=== PATIENT | female | born 1955 | race Caucasian/White ===

== ENCOUNTER 2017-10-02 16:30 | Inpatient (IN) ==
[2017-10-02] MEDS ORDERED: methylPREDNISolone 125 MG/2 ML VIAL IVP ONE (16:55)
[2017-10-02] MEDS ORDERED: Ipratropium/Albuterol Neb 3 ML IH ONE (16:55)
[2017-10-02] MEDS ORDERED: 0.9 % Sodium Chloride 1,000 ML IVC ONE (16:56)
[2017-10-02 17:04] LABS: Basophils # 0.1 K/mcL (0.0-0.2); Basophils % 0.7 %; Eosinophils # 0.1 K/mcL (0.0-0.6); Eosinophils % 0.8 %; Hemoglobin 18.9 g/dL (11.5-15.4); Immature Granulocytes % 0.4 % (0-4); Lymphocytes # 2.1 K/mcL (0.6-4.6); Lymphocytes % 15.2 %; Mean Corpuscular HGB Conc 32.8 g/dL (31.6-35.5); Mean Corpuscular Hemoglobin 30.6 pg (28.0-33.3); Mean Corpuscular Volume 93.2 fL (83.0-100.0); Mean Platelet Volume 11.3 fL (9.4-12.4); Neutrophils # 10.3 K/mcL (1.6-8.9); Platelet Count 187 K/mcL (140-400); Red Blood Count 6.18 M/mcL (3.82-4.97); Segmented Neutrophils % 75.9 %
[2017-10-02 17:06] LABS: Hematocrit 57.6 % (35.3-44.9)
[2017-10-02 17:15] LABS: ABG Base Excess 8 mEq/L (-2 to 3); ABG HCO3 36 mEq/L (21-27); ABG Oxygen Saturation 94 % (95-98); ABG PCO2 58 mmHg (35-45); ABG PO2 74 mmHg (85-104); ABG TCO2 37 mEq/L (20-26)
--- NOTE | 2017-10-02 17:18 | Emergency Department Note ---
START Narrative - START START: I examined this patient and my medical decision-making was reviewed with the Resident Physician. I agree with the documented findings, disposition and treatment plan as described except to the extent set forth below. 62 year old female presnt to the ED via EMS for hypoxia to 70% on 4LNC and typically wears 2.5LNC continously and has a history of COPD and is currently tachycardiac and states that she has gabo a productive cugh and has not had the flu shot this year. nida as been placed on bipap and states that she has been getting progressively worse over the past few days. WE will rule out PE, pneumonia, and/or ACOPDE. She will be admitted to medicine today. She is currently 94% on Bipap.
--- NOTE | 2017-10-02 17:20 | Emergency Department Note ---
Disposition Clinical Impression: COPD exacerbation Pneumonia Qualifiers: Pneumonia type: due to unspecified organism Laterality: bilateral Lung location : unspecified part of lung Qualified Code(s): J18.9 - Pneumonia, unspecified organism Disposition: Admitted As Inpatient Condition: Good SOB HPI - General Chief Complaint: ED Shortness of Breath/Dyspnea Stated Complaint: LIZZY Time Seen by Provider: 10/02/17 16:42 Source: patient Limitations: no limitations Nursing Notes Reviewed: Yes Vital Signs Reviewed: Yes - History of Present Illness COPD. On 2.5L of O2 at home. Continuing to use at home medications Increasing use of home oxygen Productive cough and subjective fevers. Patient presents for evaluation of shortness of breath. Patient states she felt something coming on approximately 2 weeks ago. She complains of a heaviness in her chest associated shortness of breath. Patient initially presents hypoxic at 74% on her home oxygen. Patient was laced on BiPAP with improvement of her oxygen saturation to 95%. Her normal oxygen saturation at home is anywhere from 88-91%. Diffuse wheezing bilaterally. - Related Data Home Medications Medication Instructions Recorded Confirmed Albuterol Sulfate [Ventolin Hfa] 2 puff IH Q4H PRN 10/02/17 10/02/17 Aspirin 325 mg PO DAILY 10/02/17 10/02/17 Fluticasone/Salmeterol [Advair 1 each IH BID 10/02/17 10/02/17 250-50 Diskus] Furosemide [Lasix] 20 mg PO TID 10/02/17 10/02/17 Ipratropium/Albuterol Neb [Duoneb] 3 ml IH Q6H PRN 10/02/17 10/02/17 Lisinopril/Hydrochlorothiazide 1 each PO BID 10/02/17 10/02/17 [Zestoretic 20-12.5 mg Tablet] Lovastatin [Lovastatin] 40 mg PO HS 10/02/17 10/02/17 Metoprolol [Lopressor] 100 mg PO BID 10/02/17 10/02/17 Oxygen 2 l NS AD 10/02/17 10/02/17 Potassium Chloride [Klor-Con 10] 5 meq PO DAILY 10/02/17 10/02/17 amLODIPine [Norvasc] 5 mg PO DAILY 10/02/17 10/02/17 Allergies Allergy/AdvReac Type Severity Reaction Status Date / Time Penicillins [PCN] Allergy Mild Rash Verified 01/01/16 21:52 All systems ED: reviewed and negative except as stated. Constitutional: Reports: fever, chills Cardiovascular: Reports: chest pain Respiratory: Reports: cough, dyspnea, wheezes, sputum production Gastrointestinal: Denies: abdominal pain, nausea, vomiting Genitourinary: Denies: urgency, dysuria Musculoskeletal: Denies: back pain Integumentary: Denies: rash, abrasion Endocrine: Reports: fatigue Past Medical History - Past Medical History Medical history: Reports: CHF, COPD, hypertension Psychiatric history: Reports: no psych history - Social History Smoking Status: Former smoker Smokeless Tobacco Status: No Alcohol use: Reports: none Drug use: Reports: none Physical Exam General appearance: Mild tachypnea persisted with breathing Eyes: anicteric sclerae, moist conjunctivae; PERRL HENT: Atraumatic; oropharynx clear with moist mucous membranes and no mucosal ulcerations Neck: Normal inspection; Trachea midline; FROM, supple Lungs: Diffuse wheezing bilaterally CV: Tachycardic, regular rhythm Abdomen: Soft, non-tender; no rebound or gaurding Extremities: No peripheral edema or extremity lymphadenopathy Skin: Normal temperature; no rash, ulcers or lesions Psych: Appropriate mood and affect Neuro: alert and oriented to person, place and time - General Limitations: no limitations General appearance: alert, in no apparent distress Course - Reevaluation(s) Reevaluation #1: Multifocal pneumonia on CTA. Ceftriaxone and azithromycin started. Last hospitalization was 2009. The patient does not want to be admitted to the hospital but understands the high risk of decompensation agrees to stay. The patient does not want intubated if it comes to that point. - Consultations Consultation #1: 7p Dr. Rene discussed with hospitalist. Pt accepted Vital Signs Temperature 98.2 F 10/02/17 16:36 Pulse Rate 112 10/02/17 16:36 Respiratory Rate 24 10/02/17 16:36 Blood Pressure 113/59 10/02/17 16:36 O2 Sat by Pulse Oximetry 64 10/02/17 16:36 Temperature 98.2 F 10/03/17 07:52 Pulse Rate 67 10/03/17 07:52 Respiratory Rate 16 10/03/17 07:52 Blood Pressure 114/63 10/03/17 07:52 O2 Sat by Pulse Oximetry 91 10/03/17 07:52 Oxygen Delivery Oxygen Delivery Bipap Shortness of Breath/Dyspnea - Lab Data Result diagrams: 10/03/17 03:52 10/03/17 03:52 Lab Results 10/02/17 10/02/17 10/02/17 Range/Units 16:55 16:55 16:55 WBC 13.6 H (4.3-11.1) K/mcL RBC 6.18 H (3.82-4.97) M/mcL Hgb 18.9 H (11.5-15.4) g/dL Hct 57.6 H (35.3-44.9) % MCV 93.2 (83.0-100.0) fL MCH 30.6 (28.0-33.3) pg MCHC 32.8 (31.6-35.5) g/dL RDW 15.0 H (11.5-14.5) % Plt Count 187 (140-400) K/mcL MPV 11.3 (9.4-12.4) fL Immature Gran % 0.4 (0-4) % Seg Neutrophils % 75.9 % Lymphocytes % 15.2 % Monocytes % 7.0 % Eosinophils % 0.8 % Basophils % 0.7 % Neutrophils # 10.3 H (1.6-8.9) K/mcL Lymphocytes # 2.1 (0.6-4.6) K/mcL Monocytes # 1.0 (0.0-1.3) K/mcL Eosinophils # 0.1 (0.0-0.6) K/mcL Basophils # 0.1 (0.0-0.2) K/mcL PT (9.4-12.1) Seconds INR APTT (26.0-36.0) Seconds ABG pH (7.32-7.45) pH Units ABG pCO2 (35-45) mmHg ABG pO2 (85-104) mmHg ABG HCO3 (21-27) mEq/L ABG Total CO2 (20-26) mEq/L ABG O2 Saturation (95-98) % ABG Base Excess (-2 to 3) mEq/L O2 Delivery Device Inspired O2 (1-15=lpm wx79-389=%) Sodium 139 (136-145) mEq/L Potassium 3.9 (3.5-5.1) mEq/L Chloride 96 L (98-107) mEq/L Carbon Dioxide 37 H (23-29) mEq/L BUN 26 H (8-23) mg/dL Creatinine 1.08 (0.60-1.20) mg/dL Est GFR ( Amer) > 60 (> 60) Est GFR (Non-Af Amer) 52 L (> 60) BUN/Creatinine Ratio 24 (6-26) Glucose 343 H (70-105) mg/dL Calculated Osmolality 306 H (280-300) Lactic Acid 1.4 (0.5-2.2) mmol/L Calcium 9.0 (8.6-10.3) mg/dL Phosphorus 4.0 (2.7-4.5) mg/dL Magnesium 1.9 (1.6-2.6) mg/dL Total Bilirubin 0.9 (0.3-1.0) mg/dL Direct Bilirubin 0.3 H (0.0-0.2) mg/dL Indirect Bilirubin 0.6 (0.0-1.2) mg/dL AST 19 (13-39) Units/L ALT 19 (7-52) Units/L Alkaline Phosphatase 99 (34-104) Units/L Troponin I (< 0.04) ng/mL Serum Total Protein 6.7 (6.4-8.9) g/dL Albumin 3.5 (3.5-5.7) g/dL Globulin 3.2 (2.4-3.5) g/dL Albumin/Globulin Ratio 1.1 (1.1-2.2) Urine Color (Yellow) Urine Clarity (Clear) Urine pH (5.0-8.0) pH Units Ur Specific [place] (1.010-1.025) Urine Protein (Neg-Trace) mg/dL Urine Glucose (UA) (Normal) mg/dL Urine Ketones (Negative) mg/dL Urine Blood (Negative) Urine Nitrite (Negative) Urine Bilirubin (Negative) Urine Urobilinogen (Normal) mg/dL Ur Leukocyte Esterase (Negative) Ur Culture Indicated? (NO) 10/02/17 10/02/17 10/02/17 Range/Units 16:55 17:12 18:02 WBC (4.3-11.1) K/mcL RBC (3.82-4.97) M/mcL Hgb (11.5-15.4) g/dL Hct (35.3-44.9) % MCV (83.0-100.0) fL MCH (28.0-33.3) pg MCHC (31.6-35.5) g/dL RDW (11.5-14.5) % Plt Count (140-400) K/mcL MPV (9.4-12.4) fL Immature Gran % (0-4) % Seg Neutrophils % % Lymphocytes % % Monocytes % % Eosinophils % % Basophils % % Neutrophils # (1.6-8.9) K/mcL Lymphocytes # (0.6-4.6) K/mcL Monocytes # (0.0-1.3) K/mcL Eosinophils # (0.0-0.6) K/mcL Basophils # (0.0-0.2) K/mcL PT 12.3 H (9.4-12.1) Seconds INR 1.1 APTT 27.6 (26.0-36.0) Seconds ABG pH 7.40 (7.32-7.45) pH Units ABG pCO2 58 H (35-45) mmHg ABG pO2 74 L (85-104) mmHg ABG HCO3 36 H (21-27) mEq/L ABG Total CO2 37 H (20-26) mEq/L ABG O2 Saturation 94 L (95-98) % ABG Base Excess 8 H (-2 to 3) mEq/L O2 Delivery Device BiPAP Inspired O2 60.0 (1-15=lpm qq93-345=%) Sodium (136-145) mEq/L Potassium (3.5-5.1) mEq/L Chloride (98-107) mEq/L Carbon Dioxide (23-29) mEq/L BUN (8-23) mg/dL Creatinine (0.60-1.20) mg/dL Est GFR ( Amer) (> 60) Est GFR (Non-Af Amer) (> 60) BUN/Creatinine Ratio (6-26) Glucose (70-105) mg/dL Calculated Osmolality (280-300) Lactic Acid (0.5-2.2) mmol/L Calcium (8.6-10.3) mg/dL Phosphorus (2.7-4.5) mg/dL Magnesium (1.6-2.6) mg/dL Total Bilirubin (0.3-1.0) mg/dL Direct Bilirubin (0.0-0.2) mg/dL Indirect Bilirubin (0.0-1.2) mg/dL AST (13-39) Units/L ALT (7-52) Units/L Alkaline Phosphatase (34-104) Units/L Troponin I < 0.03 (< 0.04) ng/mL Serum Total Protein (6.4-8.9) g/dL Albumin (3.5-5.7) g/dL Globulin (2.4-3.5) g/dL Albumin/Globulin Ratio (1.1-2.2) Urine Color (Yellow) Urine Clarity (Clear) Urine pH (5.0-8.0) pH Units Ur Specific [place] (1.010-1.025) Urine Protein (Neg-Trace) mg/dL Urine Glucose (UA) (Normal) mg/dL Urine Ketones (Negative) mg/dL Urine Blood (Negative) Urine Nitrite (Negative) Urine Bilirubin (Negative) Urine Urobilinogen (Normal) mg/dL Ur Leukocyte Esterase (Negative) Ur Culture Indicated? (NO) 10/02/17 Range/Units 20:45 WBC (4.3-11.1) K/mcL RBC (3.82-4.97) M/mcL Hgb (11.5-15.4) g/dL Hct (35.3-44.9) % MCV (83.0-100.0) fL MCH (28.0-33.3) pg MCHC (31.6-35.5) g/dL RDW (11.5-14.5) % Plt Count (140-400) K/mcL MPV (9.4-12.4) fL Immature Gran % (0-4) % Seg Neutrophils % % Lymphocytes % % Monocytes % % Eosinophils % % Basophils % % Neutrophils # (1.6-8.9) K/mcL Lymphocytes # (0.6-4.6) K/mcL Monocytes # (0.0-1.3) K/mcL Eosinophils # (0.0-0.6) K/mcL Basophils # (0.0-0.2) K/mcL PT (9.4-12.1) Seconds INR APTT (26.0-36.0) Seconds ABG pH (7.32-7.45) pH Units ABG pCO2 (35-45) mmHg ABG pO2 (85-104) mmHg ABG HCO3 (21-27) mEq/L ABG Total CO2 (20-26) mEq/L ABG O2 Saturation (95-98) % ABG Base Excess (-2 to 3) mEq/L O2 Delivery Device Inspired O2 (1-15=lpm re34-551=%) Sodium (136-145) mEq/L Potassium (3.5-5.1) mEq/L Chloride (98-107) mEq/L Carbon Dioxide (23-29) mEq/L BUN (8-23) mg/dL Creatinine (0.60-1.20) mg/dL Est GFR ( Amer) (> 60) Est GFR (Non-Af Amer) (> 60) BUN/Creatinine Ratio (6-26) Glucose (70-105) mg/dL Calculated Osmolality (280-300) Lactic Acid (0.5-2.2) mmol/L Calcium (8.6-10.3) mg/dL Phosphorus (2.7-4.5) mg/dL Magnesium (1.6-2.6) mg/dL Total Bilirubin (0.3-1.0) mg/dL Direct Bilirubin (0.0-0.2) mg/dL Indirect Bilirubin (0.0-1.2) mg/dL AST (13-39) Units/L ALT (7-52) Units/L Alkaline Phosphatase (34-104) Units/L Troponin I (< 0.04) ng/mL Serum Total Protein (6.4-8.9) g/dL Albumin (3.5-5.7) g/dL Globulin (2.4-3.5) g/dL Albumin/Globulin Ratio (1.1-2.2) Urine Color Yellow (Yellow) Urine Clarity Clear (Clear) Urine pH 5.5 (5.0-8.0) pH Units Ur Specific [place] > 1.030 H (1.010-1.025) Urine Protein Negative (Neg-Trace) mg/dL Urine Glucose (UA) 250 H (Normal) mg/dL Urine Ketones Negative (Negative) mg/dL Urine Blood Negative (Negative) Urine Nitrite Negative (Negative) Urine Bilirubin Negative (Negative) Urine Urobilinogen Normal (Normal) mg/dL Ur Leukocyte Esterase Negative (Negative) Ur Culture Indicated? NO (NO)
[2017-10-02 17:22] LABS: Alanine Aminotransferase 19 Units/L (7-52); Albumin 3.5 g/dL (3.5-5.7); Albumin/Globulin Ratio 1.1 (1.1-2.2); Alkaline Phosphatase 99 Units/L (34-104); Aspartate Amino Transferase 19 Units/L (13-39); BUN/Creatinine Ratio 24 (6-26); Bilirubin,Direct 0.3 mg/dL (0.0-0.2); Bilirubin,Indirect 0.6 mg/dL (0.0-1.2); Bilirubin,Total 0.9 mg/dL (0.3-1.0); Blood Urea Nitrogen 26 mg/dL (8-23); Carbon Dioxide 37 mEq/L (23-29); Chloride 96 mEq/L (98-107); Globulin 3.2 g/dL (2.4-3.5); Glucose 343 mg/dL (70-105); Magnesium 1.9 mg/dL (1.6-2.6); Osmolality,Calculated 306 (280-300); Potassium 3.9 mEq/L (3.5-5.1); Sodium 139 mEq/L (136-145); Total Protein 6.7 g/dL (6.4-8.9); eGFR For African Americans > 60 (> 60); eGFR For Non-African Americans 52 (> 60)
[2017-10-02 18:23] LABS: INR 1.1; Prothrombin Time 12.3 Seconds (9.4-12.1)
[2017-10-02 18:26] LABS: Activated Partial Thrombo Time 27.6 Seconds (26.0-36.0)
[2017-10-02] MEDS ORDERED: Azithromycin 500 MG in D5% in Water 250 ML IVPB ONE (19:12)
[2017-10-02] MEDS ORDERED: cefTRIAXone 1,000 MG in Water for inj. (sterile) 10 ML IVP ONE (19:12)
[2017-10-02 20:54] LABS: Bilirubin,Urine Negative (Negative); Blood,Urine Negative (Negative); Clarity,Urine Clear (Clear); Color,Urine Yellow (Yellow); Glucose,Urine (UA) 250 mg/dL (Normal); Ketones,Urine Negative (Negative); Leukocyte Esterase,Urine Negative (Negative); Nitrite,Urine Negative (Negative); PH,Urine 5.5 pH Units (5.0-8.0); Protein,Urine Negative (Neg-Trace); Specific Gravity,Urine > 1.030 (1.010-1.025); Urobilinogen,Urine Normal (Normal)
--- NOTE | 2017-10-03 01:20 | Internal Med History&Physical ---
Date of Encounter: 10/03/17 Time of Encounter: 01:13 Assessment and Plan (1) Acute respiratory failure with hypoxia Current visit: Yes Status: Acute Duo Nebs scheduled, Prednisone PO 5 day burst, follow-up flu and respiratory studies including sputum cultures and procalcitonin She was scheduled to get Azithromycin and Rocephin in the ED but she did not receive. She has pencillin reaction of hives. Will switch to Levaquin to cover both atypicals and gram positivies. She is slightly fluid overloaded and will get IV Lasix for now and eventually resume her home lasix dose of 20 mg TID PO. Check BNP. Echo from 01/2017 reviewed. (2) Diastolic heart failure Current visit: Yes Status: Acute Qualifiers: Heart failure chronicity: acute on chronic Qualified Code(s): I50.33 - Acute on chronic diastolic (congestive) heart failure (3) Lung nodule seen on imaging study Current visit: Yes Status: Acute Based on CTA read this may be related to multifocal pneumonia but cannot rule out metastasis. Consider further workup when stable, possibly as outpatient. (4) COPD exacerbation Current visit: Yes Status: Acute (5) Pneumonia Current visit: Yes Status: Acute Levaquin. Qualifiers: Pneumonia type: due to unspecified organism Laterality: bilateral Lung location: unspecified part of lung Qualified Code(s): J18.9 - Pneumonia, unspecified organism (6) Essential hypertension Current visit: Yes Status: Acute Continue home medications (7) DVT prophylaxis Current visit: Yes Status: Acute Heparin sq Internal Medicine - H&P: HPI Chief complaint: dyspnea History of present illness: Ms. Kumar is a 62 year old female with history of COPD on 2.5L O2 at home, Diastolic heart failure (EF 55% 01/2017), HTN presented for 2 weeks of dyspnea requiring increased oxygen at home. Gradually started with subjective fevers, orthopnea, productive cough. Admits to mild edema of lower extremities. She denies any wheezing but does have significant dyspnea. She admits to high sodium in her diet recently, usually takes Lasix at home. Patient was hypoxic in ED at 74% SpO2 and placed on BiPAP and improved to 95%. A CTA chest showed multifocal pneumonia, new spiculated lung nodule that is 1.9 cm, and mediastinal lymphadenoapathy that likely benign and reactive. She is now on 3L O2 in no acute distress. Past Med Surg Social Fam HX - Past Medical History Medical history: CHF, COPD, hypertension Psychiatric history: no psych history - Social History Smoking Status: Former smoker Smokeless Tobacco Status: No Alcohol use: none Drug use: none - Family History Mother Hx Family Cancer: Yes Internal Medicine - H&P: Meds Albuterol Sulfate [Ventolin Hfa] 2 puff IH Q4H PRN 10/02/17 [History] Aspirin 325 mg PO DAILY 10/02/17 [History] Fluticasone/Salmeterol [Advair 250-50 Diskus] 1 each IH BID 10/02/17 [History] Furosemide [Lasix] 20 mg PO TID 10/02/17 [History] Ipratropium/Albuterol Neb [Duoneb] 3 ml IH Q6H PRN 10/02/17 [History] Lisinopril/Hydrochlorothiazide [Zestoretic 20-12.5 mg Tablet] 1 each PO BID [History] Lovastatin [Lovastatin] 40 mg PO HS 10/02/17 [History] Metoprolol [Lopressor] 100 mg PO BID 10/02/17 [History] Oxygen 2 l NS AD 10/02/17 [History] Potassium Chloride [Klor-Con 10] 5 meq PO DAILY 10/02/17 [History] amLODIPine [Norvasc] 5 mg PO DAILY 10/02/17 [History] 3 Allergy/AdvReac Type Severity Reaction Status Date / Time Penicillins [PCN] Allergy Mild Rash Verified 01/01/16 21:52 All Systems PM: A 10-system review of systems was performed and is negative for pertinent findings except as documented above in the HPI. - Constitutional Constitutional: chills, fever(s), night sweats, no fatigue, no weight gain - EENT Eyes: no change in vision, no discharge, no pain, no photophobia - Cardiovascular Cardiovascular ROS IM: dyspnea, edema, orthopnea, no chest pain, no palpitations , no paroxysmal nocturnal dyspnea - Respiratory Respiratory: cough, dyspnea, dyspnea on exertion, chest congestion, excessive phlegm production, no hemoptysis, no wheezing - Gastrointestinal Gastrointestinal: no abdominal pain, no diarrhea, no hematemesis, no hematochezia, no melena, no nausea, no vomiting - Musculoskeletal Musculoskeletal ROS IM: no numbness, no tingling - Integumentary Integumentary IM: no rash, no unusual bruising - Neurological Neurological ROS: no confusion, no convulsions, no focal weakness, no numbness, no tingling, no tremor(s) - Constitutional Vitals: Temp Pulse Resp BP Pulse Ox 97.9 F 68 18 110/80 95 10/02/17 23:49 10/02/17 23:49 10/02/17 23:49 10/02/17 23:49 10/02/17 21:05 General appearance: Present: A&O X 3, no acute distress, obese, answers questions appropriately - Respiratory Respiratory exam: Present: decreased breath sounds. Absent: accessory muscle use, chest wall tenderness, CTAB Additional comments: scattered rhoni and course breath sounds, fair air exchange, no wheezing but inspiratory effort is poor. - Cardiovascular Cardiovascular exam: Present: RRR, +S1, +S2. Absent: diastolic murmur, gallop, rubs, systolic murmur - Extremities Exam Additional comments: trace bipedal non pitting edema Internal Med - H&P Results - Labs CBC & Chem 7: 10/02/17 16:55 10/02/17 16:55 Labs: Urine 10/02/17 Range/Units 20:45 Urine Color Yellow (Yellow) Urine Clarity Clear (Clear) Urine pH 5.5 (5.0-8.0) pH Units Ur Specific [place] > 1.030 H (1.010-1.025) Urine Protein Negative (Neg-Trace) mg/dL Urine Glucose (UA) 250 H (Normal) mg/dL
[2017-10-03] MEDS ORDERED: NON-FORMULARY MEDICATION 1 EACH EACH (Oxygen [Oxygen] 2 L) NS SCH (01:30)
[2017-10-03] MEDS ORDERED: Acetaminophen 325 MG TABLET PO PRN (01:37)
[2017-10-03] MEDS ORDERED: Naloxone 0.4 MG/ML INJ IVP PRN (01:37)
[2017-10-03] MEDS: Furosemide 40 MG/4 ML VIAL IVP SCH ×3 (02:29→16:49)
[2017-10-03] MEDS: Azithromycin 500 MG in D5% in Water 250 ML IVPB SCH (02:29)
[2017-10-03] MEDS: Ipratropium/Albuterol Neb 3 ML IH SCH ×6 (03:55→23:42)
[2017-10-03 04:17] LABS: Basophils % 0.4 %; Hemoglobin 18.2 g/dL (11.5-15.4); Immature Granulocytes % 0.5 % (0-4); Lymphocytes # 0.8 K/mcL (0.6-4.6); Lymphocytes % 9.9 %; Mean Corpuscular HGB Conc 32.2 g/dL (31.6-35.5); Mean Corpuscular Hemoglobin 30.2 pg (28.0-33.3); Mean Corpuscular Volume 93.9 fL (83.0-100.0); Mean Platelet Volume 11.7 fL (9.4-12.4); Monocytes # 0.1 K/mcL (0.0-1.3); Neutrophils # 7.2 K/mcL (1.6-8.9); Platelet Count 191 K/mcL (140-400); Red Blood Count 6.02 M/mcL (3.82-4.97); Red Cell Distribution Width 14.2 % (11.5-14.5); Segmented Neutrophils % 88.2 %
[2017-10-03 04:23] LABS: Hematocrit 56.5 % (35.3-44.9)
[2017-10-03 04:47] LABS: BUN/Creatinine Ratio 24 (6-26); Blood Urea Nitrogen 24 mg/dL (8-23); Calcium 8.5 mg/dL (8.6-10.3); Carbon Dioxide 32 mEq/L (23-29); Chloride 99 mEq/L (98-107); Glucose 460 mg/dL (70-105); Osmolality,Calculated 314 (280-300); Potassium 4.7 mEq/L (3.5-5.1); Sodium 140 mEq/L (136-145); eGFR For African Americans > 60 (> 60); eGFR For Non-African Americans 56 (> 60)
[2017-10-03] MEDS ORDERED: *HR* Heparin 5,000 UNIT/ML VIAL SQ SCH (06:00)
[2017-10-03] MEDS: Lisinopril-HCTZ 20-12.5mg TABLET PO SCH ×2 (08:09→20:37)
[2017-10-03] MEDS: Aspirin 325 MG TABLET PO SCH (08:09)
[2017-10-03] MEDS: Metoprolol 100 MG TABLET PO SCH ×2 (08:09→20:37)
[2017-10-03] MEDS: cefTRIAXone 1,000 MG in Water for inj. (sterile) 10 ML IVP SCH (08:10)
[2017-10-03] MEDS ORDERED: amLODIPine 5 MG TABLET PO SCH (09:00)
[2017-10-03] MEDS ORDERED: predniSONE 20 MG TABLET PO SCH (09:00)
[2017-10-03] MEDS ORDERED: D5% in Water 1,000 ML IVC PRN (11:03)
[2017-10-03] MEDS ORDERED: Dextrose Gel 15 GM/37.5 ML TUBE PO PRN ×2 (11:03)
[2017-10-03] MEDS ORDERED: *HR* Dextrose 50 % in Water (Syg) 50 ML SYRINGE IVP PRN (11:03)
[2017-10-03] MEDS: Budesonide/Formoterol 80/4.5 MDI IH SCH ×2 (11:23→20:54)
[2017-10-03 11:54] LABS: Hemoglobin A1C 8.9 %
[2017-10-03] MEDS: Insulin LISPRO 300 UNITS/3 ML VIAL SQ SCH ×3 (12:02→20:42)
--- NOTE | 2017-10-03 15:13 | Internal Med Progress Note ---
Date of Encounter: 10/03/17 Time of Encounter: 11:00 - Assessment and plan (1) Acute respiratory failure with hypoxia Current Visit: Yes Status: Acute Assessment and plan: Acute hypoxic respiratory failure - secondary to acute exacerbation of advanced COPD and multifocal pneumonia Continue DuoNeb breathing treatment, IV Solu-Medrol, Symbicort, IV Rocephin, IV Azithromycin O2 via NC, BiPAP as needed CTA chest - reviewed Chest x-ray - stable cardiomegaly, pulmonary venous hypertension, left lung base scarring Lactic acid - 1.4 WBC - 8.2 Cultures - pending Incentive spirometry, pulse ox, cardiac telemetry, labs in a.m., monitor closely (2) Pneumonia Current Visit: Yes Status: Acute Assessment and plan: Community-acquired pneumonia, present on admission - bilateral multifocal airspace consolidation with new 1.9 cm spiculated nodule with mild mediastinal lymphadenopathy Continue DuoNeb breathing treatment, IV Rocephin, IV Azithromycin, Tylenol PRN, O2 via NC CTA chest - reviewed Cultures -pending Cardiac telemetry, pulse ox, labs in a.m. Qualifiers: Pneumonia type: due to unspecified organism Laterality: bilateral Lung location: unspecified part of lung Qualified Code(s): J18.9 - Pneumonia, unspecified organism (3) Diastolic heart failure Current Visit: Yes Status: Acute Assessment and plan: Acute exacerbation of probable diastolic dysfunction, LVEF 55% Continue IV Lasix, Lopressor, Lisinopril Chest x-ray - stable cardiomegaly, pulmonary venous hypertension, left lung base scarring BNP - 238 Echocardiogram (02/04/2017) - LVEF 55%, indeterminate diastolic function, RV is mildly dilated Cardiac telemetry, Fluid restriction, strict I's and O's, daily weight Qualifiers: Heart failure chronicity: acute on chronic Qualified Code(s): I50.33 - Acute on chronic diastolic (congestive) heart failure (4) Lung nodule seen on imaging study Current Visit: Yes Status: Acute Assessment and plan: New 1.9 cm spiculated nodule within the posterior right lung apex - possibly related to multifocal pneumonia Mild mediastinal lymphadenopathy also present - likely benign and reactive Patient will need pulmonology follow-up and repeat CT - will need workup for possible malignancy (5) Diabetes mellitus Current Visit: Yes Status: Acute Assessment and plan: Newly diagnosed Type 2 Diabetes Mellitus, [id number], hyperglycemia Continue medium dose sliding scale insulin, glucose checks [facility] HbA1c - 8.9 ADA diet, diabetes education Qualifiers: Diabetes mellitus type: type 2 Diabetes mellitus complication status: without complication 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 Patient is awake and alert. In any distress. Denies chest pain. Complains of mild shortness of breath and cough with sputum production. No fever. Hemodynamically stable. Patient is hypoxic. She is on high flow oxygen. No other acute events or complaints. Admitted for acute respiratory failure secondary to COPD exacerbation and multifocal pneumonia. Patient is currently on bronchodilators and IV antibiotics. Continue BiPAP as needed. - Constitutional Vitals: Temp Pulse Resp BP Pulse Ox 98.2 F 67 16 114/63 88 10/03/17 07:52 10/03/17 07:52 10/03/17 11:25 10/03/17 07:52 10/03/17 11:25 General appearance: Present: cooperative, mild distress, A&O X 3, morbidly obese , pleasant, answers questions appropriately - Head Head exam: Present: atraumatic - Eye Eye exam: Present: EOMI - ENT ENT exam: Present: mucous membranes dry - Respiratory Respiratory exam: Present: rales (Mild bilateral), wheezes (Bilateral). Absent : accessory muscle use, chest wall tenderness, respiratory distress, rhonchi, tachypnea - Cardiovascular Cardiovascular exam: Present: RRR, +S1, +S2 - GI/Abdominal GI/Abdominal exam: Present: soft. Absent: distended, firm, guarding, tenderness - Extremities Exam Extremities exam: Present: pedal edema (Mild bilateral), radial pulses palpable and symmetrical. Absent: calf tenderness, cyanotic - Neurological Exam Neurological exam: Present: alert, oriented X3, no focal deficits. Absent: facial droop, speech deficit Internal Medicine: Result - Labs CBC & Chem 7: 10/03/17 03:52 10/03/17 03:52 Labs: Short CBC 10/03/17 Range/Units 03:52 WBC 8.2 (4.3-11.1) K/mcL Hgb 18.2 H (11.5-15.4) g/dL Hct 56.5 H (35.3-44.9) % Plt Count 191 (140-400) K/mcL Neutrophils # 7.2 (1.6-8.9) K/mcL BMP 10/03/17 03:52 Sodium 140 Potassium 4.7 Chloride 99 Carbon Dioxide 32 H BUN 24 H Creatinine 1.01 Glucose 460 H Calcium 8.5 L - ABG Interpretation ABG results: ABG ABG pH 7.40 pH Units (7.32-7.45) 10/02/17 17:12 ABG pCO2 58 mmHg (35-45) H 10/02/17 17:12 ABG pO2 74 mmHg (85-104) L 10/02/17 17:12 ABG O2 Saturation 94 % (95-98) L 10/02/17 17:12 PT/INR, D-dimer PT 12.3 Seconds (9.4-12.1) H 10/02/17 18:02 Consult Discharge Plan - Plan Referrals: Mihcel Grion MD [Primary Care Provider] - (WEB REQUEST SENT ON 10/03/17)
--- NOTE | 2017-10-03 16:38 | Electrocardiograph Report ---
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
[2017-10-03] MEDS: *HR* Heparin 5,000 UNIT/ML VIAL SQ SCH ×2 (16:48→20:37)
[2017-10-03] MEDS: methylPREDNISolone 125 MG/2 ML VIAL IVP SCH (16:49)
[2017-10-03] MEDS ORDERED: Insulin DETEMIR 100 UNIT/ML X5UNITS SQ SCH (21:00)
[2017-10-04] MEDS: methylPREDNISolone 125 MG/2 ML VIAL IVP SCH ×3 (00:14→16:37)
[2017-10-04] MEDS: Azithromycin 500 MG in D5% in Water 250 ML IVPB SCH (00:16)
[2017-10-04] MEDS: Ipratropium/Albuterol Neb 3 ML IH SCH ×6 (04:06→23:38)
[2017-10-04] MEDS: *HR* Heparin 5,000 UNIT/ML VIAL SQ SCH ×3 (05:14→20:54)
[2017-10-04 05:50] LABS: Potassium 4.3 mEq/L (3.5-5.1)
[2017-10-04 06:08] LABS: Basophils % 0.2 %; Hemoglobin 18.2 g/dL (11.5-15.4); Immature Granulocytes % 0.7 % (0-4); Lymphocytes # 0.9 K/mcL (0.6-4.6); Lymphocytes % 6.4 %; Mean Corpuscular HGB Conc 32.3 g/dL (31.6-35.5); Mean Corpuscular Hemoglobin 29.8 pg (28.0-33.3); Mean Corpuscular Volume 92.5 fL (83.0-100.0); Mean Platelet Volume 11.8 fL (9.4-12.4); Monocytes # 0.2 K/mcL (0.0-1.3); Monocytes % 1.6 %; Platelet Count 225 K/mcL (140-400); Red Cell Distribution Width 13.7 % (11.5-14.5); Segmented Neutrophils % 91.1 %
[2017-10-04 06:23] LABS: Hematocrit 56.4 % (35.3-44.9); Neutrophils # 12.9 K/mcL (1.6-8.9)
[2017-10-04] MEDS: Budesonide/Formoterol 80/4.5 MDI IH SCH ×2 (07:33→20:16)
[2017-10-04] MEDS: Furosemide 40 MG/4 ML VIAL IVP SCH (08:12)
[2017-10-04] MEDS: Metoprolol 100 MG TABLET PO SCH ×2 (08:13→20:51)
[2017-10-04] MEDS: Aspirin 325 MG TABLET PO SCH (08:13)
[2017-10-04] MEDS: Lisinopril-HCTZ 20-12.5mg TABLET PO SCH ×2 (08:13→20:51)
[2017-10-04] MEDS: cefTRIAXone 1,000 MG in Water for inj. (sterile) 10 ML IVP SCH (08:13)
[2017-10-04] MEDS: amLODIPine 5 MG TABLET PO SCH (08:14)
[2017-10-04] MEDS: Insulin LISPRO 300 UNITS/3 ML VIAL SQ SCH ×6 (08:17→20:54)
--- NOTE | 2017-10-04 08:51 | Internal Med Progress Note ---
<Damon Wallace - Last Filed: 10/04/17 08:47> Date of Encounter: 10/04/17 Time of Encounter: 08:48 - Assessment and plan (1) Acute respiratory failure with hypoxia Current Visit: Yes Status: Acute Assessment and plan: Acute hypoxic respiratory failure - secondary to acute exacerbation of advanced COPD and multifocal pneumonia patient continues to require high flow NC-10L tolerated BIPAP overnight continues to have productive cough/sob Legionella and streptococcal pneumonia antigen negative. Influenza negative. Initial blood cultures negative. continue solu-medrol, symbicort, ceftriaxone and azithromycin, O2, incentive spirometery (2) Pneumonia Current Visit: Yes Status: Acute Assessment and plan: continues to required high flow nasal cannula blood cultures, urine antigens, influenza screen negative Continue DuoNeb breathing treatment, IV Rocephin, IV Azithromycin, Tylenol PRN, O2 via NC cbc in am. Qualifiers: Pneumonia type: due to unspecified organism Laterality: bilateral Lung location: unspecified part of lung Qualified Code(s): J18.9 - Pneumonia, unspecified organism (3) COPD exacerbation Current Visit: Yes Status: Acute Assessment and plan: Presented with worsening cough, shortness of breath, productive sputum. His requiring increased oxygen supplementation. We will continue antibiotics, DuoNeb, Solu-Medrol as above. (4) Diabetes mellitus Current Visit: Yes Status: Acute Assessment and plan: Newly diagnosed Type 2 Diabetes Mellitus, [id number], hyperglycemia Patient hyperglycemia also exacerbated by steroid use. HbA1c - 8.9 Continue medium dose sliding scale. Increase basal insulin and start preprandial insulin. ADA diet, diabetes education Qualifiers: Diabetes mellitus type: type 2 Diabetes mellitus complication status: without complication Diabetes mellitus mcc insulin use: without intermediate designer use Qualified Code(s): E11.9 - Type 2 diabetes mellitus without complications (5) Diastolic heart failure Current Visit: Yes Status: Acute Assessment and plan: Acute exacerbation of probable diastolic dysfunction, patient does not have respiraotry crackles or pedal edema BP 105/68 this morning will d/c IV lasix and transition to PO. continue lisinopril and lopressor Continue IV Lasix, Lopressor, Lisinopril strick I/Os, daily weight. Qualifiers: Heart failure chronicity: acute on chronic Qualified Code(s): I50.33 - Acute on chronic diastolic (congestive) heart failure (6) DVT prophylaxis Current Visit: Yes Status: Acute Assessment and plan: Heparin subcutaneous (7) Essential hypertension Current Visit: Yes Status: Chronic Assessment and plan: Essential hypertension, controlled Continue home dose of Norvasc, Lisinopril/HCTZ, Lopressor (8) Lung nodule seen on imaging study Current Visit: Yes Status: Acute Assessment and plan: New 1.9 cm spiculated nodule within the posterior right lung apex - possibly related to multifocal pneumonia Mild mediastinal lymphadenopathy Patient will need pulmonology follow-up and repeat CT will setup appointment - Subjective Interval history: Patient reports continued shortness of breath, cough, productive sputum. She denies chest pain, palpitations, abdominal pain, nausea, vomiting, lower extremity pain, lower extremity swelling. At home patient is on 1 L oxygen. Currently she is on 10 L. Patient tolerated BiPAP last night. She is tolerating her diet. And has no other complaints. - Constitutional Vitals: Temp Pulse Resp BP Pulse Ox 97.7 F 59 17 105/68 94 10/04/17 07:59 10/04/17 07:59 10/04/17 07:59 10/04/17 07:59 10/04/17 07:59 General appearance: Present: cooperative, mild distress, A&O X 3, morbidly obese , pleasant, answers questions appropriately - Other Additional findings: General: mild distress Heart: Regular rate and rhythm with no murmur Lungs: diminished. mild wheezing. Abdomen: Soft nontender, nondistended positive bowel sounds Skin: warm and dry Extremities: Absent pedal edema, Neuro: alert oriented x 3 Vascular: Pedal and radial pulses 2 out of 4 Internal Medicine: Result - Labs CBC & Chem 7: 10/04/17 04:52 10/04/17 04:52 Labs: Short CBC 10/04/17 Range/Units 04:52 WBC 14.1 H D (4.3-11.1) K/mcL Hgb 18.2 H (11.5-15.4) g/dL Hct 56.4 H (35.3-44.9) % Plt Count 225 (140-400) K/mcL Neutrophils # 12.9 H (1.6-8.9) K/mcL BMP 10/04/17 04:52 Sodium 137 Potassium 4.3 Chloride 98 Carbon Dioxide 32 H BUN 43 H Creatinine 1.17 Glucose 383 H Calcium 9.0 - ABG Interpretation ABG results: ABG ABG pH 7.40 pH Units (7.32-7.45) 10/02/17 17:12 ABG pCO2 58 mmHg (35-45) H 10/02/17 17:12 ABG pO2 74 mmHg (85-104) L 10/02/17 17:12 ABG O2 Saturation 94 % (95-98) L 10/02/17 17:12 PT/INR, D-dimer PT 12.3 Seconds (9.4-12.1) H 10/02/17 18:02 Consult Discharge Plan - Plan Referrals: Michel Giron MD [Primary Care Provider] - (WEB REQUEST SENT ON 10/03/17) <Dorian Monroe - Last Filed: 10/04/17 11:56> Date of Encounter: 10/04/17 - Assessment and plan (1) Acute respiratory failure with hypoxia Current Visit: Yes Status: Acute (2) Pneumonia Current Visit: Yes Status: Acute Qualifiers: Pneumonia type: due to unspecified organism Laterality: bilateral Lung location: unspecified part of lung Qualified Code(s): J18.9 - Pneumonia, unspecified organism (3) Diastolic heart failure Current Visit: Yes Status: Acute Qualifiers: Heart failure chronicity: acute on chronic Qualified Code(s): I50.33 - Acute on chronic diastolic (congestive) heart failure (4) Lung nodule seen on imaging study Current Visit: Yes Status: Acute (5) Diabetes mellitus Current Visit: Yes Status: Acute Qualifiers: Diabetes mellitus type: type 2 Diabetes mellitus complication status: without complication Diabetes mellitus intermediate designer insulin use: without mcc use Qualified Code(s): E11.9 - Type 2 diabetes mellitus without complications (6) Essential hypertension Current Visit: Yes Status: Chronic (7) DVT prophylaxis Current Visit: Yes Status: Acute - Constitutional Vitals: Temp Pulse Resp BP Pulse Ox 97.7 F 59 16 105/68 90 10/04/17 07:59 10/04/17 07:59 10/04/17 09:04 10/04/17 07:59 10/04/17 09:04 Internal Medicine: Result - Labs CBC & Chem 7: 10/04/17 04:52 10/04/17 04:52 Labs: Short CBC 10/04/17 Range/Units 04:52 WBC 14.1 H D (4.3-11.1) K/mcL Hgb 18.2 H (11.5-15.4) g/dL Hct 56.4 H (35.3-44.9) % Plt Count 225 (140-400) K/mcL Neutrophils # 12.9 H (1.6-8.9) K/mcL BMP 10/04/17 04:52 Sodium 137 Potassium 4.3 Chloride 98 Carbon Dioxide 32 H BUN 43 H Creatinine 1.17 Glucose 383 H Calcium 9.0 - ABG Interpretation ABG results: ABG ABG pH 7.40 pH Units (7.32-7.45) 10/02/17 17:12 ABG pCO2 58 mmHg (35-45) H 10/02/17 17:12 ABG pO2 74 mmHg (85-104) L 10/02/17 17:12 ABG O2 Saturation 94 % (95-98) L 10/02/17 17:12 PT/INR, D-dimer PT 12.3 Seconds (9.4-12.1) H 10/02/17 18:02 - Attending Attestation I examined this patient and my medical decision-making was reviewed with the Resident Physician. I agree with the documented findings, disposition and treatment plan as described except to the extent set forth below. I have seen and examined the patient. She is awake and alert. Not in any distress. States she feels slightly better today. Her O2 sat is 93% on high flow oxygen. She requires BiPAP at night. At this time we will continue bronchodilators, IV steroids and IV antibiotics. Patient does have acute exacerbation of advanced COPD and also has multifocal pneumonia. Cultures are pending. No other acute events or complaints at this time. Lungs bilateral good air entry and bilateral wheezing present. Abdomen soft nontender.
[2017-10-04] MEDS ORDERED: Insulin DETEMIR 100 UNIT/ML X5UNITS SQ SCH ×3 (09:00→21:00)
[2017-10-04] MEDS: Furosemide 20 MG TABLET PO SCH ×3 (09:06→16:38)
[2017-10-04 14:25] LABS: Procalcitonin 0.1 ng/mL (<=0.10)
[2017-10-05] MEDS: Azithromycin 500 MG in D5% in Water 250 ML IVPB SCH (01:21)
[2017-10-05] MEDS: Ipratropium/Albuterol Neb 3 ML IH SCH ×6 (03:45→23:55)
[2017-10-05 04:41] LABS: Basophils % 0.2 %; Hematocrit 54.7 % (35.3-44.9); Immature Granulocytes % 0.7 % (0-4); Lymphocytes # 0.7 K/mcL (0.6-4.6); Lymphocytes % 5.8 %; Mean Corpuscular HGB Conc 32.9 g/dL (31.6-35.5); Mean Corpuscular Hemoglobin 30.6 pg (28.0-33.3); Mean Corpuscular Volume 92.9 fL (83.0-100.0); Mean Platelet Volume 11.4 fL (9.4-12.4); Monocytes # 0.2 K/mcL (0.0-1.3); Monocytes % 1.9 %; Neutrophils # 11.2 K/mcL (1.6-8.9); Platelet Count 202 K/mcL (140-400); Red Blood Count 5.89 M/mcL (3.82-4.97); Red Cell Distribution Width 14.1 % (11.5-14.5); Segmented Neutrophils % 91.4 %
[2017-10-05 04:56] LABS: BUN/Creatinine Ratio 47 (6-26); Blood Urea Nitrogen 50 mg/dL (8-23); Calcium 8.8 mg/dL (8.6-10.3); Carbon Dioxide 33 mEq/L (23-29); Chloride 100 mEq/L (98-107); Glucose 325 mg/dL (70-105); Osmolality,Calculated 312 (280-300); Potassium 4.2 mEq/L (3.5-5.1); Sodium 138 mEq/L (136-145); eGFR For African Americans > 60 (> 60); eGFR For Non-African Americans 52 (> 60)
[2017-10-05] MEDS: *HR* Heparin 5,000 UNIT/ML VIAL SQ SCH ×3 (05:16→22:02)
[2017-10-05] MEDS: Budesonide/Formoterol 80/4.5 MDI IH SCH ×2 (07:44→20:09)
[2017-10-05] MEDS: amLODIPine 5 MG TABLET PO SCH (08:41)
[2017-10-05] MEDS: cefTRIAXone 1,000 MG in Water for inj. (sterile) 10 ML IVP SCH (08:41)
[2017-10-05] MEDS: Aspirin 325 MG TABLET PO SCH (08:41)
[2017-10-05] MEDS: Metoprolol 100 MG TABLET PO SCH ×2 (08:41→22:01)
[2017-10-05] MEDS: Lisinopril-HCTZ 20-12.5mg TABLET PO SCH ×2 (08:41→22:02)
[2017-10-05] MEDS: Furosemide 20 MG TABLET PO SCH ×3 (08:41→16:19)
[2017-10-05] MEDS: methylPREDNISolone 125 MG/2 ML VIAL IVP SCH ×3 (08:42→16:19)
[2017-10-05] MEDS: Insulin LISPRO 300 UNITS/3 ML VIAL SQ SCH ×7 (08:43→22:00)
--- NOTE | 2017-10-05 13:50 | Internal Med Progress Note ---
Date of Encounter: 10/05/17 Time of Encounter: 09:50 - Assessment and plan (1) Acute respiratory failure with hypoxia Current Visit: Yes Status: Acute Assessment and plan: Acute hypoxic respiratory failure - secondary to acute exacerbation of advanced COPD and multifocal pneumonia - continues to have mild shortness of breath and cough Continue DuoNeb breathing treatment, IV Solu-Medrol, IV Rocephin, Symbicort, IV Azithromycin patient continues to require high flow NC-10L, continued BIPAP overnight Legionella and streptococcal pneumonia antigen - negative Influenza - negative Blood cultures - negative WBC - 12.2 Continue incentive spirometry, pulse ox, cardiac telemetry, labs in a.m., monitor closely (2) Pneumonia Current Visit: Yes Status: Acute Assessment and plan: continues to required high flow nasal cannula blood cultures, urine antigens, influenza screen negative Continue DuoNeb breathing treatment, IV Rocephin, IV Azithromycin, Tylenol PRN, O2 via NC Labs in a.m. Qualifiers: Pneumonia type: due to unspecified organism Laterality: bilateral Lung location: unspecified part of lung Qualified Code(s): J18.9 - Pneumonia, unspecified organism (3) Diastolic heart failure Current Visit: Yes Status: Acute Assessment and plan: Acute exacerbation of probable diastolic dysfunction, LVEF 55% patient does not have respiratory crackles or pedal edema Continue Lasix PO, Lisinopril, Lopressor strict I/Os, daily weight, cardiac telemetry Qualifiers: Heart failure chronicity: acute on chronic Qualified Code(s): I50.33 - Acute on chronic diastolic (congestive) heart failure (4) Lung nodule seen on imaging study Current Visit: Yes Status: Acute Assessment and plan: New 1.9 cm spiculated nodule within the posterior right lung apex - possibly related to multifocal pneumonia Mild mediastinal lymphadenopathy Patient will need pulmonology follow-up and repeat CT will setup appointment (5) Diabetes mellitus Current Visit: Yes Status: Acute Assessment and plan: Newly diagnosed Type 2 Diabetes Mellitus, [id number]-fdaiqwitw, hyperglycemia Patient hyperglycemia also exacerbated by steroid use HbA1c - 8.9 Continue medium dose sliding scale. Increase basal insulin and start preprandial insulin ADA diet, diabetes education Qualifiers: Diabetes mellitus type: type 2 Diabetes mellitus complication status: without complication Diabetes mellitus [facility] insulin use: without joint terminal attack controller use Qualified Code(s): E11.9 - Type 2 diabetes mellitus without complications (6) Essential hypertension Current Visit: Yes Status: Chronic Assessment and plan: Essential hypertension, controlled Continue home dose of Norvasc, Lisinopril/HCTZ, Lopressor (7) DVT prophylaxis Current Visit: Yes Status: Acute Assessment and plan: Heparin subcutaneous - Time Spent With Patient 25 - 35 minutes - Subjective Interval history: Examined this morning. Patient is awake and alert. Not in any distress. Denies chest pain. Complains of mild shortness of breath which is worse with exertion. Continues to have mild cough. No fever. Hemodynamically stable. Patient is hypoxic. She is on high flow oxygen at 10 L. Patient still has high oxygen requirement at this time, although she states that she feels better. No other acute events or complaints. Admitted for acute respiratory failure secondary to COPD exacerbation and multifocal pneumonia. Patient is currently on bronchodilators and IV antibiotics. Continue BiPAP at night. Patient and family have been explained about guarded condition. - Constitutional Vitals: Temp Pulse Resp BP Pulse Ox 97.7 F 66 18 102/61 88 10/05/17 11:28 10/05/17 11:28 10/05/17 11:30 10/05/17 11:28 10/05/17 11:30 General appearance: Present: cooperative, A&O X 3, morbidly obese, pleasant, no acute distress, answers questions appropriately - Head Head exam: Present: atraumatic - Eye Eye exam: Present: EOMI - ENT ENT exam: Present: mucous membranes dry - Respiratory Respiratory exam: Present: rhonchi (Mild bilateral), wheezes (Mild bilateral). Absent: accessory muscle use, chest wall tenderness, rales, respiratory distress , tachypnea - Cardiovascular Cardiovascular exam: Present: RRR, +S1, +S2 - GI/Abdominal GI/Abdominal exam: Present: soft. Absent: distended, firm, guarding, tenderness - Extremities Exam Extremities exam: Present: pedal edema (Mild bilateral), radial pulses palpable and symmetrical. Absent: calf tenderness, cyanotic - Neurological Exam Neurological exam: Present: alert, oriented X3, no focal deficits. Absent: facial droop, speech deficit Internal Medicine: Result - Labs CBC & Chem 7: 10/05/17 03:39 10/05/17 03:39 Labs: Short CBC 10/05/17 Range/Units 03:39 WBC 12.2 H (4.3-11.1) K/mcL Hgb 18.0 H (11.5-15.4) g/dL Hct 54.7 H (35.3-44.9) % Plt Count 202 (140-400) K/mcL Neutrophils # 11.2 H (1.6-8.9) K/mcL BMP 10/05/17 03:39 Sodium 138 Potassium 4.2 Chloride 100 Carbon Dioxide 33 H BUN 50 H Creatinine 1.07 Glucose 325 H Calcium 8.8 - ABG Interpretation ABG results: ABG ABG pH 7.40 pH Units (7.32-7.45) 10/02/17 17:12 ABG pCO2 58 mmHg (35-45) H 10/02/17 17:12 ABG pO2 74 mmHg (85-104) L 10/02/17 17:12 ABG O2 Saturation 94 % (95-98) L 10/02/17 17:12 PT/INR, D-dimer PT 12.3 Seconds (9.4-12.1) H 10/02/17 18:02 Consult Discharge Plan - Plan Referrals: Michel Giron MD [Primary Care Provider] - (WEB REQUEST SENT ON 10/03/17)
[2017-10-05] MEDS: Insulin DETEMIR 100 UNIT/ML X5UNITS SQ SCH (22:01)
[2017-10-06] MEDS: methylPREDNISolone 125 MG/2 ML VIAL IVP SCH ×3 (01:13→17:08)
[2017-10-06] MEDS: Azithromycin 500 MG in D5% in Water 250 ML IVPB SCH (01:14)
[2017-10-06] MEDS: Ipratropium/Albuterol Neb 3 ML IH SCH ×6 (04:15→23:26)
[2017-10-06 05:19] LABS: Basophils % 0.3 %; Hemoglobin 18.4 g/dL (11.5-15.4); Immature Granulocytes % 0.8 % (0-4); Lymphocytes # 0.7 K/mcL (0.6-4.6); Lymphocytes % 7.1 %; Mean Corpuscular HGB Conc 32.5 g/dL (31.6-35.5); Mean Corpuscular Hemoglobin 29.8 pg (28.0-33.3); Mean Corpuscular Volume 91.7 fL (83.0-100.0); Mean Platelet Volume 11.1 fL (9.4-12.4); Monocytes # 0.3 K/mcL (0.0-1.3); Monocytes % 2.9 %; Neutrophils # 9.1 K/mcL (1.6-8.9); Platelet Count 184 K/mcL (140-400); Red Blood Count 6.18 M/mcL (3.82-4.97); Red Cell Distribution Width 13.5 % (11.5-14.5); Segmented Neutrophils % 88.9 %
[2017-10-06 05:21] LABS: Hematocrit 56.7 % (35.3-44.9)
[2017-10-06 05:32] LABS: BUN/Creatinine Ratio 42 (6-26); Blood Urea Nitrogen 44 mg/dL (8-23); Calcium 8.8 mg/dL (8.6-10.3); Carbon Dioxide 37 mEq/L (23-29); Chloride 99 mEq/L (98-107); Glucose 301 mg/dL (70-105); Osmolality,Calculated 314 (280-300); Potassium 3.9 mEq/L (3.5-5.1); Sodium 141 mEq/L (136-145); eGFR For African Americans > 60 (> 60); eGFR For Non-African Americans 54 (> 60)
[2017-10-06] MEDS: Budesonide/Formoterol 80/4.5 MDI IH SCH ×2 (07:38→20:03)
[2017-10-06] MEDS: Insulin LISPRO 300 UNITS/3 ML VIAL SQ SCH ×7 (09:15→21:04)
[2017-10-06] MEDS: cefTRIAXone 1,000 MG in Water for inj. (sterile) 10 ML IVP SCH (09:52)
[2017-10-06] MEDS: Insulin DETEMIR 100 UNIT/ML X5UNITS SQ SCH ×2 (09:54→20:59)
[2017-10-06] MEDS: Furosemide 20 MG TABLET PO SCH ×3 (09:54→17:08)
[2017-10-06] MEDS: Aspirin 325 MG TABLET PO SCH (09:54)
[2017-10-06] MEDS: amLODIPine 5 MG TABLET PO SCH (09:55)
[2017-10-06] MEDS: Metoprolol 100 MG TABLET PO SCH ×2 (09:55→20:57)
[2017-10-06] MEDS: Lisinopril-HCTZ 20-12.5mg TABLET PO SCH ×2 (09:55→20:57)
--- NOTE | 2017-10-06 12:12 | Internal Med Progress Note ---
<Damon Wallace - Last Filed: 10/06/17 12:10> Date of Encounter: 10/06/17 Time of Encounter: 12:10 - Assessment and plan (1) Acute respiratory failure with hypoxia Current Visit: Yes Status: Acute Assessment and plan: Acute hypoxic respiratory failure - secondary to acute exacerbation of advanced COPD and multifocal pneumonia sob improved, has nonproductive cough. Continue DuoNeb breathing treatment, IV Solu-Medrol, IV Rocephin, Symbicort, IV Azithromycin O2 weaned to 9L. Legionella and streptococcal pneumonia antigen - negative Influenza - negative Blood cultures - negative WBC - 10. CBC in AM (2) Pneumonia Current Visit: Yes Status: Acute Assessment and plan: requiring 9L O2, an improvement from yesterday blood cultures, urine antigens, influenza screen negative Continue DuoNeb breathing treatment, IV Rocephin, IV Azithromycin, Tylenol PRN, O2 via NC Labs in a.m. continue bipap at night. Qualifiers: Pneumonia type: due to unspecified organism Laterality: bilateral Lung location: unspecified part of lung Qualified Code(s): J18.9 - Pneumonia, unspecified organism (3) COPD exacerbation Current Visit: Yes Status: Acute Assessment and plan: Presented with worsening cough, shortness of breath, productive sputum. His requiring increased oxygen supplementation. We will continue antibiotics, DuoNeb, Solu-Medrol as above. (4) Diabetes mellitus Current Visit: Yes Status: Acute Assessment and plan: Newly diagnosed Type 2 Diabetes Mellitus, [id number]-[id number], hyperglycemia glucose levels in 300s will increase insluin basal and preprandial dose. ADA diet, diabetes education Qualifiers: Diabetes mellitus type: type 2 Diabetes mellitus complication status: without complication Diabetes mellitus intermediate project manager insulin use: without fpc use Qualified Code(s): E11.9 - Type 2 diabetes mellitus without complications (5) Diastolic heart failure Current Visit: Yes Status: Acute Assessment and plan: Acute exacerbation of probable diastolic dysfunction, LVEF 55% patient does not have respiratory crackles or pedal edema Continue Lasix PO, Lisinopril, Lopressor strict I/Os, daily weight, cardiac telemetry Qualifiers: Heart failure chronicity: acute on chronic Qualified Code(s): I50.33 - Acute on chronic diastolic (congestive) heart failure (6) DVT prophylaxis Current Visit: Yes Status: Acute Assessment and plan: Heparin subcutaneous (7) Essential hypertension Current Visit: Yes Status: Chronic Assessment and plan: Essential hypertension, controlled Continue home dose of Norvasc, Lisinopril/HCTZ, Lopressor (8) Lung nodule seen on imaging study Current Visit: Yes Status: Acute Assessment and plan: New 1.9 cm spiculated nodule within the posterior right lung apex - possibly related to multifocal pneumonia Mild mediastinal lymphadenopathy Patient will need pulmonology follow-up and repeat CT will setup appointment - Subjective Interval history: Patient sitting up in chair, reports improved shortness of breath. Oxygen has been titrated down to 9 L. She denies chest pain, palpitations, dizziness, abdominal pain, lower extremity pain. Reports tolerating diet. Denies any difficulty urinating or with bowel movements. - Constitutional Vitals: Temp Pulse Resp BP Pulse Ox 97.9 F 62 20 123/67 91 10/06/17 11:59 10/06/17 11:59 10/06/17 11:59 10/06/17 11:59 10/06/17 11:59 General appearance: Present: cooperative, A&O X 3, morbidly obese, pleasant, no acute distress, answers questions appropriately - Other Additional findings: General: plesant without distress Heart: Regular rate and rhythm with no murmur Lungs: diminished, with wheezing b/l Abdomen: Soft nontender, nondistended positive bowel sounds Skin: warm and dry Extremities: Absent pedal edema, Neuro: alert oriented x3 Vascular: Pedal and radial pulses 2 out of 4 Internal Medicine: Result - Labs CBC & Chem 7: 10/06/17 04:52 10/06/17 04:52 Labs: Short CBC 10/06/17 Range/Units 04:52 WBC 10.2 (4.3-11.1) K/mcL Hgb 18.4 H (11.5-15.4) g/dL Hct 56.7 H (35.3-44.9) % Plt Count 184 (140-400) K/mcL Neutrophils # 9.1 H (1.6-8.9) K/mcL BMP 10/06/17 04:52 Sodium 141 Potassium 3.9 Chloride 99 Carbon Dioxide 37 H BUN 44 H Creatinine 1.04 Glucose 301 H Calcium 8.8 - ABG Interpretation ABG results: ABG ABG pH 7.40 pH Units (7.32-7.45) 10/02/17 17:12 ABG pCO2 58 mmHg (35-45) H 10/02/17 17:12 ABG pO2 74 mmHg (85-104) L 10/02/17 17:12 ABG O2 Saturation 94 % (95-98) L 10/02/17 17:12 PT/INR, D-dimer PT 12.3 Seconds (9.4-12.1) H 10/02/17 18:02 Consult Discharge Plan - Plan Referrals: Michel Giron MD [Primary Care Provider] - (WEB REQUEST SENT ON 10/03/17) <Baker-Dorian Stewart - Last Filed: 10/06/17 14:27> Date of Encounter: 10/06/17 - Assessment and plan (1) Acute respiratory failure with hypoxia Current Visit: Yes Status: Acute (2) Pneumonia Current Visit: Yes Status: Acute Qualifiers: Pneumonia type: due to unspecified organism Laterality: bilateral Lung location: unspecified part of lung Qualified Code(s): J18.9 - Pneumonia, unspecified organism (3) Diastolic heart failure Current Visit: Yes Status: Acute Qualifiers: Heart failure chronicity: acute on chronic Qualified Code(s): I50.33 - Acute on chronic diastolic (congestive) heart failure (4) Lung nodule seen on imaging study Current Visit: Yes Status: Acute (5) Diabetes mellitus Current Visit: Yes Status: Acute Qualifiers: Diabetes mellitus type: type 2 Diabetes mellitus complication status: without complication Diabetes mellitus fpc insulin use: without fpc use Qualified Code(s): E11.9 - Type 2 diabetes mellitus without complications (6) Essential hypertension Current Visit: Yes Status: Chronic (7) DVT prophylaxis Current Visit: Yes Status: Acute - Constitutional Vitals: Temp Pulse Resp BP Pulse Ox 97.9 F 62 20 123/67 91 10/06/17 11:59 10/06/17 11:59 10/06/17 11:59 10/06/17 11:59 10/06/17 11:59 Internal Medicine: Result - Labs CBC & Chem 7: 10/06/17 04:52 10/06/17 04:52 Labs: Short CBC 10/06/17 Range/Units 04:52 WBC 10.2 (4.3-11.1) K/mcL Hgb 18.4 H (11.5-15.4) g/dL Hct 56.7 H (35.3-44.9) % Plt Count 184 (140-400) K/mcL Neutrophils # 9.1 H (1.6-8.9) K/mcL BMP 10/06/17 04:52 Sodium 141 Potassium 3.9 Chloride 99 Carbon Dioxide 37 H BUN 44 H Creatinine 1.04 Glucose 301 H Calcium 8.8 - ABG Interpretation ABG results: ABG ABG pH 7.40 pH Units (7.32-7.45) 10/02/17 17:12 ABG pCO2 58 mmHg (35-45) H 10/02/17 17:12 ABG pO2 74 mmHg (85-104) L 10/02/17 17:12 ABG O2 Saturation 94 % (95-98) L 10/02/17 17:12 PT/INR, D-dimer PT 12.3 Seconds (9.4-12.1) H 10/02/17 18:02 - Attending Attestation I examined this patient and my medical decision-making was reviewed with the Resident Physician. I agree with the documented findings, disposition and treatment plan as described except to the extent set forth below. I have seen and examined the patient. Patient is alert. Denies chest pain. Complains of mild shortness of breath. She sitting up comfortably in chair. Oxygen has been titrated down to 9 L. No other acute events or complaints. Plan is to continue DuoNeb treatment and and buttocks. We will also continue IV Solu-Medrol. Patient will be on BiPAP at night. Heart S1-S2 positive. Lungs - bilateral good air entry with mild wheezing bilaterally. Abdomen - soft nontender nondistended. Extremities all pulses strong and regular, trace bilateral edema.
[2017-10-06] MEDS: Chloraseptic Spray 177 ML BOTTLE MM PRN (15:06)
[2017-10-06] MEDS: *HR* Heparin 5,000 UNIT/ML VIAL SQ SCH ×2 (15:06→21:01)
[2017-10-06 17:48] LABS: Mycoplasma pneumoniae IgG 0.07 U/L (<=0.09)
[2017-10-07] MEDS: methylPREDNISolone 125 MG/2 ML VIAL IVP SCH ×2 (01:17→08:42)
[2017-10-07] MEDS: Azithromycin 500 MG in D5% in Water 250 ML IVPB SCH (01:21)
[2017-10-07] MEDS: Ipratropium/Albuterol Neb 3 ML IH SCH ×6 (03:45→23:12)
[2017-10-07 06:24] LABS: BUN/Creatinine Ratio 41 (6-26); Blood Urea Nitrogen 43 mg/dL (8-23); Calcium 8.8 mg/dL (8.6-10.3); Carbon Dioxide 39 mEq/L (23-29); Chloride 95 mEq/L (98-107); Glucose 289 mg/dL (70-105); Osmolality,Calculated 309 (280-300); Potassium 3.5 mEq/L (3.5-5.1); Sodium 139 mEq/L (136-145); eGFR For African Americans > 60 (> 60); eGFR For Non-African Americans 53 (> 60)
[2017-10-07] MEDS: Chloraseptic Spray 177 ML BOTTLE MM PRN (06:49)
[2017-10-07] MEDS: *HR* Heparin 5,000 UNIT/ML VIAL SQ SCH ×2 (07:23→17:05)
[2017-10-07] MEDS: Budesonide/Formoterol 80/4.5 MDI IH SCH ×2 (07:45→20:13)
[2017-10-07 08:37] LABS: Hemoglobin 19.3 g/dL (11.5-15.4); Immature Platelets 7.4 % (1.1-6.1); Mean Corpuscular HGB Conc 33.1 g/dL (31.6-35.5); Mean Corpuscular Hemoglobin 30.1 pg (28.0-33.3); Mean Corpuscular Volume 90.8 fL (83.0-100.0); Mean Platelet Volume 10.7 fL (9.4-12.4); Red Blood Count 6.42 M/mcL (3.82-4.97); Red Cell Distribution Width 13.3 % (11.5-14.5)
[2017-10-07] MEDS: Insulin LISPRO 300 UNITS/3 ML VIAL SQ SCH ×7 (08:41→21:05)
[2017-10-07] MEDS: Insulin DETEMIR 100 UNIT/ML X5UNITS SQ SCH ×2 (08:42→21:04)
[2017-10-07] MEDS: Aspirin 325 MG TABLET PO SCH (08:42)
[2017-10-07] MEDS: Metoprolol 100 MG TABLET PO SCH ×2 (08:42→21:03)
[2017-10-07] MEDS: amLODIPine 5 MG TABLET PO SCH (08:42)
[2017-10-07] MEDS: cefTRIAXone 1,000 MG in Water for inj. (sterile) 10 ML IVP SCH (08:42)
[2017-10-07] MEDS: Lisinopril-HCTZ 20-12.5mg TABLET PO SCH ×2 (08:43→21:04)
[2017-10-07] MEDS: Furosemide 20 MG TABLET PO SCH ×3 (08:43→17:05)
[2017-10-07 08:49] LABS: Hematocrit 58.3 % (35.3-44.9)
--- NOTE | 2017-10-07 09:15 | Internal Med Progress Note ---
<Braulio Olivier - Last Filed: 10/07/17 09:12> Date of Encounter: 10/07/17 Time of Encounter: 08:05 - Assessment and plan (1) Acute respiratory failure with hypoxia Current Visit: Yes Status: Acute Assessment and plan: Acute hypoxic respiratory failure secondary to acute exacerbation of advanced COPD and multifocal pneumonia SOB continues to improve Continue DuoNebs, Solu-Medrol, Rocephin, Symbicort, Azithromycin O2 remains at 9LPM via NC, will consider going to intermittent BiPAP throughout the day Will check blood gas (2) Pneumonia Current Visit: Yes Status: Acute Assessment and plan: requiring 9L O2, stable from yesterday blood cultures, urine antigens, influenza screen negative Continue DuoNeb breathing treatment, IV Rocephin, IV Azithromycin, Tylenol PRN, O2 via NC WBC 9.9 < 10.2 < 12.2 < 14.1 Qualifiers: Pneumonia type: due to unspecified organism Laterality: bilateral Lung location: unspecified part of lung Qualified Code(s): J18.9 - Pneumonia, unspecified organism (3) COPD exacerbation Current Visit: Yes Status: Acute Assessment and plan: Improved since admission, but has plateaued We will continue antibiotics, DuoNeb, Solu-Medrol as above. (4) Hematochezia Current Visit: Yes Status: Acute Assessment and plan: Hgb increased from 18.4 to 19.3 overnight Will monitor (5) Diabetes mellitus Current Visit: Yes Status: Acute Assessment and plan: Newly diagnosed Type 2 Diabetes Mellitus, [id number], hyperglycemia glucose levels in 300s. Increased levemir to 40 units BID ADA diet, diabetes education Qualifiers: Diabetes mellitus type: type 2 Diabetes mellitus complication status: without complication Diabetes mellitus nursing home insulin use: without nursing home use Qualified Code(s): E11.9 - Type 2 diabetes mellitus without complications (6) Diastolic heart failure Current Visit: Yes Status: Acute Assessment and plan: Acute exacerbation of probable diastolic dysfunction, LVEF 55% patient does not have respiratory crackles or pedal edema Continue Lasix PO, Lisinopril, Lopressor strict I/Os, daily weight, cardiac telemetry Qualifiers: Heart failure chronicity: acute on chronic Qualified Code(s): I50.33 - Acute on chronic diastolic (congestive) heart failure (7) Essential hypertension Current Visit: Yes Status: Chronic Assessment and plan: Essential hypertension, controlled Continue home dose of Norvasc, Lisinopril/HCTZ, Lopressor (8) Lung nodule seen on imaging study Current Visit: Yes Status: Acute Assessment and plan: New 1.9 cm spiculated nodule within the posterior right lung apex - possibly related to multifocal pneumonia Mild mediastinal lymphadenopathy Patient will need pulmonology follow-up and repeat CT will setup appointment (9) DVT prophylaxis Current Visit: Yes Status: Acute Assessment and plan: Subq Heparin - Subjective Interval history: Patient reports hematochezia last night. Otherwise no new symptoms or significant changes. - Constitutional Vitals: Temp Pulse Resp BP Pulse Ox 97.7 F 61 16 128/68 84 10/07/17 06:48 10/07/17 06:48 10/07/17 06:48 10/07/17 06:48 10/07/17 09:03 General appearance: Present: cooperative, A&O X 3, morbidly obese, pleasant, no acute distress, answers questions appropriately - Head Head exam: Present: atraumatic, normal inspection, normocephalic - ENT ENT exam: Present: mucous membranes moist - Neck Neck exam general surgery: Present: trachea midline - Respiratory Respiratory exam: Present: wheezes (occasional). Absent: accessory muscle use, respiratory distress - Cardiovascular Cardiovascular exam: Present: RRR, +S1, +S2 - GI/Abdominal GI/Abdominal exam: Present: normal bowel sounds, soft, no peritoneal signs. Absent: tenderness - Neurological Exam Neurological exam: Present: alert, oriented X3 - Psychiatric Psychiatric exam: Present: normal affect, normal mood - Skin Skin exam: Present: dry, warm Internal Medicine: Result - Labs CBC & Chem 7: 10/07/17 08:28 10/07/17 05:27 Labs: Short CBC 10/07/17 Range/Units 08:28 WBC 9.9 (4.3-11.1) K/mcL Hgb 19.3 H (11.5-15.4) g/dL Hct 58.3 H (35.3-44.9) % Plt Count 192 (140-400) K/mcL BMP 10/07/17 05:27 Sodium 139 Potassium 3.5 Chloride 95 L Carbon Dioxide 39 H BUN 43 H Creatinine 1.05 Glucose 289 H Calcium 8.8 - ABG Interpretation ABG results: ABG ABG pH 7.40 pH Units (7.32-7.45) 10/02/17 17:12 ABG pCO2 58 mmHg (35-45) H 10/02/17 17:12 ABG pO2 74 mmHg (85-104) L 10/02/17 17:12 ABG O2 Saturation 94 % (95-98) L 10/02/17 17:12 PT/INR, D-dimer PT 12.3 Seconds (9.4-12.1) H 10/02/17 18:02 Consult Discharge Plan - Plan Referrals: Michel Giron MD [Primary Care Provider] - (WEB REQUEST SENT ON 10/03/17) <Samuel-Dorian Stewart - Last Filed: 10/07/17 10:33> Date of Encounter: 10/07/17 - Assessment and plan (1) Acute respiratory failure with hypoxia Current Visit: Yes Status: Acute (2) Pneumonia Current Visit: Yes Status: Acute Qualifiers: Pneumonia type: due to unspecified organism Laterality: bilateral Lung location: unspecified part of lung Qualified Code(s): J18.9 - Pneumonia, unspecified organism (3) Diastolic heart failure Current Visit: Yes Status: Acute Qualifiers: Heart failure chronicity: acute on chronic Qualified Code(s): I50.33 - Acute on chronic diastolic (congestive) heart failure (4) Lung nodule seen on imaging study Current Visit: Yes Status: Acute (5) Diabetes mellitus Current Visit: Yes Status: Acute Qualifiers: Diabetes mellitus type: type 2 Diabetes mellitus complication status: without complication Diabetes mellitus nursing home insulin use: without nursing home use Qualified Code(s): E11.9 - Type 2 diabetes mellitus without complications (6) Essential hypertension Current Visit: Yes Status: Chronic (7) DVT prophylaxis Current Visit: Yes Status: Acute - Constitutional Vitals: Temp Pulse Resp BP Pulse Ox 97.7 F 61 16 128/68 84 10/07/17 06:48 10/07/17 06:48 10/07/17 06:48 10/07/17 06:48 10/07/17 09:03 Internal Medicine: Result - Labs CBC & Chem 7: 10/07/17 08:28 10/07/17 05:27 Labs: Short CBC 10/07/17 Range/Units 08:28 WBC 9.9 (4.3-11.1) K/mcL Hgb 19.3 H (11.5-15.4) g/dL Hct 58.3 H (35.3-44.9) % Plt Count 192 (140-400) K/mcL [facility] 10/07/17 05:27 Sodium 139 Potassium 3.5 Chloride 95 L Carbon Dioxide 39 H BUN 43 H Creatinine 1.05 Glucose 289 H Calcium 8.8 - ABG Interpretation ABG results: ABG ABG pH 7.40 pH Units (7.32-7.45) 10/02/17 17:12 ABG pCO2 58 mmHg (35-45) H 10/02/17 17:12 ABG pO2 74 mmHg (85-104) L 10/02/17 17:12 ABG O2 Saturation 94 % (95-98) L 10/02/17 17:12 PT/INR, D-dimer PT 12.3 Seconds (9.4-12.1) H 10/02/17 18:02 - Attending Attestation I examined this patient and my medical decision-making was reviewed with the Resident Physician. I agree with the documented findings, disposition and treatment plan as described except to the extent set forth below. I have seen and examined the patient. Patient is awake and alert. Denies chest pain. Complains of mild shortness of breath, which is worse on exertion. She is currently on 9 L O2 via nasal cannula. We will need to continue BiPAP intermittently during the day and continuously at night. Patient is also on IV Solu-Medrol and DuoNeb breathing treatment. Her O2 sat has been around 88-94%. At this point she still has very high oxygen requirements. We will consult pulmonology for persistent hypoxia. ABG is pending at this time. Patient also had bright red blood per rectum last night and early this morning. H&H is currently stable. No fever. Hemodynamically stable. Patient does not have any other acute complaints and no other acute events. Patient and family have been explained about her condition and plan of care. They understood and agreed. No unanswered questions. Heart - S1 and S2 positive. Lungs bilateral good air entry, mild wheezing bilaterally. Abdomen - soft nontender. Extremities - all pulses strong and regular, no edema. Neuro - awake and alert, no deficits.
--- NOTE | 2017-10-07 11:30 | Pulmonology Consult Note ---
Date of Encounter: 10/07/17 Time of Encounter: 11:00 Assessment and Plan (1) Acute and chronic respiratory failure with hypercapnia Current Visit: Yes Status: Acute Patient with underlying obstructive lung disease and evidence of hypoxia and hypercapnia I believe worsening over dyspnea and hypoxia is multifactorial from COPD exacerbation as well as multifocal pneumonia. Noninvasive ventilation is appropriate treatment as well as treatment of COPD. Patient baseline suspect is worse than she is reporting and she will need outpatient workup when she is discharged. Plan of care discussed with the primary team and thank you for the consultation. (2) COPD exacerbation Current Visit: Yes Status: Acute Patient is on appropriate bronchodilators and if no complications with hyperglycemia, we will recommend to increase systemic steroid. (3) Pneumonia Current Visit: Yes Status: Acute Reviewed CT chest and evidence of multifocal pneumonia and patient is on broad- spectrum antibiotics. She has one area which is most likely in my opinion is related to her pneumonia, however with aggressive actors malignancies cannot be ruled out anterior lymphadenopathy most likely reactive. After she completed a course of antibiotic then she will need follow-up images in 2-3 months to ensure resolution of the pneumonia, otherwise she will need biopsy. This was discussed and explained to the patient and her family at the bedside. Qualifiers: Pneumonia type: due to unspecified organism Laterality: bilateral Lung location: unspecified part of lung Qualified Code(s): J18.9 - Pneumonia, unspecified organism (4) Suspected sleep apnea Current Visit: Yes Status: Suspected I believe patient has underlying sleep disorder breathing with her body habitus and workup as outpatient is recommended. (5) Acute and chronic respiratory failure with hypoxia Current Visit: Yes Status: Acute NIV History of Present Illness Consult date: 10/07/17 Requesting physician: Dorian Monroe Reason for consult: COPD, pneumonia Chief complaint: Dyspnea History of present illness: This is a pleasant 62-year-old female poor historian and she is on BiPAP at this time which makes it difficult to obtain history from patient and family at the bedside giving some of the history. 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 He also uses an inhaler, but she does not know the name. Patient was having worsening of dyspnea with subjective fever and productive cough with wheezing as well as edema of lower extremities and she came to the hospital where she was found to be hypoxic. CT chest was done with evidence of multifocal pneumonia and questionable especially she has area and mediastinal adenopathy. Patient clinically is feeling better. Family history is not significant for any pulmonary diseases. Denies any exposure to people with tuberculosis and no significant occupational risk factors. Patient is a former smoker. Past Med Surg Social Fam HX - Past Medical History Medical history: CHF, COPD, hypertension Psychiatric history: no psych history - Social History Smoking Status: Former smoker Smokeless Tobacco Status: No Alcohol use: none Drug use: none - Family History Mother Hx Family Cancer: Yes Medications and Allergies Albuterol Sulfate [Ventolin Hfa] 2 puff IH Q4H PRN 10/02/17 [History] Aspirin 325 mg PO DAILY 10/02/17 [History] Fluticasone/Salmeterol [Advair 250-50 Diskus] 1 each IH BID 10/02/17 [History] Furosemide [Lasix] 20 mg PO TID 10/02/17 [History] Ipratropium/Albuterol Neb [Duoneb] 3 ml IH Q6H PRN 10/02/17 [History] Lisinopril/Hydrochlorothiazide [Zestoretic 20-12.5 mg Tablet] 1 each PO BID [History] Lovastatin [Lovastatin] 40 mg PO HS 10/02/17 [History] Metoprolol [Lopressor] 100 mg PO BID 10/02/17 [History] Oxygen 2 l NS AD 10/02/17 [History] Potassium Chloride [Klor-Con 10] 5 meq PO DAILY 10/02/17 [History] amLODIPine [Norvasc] 5 mg PO DAILY 10/02/17 [History] 3 Allergy/AdvReac Type Severity Reaction Status Date / Time Penicillins [PCN] Allergy Mild Rash Verified 01/01/16 21:52 All Systems: A 10-system review of systems was performed and is negative for pertinent findings except as documented above in the HPI. Physical Examination Vital Signs: Vital Signs, Last 4 Hours Temp Pulse Resp BP Pulse Ox 10/07/17 10:42 97.6 F 61 18 101/64 98 10/07/17 09:03 84 Patient on BiPAP and FiO2 60% General appearance: no acute distress Eyes: nonicteric ENT: oropharynx dry Mallampati (class): 4 Neck: supple, no lymphadenopathy Effort: mildly labored Inspection: other (Obese) Auscultation: bilateral: diminished breath sounds Percussion: bilateral: not dull Cardiovascular: regular rate and rhythm Gastrointestinal: normoactive bowel sounds, non-distended Extremities: cyanosis, edema normal mental status, non-focal exam mood appropriate Results - Laboratory Findings CBC and BMP: 10/07/17 08:28 10/07/17 05:27 ABG ABG pH 7.40 pH Units (7.32-7.45) 10/02/17 17:12 ABG pCO2 58 mmHg (35-45) H 10/02/17 17:12 ABG pO2 74 mmHg (85-104) L 10/02/17 17:12 ABG O2 Saturation 94 % (95-98) L 10/02/17 17:12 PT/INR, D-dimer PT 12.3 Seconds (9.4-12.1) H 10/02/17 18:02 Abnormal lab findings: Abnormal lab results RBC 6.42 M/mcL (3.82-4.97) H 10/07/17 08:28 Hgb 19.3 g/dL (11.5-15.4) H 10/07/17 08:28 Hct 58.3 % (35.3-44.9) H 10/07/17 08:28 Neutrophils # 9.1 K/mcL (1.6-8.9) H 10/06/17 04:52 Immature Plt Fraction 7.4 % (1.1-6.1) H 10/07/17 08:28 PT 12.3 Seconds (9.4-12.1) H 10/02/17 18:02 ABG pCO2 58 mmHg (35-45) H 10/02/17 17:12 ABG pO2 74 mmHg (85-104) L 10/02/17 17:12 ABG HCO3 36 mEq/L (21-27) H 10/02/17 17:12 ABG Total CO2 37 mEq/L (20-26) H 10/02/17 17:12 ABG O2 Saturation 94 % (95-98) L 10/02/17 17:12 ABG Base Excess 8 mEq/L (-2 to 3) H 10/02/17 17:12 Chloride 95 mEq/L (98-107) L 10/07/17 05:27 Carbon Dioxide 39 mEq/L (23-29) H 10/07/17 05:27 BUN 43 mg/dL (8-23) H 10/07/17 05:27 Est GFR (Non-Af Amer) 53 (> 60) L 10/07/17 05:27 BUN/Creatinine Ratio 41 (6-26) H 10/07/17 05:27 Glucose 289 mg/dL (70-105) H 10/07/17 05:27 POC Glucose 320 (58-89) H 10/06/17 19:36 Hemoglobin A1c 8.9 % (-5.6) H 10/03/17 03:52 Calculated Osmolality 309 (280-300) H 10/07/17 05:27 Direct Bilirubin 0.3 mg/dL (0.0-0.2) H 10/02/17 16:55 B-Natriuretic Peptide 238 pg/mL (Less than 100) H 10/03/17 03:52 Ur Specific [place] > 1.030 (1.010-1.025) H 10/02/17 20:45 Urine Glucose (UA) 250 mg/dL (Normal) H 10/02/17 20:45 - Diagnostic Findings CT scan - chest: report reviewed, image reviewed - Clinical Findings Intake & Output: Intake & Output 10/06/17 10/07/17 10/07/17 23:59 07:59 15:59 Intake Total 250 / 250 Balance 250 / 250 Weight 103.3 kg Consult Discharge Plan - Plan Referrals: Michel Giron MD [Primary Care Provider] - (WEB REQUEST SENT ON 10/03/17)
[2017-10-07] MEDS: MethylPREDNISolone 40 MG/ML VIAL IVP SCH (17:06)
[2017-10-08] MEDS: MethylPREDNISolone 40 MG/ML VIAL IVP SCH ×4 (00:14→23:32)
[2017-10-08] MEDS: Azithromycin 500 MG in D5% in Water 250 ML IVPB SCH (02:16)
[2017-10-08] MEDS: Ipratropium/Albuterol Neb 3 ML IH SCH ×6 (04:21→23:28)
[2017-10-08] MEDS: *HR* Heparin 5,000 UNIT/ML VIAL SQ SCH ×2 (05:05→17:10)
[2017-10-08 05:35] LABS: Basophils # 0.1 K/mcL (0.0-0.2); Basophils % 0.4 %; Hemoglobin 20.1 g/dL (11.5-15.4); Lymphocytes # 0.8 K/mcL (0.6-4.6); Mean Corpuscular HGB Conc 32.2 g/dL (31.6-35.5); Mean Corpuscular Hemoglobin 29.6 pg (28.0-33.3); Mean Platelet Volume 11.3 fL (9.4-12.4); Monocytes # 0.3 K/mcL (0.0-1.3); Monocytes % 2.5 %; Neutrophils # 11.3 K/mcL (1.6-8.9); Platelet Count 207 K/mcL (140-400); Red Blood Count 6.78 M/mcL (3.82-4.97); Red Cell Distribution Width 13.7 % (11.5-14.5); Segmented Neutrophils % 90.1 %
[2017-10-08 05:37] LABS: Hematocrit 62.4 % (35.3-44.9)
[2017-10-08 07:14] LABS: BUN/Creatinine Ratio 46 (6-26); Blood Urea Nitrogen 46 mg/dL (8-23); Calcium 8.5 mg/dL (8.6-10.3); Carbon Dioxide 40 mEq/L (23-29); Chloride 100 mEq/L (98-107); Glucose 166 mg/dL (70-105); Osmolality,Calculated 310 (280-300); Potassium 3.7 mEq/L (3.5-5.1); Sodium 142 mEq/L (136-145); eGFR For African Americans > 60 (> 60); eGFR For Non-African Americans 57 (> 60)
[2017-10-08] MEDS: Budesonide/Formoterol 80/4.5 MDI IH SCH ×2 (07:42→20:25)
--- NOTE | 2017-10-08 08:17 | Pulmonology Progress Note ---
Date of Encounter: 10/08/17 Time of Encounter: 08:15 Assessment and Plan (1) Acute and chronic respiratory failure with hypercapnia Current Visit: Yes Status: Acute This is secondary to pneumonia with COPD exacerbation likely complicated by underlying heart failure with preserved ejection fraction and obesity hypoventilation syndrome/undiagnosed sleep-disordered breathing. Continue to wean FiO2 to keep saturation around 89-92% Out of bed to chair incentive spirometry is also helpful BiPAP as needed for work of breathing or for hypercarbia (2) Pulmonary hypertension Current Visit: Yes Status: Acute This is a combination of WHO to and group 3 diseases (HFpEF and COPD/OSAS). (3) COPD exacerbation Current Visit: Yes Status: Acute Continue steroids and bronchodilators Cont ICS/LABA She remained outpatient pulmonary follow-up for evaluation of her obstructive lung disease (4) Diastolic heart failure Current Visit: Yes Status: Acute Agree with continued diuresis she has worsening metabolic alkalosis which will need aggressive replacement of potassium and magnesium and continues to elevate without rise in creatinine could consider Diamox for 24-48 hours Qualifiers: Heart failure chronicity: acute on chronic Qualified Code(s): I50.33 - Acute on chronic diastolic (congestive) heart failure (5) Pneumonia Current Visit: Yes Status: Acute She is being treated for TB acquired pneumonia can likely de-escalate antimicrobial coverage to respiratory fluoroquinolone or Augmentin to complete 7 day course. She will need to have a repeat CT scan in 4-6 weeks of the time of discharge for follow-up in pulmonary clinic for documentation of resolution of these infiltrates as she is at high risk for lung cancer Qualifiers: Pneumonia type: due to unspecified organism Laterality: bilateral Lung location: unspecified part of lung Qualified Code(s): J18.9 - Pneumonia, unspecified organism (6) Suspected sleep apnea Current Visit: Yes Status: Suspected She will need outpatient polysomnogram She can be qualified for BiPAP at time of discharge Subjective Principal diagnosis: Pneumonia Interval history: No acute events overnight has been wearing BiPAP sporadically at night she has difficulty wearing it as she has to wake up frequently to go to the restroom etc. She says her breathing is little bit better today than it was yesterday Objective PUL Vital signs: Last Vital Signs Temp 97.8 F 10/08/17 06:54 Pulse 54 10/08/17 06:54 Resp 18 10/08/17 07:45 BP 125/49 10/08/17 06:54 Pulse Ox 95 10/08/17 07:45 General appearance: no acute distress Effort: mildly labored Auscultation: bilateral: diminished breath sounds, rales Cardiovascular: regular rate and rhythm Gastrointestinal: normoactive bowel sounds, soft, non-tender Integumentary: normal Extremities: edema normal mental status, non-focal exam mood appropriate Results - Laboratory Findings CBC and BMP: 10/08/17 05:00 10/08/17 06:24 ABG ABG pH 7.40 pH Units (7.32-7.45) 10/02/17 17:12 ABG pCO2 58 mmHg (35-45) H 10/02/17 17:12 ABG pO2 74 mmHg (85-104) L 10/02/17 17:12 ABG O2 Saturation 94 % (95-98) L 10/02/17 17:12 PT/INR, D-dimer PT 12.3 Seconds (9.4-12.1) H 10/02/17 18:02 Abnormal lab findings: Abnormal lab results WBC 12.6 K/mcL (4.3-11.1) H 10/08/17 05:00 RBC 6.78 M/mcL (3.82-4.97) H 10/08/17 05:00 Hgb 20.1 g/dL (11.5-15.4) H 10/08/17 05:00 Hct 62.4 % (35.3-44.9) H 10/08/17 05:00 Neutrophils # 11.3 K/mcL (1.6-8.9) H 10/08/17 05:00 Immature Plt Fraction 7.4 % (1.1-6.1) H 10/07/17 08:28 PT 12.3 Seconds (9.4-12.1) H 10/02/17 18:02 ABG pCO2 58 mmHg (35-45) H 10/02/17 17:12 ABG pO2 74 mmHg (85-104) L 10/02/17 17:12 ABG HCO3 36 mEq/L (21-27) H 10/02/17 17:12 ABG Total CO2 37 mEq/L (20-26) H 10/02/17 17:12 ABG O2 Saturation 94 % (95-98) L 10/02/17 17:12 ABG Base Excess 8 mEq/L (-2 to 3) H 10/02/17 17:12 Carbon Dioxide 40 mEq/L (23-29) H* 10/08/17 06:24 BUN 46 mg/dL (8-23) H 10/08/17 06:24 Est GFR (Non-Af Amer) 57 (> 60) L 10/08/17 06:24 BUN/Creatinine Ratio 46 (6-26) H 10/08/17 06:24 Glucose 166 mg/dL (70-105) H 10/08/17 06:24 POC Glucose 283 (58-89) H 10/07/17 16:08 Hemoglobin A1c 8.9 % (-5.6) H 10/03/17 03:52 Calculated Osmolality 310 (280-300) H 10/08/17 06:24 Calcium 8.5 mg/dL (8.6-10.3) L 10/08/17 06:24 Direct Bilirubin 0.3 mg/dL (0.0-0.2) H 10/02/17 16:55 B-Natriuretic Peptide 238 pg/mL (Less than 100) H 10/03/17 03:52 Ur Specific [place] > 1.030 (1.010-1.025) H 10/02/17 20:45 Urine Glucose (UA) 250 mg/dL (Normal) H 10/02/17 20:45 - Clinical Findings Intake & Output: Intake & Output 10/07/17 10/08/17 10/08/17 23:59 07:59 15:59 Intake Total 360 / 360 Output Total 200 / 200 Balance 360 / 360 -200 / -200 Weight 104.5 kg Consult Discharge Plan - Plan Referrals: Michel Giron MD [Primary Care Provider] - (WEB REQUEST SENT ON 10/03/17)
[2017-10-08] MEDS: Insulin LISPRO 300 UNITS/3 ML VIAL SQ SCH ×7 (09:19→22:12)
[2017-10-08] MEDS: Metoprolol 100 MG TABLET PO SCH ×2 (09:31→20:29)
[2017-10-08] MEDS: amLODIPine 5 MG TABLET PO SCH (09:31)
[2017-10-08] MEDS: Furosemide 20 MG TABLET PO SCH ×3 (09:31→17:12)
[2017-10-08] MEDS: cefTRIAXone 1,000 MG in Water for inj. (sterile) 10 ML IVP SCH (09:31)
[2017-10-08] MEDS: Lisinopril-HCTZ 20-12.5mg TABLET PO SCH ×2 (09:31→20:29)
[2017-10-08] MEDS: Aspirin 325 MG TABLET PO SCH (09:31)
[2017-10-08] MEDS: Insulin DETEMIR 100 UNIT/ML X5UNITS SQ SCH ×2 (09:31→22:31)
--- NOTE | 2017-10-08 14:59 | Electrocardiograph Report ---
[address] [address] Test Date: 2017-10-04 Pat Name: Michelle Kumar Department: 112 Room: 2A42 Gender: F [employer]: : 1955 Requested By: Dorian Monroe Order Number: [id number] Reading MD: Td Everett MD Measurements Intervals [place] Rate: 75 P: 47 MA: 158 QRS: 244 QRSD: 186 T: 114 QT: 421 QTc: 449 Interpretive Statements SINUS RHYTHM WITH FREQUENT VENTRICULAR PREMATURE COMPLEXES IN TRIGEMINAL PATTERN MARKED RIGHT AXIS DEVIATION INTRAVENTRICULAR CONDUCTION DELAY, ATYPICAL LBBB LEFT ATRIAL ABNORMALITY Electronically Signed On 10-08-2017 14:57:28 EST by Td Everett MD
--- NOTE | 2017-10-08 16:49 | Internal Med Progress Note ---
Date of Encounter: 10/08/17 Time of Encounter: 10:40 - Assessment and plan (1) Acute and chronic respiratory failure with hypoxia Current Visit: Yes Status: Acute Assessment and plan: Multifactorial. Continue treating underlying conditions. Continue BiPAP use. Wean FiO2 as tolerated. (2) Acute and chronic respiratory failure with hypercapnia Current Visit: Yes Status: Acute Assessment and plan: Continue BiPAP use. Will evaluate for home BiPAP with oxygen saturation qualification overnight. decontamination worker notified. (3) COPD exacerbation Current Visit: Yes Status: Acute Assessment and plan: Continue current management with steroids and bronchodilators. Continue Symbicort. Continues to have high O2 supplementation requirements. Pulmonology following. Expect slow and delayed progress. (4) Diabetes mellitus Current Visit: Yes Status: Chronic Assessment and plan: Blood sugars are much improved today. Continue current sliding scale. 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 Pedal edema has improved. We will prescribe Diamox and assess response. Qualifiers: Heart failure chronicity: acute on chronic Qualified Code(s): I50.33 - Acute on chronic diastolic (congestive) heart failure (6) DVT prophylaxis Current Visit: Yes Status: Acute Assessment and plan: On subcutaneous heparin (7) Essential hypertension Current Visit: Yes Status: Chronic Assessment and plan: Well-controlled. (8) Lung nodule seen on imaging study Current Visit: Yes Status: Acute Assessment and plan: Evaluated by pulmonology. Recommend treating underlying pneumonia and repeating CT of the chest in 2-3 months. (9) Pneumonia Current Visit: Yes Status: Acute Assessment and plan: Being treated with ceftriaxone and azithromycin. Will complete 7 day antibiotic course. Qualifiers: Pneumonia type: due to unspecified organism Laterality: bilateral Lung location: unspecified part of lung Qualified Code(s): J18.9 - Pneumonia, unspecified organism - Subjective Interval history: Patient remains dyspneic. Does have cough. No chest pain. No fever or chills overnight. Has been using BiPAP off and on throughout the day and night yesterday. No further episodes of hematochezia. - Constitutional Vitals: Temp Pulse Resp BP Pulse Ox 97.5 F L 62 20 92/54 94 10/08/17 15:22 10/08/17 15:22 10/08/17 15:22 10/08/17 15:22 10/08/17 15:22 General appearance: Present: cooperative, mild distress, A&O X 3, morbidly obese , pleasant, answers questions appropriately - Respiratory Respiratory exam: Present: accessory muscle use, decreased breath sounds, prolonged expiratory phase, respiratory distress, wheezes. Absent: rales, rhonchi - Cardiovascular Cardiovascular exam: Present: RRR, +S1, +S2. Absent: diastolic murmur, gallop, rubs, systolic murmur - GI/Abdominal GI/Abdominal exam: Present: normal bowel sounds, soft, no peritoneal signs. Absent: distended, tenderness - Extremities Exam Extremities exam: Present: warm, radial pulses palpable and symmetrical. Absent : calf tenderness, cyanotic - Neurological Exam Neurological exam: Present: alert, CN II-XII intact, oriented X3, no focal deficits. Absent: facial droop, speech deficit Internal Medicine: Result - Labs CBC & Chem 7: 10/08/17 05:00 10/08/17 06:24 Labs: Short CBC 10/08/17 Range/Units 05:00 WBC 12.6 H (4.3-11.1) K/mcL Hgb 20.1 H (11.5-15.4) g/dL Hct 62.4 H (35.3-44.9) % Plt Count 207 (140-400) K/mcL Neutrophils # 11.3 H (1.6-8.9) K/mcL BMP 10/08/17 06:24 Sodium 142 Potassium 3.7 Chloride 100 Carbon Dioxide 40 H* BUN 46 H Creatinine 1.00 Glucose 166 H Calcium 8.5 L - ABG Interpretation ABG results: ABG ABG pH 7.40 pH Units (7.32-7.45) 10/02/17 17:12 ABG pCO2 58 mmHg (35-45) H 10/02/17 17:12 ABG pO2 74 mmHg (85-104) L 10/02/17 17:12 ABG O2 Saturation 94 % (95-98) L 10/02/17 17:12 PT/INR, D-dimer PT 12.3 Seconds (9.4-12.1) H 10/02/17 18:02 Consult Discharge Plan - Plan Referrals: Michel Giron MD [Primary Care Provider] - (WEB REQUEST SENT ON 10/03/17)
[2017-10-08] MEDS ORDERED: acetaZOLAMIDE 250 MG TABLET PO ONE (17:55)
[2017-10-09] MEDS: Azithromycin 500 MG in D5% in Water 250 ML IVPB SCH (02:46)
[2017-10-09] MEDS: Ipratropium/Albuterol Neb 3 ML IH SCH ×6 (04:57→22:56)
[2017-10-09 05:06] LABS: ABG Base Excess 9 mEq/L (-2 to 3); ABG HCO3 39 mEq/L (21-27); ABG Oxygen Saturation 72 % (95-98); ABG PCO2 65 mmHg (35-45); ABG PH 7.38 pH Units (7.32-7.45); ABG PO2 40 mmHg (85-104); ABG TCO2 41 mEq/L (20-26); Blood Gas Modality NCPAP
[2017-10-09] MEDS: *HR* Heparin 5,000 UNIT/ML VIAL SQ SCH ×2 (06:00→17:12)
[2017-10-09 07:30] LABS: BUN/Creatinine Ratio 53 (6-26); Blood Urea Nitrogen 49 mg/dL (8-23); Calcium 8.7 mg/dL (8.6-10.3); Carbon Dioxide 36 mEq/L (23-29); Chloride 101 mEq/L (98-107); Glucose 122 mg/dL (70-105); Magnesium 2.5 mg/dL (1.6-2.6); Osmolality,Calculated 304 (280-300); Phosphorous 4.4 mg/dL (2.7-4.5); Potassium 4.7 mEq/L (3.5-5.1); Sodium 140 mEq/L (136-145); eGFR For African Americans > 60 (> 60); eGFR For Non-African Americans > 60 (> 60)
[2017-10-09] MEDS: Budesonide/Formoterol 80/4.5 MDI IH SCH ×2 (07:48→19:55)
[2017-10-09] MEDS: Insulin LISPRO 300 UNITS/3 ML VIAL SQ SCH ×7 (08:15→22:56)
[2017-10-09] MEDS: MethylPREDNISolone 40 MG/ML VIAL IVP SCH ×2 (08:16→19:38)
[2017-10-09] MEDS: cefTRIAXone 1,000 MG in Water for inj. (sterile) 10 ML IVP SCH (08:16)
[2017-10-09] MEDS: Furosemide 20 MG TABLET PO SCH ×3 (08:17→17:12)
[2017-10-09] MEDS: Metoprolol 100 MG TABLET PO SCH ×2 (08:17→20:00)
[2017-10-09] MEDS: Aspirin 325 MG TABLET PO SCH (08:17)
[2017-10-09] MEDS: amLODIPine 5 MG TABLET PO SCH (08:17)
[2017-10-09] MEDS: Lisinopril-HCTZ 20-12.5mg TABLET PO SCH ×2 (08:17→20:00)
[2017-10-09] MEDS: Insulin DETEMIR 100 UNIT/ML X5UNITS SQ SCH ×2 (10:13→20:01)
--- NOTE | 2017-10-09 16:59 | Internal Med Progress Note ---
Date of Encounter: 10/09/17 Time of Encounter: 09:50 - Assessment and plan (1) Acute and chronic respiratory failure with hypoxia Current Visit: Yes Status: Acute Assessment and plan: Remains hypoxic and requiring high flow nasal cannula. We will continue to wean FiO2 as tolerated. Keep sats greater than 88%. Monitor vital signs closely. ABG shows hypoxia with compensated respiratory acidosis. Continue to treat underlying causes. High risk for complications. (2) Acute and chronic respiratory failure with hypercapnia Current Visit: Yes Status: Acute Assessment and plan: We will reevaluate for home BiPAP been able to wean down FiO2 to at least 5 L nasal cannula. (3) COPD exacerbation Current Visit: Yes Status: Acute Assessment and plan: Continue current management with systemic steroids and bronchodilators. Will change intravenous steroids to oral. (4) Diabetes mellitus Current Visit: Yes Status: Chronic Assessment and plan: Fairly controlled. Continue current insulin regimen. Diabetic diet. Monitor blood sugars. Qualifiers: Diabetes mellitus type: type 2 Diabetes mellitus complication status: without complication Diabetes mellitus manager long term care insulin use: without retirement use Qualified Code(s): E11.9 - Type 2 diabetes mellitus without complications (5) Diastolic heart failure Current Visit: Yes Status: Acute Assessment and plan: On oral Lasix. Renal function remains stable. Patient does have metabolic alkalosis. Responded well to Diamox. Qualifiers: Heart failure chronicity: acute on chronic Qualified Code(s): I50.33 - Acute on chronic diastolic (congestive) heart failure (6) DVT prophylaxis Current Visit: Yes Status: Acute Assessment and plan: On subcutaneous heparin (7) Essential hypertension Current Visit: Yes Status: Chronic Assessment and plan: Blood pressure is well controlled at this time. (8) Lung nodule seen on imaging study Current Visit: Yes Status: Acute Assessment and plan: Follow-up outpatient with repeat CT scan in 3 months (9) Pneumonia Current Visit: Yes Status: Acute Assessment and plan: Patient has completed treatment for this with antibiotics. Clinically doing better overall. Qualifiers: Pneumonia type: due to unspecified organism Laterality: bilateral Lung location: unspecified part of lung Qualified Code(s): J18.9 - Pneumonia, unspecified organism - Subjective Interval history: Patient continues to be dyspneic but able to perform her activities of daily living. Currently on 9 L O2 supplementation. Saturating between 88 and 95%. Denies any chest pain or palpitations. Does have cough. Able to speak in complete sentences. - Constitutional Vitals: Temp Pulse Resp BP Pulse Ox 97.8 F 62 16 117/71 88 10/09/17 15:36 10/09/17 15:36 10/09/17 16:02 10/09/17 15:36 10/09/17 16:02 General appearance: Present: cooperative, mild distress, A&O X 3, morbidly obese , pleasant, answers questions appropriately - Neck Neck exam general surgery: Present: supple, trachea midline. Absent: lymphadenopathy - Respiratory Respiratory exam: Present: prolonged expiratory phase, respiratory distress, rhonchi, wheezes. Absent: accessory muscle use, rales - Cardiovascular Cardiovascular exam: Present: RRR, +S1, +S2. Absent: diastolic murmur, gallop, rubs, systolic murmur - Extremities Exam Extremities exam: Present: warm, radial pulses palpable and symmetrical. Absent : calf tenderness, cyanotic, pedal edema - Neurological Exam Neurological exam: Present: alert, oriented X3, no focal deficits. Absent: facial droop, speech deficit - Skin Skin exam: Present: dry, intact Internal Medicine: Result - Labs CBC & Chem 7: 10/08/17 05:00 10/09/17 06:35 Labs: BMP 10/09/17 06:35 Sodium 140 Potassium 4.7 Chloride 101 Carbon Dioxide 36 H BUN 49 H Creatinine 0.93 Glucose 122 H Calcium 8.7 - ABG Interpretation ABG results: ABG ABG pH 7.38 pH Units (7.32-7.45) 10/09/17 05:01 ABG pCO2 65 mmHg (35-45) H 10/09/17 05:01 ABG pO2 40 mmHg (85-104) L* 10/09/17 05:01 ABG O2 Saturation 72 % (95-98) L 10/09/17 05:01 PT/INR, D-dimer PT 12.3 Seconds (9.4-12.1) H 10/02/17 18:02 Consult Discharge Plan - Plan Referrals: Michel Giron MD [Primary Care Provider] - (WEB REQUEST SENT ON 10/03/17)
[2017-10-10] MEDS: Ipratropium/Albuterol Neb 3 ML IH SCH ×6 (04:10→23:28)
[2017-10-10] MEDS: *HR* Heparin 5,000 UNIT/ML VIAL SQ SCH ×2 (06:04→17:40)
[2017-10-10] MEDS: Budesonide/Formoterol 80/4.5 MDI IH SCH ×2 (07:44→19:47)
[2017-10-10] MEDS: Insulin LISPRO 300 UNITS/3 ML VIAL SQ SCH ×5 (08:46→20:47)
[2017-10-10] MEDS: Aspirin 325 MG TABLET PO SCH (08:51)
[2017-10-10] MEDS: Lisinopril-HCTZ 20-12.5mg TABLET PO SCH ×2 (08:51→20:46)
[2017-10-10] MEDS: Metoprolol 100 MG TABLET PO SCH ×2 (08:51→20:46)
[2017-10-10] MEDS: predniSONE 20 MG TABLET PO SCH (08:51)
[2017-10-10] MEDS: Furosemide 20 MG TABLET PO SCH ×3 (08:52→17:37)
[2017-10-10] MEDS: amLODIPine 5 MG TABLET PO SCH (08:52)
[2017-10-10] MEDS: Insulin DETEMIR 100 UNIT/ML X5UNITS SQ SCH (08:52)
--- NOTE | 2017-10-10 13:33 | Discharge Summary ---
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 mellitus terminal carman insulin use: without residential use Qualified Code(s): E11.9 - Type 2 diabetes mellitus without complications (5) Diastolic heart failure Priority: Secondary Status: Acute Qualifiers: Heart failure chronicity: acute on chronic Qualified Code(s): I50.33 - Acute on chronic diastolic (congestive) heart failure (6) DVT prophylaxis Priority: Secondary Status: Acute (7) Essential hypertension Priority: Secondary Status: Chronic (8) Lung nodule seen on imaging study Priority: Secondary Status: Acute (9) Pneumonia Priority: Secondary Status: Acute Qualifiers: Pneumonia type: due to unspecified organism Laterality: bilateral Lung location: unspecified part of lung Qualified Code(s): J18.9 - Pneumonia, unspecified organism - Discharge Medications Prescriptions: metFORMIN [Glucophage] 500 mg PO BIDWM #60 tablet predniSONE [PredniSONE] 10 mg PO DAILY 12 Days tablet Home Medications: Albuterol Sulfate [Ventolin Hfa] 2 puff IH Q4H PRN 10/02/17 [History] Aspirin 325 mg PO DAILY 10/02/17 [History] Fluticasone/Salmeterol [Advair 250-50 Diskus] 1 each IH BID 10/02/17 [History] Furosemide [Lasix] 20 mg PO TID 10/02/17 [History] Ipratropium/Albuterol Neb [Duoneb] 3 ml IH Q6H PRN 10/02/17 [History] Lisinopril/Hydrochlorothiazide [Zestoretic 20-12.5 mg Tablet] 1 each PO BID [History] Lovastatin 40 mg PO HS 10/02/17 [History] Metoprolol [Lopressor] 100 mg PO BID 10/02/17 [History] Oxygen 2 l NS AD 10/02/17 [History] Potassium Chloride [Klor-Con 10] 5 meq PO DAILY 10/02/17 [History] amLODIPine [Norvasc] 5 mg PO DAILY 10/02/17 [History] metFORMIN [Glucophage] 500 mg PO BIDWM #60 tablet 10/10/17 [Rx] predniSONE [PredniSONE] 10 mg PO DAILY 12 Days tablet 10/10/17 [Rx] Allergies/Adverse Reactions: 3 Allergy/AdvReac Type Severity Reaction Status Date / Time Penicillins [PCN] Allergy Mild Rash Verified 01/01/16 21:52 Date of admission: 10/03/17 01:37 Primary care physician: Michel Giron MD Consults: 10/03/17 15:54 Consult to Lanolin Plant Operator [CONS] Routine Comment: Reason for Consult: Newly diagnosed diabetes 10/07/17 09:34 Consult to Latent Fingerprint Examiner [CONS] Routine Reason for SW Consult: Medical POA paperwork 10/07/17 10:28 Consult to Pulmonology [CONS] Routine Consulting Provider: [facility] Mary Kate Reason for Consult: acute respriatory failure 2nd to PNA, in setting of COPD , patient is on 10L O2 and respriatory status not improving. Call Completed: Yes 10/08/17 07:53 Consult to Occupational Therapy [CONS] Routine Comment: Evaluate, develop and implement POC Reason for Consult: Gen weakness Consult to Physical Therapy [CONS] Routine Comment: Evaluate, develop and implement POC Reason for Consult: Gen weakness Discharging clinician: Shante Mckeon Anticipated date of discharge: 10/10/17 - Patient Status Disposition: Home, Self-Care Condition: Good Functional capacity at discharge: uses cane/walker Overall status at discharge: patient is progressing back to baseline - Ambulatory Orders Ambulatory Orders: CT chest wo con [CT] Time Frame: 2 Months, Facility: [facility], Location: Radiology Sleep Study Time Frame: 1 Month, Facility: [facility], Location: [facility] - Discharge Instructions Instructions: Prednisone (By mouth), Metformin (By mouth), Acute Respiratory Distress Syndrome (DC), Diabetes Mellitus Type 2 in Adults (DC), Pneumonia (DC) Follow Up With: Michel Giron MD [Primary Care Provider] - 10/16/17 9:45 am () Ok Morales MD [Partnered Physician] - (Office will call you with an appointment date and time) - Diet and Activity Activity: increase activity as tolerated, wear oxygen at all times Diet: diabetic diet, low fat, low cholesterol, low salt diet Hospital course: Ms. Kumar is a 62 year old female patient with history of COPD on 2.5 L O2 supplementation at home, diastolic congestive heart failure, hypertension who was hospitalized here with acute on chronic respiratory failure with hypoxia and diastolic heart failure along with COPD exacerbation and pneumonia. She was treated for these conditions with intravenous Lasix, intravenous steroids and antibiotics. Patient's recovery has been slow given her severe underlying COPD. Pulmonology has been concentrated in her care especially as the initial CT scan also showed some solitary lung nodule that was 1.9 cm in the posterior right lung apex. Pulmonology recommended that patient undergo repeat CT scan in 2-3 months once her acute condition has been treated. Patient has continued to require high amounts of O2 supplementation and intermittent BiPAP use. She has now been weaned down to 5 L O2 supplementation and is maintaining saturation between 88% to 90%. She also qualified for home BiPAP use after an overnight study. She does have hypercapnia and hypoxia and would benefit from home BiPAP use. She may very well have underlying sleep apnea and would need sleep study as outpatient. Patient wishes to go home today and clinically she is stable for discharge although she does continue to require high FiO2 supplementation at 5 L/m. She will complete steroid taper and will follow up with pulmonology as outpatient. She has completed antibiotic therapy for her pneumonia. She will be discharged once home oxygen and BiPAP have been set up for her. Patient has also been diagnosed with diabetes mellitus. Her A1c was 8.9%. She did have high blood sugars here initially and had been placed on long-acting insulin and sliding scale insulin therapy. This is likely due to steroid use. Her blood sugars have since improved and she is had hypoglycemic episodes earlier today likely due to decreasing her dose of steroids. At this time I plan to discharge patient on metformin alone as she has not been on any medications as outpatient and is wary of using insulin at this time. She can follow-up with her primary care provider for further management. She has been provided with scripts for glucometer and insulin test strips and is advised to check her blood sugars before meals and at bedtime. She needs to notify her primary care provider if her blood sugars are greater than 200 or less than 90. - Time Spent with Patient Total time spent providing and/or coordinating discharge services: Greater than 30 minutes (45 min) - Constitutional Vitals: Temp Pulse Resp BP Pulse Ox 97.6 F 75 22 101/65 89 10/10/17 11:22 10/10/17 11:22 10/10/17 11:22 10/10/17 11:22 10/10/17 11:22 General appearance: Present: cooperative, mild distress, A&O X 3, morbidly obese , pleasant, answers questions appropriately - Respiratory Respiratory exam: Present: decreased breath sounds (bilaterally diminished breath sounds), prolonged expiratory phase, wheezes. Absent: accessory muscle use, rales, rhonchi - Cardiovascular Cardiovascular exam: Present: RRR, +S1, +S2. Absent: diastolic murmur, gallop, rubs, systolic murmur - GI/Abdominal GI/Abdominal exam: Present: normal bowel sounds, soft, no peritoneal signs. Absent: distended, tenderness - Extremities Exam Extremities exam: Present: warm, radial pulses palpable and symmetrical. Absent : calf tenderness, cyanotic, pedal edema - Neurological Exam Neurological exam: Present: CN II-XII intact, oriented X3, no focal deficits. Absent: facial droop, speech deficit
[2017-10-10] MEDS ORDERED: FLUARIX QUAD 2017-18 36MOS UP/PF 0.5 ML SYRINGE IM ONE (15:21)
[2017-10-11] MEDS: Ipratropium/Albuterol Neb 3 ML IH SCH ×4 (03:43→15:14)
[2017-10-11] MEDS: *HR* Heparin 5,000 UNIT/ML VIAL SQ SCH (05:03)
[2017-10-11] MEDS: Budesonide/Formoterol 80/4.5 MDI IH SCH (08:06)
[2017-10-11] MEDS: Insulin LISPRO 300 UNITS/3 ML VIAL SQ SCH ×2 (09:10→12:13)
[2017-10-11] MEDS: predniSONE 20 MG TABLET PO SCH (09:15)
[2017-10-11] MEDS: amLODIPine 5 MG TABLET PO SCH (09:15)
[2017-10-11] MEDS: Lisinopril-HCTZ 20-12.5mg TABLET PO SCH (09:15)
[2017-10-11] MEDS: Furosemide 20 MG TABLET PO SCH ×2 (09:15→12:14)
[2017-10-11] MEDS: Aspirin 325 MG TABLET PO SCH (09:15)
[2017-10-11] MEDS: Metoprolol 100 MG TABLET PO SCH (09:15)
[2017-10-11] MEDS: Nitroglycerin 0.4 MG TAB.SUBL SL PRN ×3 (10:37→10:48)
[2017-10-11 10:40] VITALS: BP 104/65
--- NOTE | 2017-10-11 14:55 | Internal Med Progress Note ---
Date of Encounter: 10/11/17 Time of Encounter: 14:57 - Assessment and plan (1) Chest pain Current Visit: Yes Status: Acute Assessment and plan: Patient complaining of some chest pain. Most likely anxiety related. Troponins are negative. EKG does not show any acute abnormalities. Pain is now much improved. No further workup needed at this time. Consider stress test if pain returns at later date. Qualifiers: Chest pain type: precordial pain Qualified Code(s): R07.2 - Precordial pain (2) Acute and chronic respiratory failure with hypoxia Current Visit: Yes Status: Acute Assessment and plan: Continue home oxygen. Patient will be discharged today once her BiPAP and home oxygen or set up. (3) Acute and chronic respiratory failure with hypercapnia Current Visit: Yes Status: Acute (4) COPD exacerbation Current Visit: Yes Status: Acute Assessment and plan: Patient will complete steroid taper. Follow up outpatient with pulmonology (5) Diabetes mellitus Current Visit: Yes Status: Chronic Assessment and plan: Continue metformin at home. 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 terminal plant operator insulin use: without fdc use Qualified Code(s): E11.9 - Type 2 diabetes mellitus without complications (6) Diastolic heart failure Current Visit: Yes Status: Acute Assessment and plan: Continue Lasix Qualifiers: Heart failure chronicity: acute on chronic Qualified Code(s): I50.33 - Acute on chronic diastolic (congestive) heart failure (7) DVT prophylaxis Current Visit: Yes Status: Acute (8) Essential hypertension Current Visit: Yes Status: Chronic Assessment and plan: Well-controlled (9) Lung nodule seen on imaging study Current Visit: Yes Status: Acute (10) Pneumonia Current Visit: Yes Status: Acute Qualifiers: Pneumonia type: due to unspecified organism Laterality: bilateral Lung location: unspecified part of lung Qualified Code(s): J18.9 - Pneumonia, unspecified organism - Subjective Interval history: Patient was more anxious earlier today and complaining of chest pain. She received nitroglycerin with improvement in her pain. She was discharged yesterday but was unable to go home as home oxygen and BiPAP arrangements were notable to be made appropriately. She denies any palpitations. No nausea or vomiting. She just wishes to go home at this time. - Constitutional Vitals: Temp Pulse Resp BP Pulse Ox 98.2 F 65 18 104/65 94 10/11/17 10:32 10/11/17 10:32 10/11/17 11:37 10/11/17 10:32 10/11/17 11:37 General appearance: Present: cooperative, mild distress, A&O X 3, morbidly obese , pleasant, answers questions appropriately - Neck Neck exam general surgery: Present: supple, trachea midline. Absent: lymphadenopathy - Respiratory Respiratory exam: Present: decreased breath sounds (Diminished breath sounds bilaterally), prolonged expiratory phase, wheezes. Absent: accessory muscle use , rales, rhonchi - Cardiovascular Cardiovascular exam: Present: RRR, +S1, +S2. Absent: diastolic murmur, gallop, rubs, systolic murmur - Extremities Exam Extremities exam: Present: warm, radial pulses palpable and symmetrical. Absent : calf tenderness, cyanotic, pedal edema Internal Medicine: Result - Labs CBC & Chem 7: 10/08/17 05:00 10/09/17 06:35 Labs: Cardiac Enzymes 10/11/17 10/11/17 Range/Units 08:32 13:44 Troponin I 0.03 0.03 (< 0.04) ng/mL - ABG Interpretation ABG results: ABG ABG pH 7.38 pH Units (7.32-7.45) 10/09/17 05:01 ABG pCO2 65 mmHg (35-45) H 10/09/17 05:01 ABG pO2 40 mmHg (85-104) L* 10/09/17 05:01 ABG O2 Saturation 72 % (95-98) L 10/09/17 05:01 PT/INR, D-dimer PT 12.3 Seconds (9.4-12.1) H 10/02/17 18:02 - EKG Interpretation EKG shows normal: sinus rhythm (With intraventricular conduction delay) - Prior EKG Data Prior EKG available for review: yes When compared to previous EKG: there is no significant change Consult Discharge Plan - Plan Instructions: Prednisone (By mouth), Metformin (By mouth), Acute Respiratory Distress Syndrome (DC), Diabetes Mellitus Type 2 in Adults (DC), Pneumonia (DC) Referrals: Michel Giron MD [Primary Care Provider] - 10/16/17 9:45 am () Ok Morales MD [Partnered Physician] - (Office will call you with an appointment date and time) Prescriptions: GlipiZIDE [Glipizide Xl] 5 mg PO DAILY #30 tab.er.24 metFORMIN [Glucophage] 500 mg PO BIDWM #60 tablet predniSONE [PredniSONE] 10 mg PO DAILY 12 Days tablet
--- NOTE | 2017-10-11 19:27 | Electrocardiograph Report ---
[address] [place] [address] Test Date: 2017-10-11 Pat Name: Michelle Kumar Department: 112 Room: 2A42 Gender: F Assistant Grocery: : 1955 Requested By: Shante Mckeon Order Number: [id number] Reading MD: Td Everett MD Measurements Intervals [place] Rate: 59 P: 33 SC: 169 QRS: -24 QRSD: 200 T: 20 QT: 485 QTc: 485 Interpretive Statements SINUS BRADYCARDIA BORDERLINE LEFT AXIS DEVIATION INTRAVENTRICULAR CONDUCTION DELAY, ATYPICAL LBBB Poor R wave progression Electronically Signed On 10-11-2017 19:25:34 EST by Td Everett MD
== END 2017-10-11 15:40 | disposition home or self-care (01) | DRG 194 ==
LOC: 2ANU 16:30 → EMEROO 16:30 → 2ANU 21:07 → SUATTDRO 10-03 01:37
PROVIDERS: ADMIT Student in an Organized Health Care Education/Training Program; ATTEND Internal Medicine

== ENCOUNTER 2018-08-08 12:43 | Inpatient (IN) ==
[2018-08-08] MEDS ORDERED: Ipratropium/Albuterol Neb 3 ML IH ONE (13:00)
[2018-08-08] MEDS ORDERED: 0.9 % Sodium Chloride 500 ML IVC ONE (13:00)
[2018-08-08] MEDS ORDERED: 0.9 % Sodium Chloride 1,000 ML IVC ONE (13:05)
[2018-08-08 13:51] LABS: Basophils % 0.4 %; Eosinophils # 0.1 K/mcL (0.0-0.6); Eosinophils % 1.3 %; Hematocrit 37.7 % (35.3-44.9); Hemoglobin 12.4 g/dL (11.5-15.4); Immature Granulocytes % 0.4 % (0-4); Lymphocytes # 0.3 K/mcL (0.6-4.6); Lymphocytes % 6.3 %; Mean Corpuscular HGB Conc 32.9 g/dL (31.6-35.5); Mean Corpuscular Hemoglobin 30.2 pg (28.0-33.3); Monocytes # 0.3 K/mcL (0.0-1.3); Monocytes % 5.8 %; Neutrophils # 4.6 K/mcL (1.6-8.9); Nucleated Red Blood Cells 0.9 /100 WBC (0); Red Cell Distribution Width 18.3 % (11.5-14.5); Segmented Neutrophils % 85.8 %
[2018-08-08 13:54] LABS: Platelet Count 98 K/mcL (140-400)
[2018-08-08 14:05] LABS: BUN/Creatinine Ratio 34 (6-26); Blood Urea Nitrogen 51 mg/dL (8-23); Calcium 8.7 mg/dL (8.6-10.3); Carbon Dioxide 29 mEq/L (23-29); Chloride 104 mEq/L (98-107); Glucose 117 mg/dL (70-105); Osmolality,Calculated 311 (280-300); Potassium 3.9 mEq/L (3.5-5.1); Sodium 143 mEq/L (136-145); eGFR For Non-African Americans 36 (> 60)
[2018-08-08 14:07] LABS: Troponin I < 0.03 ng/mL (< 0.04)
[2018-08-08 14:09] LABS: Anisocytosis 1+ (Not Present); Platelet Estimate Decreased (Normal)
[2018-08-08] MEDS ORDERED: *HR* Heparin 5,000 UNIT/ML VIAL IVP ONE (14:33)
[2018-08-08] MEDS ORDERED: *HR* Heparin 5,000 UNIT/ML VIAL IVP PRN (14:33)
[2018-08-08 15:11] LABS: Heparin anti-factor XA UFH 0.04 IU/mL (0.30-0.70); Prothrombin Time 10.8 Seconds (9.4-12.1)
[2018-08-08] MEDS ORDERED: Isovue-370 500 ML INFUS..BTL IV ONE (15:49)
[2018-08-08] MEDS ORDERED: Naloxone 0.4 MG/ML INJ IVP PRN (15:52)
--- NOTE | 2018-08-08 16:16 | Electrocardiograph Report ---
[place] [facility] Test Date: 2018-08-08 Pat Name: Michelle Kumar Department: [id number] Room: 2A39 Gender: F Agent Producer: : 1955 Requested By: Maksim Guadalupe Order Number: [id number] Reading MD: Damian Castañeda Measurements Intervals [place] Rate: 106 P: -11 [place]: 134 QRS: -47 QRSD: 166 T: 109 QT: 400 QTc: 532 Interpretive Statements Sinus tachycardia Left bundle branch block Electronically Signed On 08-08-2018 16:14:31 EDT by Damian Castañeda
[2018-08-08] MEDS: 0.9 % Sodium Chloride 1,000 ML IVC SCH (17:04)
[2018-08-08] MEDS: Heparin 25,000 UNIT/500 ML D5W 25,000 UNIT/500 ML BAG IVC SCH (17:05)
[2018-08-08] MEDS: predniSONE 10 MG TABLET PO SCH (18:49)
--- NOTE | 2018-08-08 19:19 | Emergency Department Note ---
Disposition Clinical Impression: MARIE (acute kidney injury), Elevated brain natriuretic peptide (BNP) level, Hypoxia Disposition: Admitted As Inpatient Condition: Fair Time of Disposition: 14:28 General Adult HPI - General Chief complaint: ED Weakness Stated complaint: low blood pressure Time Seen by Provider: 08/08/18 12:47 Source: patient, EMS Mode of arrival: EMS Limitations: no limitations Nursing Notes Reviewed: Yes Vital Signs Reviewed: Yes - History of Present Illness HPI Narrative: Patient is a 63-year-old female that presents to the emergency department for hypotension and hypoxia. Patient states that she has a history of lung cancer and has been feeling more short of breath over the past couple of days and has had a productive cough. Patient states she has been coughing up a greenish yellow sputum. Patient states that she was over at the cancer center today being treated with radiation therapy for her lung cancer when she became more short of breath and her blood pressure dropped. EMS reports that her blood pressure was in the 80s and her oxygen saturation was also in the 80s. Patient denies any chest pain. States that she does have worsening of her shortness of breath when she lays flat. Pain Scale: 0 - Related Data Home Medications Medication Instructions Recorded Confirmed Albuterol Sulfate [Ventolin Hfa] 2 puff IH Q4H PRN 10/02/17 08/08/18 Aspirin 325 mg PO DAILY 10/02/17 08/08/18 Furosemide [Lasix] 20 mg PO TID 10/02/17 08/08/18 Ipratropium/Albuterol Neb [Duoneb] 3 ml IH Q6H PRN 10/02/17 08/08/18 Lisinopril/Hydrochlorothiazide 1 each PO BID 10/02/17 08/08/18 [Zestoretic 20-12.5 mg Tablet] Lovastatin 40 mg PO HS 10/02/17 08/08/18 Metoprolol [Lopressor] 100 mg PO BID 10/02/17 08/08/18 Oxygen 2 l NS AD 10/02/17 08/08/18 Potassium Chloride [Klor-Con 10] 5 meq PO DAILY 10/02/17 08/08/18 amLODIPine [Norvasc] 10 mg PO DAILY 10/02/17 08/08/18 GlipiZIDE [Glipizide Xl] 10 mg PO DAILY 08/05/18 08/08/18 Fluticasone/Salmeterol [Advair 1 puff IH BID 08/08/18 08/08/18 250-50 Diskus] Previous Rx's Medication Instructions Recorded Promethazine [Phenergan] 25 mg PO Q6HR PRN #30 tablet 06/26/18 Sennosides [Senokot] 8.6 mg PO BID #60 tablet 06/26/18 Loperamide [Imodium] 2 mg PO Q4H #30 capsule 07/03/18 Hydrocortisone 1% CREAM [Cortaid] 1 appl TP BID #1 bottle 08/07/18 Levofloxacin [Levaquin] 500 mg PO DAILY #7 tablet 08/07/18 predniSONE [PredniSONE] 10 mg PO AD #21 tablet 08/07/18 Allergies Allergy/AdvReac Type Severity Reaction Status Date / Time Penicillins [PCN] Allergy Mild Hives Verified 06/13/18 10:46 All systems ED: reviewed and negative except as stated. Constitutional: Denies: fever Cardiovascular: Denies: chest pain Respiratory: Reports: cough, dyspnea, sputum production Past Medical History - Past Medical History Medical history: Reports: cancer, diabetes, hypertension, other Surgical history: Reports: appendectomy, cataract Psychiatric history: Reports: no psych history - Social History Smoking Status: 2nd Hand Smoke Exposure Smokeless Tobacco Status: No Alcohol use: Reports: none Drug use: Reports: none Physical Exam - General Limitations: no limitations General appearance: alert, in no apparent distress - Head Head exam: atraumatic, normocephalic - Eye Eye exam: Present: normal appearance, EOMI - Neck Neck exam: Present: normal inspection, full ROM, trachea midline - Respiratory Respiratory exam: Present: normal lung sounds bilaterally. Absent: respiratory distress, wheezes - Cardiovascular Cardiovascular exam: Present: normal rhythm, tachycardia, normal heart sounds, +S1, +S2 - Abdominal Exam Abdominal exam: Present: soft, Non-Tender, normal bowel sounds - Neurological Exam Neurological exam: Present: alert, oriented X3 - Psychiatric Psychiatric exam: Present: normal affect, normal mood - Skin Skin exam: Present: warm, dry, intact Course Vital Signs Temperature 98.5 F 08/08/18 12:51 Pulse Rate 100 08/08/18 12:51 Respiratory Rate 22 08/08/18 12:51 Blood Pressure 85/56 08/08/18 12:51 O2 Sat by Pulse Oximetry 85 08/08/18 12:51 Temperature 98.5 F 08/08/18 12:51 Pulse Rate 100 08/08/18 12:51 Respiratory Rate 22 08/08/18 12:51 Blood Pressure 85/56 08/08/18 12:51 O2 Sat by Pulse Oximetry 98 08/08/18 13:03 Oxygen Delivery Oxygen Delivery Nasal Cannula Medical Decision Making - MDM Narrative Medical decision making narrative: The patient is not emergency Department hypotensive and epoxy the patient was given supplemental oxygen, breathing treatment and IV fluids. Patient's initial EKG did not show any acute ischemic changes but did show old left bundle-branch block. Patient's chest x-ray was normal per radiology read. Patient's troponin is negative. Patient does have what appears to be in a cast. She has elevated creatinine relative to her baseline. Patient does have a mildly elevated BNP but this does appear to be chronic for her. The patient has poor kidney function and is unable to have a CTA of the chest to rule out possible pulmonary embolus. Patient be started on anticoagulation and will be admitted to the hospital for further evaluation and management and CTA of the chest. Patient's blood pressure did improve with IV fluids. Patient states that she is feeling better after receiving a breathing treatment. However the patient does have an acute kidney injury and has been hypoxic and hypotensive upon arrival. I feel that it is important the patient be admitted to the hospital. I spoke with the admitting hospitalist Dr. Wilson and she is in agreement with the patient being admitted to the hospitalist service and being anticoagulated and hydrated in anticipation for a CTA well an inpatient. - Medical Records Medical records reviewed: Yes I reviewed the patient's medical records. - Lab Data Lab results reviewed: Yes I reviewed the patient's lab results. Result diagrams: 08/12/18 07:04 08/12/18 07:04 Lab Results 08/08/18 08/08/18 08/08/18 Range/Units 13:23 13:23 13:23 WBC 5.4 (4.3-11.1) K/mcL RBC 4.10 (3.82-4.97) M/mcL Hgb 12.4 (11.5-15.4) g/dL Hct 37.7 (35.3-44.9) % MCV 92.0 (83.0-100.0) fL MCH 30.2 (28.0-33.3) pg MCHC 32.9 (31.6-35.5) g/dL RDW 18.3 H (11.5-14.5) % Plt Count 98 L (140-400) K/mcL MPV 11.0 (9.4-12.4) fL Immature Gran % 0.4 (0-4) % Seg Neutrophils % 85.8 % Lymphocytes % 6.3 % Monocytes % 5.8 % Eosinophils % 1.3 % Basophils % 0.4 % Neutrophils # 4.6 (1.6-8.9) K/mcL Lymphocytes # 0.3 L (0.6-4.6) K/mcL Monocytes # 0.3 (0.0-1.3) K/mcL Eosinophils # 0.1 (0.0-0.6) K/mcL Basophils # 0.0 (0.0-0.2) K/mcL Nucleated RBCs/100 WBC 0.9 H (0) /100 WBC Platelet Estimate Decreased L (Normal) Anisocytosis 1+ A (Not Present) Sodium 143 (136-145) mEq/L Potassium 3.9 (3.5-5.1) mEq/L Chloride 104 (98-107) mEq/L Carbon Dioxide 29 (23-29) mEq/L BUN 51 H (8-23) mg/dL Creatinine 1.49 H (0.60-1.20) mg/dL Est GFR ( Amer) 43 L (> 60) Est GFR (Non-Af Amer) 36 L (> 60) BUN/Creatinine Ratio 34 H (6-26) Glucose 117 H (70-105) mg/dL Calculated Osmolality 311 H (280-300) Lactic Acid 1.4 (0.5-2.2) mmol/L Calcium 8.7 (8.6-10.3) mg/dL Troponin I < 0.03 (< 0.04) ng/mL B-Natriuretic Peptide (Less than 100) pg/mL 08/08/18 Range/Units 13:23 WBC (4.3-11.1) K/mcL RBC (3.82-4.97) M/mcL Hgb (11.5-15.4) g/dL Hct (35.3-44.9) % MCV (83.0-100.0) fL MCH (28.0-33.3) pg MCHC (31.6-35.5) g/dL RDW (11.5-14.5) % Plt Count (140-400) K/mcL MPV (9.4-12.4) fL Immature Gran % (0-4) % Seg Neutrophils % % Lymphocytes % % Monocytes % % Eosinophils % % Basophils % % Neutrophils # (1.6-8.9) K/mcL Lymphocytes # (0.6-4.6) K/mcL Monocytes # (0.0-1.3) K/mcL Eosinophils # (0.0-0.6) K/mcL Basophils # (0.0-0.2) K/mcL Nucleated RBCs/100 WBC (0) /100 WBC Platelet Estimate (Normal) Anisocytosis (Not Present) Sodium (136-145) mEq/L Potassium (3.5-5.1) mEq/L Chloride (98-107) mEq/L Carbon Dioxide (23-29) mEq/L BUN (8-23) mg/dL Creatinine (0.60-1.20) mg/dL Est GFR ( Amer) (> 60) Est GFR (Non-Af Amer) (> 60) BUN/Creatinine Ratio (6-26) Glucose (70-105) mg/dL Calculated Osmolality (280-300) Lactic Acid (0.5-2.2) mmol/L Calcium (8.6-10.3) mg/dL Troponin I (< 0.04) ng/mL B-Natriuretic Peptide 131 H (Less than 100) pg/mL - Radiology Data Radiology results reviewed: Yes I reviewed the patient's radiology results. Chest X-Ray 08/08/18 13:00 IMPRESSION: Normal chest x-ray D/ / Nik Hinkle MD / Nik Hinkle MD Interpreting Provider: Nik Hinkle MD - EKG Data EKG #1 EKG attestation: Yes I reviewed and interpreted this EKG. EKG results narrative: EKG shows sinus tachycardia at rate of 106. There is evidence of a left bundle branch block was present on previous EKG. FL interval is 134, curious surgeon of 166, QTc of 532. No evidence of STEMI on EKG. Attestation Statement - Attestation Attestation: I examined this patient and my medical decision-making was reviewed with the Resident Physician, Dr. Guadalupe. I agree with the documented findings, disposition and treatment plan as described except to the extent set forth below. Patient is a 63-year-old white female with a history of lung CA resents to the emergency department sent from the oncologist's office where she had just completed radiation therapy appointment this morning. Patient is brought to us for low blood pressure, hypoxia and with the patient describes his gradually worsening shortness of breath over the past few days. Patient denies any fevers or chills, no productive cough or any cough or hemoptysis. Patient denies any chest pain pressure or heaviness, no abdominal pain nausea vomiting back pain or urinary symptoms. Patient did arrive hypotensive and hypoxic was placed on supple oxygen by nasal cannula which did improve her oxygen saturation. Patient has had reported decreased by mouth intake and just generally not feeling well over the past few days according to family at bedside. I agree with patient's physical exam findings as documented. Patient hypotensive on arrival, patient met SIRS criteria by initial vital signs and sepsis protocol was initiated, 2 large-bore IVs were established patient was started on fluid boluses for her blood pressure, labs were drawn and sent him closely and culture and chest x-ray and EKG. EKG shows an old left bundle branch block no acute ischemia today. Patient's blood pressure was responsive to IV fluids, lactate is within normal limits. Patient's troponin was within normal limits. No acute consolidation on chest x-ray. Considering patient's lung cancer history we were concerned about the possibility of PE although she is not been tachycardic throughout her ED course. Due to worsening renal insufficiency likely prerenal due to decreased intake and dehydration patient cannot have contrast at this time. Patient is receiving IV fluids at this time. We spoke with the hospitalist who agreed with empiric treatment with heparin protocol and hydration and they will obtain CT of the chest upon and provement of her kidney function. Patient is hemodynamically improved at this time we will also cover with empiric antibiotics. Patient will be admitted for further evaluation and management by the hospitalist service.
--- NOTE | 2018-08-08 19:43 | Internal Med History&Physical ---
Date of Encounter: 08/08/18 Time of Encounter: 17:30 Internal Medicine - H&P: HPI Chief complaint: Difficulty breathing Admitted From: Home Plans for Post Hospital Care: Home History of present illness: The patient is a 63-year-old female. She was diagnosed with lung cancer sometime in June of this year. She is undergoing chemo and radiation therapy. Her last chemotherapy was 4 days ago. It was today after getting radiation therapy, when she was found to be hypotensive and hypoxic. Her blood pressure when checked at 12:51 PM was 82/56. After giving her IV fluids it increased to 92/56 (80 2:54 PM). The patient is on 5 L/min nasal cannula oxygen; her baseline is at 3 L/min. The patient has had underlying COPD. She has had increased dyspnea, coughing and wheezing for the last 2 or 3 days. HC associated with expectoration of increased amounts of yellowish/greenish sputum. The patient denies fever and chills. She denies chest pain. She denies abdominal pain, nausea and vomiting. She has good amounts of urine. She tells me that she drinks fair amounts of fluids. PAST MEDICAL HX: The patient is treatment for lung cancer. She has underlying COPD; oxygen dependent. She is treated for CHF; her last echocardiogram from January 2017 showed ejection fraction of 55% (indeterminate diastolic function). She is also treated for type 2 diabetes mellitus, hypertension and hyperlipidemia. REVIEW OF SYSTEMS: All 14 organ systems were reviewed by me with the patient. Positive and pertinent negative findings are listed above. The rest of organ systems is negative. PHYSICAL EXAM: Skin: Free of rash and discoloration. Eyes: Sclera is white. There is no discharge from eyes. ENMT: Oral/pharyngeal mucosa is normal in appearance. There is no discharge from nose or ears. Respiratory: Normal breath sounds with no crackles and wheezes bilaterally. CV: Heart is regular with no gallop or murmur. GI: Abdomen is flat and soft with no palpable mass or visceromegaly. : There is no tenderness in patient's flanks bilaterally. Neuro exam: He has good strength in upper and lower extremities. He has normal eye movements. Psychiatric: He has normal affect. His thought process is appropriate to the situation. ADDITIONAL DATA: Hemoglobin is 12.4; with WBC of 5.4 thousand and platelet count of 98,000 (230,000 he was on 07/17/18). Her sodium, potassium and bicarb are normal. Her creatinine is 1.49; 1.04 on 07/17/18. Chest x-ray shows normal findings. A/P: Hypotension/hypoxia. I am ordering CT angiogram of chest. The patient has been already started on IV heparin drip. She may have pulmonary embolism. We will continue supplemental oxygen. COPD exacerbation. We will continue started yesterday Levaquin. She will be taking nebulizer treatments with DuoNeb every 4 hours. We will substitute her Advair with Symbicort. We will continue supplemental oxygen. She may have mild acute kidney injury. Patient might have improved with IV fluids she received discharge. We will check her BMP tomorrow morning. Thrombocytopenia. Likely secondary to chemotherapy/radiation therapy she received recently. Type 2 diabetes mellitus, [id number]. We will keep her on diabetic diet. She will continue her glipizide XL. Possible chronic diastolic heart failure. We will keep her Lasix on hold, as she is hypotensive. It came to my attention that this patient is taking a lot of medications for lowering her blood pressurewe will keep them on hold at this time. Past Med Surg Social Fam HX - Past Medical History Medical history: cancer, diabetes, hypertension, other Additional medical history: Lung/Throat CA Psychiatric history: no psych history - Past Surgical History Surgical History: appendectomy, cataract Additional surgical history: cardiac cath, tubal ligation - Social History Smoking Status: 2nd Hand Smoke Exposure Smokeless Tobacco Status: No Alcohol use: none Drug use: none - Family History Mother Hx Family Cancer: Yes Internal Medicine - H&P: Meds Albuterol Sulfate [Ventolin Hfa] 2 puff IH Q4H PRN 10/02/17 [History] Aspirin 325 mg PO DAILY 10/02/17 [History] Furosemide [Lasix] 20 mg PO TID 10/02/17 [History] Ipratropium/Albuterol Neb [Duoneb] 3 ml IH Q6H PRN 10/02/17 [History] Lisinopril/Hydrochlorothiazide [Zestoretic 20-12.5 mg Tablet] 1 each PO BID 1 12/03/16 [History] Lovastatin 40 mg PO HS 10/02/17 [History] Metoprolol [Lopressor] 100 mg PO BID 10/02/17 [History] Oxygen 2 l NS AD 10/02/17 [History] Potassium Chloride [Klor-Con 10] 5 meq PO DAILY 10/02/17 [History] amLODIPine [Norvasc] 10 mg PO DAILY 10/02/17 [History] Promethazine [Phenergan] 25 mg PO Q6HR PRN #30 tablet 06/26/18 [Rx] Sennosides [Senokot] 8.6 mg PO BID #60 tablet 06/26/18 [Rx] Loperamide [Imodium] 2 mg PO Q4H #30 capsule 07/03/18 [Rx] GlipiZIDE [Glipizide Xl] 10 mg PO DAILY 08/05/18 [History] Hydrocortisone 1% CREAM [Cortaid] 1 appl TP BID #1 bottle 08/07/18 [Rx] Levofloxacin [Levaquin] 500 mg PO DAILY #7 tablet 08/07/18 [Rx] predniSONE [PredniSONE] 10 mg PO AD #21 tablet 08/07/18 [Rx] Fluticasone/Salmeterol [Advair 250-50 Diskus] 1 puff IH BID 08/08/18 [History] Allergy/AdvReac Type Severity Reaction Status Date / Time Penicillins [PCN] Allergy Mild Hives Verified 06/13/18 10:46 All Systems PM: xx - Constitutional Vitals: Temp Pulse Resp BP Pulse Ox 98.8 F 91 19 98/60 90 08/08/18 15:55 08/08/18 15:55 08/08/18 15:55 08/08/18 15:55 08/08/18 15:55 General appearance: Present: A&O X 3, answers questions appropriately Exam: xx Internal Med - H&P Results - Labs CBC & Chem 7: 08/08/18 13:23 08/08/18 13:23 Labs: Short CBC 08/08/18 Range/Units 13:23 WBC 5.4 (4.3-11.1) K/mcL Hgb 12.4 (11.5-15.4) g/dL Hct 37.7 (35.3-44.9) % Plt Count 98 L (140-400) K/mcL Neutrophils # 4.6 (1.6-8.9) K/mcL BMP 08/08/18 13:23 Sodium 143 Potassium 3.9 Chloride 104 Carbon Dioxide 29 BUN 51 H Creatinine 1.49 H Glucose 117 H Calcium 8.7 Cardiac Enzymes 08/08/18 Range/Units 13:23 Troponin I < 0.03 (< 0.04) ng/mL - Impressions ITS Impressions Chest X-Ray 08/08/18 13:00 IMPRESSION: Normal chest x-ray D/ / Nik Hinkle MD / Nik Hinkle MD Interpreting Provider: Nik Hinkle MD - Time Spent With Patient Total time spent is greater than 50% in coordination of care (as documented) at patient's floor/unit and/or counseling patient:
[2018-08-08] MEDS: Ipratropium/Albuterol Neb 3 ML IH SCH ×2 (20:12→23:55)
[2018-08-08] MEDS ORDERED: Budesonide/Formoterol 80/4.5 MDI IH SCH (22:00)
[2018-08-09] MEDS: Ipratropium/Albuterol Neb 3 ML IH SCH ×4 (02:54→15:58)
[2018-08-09] MEDS: Budesonide/Formoterol 80/4.5 MDI IH SCH ×3 (02:55→22:16)
[2018-08-09 05:20] LABS: Basophils % 0.2 %
[2018-08-09 05:22] LABS: Eosinophils % 0.6 %; Hematocrit 34.1 % (35.3-44.9); Hemoglobin 11.2 g/dL (11.5-15.4); Immature Granulocytes % 0.8 % (0-4); Immature Platelets 5.8 % (1.1-6.1); Lymphocytes # 0.2 K/mcL (0.6-4.6); Lymphocytes % 4.8 %; Mean Corpuscular HGB Conc 32.8 g/dL (31.6-35.5); Mean Corpuscular Hemoglobin 29.9 pg (28.0-33.3); Mean Corpuscular Volume 91.2 fL (83.0-100.0); Mean Platelet Volume 10.9 fL (9.4-12.4); Monocytes # 0.2 K/mcL (0.0-1.3); Monocytes % 4.4 %; Neutrophils # 4.3 K/mcL (1.6-8.9); Red Blood Count 3.74 M/mcL (3.82-4.97); Red Cell Distribution Width 18.2 % (11.5-14.5); Segmented Neutrophils % 89.2 %
[2018-08-09 05:27] LABS: Platelet Count 83 K/mcL (140-400)
[2018-08-09 05:38] LABS: BUN/Creatinine Ratio 32 (6-26); Blood Urea Nitrogen 36 mg/dL (8-23); Calcium 8.1 mg/dL (8.6-10.3); Carbon Dioxide 27 mEq/L (23-29); Chloride 107 mEq/L (98-107); Glucose 107 mg/dL (70-105); Osmolality,Calculated 301 (280-300); Potassium 4.3 mEq/L (3.5-5.1); Sodium 141 mEq/L (136-145); eGFR For Non-African Americans 50 (> 60)
[2018-08-09] MEDS ORDERED: Dextrose Gel 15 GM/37.5 ML TUBE PO PRN ×2 (06:41)
[2018-08-09] MEDS ORDERED: *HR* Dextrose 50 % in Water (Syg) 50 ML SYRINGE IVP PRN (06:41)
[2018-08-09] MEDS ORDERED: D5% in Water 1,000 ML IVC PRN (06:41)
[2018-08-09] MEDS: Insulin LISPRO 300 UNITS/3 ML VIAL SQ SCH ×4 (08:25→20:35)
[2018-08-09] MEDS: levoFLOXacin 500 MG TABLET PO SCH (08:25)
[2018-08-09] MEDS: 0.9 % Sodium Chloride 1,000 ML IVC SCH (08:52)
[2018-08-09] MEDS ORDERED: *HR* GlipiZIDE XL (24 HR) 10 MG TABLET PO SCH (09:00)
[2018-08-09 09:45] LABS: ABG Base Excess 3 mEq/L (-2 to 3); ABG HCO3 28 mEq/L (21-27); ABG Oxygen Saturation 94 % (95-98); ABG PCO2 44 mmHg (35-45); ABG PH 7.42 pH Units (7.32-7.45); ABG PO2 70 mmHg (85-104); ABG TCO2 30 mEq/L (20-26)
--- NOTE | 2018-08-09 15:08 | Pulmonology Consult Note ---
Date of Encounter: 08/09/18 Time of Encounter: 11:00 Assessment and Plan (1) Acute and chronic respiratory failure with hypoxia Current Visit: Yes Status: Acute Patient with acute on chronic hypoxic respiratory failure most likely secondary to bilateral acute pulmonary embolism. Patient already has oxygen dependent COPD with pulmonary hypertension with some diastolic dysfunction complicating the picture. To decrease the FiO2 to keep saturation around 90-92%. I explained to the nurse to bring down the FiO2. (2) Pulmonary embolism Current Visit: Yes Status: Acute Patient has bilateral acute pulmonary embolism not involving the main pulmonary trunk mostly in the lobar branches causing this worsening V/Q mismatch from the baseline also causing this increased shortness of breath patient symptomatically lot better after starting on anticoagulation patient had borderline blood pressure with some acute kidney injury with no evidence of lactate acidosis .Some right ventricular strain according to CAT scan will get an echocardiogram to see the right ventricle function as patient already has some Class and Class III pulmonary hypertension with cor pulmonale. Since there is no lactate and her kidneys function is normalized and the with adequate urine output looks like patient has adequate tissue perfusion so patient will NOT need tPA at this point if she gets hemodynamically unstable with poor urine output patient should be transferred to the ICU for further management and possible vasopressor support at that point she might need a tPA. Qualifiers: Pulmonary embolism type: other Chronicity: acute Qualified Code(s): I26.09 - Other pulmonary embolism with acute cor pulmonale (3) Pulmonary hypertension Current Visit: No Status: Acute (4) COPD (chronic obstructive pulmonary disease) Current Visit: Yes Status: Acute To continue with bronchodilators and antibiotics will hold off steroids at this point if she becomes more consistent with wheezing we can start steroids if needed but I will hold off steroids at this point. 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 Denies any chest tightness or denied any chest pain. More of a or shortness of breath presentation. Denies any syncope denies any palpitation denied any other constitutional symptoms. Patient presented to the ER with hypotension found to have pulmonary embolism consulted for her to strain she did not get an ECHO in the ER shows borderline hypotensive with increased creatinine patient responded to fluids lactate was normal but troponin leg but high BNP patient was admitted to the hospitalist service in the floor patient felt better after starting anticoagulation or shortness of breath lot better her blood pressure still borderline but good perfusion of the kidneys with good urine output pulmonary was consult that for evaluation of this acute pulmonary embolism and for further management. Past Med Surg Social Fam HX - Past Medical History Medical history: cancer, diabetes, hypertension, other Additional medical history: Lung/Throat CA Psychiatric history: no psych history - Past Surgical History Surgical History: appendectomy, cataract Additional surgical history: cardiac cath, tubal ligation - Social History Smoking Status: 2nd Hand Smoke Exposure Smokeless Tobacco Status: No Alcohol use: none Drug use: none - Family History Mother Hx Family Cancer: Yes Medications and Allergies Albuterol Sulfate [Ventolin Hfa] 2 puff IH Q4H PRN 10/02/17 [History] Aspirin 325 mg PO DAILY 10/02/17 [History] Furosemide [Lasix] 20 mg PO TID 10/02/17 [History] Ipratropium/Albuterol Neb [Duoneb] 3 ml IH Q6H PRN 10/02/17 [History] Lisinopril/Hydrochlorothiazide [Zestoretic 20-12.5 mg Tablet] 1 each PO BID 10/02/17 [History] Lovastatin 40 mg PO HS 10/02/17 [History] Metoprolol [Lopressor] 100 mg PO BID 10/02/17 [History] Oxygen 2 l NS AD 10/02/17 [History] Potassium Chloride [Klor-Con 10] 5 meq PO DAILY 10/02/17 [History] amLODIPine [Norvasc] 10 mg PO DAILY 10/02/17 [History] Promethazine [Phenergan] 25 mg PO Q6HR PRN #30 tablet 06/26/18 [Rx] Sennosides [Senokot] 8.6 mg PO BID #60 tablet 06/26/18 [Rx] Loperamide [Imodium] 2 mg PO Q4H #30 capsule 07/03/18 [Rx] GlipiZIDE [Glipizide Xl] 10 mg PO DAILY 08/05/18 [History] Hydrocortisone 1% CREAM [Cortaid] 1 appl TP BID #1 bottle 08/07/18 [Rx] Levofloxacin [Levaquin] 500 mg PO DAILY #7 tablet 08/07/18 [Rx] predniSONE [PredniSONE] 10 mg PO AD #21 tablet 08/07/18 [Rx] Fluticasone/Salmeterol [Advair 250-50 Diskus] 1 puff IH BID 08/08/18 [History] Allergy/AdvReac Type Severity Reaction Status Date / Time Penicillins [PCN] Allergy Mild Hives Verified 06/13/18 10:46 All Systems: The remainder of the systems were reviewed and are negative Physical Examination Vital Signs: Vital Signs, Last 4 Hours Temp Pulse Resp BP Pulse Ox 08/09/18 12:45 97.6 F 113 17 82/53 91 08/09/18 11:55 24 91 Neck: no lymphadenopathy Effort: mildly labored Auscultation: bilateral: diminished breath sounds, wheezes (scattered wheezes ) Cardiovascular: other (sinus tachycardia ) Extremities: edema Results - Laboratory Findings CBC and BMP: 08/09/18 04:55 08/09/18 04:55 ABG ABG pH 7.42 pH Units (7.32-7.45) 08/09/18 09:41 ABG pCO2 44 mmHg (35-45) 08/09/18 09:41 ABG pO2 70 mmHg (85-104) L 08/09/18 09:41 ABG O2 Saturation 94 % (95-98) L 08/09/18 09:41 PT/INR, D-dimer PT 10.8 Seconds (9.4-12.1) 08/08/18 14:47 Abnormal lab findings: Abnormal lab results RBC 3.74 M/mcL (3.82-4.97) L 08/09/18 04:55 Hgb 11.2 g/dL (11.5-15.4) L 08/09/18 04:55 Hct 34.1 % (35.3-44.9) L 08/09/18 04:55 RDW 18.2 % (11.5-14.5) H 08/09/18 04:55 Plt Count 83 K/mcL (140-400) L 08/09/18 04:55 Lymphocytes # 0.2 K/mcL (0.6-4.6) L 08/09/18 04:55 Nucleated RBCs/100 WBC 0.9 /100 WBC (0) H 08/08/18 13:23 Platelet Estimate Decreased (Normal) L 08/08/18 13:23 Anisocytosis 1+ (Not Present) A 08/08/18 13:23 ABG pO2 70 mmHg (85-104) L 08/09/18 09:41 ABG HCO3 28 mEq/L (21-27) H 08/09/18 09:41 ABG Total CO2 30 mEq/L (20-26) H 08/09/18 09:41 ABG O2 Saturation 94 % (95-98) L 08/09/18 09:41 BUN 36 mg/dL (8-23) H 08/09/18 04:55 Est GFR (Non-Af Amer) 50 (> 60) L 08/09/18 04:55 BUN/Creatinine Ratio 32 (6-26) H 08/09/18 04:55 Glucose 107 mg/dL (70-105) H 08/09/18 04:55 POC Glucose 111 mg/dL (70-99) H 08/08/18 20:14 Calculated Osmolality 301 (280-300) H 08/09/18 04:55 Calcium 8.1 mg/dL (8.6-10.3) L 08/09/18 04:55 B-Natriuretic Peptide 350 pg/mL (Less than 100) H 08/09/18 11:25 - Clinical Findings Intake & Output: Intake & Output 08/08/18 08/09/18 08/09/18 23:59 07:59 15:59 Intake Total 932 / 932 Output Total 150 / 150 700 / 700 Balance -150 / -150 -700 / -700 932 / 932 Weight 83.009 kg Consult Discharge Plan - Plan Referrals: Michel Giron MD [Primary Care Provider] -
[2018-08-09] MEDS: Heparin 25,000 UNIT/500 ML D5W 25,000 UNIT/500 ML BAG IVC SCH (15:36)
[2018-08-09] MEDS: predniSONE 10 MG TABLET PO SCH (17:34)
--- NOTE | 2018-08-09 19:48 | Internal Med Progress Note ---
Hospitalist Progress Note - Encounter Date of Encounter: 08/09/18 Time of Encounter: 19:00 - Subjective Interval History: SUBJECTIVE: The patient feels better. Her breathing is less labored. She does have mild cough with some wheezing. Denies chest pain. Denies abdominal pain, nausea and vomiting. She makes good amounts of urine. OBJECTIVE: Skin: Free of rash and discoloration. ENMT: Oral/pharyngeal mucosa is normal in appearance. Eyes: Sclera is white. There is no discharge from eyes. Respiratory: Normal breath sounds; no crackles or wheezes. CV: Heart is regular; no gallop or murmur. GI: Abdomen is soft and not tender. There is no palpable mass or visceromegaly. Neuro: There is no focal deficits. ADDITIONAL DATA: Chest x-ray from today shows increasing small left pleural effusion with bibasilar atelectasis. There is persistent 3.1 cm masslike opacity in the right apex. Hemoglobin is 11.2 with WBC of 4.8 thousand. Platelet count is 83,000; 98,000 yesterday. Electrolytes are normal. Creatinine is 1.11; 1.49 yesterday. Fast ing glucose is 107. We did ABG on high flow nasal cannula (10.0 L/min). PH was 7.42 with PCO2 of 44 and PO2 of 70. ASSESSMENT AND PLAN: Bilateral pulmonary embolism/COPD exacerbation/acute on chronic respiratory failure with hypoxia. She is on high flow nasal cannula oxygen. We will continue IV heparin drip. The patient is on IV Levaquin and nebulizer treatments with Symbicort/DuoNeb. She gets prednisone at 10 mg by mouth daily. Consultation was obtained from pulmonary diseases. Acute kidney injury. Resolved. We will stop her IV fluids. Type 2 diabetes mellitus. Seems to be under control. We will continue diabetic diet with glipizide XL. Additionally, when necessary insulin Humalog. Thrombocytopenia. Chronic. We will be watching her platelet count closely, as she is on IV heparin. Possible chronic diastolic heart failure. See results of her today's chest x- ray. We will stop her IV fluids. Squamous cell lung carcinoma. For outpatient treatments. - Exam Vitals: Temp Pulse Resp BP Pulse Ox 98.4 F 128 17 104/66 92 08/09/18 19:21 08/09/18 19:21 08/09/18 19:21 08/09/18 19:21 08/09/18 19:21 Exam: XX - Assessment and Plan (1) Pulmonary embolism Current Visit: Yes Status: Acute (2) COPD exacerbation Current Visit: No Status: Acute (3) Acute and chronic respiratory failure with hypoxia Current Visit: No Status: Acute (4) MARIE (acute kidney injury) Current Visit: Yes Status: Acute (5) T2DM (type 2 diabetes mellitus) Current Visit: Yes Status: Acute (6) Thrombocytopenia Current Visit: Yes Status: Chronic (7) Squamous cell carcinoma of lung Current Visit: Yes Status: Chronic - Time Spent with Patient Total time spent is greater than 50% in coordination of care (as documented) at patient's floor/unit and/or counseling patient: 25 - 35 minutes Plan of Care Discussed with: patient (and family..) Internal Medicine: Result - Labs CBC & Chem 7: 08/09/18 04:55 08/09/18 04:55 Labs: Short CBC 08/09/18 Range/Units 04:55 WBC 4.8 (4.3-11.1) K/mcL Hgb 11.2 L (11.5-15.4) g/dL Hct 34.1 L (35.3-44.9) % Plt Count 83 L (140-400) K/mcL Neutrophils # 4.3 (1.6-8.9) K/mcL BMP 08/09/18 04:55 Sodium 141 Potassium 4.3 Chloride 107 Carbon Dioxide 27 BUN 36 H Creatinine 1.11 Glucose 107 H Calcium 8.1 L Cardiac Enzymes 08/09/18 Range/Units 11:25 Troponin I < 0.03 (< 0.04) ng/mL - ABG Interpretation ABG results: ABG ABG pH 7.42 pH Units (7.32-7.45) 08/09/18 09:41 ABG pCO2 44 mmHg (35-45) 08/09/18 09:41 ABG pO2 70 mmHg (85-104) L 08/09/18 09:41 ABG O2 Saturation 94 % (95-98) L 08/09/18 09:41 PT/INR, D-dimer PT 10.8 Seconds (9.4-12.1) 08/08/18 14:47 - Impressions Impressions Chest CTA 08/08/18 15:49 IMPRESSION: Bilateral acute pulmonary emboli involving the left upper lobe and bilateral lower lobes, as above. Interventricular septum seems slightly flattened on this nongated exam, suggesting right heart strain. Areas of mildly hypoenhancing atelectasis in the lower lungs, amidst distribution of pulmonary emboli, are suspicious for developing infarcts. No substantial change in right apical lung mass. Mildly enlarged right hilar lymph node may correlate with previously seen FDG avid right hilar focus on comparison exam. Critical results were called by Dr. Vaughn Ho to Kedar Chacon on 08/08/2018 at 6:31 p.m.. D/ / 08/08/2018 18:15:27 Vaughn Ho / nichole hernandes Interpreting Provider: Vaughn Ho Chest X-Ray 08/09/18 09:03 IMPRESSION: Increasing small left pleural effusion with bibasilar atelectasis. Persistent 3.1 cm masslike opacity in the right apex. 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
[2018-08-09] MEDS ORDERED: Levalbuterol 1 PUFF INHALER IH SCH (20:00)
[2018-08-09] MEDS: Levalbuterol Neb 1.25 MG/3 ML IH SCH (22:16)
[2018-08-10] MEDS ORDERED: Albuterol Neb 1.25 MG/3 ML VIAL IH SCH
[2018-08-10] MEDS ORDERED: 0.9 % Sodium Chloride 1,000 ML IVC SCH (01:15)
[2018-08-10] MEDS: Levalbuterol Neb 1.25 MG/3 ML IH SCH ×4 (03:42→22:13)
[2018-08-10 05:45] LABS: Basophils % 0.3 %; Eosinophils % 0.3 %
[2018-08-10 05:47] LABS: Hematocrit 31.8 % (35.3-44.9); Hemoglobin 10.7 g/dL (11.5-15.4); Immature Granulocytes % 1.5 % (0-4); Immature Platelets 6.2 % (1.1-6.1); Lymphocytes # 0.3 K/mcL (0.6-4.6); Lymphocytes % 5.6 %; Mean Corpuscular HGB Conc 33.6 g/dL (31.6-35.5); Mean Corpuscular Hemoglobin 30.6 pg (28.0-33.3); Mean Corpuscular Volume 90.9 fL (83.0-100.0); Mean Platelet Volume 10.9 fL (9.4-12.4); Monocytes # 0.2 K/mcL (0.0-1.3); Monocytes % 3.9 %; Neutrophils # 5.2 K/mcL (1.6-8.9); Red Cell Distribution Width 18.1 % (11.5-14.5); Segmented Neutrophils % 88.4 %
[2018-08-10 05:49] LABS: Platelet Count 86 K/mcL (140-400)
[2018-08-10 06:09] LABS: BUN/Creatinine Ratio 27 (6-26); Blood Urea Nitrogen 20 mg/dL (8-23); Calcium 8.6 mg/dL (8.6-10.3); Carbon Dioxide 24 mEq/L (23-29); Chloride 106 mEq/L (98-107); Glucose 47 mg/dL (70-105); Osmolality,Calculated 290 (280-300); Potassium 3.8 mEq/L (3.5-5.1); Sodium 140 mEq/L (136-145); eGFR For Non-African Americans > 60 (> 60)
[2018-08-10] MEDS: *HR* Heparin 5,000 UNIT/ML VIAL IVP PRN ×2 (06:25→19:31)
[2018-08-10] MEDS: Insulin LISPRO 300 UNITS/3 ML VIAL SQ SCH ×4 (09:34→21:48)
[2018-08-10] MEDS: levoFLOXacin 500 MG TABLET PO SCH (09:34)
--- NOTE | 2018-08-10 10:33 | Pulmonology Progress Note ---
Date of Encounter: 08/10/18 Time of Encounter: 10:20 Assessment and Plan (1) Acute and chronic respiratory failure with hypoxia Current Visit: Yes Status: Acute Mostly secondary to acute bilateral pulmonary embolism with a background of chronic pulmonary hypertension and COPD patient oxygenation still the same but the symptoms are a lot better after IV anticoagulation if she is hemodynamically stable over 24 hrs she will need some diuresis as patient looks fluid overloaded now. To stop IV fluids as patient is eating and drinking. She will need incentive spirometry to help with bilateral basilar atelectasis. Will sign off please call with questions if patient situation condition worsens . (2) Pulmonary embolism Current Visit: Yes Status: Acute Patient getting better with IV anticoagulation echo did not show any acute right ventricular pressure overload. She can be transitioned to Lovenox as that will be the best choice for this patient as she has underlying malignancy. Qualifiers: Pulmonary embolism type: other Chronicity: acute Acute cor pulmonale presence: without acute cor pulmonale Qualified Code(s): I26.99 - Other pulmonary embolism without acute cor pulmonale (3) Pulmonary hypertension Current Visit: No Status: Acute Group II and III pulmonary hypertension that is complicating the picture once patient is hemodynamically will need gentle diuresis as tolerated. (4) COPD (chronic obstructive pulmonary disease) Current Visit: Yes Status: Acute Patient needs to be sent home on short acting bronchodilators nebulizer and [facility] will see her in [place] pul[facility]ology in 8 weeks Qualifiers: COPD type: chronic bronchitis Qualified Code(s): J41.1 - Mucopurulent chronic bronchitis Subjective Principal diagnosis: Acute pulmonary embolism Interval history: 63-year-old female with right upper lobe squamous cell carcinoma presenting with shortness of breath found to have bilateral acute pulmonary embolism on anticoagulation patient is doing well the shortness of breath is lot better denies any chest pain or chest tightness denies any fever or chills not much cough or sputum production. Objective PUL Vital signs: Last Vital Signs Temp 98.5 F 08/10/18 06:58 Pulse 106 08/10/18 06:58 Resp 18 08/10/18 06:58 BP 106/64 08/10/18 06:58 Pulse Ox 93 08/10/18 09:42 Auscultation: bilateral: diminished breath sounds (bilateral bibasilar ), rales (bilateral scattered rales ) Cardiovascular: regular rate and rhythm Extremities: edema Results - Laboratory Findings CBC and BMP: 08/10/18 04:58 08/10/18 04:58 ABG ABG pH 7.42 pH Units (7.32-7.45) 08/09/18 09:41 ABG pCO2 44 mmHg (35-45) 08/09/18 09:41 ABG pO2 70 mmHg (85-104) L 08/09/18 09:41 ABG O2 Saturation 94 % (95-98) L 08/09/18 09:41 PT/INR, D-dimer PT 10.8 Seconds (9.4-12.1) 08/08/18 14:47 Abnormal lab findings: Abnormal lab results RBC 3.50 M/mcL (3.82-4.97) L 08/10/18 04:58 Hgb 10.7 g/dL (11.5-15.4) L 08/10/18 04:58 Hct 31.8 % (35.3-44.9) L 08/10/18 04:58 RDW 18.1 % (11.5-14.5) H 08/10/18 04:58 Plt Count 86 K/mcL (140-400) L 08/10/18 04:58 Lymphocytes # 0.3 K/mcL (0.6-4.6) L 08/10/18 04:58 Nucleated RBCs/100 WBC 0.9 /100 WBC (0) H 08/08/18 13:23 Platelet Estimate Decreased (Normal) L 08/08/18 13:23 Immature Plt Fraction 6.2 % (1.1-6.1) H 08/10/18 04:58 Anisocytosis 1+ (Not Present) A 08/08/18 13:23 Heparin Anti-Xa, Unfract 0.25 IU/mL (0.30-0.70) L 08/10/18 04:58 ABG pO2 70 mmHg (85-104) L 08/09/18 09:41 ABG HCO3 28 mEq/L (21-27) H 08/09/18 09:41 ABG Total CO2 30 mEq/L (20-26) H 08/09/18 09:41 ABG O2 Saturation 94 % (95-98) L 08/09/18 09:41 BUN/Creatinine Ratio 27 (6-26) H 08/10/18 04:58 Glucose 47 mg/dL (70-105) L 08/10/18 04:58 B-Natriuretic Peptide 350 pg/mL (Less than 100) H 08/09/18 11:25 - Clinical Findings Intake & Output: Intake & Output 08/09/18 08/10/18 08/10/18 23:59 07:59 15:59 Intake Total 1306 / 1306 Output Total 500 / 500 Balance 806 / 806 Consult Discharge Plan - Plan Referrals: Michel Giron MD [Primary Care Provider] -
[2018-08-10] MEDS: Budesonide/Formoterol 80/4.5 MDI IH SCH ×2 (10:56→22:13)
--- NOTE | 2018-08-10 12:25 | Internal Med Progress Note ---
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 It resolved with emergency treatment for hypoglycemia. I met her a couple hours later. She feels good. Denies resting dyspnea. She does have cough; occasionally with wheezing. She is using high flow nasal cannula oxygen at 8 L/min. Denies chest pain. Denies abdominal pain, nausea and vomiting. She makes good amounts of urine. OBJECTIVE: Skin: Free of rash and discoloration. ENMT: Oral/pharyngeal mucosa is normal in appearance. Eyes: Sclera is white. There is no discharge from eyes. Respiratory: Normal breath sounds. I can hear a few bilateral rhonchi and wheezes. CV: Heart is regular; no gallop or murmur. GI: Abdomen is soft and not tender. There is no palpable mass or visceromegaly. Neuro: There is no focal deficits. ADDITIONAL DATA: Echocardiogram was done today morning. It showed moderate pulmonary hypertension. Hemoglobin is 10.7; with WBC of 5.9 thousand. Platelet count is 86,000; 83,000 yesterday. BMP is normal except of low glucose (47). ASSESSMENT AND PLAN: Bilateral pulmonary embolism/COPD exacerbation/acute on chronic respiratory failure with hypoxia. She is on high flow nasal cannula oxygen. We will continue IV heparin drip. The patient is on IV Levaquin and nebulizer treatments with Symbicort/Xopenex. She gets prednisone at 10 mg by mouth daily. Consultation was obtained from pulmonary diseases. Hypoglycemia in the patient with type 2 diabetes mellitus. We will stop her glipizide. We will continue when necessary Humalog. She is on diabetic diet. Thrombocytopenia. Chronic. We will be watching her platelet count closely, as she is on IV heparin. Possible chronic diastolic heart failure. Stable. Will stop her IV fluids. Squamous cell lung carcinoma. For outpatient treatments. - Exam Vitals: Temp Pulse Resp BP Pulse Ox 97.9 F 110 16 108/68 94 08/10/18 11:18 08/10/18 11:18 08/10/18 11:18 08/10/18 11:18 08/10/18 11:18 Exam: xx - Assessment and Plan (1) Pulmonary embolism Current Visit: Yes Status: Acute (2) COPD exacerbation Current Visit: No Status: Acute (3) Acute and chronic respiratory failure with hypoxia Current Visit: No Status: Acute (4) Hypoglycemia due to type 2 diabetes mellitus Current Visit: Yes Status: Acute (5) T2DM (type 2 diabetes mellitus) Current Visit: Yes Status: Acute (6) Thrombocytopenia Current Visit: Yes Status: Chronic (7) Squamous cell carcinoma of lung Current Visit: Yes Status: Chronic (8) MARIE (acute kidney injury) Current Visit: Yes Status: Resolved - Time Spent with Patient Total time spent is greater than 50% in coordination of care (as documented) at patient's floor/unit and/or counseling patient: 25 - 35 minutes Plan of Care Discussed with: patient Internal Medicine: Result - Labs CBC & Chem 7: 08/10/18 04:58 08/10/18 04:58 Labs: Short CBC 08/10/18 Range/Units 04:58 WBC 5.9 (4.3-11.1) K/mcL Hgb 10.7 L (11.5-15.4) g/dL Hct 31.8 L (35.3-44.9) % Plt Count 86 L (140-400) K/mcL Neutrophils # 5.2 (1.6-8.9) K/mcL BMP 08/10/18 04:58 Sodium 140 Potassium 3.8 Chloride 106 Carbon Dioxide 24 BUN 20 Creatinine 0.73 Glucose 47 L Calcium 8.6 - ABG Interpretation ABG results: ABG ABG pH 7.42 pH Units (7.32-7.45) 08/09/18 09:41 ABG pCO2 44 mmHg (35-45) 08/09/18 09:41 ABG pO2 70 mmHg (85-104) L 08/09/18 09:41 ABG O2 Saturation 94 % (95-98) L 08/09/18 09:41 PT/INR, D-dimer PT 10.8 Seconds (9.4-12.1) 08/08/18 14:47 - Impressions Impressions Chest X-Ray 08/09/18 09:03 IMPRESSION: Increasing small left pleural effusion with bibasilar atelectasis. Persistent 3.1 cm masslike opacity in the right apex. D/ / 08/09/2018 13:09:07 Carlotta Vora MD / cm Interpreting Provider: Carlotta Vora MD Chest X-Ray 08/10/18 08:34 IMPRESSION: Stable chest demonstrating left basilar atelectasis and a persistent mass density in the right apex. D/ / 08/10/2018 09:34:09 Johnny Staton MD / Toyin Wesley Interpreting Provider: Johnny Staton MD Echocardiogram Limited Views 08/10/18 23:56 Impressions: LVEF 50-55%. Mild concentric left ventricular hypertrophy. Normal right ventricular structure. There is no pericardial effusion present. Moderate pulmonary hypertension as evidenced by D shaped left ventricle in short axis. Consult Discharge Plan - Plan Referrals: Michel Giron MD [Primary Care Provider] - (1) Pulmonary embolism Qualifiers: Pulmonary embolism type: other Chronicity: acute Acute cor pulmonale presence: without acute cor pulmonale Qualified Code(s): I26.99 - Other pulmonary embolism without acute cor pulmonale (5) T2DM (type 2 diabetes mellitus) Qualifiers: Diabetes mellitus snf insulin use: without terminal superintendent use Diabetes mellitus complication status: without complication Qualified Code(s): E11.9 - Type 2 diabetes mellitus without complications
[2018-08-10] MEDS: Heparin 25,000 UNIT/500 ML D5W 25,000 UNIT/500 ML BAG IVC SCH (14:19)
[2018-08-10] MEDS: predniSONE 10 MG TABLET PO SCH (18:34)
[2018-08-11 01:30] LABS: Basophils % 0.4 %
[2018-08-11 01:32] LABS: Eosinophils # 0.1 K/mcL (0.0-0.6); Eosinophils % 1.1 %; Hematocrit 31.7 % (35.3-44.9); Hemoglobin 10.7 g/dL (11.5-15.4); Immature Granulocytes % 1.1 % (0-4); Immature Platelets 7.2 % (1.1-6.1); Lymphocytes # 0.2 K/mcL (0.6-4.6); Lymphocytes % 3.5 %; Mean Corpuscular HGB Conc 33.8 g/dL (31.6-35.5); Mean Corpuscular Hemoglobin 30.7 pg (28.0-33.3); Mean Corpuscular Volume 90.8 fL (83.0-100.0); Mean Platelet Volume 10.4 fL (9.4-12.4); Monocytes # 0.3 K/mcL (0.0-1.3); Monocytes % 4.6 %; Neutrophils # 4.8 K/mcL (1.6-8.9); Red Blood Count 3.49 M/mcL (3.82-4.97); Segmented Neutrophils % 89.3 %
[2018-08-11 01:35] LABS: Platelet Count 93 K/mcL (140-400)
[2018-08-11 01:49] LABS: BUN/Creatinine Ratio 20 (6-26); Blood Urea Nitrogen 14 mg/dL (8-23); Calcium 8.1 mg/dL (8.6-10.3); Carbon Dioxide 25 mEq/L (23-29); Chloride 105 mEq/L (98-107); Glucose 143 mg/dL (70-105); Osmolality,Calculated 287 (280-300); Potassium 4.4 mEq/L (3.5-5.1); Sodium 137 mEq/L (136-145); eGFR For Non-African Americans > 60 (> 60)
[2018-08-11 01:54] LABS: Platelet Estimate Slight Decrease (Normal)
[2018-08-11] MEDS: Levalbuterol Neb 1.25 MG/3 ML IH SCH ×4 (03:53→22:24)
[2018-08-11] MEDS: Insulin LISPRO 300 UNITS/3 ML VIAL SQ SCH ×4 (08:12→20:52)
[2018-08-11] MEDS: levoFLOXacin 500 MG TABLET PO SCH (08:14)
[2018-08-11] MEDS ORDERED: predniSONE 20 MG TABLET PO SCH (09:00)
[2018-08-11] MEDS: predniSONE 20 MG TABLET PO SCH (10:02)
[2018-08-11] MEDS: Heparin 25,000 UNIT/500 ML D5W 25,000 UNIT/500 ML BAG IVC SCH (10:03)
[2018-08-11] MEDS: Budesonide/Formoterol 80/4.5 MDI IH SCH ×2 (11:09→22:24)
[2018-08-11] MEDS: Doxycycline 100 MG CAPSULE PO SCH (20:52)
--- NOTE | 2018-08-11 23:00 | Internal Med Progress Note ---
Hospitalist Progress Note - Encounter Date of Encounter: 08/11/18 Time of Encounter: 11:00 - Subjective Interval History: SUBJECTIVE: The patient had hypoglycemia yesterday morning. It has not happen today. She feels weak. She uses supplemental oxygen at 8 L/min nasal cannula oxygen. She does have mild cough. Her wheezing subsided. Denies chest pain. Denies abdominal pain, nausea and vomiting. He makes good amounts of urine. OBJECTIVE: Skin: Free of rash and discoloration. ENMT: Oral/pharyngeal mucosa is normal in appearance. Eyes: Sclera is white. There is no discharge from eyes. Respiratory: Normal breath sounds. I can hear a few bilateral rhonchi and wheezes. CV: Heart is regular; no gallop or murmur. GI: Abdomen is soft and not tender. There is no palpable mass or visceromegaly. Neuro: There is no focal deficits. ADDITIONAL DATA: Echocardiogram was done yesterday. It showed moderate pulmonary hypertension. Her chest x-ray from yesterday showed left basilar atelectasis and a persistent mass density in the right apex. Hemoglobin is 10.7; the same yesterday. WBC is 5.4 thousand. Platelet count is 93,000; 86,000 yesterday. She has normal BMP. ASSESSMENT AND PLAN: Bilateral pulmonary embolism/COPD exacerbation/acute on chronic respiratory failure with hypoxia. She is on high flow nasal cannula oxygen. We will cont inue IV heparin drip. We will substitute Levaquin with doxycycline. To continue nebulizer treatments with Symbicort/Xopenex. She gets prednisone at 10 mg by mouth daily. We appreciate help from pulmonary diseases. Hypoglycemia in the patient with type 2 diabetes mellitus. We stopped her glipizide. We will continue when necessary Humalog. She is on diabetic diet. Thrombocytopenia. Chronic. We will be watching her platelet count closely, as she is on IV heparin. Possible chronic diastolic heart failure. Stable. We will stop her IV fluids. Squamous cell lung carcinoma. For outpatient treatments. - Exam Vitals: Temp Pulse Resp BP Pulse Ox 98.1 F 114 18 97/58 97 08/11/18 19:48 08/11/18 19:48 08/11/18 22:24 08/11/18 19:48 08/11/18 22:24 Exam: xx - Assessment and Plan (1) Pulmonary embolism Current Visit: Yes Status: Acute (2) COPD exacerbation Current Visit: No Status: Acute (3) Acute and chronic respiratory failure with hypoxia Current Visit: No Status: Acute (4) Hypoglycemia due to type 2 diabetes mellitus Current Visit: Yes Status: Acute (5) T2DM (type 2 diabetes mellitus) Current Visit: Yes Status: Acute (6) Thrombocytopenia Current Visit: Yes Status: Chronic (7) Squamous cell carcinoma of lung Current Visit: Yes Status: Chronic - Time Spent with Patient Total time spent is greater than 50% in coordination of care (as documented) at patient's floor/unit and/or counseling patient: 25 - 35 minutes Plan of Care Discussed with: patient Internal Medicine: Result - Labs CBC & Chem 7: 08/11/18 01:12 08/11/18 01:12 Labs: Short CBC 08/11/18 Range/Units 01:12 WBC 5.4 (4.3-11.1) K/mcL Hgb 10.7 L (11.5-15.4) g/dL Hct 31.7 L (35.3-44.9) % Plt Count 93 L (140-400) K/mcL Neutrophils # 4.8 (1.6-8.9) K/mcL BMP 08/11/18 01:12 Sodium 137 Potassium 4.4 Chloride 105 Carbon Dioxide 25 BUN 14 Creatinine 0.70 Glucose 143 H Calcium 8.1 L - ABG Interpretation ABG results: ABG ABG pH 7.42 pH Units (7.32-7.45) 08/09/18 09:41 ABG pCO2 44 mmHg (35-45) 08/09/18 09:41 ABG pO2 70 mmHg (85-104) L 08/09/18 09:41 ABG O2 Saturation 94 % (95-98) L 08/09/18 09:41 PT/INR, D-dimer PT 10.8 Seconds (9.4-12.1) 08/08/18 14:47 - Impressions Impressions Chest X-Ray 08/09/18 09:03 IMPRESSION: Increasing small left pleural effusion with bibasilar atelectasis. Persistent 3.1 cm masslike opacity in the right apex. 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
[2018-08-12] MEDS: Levalbuterol Neb 1.25 MG/3 ML IH SCH ×4 (04:43→22:03)
[2018-08-12] MEDS: Heparin 25,000 UNIT/500 ML D5W 25,000 UNIT/500 ML BAG IVC SCH (05:33)
[2018-08-12 07:30] LABS: Basophils % 0.5 %; Hemoglobin 10.3 g/dL (11.5-15.4); Immature Granulocytes % 0.8 % (0-4); Lymphocytes # 0.3 K/mcL (0.6-4.6); Lymphocytes % 6.8 %; Mean Corpuscular HGB Conc 34.3 g/dL (31.6-35.5); Mean Corpuscular Hemoglobin 30.7 pg (28.0-33.3); Mean Corpuscular Volume 89.6 fL (83.0-100.0); Monocytes # 0.3 K/mcL (0.0-1.3); Monocytes % 7.5 %; Neutrophils # 3.3 K/mcL (1.6-8.9); Platelet Count 124 K/mcL (140-400); Red Blood Count 3.35 M/mcL (3.82-4.97); Red Cell Distribution Width 17.6 % (11.5-14.5); Segmented Neutrophils % 83.4 %
[2018-08-12 07:48] LABS: BUN/Creatinine Ratio 21 (6-26); Blood Urea Nitrogen 13 mg/dL (8-23); Carbon Dioxide 27 mEq/L (23-29); Chloride 106 mEq/L (98-107); Glucose 131 mg/dL (70-105); Osmolality,Calculated 290 (280-300); Potassium 4.2 mEq/L (3.5-5.1); Sodium 139 mEq/L (136-145); eGFR For Non-African Americans > 60 (> 60)
[2018-08-12] MEDS: Insulin LISPRO 300 UNITS/3 ML VIAL SQ SCH ×4 (08:11→20:24)
[2018-08-12] MEDS: predniSONE 20 MG TABLET PO SCH (08:12)
[2018-08-12] MEDS: Doxycycline 100 MG CAPSULE PO SCH ×2 (08:12→20:23)
[2018-08-12] MEDS: Budesonide/Formoterol 80/4.5 MDI IH SCH ×2 (10:32→22:02)
--- NOTE | 2018-08-12 13:42 | Internal Med Progress Note ---
Hospitalist Progress Note - Encounter Date of Encounter: 08/12/18 Time of Encounter: 13:38 - Subjective Interval History: The patient is a 63-year-old female. She was diagnosed with lung cancer sometime in June of this year. She is undergoing chemo and radiation therapy. Her last chemotherapy was 4 days ago. It was today after getting radiation therapy, when she was found to be hypotensive and hypoxic. Her blood pressure when checked at 12:51 PM was 82/56. After giving her IV fluids it increased to 92/56 (80 2:54 PM). The patient is on 5 L/min nasal cannula oxygen; her baseline is at 3 L/min. CTA showed b/l PE, patient was admitted for heparin drip. Patient is doing better, O2 improved from a liters down to 5 L nasal cannula. She was on 3 L for COPD at home. She does have basilar crackles bilateral. We will give IV Lasix 20 mg twice a day. Pulmonary consult appreciated, patient is going to follow-up was pulmonary in 80 weeks for COPD and the lung cancer. If able to wean oxygen down to her baseline 3 L she may be discharged on oral xarelto or Eliquis. - Exam Vitals: Temp Pulse Resp BP Pulse Ox 97.6 F 97 18 97/62 96 08/12/18 10:47 08/12/18 10:47 08/12/18 10:47 08/12/18 10:47 08/12/18 10:47 Exam: CONSTITUTIONAL: patient appears as an age appropriate female in no acute distress. EYES Clear sclerae, bilateral pupils are equal, reactive to light. EMOI. RESPIRATORY: No accessory muscle use, bilateral crackles to auscultation, no wheezing. CARDIOVASCULAR: Regular heart rate, normal S1 and S2, no murmurs GASTROINTESTINAL: bowel sounds present, soft, no tenderness. MUSCULOSKELETAL: Joints in normal range of motion, no clubbing, no edema, no cyanosis. Bilateral peripheral pulses 2+. NEUROLOGIC: CN II to XII are grossly intact, no focal neurological deficit. - Assessment and Plan (1) Pulmonary embolism Current Visit: Yes Status: Acute Assessment and Plan: Bilateral pulmonary PE, in setting of active lung cancer. We will continue heparin drip, can discharge on oral anticoagulation was Xarelto, or ELiquis when able to wean O2 down to 3 L NC xarelto scripts is in the chart (2) MARIE (acute kidney injury) Current Visit: Yes Status: Acute Assessment and Plan: Resolved and was IV fluids (3) Acute and chronic respiratory failure with hypoxia Current Visit: Yes Status: Acute Assessment and Plan: Due to acute pulmonary emboli, was on 8 L nasal cannula able to wean down to 5 L nasal cannula today. No sign for COPD exacerbation we will give IV Lasix 20 mg twice a day (4) COPD (chronic obstructive pulmonary disease) Current Visit: Yes Status: Acute Assessment and Plan: Continue home medication, appreciate pulmonary consult Patient was on 3 L nasal cannula at home. (5) T2DM (type 2 diabetes mellitus) Current Visit: Yes Status: Chronic Assessment and Plan: Continue home medication (6) Thrombocytopenia Current Visit: Yes Status: Chronic (7) Squamous cell carcinoma of lung Current Visit: Yes Status: Chronic Assessment and Plan: Follow-up was oncologist, ongoing chemotherapy and radiation (8) Diastolic heart failure Current Visit: Yes Status: Acute Assessment and Plan: IV fluids was d/odell, was started IV Lasix twice a day (9) Essential hypertension Current Visit: No Status: Chronic (10) Pulmonary hypertension Current Visit: No Status: Acute - Time Spent with Patient Total time spent is greater than 50% in coordination of care (as documented) at patient's floor/unit and/or counseling patient: 25 - 35 minutes Plan of Care Discussed with: patient Internal Medicine: Result - Labs CBC & Chem 7: 08/12/18 07:04 08/12/18 07:04 Labs: Short CBC 08/12/18 Range/Units 07:04 WBC 4.0 L (4.3-11.1) K/mcL Hgb 10.3 L (11.5-15.4) g/dL Hct 30.0 L (35.3-44.9) % Plt Count 124 L (140-400) K/mcL Neutrophils # 3.3 (1.6-8.9) K/mcL BMP 08/12/18 07:04 Sodium 139 Potassium 4.2 Chloride 106 Carbon Dioxide 27 BUN 13 Creatinine 0.63 Glucose 131 H Calcium 9.0 - ABG Interpretation ABG results: ABG ABG pH 7.42 pH Units (7.32-7.45) 08/09/18 09:41 ABG pCO2 44 mmHg (35-45) 08/09/18 09:41 ABG pO2 70 mmHg (85-104) L 08/09/18 09:41 ABG O2 Saturation 94 % (95-98) L 08/09/18 09:41 PT/INR, D-dimer PT 10.8 Seconds (9.4-12.1) 08/08/18 14:47 - Impressions Impressions Chest X-Ray 08/09/18 09:03 IMPRESSION: Increasing small left pleural effusion with bibasilar atelectasis. Persistent 3.1 cm masslike opacity in the right apex. D/ / 08/09/2018 13:09:07 Carlotta Vora MD / tkyer Interpreting Provider: Carlotta Vora MD Videofluoroscopic Swallow 08/12/18 17:01 IMPRESSION: Penetration with all tested consistencies. No aspiration. Please see separate speech pathology report for full discussion of findings and recommendations. 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
[2018-08-12] MEDS: Furosemide 20 MG/2 ML VIAL IVP SCH ×2 (14:53→16:59)
[2018-08-13] MEDS: Heparin 25,000 UNIT/500 ML D5W 25,000 UNIT/500 ML BAG IVC SCH ×2 (01:05→20:11)
[2018-08-13] MEDS: Levalbuterol Neb 1.25 MG/3 ML IH SCH ×4 (03:43→22:41)
[2018-08-13 07:12] LABS: Basophils % 0.6 %; Eosinophils % 1.2 %; Hematocrit 31.1 % (35.3-44.9); Hemoglobin 10.4 g/dL (11.5-15.4); Immature Granulocytes % 1.8 % (0-4); Lymphocytes # 0.3 K/mcL (0.6-4.6); Lymphocytes % 10.1 %; Mean Corpuscular HGB Conc 33.4 g/dL (31.6-35.5); Mean Corpuscular Hemoglobin 30.5 pg (28.0-33.3); Mean Corpuscular Volume 91.2 fL (83.0-100.0); Mean Platelet Volume 10.5 fL (9.4-12.4); Monocytes # 0.3 K/mcL (0.0-1.3); Monocytes % 10.1 %; Neutrophils # 2.6 K/mcL (1.6-8.9); Platelet Count 143 K/mcL (140-400); Red Blood Count 3.41 M/mcL (3.82-4.97); Red Cell Distribution Width 17.7 % (11.5-14.5); Segmented Neutrophils % 76.2 %
[2018-08-13 07:21] LABS: BUN/Creatinine Ratio 27 (6-26); Blood Urea Nitrogen 17 mg/dL (8-23); Calcium 8.8 mg/dL (8.6-10.3); Carbon Dioxide 31 mEq/L (23-29); Chloride 107 mEq/L (98-107); Glucose 109 mg/dL (70-105); Magnesium 1.6 mg/dL (1.6-2.6); Osmolality,Calculated 296 (280-300); Potassium 3.5 mEq/L (3.5-5.1); Sodium 142 mEq/L (136-145); eGFR For Non-African Americans > 60 (> 60)
[2018-08-13] MEDS: predniSONE 20 MG TABLET PO SCH (08:48)
[2018-08-13] MEDS: Doxycycline 100 MG CAPSULE PO SCH ×2 (08:48→20:10)
[2018-08-13] MEDS: Insulin LISPRO 300 UNITS/3 ML VIAL SQ SCH ×4 (08:49→20:11)
[2018-08-13] MEDS: Furosemide 20 MG/2 ML VIAL IVP SCH ×2 (08:49→16:22)
[2018-08-13] MEDS: Budesonide/Formoterol 80/4.5 MDI IH SCH ×2 (10:11→22:41)
--- NOTE | 2018-08-13 13:26 | Internal Med Progress Note ---
Date of Encounter: 08/13/18 Time of Encounter: 13:25 - Time Spent With Patient (1) Pulmonary embolism Current Visit: Yes Status: Acute Assessment and Plan: Bilateral pulmonary PE, in setting of active lung cancer. We will continue heparin drip, can discharge on oral anticoagulation was Xarelto, or ELiquis when able to wean O2 down to 3 L NC xarelto scripts is in the chart (2) MARIE (acute kidney injury) Current Visit: Yes Status: Acute Assessment and Plan: Resolved and was IV fluids (3) Acute and chronic respiratory failure with hypoxia Current Visit: Yes Status: Acute Assessment and Plan: Due to acute pulmonary emboli, Sats are fluctuating and need to be stablised. Pt stable otherwise. (4) COPD (chronic obstructive pulmonary disease) Current Visit: Yes Status: Acute Assessment and Plan: Continue home medication, appreciate pulmonary consult Patient was on 3 L nasal cannula at home. (5) T2DM (type 2 diabetes mellitus) Current Visit: Yes Status: Chronic Assessment and Plan: Continue home medication (6) Thrombocytopenia Improved to normal today. Current Visit: Yes Status: Chronic (7) Squamous cell carcinoma of lung Current Visit: Yes Status: Chronic Assessment and Plan: Follow-up was oncologist, ongoing chemotherapy and radiation (8) Diastolic heart failure Current Visit: Yes Status: Acute Assessment and Plan: IV fluids was d/odell, was started IV Lasix twice a day (9) Essential hypertension Current Visit: No Status: Chronic (10) Pulmonary hypertension Current Visit: No Status: Acute - Time Spent with Patient Total time spent is greater than 50% in coordination of care (as documented) at patient's floor/unit and/or counseling patient: 25 - 35 minutes Plan of Care Discussed with: patient 25 - 35 minutes - Subjective Interval history: Patient seen and examined today. She reports her breathing is better. She was on 3L O2 87-88%. Her O2 had to be bumped up to 5 L. She denies any chest pain. From Chart: The patient is a 63-year-old female. She was diagnosed with lung cancer sometime in June of this year. She is undergoing chemo and radiation therapy. Her last chemotherapy was 4 days ago. It was today after getting radiation therapy, when she was found to be hypotensive and hypoxic. Her blood pressure when checked at 12:51 PM was 82/56. After giving her IV fluids it increased to 92/56 (80 2:54 PM). The patient is on 5 L/min nasal cannula oxygen; her baseline is at 3 L/min. CTA showed b/l PE, patient was admitted for heparin drip. - Constitutional Vitals: Temp Pulse Resp BP Pulse Ox 98.8 F 108 18 110/70 90 08/13/18 13:18 08/13/18 13:18 08/13/18 13:18 08/13/18 13:18 08/13/18 13:18 General appearance: Present: A&O X 3, answers questions appropriately Exam: CONSTITUTIONAL: patient appears as an age appropriate female in no acute distress. EYES Clear sclerae, bilateral pupils are equal, reactive to light. EMOI. RESPIRATORY: No accessory muscle use, bilateral crackles to auscultation, no wheezing. CARDIOVASCULAR: Regular heart rate, normal S1 and S2, no murmurs GASTROINTESTINAL: bowel sounds present, soft, no tenderness. MUSCULOSKELETAL: Joints in normal range of motion, no clubbing, no edema, no cyanosis. Bilateral peripheral pulses 2+. NEUROLOGIC: CN II to XII are grossly intact, no focal neurological deficit. Internal Medicine: Result - Labs CBC & Chem 7: 08/13/18 06:42 08/13/18 06:42 Labs: Short CBC 08/13/18 Range/Units 06:42 WBC 3.4 L (4.3-11.1) K/mcL Hgb 10.4 L (11.5-15.4) g/dL Hct 31.1 L (35.3-44.9) % Plt Count 143 (140-400) K/mcL Neutrophils # 2.6 (1.6-8.9) K/mcL BMP 08/13/18 06:42 Sodium 142 Potassium 3.5 Chloride 107 Carbon Dioxide 31 H BUN 17 Creatinine 0.64 Glucose 109 H Calcium 8.8 - ABG Interpretation ABG results: ABG ABG pH 7.42 pH Units (7.32-7.45) 08/09/18 09:41 ABG pCO2 44 mmHg (35-45) 08/09/18 09:41 ABG pO2 70 mmHg (85-104) L 08/09/18 09:41 ABG O2 Saturation 94 % (95-98) L 08/09/18 09:41 PT/INR, D-dimer PT 10.8 Seconds (9.4-12.1) 08/08/18 14:47 Consult Discharge Plan - Plan Referrals: Michel Giron MD [Primary Care Provider] - Prescriptions: Rivaroxaban [Xarelto] 15 mg PO BID #42 tablet Rivaroxaban [Xarelto] 20 mg PO DAILY #60 tablet
[2018-08-14] MEDS: Levalbuterol Neb 1.25 MG/3 ML IH SCH ×3 (03:34→16:01)
[2018-08-14 07:18] LABS: Basophils % 0.6 %; Eosinophils % 1.3 %; Hematocrit 31.8 % (35.3-44.9); Hemoglobin 10.7 g/dL (11.5-15.4); Immature Granulocytes % 1.6 % (0-4); Lymphocytes # 0.3 K/mcL (0.6-4.6); Lymphocytes % 10.7 %; Mean Corpuscular HGB Conc 33.6 g/dL (31.6-35.5); Mean Corpuscular Hemoglobin 30.8 pg (28.0-33.3); Mean Corpuscular Volume 91.6 fL (83.0-100.0); Mean Platelet Volume 10.2 fL (9.4-12.4); Monocytes # 0.3 K/mcL (0.0-1.3); Monocytes % 10.7 %; Neutrophils # 2.3 K/mcL (1.6-8.9); Nucleated Red Blood Cells 0.6 /100 WBC (0); Platelet Count 162 K/mcL (140-400); Red Blood Count 3.47 M/mcL (3.82-4.97); Red Cell Distribution Width 18.4 % (11.5-14.5); Segmented Neutrophils % 75.1 %
[2018-08-14 07:30] LABS: BUN/Creatinine Ratio 25 (6-26); Blood Urea Nitrogen 17 mg/dL (8-23); Calcium 8.7 mg/dL (8.6-10.3); Carbon Dioxide 29 mEq/L (23-29); Chloride 106 mEq/L (98-107); Glucose 106 mg/dL (70-105); Osmolality,Calculated 298 (280-300); Potassium 3.7 mEq/L (3.5-5.1); Sodium 143 mEq/L (136-145); eGFR For Non-African Americans > 60 (> 60)
[2018-08-14] MEDS: predniSONE 20 MG TABLET PO SCH (09:08)
[2018-08-14] MEDS: Doxycycline 100 MG CAPSULE PO SCH (09:08)
[2018-08-14] MEDS: Insulin LISPRO 300 UNITS/3 ML VIAL SQ SCH ×2 (09:09→12:13)
[2018-08-14] MEDS: Furosemide 20 MG/2 ML VIAL IVP SCH (09:09)
[2018-08-14] MEDS ORDERED: *HR* Rivaroxaban 15 MG TABLET PO SCH (10:00)
--- NOTE | 2018-08-14 10:24 | Internal Med Progress Note ---
Hospitalist Progress Note - Encounter Date of Encounter: 08/14/18 Time of Encounter: 10:20 - Subjective Interval History: MS. Kumar is a 63 yowf was seen at bedside today. She states her shortness of breath is much better from when she was admitted. She still has a cough that is productive of light greenish/yellow sputum. She states she has no pain. Shew as on 5L of O2 when examined but she said that had just been increased after she had went to the restroom, but that she had been doing better on a slightly lower amount. - Exam Vitals: Temp Pulse Resp BP Pulse Ox 98 F 109 20 113/71 97 08/14/18 06:51 08/14/18 06:51 08/14/18 06:51 08/14/18 06:51 08/14/18 09:01 Exam: General: AAOx3, answers questions appropriately, no acute distress Cardiac: RRR, no murmurs rubs or gallops Pulmonary: CTAB, no wheezes or rales Extremities: pulses equal all 4 extremities, no pedal edema Skin: warm, dry, intact, no rashes - Assessment and Plan (1) Pulmonary embolism Current Visit: Yes Status: Acute Assessment and Plan: Bilateral pulmonary PE, in setting of active lung cancer. We will switch heparin to Xerelto when able to wean O2 down to 3 L NC (2) MARIE (acute kidney injury) Current Visit: Yes Status: Resolved Assessment and Plan: resolved with IV fluids (3) Acute and chronic respiratory failure with hypoxia Current Visit: No Status: Acute Assessment and Plan: Due to bilateral PE, stats stable on 5L, will continue to try to ween down to home O2 of 3L (4) COPD (chronic obstructive pulmonary disease) Current Visit: Yes Status: Chronic Assessment and Plan: continue home medications (5) T2DM (type 2 diabetes mellitus) Current Visit: Yes Status: Chronic Assessment and Plan: continue home medications (6) Thrombocytopenia Current Visit: Yes Status: Chronic Assessment and Plan: resolved (7) Squamous cell carcinoma of lung Current Visit: Yes Status: Chronic Assessment and Plan: outpatient follow up with oncology, is currently only receiving radiation (8) Diastolic heart failure Current Visit: Yes Status: Acute Assessment and Plan: 20 IV lasix daily, not currently on IV fluids (9) Essential hypertension Current Visit: No Status: Chronic Assessment and Plan: currently controlled, restart home medications if needed - Time Spent with Patient Total time spent is greater than 50% in coordination of care (as documented) at patient's floor/unit and/or counseling patient: Internal Medicine: Result - Labs CBC & Chem 7: 08/14/18 06:56 08/14/18 06:56 Labs: Short CBC 08/14/18 Range/Units 06:56 WBC 3.1 L (4.3-11.1) K/mcL Hgb 10.7 L (11.5-15.4) g/dL Hct 31.8 L (35.3-44.9) % Plt Count 162 (140-400) K/mcL Neutrophils # 2.3 (1.6-8.9) K/mcL BMP 08/14/18 06:56 Sodium 143 Potassium 3.7 Chloride 106 Carbon Dioxide 29 BUN 17 Creatinine 0.68 Glucose 106 H Calcium 8.7 - ABG Interpretation ABG results: ABG ABG pH 7.42 pH Units (7.32-7.45) 08/09/18 09:41 ABG pCO2 44 mmHg (35-45) 08/09/18 09:41 ABG pO2 70 mmHg (85-104) L 08/09/18 09:41 ABG O2 Saturation 94 % (95-98) L 08/09/18 09:41 PT/INR, D-dimer PT 10.8 Seconds (9.4-12.1) 08/08/18 14:47 Consult Discharge Plan - Plan Referrals: Michel Giron MD [Primary Care Provider] - Prescriptions: Rivaroxaban [Xarelto] 15 mg PO BID #42 tablet Rivaroxaban [Xarelto] 20 mg PO DAILY #60 tablet ___ (1) Pulmonary embolism Qualifiers: Pulmonary embolism type: other Chronicity: acute Acute cor pulmonale presence: without acute cor pulmonale Qualified Code(s): I26.99 - Other pulmonary embolism without acute cor pulmonale (4) COPD (chronic obstructive pulmonary disease) Qualifiers: COPD type: emphysema Qualified Code(s): J43.2 - Centrilobular emphysema (5) T2DM (type 2 diabetes mellitus) Qualifiers: Diabetes mellitus senior living insulin use: without senior living use Diabetes mellitus complication status: without complication Qualified Code(s): E11.9 - Type 2 diabetes mellitus without complications (8) Diastolic heart failure Qualifiers: Heart failure chronicity: acute on chronic Qualified Code(s): I50.33 - Acute on chronic diastolic (congestive) heart failure
[2018-08-14] MEDS: Budesonide/Formoterol 80/4.5 MDI IH SCH (11:03)
--- NOTE | 2018-08-14 14:11 | Discharge Summary ---
<Alexandra Arora E - Last Filed: 08/14/18 14:46> Date of Encounter: 08/14/18 Time of Encounter: 09:00 - Discharge Diagnosis (1) Pulmonary embolism Priority: Primary Status: Acute Assessment and Plan: Bilateral pulmonary PE, in setting of active lung cancer. We will continue heparin drip, can discharge on oral anticoagulation was Xarelto 02 qualification shows 5L and her current home dose is ordered for 5L, no new prescription needed Qualifiers: Pulmonary embolism type: other Chronicity: acute Acute cor pulmonale presence: without acute cor pulmonale Qualified Code(s): I26.99 - Other pulmonary embolism without acute cor pulmonale (2) MARIE (acute kidney injury) Priority: Primary Status: Resolved Assessment and Plan: Resolved and was IV fluids (3) Acute and chronic respiratory failure with hypoxia Priority: Primary Status: Acute Assessment and Plan: Due to acute pulmonary emboli, stats stable at 5L, 02 qualification shows 5L and her current home dose is ordered for 5L, no new prescription needed (4) COPD (chronic obstructive pulmonary disease) Priority: Secondary Status: Chronic Assessment and Plan: Continue home medication Patient was on 3 L nasal cannula at home. 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 insulin use: without watermelon inspector use Diabetes mellitus complication status: without complication Qualified Code(s): E11.9 - Type 2 diabetes mellitus without complications (6) Thrombocytopenia Priority: Secondary Status: Chronic Assessment and Plan: resolved (7) Squamous cell carcinoma of lung Priority: Primary Status: Chronic Assessment and Plan: follows outpatient with oncology, currently having radiation only Qualifiers: Qualified Code(s): C34.90 - Malignant neoplasm of unspecified part of unspecified bronchus or lung (8) Diastolic heart failure Priority: Primary Status: Acute Assessment and Plan: currently on lasix, IV fluids held Qualifiers: Heart failure chronicity: acute on chronic Qualified Code(s): I50.33 - Acute on chronic diastolic (congestive) heart failure (9) Essential hypertension Priority: Secondary Status: Chronic Assessment and Plan: currently controlled Hospital course: Ms. Kumar is a 63 year old female who presented to [facility] ED on 08/08 with shortness fo breath increased after er radiation treatment for her lung cancer. She was foudn to have bilateral PE's, MARIE, and was hypoxic. She was started on a heparin drip for her pumonary emboli. her oxygen requirements have decreased to 5L by nasal cannula, her typical home O2 is 3L by nasal cannula. We will restart Xerelto for her PE's when she is discharged. MARIE resolved with fluids. PAtients pain has decreased and her shortness of breath s now back to her baseline. Patient is stable to discharge, plan for today after qualifying for hoe O2 to see if she qualifies for more home oxygen. Discharge discussed with: patient - Time Spent with Patient Total time spent providing and/or coordinating discharge services: - Discharge Medications Prescriptions: Rivaroxaban [Xarelto] 15 mg PO BID #42 tablet Rivaroxaban [Xarelto] 20 mg PO DAILY #60 tablet Home Medications: RX: Albuterol Sulfate [Ventolin Hfa] 2 puff IH Q4H PRN 10/02/17 [History] RX: Aspirin 325 mg PO DAILY 10/02/17 [History] RX: Furosemide [Lasix] 20 mg PO TID 10/02/17 [History] RX: Ipratropium/Albuterol Neb [Duoneb] 3 ml IH Q6H PRN 10/02/17 [History] RX: Lisinopril/Hydrochlorothiazide [Zestoretic 20-12.5 mg Tablet] 1 each PO BID 10/02/17 [History] RX: Lovastatin 40 mg PO HS 10/02/17 [History] RX: Metoprolol [Lopressor] 100 mg PO BID 10/02/17 [History] RX: Oxygen 2 l NS AD 10/02/17 [History] RX: Potassium Chloride [Klor-Con 10] 5 meq PO DAILY 10/02/17 [History] RX: amLODIPine [Norvasc] 10 mg PO DAILY 10/02/17 [History] Promethazine [Phenergan] 25 mg PO Q6HR PRN #30 tablet 06/26/18 [Rx] Sennosides [Senokot] 8.6 mg PO BID #60 tablet 06/26/18 [Rx] Loperamide [Imodium] 2 mg PO Q4H #30 capsule 07/03/18 [Rx] RX: GlipiZIDE [Glipizide Xl] 10 mg PO DAILY 08/05/18 [History] Levofloxacin [Levaquin] 500 mg PO DAILY #7 tablet 08/07/18 [Rx] RX: Hydrocortisone 1% CREAM [Cortaid] 1 appl TP BID #1 bottle 08/07/18 [Rx] predniSONE [PredniSONE] 10 mg PO AD #21 tablet 08/07/18 [Rx] RX: Fluticasone/Salmeterol [Advair 250-50 Diskus] 1 puff IH BID 08/08/18 [History] Rivaroxaban [Xarelto] 15 mg PO BID #42 tablet 08/12/18 [Rx] Rivaroxaban [Xarelto] 20 mg PO DAILY #60 tablet 08/12/18 [Rx] Allergies/Adverse Reactions: Allergy/AdvReac Type Severity Reaction Status Date / Time Penicillins [PCN] Allergy Mild Hives Verified 06/13/18 10:46 Date of admission: 08/08/18 17:46 Primary care physician: Michel Giron MD Consults: 08/09/18 11:09 Consult to Pulmonology [CONS] Routine Consulting Provider: [facility] Sleep Mary Kate Reason for Consult: PE Time Notified: 11:05 Call Completed: Yes 08/11/18 14:01 Consult to Speech Therapy [CONS] Routine Comment: Evaluate, develop and implement POC Reason for Consult: difficulty swallowing Time Notified: 14:01 Call Completed: Yes Discharging clinician: Shante Mckeon Anticipated date of discharge: 08/14/18 - Constitutional Vitals: Temp Pulse Resp BP Pulse Ox 98 F 109 20 113/71 93 08/14/18 06:51 08/14/18 06:51 08/14/18 06:51 08/14/18 06:51 08/14/18 12:57 General appearance: Present: A&O X 3, answers questions appropriately Exam: General: AAOx3, no acute distress, answers qeustions appropriately Cardio: RRR, no murmurs, rubs, or gallops Pulmonary: CTAB,no wehees, rhonchi Extremities: no pedal edema, pulses equal in all 4 extremities Skin: warm, dry, intact - Patient Status Disposition: Home, Self-Care Condition: Good Functional capacity at discharge: independent ambulation Overall status at discharge: patient is progressing back to baseline - Discharge Instructions Instructions: Pulmonary Embolism (GEN) Follow Up With: Michel Giron MD [Primary Care Provider] - (web request sent on 08/14/18. Office will call you with an appointment date and time) Additional Instructions: 5L O2 by Nasal cannula - Diet and Activity Activity: increase activity as tolerated Diet: advance to your usual diet <Shante Mckeon - Last Filed: 08/14/18 17:42> - NOTES TO OUTPATIENT PROVIDER Notes to Outpatient Provider: Patient with history of lung cancer receiving radiation treatment was hospitalized here with acute shortness of breath. She was diagnosed with acute bilateral pulmonary embolism involving left upper lobe and bilateral lower lobes. She was started on IV heparin and has now been transitioned to his Xarelto. She is back on her baseline home oxygen level of 5 L/m. She will be discharged today and will continue Xarelto Date of Encounter: 08/14/18 Time of Encounter: 17:18 - Discharge Diagnosis (1) Acute and chronic respiratory failure with hypoxia Priority: Primary Status: Acute (2) COPD exacerbation Priority: Secondary Status: Acute (3) Squamous cell carcinoma of lung Status: Chronic Qualifiers: Qualified Code(s): C34.90 - Malignant neoplasm of unspecified part of unspecified bronchus or lung (4) Pulmonary embolism Status: Acute Qualifiers: Pulmonary embolism type: other Chronicity: acute Acute cor pulmonale presence: without acute cor pulmonale Qualified Code(s): I26.99 - Other pulmonary embolism without acute cor pulmonale (5) T2DM (type 2 diabetes mellitus) Status: Chronic Qualifiers: Diabetes mellitus mcc insulin use: without mcc use Diabetes mellitus complication status: without complication Qualified Code(s): E11.9 - Type 2 diabetes mellitus without complications (6) Thrombocytopenia Status: Chronic (7) Hypoglycemia due to type 2 diabetes mellitus Status: Acute Hospital course: Ms. Kumar is a 63 year old female - Time Spent with Patient Total time spent providing and/or coordinating discharge services: Date of admission: 08/08/18 17:46 Primary care physician: Michel Giron MD Consults: 08/09/18 11:09 Consult to Pulmonology [CONS] Routine Consulting Provider: Pulm [facility] Sleep Mary Kate Reason for Consult: PE Time Notified: 11:05 Call Completed: Yes 08/11/18 14:01 Consult to Speech Therapy [CONS] Routine Comment: Evaluate, develop and implement POC Reason for Consult: difficulty swallowing Time Notified: 14:01 Call Completed: Yes - Constitutional Vitals: Temp Pulse Resp BP Pulse Ox 98.1 F 118 20 108/68 91 08/14/18 14:58 08/14/18 14:58 08/14/18 16:04 08/14/18 14:58 08/14/18 16:04 General appearance: Present: cooperative, A&O X 3, answers questions appropriately - Respiratory Respiratory exam: Present: prolonged expiratory phase, rhonchi, wheezes. Absent: accessory muscle use, rales - Cardiovascular Cardiovascular exam: Present: RRR, +S1, +S2. Absent: diastolic murmur, gallop, rubs, systolic murmur - Attending Attestation I saw evaluated and examined this patient and my medical decision-making was reviewed with the Resident Physician, Alexandra Arora. I agree with the documented findings, disposition and treatment plan as described except to any changes set forth below. We independently had [id number] contact with the patient.
[2018-08-14 14:59] VITALS: BP 108/68
--- NOTE | 2018-08-15 18:33 | Electrocardiograph Report ---
[address] [address] Test Date: 2018-08-09 Pat Name: Michelle Kumar Department: 109 Room: 2A Gender: F [place] Guide: : 1955 Requested By: [id number] Order Number: [id number] Reading MD: Ramone Lizarraga Measurements Intervals [place] Rate: 124 P: -30 ME: 229 QRS: -57 QRSD: 152 T: 107 QT: 354 QTc: 427 Interpretive Statements SINUS TACHYCARDIA WITH FIRST DEGREE AV BLOCK MARKED LEFT AXIS DEVIATION INTRAVENTRICULAR CONDUCTION DELAY Electronically Signed On 08-15-2018 18:31:24 EDT by Ramone Lizarraga
== END 2018-08-14 17:32 | disposition home or self-care (01) | DRG 134 ==
LOC: EMEROOARM 12:43 → 2ANU 12:43 → SUATTDRO 14:38 → 2ANU 15:39 → SUATTDRO 17:46
PROVIDERS: ADMIT Internal Medicine Nephrology; ATTEND Internal Medicine

== ENCOUNTER 2018-09-25 18:18 | Inpatient (IN) ==
[2018-09-25] MEDS ORDERED: *HR* Dextrose 50 % in Water (Syg) 50 ML SYRINGE ONE (18:20)
[2018-09-25] MEDS ORDERED: 0.9 % Sodium Chloride 500 ML IVC ONE (18:24)
[2018-09-25] MEDS ORDERED: *HR* Dextrose 50 % in Water (Syg) 50 ML SYRINGE IVP ONE ×2 (18:24→22:21)
[2018-09-25 19:02] LABS: Hemoglobin 11.2 g/dL (11.5-15.4); Mean Corpuscular HGB Conc 32.9 g/dL (31.6-35.5); Mean Corpuscular Hemoglobin 33.2 pg (28.0-33.3); Mean Corpuscular Volume 100.9 fL (83.0-100.0); Mean Platelet Volume 10.2 fL (9.4-12.4); Platelet Count 171 K/mcL (140-400); Red Blood Count 3.37 M/mcL (3.82-4.97); Red Cell Distribution Width 15.3 % (11.5-14.5)
--- NOTE | 2018-09-25 19:06 | Emergency Department Note ---
Disposition Clinical Impression: Hypoglycemia associated with diabetes Hypotension Qualifiers: Hypotension type: unspecified hypotension type Qualified Code(s): I95.9 - Hypotension, unspecified Disposition: Admitted As Inpatient Condition: Fair General Adult HPI - General Chief complaint: ED Altered Mental Status Stated complaint: Low Sugar Time Seen by Provider: 09/25/18 18:49 Source: patient, family, EMS Limitations: no limitations Nursing Notes Reviewed: Yes Vital Signs Reviewed: Yes - History of Present Illness HPI Narrative: Patient presents per EMS and I did see the patient immediately upon arrival and the story is that she was last seen normal at 2:00 this afternoon and the daughter found her around 6:00 unresponsive so called the paramedics and when they arrived the patient had a blood sugar of 12 and a oxygen saturation of 83% slough placed her on a nonrebreather mask and were unable to place an IV so gave her glucagon and a recheck of the blood sugar was 61 and her mental status was significantly increased. The patient states that she does not have any pain in the head, neck, chest, abdomen or back. No numbness or weakness of the extremities does not feel confused at this time. States only uses insulin as needed. She did have a smaller amount of food today than usual. Social history: No smoking. She is here with her daughter Pain Scale: 0 - Related Data Home Medications Medication Instructions Recorded Confirmed RX: Albuterol Sulfate [Ventolin 2 puff IH Q4H PRN 10/02/17 09/25/18 Hfa] RX: Aspirin 325 mg PO DAILY 10/02/17 09/25/18 RX: Furosemide [Lasix] 20 mg PO TID 10/02/17 09/25/18 RX: Ipratropium/Albuterol Neb 3 ml IH Q6H PRN 10/02/17 09/25/18 [Duoneb] RX: Lovastatin 40 mg PO HS 10/02/17 09/25/18 RX: Oxygen 2 l NS AD 10/02/17 09/25/18 RX: Potassium Chloride [Klor-Con 5 meq PO DAILY 10/02/17 09/25/18 10] RX: Fluticasone/Salmeterol [Advair 1 puff IH BID 08/08/18 09/25/18 250-50 Diskus] RX: Levalbuterol HCl [Xopenex] 1.25 mg IH Q6H 09/25/18 09/25/18 RX: Lisinopril-HCTZ 20-12.5 1 tab PO DAILY 09/25/18 09/25/18 [Prinzide 20-12.5] RX: Metoprolol Succinate [Toprol 25 mg PO DAILY 09/25/18 09/25/18 Xl] RX: Tramadol HCl [Ultram] 50 mg PO QID PRN 09/25/18 09/25/18 Previous Rx's Medication Instructions Recorded RX: Rivaroxaban [Xarelto] 20 mg PO DAILY #60 tablet 08/12/18 Amoxicillin/Clavulanate [Augmentin] 875 mg PO BIDWM 2 Days #4 tablet 09/30/18 RX: Cyanocobalamin (B-12) [Vitamin 1,000 mcg PO DAILY 14 Days #14 09/30/18 B12] tablet Allergies Allergy/AdvReac Type Severity Reaction Status Date / Time Penicillins [PCN] Allergy Mild Hives Verified 09/21/18 10:34 All systems ED: reviewed and negative except as stated. Past Medical History - Past Medical History Medical history: Reports: cancer, diabetes, hypertension, other Surgical history: Reports: appendectomy, cataract Psychiatric history: Reports: no psych history - Social History Smoking Status: 2nd Hand Smoke Exposure Smokeless Tobacco Status: No Alcohol use: Reports: none Drug use: Reports: none Physical Exam CONSTITUTIONAL: Alert and oriented X3, well-nourished, well appearing, in no apparent distress, hair is moist from likely sweating earlier but the patient is not currently diaphoretic HEAD: Normocephalic; atraumatic. EYES: PERRL, no scleral icterus. NOSE: The nose is normal in appearance without rhinorrhea RESP: Normal chest excursion with respiration; breath sounds clear and equal bilaterally; no wheezes, rhonchi, or rales CARD: Regular rhythm, without murmurs, rub or gallop ABD: Non-distended; non-tender, soft,without rigidity, rebound or guarding SKIN: Normal for age and race; warm and dry; no apparent lesions - General Limitations: no limitations General appearance: alert Course Vital Signs Temperature 97.7 F 09/25/18 18:26 Pulse Rate 108 09/25/18 18:26 Respiratory Rate 18 09/25/18 18:26 Blood Pressure 105/66 09/25/18 18:26 O2 Sat by Pulse Oximetry 92 09/25/18 18:26 Temperature 97.9 F 10/01/18 10:51 Pulse Rate 110 10/01/18 10:51 Respiratory Rate 16 10/01/18 10:51 Blood Pressure 122/75 10/01/18 10:51 O2 Sat by Pulse Oximetry 91 10/01/18 10:51 Oxygen Delivery Oxygen Delivery Nasal Cannula Medical Decision Making - MDM Narrative Medical decision making narrative: IV was started easily and the patient received D50 1 amp, labs are pending, IV fluids, the patient will be reassessed 1906 - Lab Data Result diagrams: 10/01/18 03:25 10/01/18 03:25 Lab Results 09/25/18 09/25/18 09/25/18 Range/Units 18:26 18:38 18:38 WBC 9.4 (4.3-11.1) K/mcL RBC 3.37 L (3.82-4.97) M/mcL Hgb 11.2 L (11.5-15.4) g/dL Hct 34.0 L (35.3-44.9) % MCV 100.9 H (83.0-100.0) fL MCH 33.2 (28.0-33.3) pg MCHC 32.9 (31.6-35.5) g/dL RDW 15.3 H (11.5-14.5) % Plt Count 171 (140-400) K/mcL MPV 10.2 (9.4-12.4) fL Immature Gran % (0-4) % Seg Neutrophils % % Lymphocytes % % Monocytes % % Eosinophils % % Basophils % % Neutrophils # (1.6-8.9) K/mcL Lymphocytes # (0.6-4.6) K/mcL Monocytes # (0.0-1.3) K/mcL Eosinophils # (0.0-0.6) K/mcL Basophils # (0.0-0.2) K/mcL PT (9.4-12.1) Seconds INR Sodium 141 (136-145) mEq/L Potassium 3.3 L (3.5-5.1) mEq/L Chloride 101 (98-107) mEq/L Carbon Dioxide 36 H (23-29) mEq/L BUN 19 (8-23) mg/dL Creatinine 1.10 (0.60-1.20) mg/dL Est GFR ( Amer) > 60 (> 60) Est GFR (Non-Af Amer) 50 L (> 60) BUN/Creatinine Ratio 17 (6-26) Glucose 216 H (70-105) mg/dL POC Glucose 262 H (70-99) mg/dL Calculated Osmolality 301 H (280-300) Lactic Acid (0.5-2.2) mmol/L Calcium 9.2 (8.6-10.3) mg/dL Total Bilirubin 0.4 (0.3-1.0) mg/dL Direct Bilirubin 0.1 (0.0-0.2) mg/dL Indirect Bilirubin 0.3 (0.0-1.2) mg/dL AST 10 L (13-39) Units/L ALT 5 L (7-52) Units/L Alkaline Phosphatase 49 (34-104) Units/L Troponin I 0.03 (< 0.04) ng/mL Serum Total Protein 5.2 L (6.4-8.9) g/dL Albumin 3.0 L (3.5-5.7) g/dL Globulin 2.2 L (2.4-3.5) g/dL Albumin/Globulin Ratio 1.4 (1.1-2.2) Urine Color (Yellow) Urine Clarity (Clear) Urine pH (5.0-8.0) pH Units Ur Specific [place] (1.010-1.025) Urine Protein (Neg-Trace) mg/dL Urine Glucose (UA) (Normal) mg/dL Urine Ketones (Negative) mg/dL Urine Blood (Negative) Urine Nitrite (Negative) Urine Bilirubin (Negative) Urine Urobilinogen (Normal) mg/dL Ur Leukocyte Esterase (Negative) Urine Microscopic RBC (0-3) per hpf Urine Microscopic WBC (0-3) per hpf Ur Squamous Epith Cells (None-Few) per lpf Urine Bacteria (None-Few) per hpf Hyaline Casts (None-Few) per lpf 09/25/18 09/25/18 09/25/18 Range/Units 19:29 20:19 20:38 WBC (4.3-11.1) K/mcL RBC (3.82-4.97) M/mcL Hgb (11.5-15.4) g/dL Hct (35.3-44.9) % MCV (83.0-100.0) fL MCH (28.0-33.3) pg MCHC (31.6-35.5) g/dL RDW (11.5-14.5) % Plt Count (140-400) K/mcL MPV (9.4-12.4) fL Immature Gran % (0-4) % Seg Neutrophils % % Lymphocytes % % Monocytes % % Eosinophils % % Basophils % % Neutrophils # (1.6-8.9) K/mcL Lymphocytes # (0.6-4.6) K/mcL Monocytes # (0.0-1.3) K/mcL Eosinophils # (0.0-0.6) K/mcL Basophils # (0.0-0.2) K/mcL PT (9.4-12.1) Seconds INR Sodium (136-145) mEq/L Potassium (3.5-5.1) mEq/L Chloride (98-107) mEq/L Carbon Dioxide (23-29) mEq/L BUN (8-23) mg/dL Creatinine (0.60-1.20) mg/dL Est GFR ( Amer) (> 60) Est GFR (Non-Af Amer) (> 60) BUN/Creatinine Ratio (6-26) Glucose (70-105) mg/dL POC Glucose 127 H (70-99) mg/dL Calculated Osmolality (280-300) Lactic Acid 1.1 (0.5-2.2) mmol/L Calcium (8.6-10.3) mg/dL Total Bilirubin (0.3-1.0) mg/dL Direct Bilirubin (0.0-0.2) mg/dL Indirect Bilirubin (0.0-1.2) mg/dL AST (13-39) Units/L ALT (7-52) Units/L Alkaline Phosphatase (34-104) Units/L Troponin I (< 0.04) ng/mL Serum Total Protein (6.4-8.9) g/dL Albumin (3.5-5.7) g/dL Globulin (2.4-3.5) g/dL Albumin/Globulin Ratio (1.1-2.2) Urine Color Yellow (Yellow) Urine Clarity Clear (Clear) Urine pH 6.5 (5.0-8.0) pH Units Ur Specific [place] 1.016 (1.010-1.025) Urine Protein Trace (Neg-Trace) mg/dL Urine Glucose (UA) Normal (Normal) mg/dL Urine Ketones Trace H (Negative) mg/dL Urine Blood Negative (Negative) Urine Nitrite Negative (Negative) Urine Bilirubin Small H (Negative) Urine Urobilinogen Normal (Normal) mg/dL Ur Leukocyte Esterase Small H (Negative) Urine Microscopic RBC 0-3 (0-3) per hpf Urine Microscopic WBC 3-5 H (0-3) per hpf Ur Squamous Epith Cells Many H (None-Few) per lpf Urine Bacteria Few (None-Few) per hpf Hyaline Casts None Seen (None-Few) per lpf 09/25/18 09/25/18 09/25/18 Range/Units 22:18 22:22 22:50 WBC (4.3-11.1) K/mcL RBC (3.82-4.97) M/mcL Hgb (11.5-15.4) g/dL Hct (35.3-44.9) % MCV (83.0-100.0) fL MCH (28.0-33.3) pg MCHC (31.6-35.5) g/dL RDW (11.5-14.5) % Plt Count (140-400) K/mcL MPV (9.4-12.4) fL Immature Gran % (0-4) % Seg Neutrophils % % Lymphocytes % % Monocytes % % Eosinophils % % Basophils % % Neutrophils # (1.6-8.9) K/mcL Lymphocytes # (0.6-4.6) K/mcL Monocytes # (0.0-1.3) K/mcL Eosinophils # (0.0-0.6) K/mcL Basophils # (0.0-0.2) K/mcL PT (9.4-12.1) Seconds INR Sodium (136-145) mEq/L Potassium (3.5-5.1) mEq/L Chloride (98-107) mEq/L Carbon Dioxide (23-29) mEq/L BUN (8-23) mg/dL Creatinine (0.60-1.20) mg/dL Est GFR ( Amer) (> 60) Est GFR (Non-Af Amer) (> 60) BUN/Creatinine Ratio (6-26) Glucose (70-105) mg/dL POC Glucose 27 L* 23 L* 135 H (70-99) mg/dL Calculated Osmolality (280-300) Lactic Acid (0.5-2.2) mmol/L Calcium (8.6-10.3) mg/dL Total Bilirubin (0.3-1.0) mg/dL Direct Bilirubin (0.0-0.2) mg/dL Indirect Bilirubin (0.0-1.2) mg/dL AST (13-39) Units/L ALT (7-52) Units/L Alkaline Phosphatase (34-104) Units/L Troponin I (< 0.04) ng/mL Serum Total Protein (6.4-8.9) g/dL Albumin (3.5-5.7) g/dL Globulin (2.4-3.5) g/dL Albumin/Globulin Ratio (1.1-2.2) Urine Color (Yellow) Urine Clarity (Clear) Urine pH (5.0-8.0) pH Units Ur Specific [place] (1.010-1.025) Urine Protein (Neg-Trace) mg/dL Urine Glucose (UA) (Normal) mg/dL Urine Ketones (Negative) mg/dL Urine Blood (Negative) Urine Nitrite (Negative) Urine Bilirubin (Negative) Urine Urobilinogen (Normal) mg/dL Ur Leukocyte Esterase (Negative) Urine Microscopic RBC (0-3) per hpf Urine Microscopic WBC (0-3) per hpf Ur Squamous Epith Cells (None-Few) per lpf Urine Bacteria (None-Few) per hpf Hyaline Casts (None-Few) per lpf 09/25/18 09/26/18 09/26/18 Range/Units 23:35 00:27 01:15 WBC (4.3-11.1) K/mcL RBC (3.82-4.97) M/mcL Hgb (11.5-15.4) g/dL Hct (35.3-44.9) % MCV (83.0-100.0) fL MCH (28.0-33.3) pg MCHC (31.6-35.5) g/dL RDW (11.5-14.5) % Plt Count (140-400) K/mcL MPV (9.4-12.4) fL Immature Gran % (0-4) % Seg Neutrophils % % Lymphocytes % % Monocytes % % Eosinophils % % Basophils % % Neutrophils # (1.6-8.9) K/mcL Lymphocytes # (0.6-4.6) K/mcL Monocytes # (0.0-1.3) K/mcL Eosinophils # (0.0-0.6) K/mcL Basophils # (0.0-0.2) K/mcL PT (9.4-12.1) Seconds INR Sodium (136-145) mEq/L Potassium (3.5-5.1) mEq/L Chloride (98-107) mEq/L Carbon Dioxide (23-29) mEq/L BUN (8-23) mg/dL Creatinine (0.60-1.20) mg/dL Est GFR ( Amer) (> 60) Est GFR (Non-Af Amer) (> 60) BUN/Creatinine Ratio (6-26) Glucose (70-105) mg/dL POC Glucose 93 82 72 (70-99) mg/dL Calculated Osmolality (280-300) Lactic Acid (0.5-2.2) mmol/L Calcium (8.6-10.3) mg/dL Total Bilirubin (0.3-1.0) mg/dL Direct Bilirubin (0.0-0.2) mg/dL Indirect Bilirubin (0.0-1.2) mg/dL AST (13-39) Units/L ALT (7-52) Units/L Alkaline Phosphatase (34-104) Units/L Troponin I (< 0.04) ng/mL Serum Total Protein (6.4-8.9) g/dL Albumin (3.5-5.7) g/dL Globulin (2.4-3.5) g/dL Albumin/Globulin Ratio (1.1-2.2) Urine Color (Yellow) Urine Clarity (Clear) Urine pH (5.0-8.0) pH Units Ur Specific [place] (1.010-1.025) Urine Protein (Neg-Trace) mg/dL Urine Glucose (UA) (Normal) mg/dL Urine Ketones (Negative) mg/dL Urine Blood (Negative) Urine Nitrite (Negative) Urine Bilirubin (Negative) Urine Urobilinogen (Normal) mg/dL Ur Leukocyte Esterase (Negative) Urine Microscopic RBC (0-3) per hpf Urine Microscopic WBC (0-3) per hpf Ur Squamous Epith Cells (None-Few) per lpf Urine Bacteria (None-Few) per hpf Hyaline Casts (None-Few) per lpf 09/26/18 09/26/18 09/26/18 Range/Units 02:08 03:04 04:02 WBC (4.3-11.1) K/mcL RBC (3.82-4.97) M/mcL Hgb (11.5-15.4) g/dL Hct (35.3-44.9) % MCV (83.0-100.0) fL MCH (28.0-33.3) pg MCHC (31.6-35.5) g/dL RDW (11.5-14.5) % Plt Count (140-400) K/mcL MPV (9.4-12.4) fL Immature Gran % (0-4) % Seg Neutrophils % % Lymphocytes % % Monocytes % % Eosinophils % % Basophils % % Neutrophils # (1.6-8.9) K/mcL Lymphocytes # (0.6-4.6) K/mcL Monocytes # (0.0-1.3) K/mcL Eosinophils # (0.0-0.6) K/mcL Basophils # (0.0-0.2) K/mcL PT (9.4-12.1) Seconds INR Sodium (136-145) mEq/L Potassium (3.5-5.1) mEq/L Chloride (98-107) mEq/L Carbon Dioxide (23-29) mEq/L BUN (8-23) mg/dL Creatinine (0.60-1.20) mg/dL Est GFR ( Amer) (> 60) Est GFR (Non-Af Amer) (> 60) BUN/Creatinine Ratio (6-26) Glucose (70-105) mg/dL POC Glucose 100 H 81 43 L* (70-99) mg/dL Calculated Osmolality (280-300) Lactic Acid (0.5-2.2) mmol/L Calcium (8.6-10.3) mg/dL Total Bilirubin (0.3-1.0) mg/dL Direct Bilirubin (0.0-0.2) mg/dL Indirect Bilirubin (0.0-1.2) mg/dL AST (13-39) Units/L ALT (7-52) Units/L Alkaline Phosphatase (34-104) Units/L Troponin I (< 0.04) ng/mL Serum Total Protein (6.4-8.9) g/dL Albumin (3.5-5.7) g/dL Globulin (2.4-3.5) g/dL Albumin/Globulin Ratio (1.1-2.2) Urine Color (Yellow) Urine Clarity (Clear) Urine pH (5.0-8.0) pH Units Ur Specific [place] (1.010-1.025) Urine Protein (Neg-Trace) mg/dL Urine Glucose (UA) (Normal) mg/dL Urine Ketones (Negative) mg/dL Urine Blood (Negative) Urine Nitrite (Negative) Urine Bilirubin (Negative) Urine Urobilinogen (Normal) mg/dL Ur Leukocyte Esterase (Negative) Urine Microscopic RBC (0-3) per hpf Urine Microscopic WBC (0-3) per hpf Ur Squamous Epith Cells (None-Few) per lpf Urine Bacteria (None-Few) per hpf Hyaline Casts (None-Few) per lpf 09/26/18 09/26/18 09/26/18 Range/Units 04:30 05:07 05:57 WBC (4.3-11.1) K/mcL RBC (3.82-4.97) M/mcL Hgb (11.5-15.4) g/dL Hct (35.3-44.9) % MCV (83.0-100.0) fL MCH (28.0-33.3) pg MCHC (31.6-35.5) g/dL RDW (11.5-14.5) % Plt Count (140-400) K/mcL MPV (9.4-12.4) fL Immature Gran % (0-4) % Seg Neutrophils % % Lymphocytes % % Monocytes % % Eosinophils % % Basophils % % Neutrophils # (1.6-8.9) K/mcL Lymphocytes # (0.6-4.6) K/mcL Monocytes # (0.0-1.3) K/mcL Eosinophils # (0.0-0.6) K/mcL Basophils # (0.0-0.2) K/mcL PT (9.4-12.1) Seconds INR Sodium (136-145) mEq/L Potassium (3.5-5.1) mEq/L Chloride (98-107) mEq/L Carbon Dioxide (23-29) mEq/L BUN (8-23) mg/dL Creatinine (0.60-1.20) mg/dL Est GFR ( Amer) (> 60) Est GFR (Non-Af Amer) (> 60) BUN/Creatinine Ratio (6-26) Glucose (70-105) mg/dL POC Glucose 74 59 L 68 L (70-99) mg/dL Calculated Osmolality (280-300) Lactic Acid (0.5-2.2) mmol/L Calcium (8.6-10.3) mg/dL Total Bilirubin (0.3-1.0) mg/dL Direct Bilirubin (0.0-0.2) mg/dL Indirect Bilirubin (0.0-1.2) mg/dL AST (13-39) Units/L ALT (7-52) Units/L Alkaline Phosphatase (34-104) Units/L Troponin I (< 0.04) ng/mL Serum Total Protein (6.4-8.9) g/dL Albumin (3.5-5.7) g/dL Globulin (2.4-3.5) g/dL Albumin/Globulin Ratio (1.1-2.2) Urine Color (Yellow) Urine Clarity (Clear) Urine pH (5.0-8.0) pH Units Ur Specific [place] (1.010-1.025) Urine Protein (Neg-Trace) mg/dL Urine Glucose (UA) (Normal) mg/dL Urine Ketones (Negative) mg/dL Urine Blood (Negative) Urine Nitrite (Negative) Urine Bilirubin (Negative) Urine Urobilinogen (Normal) mg/dL Ur Leukocyte Esterase (Negative) Urine Microscopic RBC (0-3) per hpf Urine Microscopic WBC (0-3) per hpf Ur Squamous Epith Cells (None-Few) per lpf Urine Bacteria (None-Few) per hpf Hyaline Casts (None-Few) per lpf 09/26/18 09/26/18 09/26/18 Range/Units 06:29 07:18 08:09 WBC 6.4 (4.3-11.1) K/mcL RBC 3.38 L (3.82-4.97) M/mcL Hgb 11.2 L (11.5-15.4) g/dL Hct 35.6 (35.3-44.9) % MCV 105.3 H (83.0-100.0) fL MCH 33.1 (28.0-33.3) pg MCHC 31.5 L (31.6-35.5) g/dL RDW 15.4 H (11.5-14.5) % Plt Count 135 L (140-400) K/mcL MPV 10.6 (9.4-12.4) fL Immature Gran % 0.3 (0-4) % Seg Neutrophils % 83.0 % Lymphocytes % 9.6 % Monocytes % 5.8 % Eosinophils % 0.8 % Basophils % 0.5 % Neutrophils # 5.3 (1.6-8.9) K/mcL Lymphocytes # 0.6 (0.6-4.6) K/mcL Monocytes # 0.4 (0.0-1.3) K/mcL Eosinophils # 0.1 (0.0-0.6) K/mcL Basophils # 0.0 (0.0-0.2) K/mcL PT (9.4-12.1) Seconds INR Sodium (136-145) mEq/L Potassium (3.5-5.1) mEq/L Chloride (98-107) mEq/L Carbon Dioxide (23-29) mEq/L BUN (8-23) mg/dL Creatinine (0.60-1.20) mg/dL Est GFR ( Amer) (> 60) Est GFR (Non-Af Amer) (> 60) BUN/Creatinine Ratio (6-26) Glucose (70-105) mg/dL POC Glucose 104 H 98 (70-99) mg/dL Calculated Osmolality (280-300) Lactic Acid (0.5-2.2) mmol/L Calcium (8.6-10.3) mg/dL Total Bilirubin (0.3-1.0) mg/dL Direct Bilirubin (0.0-0.2) mg/dL Indirect Bilirubin (0.0-1.2) mg/dL AST (13-39) Units/L ALT (7-52) Units/L Alkaline Phosphatase (34-104) Units/L Troponin I (< 0.04) ng/mL Serum Total Protein (6.4-8.9) g/dL Albumin (3.5-5.7) g/dL Globulin (2.4-3.5) g/dL Albumin/Globulin Ratio (1.1-2.2) Urine Color (Yellow) Urine Clarity (Clear) Urine pH (5.0-8.0) pH Units Ur Specific [place] (1.010-1.025) Urine Protein (Neg-Trace) mg/dL Urine Glucose (UA) (Normal) mg/dL Urine Ketones (Negative) mg/dL Urine Blood (Negative) Urine Nitrite (Negative) Urine Bilirubin (Negative) Urine Urobilinogen (Normal) mg/dL Ur Leukocyte Esterase (Negative) Urine Microscopic RBC (0-3) per hpf Urine Microscopic WBC (0-3) per hpf Ur Squamous Epith Cells (None-Few) per lpf Urine Bacteria (None-Few) per hpf Hyaline Casts (None-Few) per lpf 09/26/18 09/26/18 09/26/18 Range/Units 08:09 08:09 09:16 WBC (4.3-11.1) K/mcL RBC (3.82-4.97) M/mcL Hgb (11.5-15.4) g/dL Hct (35.3-44.9) % MCV (83.0-100.0) fL MCH (28.0-33.3) pg MCHC (31.6-35.5) g/dL RDW (11.5-14.5) % Plt Count (140-400) K/mcL MPV (9.4-12.4) fL Immature Gran % (0-4) % Seg Neutrophils % % Lymphocytes % % Monocytes % % Eosinophils % % Basophils % % Neutrophils # (1.6-8.9) K/mcL Lymphocytes # (0.6-4.6) K/mcL Monocytes # (0.0-1.3) K/mcL Eosinophils # (0.0-0.6) K/mcL Basophils # (0.0-0.2) K/mcL PT 13.9 H (9.4-12.1) Seconds INR 1.2 Sodium 139 (136-145) mEq/L Potassium 3.1 L (3.5-5.1) mEq/L Chloride 102 (98-107) mEq/L Carbon Dioxide 31 H (23-29) mEq/L BUN 16 (8-23) mg/dL Creatinine 0.86 (0.60-1.20) mg/dL Est GFR ( Amer) > 60 (> 60) Est GFR (Non-Af Amer) > 60 (> 60) BUN/Creatinine Ratio 19 (6-26) Glucose 54 L (70-105) mg/dL POC Glucose 57 L (70-99) mg/dL Calculated Osmolality 287 (280-300) Lactic Acid (0.5-2.2) mmol/L Calcium 8.4 L (8.6-10.3) mg/dL Total Bilirubin (0.3-1.0) mg/dL Direct Bilirubin (0.0-0.2) mg/dL Indirect Bilirubin (0.0-1.2) mg/dL AST (13-39) Units/L ALT (7-52) Units/L Alkaline Phosphatase (34-104) Units/L Troponin I 0.04 H* (< 0.04) ng/mL Serum Total Protein (6.4-8.9) g/dL Albumin (3.5-5.7) g/dL Globulin (2.4-3.5) g/dL Albumin/Globulin Ratio (1.1-2.2) Urine Color (Yellow) Urine Clarity (Clear) Urine pH (5.0-8.0) pH Units Ur Specific [place] (1.010-1.025) Urine Protein (Neg-Trace) mg/dL Urine Glucose (UA) (Normal) mg/dL Urine Ketones (Negative) mg/dL Urine Blood (Negative) Urine Nitrite (Negative) Urine Bilirubin (Negative) Urine Urobilinogen (Normal) mg/dL Ur Leukocyte Esterase (Negative) Urine Microscopic RBC (0-3) per hpf Urine Microscopic WBC (0-3) per hpf Ur Squamous Epith Cells (None-Few) per lpf Urine Bacteria (None-Few) per hpf Hyaline Casts (None-Few) per lpf 09/26/18 09/26/18 09/26/18 Range/Units 09:35 10:00 10:30 WBC (4.3-11.1) K/mcL RBC (3.82-4.97) M/mcL Hgb (11.5-15.4) g/dL Hct (35.3-44.9) % MCV (83.0-100.0) fL MCH (28.0-33.3) pg MCHC (31.6-35.5) g/dL RDW (11.5-14.5) % Plt Count (140-400) K/mcL MPV (9.4-12.4) fL Immature Gran % (0-4) % Seg Neutrophils % % Lymphocytes % % Monocytes % % Eosinophils % % Basophils % % Neutrophils # (1.6-8.9) K/mcL Lymphocytes # (0.6-4.6) K/mcL Monocytes # (0.0-1.3) K/mcL Eosinophils # (0.0-0.6) K/mcL Basophils # (0.0-0.2) K/mcL PT (9.4-12.1) Seconds INR Sodium (136-145) mEq/L Potassium (3.5-5.1) mEq/L Chloride (98-107) mEq/L Carbon Dioxide (23-29) mEq/L BUN (8-23) mg/dL Creatinine (0.60-1.20) mg/dL Est GFR ( Amer) (> 60) Est GFR (Non-Af Amer) (> 60) BUN/Creatinine Ratio (6-26) Glucose (70-105) mg/dL POC Glucose 193 H 203 H 223 H (70-99) mg/dL Calculated Osmolality (280-300) Lactic Acid (0.5-2.2) mmol/L Calcium (8.6-10.3) mg/dL Total Bilirubin (0.3-1.0) mg/dL Direct Bilirubin (0.0-0.2) mg/dL Indirect Bilirubin (0.0-1.2) mg/dL AST (13-39) Units/L ALT (7-52) Units/L Alkaline Phosphatase (34-104) Units/L Troponin I (< 0.04) ng/mL Serum Total Protein (6.4-8.9) g/dL Albumin (3.5-5.7) g/dL Globulin (2.4-3.5) g/dL Albumin/Globulin Ratio (1.1-2.2) Urine Color (Yellow) Urine Clarity (Clear) Urine pH (5.0-8.0) pH Units Ur Specific [place] (1.010-1.025) Urine Protein (Neg-Trace) mg/dL Urine Glucose (UA) (Normal) mg/dL Urine Ketones (Negative) mg/dL Urine Blood (Negative) Urine Nitrite (Negative) Urine Bilirubin (Negative) Urine Urobilinogen (Normal) mg/dL Ur Leukocyte Esterase (Negative) Urine Microscopic RBC (0-3) per hpf Urine Microscopic WBC (0-3) per hpf Ur Squamous Epith Cells (None-Few) per lpf Urine Bacteria (None-Few) per hpf Hyaline Casts (None-Few) per lpf 09/26/18 09/26/18 09/26/18 Range/Units 11:10 11:32 12:14 WBC (4.3-11.1) K/mcL RBC (3.82-4.97) M/mcL Hgb (11.5-15.4) g/dL Hct (35.3-44.9) % MCV (83.0-100.0) fL MCH (28.0-33.3) pg MCHC (31.6-35.5) g/dL RDW (11.5-14.5) % Plt Count (140-400) K/mcL MPV (9.4-12.4) fL Immature Gran % (0-4) % Seg Neutrophils % % Lymphocytes % % Monocytes % % Eosinophils % % Basophils % % Neutrophils # (1.6-8.9) K/mcL Lymphocytes # (0.6-4.6) K/mcL Monocytes # (0.0-1.3) K/mcL Eosinophils # (0.0-0.6) K/mcL Basophils # (0.0-0.2) K/mcL PT (9.4-12.1) Seconds INR Sodium (136-145) mEq/L Potassium (3.5-5.1) mEq/L Chloride (98-107) mEq/L Carbon Dioxide (23-29) mEq/L BUN (8-23) mg/dL Creatinine (0.60-1.20) mg/dL Est GFR ( Amer) (> 60) Est GFR (Non-Af Amer) (> 60) BUN/Creatinine Ratio (6-26) Glucose (70-105) mg/dL POC Glucose 314 H 322 H 380 H (70-99) mg/dL Calculated Osmolality (280-300) Lactic Acid (0.5-2.2) mmol/L Calcium (8.6-10.3) mg/dL Total Bilirubin (0.3-1.0) mg/dL Direct Bilirubin (0.0-0.2) mg/dL Indirect Bilirubin (0.0-1.2) mg/dL AST (13-39) Units/L ALT (7-52) Units/L Alkaline Phosphatase (34-104) Units/L Troponin I (< 0.04) ng/mL Serum Total Protein (6.4-8.9) g/dL Albumin (3.5-5.7) g/dL Globulin (2.4-3.5) g/dL Albumin/Globulin Ratio (1.1-2.2) Urine Color (Yellow) Urine Clarity (Clear) Urine pH (5.0-8.0) pH Units Ur Specific [place] (1.010-1.025) Urine Protein (Neg-Trace) mg/dL Urine Glucose (UA) (Normal) mg/dL Urine Ketones (Negative) mg/dL Urine Blood (Negative) Urine Nitrite (Negative) Urine Bilirubin (Negative) Urine Urobilinogen (Normal) mg/dL Ur Leukocyte Esterase (Negative) Urine Microscopic RBC (0-3) per hpf Urine Microscopic WBC (0-3) per hpf Ur Squamous Epith Cells (None-Few) per lpf Urine Bacteria (None-Few) per hpf Hyaline Casts (None-Few) per lpf 09/26/18 09/26/18 09/26/18 Range/Units 14:30 14:30 14:31 WBC (4.3-11.1) K/mcL RBC (3.82-4.97) M/mcL Hgb (11.5-15.4) g/dL Hct (35.3-44.9) % MCV (83.0-100.0) fL MCH (28.0-33.3) pg MCHC (31.6-35.5) g/dL RDW (11.5-14.5) % Plt Count (140-400) K/mcL MPV (9.4-12.4) fL Immature Gran % (0-4) % Seg Neutrophils % % Lymphocytes % % Monocytes % % Eosinophils % % Basophils % % Neutrophils # (1.6-8.9) K/mcL Lymphocytes # (0.6-4.6) K/mcL Monocytes # (0.0-1.3) K/mcL Eosinophils # (0.0-0.6) K/mcL Basophils # (0.0-0.2) K/mcL PT (9.4-12.1) Seconds INR Sodium (136-145) mEq/L Potassium (3.5-5.1) mEq/L Chloride (98-107) mEq/L Carbon Dioxide (23-29) mEq/L BUN (8-23) mg/dL Creatinine (0.60-1.20) mg/dL Est GFR ( Amer) (> 60) Est GFR (Non-Af Amer) (> 60) BUN/Creatinine Ratio (6-26) Glucose (70-105) mg/dL POC Glucose 505 H* 500 H* (70-99) mg/dL Calculated Osmolality (280-300) Lactic Acid (0.5-2.2) mmol/L Calcium (8.6-10.3) mg/dL Total Bilirubin (0.3-1.0) mg/dL Direct Bilirubin (0.0-0.2) mg/dL Indirect Bilirubin (0.0-1.2) mg/dL AST (13-39) Units/L ALT (7-52) Units/L Alkaline Phosphatase (34-104) Units/L Troponin I 0.03 (< 0.04) ng/mL Serum Total Protein (6.4-8.9) g/dL Albumin (3.5-5.7) g/dL Globulin (2.4-3.5) g/dL Albumin/Globulin Ratio (1.1-2.2) Urine Color (Yellow) Urine Clarity (Clear) Urine pH (5.0-8.0) pH Units Ur Specific [place] (1.010-1.025) Urine Protein (Neg-Trace) mg/dL Urine Glucose (UA) (Normal) mg/dL Urine Ketones (Negative) mg/dL Urine Blood (Negative) Urine Nitrite (Negative) Urine Bilirubin (Negative) Urine Urobilinogen (Normal) mg/dL Ur Leukocyte Esterase (Negative) Urine Microscopic RBC (0-3) per hpf Urine Microscopic WBC (0-3) per hpf Ur Squamous Epith Cells (None-Few) per lpf Urine Bacteria (None-Few) per hpf Hyaline Casts (None-Few) per lpf 09/26/18 09/26/18 09/26/18 Range/Units 18:04 18:05 19:14 WBC (4.3-11.1) K/mcL RBC (3.82-4.97) M/mcL Hgb (11.5-15.4) g/dL Hct (35.3-44.9) % MCV (83.0-100.0) fL MCH (28.0-33.3) pg MCHC (31.6-35.5) g/dL RDW (11.5-14.5) % Plt Count (140-400) K/mcL MPV (9.4-12.4) fL Immature Gran % (0-4) % Seg Neutrophils % % Lymphocytes % % Monocytes % % Eosinophils % % Basophils % % Neutrophils # (1.6-8.9) K/mcL Lymphocytes # (0.6-4.6) K/mcL Monocytes # (0.0-1.3) K/mcL Eosinophils # (0.0-0.6) K/mcL Basophils # (0.0-0.2) K/mcL PT (9.4-12.1) Seconds INR Sodium (136-145) mEq/L Potassium (3.5-5.1) mEq/L Chloride (98-107) mEq/L Carbon Dioxide (23-29) mEq/L BUN (8-23) mg/dL Creatinine (0.60-1.20) mg/dL Est GFR ( Amer) (> 60) Est GFR (Non-Af Amer) (> 60) BUN/Creatinine Ratio (6-26) Glucose (70-105) mg/dL POC Glucose 413 H* 429 H* 408 H* (70-99) mg/dL Calculated Osmolality (280-300) Lactic Acid (0.5-2.2) mmol/L Calcium (8.6-10.3) mg/dL Total Bilirubin (0.3-1.0) mg/dL Direct Bilirubin (0.0-0.2) mg/dL Indirect Bilirubin (0.0-1.2) mg/dL AST (13-39) Units/L ALT (7-52) Units/L Alkaline Phosphatase (34-104) Units/L Troponin I (< 0.04) ng/mL Serum Total Protein (6.4-8.9) g/dL Albumin (3.5-5.7) g/dL Globulin (2.4-3.5) g/dL Albumin/Globulin Ratio (1.1-2.2) Urine Color (Yellow) Urine Clarity (Clear) Urine pH (5.0-8.0) pH Units Ur Specific [place] (1.010-1.025) Urine Protein (Neg-Trace) mg/dL Urine Glucose (UA) (Normal) mg/dL Urine Ketones (Negative) mg/dL Urine Blood (Negative) Urine Nitrite (Negative) Urine Bilirubin (Negative) Urine Urobilinogen (Normal) mg/dL Ur Leukocyte Esterase (Negative) Urine Microscopic RBC (0-3) per hpf Urine Microscopic WBC (0-3) per hpf Ur Squamous Epith Cells (None-Few) per lpf Urine Bacteria (None-Few) per hpf Hyaline Casts (None-Few) per lpf 09/26/18 09/26/18 09/27/18 Range/Units 19:15 20:33 07:08 WBC (4.3-11.1) K/mcL RBC (3.82-4.97) M/mcL Hgb (11.5-15.4) g/dL Hct (35.3-44.9) % MCV (83.0-100.0) fL MCH (28.0-33.3) pg MCHC (31.6-35.5) g/dL RDW (11.5-14.5) % Plt Count (140-400) K/mcL MPV (9.4-12.4) fL Immature Gran % (0-4) % Seg Neutrophils % % Lymphocytes % % Monocytes % % Eosinophils % % Basophils % % Neutrophils # (1.6-8.9) K/mcL Lymphocytes # (0.6-4.6) K/mcL Monocytes # (0.0-1.3) K/mcL Eosinophils # (0.0-0.6) K/mcL Basophils # (0.0-0.2) K/mcL PT (9.4-12.1) Seconds INR Sodium (136-145) mEq/L Potassium (3.5-5.1) mEq/L Chloride (98-107) mEq/L Carbon Dioxide (23-29) mEq/L BUN (8-23) mg/dL Creatinine (0.60-1.20) mg/dL Est GFR ( Amer) (> 60) Est GFR (Non-Af Amer) (> 60) BUN/Creatinine Ratio (6-26) Glucose (70-105) mg/dL POC Glucose 396 H 106 H (70-99) mg/dL Calculated Osmolality (280-300) Lactic Acid (0.5-2.2) mmol/L Calcium (8.6-10.3) mg/dL Total Bilirubin (0.3-1.0) mg/dL Direct Bilirubin (0.0-0.2) mg/dL Indirect Bilirubin (0.0-1.2) mg/dL AST (13-39) Units/L ALT (7-52) Units/L Alkaline Phosphatase (34-104) Units/L Troponin I 0.03 (< 0.04) ng/mL Serum Total Protein (6.4-8.9) g/dL Albumin (3.5-5.7) g/dL Globulin (2.4-3.5) g/dL Albumin/Globulin Ratio (1.1-2.2) Urine Color (Yellow) Urine Clarity (Clear) Urine pH (5.0-8.0) pH Units Ur Specific [place] (1.010-1.025) Urine Protein (Neg-Trace) mg/dL Urine Glucose (UA) (Normal) mg/dL Urine Ketones (Negative) mg/dL Urine Blood (Negative) Urine Nitrite (Negative) Urine Bilirubin (Negative) Urine Urobilinogen (Normal) mg/dL Ur Leukocyte Esterase (Negative) Urine Microscopic RBC (0-3) per hpf Urine Microscopic WBC (0-3) per hpf Ur Squamous Epith Cells (None-Few) per lpf Urine Bacteria (None-Few) per hpf Hyaline Casts (None-Few) per lpf 09/27/18 09/27/18 Range/Units 11:20 11:36 WBC (4.3-11.1) K/mcL RBC (3.82-4.97) M/mcL Hgb (11.5-15.4) g/dL Hct (35.3-44.9) % MCV (83.0-100.0) fL MCH (28.0-33.3) pg MCHC (31.6-35.5) g/dL RDW (11.5-14.5) % Plt Count (140-400) K/mcL MPV (9.4-12.4) fL Immature Gran % (0-4) % Seg Neutrophils % % Lymphocytes % % Monocytes % % Eosinophils % % Basophils % % Neutrophils # (1.6-8.9) K/mcL Lymphocytes # (0.6-4.6) K/mcL Monocytes # (0.0-1.3) K/mcL Eosinophils # (0.0-0.6) K/mcL Basophils # (0.0-0.2) K/mcL PT (9.4-12.1) Seconds INR Sodium (136-145) mEq/L Potassium (3.5-5.1) mEq/L Chloride (98-107) mEq/L Carbon Dioxide (23-29) mEq/L BUN (8-23) mg/dL Creatinine (0.60-1.20) mg/dL Est GFR ( Amer) (> 60) Est GFR (Non-Af Amer) (> 60) BUN/Creatinine Ratio (6-26) Glucose (70-105) mg/dL POC Glucose 159 H 127 H (70-99) mg/dL Calculated Osmolality (280-300) Lactic Acid (0.5-2.2) mmol/L Calcium (8.6-10.3) mg/dL Total Bilirubin (0.3-1.0) mg/dL Direct Bilirubin (0.0-0.2) mg/dL Indirect Bilirubin (0.0-1.2) mg/dL AST (13-39) Units/L ALT (7-52) Units/L Alkaline Phosphatase (34-104) Units/L Troponin I (< 0.04) ng/mL Serum Total Protein (6.4-8.9) g/dL Albumin (3.5-5.7) g/dL Globulin (2.4-3.5) g/dL Albumin/Globulin Ratio (1.1-2.2) Urine Color (Yellow) Urine Clarity (Clear) Urine pH (5.0-8.0) pH Units Ur Specific [place] (1.010-1.025) Urine Protein (Neg-Trace) mg/dL Urine Glucose (UA) (Normal) mg/dL Urine Ketones (Negative) mg/dL Urine Blood (Negative) Urine Nitrite (Negative) Urine Bilirubin (Negative) Urine Urobilinogen (Normal) mg/dL Ur Leukocyte Esterase (Negative) Urine Microscopic RBC (0-3) per hpf Urine Microscopic WBC (0-3) per hpf Ur Squamous Epith Cells (None-Few) per lpf Urine Bacteria (None-Few) per hpf Hyaline Casts (None-Few) per lpf
[2018-09-25 19:24] LABS: Alanine Aminotransferase 5 Units/L (7-52); Albumin/Globulin Ratio 1.4 (1.1-2.2); Alkaline Phosphatase 49 Units/L (34-104); Aspartate Amino Transferase 10 Units/L (13-39); BUN/Creatinine Ratio 17 (6-26); Bilirubin,Direct 0.1 mg/dL (0.0-0.2); Bilirubin,Indirect 0.3 mg/dL (0.0-1.2); Bilirubin,Total 0.4 mg/dL (0.3-1.0); Blood Urea Nitrogen 19 mg/dL (8-23); Calcium 9.2 mg/dL (8.6-10.3); Carbon Dioxide 36 mEq/L (23-29); Chloride 101 mEq/L (98-107); Globulin 2.2 g/dL (2.4-3.5); Glucose 216 mg/dL (70-105); Osmolality,Calculated 301 (280-300); Potassium 3.3 mEq/L (3.5-5.1); Sodium 141 mEq/L (136-145); Total Protein 5.2 g/dL (6.4-8.9); eGFR For Non-African Americans 50 (> 60)
[2018-09-25 20:36] LABS: Bilirubin,Urine Small (Negative); Blood,Urine Negative (Negative); Clarity,Urine Clear (Clear); Color,Urine Yellow (Yellow); Glucose,Urine (UA) Normal (Normal); Ketones,Urine Trace mg/dL (Negative); Leukocyte Esterase,Urine Small (Negative); Nitrite,Urine Negative (Negative); PH,Urine 6.5 pH Units (5.0-8.0); Protein,Urine Trace mg/dL (Neg-Trace); Specific Gravity,Urine 1.016 (1.010-1.025); Urobilinogen,Urine Normal (Normal)
[2018-09-25 20:38] LABS: Bacteria,Urine Few per hpf (None-Few); Hyaline Casts,Urine None Seen per lpf (None-Few); RBC,Urine 0-3 per hpf (0-3); Squamous Epithelial Cell,Urine Many per lpf (None-Few)
[2018-09-25 20:39] LABS: Troponin I 0.03 ng/mL (< 0.04)
[2018-09-25] MEDS ORDERED: Cefepime HCl 2,000 MG in Water for inj. (sterile) 20 ML 20 ML IVPB STA (21:11)
[2018-09-25] MEDS ORDERED: 0.9 % Sodium Chloride 1,000 ML IVC ONE (21:13)
--- NOTE | 2018-09-25 21:27 | Emergency Department Note ---
Disposition Clinical Impression: Hypoglycemia associated with diabetes Hypotension Qualifiers: Hypotension type: idiopathic hypotension Qualified Code(s): I95.0 - Idiopathic hypotension Disposition: Admitted As Inpatient Condition: Fair Referrals: Michel Giron MD [Primary Care Provider] - Forms: ED Satisfaction Letter Time of Disposition: 22:12 General Adult HPI - General Chief complaint: ED Altered Mental Status Stated complaint: Low Sugar Time Seen by Provider: 09/25/18 18:49 Source: patient, family, EMS Limitations: no limitations Nursing Notes Reviewed: Yes Vital Signs Reviewed: Yes - History of Present Illness Pain Scale: 0 - Related Data Home Medications Medication Instructions Recorded Confirmed Albuterol Sulfate [Ventolin Hfa] 2 puff IH Q4H PRN 10/02/17 09/25/18 Aspirin 325 mg PO DAILY 10/02/17 09/25/18 Furosemide [Lasix] 20 mg PO TID 10/02/17 09/25/18 Ipratropium/Albuterol Neb [Duoneb] 3 ml IH Q6H PRN 10/02/17 09/25/18 Lovastatin 40 mg PO HS 10/02/17 09/25/18 Oxygen 2 l NS AD 10/02/17 09/25/18 Potassium Chloride [Klor-Con 10] 5 meq PO DAILY 10/02/17 09/25/18 Fluticasone/Salmeterol [Advair 1 puff IH BID 08/08/18 09/25/18 250-50 Diskus] GlipiZIDE XL (24 HR) [Glucotrol XL] 10 mg PO DAILY 09/25/18 09/25/18 Insulin ASPART [NovoLOG] 5 unit SQ TID 09/25/18 09/25/18 Insulin Glargine,Hum.rec.anlog 5 unit SQ HS 09/25/18 09/25/18 [Basaglar Kwikpen U-100] Levalbuterol HCl [Xopenex] 1.25 mg IH Q6H 09/25/18 09/25/18 Levofloxacin [Levaquin] 750 mg PO DAILY 09/25/18 09/25/18 Lisinopril-HCTZ 20-12.5 [Prinzide 1 tab PO DAILY 09/25/18 09/25/18 20-12.5] Metoprolol Succinate [Toprol Xl] 25 mg PO DAILY 09/25/18 09/25/18 Tramadol HCl [Ultram] 50 mg PO QID PRN 09/25/18 09/25/18 Previous Rx's Medication Instructions Recorded Rivaroxaban [Xarelto] 20 mg PO DAILY #60 tablet 08/12/18 Allergies Allergy/AdvReac Type Severity Reaction Status Date / Time Penicillins [PCN] Allergy Mild Hives Verified 09/21/18 10:34 Past Medical History - Past Medical History Medical history: Reports: cancer, diabetes, hypertension, other Surgical history: Reports: appendectomy, cataract Psychiatric history: Reports: no psych history - Social History Smoking Status: 2nd Hand Smoke Exposure Smokeless Tobacco Status: No Alcohol use: Reports: none Drug use: Reports: none Physical Exam - General Limitations: no limitations General appearance: alert Course - Reevaluation(s) Reevaluation #1: Patient received in signout by the departing ED attending Dr. Johnny Loomis. Please see copy of his nose. He details of the H&P evaluation and management. Patient signed out to me at 2115. Patient who is on oral hypoglycemics and takes insulin came in with extremely low blood sugar about 12 responded well to rule out glucagon and glucose. Patient blood pressure did become hypotensive briefly at 86 responding well to fluid bolus. Patient is awake and alert patient has not been elevated white count patient never became tachycardic she never became pale or diaphoretic. Patient's lactic acid level is normal troponin negative patient is to be admitted awaiting hospitalist call back patient so informed and is resting comfortably. Time: 21:26 Reevaluation #2: Discussed case with the hospitalist on-call, Dr. BUSTOS, patient accepted for admission in stable condition Time: 22:11 Vital Signs Temperature 97.7 F 09/25/18 18:26 Pulse Rate 108 09/25/18 18:26 Respiratory Rate 18 09/25/18 18:26 Blood Pressure 105/66 09/25/18 18:26 O2 Sat by Pulse Oximetry 92 09/25/18 18:26 Temperature 97.7 F 09/25/18 18:26 Pulse Rate 87 09/25/18 21:45 Respiratory Rate 18 09/25/18 21:45 Blood Pressure 84/66 09/25/18 21:45 O2 Sat by Pulse Oximetry 99 09/25/18 21:45 Oxygen Delivery Oxygen Delivery Nasal Cannula Medical Decision Making - Lab Data Result diagrams: 09/25/18 18:38 09/25/18 18:38 Lab Results 09/25/18 09/25/18 09/25/18 Range/Units 18:38 18:38 20:19 WBC 9.4 (4.3-11.1) K/mcL RBC 3.37 L (3.82-4.97) M/mcL Hgb 11.2 L (11.5-15.4) g/dL Hct 34.0 L (35.3-44.9) % MCV 100.9 H (83.0-100.0) fL MCH 33.2 (28.0-33.3) pg MCHC 32.9 (31.6-35.5) g/dL RDW 15.3 H (11.5-14.5) % Plt Count 171 (140-400) K/mcL MPV 10.2 (9.4-12.4) fL Sodium 141 (136-145) mEq/L Potassium 3.3 L (3.5-5.1) mEq/L Chloride 101 (98-107) mEq/L Carbon Dioxide 36 H (23-29) mEq/L BUN 19 (8-23) mg/dL Creatinine 1.10 (0.60-1.20) mg/dL Est GFR ( Amer) > 60 (> 60) Est GFR (Non-Af Amer) 50 L (> 60) BUN/Creatinine Ratio 17 (6-26) Glucose 216 H (70-105) mg/dL Calculated Osmolality 301 H (280-300) Lactic Acid (0.5-2.2) mmol/L Calcium 9.2 (8.6-10.3) mg/dL Total Bilirubin 0.4 (0.3-1.0) mg/dL Direct Bilirubin 0.1 (0.0-0.2) mg/dL Indirect Bilirubin 0.3 (0.0-1.2) mg/dL AST 10 L (13-39) Units/L ALT 5 L (7-52) Units/L Alkaline Phosphatase 49 (34-104) Units/L Troponin I 0.03 (< 0.04) ng/mL Serum Total Protein 5.2 L (6.4-8.9) g/dL Albumin 3.0 L (3.5-5.7) g/dL Globulin 2.2 L (2.4-3.5) g/dL Albumin/Globulin Ratio 1.4 (1.1-2.2) Urine Color Yellow (Yellow) Urine Clarity Clear (Clear) Urine pH 6.5 (5.0-8.0) pH Units Ur Specific [place] 1.016 (1.010-1.025) Urine Protein Trace (Neg-Trace) mg/dL Urine Glucose (UA) Normal (Normal) mg/dL Urine Ketones Trace H (Negative) mg/dL Urine Blood Negative (Negative) Urine Nitrite Negative (Negative) Urine Bilirubin Small H (Negative) Urine Urobilinogen Normal (Normal) mg/dL Ur Leukocyte Esterase Small H (Negative) Urine Microscopic RBC 0-3 (0-3) per hpf Urine Microscopic WBC 3-5 H (0-3) per hpf Ur Squamous Epith Cells Many H (None-Few) per lpf Urine Bacteria Few (None-Few) per hpf Hyaline Casts None Seen (None-Few) per lpf 09/25/18 Range/Units 20:38 WBC (4.3-11.1) K/mcL RBC (3.82-4.97) M/mcL Hgb (11.5-15.4) g/dL Hct (35.3-44.9) % MCV (83.0-100.0) fL MCH (28.0-33.3) pg MCHC (31.6-35.5) g/dL RDW (11.5-14.5) % Plt Count (140-400) K/mcL MPV (9.4-12.4) fL Sodium (136-145) mEq/L Potassium (3.5-5.1) mEq/L Chloride (98-107) mEq/L Carbon Dioxide (23-29) mEq/L BUN (8-23) mg/dL Creatinine (0.60-1.20) mg/dL Est GFR ( Amer) (> 60) Est GFR (Non-Af Amer) (> 60) BUN/Creatinine Ratio (6-26) Glucose (70-105) mg/dL Calculated Osmolality (280-300) Lactic Acid 1.1 (0.5-2.2) mmol/L Calcium (8.6-10.3) mg/dL Total Bilirubin (0.3-1.0) mg/dL Direct Bilirubin (0.0-0.2) mg/dL Indirect Bilirubin (0.0-1.2) mg/dL AST (13-39) Units/L ALT (7-52) Units/L Alkaline Phosphatase (34-104) Units/L Troponin I (< 0.04) ng/mL Serum Total Protein (6.4-8.9) g/dL Albumin (3.5-5.7) g/dL Globulin (2.4-3.5) g/dL Albumin/Globulin Ratio (1.1-2.2) Urine Color (Yellow) Urine Clarity (Clear) Urine pH (5.0-8.0) pH Units Ur Specific [place] (1.010-1.025) Urine Protein (Neg-Trace) mg/dL Urine Glucose (UA) (Normal) mg/dL Urine Ketones (Negative) mg/dL Urine Blood (Negative) Urine Nitrite (Negative) Urine Bilirubin (Negative) Urine Urobilinogen (Normal) mg/dL Ur Leukocyte Esterase (Negative) Urine Microscopic RBC (0-3) per hpf Urine Microscopic WBC (0-3) per hpf Ur Squamous Epith Cells (None-Few) per lpf Urine Bacteria (None-Few) per hpf Hyaline Casts (None-Few) per lpf
[2018-09-25] MEDS ORDERED: D10% in Water 500 ML IV SOLUTION IVC STA (22:22)
--- NOTE | 2018-09-25 23:35 | Internal Med History&Physical ---
<Kentrell Negron Philip - Last Filed: 09/26/18 02:18> Date of Encounter: 09/26/18 Time of Encounter: 23:35 Internal Medicine - H&P: HPI Chief complaint: Hypoglycemia Admitted From: Home Plans for Post Hospital Care: Home History of present illness: Ms. Kumar is a 63 year old female with past medical history of DM2, HTN, and COPD on home O2. She was found unresponsive at home around 6pm this evening by her daughter. EMS checked her blood glucose level which was found to be 12. Since they were unable to obtain IV access, she was administered glucagon. Her blood glucose improved to 61 and her mental status began to improve. While in the ED the pt required 2mps of D50, and was placed on a D10% drip. She also received 1 dose of both Cefepime and Vancomycin empirically. During the encounter with this provider the pt was mentating normally. She states that for the past 3-4 days she has felt unwell with episodes of nausea and green-brown emesis each morning. Denies any fever, chills, or chest pain. States she is short of breath but at her normal baseline. She admits the same for a chronic cough. No change in sputum production or character. States her last bowel movement was approximately 5-6 days ago. Denies chronic constipation. No hematemesis, hematochezia, or melena. She states she has not grossly changed her insulin regimen and is compliant with her medications. Does admit to poor oral intake with the nausea and emesis. Denies any recent illnesses, abdominal pain, headache, numbness, or tingling. Past Med Surg Social Fam HX - Past Medical History Source: patient, old records reviewed Medical history: cancer, cardiomyopathy, CHF, COPD, diabetes, hyperlipidemia, hypertension, other Additional medical history: Lung/Throat CA Psychiatric history: no psych history - Past Surgical History Surgical History: appendectomy, cataract Additional surgical history: cardiac cath, tubal ligation - Social History Smoking Status: 2nd Hand Smoke Exposure Smokeless Tobacco Status: No Alcohol use: none Drug use: none - Family History Mother Hx Family Cancer: Yes Internal Medicine - H&P: Meds Albuterol Sulfate [Ventolin Hfa] 2 puff IH Q4H PRN 10/02/17 [History] Aspirin 325 mg PO DAILY 10/02/17 [History] Furosemide [Lasix] 20 mg PO TID 10/02/17 [History] Ipratropium/Albuterol Neb [Duoneb] 3 ml IH Q6H PRN 10/02/17 [History] Lovastatin 40 mg PO HS 10/02/17 [History] Oxygen 2 l NS AD 10/02/17 [History] Potassium Chloride [Klor-Con 10] 5 meq PO DAILY 10/02/17 [History] Fluticasone/Salmeterol [Advair 250-50 Diskus] 1 puff IH BID 08/08/18 [History] Rivaroxaban [Xarelto] 20 mg PO DAILY #60 tablet 08/12/18 [Rx] GlipiZIDE XL (24 HR) [Glucotrol XL] 10 mg PO DAILY 09/25/18 [History] Insulin ASPART [NovoLOG] 5 unit SQ TID 09/25/18 [History] Insulin Glargine,Hum.rec.anlog [Basaglar Kwikpen U-100] 5 unit SQ HS 09/25/18 [History] Levalbuterol HCl [Xopenex] 1.25 mg IH Q6H 09/25/18 [History] Levofloxacin [Levaquin] 750 mg PO DAILY 09/25/18 [History] Lisinopril-HCTZ 20-12.5 [Prinzide 20-12.5] 1 tab PO DAILY 09/25/18 [History] Metoprolol Succinate [Toprol Xl] 25 mg PO DAILY 09/25/18 [History] Tramadol HCl [Ultram] 50 mg PO QID PRN 09/25/18 [History] Allergy/AdvReac Type Severity Reaction Status Date / Time Penicillins [PCN] Allergy Mild Hives Verified 09/21/18 10:34 All Systems PM: A 10-system review of systems was performed and is negative for pertinent findings except as documented above in the HPI. - Constitutional Constitutional: anorexia, no chills, no fatigue, no fever(s), no night sweats, no weakness - EENT Eyes: no blurry vision, no change in vision, no loss of vision, no photophobia Ears: no decreased hearing, no tinnitus Nose, mouth and throat: no nasal congestion, no nasal discharge, no sinus pain, no sinus pressure - Cardiovascular Cardiovascular ROS IM: no chest pain, no diaphoresis, no dyspnea, no dyspnea on exertion, no lightheadedness, no palpitations - Respiratory Respiratory: no cough, no dyspnea, no dyspnea on exertion, no wheezing, no chest congestion, no excessive phlegm production, no change in phlegm color - Gastrointestinal Gastrointestinal: bloating, change in bowel habits, constipation, nausea, vomiting, no abdominal pain, no diarrhea, no hematemesis, no hematochezia, no loose stools, no melena - Genitourinary Genitourinary: dysuria, urinary frequency, urinary hesitancy, no flank pain, no hematuria - Musculoskeletal Musculoskeletal ROS IM: no arthralgias, no myalgias, no numbness, no tingling - Integumentary Integumentary IM: no new lesions, no unusual bruising, no jaundice - Neurological Neurological ROS: no confusion, no dizziness, no headache(s), no numbness, no tingling, no weakness - Hematologic/Lymphatic Hematologic/Lymphatic: no easy bleeding, no easy bruising - Constitutional Vitals: Temp Pulse Resp BP Pulse Ox 97.7 F 79 18 93/59 100 09/25/18 18:26 09/25/18 23:22 09/25/18 23:22 09/25/18 23:22 09/25/18 23:22 General appearance: Present: cooperative, mild distress, A&O X 3, pleasant, answers questions appropriately Exam: General: well developed obese female in mild distress Head: normocephalic and atraumatic Eyes: PERRL, EOMI, sclera anicteric, conjunctiva pink Neck: supple, trachea midline Lungs: Diffuse wheezes, mildly labored breathing on 4 lpm O2. no rales or rhonchi Heart: RRR +s1 +S2 no murmurs, clicks, or rubs GI: abdomen soft, slightly distended, non-tender. hypoactive bowel sounds Extremities: warm, radial pulses palpable and symmetrical. Right LE in brace Neuro: A&Ox3. no focal deficits. no speech difficulty or abnormality Skin: pale, dry, intact Internal Med - H&P Results - Labs CBC & Chem 7: 09/25/18 18:38 09/25/18 18:38 Labs: Short CBC 09/25/18 Range/Units 18:38 WBC 9.4 (4.3-11.1) K/mcL Hgb 11.2 L (11.5-15.4) g/dL Hct 34.0 L (35.3-44.9) % Plt Count 171 (140-400) K/mcL BMP 09/25/18 18:38 Sodium 141 Potassium 3.3 L Chloride 101 Carbon Dioxide 36 H BUN 19 Creatinine 1.10 Glucose 216 H Calcium 9.2 Cardiac Enzymes 09/25/18 Range/Units 18:38 Troponin I 0.03 (< 0.04) ng/mL Liver Function 09/25/18 Range/Units 18:38 Total Bilirubin 0.4 (0.3-1.0) mg/dL Direct Bilirubin 0.1 (0.0-0.2) mg/dL AST 10 L (13-39) Units/L ALT 5 L (7-52) Units/L Alkaline Phosphatase 49 (34-104) Units/L Albumin 3.0 L (3.5-5.7) g/dL Urine 09/25/18 Range/Units 20:19 Urine Color Yellow (Yellow) Urine Clarity Clear (Clear) Urine pH 6.5 (5.0-8.0) pH Units Ur Specific [place] 1.016 (1.010-1.025) Urine Protein Trace (Neg-Trace) mg/dL Urine Glucose (UA) Normal (Normal) mg/dL - Impressions ITS Impressions Chest X-Ray 09/25/18 19:39 IMPRESSION: 1. No acute cardiopulmonary disease. D/ / Danish Garcia MD / Danish Garcia MD Interpreting Provider: Danish Garcia MD - Assessment and plan (1) Hypoglycemia associated with diabetes Current Visit: Yes Status: Acute Assessment and plan: Initial blood glucose of 12 via EMS, pt unresponsive at that time Mentation improved and blood glucose improved to 61 after glucagon Has received 2amps of D50 and D10% drip in ED Likely related to glipizide and decreased kidney function possibly from UTI q30 min accuchecks Titrate D10% as needed, can escalate to D20% if needed prn D50 Hold home insulins and glipizide (2) MARIE (acute kidney injury) Current Visit: Yes Status: Acute Assessment and plan: Cr on admission elevated from baseline of 0.60 to 1.10 eGFR decreased to 50 Likely related to Glipizide use and UTI Receiving IV fluids Renally dose medications Hold home glipizide as above (3) COPD (chronic obstructive pulmonary disease) Current Visit: Yes Status: Chronic Assessment and plan: Not in acute exacerbation Continue home inhalers Continue home nebs prn Continue supplemental O2 to maintain SpO2 >88% Qualifiers: COPD type: emphysema Emphysema type: centrilobular Qualified Code(s): J43.2 - Centrilobular emphysema (4) Fracture of distal fibula Current Visit: Yes Status: Acute Assessment and plan: Pt had mechanical fall and was seen in ED on 09/21/18 Continue splint pain management as needed Qualifiers: Encounter type: subsequent encounter Fracture type: closed Fracture morphology: unspecified fracture morphology Laterality: right Fracture healing: with routine healing Qualified Code(s): S82.831D - Other fracture of upper and lower end of right fibula, subsequent encounter for closed fracture with routine healing (5) DVT prophylaxis Current Visit: Yes Status: Acute Assessment and plan: On Xarelto (6) UTI (urinary tract infection) Current Visit: Yes Status: Acute Assessment and plan: c/o urinary hesitancy, frequency, and dysuria for the past 4-5 days UA with small leukocyte esterase, few bacteria, and some WBC Denies suprapubic, abdominal, or flank pain Since pt is symptomatic, will treat with 1g Rocephin daily Qualifiers: Urinary tract infection type: site unspecified Hematuria presence: without hematuria Qualified Code(s): N39.0 - Urinary tract infection, site not spe cified - Time Spent With Patient Total time spent is greater than 50% in coordination of care (as documented) at patient's floor/unit and/or counseling patient: <Bernardo Rodriguez - Last Filed: 09/26/18 03:44> Date of Encounter: 09/26/18 Time of Encounter: 02:00 All Systems PM: A 10-system review of systems was performed and is negative for pertinent findings except as documented above in the HPI. - Constitutional Constitutional: anorexia, no chills, no fever(s), no night sweats - EENT Eyes: no blurry vision Nose, mouth and throat: no nasal congestion, no sore throat - Cardiovascular Cardiovascular ROS IM: no chest pain, no dyspnea - Respiratory Respiratory: no cough, no chest congestion, no excessive phlegm production - Gastrointestinal Gastrointestinal: nausea, vomiting - Genitourinary Genitourinary: dysuria, urinary frequency, urinary urgency, no hematuria - Musculoskeletal Musculoskeletal ROS IM: no muscle weakness, no myalgias - Neurological Neurological ROS: no convulsions, no dizziness, no headache(s) - Psychiatric Psychiatric: no anxiety, no depression - Allergic/Immunologic Allergic/Immunologic: no wheezing - Constitutional Vitals: Temp Pulse Resp BP Pulse Ox 97.7 F 99 19 106/72 94 09/26/18 00:02 09/26/18 00:02 09/26/18 03:33 09/26/18 00:02 09/26/18 03:33 General appearance: Present: cooperative, A&O X 3, pleasant - Head Head exam: Present: normal inspection - Eye Eye exam: Present: PERRL. Absent: scleral icterus - ENT ENT exam: Present: mucous membranes dry, normal exam, normal oropharynx - Neck Neck exam general surgery: Present: full ROM, supple. Absent: tenderness, nuchal rigidity, thyromegaly - Respiratory Respiratory exam: Present: CTAB. Absent: chest wall tenderness, rales, rhonchi, wheezes - Cardiovascular Cardiovascular exam: Present: distant heart sounds, RRR, +S1, +S2. Absent: diastolic murmur, systolic murmur - GI/Abdominal GI/Abdominal exam: Present: normal bowel sounds, soft. Absent: hepatomegaly, splenomegaly, tenderness - Extremities Exam Extremities exam: Present: warm, radial pulses palpable and symmetrical. Absent: calf tenderness, pedal edema, tenderness - Back Exam Back exam: Absent: CVA tenderness (L), CVA tenderness (R) - Neurological Exam Neurological exam: Present: alert, CN II-XII intact, oriented X3, no focal deficits Additional comments: sleepy but easily arousable and appropriate - Psychiatric Psychiatric exam: Present: normal affect, normal mood - Skin Skin exam: Present: dry, intact, warm Internal Med - H&P Results - Labs CBC & Chem 7: 09/25/18 18:38 09/25/18 18:38 Labs: Short CBC 09/25/18 Range/Units 18:38 WBC 9.4 (4.3-11.1) K/mcL Hgb 11.2 L (11.5-15.4) g/dL Hct 34.0 L (35.3-44.9) % Plt Count 171 (140-400) K/mcL BMP 09/25/18 18:38 Sodium 141 Potassium 3.3 L Chloride 101 Carbon Dioxide 36 H BUN 19 Creatinine 1.10 Glucose 216 H Calcium 9.2 Cardiac Enzymes 09/25/18 Range/Units 18:38 Troponin I 0.03 (< 0.04) ng/mL Liver Function 09/25/18 Range/Units 18:38 Total Bilirubin 0.4 (0.3-1.0) mg/dL Direct Bilirubin 0.1 (0.0-0.2) mg/dL AST 10 L (13-39) Units/L ALT 5 L (7-52) Units/L Alkaline Phosphatase 49 (34-104) Units/L Albumin 3.0 L (3.5-5.7) g/dL Urine 09/25/18 Range/Units 20:19 Urine Color Yellow (Yellow) Urine Clarity Clear (Clear) Urine pH 6.5 (5.0-8.0) pH Units Ur Specific [place] 1.016 (1.010-1.025) Urine Protein Trace (Neg-Trace) mg/dL Urine Glucose (UA) Normal (Normal) mg/dL - Impressions ITS Impressions Chest X-Ray 09/25/18 19:39 IMPRESSION: 1. No acute cardiopulmonary disease. D/ / Danish Garcia MD / Danish Garcia MD Interpreting Provider: Danish Garcia MD - Assessment and plan (1) DVT prophylaxis Current Visit: Yes Status: Acute (2) MARIE (acute kidney injury) Current Visit: Yes Status: Acute (3) COPD (chronic obstructive pulmonary disease) Current Visit: Yes Status: Chronic Qualifiers: COPD type: emphysema Emphysema type: centrilobular Qualified Code(s): J43.2 - Centrilobular emphysema (4) Fracture of distal fibula Current Visit: Yes Status: Acute Qualifiers: Encounter type: subsequent encounter Fracture type: closed Fracture morphology: unspecified fracture morphology Laterality: right Fracture healing: with routine healing Qualified Code(s): S82.831D - Other fracture of upper and lower end of right fibula, subsequent encounter for closed fracture with routine healing (5) Hypoglycemia associated with diabetes Current Visit: Yes Status: Acute (6) UTI (urinary tract infection) Current Visit: Yes Status: Acute Qualifiers: Urinary tract infection type: site unspecified Hematuria presence: without hematuria Qualified Code(s): N39.0 - Urinary tract infection, site not specif ied - Time Spent With Patient Total time spent is greater than 50% in coordination of care (as documented) at patient's floor/unit and/or counseling patient: - Attending Attestation I discussed the patient [place], past medical history, review of systems, lab data, and exam findings with Dr. Negron. I then saw and examined patient independently. I reviewed her medication list and her labs. She was sleepy but easily arousable and appropriate when I saw her. When I initially talked with the ER to begin with, her glucose was 127, but I asked him to recheck it and start dextrose drip if her glucose bottomed out. It did drop to 27 after my d iscussion with the ER. They therefore started dextrose drip per my recommendation. Since then, her glucose has been stabilizing around the 70s and 90s. I spoke with Dr. Negron and her nurse, requesting that we do hourly Accu- Cheks, and if necessary, every half hour until she has sustained euglycemia. We are going to withhold her insulin and her oral diabetic agents. We will keep her on antibiotics for possible UTI, but I am not convinced she has a true infection. We will closely monitor her and adjust her medications as necessary once her glucose stabilizes and improves. Other than my comments above and noted exam findings, I agree with Dr. Negron's assessment and plan.
[2018-09-26] MEDS ORDERED: Ondansetron 4 MG/2 ML VIAL IVP PRN ×2 (00:21→09:14)
[2018-09-26] MEDS ORDERED: Naloxone 0.4 MG/ML INJ IVP PRN (00:21)
[2018-09-26] MEDS ORDERED: traMADol 50 MG TABLET PO PRN (00:29)
[2018-09-26] MEDS ORDERED: Ipratropium/Albuterol Neb 3 ML IH PRN (00:29)
[2018-09-26] MEDS ORDERED: *HR* Dextrose 50 % in Water (Syg) 50 ML SYRINGE IVP ONE ×2 (01:18→04:05)
[2018-09-26] MEDS: *HR* Dextrose 50 % in Water (Syg) 50 ML SYRINGE IVP ONE ×2 (01:23→01:25)
[2018-09-26] MEDS: Levalbuterol Neb 1.25 MG/3 ML IH SCH ×4 (03:33→22:38)
[2018-09-26] MEDS ORDERED: D10% in Water 500 ML IV SOLUTION IVC SCH (04:15)
[2018-09-26] MEDS: D10% in Water 500 ML IVC SCH ×4 (04:19→18:06)
[2018-09-26] MEDS: Aspirin 325 MG TABLET PO SCH (07:53)
[2018-09-26] MEDS ORDERED: Octreotide 50 MCG/ML SYRINGE IVP ONE ×2 (07:54→09:39)
[2018-09-26] MEDS ORDERED: Furosemide 20 MG TABLET PO SCH (08:00)
[2018-09-26] MEDS ORDERED: 0.9 % Sodium Chloride 1,000 ML IVC SCH (08:00)
[2018-09-26] MEDS: Piperacillin/Tazobactam 3.375 GM in 0.9 % Sodium Chloride Mini Bag 100 ML IVPB SCH ×3 (08:20→23:29)
[2018-09-26] MEDS ORDERED: 0.9 % Sodium Chloride 250 ML IVC ONE (08:21)
--- NOTE | 2018-09-26 08:25 | Internal Med Progress Note ---
Hospitalist Progress Note - Encounter Date of Encounter: 09/26/18 Time of Encounter: 08:37 - Subjective Interval History: I have seen and evaluated the patient at bedside. patient found to be hypotensive, BP ranging in the low 90s-80s SBP. Patient complaining of chest pain 6/10. denies shortness of breath or lightheadedness. also denied abdominal pain, nausea or vomiting. - Exam Vitals: Temp Pulse Resp BP Pulse Ox 98.5 F 107 17 73/46 95 09/26/18 07:19 09/26/18 07:19 09/26/18 07:19 09/26/18 07:19 09/26/18 07:19 Exam: Vitals: reviewed. General: Alert and oriented x4. In mild distress due to chest pain. Skin: Dry oral mucosa. Normal color, no rash, no lesions. HEENT: EOM, pupils equal, round and reactive. Cardiovascular: RRR, Normal S1 & S2, no rubs, murmurs or gallops. Lungs: CTA b/l, no wheezes or crackles. Abdomen: Obese, Soft, non-tender, no rigidity. NABS in all 4 quadrants. Extremities: No deformity, no edema or tenderness, no joint swelling or clubbing. Neurological: Normal cognition and motor skills. Rest of the physical exam is non contributory - Assessment and Plan (1) Hypotension Current Visit: Yes Status: Acute Assessment and Plan: unclear etiology sepsis cannot be excluded. r/O PE, Pulm HNT Plan dc antihypertensive medications 250mls of NS bolus started on NS@75mls/hr d/c ceftriaxone will broaden antibiotics coverage started on piperacillin/tazobactam 3.375mg/IV Q8HRs stat labs, cbc, bmp, mag, phosp blood culture sent. (2) Hypoglycemia associated with diabetes Current Visit: Yes Status: Resolved Assessment and Plan: possible due to sulfunilurea. in the setting of low PO intake over the past 2 days. an infectious source cannot be excluded yet Decrease D10W to 50mls/hr give Octreotide 50mcg SuBQ x1 as patient is on glipiziede continue accu-checks Q1HR encourage PO intake (3) COPD (chronic obstructive pulmonary disease) Current Visit: Yes Status: Chronic Assessment and Plan: not on acute exacerbation. chest is clear to aoscultation b/l. continue bronchodilators PRN on symbicort (4) Fracture of distal fibula Current Visit: Yes Status: Chronic Assessment and Plan: tramadol 50mg/PO Q6HR PRN for pain control. (5) UTI (urinary tract infection) Current Visit: Yes Status: Suspected Assessment and Plan: patient on IV antibiotics. (6) Chest pain Current Visit: Yes Status: Acute Assessment and Plan: patient complaining of retro-sternal chest pain. aspirin 325mg/PO x1 given serial trops 12 lead EKG ordered telemetry monitoring Patient in on an oral anticoagulant will continue Cardiology has been consulted. nitro 0.4mg SubL Q5min x3 for chest pain (7) Non-small cell lung cancer Current Visit: Yes Status: Chronic Assessment and Plan: per hem&Onc note She completed radiotherapy 09/03/18. outpatient follow up. 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 (9) Pulmonary embolism Current Visit: No Status: Chronic Assessment and Plan: continue ribaroxaban 15mg/PO daily. (10) MARIE (acute kidney injury) Current Visit: Yes Status: Resolved (11) Left bundle branch block (LBBB) Current Visit: Yes Status: Chronic (12) Chronic hypoxemic respiratory failure Current Visit: Yes Status: Chronic Assessment and Plan: Patient is on 4 L of oxygen by nasal cannula at home. Continue oxygen supplementation, titrate for O2 sat duration more than 92%. DVT Prophylaxis: patient on an oral anticoagulant due to hx of PE. - Summary of Assessment and Plan Summary of Assessment and Plan: Patient to remain in the hospital due to hypotension. Hypoglycemia. - Time Spent with Patient Total time spent is greater than 50% in coordination of care (as documented) at patient's floor/unit and/or counseling patient: Greater than 35 minutes (50) Plan of Care Discussed with: patient (and the nurse.) Internal Medicine: Result - Labs CBC & Chem 7: 09/26/18 08:09 09/26/18 08:09 Labs: Short CBC 09/25/18 Range/Units 18:38 WBC 9.4 (4.3-11.1) K/mcL Hgb 11.2 L (11.5-15.4) g/dL Hct 34.0 L (35.3-44.9) % Plt Count 171 (140-400) K/mcL BMP 09/25/18 18:38 Sodium 141 Potassium 3.3 L Chloride 101 Carbon Dioxide 36 H BUN 19 Creatinine 1.10 Glucose 216 H Calcium 9.2 Cardiac Enzymes 09/25/18 Range/Units 18:38 Troponin I 0.03 (< 0.04) ng/mL Liver Function 09/25/18 Range/Units 18:38 Total Bilirubin 0.4 (0.3-1.0) mg/dL Direct Bilirubin 0.1 (0.0-0.2) mg/dL AST 10 L (13-39) Units/L ALT 5 L (7-52) Units/L Alkaline Phosphatase 49 (34-104) Units/L Albumin 3.0 L (3.5-5.7) g/dL Urine 09/25/18 Range/Units 20:19 Urine Color Yellow (Yellow) Urine Clarity Clear (Clear) Urine pH 6.5 (5.0-8.0) pH Units Ur Specific [place] 1.016 (1.010-1.025) Urine Protein Trace (Neg-Trace) mg/dL Urine Glucose (UA) Normal (Normal) mg/dL - Impressions Impressions Chest X-Ray 09/25/18 19:39 IMPRESSION: 1. No acute cardiopulmonary disease. D/ / Danish Garcia MD / Danish Garcia MD Interpreting Provider: Danish Garcia MD Consult Discharge Plan - Plan Referrals: Michel Giron MD [Primary Care Provider] - 10/02/18 1:15 pm (Please follow up as schedule....) (1) Hypotension Qualifiers: Hypotension type: idiopathic hypotension Qualified Code(s): I95.0 - Idiopathic hypotension (3) COPD (chronic obstructive pulmonary disease) Qualifiers: COPD type: emphysema Emphysema type: centrilobular Qualified Code(s): J43.2 - Centrilobular emphysema (4) Fracture of distal fibula Qualifiers: Encounter type: subsequent encounter Fracture type: closed Fracture morphology: unspecified fracture morphology Laterality: right Fracture healing: with routine healing Qualified Code(s): S82.831D - Other fracture of upper and lower end of right fibula, subsequent encounter for closed fracture with routine healing (5) UTI (urinary tract infection) Qualifiers: Urinary tract infection type: site unspecified Hematuria presence: without hematuria Qualified Code(s): N39.0 - Urinary tract infection, site not specified (6) Chest pain Qualifiers: Chest pain type: unspecified Qualified Code(s): R07.9 - Chest pain, un specified (7) Non-small cell lung cancer Qualifiers: Laterality: unspecified laterality Qualified Code(s): C34.90 - Malignant neoplasm of unspecified part of unspecified bronchus or lung (9) Pulmonary embolism Qualifiers: Pulmonary embolism type: unspecified Chronicity: chronic Acute cor pulmonale presence: without acute cor pulmonale Qualified Code(s): I27.82 - Chronic pulmonary embolism
[2018-09-26] MEDS ORDERED: Nitroglycerin 0.4 MG TAB.SUBL SL PRN (08:34)
[2018-09-26 08:52] LABS: INR 1.2; Prothrombin Time 13.9 Seconds (9.4-12.1)
[2018-09-26] MEDS ORDERED: Lisinopril-HCTZ 20-12.5mg TABLET PO SCH (09:00)
[2018-09-26] MEDS ORDERED: Metoprolol XL (24 HR) Succ 25 MG TAB.ER.24H PO SCH (09:00)
[2018-09-26] MEDS ORDERED: cefTRIAXone 1,000 MG in Water for inj. (sterile) 20 ML 10 ML IVP SCH (09:00)
[2018-09-26] MEDS ORDERED: *HR* Rivaroxaban 10 MG TABLET PO SCH (09:00)
[2018-09-26 09:04] LABS: Basophils % 0.5 %; Eosinophils # 0.1 K/mcL (0.0-0.6); Eosinophils % 0.8 %; Hematocrit 35.6 % (35.3-44.9); Hemoglobin 11.2 g/dL (11.5-15.4); Immature Granulocytes % 0.3 % (0-4); Lymphocytes # 0.6 K/mcL (0.6-4.6); Lymphocytes % 9.6 %; Mean Corpuscular HGB Conc 31.5 g/dL (31.6-35.5); Mean Corpuscular Hemoglobin 33.1 pg (28.0-33.3); Mean Corpuscular Volume 105.3 fL (83.0-100.0); Mean Platelet Volume 10.6 fL (9.4-12.4); Monocytes # 0.4 K/mcL (0.0-1.3); Monocytes % 5.8 %; Neutrophils # 5.3 K/mcL (1.6-8.9); Platelet Count 135 K/mcL (140-400); Red Blood Count 3.38 M/mcL (3.82-4.97); Red Cell Distribution Width 15.4 % (11.5-14.5)
[2018-09-26] MEDS ORDERED: *HR* Dextrose 50 % in Water (Syg) 50 ML SYRINGE ONE (09:19)
[2018-09-26 09:21] LABS: BUN/Creatinine Ratio 19 (6-26); Blood Urea Nitrogen 16 mg/dL (8-23); Calcium 8.4 mg/dL (8.6-10.3); Carbon Dioxide 31 mEq/L (23-29); Chloride 102 mEq/L (98-107); Glucose 54 mg/dL (70-105); Osmolality,Calculated 287 (280-300); Potassium 3.1 mEq/L (3.5-5.1); Sodium 139 mEq/L (136-145); eGFR For Non-African Americans > 60 (> 60)
[2018-09-26 09:35] LABS: Troponin I 0.04 ng/mL (< 0.04)
[2018-09-26] MEDS ORDERED: Budesonide/Formoterol 80/4.5 MDI IH SCH (10:00)
[2018-09-26] MEDS: Budesonide/Formoterol 80/4.5 MDI IH SCH ×2 (10:39→22:41)
[2018-09-26] MEDS ORDERED: Isovue-370 500 ML INFUS..BTL IV ONE (12:30)
--- NOTE | 2018-09-26 13:59 | Cardiology Consult Note ---
Addendum entered and electronically signed by Dudley Valentino MD 09/26/18 15:48: I have personally performed a face to face evaluation on this patient. I have reviewed and agree with the care plan. History and Exam by me shows: Multiple medical problems. Chest pain is very atypical, likely chest wall pain. No further cardiac workup needed Original Note: Date of Encounter: 09/26/18 Time of Encounter: 14:29 Assessment and Plan (1) Chest pain Current Visit: No Status: Acute Pt with intermittent chest pressure ongoing for 2 days. Pain is reproducible. Possible muscle skeletal pain after fall. Pt also fell a few weeks ago fracturing her ribs. Troponin 0.03, 0.04. Non-diagnostic in setting of severe hypoglycemia and hypotension. EKG with LBBB, SR. Not new. TTE 07/2018- LVEF 50-55%. Mild concentric left ventricular hypertrophy. Normal right ventricular structure. There is no pericardial effusion present. Moderate pulmonary hypertension as evidenced by D shaped left ventricle in short axis. TTE this admission shows EF 55%. No LV WMA. Mild LVH, mild diastolic dysf, mild RV dilation and hypokenesis, Severe pulmonary hypertension. Do not suspect ACS. Treat muscle skeletal pain. Continue asa and statin. Restart bb once b/p improves. Please call with changes or questions. Qualifiers: Chest pain type: precordial pain Qualified Code(s): R07.2 - Precordial pain (2) Pulmonary hypertension Current Visit: No Status: Acute Severe pulmonary HTN. Previously known PAH. C/o COPD, recent PE, and lung ca. Pulmonology consulted. (3) CAD (coronary artery disease) Current Visit: Yes Status: Chronic H/o mild CAD on [facility] in 2009. Continue asa and statin. Restart bb when able. Qualifiers: Coronary Disease-Associated Artery/Lesion type: [place] artery [place] vs. transplanted heart: [place] heart Associated angina: angina presence unspecified Qualified Code(s): I25.10 - Atherosclerotic heart disease of [place] coronary artery without angina pectoris Discussion w patient/family: The assessment and plan as outlined above was discussed with the patient and/or family members who expressed understanding and agreement. All questions were answered. Thank you for involving us in the care of your patient. Please call with any questions. History of Present Illness Consult date: 09/26/18 Requesting physician: Yo Fajardo Consult reason: chest pain Chief complaint: Loss of conciousness, chest pain. History of present illness: Ms. 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 She presents from home after being found with loss of consciousness. She was found to be severely hypoglycemic with blood sugar of 12. Cardiology consulted for chest pain. Pt was hospitalized a few weeks ago after mechanical fall at home and developing right foot fracture and rib fractures. She was also diagnosed with PE and placed on xarelto. She c/o chest pain starting two days prior to this hospitalization. The pain occurs at rest and feels like a midsternal pressure. The pain increases with movement or cough. The pain is reproducible on my exam. AFter my exam she was transferred to ICU for on-going hypotension. Repeat CTA was negative for PE. There was findings suggestive of atelectasis/ PNA. Prior cardiac testing: ECG 09/2017: Sinus bradycrdia, HR 59. Leftward axis. LBBB. TTE 02/04/2017: LVEF 55%. Normal LV size and function. RV mildly dilated with normal function. Mild TR. severe pHTN. [facility] 2009: Nonobstructive CAD. TTE 01/2014, EF 55%. Mild concentric LVH. No valvular dysfunction. Pharmacological nuclear stress test 02/2014: Negative for ischemia or prior infarct. Past Med Surg Social Fam HX - Past Medical History Medical history: cancer, cardiomyopathy, CHF, COPD, diabetes, hyperlipidemia, hypertension, other Additional medical history: Lung/Throat CA Psychiatric history: no psych history - Past Surgical History Surgical History: appendectomy, cataract Additional surgical history: cardiac cath, tubal ligation - Social History Smoking Status: 2nd Hand Smoke Exposure Smokeless Tobacco Status: No Alcohol use: none Drug use: none - Family History Mother Hx Family Cancer: Yes Medications and Allergies Albuterol Sulfate [Ventolin Hfa] 2 puff IH Q4H PRN 10/02/17 [History] Aspirin 325 mg PO DAILY 10/02/17 [History] Furosemide [Lasix] 20 mg PO TID 10/02/17 [History] Ipratropium/Albuterol Neb [Duoneb] 3 ml IH Q6H PRN 10/02/17 [History] Lovastatin 40 mg PO HS 10/02/17 [History] Oxygen 2 l NS AD 10/02/17 [History] Potassium Chloride [Klor-Con 10] 5 meq PO DAILY 10/02/17 [History] Fluticasone/Salmeterol [Advair 250-50 Diskus] 1 puff IH BID 08/08/18 [History] Rivaroxaban [Xarelto] 20 mg PO DAILY #60 tablet 08/12/18 [Rx] GlipiZIDE XL (24 HR) [Glucotrol XL] 10 mg PO DAILY 09/25/18 [History] Insulin ASPART [NovoLOG] 5 unit SQ TID 09/25/18 [History] Insulin Glargine,Hum.rec.anlog [Basaglar Kwikpen U-100] 5 unit SQ HS 09/25/18 [History] Levalbuterol HCl [Xopenex] 1.25 mg IH Q6H 09/25/18 [History] Levofloxacin [Levaquin] 750 mg PO DAILY 09/25/18 [History] Lisinopril-HCTZ 20-12.5 [Prinzide 20-12.5] 1 tab PO DAILY 09/25/18 [History] Metoprolol Succinate [Toprol Xl] 25 mg PO DAILY 09/25/18 [History] Tramadol HCl [Ultram] 50 mg PO QID PRN 09/25/18 [History] Allergy/AdvReac Type Severity Reaction Status Date / Time Penicillins [PCN] Allergy Mild Hives Verified 09/21/18 10:34 All Systems Review: The remainder of the systems were reviewed and are negative Physical Examination Vital Signs, Last 4 Hours Temp Pulse Resp BP Pulse Ox 09/26/18 12:16 75/45 09/26/18 11:18 20 93 09/26/18 11:13 98.0 F 112 22 80/40 91 09/26/18 10:40 20 93 09/26/18 10:28 98.0 F 104 22 75/50 93 09/26/18 10:15 98.5 F 99 22 87/55 97 09/26/18 10:03 98.5 F 100 18 92/56 95 General: Conversant, No Apparent Distress HEENT: Atraumatic, Normocephaly, Mucus Membranes Moist Neck: No JVD, Normal carotid pulses Cardiac: Reg Rate and Rhythm, Normal S1 and S2, No Murmur Lungs: Other (WHeezes and rhonci scattered throughout. ) Neuro: Alert and responsive, No focal deficits noted Abdomen: Soft, Non-Tender Skin: No rashes noted on visualized skin Musculoskeletal: Other (Chest wall and abdomen with reproducible chest pain. ) Extremities: No Clubbing, No Cyanosis, No Edema, Normal Pulses Results 09/26/18 08:09 09/26/18 08:09 Lab Results 09/25/18 09/25/18 09/26/18 18:38 18:38 08:09 WBC 9.4 6.4 Hgb 11.2 L 11.2 L Hct 34.0 L 35.6 Plt Count 171 135 L INR Sodium 141 Potassium 3.3 L Chloride 101 Carbon Dioxide 36 H BUN 19 Creatinine 1.10 Glucose 216 H Calcium 9.2 Total Bilirubin 0.4 AST 10 L ALT 5 L Alkaline Phosphatase 49 Troponin I 0.03 09/26/18 09/26/18 08:09 08:09 WBC Hgb Hct Plt Count INR 1.2 Sodium 139 Potassium 3.1 L Chloride 102 Carbon Dioxide 31 H BUN 16 Creatinine 0.86 Glucose 54 L Calcium 8.4 L Total Bilirubin AST ALT Alkaline Phosphatase Troponin I 0.04 H* - Imaging and Cardiology Echo: report reviewed - EKG Interpretation EKG results cardiology: personally reviewed Consult Discharge Plan - Plan Referrals: Michel Giron MD [Primary Care Provider] - 10/02/18 1:15 pm (Please follow up as schedule....)
--- NOTE | 2018-09-26 14:09 | Pulmonology Consult Note ---
<Jerald Guzman S - Last Filed: 09/26/18 15:49> Date of Encounter: 09/26/18 Time of Encounter: 14:09 Assessment and Plan (1) Hypotension Current Visit: Yes Likely related to infxn vs poor PO intake (hypovolemic) vs cardiogenic - moved to ICU this afternoon for closer monitoring - unclear what the exact etiology is at this time SBP's in high 80's, MAP of 64 ECHO showed LVEF 50-55%, severe pHTN, mild diastolic dysfxn CT negative for acute PE Troponin (-) at 0.03 Plan: - pt was given a 250cc bolus of NS - increased IVF to 0.9% NS 125cc/hr gentle hydration bc pt has severe pHTN - pt recieving 2 bags albumin - continue abx on vancomycin and zosyn day 1 - blood cx, urine cx, sputum cx pending - legionella and strep pneumo antigens pending - d/c antiHTN rx at this time - continue to monitor BP in ICU in case of need for vasopressors Qualifiers: Hypotension type: unspecified hypotension type Qualified Code(s): I95.9 - Hypotension, unspecified (2) Pneumonia Current Visit: No Status: Acute Likely bacterial, possibly related to aspiration CT of chest done today (09/26) showed - no evidence for acute PE - worsening patchy bibasilar consolidation with trace pleural effusion atelectasis vs pneumonia Pt currently does not meet sepsis criteria Plan: - continue broad spectrum abx, on vanc and zosyn day 1 - legionella/strep pneumo antigens pending - sputum cx pending - blood cx pending - pt being seen by speech therapy, they recommend pureed diet/honey thickened liquid pt adament about having a regular diet - continue symbicort - continue bronchodilators Qualifiers: Pneumonia type: due to unspecified organism Laterality: bilateral Lung location: unspecified part of lung Qualified Code(s): J18.9 - Pneumonia, unspecified organism (3) Hypoglycemia associated with diabetes Current Visit: Yes Status: Resolved Resolved. - likely secondary to sulfonurea use and decrease PO intake (4) COPD (chronic obstructive pulmonary disease) Current Visit: Yes Status: Chronic See plan as above. Not in acute exacerbation. Qualifiers: COPD type: emphysema Emphysema type: centrilobular Qualified Code(s): J43.2 - Centrilobular emphysema (5) Chronic hypoxemic respiratory failure Current Visit: Yes Status: Chronic On 4L home oxygen - currently requiring 7L oxygen to remain at 94% o2 (6) Diastolic heart failure Current Visit: No Status: Acute Pt c/o retrosternal chest pain - nonradiating, crushing pain - denies previous DC , had LHC in 2009 As evidenced on ECHO, LVEF 50-55% with mild diastolic dysfxn Troponin 0.03 --> 0.04 --> 0.03 Plan: - continue ASA/statin - currently beta amelie held secondary to hypotension, plan to restart when BP stable - cardiology consulted - strict I&O - daily weights - catheter inserted by ICU nursing staff Qualifiers: Heart failure chronicity: acute on chronic Qualified Code(s): I50.33 - Acute on chronic diastolic (congestive) heart failure (7) Pulmonary hypertension, moderate to severe Current Visit: Yes Status: Acute As seen on ECHO on 09/26 - plan for outpatient follow up if pt wishes to persue aggressive management History of Present Illness Consult date: 09/26/18 Requesting physician: Yo Fajardo Reason for consult: other (hypotension) Chief complaint: low blood sugar History of present illness: Ms. Kumar is a 63yo female with PMH of lung cancer, CHF, COPD on 4L, T2DM, SOL, and HLD. She was admitted on 09/25 after being found unresponsive at home. She states that her BG was found to be 12 and that she had been "acting funny" for a few days. She didn't feel well and had decreased her appetite. She has also had some chest pain, retrosternal in location x 3 days. She denies ever having a heart attack or previous cardiac problems. She was a fci smoker 2ppd, quit in 2016. Denies pets at home. Denies wo rkplace exposure and is currently on disability. She is consulted to critical care for hypotension. Pt was moved to ICU for further evaluation and monitoring of low blood pressure. Past Med Surg Social Fam HX - Past Medical History Medical history: cancer, cardiomyopathy, CHF, COPD, diabetes, hyperlipidemia, hypertension, other Additional medical history: Lung/Throat CA Psychiatric history: no psych history - Past Surgical History Surgical History: appendectomy, cataract Additional surgical history: cardiac cath, tubal ligation - Social History Smoking Status: 2nd Hand Smoke Exposure Smokeless Tobacco Status: No Alcohol use: none Drug use: none - Family History Mother Hx Family Cancer: Yes Medications and Allergies RX: Albuterol Sulfate [Ventolin Hfa] 2 puff IH Q4H PRN 10/02/17 [History] RX: Aspirin 325 mg PO DAILY 10/02/17 [History] RX: Furosemide [Lasix] 20 mg PO TID 10/02/17 [History] RX: Ipratropium/Albuterol Neb [Duoneb] 3 ml IH Q6H PRN 10/02/17 [History] RX: Lovastatin 40 mg PO HS 10/02/17 [History] RX: Oxygen 2 l NS AD 10/02/17 [History] RX: Potassium Chloride [Klor-Con 10] 5 meq PO DAILY 10/02/17 [History] RX: Fluticasone/Salmeterol [Advair 250-50 Diskus] 1 puff IH BID 08/08/18 [ History] Rivaroxaban [Xarelto] 20 mg PO DAILY #60 tablet 08/12/18 [Rx] GlipiZIDE XL (24 HR) [Glucotrol XL] 10 mg PO DAILY 09/25/18 [History] Insulin ASPART [NovoLOG] 5 unit SQ TID 09/25/18 [History] Insulin Glargine,Hum.rec.anlog [Basaglar Kwikpen U-100] 5 unit SQ HS 09/25/18 [History] Levalbuterol HCl [Xopenex] 1.25 mg IH Q6H 09/25/18 [History] Levofloxacin [Levaquin] 750 mg PO DAILY 09/25/18 [History] Metoprolol Succinate [Toprol Xl] 25 mg PO DAILY 09/25/18 [History] RX: Lisinopril-HCTZ 20-12.5 [Prinzide 20-12.5] 1 tab PO DAILY 09/25/18 [History] Tramadol HCl [Ultram] 50 mg PO QID PRN 09/25/18 [History] Allergy/AdvReac Type Severity Reaction Status Date / Time Penicillins [PCN] Allergy Mild Hives Verified 09/21/18 10:34 All Systems: The remainder of the systems were reviewed and are negative - Constitutional Constitutional: no chills, no fatigue, no fever(s) - Cardiovascular Cardiovascular: chest pain, chest pain at rest, chest pain with activity, dyspnea, dyspnea on exertion, no diaphoresis - Respiratory Respiratory: cough, dyspnea, dyspnea on exertion, excessive phlegm production - Gastrointestinal Gastrointestinal: no abdominal pain, no diarrhea, no hematemesis, no nausea, no vomiting - Musculoskeletal Musculoskeletal: arthralgias, no numbness, no tingling - Neurological Neurological: no headache(s), no numbness, no tingling - Hematologic/Lymphatic Hematologic/Lymphatic: no easy bleeding, no easy bruising Physical Examination Vital Signs: Vital Signs, Last 4 Hours Temp Pulse Resp BP Pulse Ox 09/26/18 12:16 75/45 09/26/18 11:18 20 93 09/26/18 11:13 98.0 F 112 22 80/40 91 09/26/18 10:40 20 93 09/26/18 10:28 98.0 F 104 22 75/50 93 09/26/18 10:15 98.5 F 99 22 87/55 97 General appearance: no acute distress, alert Eyes: nonicteric ENT: oropharynx moist Effort: mildly labored Inspection: normal Auscultation: bilateral: diminished breath sounds, wheezes Cardiovascular: other (tacycardic) Gastrointestinal: soft, non-tender, non-distended Integumentary: normal Extremities: edema normal mental status, non-focal exam mood appropriate, affect normal Results - Laboratory Findings CBC and BMP: 09/26/18 08:09 09/26/18 08:09 PT/INR, D-dimer PT 13.9 Seconds (9.4-12.1) H 09/26/18 08:09 Abnormal lab findings: Abnormal lab results RBC 3.38 M/mcL (3.82-4.97) L 09/26/18 08:09 Hgb 11.2 g/dL (11.5-15.4) L 09/26/18 08:09 MCV 105.3 fL (83.0-100.0) H 09/26/18 08:09 MCHC 31.5 g/dL (31.6-35.5) L 09/26/18 08:09 RDW 15.4 % (11.5-14.5) H 09/26/18 08:09 Plt Count 135 K/mcL (140-400) L 09/26/18 08:09 PT 13.9 Seconds (9.4-12.1) H 09/26/18 08:09 Potassium 3.1 mEq/L (3.5-5.1) L 09/26/18 08:09 Carbon Dioxide 31 mEq/L (23-29) H 09/26/18 08:09 Glucose 54 mg/dL (70-105) L 09/26/18 08:09 POC Glucose 380 mg/dL (70-99) H 09/26/18 12:14 Calcium 8.4 mg/dL (8.6-10.3) L 09/26/18 08:09 AST 10 Units/L (13-39) L 09/25/18 18:38 ALT 5 Units/L (7-52) L 09/25/18 18:38 Troponin I 0.04 ng/mL (< 0.04) H* 09/26/18 08:09 Serum Total Protein 5.2 g/dL (6.4-8.9) L 09/25/18 18:38 Albumin 3.0 g/dL (3.5-5.7) L 09/25/18 18:38 Globulin 2.2 g/dL (2.4-3.5) L 09/25/18 18:38 Urine Ketones Trace mg/dL (Negative) H 09/25/18 20:19 Urine Bilirubin Small (Negative) H 09/25/18 20:19 Ur Leukocyte Esterase Small (Negative) H 09/25/18 20:19 Urine Microscopic WBC 3-5 per hpf (0-3) H 09/25/18 20:19 Ur Squamous Epith Cells Many per lpf (None-Few) H 09/25/18 20:19 - Microbiology Findings Microbiology Findings: Microbiology, Last 48 Hours 09/25/18 20:38 Blood Culture - Preliminary Peripheral Venipuncture Culture is incubating and being continuously monitored for growth. Final report to follow. 09/25/18 20:38 Blood Culture - Preliminary Peripheral Venipuncture Culture is incubating and being continuously monitored for growth. Final report to follow. - Clinical Findings Intake & Output: Intake & Output 09/25/18 09/26/18 09/26/18 23:59 07:59 15:59 Intake Total 2019 750 / 750 893 / 893 Balance 2019 750 / 750 893 / 893 Weight 78.018 kg 83.3 kg Consult Discharge Plan - Plan Referrals: Michel Giron MD [Primary Care Provider] - 10/02/18 1:15 pm (Please follow up as schedule....) <Ok Morales - Last Filed: 09/27/18 08:27> Date of Encounter: 09/27/18 All Systems: The remainder of the systems were reviewed and are negative Physical Examination Vital Signs: Vital Signs, Last 4 Hours Temp Pulse Resp BP Pulse Ox 09/26/18 12:16 75/45 09/26/18 11:18 20 93 09/26/18 11:13 98.0 F 112 22 80/40 91 Results - Laboratory Findings CBC and BMP: 09/26/18 08:09 09/26/18 08:09 PT/INR, D-dimer PT 13.9 Seconds (9.4-12.1) H 09/26/18 08:09 Abnormal lab findings: Abnormal lab results RBC 3.38 M/mcL (3.82-4.97) L 09/26/18 08:09 Hgb 11.2 g/dL (11.5-15.4) L 09/26/18 08:09 MCV 105.3 fL (83.0-100.0) H 09/26/18 08:09 MCHC 31.5 g/dL (31.6-35.5) L 09/26/18 08:09 RDW 15.4 % (11.5-14.5) H 09/26/18 08:09 Plt Count 135 K/mcL (140-400) L 09/26/18 08:09 PT 13.9 Seconds (9.4-12.1) H 09/26/18 08:09 Potassium 3.1 mEq/L (3.5-5.1) L 09/26/18 08:09 Carbon Dioxide 31 mEq/L (23-29) H 09/26/18 08:09 Glucose 54 mg/dL (70-105) L 09/26/18 08:09 POC Glucose 380 mg/dL (70-99) H 09/26/18 12:14 Calcium 8.4 mg/dL (8.6-10.3) L 12/14/18 08:09 AST 10 Units/L (13-39) L 09/25/18 18:38 ALT 5 Units/L (7-52) L 09/25/18 18:38 Troponin I 0.04 ng/mL (< 0.04) H* 09/26/18 08:09 Serum Total Protein 5.2 g/dL (6.4-8.9) L 09/25/18 18:38 Albumin 3.0 g/dL (3.5-5.7) L 09/25/18 18:38 Globulin 2.2 g/dL (2.4-3.5) L 09/25/18 18:38 Urine Ketones Trace mg/dL (Negative) H 09/25/18 20:19 Urine Bilirubin Small (Negative) H 09/25/18 20:19 Ur Leukocyte Esterase Small (Negative) H 09/25/18 20:19 Urine Microscopic WBC 3-5 per hpf (0-3) H 09/25/18 20:19 Ur Squamous Epith Cells Many per lpf (None-Few) H 09/25/18 20:19 - Microbiology Findings Microbiology Findings: Microbiology, Last 48 Hours 09/25/18 20:38 Blood Culture - Preliminary Peripheral Venipuncture Culture is incubating and being continuously monitored for growth. Final report to follow. 09/25/18 20:38 Blood Culture - Preliminary Peripheral Venipuncture Culture is incubating and being continuously monitored for growth. Final report to follow. - Clinical Findings Intake & Output: Intake & Output 09/25/18 09/26/18 09/26/18 23:59 07:59 15:59 Intake Total 2019 750 / 750 893 / 893 Balance 2019 750 / 750 893 / 893 Weight 78.018 kg 83.3 kg - Attending Attestation I examined this patient and my medical decision-making was reviewed with the Resident Physician. I agree with the documented findings, disposition and treatment plan as described except to the extent set forth below. Patient seen and examined. Labs, radiology, chart personally reviewed. I was called by primary care hospitalist to evaluate this patient for ICU transfer due to persistent hypertension. 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 Cardiovascular: It is not clear if her hypotension is hypovolemia versus sepsis versus cardiogenic. Patient is going to have echocardiogram. Since patient remained hypotensive patient will be transferred to ICU in case she needs vasopressors GI: Nutrition per dietary and GI prophylaxis per routine Heme: DVT prophylaxis per routine ID: Continue antibiotics and plan to de-escalation. Sepsis is less likely since blood cell count is normal and lactic acid is not elevated, however sepsis remained in the differential diagnosis and workup was initiated. Due to the echo finding abnormalities mainly pulmonary pressure is elevated fluid resuscitation as to be gentle. Renal; urine out put and renal funtion reviewed. They suspect with more aggressive volume resuscitation blood pressure will improve. Endorcine: blood glucose is monitored Lines: all lines checked and no evidence of infections Skin: skin care to prevent pressure ulcers per nursing routine care Past with the family at the bedside. Discussed with the primary team and thank you for consultation and patient will be monitored in ICU carefully if no change in clinical status then she can be transferred back to .
--- NOTE | 2018-09-26 15:41 | Electrocardiograph Report ---
[address] [place], [place] [address] Test Date: 2018-09-26 Pat Name: Michelle Kumar Department: 109 Room: [facility] Gender: F Extension Supervisor: : 1955 Requested By: Yo Fajardo Order Number: [id number] Reading MD: Andre Schultz Measurements Intervals [place] Rate: 104 P: 39 FL: 159 QRS: 106 QRSD: 169 T: -50 QT: 411 QTc: 471 Interpretive Statements SINUS TACHYCARDIA MARKED RIGHT AXIS DEVIATION INTRAVENTRICULAR CONDUCTION DELAY Electronically Signed On 09-26-2018 15:39:59 EST by Andre Schultz
[2018-09-26] MEDS ORDERED: Dextrose Gel 15 GM/37.5 ML TUBE PO PRN ×2 (16:30)
[2018-09-26] MEDS ORDERED: *HR* Dextrose 50 % in Water (Syg) 50 ML SYRINGE IVP PRN (16:30)
[2018-09-26] MEDS ORDERED: D5% in Water 1,000 ML IVC PRN (16:30)
[2018-09-26] MEDS: *HR* Rivaroxaban 15 MG TABLET PO SCH (19:35)
[2018-09-26] MEDS: Insulin LISPRO 300 UNITS/3 ML VIAL SQ SCH ×2 (19:35→19:44)
[2018-09-26] MEDS: Ringers Solution, Lactated 1,000 ML IVC SCH (19:36)
[2018-09-27] MEDS: D10% in Water 500 ML IVC SCH ×2 (03:04→14:24)
[2018-09-27] MEDS: Ringers Solution, Lactated 1,000 ML IVC SCH (03:04)
[2018-09-27] MEDS: Levalbuterol Neb 1.25 MG/3 ML IH SCH ×4 (04:45→22:36)
[2018-09-27] MEDS: Insulin LISPRO 300 UNITS/3 ML VIAL SQ SCH ×4 (07:19→20:49)
[2018-09-27] MEDS: Piperacillin/Tazobactam 3.375 GM in 0.9 % Sodium Chloride Mini Bag 100 ML IVPB SCH ×2 (07:23→16:19)
[2018-09-27] MEDS: Aspirin 325 MG TABLET PO SCH (07:24)
--- NOTE | 2018-09-27 07:32 | Pulmonology Progress Note ---
<CarmenOk M - Last Filed: 09/27/18 08:56> Date of Encounter: 09/27/18 Objective PUL Vital signs: Last Vital Signs Temp 99.0 F 09/27/18 08:33 Pulse 111 09/27/18 08:19 Resp 18 09/27/18 08:19 BP 118/68 09/27/18 08:19 Pulse Ox 94 09/27/18 08:19 Results - Laboratory Findings CBC and BMP: 09/26/18 08:09 09/26/18 08:09 PT/INR, D-dimer PT 13.9 Seconds (9.4-12.1) H 09/26/18 08:09 Abnormal lab findings: Abnormal lab results RBC 3.38 M/mcL (3.82-4.97) L 09/26/18 08:09 Hgb 11.2 g/dL (11.5-15.4) L 09/26/18 08:09 MCV 105.3 fL (83.0-100.0) H 09/26/18 08:09 MCHC 31.5 g/dL (31.6-35.5) L 09/26/18 08:09 RDW 15.4 % (11.5-14.5) H 09/26/18 08:09 Plt Count 135 K/mcL (140-400) L 09/26/18 08:09 PT 13.9 Seconds (9.4-12.1) H 09/26/18 08:09 Potassium 3.1 mEq/L (3.5-5.1) L 09/26/18 08:09 Carbon Dioxide 31 mEq/L (23-29) H 09/26/18 08:09 Glucose 54 mg/dL (70-105) L 09/26/18 08:09 POC Glucose 396 mg/dL (70-99) H 09/26/18 19:15 Calcium 8.4 mg/dL (8.6-10.3) L 09/26/18 08:09 AST 10 Units/L (13-39) L 09/25/18 18:38 ALT 5 Units/L (7-52) L 09/25/18 18:38 Serum Total Protein 5.2 g/dL (6.4-8.9) L 09/25/18 18:38 Albumin 3.0 g/dL (3.5-5.7) L 09/25/18 18:38 Globulin 2.2 g/dL (2.4-3.5) L 09/25/18 18:38 Urine Ketones Trace mg/dL (Negative) H 09/25/18 20:19 Urine Bilirubin Small (Negative) H 09/25/18 20:19 Ur Leukocyte Esterase Small (Negative) H 09/25/18 20:19 Urine Microscopic WBC 3-5 per hpf (0-3) H 09/25/18 20:19 Ur Squamous Epith Cells Many per lpf (None-Few) H 09/25/18 20:19 - Microbiology Findings Microbiology Findings: Microbiology, Last 48 Hours 09/26/18 19:45 Legionella Antigen - Final Urine,Catheterized Streptococcus pneumoniae Antigen (M - Final 09/25/18 20:38 Blood Culture - Preliminary Peripheral Venipuncture Culture is incubating and being continuously monit ored for growth. Final report to follow. 09/25/18 20:38 Blood Culture - Preliminary Peripheral Venipuncture Culture is incubating and being continuously monitored for growth. Final report to follow. - Clinical Findings Intake & Output: Intake & Output 09/26/18 09/27/18 09/27/18 23:59 07:59 15:59 Intake Total 350 / 350 1100 / 1100 240 / 240 Output Total 650 / 650 475 / 475 200 / 200 Balance -300 / -300 625 / 625 40 / 40 Weight 84 kg Consult Discharge Plan - Plan Referrals: Michel Giron MD [Primary Care Provider] - 10/02/18 1:15 pm (Please follow up as schedule....) - Attending Attestation I examined this patient and my medical decision-making was reviewed with the Resident Physician. I agree with the documented findings, disposition and treatment plan as described except to the extent set forth below. Patient seen and examined. Labs, radiology, chart personally reviewed. Agree with resident's history and physical, assessment, plan with following comments: PATIENT OBSERVATION ASSISTANT: Patient follows commands, Pulmonary: Acceptable oxygenation and ventilation. Patient will need a follow- up for her underlying pulmonary disease. Bronchodilators as needed. CT chest showed possibly pneumonia. Cardiovascular: Blood pressure has been stable after resuscitation in ICU. GI: Nutrition per dietary and GI prophylaxis per routine Heme: DVT prophylaxis per routine ID: Continue antibiotics and plan to de-escalation. Continue empiric antibiotics and de-escalate based on the cultures. Renal; urine out put and renal funtion reviewed Endorcine: blood glucose is monitored Lines: all lines checked and no evidence of infections Skin: skin care to prevent pressure ulcers per nursing routine care Thank you for consultation please call for any questions. <Joycelyn Anguiano - Last Filed: 09/27/18 10:19> Date of Encounter: 09/27/18 Time of Encounter: 07:50 Assessment and Plan (1) Hypotension Current Visit: Yes Status: Resolved Likely related to infxn vs poor PO intake (hypovolemic) vs cardiogenic - moved to ICU yesterday for closer monitoring - unclear what the exact etiology is at this time SBP's in high 80's, MAP of 64 ECHO showed LVEF 50-55%, severe pHTN, mild diastolic dysfxn CT negative for acute PE Troponin (-) at 0.03 - pt was given a 250cc bolus of NS - increased IVF to 0.9% NS 125cc/hr gentle hydration bc pt has severe pHTN - pt was given 2 bags albumin Blood pressure stable at 100s-110s/60s-70s. - continue abx on vancomycin and zosyn day 2 - blood cx, urine cx, sputum cx pending - continue to hold antiHTN rx at this time - stable after ICU care. Transfer back to . Qualifiers: Hypotension type: idiopathic hypotension Qualified Code(s): I95.0 - Idiopathic hypotension (2) Pneumonia Current Visit: No Status: Acute Likely bacterial, possibly related to aspiration CT of chest 09/26 showed - no evidence for acute PE - worsening patchy bibasilar consolidation with trace pleural effusion atelectasis vs pneumonia Pt currently does not meet sepsis criteria Legionella and Strep pneumo antigens are negative. Plan: - continue broad spectrum abx, on vanc and zosyn day 2 - sputum cx pending - blood cx pending - pt seen by speech therapy, they recommend pureed diet/honey thickened liquid pt refuses recommended diet, adamant about having a regular diet - continue symbicort - continue bronchodilators Qualifiers: Pneumonia type: due to unspecified organism Laterality: bilateral Lung location: unspecified part of lung Qualified Code(s): J18.9 - Pneumonia, unspecified organism (3) Hypoglycemia associated with diabetes Current Visit: Yes Status: Resolved Resolved. - likely secondary to sulfonurea use and decrease PO intake (4) COPD (chronic obstructive pulmonary disease) Current Visit: Yes Status: Chronic See plan as above. Not in acute exacerbation. Qualifiers: COPD type: emphysema Emphysema type: centrilobular Qualified Code(s): J43.2 - Centrilobular emphysema (5) Chronic hypoxemic respiratory failure Current Visit: Yes Status: Chronic On 4L home oxygen - was requiring 7L oxygen to remain at 94% o2 Now back to baseline 4L. (6) Diastolic heart failure Current Visit: No Status: Acute Pt c/o retrosternal chest pain - nonradiating, crushing pain - denies previous LA, had LHC in 2009 As evidenced on ECHO, LVEF 50-55% with mild diastolic dysfxn Troponin 0.03 --> 0.04 --> 0.03 Plan: - continue ASA/statin - currently beta amelie held secondary to hypotension, plan to restart when BP stable - strict I&O - daily weights - catheter inserted by ICU nursing staff. Remove ramirez prior to transfer. Qualifiers: Heart failure chronicity: acute on chronic Qualified Code(s): I50.33 - Acute on chronic diastolic (congestive) heart failure (7) Pulmonary hypertension Current Visit: No Status: Acute As seen on ECHO on 09/26 - plan for outpatient follow up if pt wishes to pursue aggressive management Subjective Interval history: Patient seen and examined. No acute events overnight. Patient is resting comfortably in bed watching TV. Denies any complaints. States shes a little hungry. Blood pressure is stable and patient is clinically improved. Will transfer out of ICU to back into the care of Dr. Del Valle. Dr. Del Valle was made aware of transfer. Objective PUL Vital signs: Last Vital Signs Temp 99.0 F 09/27/18 07:00 Pulse 106 09/27/18 07:00 Resp 18 09/27/18 07:00 BP 122/78 09/27/18 07:00 Pulse Ox 95 09/27/18 07:00 Gen: Vitals noted. Patient appears in no acute distress. Eyes: anicteric sclerae, moist conjunctivae; no lid-lag; Pupils equal and reactive to light HENT: Atraumatic; oropharynx clear with moist mucous membranes and no mucosal ulcerations; normal hard and soft palate Neck: Trachea midline; supple Cardiac: RRR, no murmur, +S1/S2 Pulmonary: clear to auscultation. Normal effort, no respiratory distress. Abdomen: soft, nontender, no guarding. No masses or hepatosplenomegaly MSK: ROM intact, no joint swelling noted Extremities: No edema, nontender calf, no cyanosis or clubbing Skin: Normal temperature, turgor and texture; no rash, ulcers or subcutaneous nodules. Neuro: moves all extremities, no focal deficits. Results - Laboratory Findings CBC and BMP: 09/26/18 08:09 09/26/18 08:09 PT/INR, D-dimer PT 13.9 Seconds (9.4-12.1) H 09/26/18 08:09 Abnormal lab findings: Abnormal lab results RBC 3.38 M/mcL (3.82-4.97) L 09/26/18 08:09 Hgb 11.2 g/dL (11.5-15.4) L 09/26/18 08:09 MCV 105.3 fL (83.0-100.0) H 09/26/18 08:09 MCHC 31.5 g/dL (31.6-35.5) L 09/26/18 08:09 RDW 15.4 % (11.5-14.5) H 09/26/18 08:09 Plt Count 135 K/mcL (140-400) L 09/26/18 08:09 PT 13.9 Seconds (9.4-12.1) H 09/26/18 08:09 Potassium 3.1 mEq/L (3.5-5.1) L 09/26/18 08:09 Carbon Dioxide 31 mEq/L (23-29) H 09/26/18 08:09 Glucose 54 mg/dL (70-105) L 09/26/18 08:09 POC Glucose 396 mg/dL (70-99) H 09/26/18 19:15 Calcium 8.4 mg/dL (8.6-10.3) L 09/26/18 08:09 AST 10 Units/L (13-39) L 09/25/18 18:38 ALT 5 Units/L (7-52) L 09/25/18 18:38 Serum Total Protein 5.2 g/dL (6.4-8.9) L 09/25/18 18:38 Albumin 3.0 g/dL (3.5-5.7) L 09/25/18 18:38 Globulin 2.2 g/dL (2.4-3.5) L 09/25/18 18:38 Urine Ketones Trace mg/dL (Negative) H 09/25/18 20:19 Urine Bilirubin Small (Negative) H 09/25/18 20:19 Ur Leukocyte Esterase Small (Negative) H 09/25/18 20:19 Urine Microscopic WBC 3-5 per hpf (0-3) H 09/25/18 20:19 Ur Squamous Epith Cells Many per lpf (None-Few) H 09/25/18 20:19 - Microbiology Findings Microbiology Findings: Microbiology, Last 48 Hours 09/26/18 19:45 Legionella Antigen - Final Urine,Catheterized Streptococcus pneumoniae Antigen (M - Final 09/25/18 20:38 Blood Culture - Preliminary Peripheral Venipuncture Culture is incubating and being continuously monitored for growth. Final report to follow. 09/25/18 20:38 Blood Culture - Preliminary Peripheral Venipuncture Culture is incubating and being continuously monitor ed for growth. Final report to follow. - Clinical Findings Intake & Output: Intake & Output 09/26/18 09/26/18 09/27/18 15:59 23:59 07:59 Intake Total 1143 / 1143 350 / 350 1100 / 1100 Output Total 400 / 400 650 / 650 475 / 475 Balance 743 / 743 -300 / -300 625 / 625 Weight 84 kg
[2018-09-27] MEDS: Budesonide/Formoterol 80/4.5 MDI IH SCH ×2 (09:32→22:37)
[2018-09-27] MEDS: *HR* Rivaroxaban 15 MG TABLET PO SCH (16:20)
[2018-09-28] MEDS: D10% in Water 500 ML IVC SCH ×2 (00:30→11:24)
[2018-09-28] MEDS: Piperacillin/Tazobactam 3.375 GM in 0.9 % Sodium Chloride Mini Bag 100 ML IVPB SCH ×3 (00:35→16:20)
[2018-09-28] MEDS: Levalbuterol Neb 1.25 MG/3 ML IH SCH ×4 (04:54→21:48)
--- NOTE | 2018-09-28 08:31 | Internal Med Progress Note ---
<Phil Mason - Last Filed: 09/28/18 12:53> Hospitalist Progress Note - Encounter Date of Encounter: 09/28/18 Time of Encounter: 08:31 - Subjective Interval History: Patient admitted for hypotension, differential including poor intake, infection, cardiac etiology. She was managed in the ICU with assertive fluids and has im proved. She will be transferred to floor when bed is available. She is also being treated for pneumonia. She has no complaints this AM and nursing reported no events overnight. - Exam Vitals: Temp Pulse Resp BP Pulse Ox 98.2 F 110 22 123/84 98 09/28/18 07:47 09/28/18 06:00 09/28/18 06:00 09/28/18 06:00 09/28/18 06:00 Exam: Gen: Vitals noted. Patient appears in no acute distress. Eyes: anicteric sclerae, moist conjunctivae; no lid-lag; Pupils equal and reactive to light HENT: Atraumatic; oropharynx clear with moist mucous membranes and no mucosal ulcerations; normal hard and soft palate Neck: Trachea midline; supple Cardiac: RRR, no murmur, +S1/S2 Pulmonary: end expiratory wheeze. Normal effort, no respiratory distress. Abdomen: soft, nontender, no guarding. No masses or hepatosplenomegaly MSK: ROM intact, no joint swelling noted Extremities: No edema, nontender calf, no cyanosis or clubbing Skin: Normal temperature, turgor and texture; no rash, ulcers or subcutaneous n odules. Neuro: moves all extremities, no focal deficits. - Assessment and Plan (1) Hypotension Current Visit: Yes Status: Resolved Assessment and Plan: Differential includes infection vs poor PO intake (hypovolemic) vs cardiogenic ECHO showed LVEF 50-55%, severe pHTN, mild diastolic dysfxn, CT negative for acute PE, Troponin (-) at 0.03 Moved to ICU Saturday for closer monitoring, increased IVF to 0.9% NS 125cc/hr, pt was given 2 bags albumin BP now stable 123/84, continue to hold antiHTN rx at this time stable after ICU care. Transfer back to . Continue fluids and monitoring BP (2) Pneumonia Current Visit: No Status: Acute Assessment and Plan: Likely bacterial, possibly related to aspiration, atelectasis vs pneumonia CT of chest 09/26 showed no evidence for acute PE, worsening patchy bibasilar consolidation with trace pleural effusion Pt currently does not meet sepsis criteria, Legionella and Strep pneumo antigens are negative. Plan: - continue broad spectrum abx, on vanc and zosyn day 3 - sputum cx pending, blood cx pending - pt seen by speech therapy, they recommend pureed diet/honey thickened liquid, pt refuses recommended diet, adamant about having a regular diet - continue symbicort - continue bronchodilators (3) COPD (chronic obstructive pulmonary disease) Current Visit: Yes Status: Chronic Assessment and Plan: not on acute exacerbation. continue bronchodilators Xopenex due to tachycardia (4) Pulmonary embolism Current Visit: No Status: Chronic Assessment and Plan: continue ribaroxaban 15mg/PO daily. (5) Fracture of distal fibula Current Visit: Yes Status: Chronic Assessment and Plan: tramadol 50mg/PO Q6HR PRN for pain control. (6) Hypoglycemia associated with diabetes Current Visit: Yes Status: Resolved Assessment and Plan: possible due to sulfonurea use in the setting of low PO intake over the past 2 days. resolved Patient currently on SQ humalog TIDAC and HS glucose stable (7) Non-small cell lung cancer Current Visit: Yes Status: Chronic Assessment and Plan: per hem&Onc note She completed radiotherapy 09/03/18. outpatient follow up. 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 (9) Chronic hypoxemic respiratory failure Current Visit: Yes Status: Chronic Assessment and Plan: Patient is on 4 L of oxygen by nasal cannula at home. Continue oxygen supple mentation, titrate for O2 sat duration more than 92%. (10) Pulmonary hypertension, moderate to severe Current Visit: Yes Status: Acute Assessment and Plan: As seen on ECHO on 09/26 - plan for outpatient follow up if pt wishes to pursue aggressive management (11) Diastolic heart failure Current Visit: No Status: Chronic Assessment and Plan: Pt c/o retrosternal chest pain on admission, resolved History of HF, LVEF 50-55% with mild diastolic dysfxn Troponin 0.03 --> 0.04 --> 0.03 this admission Plan: - continue ASA/statin - currently beta amelie held secondary to hypotension, plan to restart when BP stable - strict I&O - daily weights DVT Prophylaxis: Xarelto - Time Spent with Patient Total time spent is greater than 50% in coordination of care (as documented) at patient's floor/unit and/or counseling patient: Internal Medicine: Result - Labs CBC & Chem 7: 09/28/18 09:32 09/28/18 09:32 - ABG Interpretation ABG results: PT/INR, D-dimer PT 13.9 Seconds (9.4-12.1) H 09/26/18 08:09 Consult Discharge Plan - Plan Referrals: Michel Giron MD [Primary Care Provider] - 10/02/18 1:15 pm (Please follow up as schedule....) <Hortencia Orourke - Last Filed: 09/28/18 13:27> Hospitalist Progress Note - Encounter Date of Encounter: 09/28/18 - Exam Vitals: Temp Pulse Resp BP Pulse Ox 97.9 F 113 20 122/89 97 09/28/18 11:00 09/28/18 12:00 09/28/18 12:00 09/28/18 12:00 09/28/18 12:00 - Assessment and Plan (1) MARIE (acute kidney injury) Current Visit: Yes Status: Resolved (2) COPD (chronic obstructive pulmonary disease) Current Visit: Yes Status: Chronic (3) Pulmonary embolism Current Visit: No Status: Chronic (4) Fracture of distal fibula Current Visit: Yes Status: Chronic (5) Hypoglycemia associated with diabetes Current Visit: Yes Status: Resolved (6) Hypotension Current Visit: Yes Status: Resolved (7) UTI (urinary tract infection) Current Visit: Yes Status: Suspected (8) Chest pain Current Visit: Yes Status: Acute (9) Non-small cell lung cancer Current Visit: Yes Status: Chronic (10) 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 (11) Left bundle branch block (LBBB) Current Visit: Yes Status: Chronic (12) Chronic hypoxemic respiratory failure Current Visit: Yes Status: Chronic - Time Spent with Patient Total time spent is greater than 50% in coordination of care (as documented) at patient's floor/unit and/or counseling patient: Internal Medicine: Result - Labs CBC & Chem 7: 09/28/18 09:32 09/28/18 09:32 Labs: Short CBC 09/28/18 Range/Units 09:32 WBC 5.2 (4.3-11.1) K/mcL Hgb 11.4 L (11.5-15.4) g/dL Hct 35.3 (35.3-44.9) % Plt Count 156 (140-400) K/mcL Neutrophils # 4.1 (1.6-8.9) K/mcL BMP 09/28/18 09:32 Sodium 144 Potassium 4.1 Chloride 109 H Carbon Dioxide 32 H BUN 9 Creatinine 0.86 Glucose 161 H Calcium 8.4 L - ABG Interpretation ABG results: PT/INR, D-dimer PT 13.9 Seconds (9.4-12.1) H 09/26/18 08:09 - Attending Attestation I examined this patient and my medical decision-making was reviewed with the Resident Physician Dr Mason. I agree with the documented findings, disposi tion and treatment plan as described except to the extent set forth below. Ms Kumar was admitted with pna and hypotension which has improved with more aggressive than previous fluids Now transferring out of ICU to floor. awake, in bed, no sob on o2 nc, + cough, green sputum, + wheezing, no fevers, cholls, n/v. no chest pain gen- alert, awake,appears stated age eyes- pupils equal round cv- reg rate and rhythm, normal s1,s2, no murmurs appreciated, no le edema lungs- ctabl, diffuse exp wheezing,no rhonchi or crackles, normal resp effort on o2 nc abd- soft, non tender, non distended, + bs neuro- AAOx3 Hypotension- resolved, off ivfs and cont bp monitoring Pna organism ulnown- cont vanc + zosyn, she refuses comber tender rec diet and is demanding regular diet despite knowing asp risk PE on AC Non small cell lung cancer/squam cell carcinoma of glottis- fu with outp onc Hx Fibula fracture - prn pain control further diagnoses and treatment as noted by resident <Phil Mason - Last Filed: 09/28/18 12:53> (1) Hypotension Qualifiers: Hypotension type: idiopathic hypotension Qualified Code(s): I95.0 - Idiopathic hypotension (2) Pneumonia Qualifiers: Pneumonia type: due to unspecified organism Laterality: bilateral Lung location: unspecified part of lung Qualified Code(s): J18.9 - Pneumonia, unspecified organism (3) COPD (chronic obstructive pulmonary disease) Qualifiers: COPD type: emphysema Emphysema type: centrilobular Qualified Code(s): J43.2 - Centrilobular emphysema (4) Pulmonary embolism Qualifiers: Pulmonary embolism type: unspecified Chronicity: chronic Acute cor pulmonale presence: without acute cor pulmonale Qualified Code(s): I27.82 - Chronic pulmonary embolism (5) Fracture of distal fibula Qualifiers: Encounter type: subsequent encounter Fracture type: closed Fracture morphology: unspecified fracture morphology Laterality: right Fracture healing: with routine healing Qualified Code(s): S82.831D - Other fracture of upper and lower end of right fibula, subsequent encounter for closed fracture with routine healing (7) Non-small cell lung cancer Qualifiers: Laterality: unspecified laterality Qualified Code(s): C34.90 - Malignant neoplasm of unspecified part of unspecified bronchus or lung (11) Diastolic heart failure Qualifiers: Heart failure chronicity: acute on chronic Qualified Code(s): I50.33 - Acute on chronic diastolic (congestive) heart failure <Hortencia Orourke - Last Filed: 09/28/18 13:27> (2) COPD (chronic obstructive pulmonary disease) Qualifiers: COPD type: emphysema Emphysema type: centrilobular Qualified Code(s): J43.2 - Centrilobular emphysema (3) Pulmonary embolism Qualifiers: Pulmonary embolism type: unspecified Chronicity: chronic Acute cor pulmonale presence: without acute cor pulmonale Qualified Code(s): I27.82 - Chronic pulmonary embolism (4) Fracture of distal fibula Qualifiers: Encounter type: subsequent encounter Fracture type: closed Fracture morphology: unspecified fracture morphology Laterality: right Fracture healing: with routine healing Qualified Code(s): S82.831D - Other fracture of upper and lower end of right fibula, subsequent encounter for closed fracture with routine healing (6) Hypotension Qualifiers: Hypotension type: idiopathic hypotension Qualified Code(s): I95.0 - Idiopathic hypotension (7) UTI (urinary tract infection) Qualifiers: Urinary tract infection type: site unspecified Hematuria presence: without hematuria Qualified Code(s): N39.0 - Urinary tract infection, site not specified (8) Chest pain Qualifiers: Chest pain type: unspecified Qualified Code(s): R07.9 - Chest pain, unspecified (9) Non-small cell lung cancer Qualifiers: Laterality: unspecified laterality Qualified Code(s): C34.90 - Malignant neoplasm of unspecified part of unspecified bronchus or lung
[2018-09-28] MEDS: Budesonide/Formoterol 80/4.5 MDI IH SCH ×2 (09:21→21:48)
[2018-09-28] MEDS: Insulin LISPRO 300 UNITS/3 ML VIAL SQ SCH ×4 (09:22→20:25)
[2018-09-28] MEDS: Aspirin 325 MG TABLET PO SCH (09:24)
[2018-09-28 09:41] LABS: Basophils % 0.6 %; Eosinophils # 0.1 K/mcL (0.0-0.6); Eosinophils % 1.7 %; Hematocrit 35.3 % (35.3-44.9); Hemoglobin 11.4 g/dL (11.5-15.4); Immature Granulocytes % 0.4 % (0-4); Lymphocytes # 0.7 K/mcL (0.6-4.6); Lymphocytes % 12.9 %; Mean Corpuscular HGB Conc 32.3 g/dL (31.6-35.5); Mean Corpuscular Hemoglobin 33.7 pg (28.0-33.3); Mean Corpuscular Volume 104.4 fL (83.0-100.0); Mean Platelet Volume 9.5 fL (9.4-12.4); Monocytes # 0.3 K/mcL (0.0-1.3); Monocytes % 6.4 %; Neutrophils # 4.1 K/mcL (1.6-8.9); Platelet Count 156 K/mcL (140-400); Red Blood Count 3.38 M/mcL (3.82-4.97); Red Cell Distribution Width 15.2 % (11.5-14.5)
[2018-09-28 10:00] LABS: BUN/Creatinine Ratio 10 (6-26); Blood Urea Nitrogen 9 mg/dL (8-23); Calcium 8.4 mg/dL (8.6-10.3); Carbon Dioxide 32 mEq/L (23-29); Chloride 109 mEq/L (98-107); Glucose 161 mg/dL (70-105); Osmolality,Calculated 300 (280-300); Potassium 4.1 mEq/L (3.5-5.1); Sodium 144 mEq/L (136-145); eGFR For Non-African Americans > 60 (> 60)
[2018-09-28] MEDS ORDERED: Calcium Gluconate 2,000 MG in 0.9 % Sodium Chloride 100 ML IVPB ONE (10:27)
[2018-09-28] MEDS ORDERED: D5% in Water 1,000 ML IVC PRN (13:46)
[2018-09-28] MEDS ORDERED: traMADol 50 MG TABLET PO PRN (13:46)
[2018-09-28] MEDS ORDERED: Dextrose Gel 15 GM/37.5 ML TUBE PO PRN ×2 (13:46)
[2018-09-28] MEDS ORDERED: *HR* Dextrose 50 % in Water (Syg) 50 ML SYRINGE IVP PRN (13:46)
[2018-09-28] MEDS ORDERED: Naloxone 0.4 MG/ML INJ IVP PRN (13:46)
[2018-09-28] MEDS ORDERED: Ondansetron 4 MG/2 ML VIAL IVP PRN (13:46)
[2018-09-28] MEDS ORDERED: Nitroglycerin 0.4 MG TAB.SUBL SL PRN (13:46)
[2018-09-28] MEDS ORDERED: Ipratropium/Albuterol Neb 3 ML IH PRN (13:46)
[2018-09-28] MEDS ORDERED: D10% in Water 500 ML IVC SCH (13:46)
[2018-09-28] MEDS ORDERED: *HR* Rivaroxaban 15 MG TABLET PO SCH (17:00)
[2018-09-29] MEDS: Piperacillin/Tazobactam 3.375 GM in 0.9 % Sodium Chloride Mini Bag 100 ML IVPB SCH ×3 (00:54→16:17)
[2018-09-29] MEDS: Levalbuterol Neb 1.25 MG/3 ML IH SCH ×4 (03:05→21:34)
[2018-09-29] MEDS ORDERED: Calcium Gluconate 2,000 MG in 0.9 % Sodium Chloride 100 ML IVPB ONE (07:43)
[2018-09-29] MEDS ORDERED: Aminoglycoside Consult 1 EACH MC ONE (08:31)
[2018-09-29] MEDS: Aspirin 325 MG TABLET PO SCH (08:39)
[2018-09-29] MEDS: Insulin LISPRO 300 UNITS/3 ML VIAL SQ SCH ×4 (08:40→20:31)
--- NOTE | 2018-09-29 09:58 | Internal Med Progress Note ---
<Wendy Brown R - Last Filed: 09/29/18 12:54> Hospitalist Progress Note - Encounter Date of Encounter: 09/29/18 Time of Encounter: 08:45 - Subjective Interval History: Pt seen and examined at bedside. Reports is feeling much better. Denies CP, dyspnea. Reports occasional dizzyness and occasional productive cough Nurse reports no overnight events. - Exam Vitals: Temp Pulse Resp BP Pulse Ox 98.0 F 106 18 119/78 96 09/29/18 06:49 09/29/18 06:49 09/29/18 06:49 09/29/18 06:49 09/29/18 06:49 Exam: Gen: Vitals noted. Patient appears in no acute distress. Eyes: no lid-lag; EOMI HENT: Atraumatic; normocephalic Neck: Trachea midline; supple Cardiac: RRR, no murmurs appreciated, +S1/S2 Pulmonary: Normal effort, no respiratory distress.No wheezing Abdomen: soft, nontender, no guarding. Skin: Normal temperature, turgor and texture; no rash, ulcers or subcutaneous nodules Neuro: moves all extremities, no focal deficits. - Assessment and Plan (1) Hypotension Current Visit: Yes Status: Acute Assessment and Plan: Differential includes infection vs poor PO intake (hypovolemic) vs cardiogenic ECHO showed LVEF 50-55%, severe pHTN, mild diastolic dysfxn, CT negative for acute PE, Troponin (-) at 0.03 Moved to ICU Saturday for closer monitoring, increased IVF to 0.9% NS 125cc/hr, pt was given 2 bags albumin BP now stable 123/84, continue to hold antiHTN rx at this time stable after ICU care. Transfer back to . Fluids stopped Continue monitoring BP (2) Pneumonia Current Visit: No Status: Acute Assessment and Plan: Likely bacterial, possibly related to aspiration, atelectasis vs pneumonia CT of chest 09/26 showed no evidence for acute PE, worsening patchy bibasilar consolidation with trace pleural effusion Pt currently does not meet sepsis criteria, Legionella and Strep pneumo antigens are negative. Plan: - continue broad spectrum abx, zosyn day 4, vanc day 1; DC vanc if MRSA surveillance neg - repeat sputum cx , blood cx pending - pt seen by speech therapy, they recommend pureed diet/honey thickened liquid, pt refuses recommended diet, adamant about having a regular diet - continue symbicort - continue bronchodilators (3) COPD exacerbation Current Visit: No Status: Acute Assessment and Plan: not on acute exacerbation. continue bronchodilators Xopenex due to tachycardia (4) Pulmonary embolism Current Visit: No Status: Chronic Assessment and Plan: continue ribaroxaban 15mg/PO daily. (5) Fracture of distal fibula Current Visit: Yes Status: Acute Assessment and Plan: tramadol 50mg/PO Q6HR PRN for pain control. (6) Hypoglycemia associated with diabetes Current Visit: Yes Status: Resolved Assessment and Plan: possible due to sulfonurea use in the setting of low PO intake over the past 2 days. resolved Patient currently on SQ humalog TIDAC and HS glucose stable checking A1C, consider stopping sulfonurea cont atorvastatin 10 mg PO q HS (7) Non-small cell lung cancer Current Visit: Yes Status: Chronic Assessment and Plan: per hem&Onc note She completed radiotherapy 09/03/18. outpatient follow up. 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 Continue oxygen supplementation, titrate for O2 sat duration more than 92%. (10) Pulmonary hypertension Current Visit: No Status: Acute Assessment and Plan: As seen on ECHO on 09/26 - plan for outpatient follow up if pt wishes to pursue aggressive management (11) Diastolic heart failure Current Visit: No Status: Chronic Assessment and Plan: Pt c/o retrosternal chest pain on admission, resolved History of HF, LVEF 50-55% with mild diastolic dysfxn Troponin 0.03 --> 0.04 --> 0.03 this admission Plan: - continue ASA/statin - beta amelie held secondary to hypotension, start metroprolol 12.5 PO q 12 h, recheck blood pressure before evening dose - strict I&O - daily weights (12) Macrocytic anemia Current Visit: Yes Status: Chronic Assessment and Plan: Macrocytic anemia, Hgb 11.4, MCV 104 - Check folate and B12 levels - Time Spent with Patient Total time spent is greater than 50% in coordination of care (as documented) at patient's floor/unit and/or counseling patient: Internal Medicine: Result - Labs CBC & Chem 7: 09/28/18 09:32 09/28/18 09:32 Labs: BMP 09/28/18 09:32 Sodium 144 Potassium 4.1 Chloride 109 H Carbon Dioxide 32 H BUN 9 Creatinine 0.86 Glucose 161 H Calcium 8.4 L - ABG Interpretation ABG results: PT/INR, D-dimer PT 13.9 Seconds (9.4-12.1) H 09/26/18 08:09 Consult Discharge Plan - Plan Referrals: Michel Giron MD [Primary Care Provider] - 10/02/18 1:15 pm (Please follow up as schedule....) <Hortencia Orourke - Last Filed: 09/29/18 13:34> Hospitalist Progress Note - Encounter Date of Encounter: 09/29/18 - Exam Vitals: Temp Pulse Resp BP Pulse Ox 97.6 F 122 18 120/75 94 09/29/18 11:32 09/29/18 11:32 09/29/18 11:32 09/29/18 11:32 09/29/18 11:32 - Assessment and Plan (1) MARIE (acute kidney injury) Current Visit: Yes Status: Resolved (2) COPD (chronic obstructive pulmonary disease) Current Visit: Yes Status: Chronic (3) Pulmonary embolism Current Visit: No Status: Chronic (4) Hypoglycemia associated with diabetes Current Visit: Yes Status: Resolved (5) Hypotension Current Visit: Yes Status: Resolved (6) UTI (urinary tract infection) Current Visit: Yes Status: Suspected (7) Chest pain Current Visit: Yes Status: Acute (8) Non-small cell lung cancer Current Visit: Yes Status: Chronic (9) 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 (10) Left bundle branch block (LBBB) Current Visit: Yes Status: Chronic (11) Chronic hypoxemic respiratory failure Current Visit: Yes Status: Acute - Time Spent with Patient Total time spent is greater than 50% in coordination of care (as documented) at patient's floor/unit and/or counseling patient: Internal Medicine: Result - Labs CBC & Chem 7: 09/28/18 09:32 09/28/18 09:32 - ABG Interpretation ABG results: PT/INR, D-dimer PT 13.9 Seconds (9.4-12.1) H 09/26/18 08:09 - Attending Attestation The history, physical exam, and medical decision making was performed by medical student Kevin either while I was physically present and actively involved or I personally re-performed the exam and medical decision making. I have verified the accuracy of the medical student's documentation with regards to the history, physical exam findings, and medical decision making. Ms Kumar was admitted with pna and hypotension which has improved with more aggressive than previous fluids Now transferring out of ICU to floor. awake, in bed, + cough, + sputum, denies wheezing. no sob at rest with o2 nc. 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- cont vanc + zosyn, if mrsa swab neg may dc vanc, repeat sputum cx due to oral ernestine, she refuses accounts payable accountant rec diet and is demanding regular diet despite knowing asp risk, cont bronchodilators cont to monitor Hypoglycemia- wasnot eating at home and taking oral agent, check a1c, cont SSI, may have to adjust home regimen PE hx- cont home AC Hx fracture distal fibula- prn panin control fu outpt provider NSCL cancer and squam cell carcinoma glottis- fu with established outpt onc COPD and Pulm HTN mod to severe with chronic hypoxic resp failure- home 4l nc, fu outpt with pulm Chronic diastolic chf- asa, statin, re introduce low dose lopressor and monitor BP closely further diagnoses and treatment as noted above pt/ot evals complete disp will be to home <Wendy Brown - Last Filed: 09/29/18 12:54> (1) Hypotension Qualifiers: Hypotension type: unspecified hypotension type Qualified Code(s): I95.9 - Hypotension, unspecified (2) Pneumonia Qualifiers: Pneumonia type: due to unspecified organism Laterality: bilateral Lung location: unspecified part of lung Qualified Code(s): J18.9 - Pneumonia, unspecified organism (4) Pulmonary embolism Qualifiers: Pulmonary embolism type: unspecified Chronicity: chronic Acute cor pulmonale presence: without acute cor pulmonale Qualified Code(s): I27.82 - Chronic pulmonary embolism (7) Non-small cell lung cancer Qualifiers: Laterality: unspecified laterality Qualified Code(s): C34.90 - Malignant neoplasm of unspecified part of unspecified bronchus or lung (11) Diastolic heart failure Qualifiers: Heart failure chronicity: acute on chronic Qualified Code(s): I50.33 - Acute on chronic diastolic (congestive) heart failure <Hortencia Orourke M - Last Filed: 09/29/18 13:34> (2) COPD (chronic obstructive pulmonary disease) Qualifiers: COPD type: emphysema Emphysema type: centrilobular Qualified Code(s): J43.2 - Centrilobular emphysema (3) Pulmonary embolism Qualifiers: Pulmonary embolism type: unspecified Chronicity: chronic Acute cor pulmonale presence: without acute cor pulmonale Qualified Code(s): I27.82 - Chronic pulmonary embolism (5) Hypotension Qualifiers: Hypotension type: idiopathic hypotension Qualified Code(s): I95.0 - Idiopathic hypotension (6) UTI (urinary tract infection) Qualifiers: Urinary tract infection type: site unspecified Hematuria presence: without hematuria Qualified Code(s): N39.0 - Urinary tract infection, site not specified (7) Chest pain Qualifiers: Chest pain type: unspecified Qualified Code(s): R07.9 - Chest pain, unspecified (8) Non-small cell lung cancer Qualifiers: Laterality: unspecified laterality Qualified Code(s): C34.90 - Malignant neoplasm of unspecified part of unspecified bronchus or lung
[2018-09-29] MEDS: Budesonide/Formoterol 80/4.5 MDI IH SCH ×2 (10:15→21:34)
[2018-09-29 11:57] LABS: Folate 9.7 ng/mL (3.0-16.0)
[2018-09-29 12:56] LABS: Estimated Average Glucose 71 mg/dl; Hemoglobin A1C 4.1 %
[2018-09-29] MEDS: *HR* Rivaroxaban 10 MG TABLET PO SCH (16:17)
[2018-09-29] MEDS: Cyanocobalamin (B-12) 1,000 MCG TABLET PO SCH (17:37)
[2018-09-30] MEDS: Piperacillin/Tazobactam 3.375 GM in 0.9 % Sodium Chloride Mini Bag 100 ML IVPB SCH ×2 (00:23→09:07)
[2018-09-30] MEDS: Levalbuterol Neb 1.25 MG/3 ML IH SCH ×4 (03:41→21:57)
[2018-09-30 05:45] LABS: Basophils % 0.7 %; Eosinophils # 0.1 K/mcL (0.0-0.6); Hematocrit 33.2 % (35.3-44.9); Hemoglobin 10.9 g/dL (11.5-15.4); Immature Granulocytes % 0.5 % (0-4); Lymphocytes # 0.8 K/mcL (0.6-4.6); Lymphocytes % 13.8 %; Mean Corpuscular HGB Conc 32.8 g/dL (31.6-35.5); Mean Corpuscular Hemoglobin 33.5 pg (28.0-33.3); Mean Corpuscular Volume 102.2 fL (83.0-100.0); Mean Platelet Volume 9.6 fL (9.4-12.4); Monocytes # 0.5 K/mcL (0.0-1.3); Monocytes % 9.3 %; Platelet Count 145 K/mcL (140-400); Red Blood Count 3.25 M/mcL (3.82-4.97); Red Cell Distribution Width 14.8 % (11.5-14.5); Segmented Neutrophils % 73.7 %
[2018-09-30 06:05] LABS: BUN/Creatinine Ratio 13 (6-26); Blood Urea Nitrogen 10 mg/dL (8-23); Calcium 8.6 mg/dL (8.6-10.3); Carbon Dioxide 24 mEq/L (23-29); Chloride 111 mEq/L (98-107); Glucose 160 mg/dL (70-105); Osmolality,Calculated 300 (280-300); Potassium 3.7 mEq/L (3.5-5.1); Sodium 144 mEq/L (136-145); eGFR For Non-African Americans > 60 (> 60)
--- NOTE | 2018-09-30 08:43 | Discharge Summary ---
<Phil Mason - Last Filed: 10/01/18 08:55> - NOTES TO OUTPATIENT PROVIDER Notes to Outpatient Provider: Patient was admited for Hypoglycemia and MARIE. During treatment she became hypotensive, also found to have suspected pneuumonia. She recieved aggressive fluid resuscitation and empiric abx in ICU. She quickly improved and was transferred to floor. After two days on the floor BP, Glucose, creatinine, respiratory status all improved. She was considered stable for discharge with PCP follow up and several days outpatient abx. We will hold insulin and Glipizide at discharge to prevent further hypoglycemia, to be reassessed by PCP. Orders not resulted at time of discharge: Pending orders 09/25/18 20:38 Culture,Blood [BC] Stat 09/26/18 15:13 Sputum Culture [Culture,Sputum with Gram Stain] [RM] Routine 09/29/18 Culture,Sputum with Gram Stain [RM] Routine 09/29/18 06:00 EKG [ECG 12 lead ECG] [ECG] AM 0600 Date of Encounter: 10/01/18 Time of Encounter: 08:39 - Discharge Diagnosis (1) Hypoglycemia associated with diabetes Priority: Primary Status: Resolved Assessment and Plan: Likely due to sulfonylurea use in the setting of low PO intake. resolved Patient currently on SQ humalog TIDAC and HS glucose stable A1c 4.1, medications will need to be reassessed outpatient Will hold Glipizide and Insulin at discharge (2) MARIE (acute kidney injury) Priority: Secondary Status: Resolved Assessment and Plan: Cr on admission elevated from baseline of 0.60 to 1.10 eGFR decreased to 50 Likely related to Glipizide use and UTI Resolved with IV fluids and nephrotoxin avoidance (3) COPD (chronic obstructive pulmonary disease) Priority: Secondary Status: Chronic Assessment and Plan: not in acute exacerbation. Xopenex due to tachycardia Discharge on home medications Qualifiers: COPD type: emphysema Emphysema type: centrilobular Qualified Code(s): J43.2 - Centrilobular emphysema (4) Pulmonary embolism Priority: Secondary Status: Chronic Assessment and Plan: continue home ribaroxaban 15mg/PO daily. Qualifiers: Pulmonary embolism type: unspecified Chronicity: chronic Acute cor pulmonale presence: without acute cor pulmonale Qualified Code(s): I27.82 - Chronic pulmonary embolism (5) Hypotension Priority: Secondary Status: Resolved Assessment and Plan: Differential includes infection vs poor PO intake (hypovolemic) vs cardiogenic ECHO showed LVEF 50-55%, severe pHTN, mild diastolic dysfxn, CT negative for acute PE, Troponin (-) at 0.03 Moved to ICU Saturday for closer monitoring, increased IVF to 0.9% NS 125cc/hr, pt was given 2 bags albumin BP stable after ICU care. Transferred back to . Fluids stopped, home Toprol restarted for tachycardia Ensured stable HR and BP before discharge Qualifiers: Hypotension type: idiopathic hypotension Qualified Code(s): I95.0 - Idiopathic hypotension (6) UTI (urinary tract infection) Priority: Secondary Status: Suspected Assessment and Plan: Patient given empiric antibiotics for UTI and Pneumonia UTI resolved Qualifiers: Urinary tract infection type: site unspecified Hematuria presence: without hematuria Qualified Code(s): N39.0 - Urinary tract infection, site not specified (7) Chest pain Priority: Secondary Status: Resolved Assessment and Plan: patient complained of retro-sternal chest pain. aspirin 325mg/PO x1 given, serial trops trended 12 lead EKG and telemetry monitoring ordered Xarelto continued and Cardiology consulted Troponins negative and EKG non-contributory ACS ruled out, chest pain resolved Qualifiers: Chest pain type: unspecified Qualified Code(s): R07.9 - Chest pain, unspecified (8) Non-small cell lung cancer Priority: Secondary Status: Chronic Assessment and Plan: per hem&Onc note She completed radiotherapy 09/03/18. outpatient follow up. 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 (10) Left bundle branch block (LBBB) Priority: Secondary Status: Chronic (11) Diastolic heart failure Priority: Secondary Status: Chronic Assessment and Plan: Pt c/o retrosternal chest pain on admission, resolved History of HF, LVEF 50-55% with mild diastolic dysfxn Troponin 0.03 --> 0.04 --> 0.03 this admission Continue home meds Qualifiers: Heart failure chronicity: acute on chronic Qualified Code(s): I50.33 - Acute on chronic diastolic (congestive) heart failure (12) Chronic hypoxemic respiratory failure Priority: Secondary Status: Chronic Assessment and Plan: Patient is on 4 L of oxygen by nasal cannula at home, continued during hospital course Hospital course: Ms Kumar is a 63 year old female with past medical history of diabetes, hypertension, COPD on home oxygen, pulmonary embolus on Xarelto, cardiomyopathy, CHF, hyperlipidemia, non-small cell lung cancer and squamous cell carcinoma of glottis. She presented to [facility] ED on 09/25/18 after being found unresponsive with a glucose of 12 at home. EMS treated her with glucagon, and her blood sugar improved to 61 with corresponding mental status improvement. She presented to ED after 3-4 days of not feeling well and poor oral intake. While in ED, she was treated with 2 mps D50, D10% IV, and empiric Cefepime and vancomycin x 1 dose each. Upon admission, patient was additionally found to have urinary tract infection, elevated creatinine, and right foot wound secondary to boot worn for fracture of distal fibula. Hypoglycemia was treated by holding Insulin and glipizide. Dextrose was administered as needed. A1C is 4.1% this admission. Urinary tract infection was treated with IV fluids and Zosyn. Her acute kidney injury was presumed secondary to urinary tract infection and poor oral intake. It responded well to fluid rehydration. CTA this admission was negative for acute pulmonary embolism. Acute emboli on the prior study have resolved with minimal residual eccentric filling defect in a left lower lobe. There was additional concern for pneumonia due to worsening patchy bibasilar consolidation with trace pleural effusion. Sputum culture, urine culture and blood cultures x 2 were all negative. PT evaluation recommended honey pureed food due to concern for aspiration pneumonia, of which the patient refused. Zosyn IV was started. Additionally, patient was treated for chest pain and hypotension during this hospital course. Her hypotension responded to IV fluids and holding Toprol XL. Cardiology was consulted for elevated troponin of 0.04. They regarded this undiagnostic in setting of hypoglycemia and hypotension. EKG demonstrated LBBB unchanged from baseline. TTE performed inpatient demonstrated EF 55%, mild LVH, mild diastolic dysfunction, and severe pulmonary hypertension. Cardiology recommended continuing aspirin, lovastatin and to resume Toprol XL once blood pressure stabilized. Patient was treat for musculoskeletal chest pain secondary to previous fall and rib fractures. Pulmonology was consulted for pulmonary hypertension that had progressed relative to TTE on 07/31 and recommended to follow outpatient. Lastly patient was treated for macrocytic anemia secondary to low vitamin B 12. B12 1000mcg PO once daily was started in patient. Upon discharge home patient denies chest pain, dyspnea, or difficulty a mbulating. Zosyn was converted to Augmentin to finish as outpatient for total of 7 days of treatment. Additionally, she is to discontinue insulin and glipizide due to concern of further hypoglycemic episodes. Follow up with primary care provider for further management. May resume all other medications including Toprol XL 25 mg PO daily and Vitamin B 12 started this hospital course. A four wheeled walker has been sent to pharmacy. No further PT needs at this time. Patient may benefit from additional physical therapy after fibular fracture is healed. Discharge discussed with: patient, nurse, case management - Time Spent with Patient Total time spent providing and/or coordinating discharge services: - Discharge Medications Prescriptions: Amoxicillin/Clavulanate [Augmentin] 875 mg PO BIDWM 2 Days #4 tablet Cyanocobalamin (B-12) [Vitamin B12] 1,000 mcg PO DAILY 14 Days #14 tablet Home Medications: Albuterol Sulfate [Ventolin Hfa] 2 puff IH Q4H PRN 10/02/17 [History] Aspirin 325 mg PO DAILY 10/02/17 [History] Furosemide [Lasix] 20 mg PO TID 10/02/17 [History] Ipratropium/Albuterol Neb [Duoneb] 3 ml IH Q6H PRN 10/02/17 [History] Lovastatin 40 mg PO HS 10/02/17 [History] Oxygen 2 l NS AD 10/02/17 [History] Potassium Chloride [Klor-Con 10] 5 meq PO DAILY 10/02/17 [History] Fluticasone/Salmeterol [Advair 250-50 Diskus] 1 puff IH BID 08/08/18 [History] Rivaroxaban [Xarelto] 20 mg PO DAILY #60 tablet 08/12/18 [Rx] Levalbuterol HCl [Xopenex] 1.25 mg IH Q6H 09/25/18 [History] Lisinopril-HCTZ 20-12.5 [Prinzide 20-12.5] 1 tab PO DAILY 09/25/18 [History] Metoprolol Succinate [Toprol Xl] 25 mg PO DAILY 09/25/18 [History] Tramadol HCl [Ultram] 50 mg PO QID PRN 09/25/18 [History] Amoxicillin/Clavulanate [Augmentin] 875 mg PO BIDWM 2 Days #4 tablet 09/30/18 [Rx] Cyanocobalamin (B-12) [Vitamin B12] 1,000 mcg PO DAILY 14 Days #14 tablet 09/30/18 [Rx] Allergies/Adverse Reactions: Allergy/AdvReac Type Severity Reaction Status Date / Time Penicillins [PCN] Allergy Mild Hives Verified 09/21/18 10:34 Date of admission: 09/27/18 16:21 Primary care physician: Michel Giron MD Consults: 09/26/18 08:24 Consult to Cardiology [CONS] Routine Comment: Consulting Provider: Cardiology [facility] Reason for Consult: chest pain. Call Completed: No 09/26/18 11:51 Consult to Wound Care [CONS] Routine Reason for Consult: Pressure injury to right heel Call Completed: Yes 09/26/18 12:29 Consult to Critical Care [CONS] Routine Consulting Provider: [facility] Reason for Consult: hypotension Call Completed: Yes 09/27/18 07:38 Consult to Physical Therapy [CONS] Routine Comment: Evaluate, develop and implement POC Reason for Consult: has no help at home and has had a fall and a broken right foot Does patient have active BEDREST order?: No Is patient medically & hemodynamically stable?: Yes Patient assessed for mobility or mobilized this visit?: No Discharging clinician: Phil Mason Anticipated date of discharge: 10/01/18 - Constitutional Vitals: Temp Pulse Resp BP Pulse Ox 97.9 F 118 15 117/79 92 09/30/18 07:34 09/30/18 07:34 09/30/18 07:34 09/30/18 07:34 09/30/18 07:34 General appearance: Present: cooperative, A&O X 3, pleasant Exam: Gen: Vitals noted. Patient appears in no acute distress. Eyes: no lid-lag; EOMI HENT: Atraumatic; normocephalic Neck: Trachea midline; supple Cardiac: tachycardic, regular rhythm, no murmurs appreciated, +S1/S2 Pulmonary: Normal effort, no respiratory distress.Scattered exhalational wheeze/rhonchi. Abdomen: soft, nontender, no guarding. Skin: Normal temperature, turgor and texture; no rash, ulcers or subcutaneous no dules. There is an intact blister on the heel of the right foot. Neuro: moves all extremities, no focal deficits. - Patient Status Disposition: Home Health Service Condition: Fair Functional capacity at discharge: uses cane/walker Overall status at discharge: patient is back to baseline - Discharge Instructions Instructions: Amoxicillin/Clavulanate Potassium (By mouth), Folic Acid/Cyanocobalamin (Vitamin B12)/Pyridoxine (Vitamin B6) (By mouth) Follow Up With: Michel Giron MD [Primary Care Provider] - 10/02/18 1:15 pm (Please follow up as schedule....) - Diet and Activity Activity: as per physical therapy Diet: diabetic diet, low salt diet <Leonardo Hunter - Last Filed: 10/01/18 13:55> Orders not resulted at time of discharge: Pending orders 09/29/18 Culture,Sputum with Gram Stain [RM] Routine Date of Encounter: 10/01/18 - Discharge Diagnosis (1) Diastolic heart failure Status: Chronic Qualifiers: Heart failure chronicity: acute on chronic Qualified Code(s): I50.33 - Acute on chronic diastolic (congestive) heart failure (2) MARIE (acute kidney injury) Status: Resolved (3) COPD (chronic obstructive pulmonary disease) Status: Chronic Qualifiers: COPD type: emphysema Emphysema type: centrilobular Qualified Code(s): J43.2 - Centrilobular emphysema (4) Pulmonary embolism Status: Chronic Qualifiers: Pulmonary embolism type: unspecified Chronicity: chronic Acute cor pulmonale presence: without acute cor pulmonale Qualified Code(s): I27.82 - Chronic pulmonary embolism (5) Hypoglycemia associated with diabetes Status: Resolved (6) Hypotension Status: Resolved Qualifiers: Hypotension type: idiopathic hypotension Qualified Code(s): I95.0 - Idiopathic hypotension (7) UTI (urinary tract infection) Status: Suspected Qualifiers: Urinary tract infection type: site unspecified Hematuria presence: without hematuria Qualified Code(s): N39.0 - Urinary tract infection, site not specified (8) Chest pain Status: Resolved Qualifiers: Chest pain type: unspecified Qualified Code(s): R07.9 - Chest pain, unspecified (9) Non-small cell lung cancer Status: Chronic Qualifiers: Laterality: unspecified laterality Qualified Code(s): C34.90 - Malignant neoplasm of unspecified part of unspecified bronchus or lung (10) Squamous cell carcinoma of glottis Status: Chronic (11) Left bundle branch block (LBBB) Status: Chronic (12) Chronic hypoxemic respiratory failure Status: Chronic Hospital course: Ms. Kumar is a 63 year old female - Time Spent with Patient Total time spent providing and/or coordinating discharge services: 38min Date of admission: 09/27/18 16:21 Primary care physician: Michel Giron MD Consults: 09/26/18 08:24 Consult to Cardiology [CONS] Routine Comment: Consulting Provider: Cardiology [facility] Reason for Consult: chest pain. Call Completed: No 09/26/18 11:51 Consult to Wound Care [CONS] Routine Reason for Consult: Pressure injury to right heel Call Completed: Yes 09/26/18 12:29 Consult to Critical Care [CONS] Routine Consulting Provider: [facility] Reason for Consult: hypotension Call Completed: Yes 09/27/18 07:38 Consult to Physical Therapy [CONS] Routine Comment: Evaluate, develop and implement POC Reason for Consult: has no help at home and has had a fall and a broken right foot Does patient have active BEDREST order?: No Is patient medically & hemodynamically stable?: Yes Patient assessed for mobility or mobilized this visit?: No - Constitutional Vitals: Temp Pulse Resp BP Pulse Ox 97.9 F 110 16 122/75 91 10/01/18 10:51 10/01/18 10:51 10/01/18 10:51 10/01/18 10:51 10/01/18 10:51 - Attending Attestation I examined this patient and my medical decision-making was reviewed with the Resident Physician on 10/01/18. I agree with the documented findings, disposition and treatment plan as described except to the extent set forth below. Ms Kumar has been admitted for hypoglycemia and CHF exacerbation. She had mone betic medications stopped due to low sugars (A1C 4.9%). She was treated for heart failure as well. Today she is improved in her breathing and is afebrile. She is ready for discharge home. Exam alert Comfortable Mucus membranes dry Heart not tachy Lungs clear now Plan D/C home today HHC for wound on foot.
[2018-09-30] MEDS: Cyanocobalamin (B-12) 1,000 MCG TABLET PO SCH (09:07)
[2018-09-30] MEDS: Insulin LISPRO 300 UNITS/3 ML VIAL SQ SCH ×4 (09:08→20:17)
[2018-09-30] MEDS: Aspirin 325 MG TABLET PO SCH (09:08)
[2018-09-30] MEDS: Metoprolol XL (24 HR) Succ 25 MG TAB.ER.24H PO SCH (09:08)
[2018-09-30] MEDS: Budesonide/Formoterol 80/4.5 MDI IH SCH ×2 (10:21→21:57)
[2018-09-30] MEDS ORDERED: Furosemide 40 MG/4 ML VIAL IVP ONE (10:35)
--- NOTE | 2018-09-30 12:09 | Internal Med Progress Note ---
<Wendy Brown R - Last Filed: 09/30/18 13:33> Hospitalist Progress Note - Encounter Date of Encounter: 09/30/18 Time of Encounter: 08:15 - Subjective Interval History: Pt seen and examined at bedside. Reports is feeling much better. Denies CP, dyspnea. Reports occasional dizzyness and occasional productive cough - no different from baseline. thought her right foot blister had burst overnight. - Exam Vitals: Temp Pulse Resp BP Pulse Ox 97.8 F 117 16 102/64 91 09/30/18 10:45 09/30/18 10:45 09/30/18 10:45 09/30/18 10:45 09/30/18 10:45 Exam: Gen: Vitals noted. Eyes: no lid-lag; EOMI HENT: Atraumatic; normocephalic Neck: Trachea midline, Neck good ROM Cardiac: RRR, no murmurs appreciated, +S1/S2 Pulmonary: Tachypneic on exam, mild respiratory distress. minimal wheezing LLL, no rhonchi or rales bilat Abd: +bs, soft, non tender Skin: Normal temperature. blister on the heel of the right foot appears intact, though there is some scant, light serosang fluid seeped onto pillow beneath foot. Neuro: moves all extremities, no focal deficits. - Assessment and Plan (1) Diastolic heart failure Current Visit: No Status: Chronic Assessment and Plan: Pt c/o retrosternal chest pain on admission, resolved History of HF, LVEF 50-55% with mild diastolic dysfxn Troponin 0.03 --> 0.04 --> 0.03 this admission tachypneic and +6L net fluid retention Plan: - continue ASA/statin - resumed Toprol XL 25 mg PO Q 24h - strict I&O, added lasix 40mg IVP x 1 dose - daily weights (2) Pneumonia Current Visit: No Status: Acute Assessment and Plan: Likely bacterial, possibly related to aspiration, atelectasis vs pneumonia CT of chest 09/26 showed no evidence for acute PE, worsening patchy bibasilar consolidation with trace pleural effusion Does not meet sepsis criteria, Legionella and Strep pneumo antigens are negat kristie. Sputum culture prelim pos for few gram pos cocci and yeast Plan: - zosyn day 5, convert to augmentin PO in preparation for DC - MRSA surveillance neg, vanc DC - blood cultures pending - pt seen by speech therapy, they recommend pureed diet/honey thickened liquid, pt refuses recommended diet, adamant about having a regular diet - continue symbicort - continue bronchodilators (3) Hypotension Current Visit: Yes Status: Acute Assessment and Plan: BP stable, resolved Differential includes infection vs poor PO intake (hypovolemic) vs cardiogenic ECHO on 09/26/18 showed LVEF 50-55%, severe pHTN, mild diastolic dysfxn, CT negative for acute PE, Troponin (-) at 0.03 Moved to ICU 09/26/18 for closer monitoring, increased IVF to 0.9% NS 125cc/hr, pt was given 2 bags albumin BP stabilized, antiHTN rx held at that time stable after ICU care. Transfered back to . Fluids stopped. BP stable Plan: Continue monitoring BP. (4) COPD exacerbation Current Visit: No Status: Acute Assessment and Plan: not on acute exacerbation. continue bronchodilators Xopenex due to tachycardia (5) Pulmonary embolism Current Visit: No Status: Chronic Assessment and Plan: hx PE CTA 09/26/18 - Acute emboli on the prior study have resolved with minimal residual eccentric filling defect in a left lower lobe subsegmental branch. Plan: continue ribaroxaban 15mg/PO daily. (6) Fracture of distal fibula Current Visit: Yes Status: Acute Assessment and Plan: frx after tripping and falling about 1 mo prior Plan: - tramadol 50mg/PO Q6HR PRN for pain control. - Four wheel walker waiting at pharmacy upon DC (7) Hypoglycemia associated with diabetes Current Visit: Yes Status: Resolved Assessment and Plan: possible due to sulfonurea use in the setting of low PO intake over the past 2 days. resolved Patient currently on SQ humalog TIDAC and HS glucose stable A1C 4.1% Plan: DC insulin and sulfonurea cont atorvastatin 10 mg PO q HS (8) Non-small cell lung cancer Current Visit: Yes Status: Chronic Assessment and Plan: per hem&Onc note She completed radiotherapy 09/03/18. outpatient follow up. 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 Continue oxygen supplementation, titrate for O2 sat duration more than 92%. (11) Pulmonary hypertension Current Visit: No Status: Acute Assessment and Plan: As seen on ECHO on 09/26 - plan for outpatient follow up if pt wishes to pursue aggressive management (12) Macrocytic anemia Current Visit: Yes Status: Chronic Assessment and Plan: Macrocytic anemia, Hgb 11.4, MCV 104 B12 level low normal and < 500 Hgb dropped to 10.9. This is likely hemodilutional due to net 6L fluid retent - given B12 1000 skilled nursing PO q 24H (13) Wound of right foot Current Visit: Yes Status: Acute Assessment and Plan: Intact blister on right heel, developed since wearing boot Plan: - wrap foot - consider home health consult for wound care at [place] DVT Prophylaxis: on xarelto for PE - Time Spent with Patient Total time spent is greater than 50% in coordination of care (as documented) at patient's floor/unit and/or counseling patient: Internal Medicine: Result - Labs CBC & Chem 7: 09/30/18 04:00 09/30/18 04:00 Labs: Short CBC 09/30/18 Range/Units 04:00 WBC 5.5 (4.3-11.1) K/mcL Hgb 10.9 L (11.5-15.4) g/dL Hct 33.2 L (35.3-44.9) % Plt Count 145 (140-400) K/mcL Neutrophils # 4.0 (1.6-8.9) K/mcL BMP 09/30/18 04:00 Sodium 144 Potassium 3.7 Chloride 111 H Carbon Dioxide 24 BUN 10 Creatinine 0.78 Glucose 160 H Calcium 8.6 - ABG Interpretation ABG results: PT/INR, D-dimer PT 13.9 Seconds (9.4-12.1) H 09/26/18 08:09 Consult Discharge Plan - Plan Referrals: Michel Giron MD [Primary Care Provider] - 10/02/18 1:15 pm (Please follow up as schedule....) Prescriptions: Amoxicillin/Clavulanate [Augmentin] 875 mg PO BIDWM 2 Days #4 tablet Cyanocobalamin (B-12) [Vitamin B12] 1,000 mcg PO DAILY 14 Days #14 tablet <Leonardo Hunter - Last Filed: 09/30/18 17:42> Hospitalist Progress Note - Encounter Date of Encounter: 09/30/18 - Exam Vitals: Temp Pulse Resp BP Pulse Ox 97.6 F 107 16 124/83 95 09/30/18 16:07 09/30/18 16:07 09/30/18 16:07 09/30/18 16:07 09/30/18 16:07 - Assessment and Plan (1) Diastolic heart failure Current Visit: No Status: Chronic (2) MARIE (acute kidney injury) Current Visit: Yes Status: Resolved (3) COPD (chronic obstructive pulmonary disease) Current Visit: Yes Status: Chronic (4) Pulmonary embolism Current Visit: No Status: Chronic (5) Hypoglycemia associated with diabetes Current Visit: Yes Status: Resolved (6) Hypotension Current Visit: Yes Status: Resolved (7) UTI (urinary tract infection) Current Visit: Yes Status: Suspected (8) Chest pain Current Visit: Yes Status: Resolved (9) Non-small cell lung cancer Current Visit: Yes Status: Chronic (10) 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 (11) Left bundle branch block (LBBB) Current Visit: Yes Status: Chronic (12) Chronic hypoxemic respiratory failure Current Visit: Yes Status: Chronic - Time Spent with Patient Total time spent is greater than 50% in coordination of care (as documented) at patient's floor/unit and/or counseling patient: Internal Medicine: Result - Labs CBC & Chem 7: 09/30/18 04:00 09/30/18 04:00 Labs: Short CBC 09/30/18 Range/Units 04:00 WBC 5.5 (4.3-11.1) K/mcL Hgb 10.9 L (11.5-15.4) g/dL Hct 33.2 L (35.3-44.9) % Plt Count 145 (140-400) K/mcL Neutrophils # 4.0 (1.6-8.9) K/mcL BMP 09/30/18 04:00 Sodium 144 Potassium 3.7 Chloride 111 H Carbon Dioxide 24 BUN 10 Creatinine 0.78 Glucose 160 H Calcium 8.6 - ABG Interpretation ABG results: PT/INR, D-dimer PT 13.9 Seconds (9.4-12.1) H 09/26/18 08:09 - Attending Attestation The history, physical exam, and medical decision making was performed by the medical student either while I was physically present and actively involved or I personally re-performed the exam and medical decision making. I have verified the accuracy of the medical student's documentation with regards to the history, physical exam findings, and medical decision making on 09/30/18. Ms Kumar is currently admitted for hypoglycemia and CHF exacerbation. She remains moderate to high risk due to potential for worsening clinical status. Ms Kumar is sitting at bedside. Blood sugar has been stable. No fever or chills. Significantly fluid positive. On baseline oxygen. Exam alert Mod dyspnea at rest Mucus membranes dry Heart distant. Not tachycardic Diminished breath sounds. Abd soft and nontender Moves all extremities No rash. No significant edema noted I/P 1. Resp failure - on home oxygen levels. 2. Fluid overload - appears more dyspneic today. Diurese today. 3. DM - HgbA1C low. Meds stopped for now. 4. Chronic hypoxic resp failure Further diagnoses and plan as above. If stable overnight anticipate d/c in AM. <Wendy Brown - Last Filed: 09/30/18 13:33> (1) Diastolic heart failure Qualifiers: Heart failure chronicity: acute on chronic Qualified Code(s): I50.33 - Acute on chronic diastolic (congestive) heart failure (2) Pneumonia Qualifiers: Pneumonia type: due to unspecified organism Laterality: bilateral Lung location: unspecified part of lung Qualified Code(s): J18.9 - Pneumonia, unspecified organism (3) Hypotension Qualifiers: Hypotension type: unspecified hypotension type Qualified Code(s): I95.9 - Hypotension, unspecified (5) Pulmonary embolism Qualifiers: Pulmonary embolism type: unspecified Chronicity: chronic Acute cor pulmonale presence: without acute cor pulmonale Qualified Code(s): I27.82 - Chronic pulmonary embolism (8) Non-small cell lung cancer Qualifiers: Laterality: unspecified laterality Qualified Code(s): C34.90 - Malignant neoplasm of unspecified part of unspecified bronchus or lung <Leonardo Hunter - Last Filed: 09/30/18 17:42> (1) Diastolic heart failure Qualifiers: Heart failure chronicity: acute on chronic Qualified Code(s): I50.33 - Acute on chronic diastolic (congestive) heart failure (3) COPD (chronic obstructive pulmonary disease) Qualifiers: COPD type: emphysema Emphysema type: centrilobular Qualified Code(s): J43.2 - Centrilobular emphysema (4) Pulmonary embolism Qualifiers: Pulmonary embolism type: unspecified Chronicity: chronic Acute cor pulmonale presence: without acute cor pulmonale Qualified Code(s): I27.82 - Chronic pulmonary embolism (6) Hypotension Qualifiers: Hypotension type: idiopathic hypotension Qualified Code(s): I95.0 - Idiopathic hypotension (7) UTI (urinary tract infection) Qualifiers: Urinary tract infection type: site unspecified Hematuria presence: without hematuria Qualified Code(s): N39.0 - Urinary tract infection, site not specified (8) Chest pain Qualifiers: Chest pain type: unspecified Qualified Code(s): R07.9 - Chest pain, unspecified (9) Non-small cell lung cancer Qualifiers: Laterality: unspecified laterality Qualified Code(s): C34.90 - Malignant neoplasm of unspecified part of unspecified bronchus or lung
[2018-09-30] MEDS: *HR* Rivaroxaban 10 MG TABLET PO SCH (17:04)
[2018-09-30] MEDS ORDERED: Furosemide 20 MG/2 ML VIAL IVP ONE (17:30)
[2018-10-01] MEDS: Levalbuterol Neb 1.25 MG/3 ML IH SCH ×2 (03:45→10:21)
[2018-10-01 03:57] LABS: Basophils % 0.7 %; Eosinophils # 0.1 K/mcL (0.0-0.6); Eosinophils % 1.9 %; Hemoglobin 10.7 g/dL (11.5-15.4); Immature Granulocytes % 0.5 % (0-4); Lymphocytes # 0.7 K/mcL (0.6-4.6); Lymphocytes % 12.3 %; Mean Corpuscular HGB Conc 33.4 g/dL (31.6-35.5); Mean Corpuscular Hemoglobin 33.4 pg (28.0-33.3); Mean Platelet Volume 9.9 fL (9.4-12.4); Monocytes # 0.5 K/mcL (0.0-1.3); Monocytes % 9.2 %; Neutrophils # 4.4 K/mcL (1.6-8.9); Platelet Count 156 K/mcL (140-400); Red Cell Distribution Width 14.7 % (11.5-14.5); Segmented Neutrophils % 75.4 %
[2018-10-01 04:15] LABS: BUN/Creatinine Ratio 13 (6-26); Blood Urea Nitrogen 10 mg/dL (8-23); Calcium 8.6 mg/dL (8.6-10.3); Carbon Dioxide 28 mEq/L (23-29); Chloride 110 mEq/L (98-107); Glucose 142 mg/dL (70-105); Osmolality,Calculated 299 (280-300); Potassium 3.4 mEq/L (3.5-5.1); Sodium 144 mEq/L (136-145); eGFR For Non-African Americans > 60 (> 60)
[2018-10-01] MEDS: Insulin LISPRO 300 UNITS/3 ML VIAL SQ SCH ×2 (07:42→11:59)
[2018-10-01] MEDS: Aspirin 325 MG TABLET PO SCH (07:49)
[2018-10-01] MEDS: Metoprolol XL (24 HR) Succ 25 MG TAB.ER.24H PO SCH (07:49)
[2018-10-01] MEDS: Cyanocobalamin (B-12) 1,000 MCG TABLET PO SCH (07:49)
[2018-10-01] MEDS ORDERED: Potassium Chloride 20 MEQ, Lidocaine 1% 2 ML in D5% in Water 250 ML IVPB ONE (08:25)
--- NOTE | 2018-10-01 09:07 | Physician Discharge Referral ---
Home Health/Hosp Referral Info Transfer to: Home Health Attending Provider: Dale Provider in Charge Post Discharge: PCP - Diagnosis (1) Hypoglycemia associated with diabetes Priority: Primary Status: Resolved (2) MARIE (acute kidney injury) Priority: Secondary Status: Resolved (3) COPD (chronic obstructive pulmonary disease) Priority: Secondary Status: Chronic (4) Pulmonary embolism Priority: Secondary Status: Chronic (5) Hypotension Priority: Secondary Status: Resolved (6) UTI (urinary tract infection) Priority: Secondary Status: Suspected (7) Chest pain Priority: Secondary Status: Resolved (8) Non-small cell lung cancer Priority: Secondary Status: Chronic (9) Squamous cell carcinoma of glottis Priority: Secondary Status: Chronic (10) Left bundle branch block (LBBB) Priority: Secondary Status: Chronic (11) Chronic hypoxemic respiratory failure Priority: Secondary Status: Chronic (12) Diastolic heart failure Priority: Secondary Status: Chronic - Respiratory Orders Oxygen / L per min (4L) Smoking Cessation: Smoking cessation has been advised. For more information, call the [employer] Quit Line at 3-655-[facility]-NOW. - Dressing/Wound Care Site: Right heel blister, secondary to boot for fibula fracture Type of Dressing/Treatments w/Frequency: Daily dressing change - Diet/Nutrition Diet/Nutrition Orders: Cardiac, No Concentrated Sweets - Activity Activity Orders: Walker - Services Needed Following services are medically necessary services: Home Health Aide - Transfer Medications Prescriptions: Amoxicillin/Clavulanate [Augmentin] 875 mg PO BIDWM 2 Days #4 tablet Cyanocobalamin (B-12) [Vitamin B12] 1,000 mcg PO DAILY 14 Days #14 tablet Home Medications: Albuterol Sulfate [Ventolin Hfa] 2 puff IH Q4H PRN 10/02/17 [History] Aspirin 325 mg PO DAILY 10/02/17 [History] Furosemide [Lasix] 20 mg PO TID 10/02/17 [History] Ipratropium/Albuterol Neb [Duoneb] 3 ml IH Q6H PRN 10/02/17 [History] Lovastatin 40 mg PO HS 10/02/17 [History] Oxygen 2 l NS AD 10/02/17 [History] Potassium Chloride [Klor-Con 10] 5 meq PO DAILY 10/02/17 [History] Fluticasone/Salmeterol [Advair 250-50 Diskus] 1 puff IH BID 10/26/18 [History] Rivaroxaban [Xarelto] 20 mg PO DAILY #60 tablet 08/12/18 [Rx] Levalbuterol HCl [Xopenex] 1.25 mg IH Q6H 09/25/18 [History] Lisinopril-HCTZ 20-12.5 [Prinzide 20-12.5] 1 tab PO DAILY 09/25/18 [History] Metoprolol Succinate [Toprol Xl] 25 mg PO DAILY 09/25/18 [History] Tramadol HCl [Ultram] 50 mg PO QID PRN 09/25/18 [History] Amoxicillin/Clavulanate [Augmentin] 875 mg PO BIDWM 2 Days #4 tablet 09/30/18 [R x] Cyanocobalamin (B-12) [Vitamin B12] 1,000 mcg PO DAILY 14 Days #14 tablet 09/30/18 [Rx] Allergies/Adverse Reactions: Allergy/AdvReac Type Severity Reaction Status Date / Time Penicillins [PCN] Allergy Mild Hives Verified 09/21/18 10:34 Certification: Further, I certify that my clinical findings support that this patient is homebound (i.e. absences from home require considerable and taxing effort and are for medical reasons or worship services or infrequently or short duration when for other reasons) because: Patient has sever baseline respiratory compromise requiring 24hr supplemental O2 as well as new fibula fracture reducing mobility Homebound Reason: Patient requires assistance of a person or device to safely leave home, Severity of cardiac or pulmonary status limits activity tolerance Attestation: My signature below is to certify that this patient is under my care and that I, or nurse practitioner, or a physician's produce assistant working with me, has a [id number] encounter with this patient.
[2018-10-01] MEDS: Budesonide/Formoterol 80/4.5 MDI IH SCH (10:21)
[2018-10-01 10:51] VITALS: BP 122/75
== END 2018-10-01 14:09 | disposition home health service (06) | DRG 420 ==
LOC: EMEROOARM 18:18 → 2ANU 18:18 → SUATTDRO 22:39 → 2ANU 23:39 → ICNU 09-26 14:15 → SUATTDRO 09-27 16:21 → 2ANU 09-28 15:40
PROVIDERS: ADMIT Pediatrics; ATTEND Internal Medicine

== ENCOUNTER 2018-12-23 14:57 | Inpatient (IN) ==
[2018-12-23] MEDS ORDERED: Isovue-370 500 ML BOTTLE IVP ONE (15:03)
--- NOTE | 2018-12-23 15:12 | Emergency Department Note ---
Disposition Clinical Impression: Sepsis, Pneumonia, COPD exacerbation, Hypoxia, Lung cancer, NSTEMI (non-ST elevated myocardial infarction) Disposition: Admitted As Inpatient Condition: Serious Referrals: Michel Giron MD [Primary Care Provider] - Forms: ED Satisfaction Letter General Adult HPI - General Chief complaint: ED Shortness of Breath/Dyspnea Stated complaint: LIZZY Time Seen by Provider: 12/23/18 15:02 Nursing Notes Reviewed: Yes Vital Signs Reviewed: Yes - Related Data Home Medications Medication Instructions Recorded Confirmed Albuterol Sulfate [Ventolin Hfa] 2 puff IH Q4H PRN 10/02/17 12/23/18 Aspirin 325 mg PO DAILY 10/02/17 12/23/18 Furosemide [Lasix] 20 mg PO TID 10/02/17 12/23/18 Ipratropium/Albuterol Neb [Duoneb] 3 ml IH Q6H PRN 10/02/17 12/23/18 Lovastatin 40 mg PO HS 10/02/17 12/23/18 Oxygen 4 l NS AD 10/02/17 12/23/18 Potassium Chloride [Klor-Con 10] 5 meq PO DAILY 10/02/17 12/23/18 Fluticasone/Salmeterol [Advair 1 puff IH BID 08/08/18 12/23/18 250-50 Diskus] Levalbuterol HCl [Xopenex] 1.25 mg IH Q6H 09/25/18 12/23/18 Metoprolol Succinate [Toprol Xl] 25 mg PO DAILY 09/25/18 12/23/18 Insulin Glargine,Hum.rec.anlog 5 unit SQ HS 11/11/18 12/23/18 [Basaglar Kwikpen U-100] Previous Rx's Medication Instructions Recorded Rivaroxaban [Xarelto] 20 mg PO DAILY #60 tablet 08/12/18 Promethazine [Phenergan] 25 mg PO Q6HR PRN #30 tablet 12/23/18 Allergies Allergy/AdvReac Type Severity Reaction Status Date / Time Penicillins [PCN] Allergy Mild Hives Verified 12/04/18 13:41 Past Medical History - Past Medical History Medical history: Reports: cancer, diabetes, hypertension, other Surgical history: Reports: appendectomy, cataract Psychiatric history: Reports: no psych history - Social History Smoking Status: 2nd Hand Smoke Exposure Smokeless Tobacco Status: No Alcohol use: Reports: none Drug use: Reports: none Course Vital Signs Temperature 94.9 F L 12/23/18 15:48 Pulse Rate 89 12/23/18 15:48 Respiratory Rate 21 12/23/18 15:48 Blood Pressure 105/80 12/23/18 15:48 O2 Sat by Pulse Oximetry 83 12/23/18 15:48 Temperature 98.7 F 12/23/18 18:12 Pulse Rate 84 12/23/18 17:54 Respiratory Rate 29 12/23/18 18:05 Blood Pressure 107/73 12/23/18 17:54 O2 Sat by Pulse Oximetry 94 12/23/18 18:05 Oxygen Delivery Oxygen Delivery CPAP Mask O2 Medical Decision Making - MDM Narrative Medical decision making narrative: Chest CTA 12/23/18 15:02 IMPRESSION: No evidence of large or central pulmonary embolism. Exam is slightly limited by early contrast phase. Interval increase in size of the right apical mass compared to 09/26/2018. There is also septal thickening in the right lung which could represent lymphangitic metastasis or a component of asymmetric pulmonary edema. New right-sided pleural effusion which could be due to infection or could be malignant. Scattered bilateral airspace disease likely represents superimposed pneumonia. D/ / Dale Cisneros MD / Dale Cisneros MD Interpreting Provider: Dale Cisneros MD Chest X-Ray 12/23/18 15:02 IMPRESSION: Findings suggest congestive heart failure D/ / Johnny Satton MD / Johnny Staton MD Interpreting Provider: Johnny Staton MD 1918 hrs.:We will go ahead and treat her for the pneumonia and go ahead and bring her into the hospital. - Lab Data Result diagrams: 12/23/18 15:36 12/23/18 15:36 Lab Results 12/23/18 12/23/18 12/23/18 Range/Units 15:36 15:36 15:36 WBC 10.1 (4.3-11.1) K/mcL RBC 5.34 H (3.82-4.97) M/mcL Hgb 15.8 H (11.5-15.4) g/dL Hct 51.2 H (35.3-44.9) % MCV 95.9 (83.0-100.0) fL MCH 29.6 (28.0-33.3) pg MCHC 30.9 L (31.6-35.5) g/dL RDW 14.5 (11.5-14.5) % Plt Count 137 L (140-400) K/mcL MPV 11.5 (9.4-12.4) fL Immature Gran % 1.9 (0-4) % Seg Neutrophils % 80.9 % Lymphocytes % 12.3 % Monocytes % 3.8 % Eosinophils % 0.2 % Basophils % 0.9 % Neutrophils # 8.2 (1.6-8.9) K/mcL Lymphocytes # 1.2 (0.6-4.6) K/mcL Monocytes # 0.4 (0.0-1.3) K/mcL Eosinophils # 0.0 (0.0-0.6) K/mcL Basophils # 0.1 (0.0-0.2) K/mcL Nucleated RBCs/100 WBC 0.3 H (0) /100 WBC APTT 38.6 H (26.0-36.0) Seconds Sodium 143 (136-145) mEq/L Potassium 4.2 (3.5-5.1) mEq/L Chloride 105 (98-107) mEq/L Carbon Dioxide 18 L (23-29) mEq/L BUN 20 (8-23) mg/dL Creatinine 1.31 H (0.60-1.20) mg/dL Est GFR ( Amer) 50 L (> 60) Est GFR (Non-Af Amer) 41 L (> 60) BUN/Creatinine Ratio 15 (6-26) Glucose 172 H (70-105) mg/dL Calculated Osmolality 303 H (280-300) Calcium 9.2 (8.6-10.3) mg/dL Total Bilirubin 1.7 H (0.3-1.0) mg/dL AST 56 H (13-39) Units/L ALT 19 (7-52) Units/L Alkaline Phosphatase 112 H (34-104) Units/L Troponin I 0.13 H* (< 0.04) ng/mL B-Natriuretic Peptide (Less than 100) pg/mL Serum Total Protein 5.9 L (6.4-8.9) g/dL Albumin 3.6 (3.5-5.7) g/dL Globulin 2.3 L (2.4-3.5) g/dL Albumin/Globulin Ratio 1.6 (1.1-2.2) 12/23/18 Range/Units 15:36 WBC (4.3-11.1) K/mcL RBC (3.82-4.97) M/mcL Hgb (11.5-15.4) g/dL Hct (35.3-44.9) % MCV (83.0-100.0) fL MCH (28.0-33.3) pg MCHC (31.6-35.5) g/dL RDW (11.5-14.5) % Plt Count (140-400) K/mcL MPV (9.4-12.4) fL Immature Gran % (0-4) % Seg Neutrophils % % Lymphocytes % % Monocytes % % Eosinophils % % Basophils % % Neutrophils # (1.6-8.9) K/mcL Lymphocytes # (0.6-4.6) K/mcL Monocytes # (0.0-1.3) K/mcL Eosinophils # (0.0-0.6) K/mcL Basophils # (0.0-0.2) K/mcL Nucleated RBCs/100 WBC (0) /100 WBC APTT (26.0-36.0) Seconds Sodium (136-145) mEq/L Potassium (3.5-5.1) mEq/L Chloride (98-107) mEq/L Carbon Dioxide (23-29) mEq/L BUN (8-23) mg/dL Creatinine (0.60-1.20) mg/dL Est GFR ( Amer) (> 60) Est GFR (Non-Af Amer) (> 60) BUN/Creatinine Ratio (6-26) Glucose (70-105) mg/dL Calculated Osmolality (280-300) Calcium (8.6-10.3) mg/dL Total Bilirubin (0.3-1.0) mg/dL AST (13-39) Units/L ALT (7-52) Units/L Alkaline Phosphatase (34-104) Units/L Troponin I (< 0.04) ng/mL B-Natriuretic Peptide 1332 H (Less than 100) pg/mL Serum Total Protein (6.4-8.9) g/dL Albumin (3.5-5.7) g/dL Globulin (2.4-3.5) g/dL Albumin/Globulin Ratio (1.1-2.2) Attestation Statement - Attestation Attestation: This documentation is done with the assistance of Dragon dictation. Despite efforts made to ensure accuracy, there may be inaccuracies in rock crushing machine operator or spelling and typographical errors. I examined this patient and my medical decision-making was reviewed with the Resident Physician. I agree with the documented findings, disposition and treatment plan as described except to the extent set forth below. Patient seen and evaluated today by Dr. Moore and myself I agree with his evaluation and management plan, supervise care the patient's stay. Patient was at the cancer center today she has got laryngeal carcinoma which is doing better. She also has lung cancer surgery treatment today her blood pressure dropped down low she is also dyspneic using her sats in the mid 80s and she dropped on the eighth 80%. Sats are still low she says she is a little short of breath but her blood pressure was better once the medics arrived there. She has been off her Xarelto for over a month. So were worried that she could have a PE we will scan her ch est check labs reassess most likely she will need admission.
--- NOTE | 2018-12-23 15:14 | Emergency Department Note ---
Disposition Clinical Impression: COPD exacerbation, Hypoxia, NSTEMI (non-ST elevated myocardial infarction) Sepsis Qualifiers: Sepsis type: sepsis due to unspecified organism Qualified Code(s): A41.9 - Sepsis, unspecified organism Pneumonia Qualifiers: Pneumonia type: due to unspecified organism Laterality: right Lung location: lower lobe of lung Qualified Code(s): J18.1 - Lobar pneumonia, unspecified organism Lung cancer Qualifiers: Laterality: right Lung location: lower lobe of lung Qualified Code(s): C34.31 - Malignant neoplasm of lower lobe, right bronchus or lung Disposition: Admitted As Inpatient Condition: Serious Referrals: Michel Giron MD [Primary Care Provider] - Forms: ED Satisfaction Letter Time of Disposition: 19:24 SOB HPI - General Chief Complaint: ED Shortness of Breath/Dyspnea Stated Complaint: LIZZY Time Seen by Provider: 12/23/18 15:02 Source: patient, EMS Mode of arrival: EMS Limitations: no limitations Nursing Notes Reviewed: Yes Vital Signs Reviewed: Yes - History of Present Illness 63-year-old female with history of COPD, PE, lung cancer, laryngeal cancer currently undergoing chemotherapy at [facility] arrives to the emergency department after receiving a new medication and was noted to be more hypoxic than her baseline 85% on 4 L nasal cannula as well as hypotensive. Her systolic pressures in the 60s. This was a transient episode. EMS arrived to bring the patient to the emergency department and hypertension hypoxia has subsequently resolved. The patient arrives to the emergency department in no acute distress. Patient has her baseline 85% on 4 L nasal c annula and is not complaining of any other complaints. The patient states that she was previously on Xarelto for anticoagulation but she states she ran out has not had it for roughly 1 month. The patient is complaining of bilateral lower extremity swelling and difficulty breathing. The patient denies any other complaints at this time. She is resting comfortably in the room. She is in no respiratory distress despite her 85% on 4 L nasal cannula which apparently is baseline for her according to the patient and EMS. No other acute complaints noted at this time. - Related Data Home Medications Medication Instructions Recorded Confirmed Albuterol Sulfate [Ventolin Hfa] 2 puff IH Q4H PRN 10/02/17 12/23/18 Aspirin 325 mg PO DAILY 10/02/17 12/23/18 Furosemide [Lasix] 20 mg PO TID 10/02/17 12/23/18 Ipratropium/Albuterol Neb [Duoneb] 3 ml IH Q6H PRN 10/02/17 12/23/18 Lovastatin 40 mg PO HS 10/02/17 12/23/18 Oxygen 4 l NS AD 10/02/17 12/23/18 Potassium Chloride [Klor-Con 10] 5 meq PO DAILY 10/02/17 12/23/18 Fluticasone/Salmeterol [Advair 1 puff IH BID 08/08/18 12/23/18 250-50 Diskus] Levalbuterol HCl [Xopenex] 1.25 mg IH Q6H 09/25/18 12/23/18 Metoprolol Succinate [Toprol Xl] 25 mg PO DAILY 09/25/18 12/23/18 Insulin Glargine,Hum.rec.anlog 5 unit SQ HS 11/11/18 12/23/18 [Basaglar Kwikpen U-100] Previous Rx's Medication Instructions Recorded Rivaroxaban [Xarelto] 20 mg PO DAILY #60 tablet 08/12/18 Promethazine [Phenergan] 25 mg PO Q6HR PRN #30 tablet 12/23/18 Allergies Allergy/AdvReac Type Severity Reaction Status Date / Time Penicillins [PCN] Allergy Mild Hives Verified 12/04/18 13:41 All systems ED: reviewed and negative except as stated. Constitutional: Reports: weakness. Denies: fever, chills ENT ED: Denies: dysphagia Cardiovascular: Reports: dyspnea on exertion. Denies: chest pain, palpitations Respiratory: Reports: cough, dyspnea. Denies: wheezes Gastrointestinal: Denies: abdominal pain, nausea, vomiting Genitourinary: Denies: urgency, dysuria Musculoskeletal: Denies: back pain, neck pain Integumentary: Denies: rash Neurological: Reports: weakness. Denies: headache, confusion Past Medical History - Past Medical History Attestation: Yes The following information was validated with the patient. Source: patient, old records reviewed Medical history: Reports: cancer, diabetes, hypertension, other Surgical history: Reports: appendectomy, cataract Psychiatric history: Reports: no psych history - Social History Smoking Status: 2nd Hand Smoke Exposure Smokeless Tobacco Status: No Alcohol use: Reports: none Drug use: Reports: none Physical Exam - General Limitations: no limitations General appearance: alert, in no apparent distress - Head Head exam: atraumatic, normocephalic, normal inspection - Eye Eye exam: Present: normal appearance, PERRL, EOMI - ENT ENT exam: normal exam, normal oropharynx, mucous membranes moist - Neck Neck exam: Present: normal inspection, full ROM, trachea midline - Chest Chest inspection: Present: normal inspection, symmetric chest wall rise - Respiratory Respiratory exam: Present: normal lung sounds bilaterally. Absent: respiratory distress, wheezes, accessory muscle use - Cardiovascular Cardiovascular exam: Present: regular rate, normal rhythm, normal heart sounds - Abdominal Exam Abdominal exam: Present: soft, Non-Tender. Absent: tenderness, distention, guarding, rebound, rigidity - Extremities Exam Extremities exam: Present: full ROM, normal capillary refill, pedal edema (1+ nonpitting). Absent: tenderness - Neurological Exam Neurological exam: Present: alert, oriented X3 - Skin Skin exam: Present: warm, dry, intact, normal color Course Vital Signs Temperature 94.9 F L 12/23/18 15:48 Pulse Rate 89 12/23/18 15:48 Respiratory Rate 21 12/23/18 15:48 Blood Pressure 105/80 12/23/18 15:48 O2 Sat by Pulse Oximetry 83 12/23/18 15:48 Temperature 98.7 F 12/23/18 18:12 Pulse Rate 84 12/23/18 17:54 Respiratory Rate 29 12/23/18 18:05 Blood Pressure 107/73 12/23/18 17:54 O2 Sat by Pulse Oximetry 94 12/23/18 18:05 Oxygen Delivery Oxygen Delivery CPAP Mask O2 Shortness of Breath/Dyspnea - [facility] Narrative Medical decision making narrative: Patient's workup in the emergency department demonstrates an increase in interval size of the mass in the right long as well as what appears to be a right pulmonary effusion versus pneumonia. Given the patient's mild hypotension is been transient combined with the difficulty breathing combined with the patient's elevated troponin and mild an elevation of the bilirubin I am concerned about sepsis. Blood cultures were obtained., The patient was started on cefepime, vancomycin. The patient did not receive 30 mL/kg secondary to elevated BNP and concern for heart failure as well as R Baker concerning findings for pulmonary edema. The patient was started on IV fluids. The patient's blood pressure has improved on its own and systolic blood pressure is 107 at this time. The patient has not been tachycardic during this entire ED visit. The patient will be admitted to the hospital. The patient was placed on BiPAP secondary to the pulmonary edema that was noted on chest x-ray. The patient will be admitted to the hospitalist at this time. Accepted by Dr. Guardado. - Lab Data Lab results reviewed: Yes I reviewed the patient's lab results. Result diagrams: 12/23/18 15:36 12/23/18 15:36 Lab Results 12/23/18 12/23/18 12/23/18 Range/Units 15:36 15:36 15:36 WBC 10.1 (4.3-11.1) K/mcL RBC 5.34 H (3.82-4.97) M/mcL Hgb 15.8 H (11.5-15.4) g/dL Hct 51.2 H (35.3-44.9) % MCV 95.9 (83.0-100.0) fL MCH 29.6 (28.0-33.3) pg MCHC 30.9 L (31.6-35.5) g/dL RDW 14.5 (11.5-14.5) % Plt Count 137 L (140-400) K/mcL MPV 11.5 (9.4-12.4) fL Immature Gran % 1.9 (0-4) % Seg Neutrophils % 80.9 % Lymphocytes % 12.3 % Monocytes % 3.8 % Eosinophils % 0.2 % Basophils % 0.9 % Neutrophils # 8.2 (1.6-8.9) K/mcL Lymphocytes # 1.2 (0.6-4.6) K/mcL Monocytes # 0.4 (0.0-1.3) K/mcL Eosinophils # 0.0 (0.0-0.6) K/mcL Basophils # 0.1 (0.0-0.2) K/mcL Nucleated RBCs/100 WBC 0.3 H (0) /100 WBC APTT 38.6 H (26.0-36.0) Seconds Sodium 143 (136-145) mEq/L Potassium 4.2 (3.5-5.1) mEq/L Chloride 105 (98-107) mEq/L Carbon Dioxide 18 L (23-29) mEq/L BUN 20 (8-23) mg/dL Creatinine 1.31 H (0.60-1.20) mg/dL Est GFR ( Amer) 50 L (> 60) Est GFR (Non-Af Amer) 41 L (> 60) BUN/Creatinine Ratio 15 (6-26) Glucose 172 H (70-105) mg/dL Calculated Osmolality 303 H (280-300) Calcium 9.2 (8.6-10.3) mg/dL Total Bilirubin 1.7 H (0.3-1.0) mg/dL AST 56 H (13-39) Units/L ALT 19 (7-52) Units/L Alkaline Phosphatase 112 H (34-104) Units/L Troponin I 0.13 H* (< 0.04) ng/mL B-Natriuretic Peptide (Less than 100) pg/mL Serum Total Protein 5.9 L (6.4-8.9) g/dL Albumin 3.6 (3.5-5.7) g/dL Globulin 2.3 L (2.4-3.5) g/dL Albumin/Globulin Ratio 1.6 (1.1-2.2) 12/23/18 Range/Units 15:36 WBC (4.3-11.1) K/mcL RBC (3.82-4.97) M/mcL Hgb (11.5-15.4) g/dL Hct (35.3-44.9) % MCV (83.0-100.0) fL MCH (28.0-33.3) pg MCHC (31.6-35.5) g/dL RDW (11.5-14.5) % Plt Count (140-400) K/mcL MPV (9.4-12.4) fL Immature Gran % (0-4) % Seg Neutrophils % % Lymphocytes % % Monocytes % % Eosinophils % % Basophils % % Neutrophils # (1.6-8.9) K/mcL Lymphocytes # (0.6-4.6) K/mcL Monocytes # (0.0-1.3) K/mcL Eosinophils # (0.0-0.6) K/mcL Basophils # (0.0-0.2) K/mcL Nucleated RBCs/100 WBC (0) /100 WBC APTT (26.0-36.0) Seconds Sodium (136-145) mEq/L Potassium (3.5-5.1) mEq/L Chloride (98-107) mEq/L Carbon Dioxide (23-29) mEq/L BUN (8-23) mg/dL Creatinine (0.60-1.20) mg/dL Est GFR ( Amer) (> 60) Est GFR (Non-Af Amer) (> 60) BUN/Creatinine Ratio (6-26) Glucose (70-105) mg/dL Calculated Osmolality (280-300) Calcium (8.6-10.3) mg/dL Total Bilirubin (0.3-1.0) mg/dL AST (13-39) Units/L ALT (7-52) Units/L Alkaline Phosphatase (34-104) Units/L Troponin I (< 0.04) ng/mL B-Natriuretic Peptide 1332 H (Less than 100) pg/mL Serum Total Protein (6.4-8.9) g/dL Albumin (3.5-5.7) g/dL Globulin (2.4-3.5) g/dL Albumin/Globulin Ratio (1.1-2.2) - Radiology Data Radiology results reviewed: Yes I reviewed the patient's radiology results. Chest CTA 12/23/18 15:02 IMPRESSION: No evidence of large or central pulmonary embolism. Exam is slightly limited by early contrast phase. Interval increase in size of the right apical mass compared to 09/26/2018. There is also septal thickening in the right lung which could represent lymphangitic metastasis or a component of asymmetric pulmonary edema. New right-sided pleural effusion which could be due to infection or could be malignant. Scattered bilateral airspace disease likely represents superimposed pneumonia. D/ / Dale Cisneros MD / Dale Cisneros MD Interpreting Provider: Dale Cisneros MD Chest X-Ray 12/23/18 15:02 IMPRESSION: Findings suggest congestive heart failure D/ / Johnny Staton MD / Johnny Staton MD Interpreting Provider: Johnny Staton MD - EKG Data EKG attestation: Yes I reviewed and interpreted this EKG. EKG results narrative: Heart rate 91 beats for minute. Normal sinus rhythm. Mild ST depression noted in leads 1, 2. Mild ST elevation noted in V1. Significant EKG change from 09/26/2018. EKG #2: Heart rate 84 beats for minute. Normal sinus rhythm. Not atrial fibrillation despite the EKG read. Right bundle branch block noted. No ST elevation or ST depression noted.
[2018-12-23 16:14] LABS: Basophils # 0.1 K/mcL (0.0-0.2); Basophils % 0.9 %; Eosinophils % 0.2 %; Hematocrit 51.2 % (35.3-44.9); Hemoglobin 15.8 g/dL (11.5-15.4); Immature Granulocytes % 1.9 % (0-4); Lymphocytes # 1.2 K/mcL (0.6-4.6); Lymphocytes % 12.3 %; Mean Corpuscular HGB Conc 30.9 g/dL (31.6-35.5); Mean Corpuscular Hemoglobin 29.6 pg (28.0-33.3); Mean Corpuscular Volume 95.9 fL (83.0-100.0); Mean Platelet Volume 11.5 fL (9.4-12.4); Monocytes # 0.4 K/mcL (0.0-1.3); Monocytes % 3.8 %; Neutrophils # 8.2 K/mcL (1.6-8.9); Nucleated Red Blood Cells 0.3 /100 WBC (0); Platelet Count 137 K/mcL (140-400); Red Blood Count 5.34 M/mcL (3.82-4.97); Red Cell Distribution Width 14.5 % (11.5-14.5); Segmented Neutrophils % 80.9 %
[2018-12-23 16:45] LABS: Albumin 3.6 g/dL (3.5-5.7); Albumin/Globulin Ratio 1.6 (1.1-2.2); Bilirubin,Total 1.7 mg/dL (0.3-1.0); Calcium 9.2 mg/dL (8.6-10.3); Globulin 2.3 g/dL (2.4-3.5); Potassium 4.2 mEq/L (3.5-5.1); Total Protein 5.9 g/dL (6.4-8.9)
[2018-12-23] MEDS ORDERED: Lidocaine -MPF 1% 5 ML AMPUL INFILT ONE (16:56)
[2018-12-23 17:39] LABS: Troponin I 0.13 ng/mL (< 0.04)
[2018-12-23] MEDS ORDERED: Aspirin 325 MG TABLET PO ONE (17:41)
[2018-12-23] MEDS ORDERED: *HR* Enoxaparin 100 MG/ML SYRINGE SQ STA (17:43)
[2018-12-23] MEDS ORDERED: Cefepime HCl 1,000 MG in 0.9 % Sodium Chloride Mini Bag 100 ML IVPB STA (19:06)
[2018-12-23] MEDS ORDERED: Azithromycin 500 MG in D5% in Water 250 ML IVPB ONE (19:06)
[2018-12-23] MEDS ORDERED: 0.9 % Sodium Chloride 500 ML IVC ONE (20:09)
[2018-12-23] MEDS ORDERED: NON-FORMULARY MEDICATION 1 EACH EACH (Oxygen [Oxygen] 4 L) NS SCH (20:15)
--- NOTE | 2018-12-23 21:00 | Internal Med History&Physical ---
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 She was started on a new therapy today in clinic. She was brought in to the ER afterward being more hypoxic than her baseline, found to be 85% on 4L and also hypotensive. It was seemingly transient and improved with fluids. She was also placed on Bipap support. As per her son who is at bedside, she frequently gets more short of breath and hypoxic with physical exertion which is what he witnessed happen today. Her lab work was remarkable for a troponin elevation at 0.13, increase in her serum creatinine to 1.31 from her baseline of 0.7-.09. CTA was done and ruled out PE but on my interpretation showed an increase in size in the right sided pleural effusion as well as enlargement in her right apical lesion. She was given broad spectrum empiric abx in case she had a pneumonia since there was associated consolidation in the setting of hypotension. She was also given a dose of enoxaparin for the elevated troponin. She is now admitted for further care. On my assessment, she reported feeling fatigued, occasionally having chills but no fever and states that her cough is chronic productive of whitish sputum. Past Med Surg Social Fam HX - Past Medical History Medical history: cancer, diabetes, hypertension, other Additional medical history: Lung/Throat CA Psychiatric history: no psych history - Past Surgical History Surgical History: appendectomy, cataract Additional surgical history: cardiac cath, tubal ligation - Social History Smoking Status: 2nd Hand Smoke Exposure Smokeless Tobacco Status: No Alcohol use: none Drug use: none - Family History Mother Hx Family Cancer: Yes Internal Medicine - H&P: Meds Albuterol Sulfate [Ventolin Hfa] 2 puff IH Q4H PRN 10/02/17 [History] Aspirin 325 mg PO DAILY 10/02/17 [History] Furosemide [Lasix] 20 mg PO TID 10/02/17 [History] Ipratropium/Albuterol Neb [Duoneb] 3 ml IH Q6H PRN 10/02/17 [History] Lovastatin 40 mg PO HS 10/02/17 [History] Oxygen 4 l NS AD 10/02/17 [History] Potassium Chloride [Klor-Con 10] 5 meq PO DAILY 10/02/17 [History] Fluticasone/Salmeterol [Advair 250-50 Diskus] 1 puff IH BID 08/08/18 [History] Rivaroxaban [Xarelto] 20 mg PO DAILY #60 tablet 08/12/18 [Rx] Levalbuterol HCl [Xopenex] 1.25 mg IH Q6H 09/25/18 [History] Metoprolol Succinate [Toprol Xl] 25 mg PO DAILY 09/25/18 [History] Insulin Glargine,Hum.rec.anlog [Basaglar Kwikpen U-100] 5 unit SQ HS 11/11/18 [History] Promethazine [Phenergan] 25 mg PO Q6HR PRN #30 tablet 12/23/18 [Rx] Allergy/AdvReac Type Severity Reaction Status Date / Time Penicillins [PCN] Allergy Mild Hives Verified 12/04/18 13:41 All Systems PM: A 10-system review of systems was performed and is negative for pertinent findings except as documented above in the HPI. - Constitutional Vitals: Temp Pulse Resp BP Pulse Ox 98.7 F 84 29 107/73 94 12/23/18 18:12 12/23/18 17:54 12/23/18 18:05 12/23/18 17:54 12/23/18 18:05 Exam: Vitals: Reviewed General: Obese female lying in bed in no acute distress. Skin: Ashen, dry. HEENT: Dry mucous membranes. No conjunctivae pallor. Neck: No JVD. No carotid bruits. No palpable thyroid. Chest: Diminished thoracic expansion. Reduced breath sounds in the right lung field. Heart: Normal S1 & S2; rhythmic. No rubs or murmurs. Abdomen: Non-distended, soft and non-tender to palpation. No peritoneal reaction. Extremities: No calf tenderness. Normal distal pulses. Neurological: Awake, alert and oriented to person, place and time. No focal deficits. Psych: Affect appropriate. Internal Med - H&P Results - Labs CBC & Chem 7: 12/23/18 15:36 12/23/18 15:36 Labs: Short CBC 12/23/18 Range/Units 15:36 WBC 10.1 (4.3-11.1) K/mcL Hgb 15.8 H (11.5-15.4) g/dL Hct 51.2 H (35.3-44.9) % Plt Count 137 L (140-400) K/mcL Neutrophils # 8.2 (1.6-8.9) K/mcL BMP 12/23/18 15:36 Sodium 143 Potassium 4.2 Chloride 105 Carbon Dioxide 18 L BUN 20 Creatinine 1.31 H Glucose 172 H Calcium 9.2 Cardiac Enzymes 12/23/18 Range/Units 15:36 Troponin I 0.13 H* (< 0.04) ng/mL Liver Function 12/23/18 Range/Units 15:36 Total Bilirubin 1.7 H (0.3-1.0) mg/dL AST 56 H (13-39) Units/L ALT 19 (7-52) Units/L Alkaline Phosphatase 112 H (34-104) Units/L Albumin 3.6 (3.5-5.7) g/dL - Impressions ITS Impressions Chest CTA 12/23/18 15:02 IMPRESSION: No evidence of large or central pulmonary embolism. Exam is slightly limited by early contrast phase. Interval increase in size of the right apical mass compared to 09/26/2018. There is also septal thickening in the right lung which could represent lymphangitic metastasis or a component of asymmetric pulmonary edema. New right-sided pleural effusion which could be due to infection or could be malignant. Scattered bilateral airspace disease likely represents superimposed pneumonia. D/ / Dale Cisneros MD / Dale Cisneros MD Interpreting Provider: Dale Cisneros MD Chest X-Ray 12/23/18 15:02 IMPRESSION: Findings suggest congestive heart failure D/ / Johnny Staton MD / Johnny Staton MD Interpreting Provider: Johnny Staton MD - Assessment and Plan (1) Acute and chronic respiratory failure with hypoxia Current Visit: Yes Status: Acute Assessment and plan: The patient has acute on chronic hypoxic respiratory failure. Pulmonary embolism was not detected on CTA which was of high consideration given the acuity. The associated hypotension brings concern for an infectious state especially noting her immunocompromised state hence the empiric antimicrobials. Will send urine antigens, sputum culture and mrsa screen. Will also check a respiratory virus panel. She does not have pleuritic chest pain, fever, leukocytosis or cough productive of discolored sputum which would be more typical however she may manifest differently hence we will keep her on empiric coverage in the interim pending further results. Her worsening hypoxia may also be due to her progressive malignancy and effusion and therefore may benefit from a therapeutic thoracentesis. (2) Elevated troponin Current Visit: Yes Status: Acute Assessment and plan: Although it is seen on old records that she has had fleeting elevation in the past in the presence of acute illness, she has a more significant elevation this time around. Unclear if this may be secondary to her hypotensive state on presentation. She has no clinical signs of ACS and her EKG shows RBBB which is unchanged from her baseline. Will monitor her on telemetry and continue to trend these enzymes as we observe her clinical status. She has received empiric anticoagulant/antiplatelet therapy in the interim. (3) MARIE (acute kidney injury) Current Visit: Yes Status: Resolved Assessment and plan: The patient clinically appears dehydrated and coupled with her hypotension seems to be the cause of her MARIE. Will provide fluid resuscitation and recheck her BMP in the morning. (4) Squamous cell carcinoma of lung Current Visit: Yes Status: Chronic Assessment and plan: Seemingly progressive as noted by increasing size and worsening effusion which I presume to be malignant in etiology. Care as per oncology. Prognosis guarded. Patient wishes to be full code. Qualifiers: Laterality: right Qualified Code(s): C34.91 - Malignant neoplasm of unspecified part of right bronchus or lung (5) Diabetes mellitus Current Visit: Yes Status: Chronic Assessment and plan: We will place on insulin sliding scale in the interim. 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 Qualifiers: COPD type: emphysema Emphysema type: centrilobular Qualified Code(s): J43.2 - Centrilobular emphysema - Time Spent With Patient Total time spent is greater than 50% in coordination of care (as documented) at patient's floor/unit and/or counseling patient: Greater than 35 minutes
[2018-12-23] MEDS ORDERED: Dextrose Gel 15 GM/37.5 ML TUBE PO PRN ×2 (22:00)
[2018-12-23] MEDS: Budesonide/Formoterol 80/4.5 MDI IH SCH (22:50)
[2018-12-23] MEDS: 0.9 % Sodium Chloride 1,000 ML IVC SCH (23:18)
[2018-12-23] MEDS: Insulin DETEMIR 100 UNIT/ML X5UNITS SQ SCH (23:57)
[2018-12-23] MEDS: Piperacillin/Tazobactam 3.375 GM in 0.9 % Sodium Chloride Mini Bag 100 ML IVPB SCH (23:58)
[2018-12-24] MEDS: 0.9 % Sodium Chloride 1,000 ML IVC SCH ×4 (00:11→16:36)
[2018-12-24] MEDS: Insulin LISPRO 300 UNITS/3 ML VIAL SQ SCH ×3 (00:12→12:29)
--- NOTE | 2018-12-24 00:45 | Event Note ---
Addendum entered and electronically signed by Arsen Rodriguez CNP 12/24/18 07:11: Alerted of critical troponin of 3.81. Discussed pt. w/ Elabor with recommendation to begin low dose heparin gtt now w/o initial bolus. Pt. had weight-based dose of Lovenox at 17:43. Will continue to monitor. Original Note: Date of Encounter: 12/24/18 Time of Encounter: 00:43 Notable increase in the patient's troponin is noted. She remains clinically stable although her hemodynamics continue to show borderline hypotension. Will hold any BP lowering medications, repeat an EKG for evaluation and check another troponin. Given the elevation would prefer to have her on heparin drip pending cardiology consultation however she already received a dose of enoxaparin at ~2000hrs and therefore should not be started on anything else for another 12 hours at least.
[2018-12-24 06:52] LABS: Calcium 8.9 mg/dL (8.6-10.3); Potassium 4.3 mEq/L (3.5-5.1)
[2018-12-24] MEDS ORDERED: *HR* Heparin 5,000 UNIT/ML VIAL IVP PRN ×2 (07:08)
[2018-12-24] MEDS: Budesonide/Formoterol 80/4.5 MDI IH SCH ×2 (07:54→20:24)
[2018-12-24] MEDS: Aspirin 325 MG TABLET PO SCH (08:21)
[2018-12-24] MEDS: Piperacillin/Tazobactam 3.375 GM in 0.9 % Sodium Chloride Mini Bag 100 ML IVPB SCH ×2 (08:41→16:40)
[2018-12-24] MEDS: Potassium Chloride Elixir 20 MEQ/15 ML UDC PO SCH (08:42)
--- NOTE | 2018-12-24 10:04 | Cardiology Consult Note ---
Date of Encounter: 12/24/18 Time of Encounter: 09:56 Assessment and Plan (1) NSTEMI (non-ST elevated myocardial infarction) Current Visit: Yes Status: Acute 63-year-old diabetic female presents with elevated troponin levels 0.13 --> 1.28--> 3.81 in the setting of acute kidney injury. EKG revealed sinus rhythm with intraventricular conduction delay. She was started on a heparin drip. Continue medical management. Will continue to follow. (2) (HFpEF) heart failure with preserved ejection fraction Current Visit: Yes Status: Acute Patient with dyspnea on exertion and BNP level was elevated at 1332. Echo 09/26/18 revealed LVEF 50-55%, normal LV chamber size and systolic function, mild concentric left ventricular hypertrophy, mild left ventricular diastolic dysfunction, mildly dilated right ventricle with mild hypokinesis, mildly dilated right atrium, mild mitral regurgitation, moderate tricuspid regurgitation, and severe pulmonary hypertension. CXR and CT chest revealed right-sided pleural effusion. She was started on BiPAP therapy. Unable to diurese secondary to acute kidney injury. Qualifiers: Heart failure chronicity: acute on chronic Qualified Code(s): I50.33 - Acute on chronic diastolic (congestive) heart failure (3) MARIE (acute kidney injury) Current Visit: Yes Status: Acute Management per primary team. (4) Acute and chronic respiratory failure with hypoxia Current Visit: Yes Status: Acute Management per primary team (5) Essential hypertension Current Visit: Yes Status: Chronic Patient is hypotensive. Hold home antihypertensive therapy at this time. (6) Squamous cell carcinoma of lung Current Visit: Yes Status: Chronic Management per primary team. Qualifiers: Laterality: right Qualified Code(s): C34.91 - Malignant neoplasm of unspecified part of right bronchus or lung (7) T2DM (type 2 diabetes mellitus) Current Visit: Yes Status: Chronic Management per primary team. 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 All questions were answered. Thank you for involving us in the care of your patient. Please call with any questions. History of Present Illness Consult date: 12/23/18 Requesting physician: Arsen Moore Consult reason: NSTEMI Chief complaint: Hypoxia History of present illness: Ms. Kumar is a 63 year old female with a past medical history of stage III squamous cell lung cancer, diastolic CHF, pulmonary hypertension, chronic hypoxic respiratory failure with 4 L home oxygen dependence, and DM type 2 who was sent to the ED by her oncologist secondary to hypoxia with SPO2 85% on 4 L oxygen. Patient's last dose of chemoradiotherapy was 09/03/18 due to noncompliance. Upon arrival to the ED, patient reported being more short of breath than baseline, dyspneic on exertion, and labs revealed troponin elevation with an increase in her serum creatinine to 1.75 from her baseline of 0.7-.09. Imaging revealed right-sided pleural effusion and BNP level was elevated at 1332. She was started on a heparin drip and BiPAP therapy. Cardiology was consulted for further evaluation. Past Med Surg Social Fam HX - Past Medical History Medical history: cancer, diabetes, hypertension, other Additional medical history: Lung/Throat CA Psychiatric history: no psych history - Past Surgical History Surgical History: appendectomy, cataract Additional surgical history: cardiac cath, tubal ligation - Social History Smoking Status: 2nd Hand Smoke Exposure Smokeless Tobacco Status: No Alcohol use: none Drug use: none - Family History Mother Adopted: [place]: Adriana Living Status: Age at : 57 Hx Family Cardiac Disorders: Yes Hx Family Respiratory Disorders: No Hx Family Cancer: Yes Hx Family GI Disorders: No Hx Family Genitourinary Disorders: No Hx Family Endocrine Disorder: Yes Hx Family Musculoskeletal Disorders: No Hx Family Neuromuscular Disorders: No Hx Family Neurologic Disorders: No Hx Family Autoimmune Disorders: No Medications and Allergies Albuterol Sulfate [Ventolin Hfa] 2 puff IH Q4H PRN 10/02/17 [History] Aspirin 325 mg PO DAILY 10/02/17 [History] Furosemide [Lasix] 20 mg PO TID 10/02/17 [History] Ipratropium/Albuterol Neb [Duoneb] 3 ml IH Q6H PRN 10/02/17 [History] Lovastatin 40 mg PO HS 10/02/17 [History] Oxygen 4 l NS AD 10/02/17 [History] Potassium Chloride [Klor-Con 10] 5 meq PO DAILY 10/02/17 [History] Fluticasone/Salmeterol [Advair 250-50 Diskus] 1 puff IH BID 08/08/18 [History] Rivaroxaban [Xarelto] 20 mg PO DAILY #60 tablet 08/12/18 [Rx] Levalbuterol HCl [Xopenex] 1.25 mg IH Q6H 09/25/18 [History] Metoprolol Succinate [Toprol Xl] 25 mg PO DAILY 09/25/18 [History] Insulin Glargine,Hum.rec.anlog [Basaglar Kwikpen U-100] 5 unit SQ HS 11/11/18 [History] Promethazine [Phenergan] 25 mg PO Q6HR PRN #30 tablet 12/23/18 [Rx] Allergy/AdvReac Type Severity Reaction Status Date / Time Penicillins [PCN] Allergy Mild Hives Verified 12/04/18 13:41 All Systems Review: The remainder of the systems were reviewed and are negative - Constitutional Constitutional: fatigue, weakness, no chills - EENT Nose, mouth and throat: no dysphagia, no sore throat - Cardiovascular Cardiovascular: dyspnea at rest, dyspnea on exertion, no chest pain at rest - Gastrointestinal Gastrointestinal: no constipation, no diarrhea, no nausea - Genitourinary Genitourinary: no dysuria, no hematuria - Musculoskeletal Musculoskeletal: no back pain, no myalgias - Integumentary Integumentary: no erythema, no rash - Neurological Neurological: no numbness, no tingling - Psychiatric Psychiatric: no anxiety, no depression Physical Examination Vital Signs, Last 4 Hours Temp Pulse Resp BP Pulse Ox 12/24/18 07:55 25 89 12/24/18 07:12 97.3 F L 77 25 108/72 86 General: Conversant (mild distress wearing BiPap) HEENT: Atraumatic, Normocephaly, Other (mucous membranes dry) Neck: Normal carotid pulses, Other (supple) Cardiac: Reg Rate and Rhythm Lungs: Other (coarse breath sounds) Neuro: Alert and responsive, No focal deficits noted Abdomen: Soft, Non-Tender Skin: No rashes noted on visualized skin Musculoskeletal: No Chest Wall Tenderness Extremities: No Clubbing, No Cyanosis, Normal Pulses, Other (1+ pedal edema) Results 12/24/18 11:20 12/24/18 05:23 Lab Results 12/23/18 12/23/18 12/23/18 15:36 15:36 15:36 WBC 10.1 Hgb 15.8 H Hct 51.2 H Plt Count 137 L APTT 38.6 H Sodium 143 Potassium 4.2 Chloride 105 Carbon Dioxide 18 L BUN 20 Creatinine 1.31 H Glucose 172 H Calcium 9.2 Total Bilirubin 1.7 H AST 56 H ALT 19 Alkaline Phosphatase 112 H Troponin I 0.13 H* B-Natriuretic Peptide 12/23/18 12/23/18 12/24/18 15:36 22:38 05:23 WBC Hgb Hct Plt Count APTT Sodium Potassium Chloride Carbon Dioxide BUN Creatinine Glucose Calcium Total Bilirubin AST ALT Alkaline Phosphatase Troponin I 1.28 H* 3.81 H* B-Natriuretic Peptide 1332 H 12/24/18 05:23 WBC Hgb Hct Plt Count APTT Sodium 141 Potassium 4.3 Chloride 106 Carbon Dioxide 23 BUN 29 H Creatinine 1.75 H Glucose 168 H Calcium 8.9 Total Bilirubin AST ALT Alkaline Phosphatase Troponin I B-Natriuretic Peptide - Imaging and Cardiology Chest Xray: report reviewed Echo: report reviewed - EKG Interpretation EKG results cardiology: personally reviewed, sinus rhythm (sinus rhythm with intraventricular conduction delay) Consult Discharge Plan - Plan Referrals: Michel Giron MD [Primary Care Provider] -
[2018-12-24 10:20] LABS: Adenovirus Not Detected (Not Detect); Bordetella Pertussis Not Detected (Not Detect); Chlamydophila pneumoniae Not Detected (Not Detect); Coronavirus 229E Not Detected (Not Detect); Coronavirus HKU1 Not Detected (Not Detect); Coronavirus NL63 Not Detected (Not Detect); Coronavirus OC43 Not Detected (Not Detect); Human Metapneumovirus Not Detected (Not Detect); Human Rhinovirus/Enterovirus Not Detected (Not Detect); Influenza A Subtype 2009 H1 Not Detected (Not Detect); Influenza A Untypeable Not Detected (Not Detect); Influenza B Not Detected (Not Detect); Mycoplasma pneumoniae Not Detected (Not Detect); Parainfluenza Virus 1 Not Detected (Not Detect); Parainfluenza Virus 2 Not Detected (Not Detect); Parainfluenza Virus 3 Not Detected (Not Detect); Parainfluenza Virus 4 Not Detected (Not Detect); Respiratory Syncytial Virus Not Detected (Not Detect)
[2018-12-24 11:38] LABS: Hematocrit 46.6 % (35.3-44.9); Hemoglobin 14.3 g/dL (11.5-15.4); Mean Corpuscular HGB Conc 30.7 g/dL (31.6-35.5); Mean Corpuscular Hemoglobin 29.3 pg (28.0-33.3); Mean Corpuscular Volume 95.5 fL (83.0-100.0); Mean Platelet Volume 11.4 fL (9.4-12.4); Platelet Count 101 K/mcL (140-400); Red Blood Count 4.88 M/mcL (3.82-4.97); Red Cell Distribution Width 14.6 % (11.5-14.5)
[2018-12-24 11:54] LABS: Heparin anti-factor XA UFH 0.23 IU/mL (0.30-0.70); INR 1.7; Prothrombin Time 18.8 Seconds (9.4-12.1)
[2018-12-24] MEDS: Heparin 25,000 UNIT/250 ML D5W 25,000 UNIT/250 ML IV.SOLN IVC SCH (12:09)
--- NOTE | 2018-12-24 15:34 | Oncology Inp Consult Note ---
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 Status post concurrent chemoradiotherapy to the lung/glottic larynx with weekly cisplatin/paclitaxel x6 doses completed 09/03/2018. Chemotherapy course was abbreviated secondary to patient noncompliance. She was noted to have persistent disease involving the primary as well as mediastinal lymph nodes by PET/CT 11/26/2018 and recommended to start palliative intent dose attenuated carboplatin, abraxane and pembrolizumab initiated 12/23/2018. Recommended to present to ER following treatment for hypoxia and hypotension. CTA which noted interval increase in size of the right apical mass compared to 09/26/2018, septal thickening in the right lung which could represent lymphangitic metastasis or a component of asymmetric pulmonary edema, New right- sided pleural effusion, scattered bilateral airspace disease likely represents superimposed pneumonia, negative for PE. Plan: Currently on bipap, she is hypoxic on 15L, discussed potential consideration of therapeutic thoracentesis-appears small and may not be amendable to drainage- patients daughter at bedside declining thoracentesis Hypoxia secondary to malignancy vs. infection/PNA vs. pleural effusion Pneumonia workup and treatment per hospitalist-currently on zosyn We will continue to monitor her course of recovery, per prior conversations with patient/provider team she has asked to remain full code (2) Squamous cell carcinoma of lung Status: Chronic Assessment and plan: See plan above (3) Acute and chronic respiratory failure with hypoxia Status: Acute (4) Elevated troponin Status: Acute Assessment and plan: Cardiology consulted for concern for NSTEMI Currently denies chest pain Recommend echo and medical management, currently on heparin gtt BNP level elevated at 1332. Echo 09/26/18 revealed LVEF 50-55%, CT chest revealed right-sided pleural effusion--- 2/2 fluid overload vs. infection vs. malignancy Unable to diurese secondary to acute kidney injury. - Data of Consult Patient: known to practice within the last 3 years Consult date: 12/24/18 Requesting Physician: José Luis Guardado MD Primary Care Provider: Michel Giron MD - Consult Narrative Reason for consult: Squamous cell carcinoma lung and glottic larynx History of present illness: Ms. 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 Status post concurrent chemoradiotherapy to the lung/glottic larynx with weekly cisplatin/paclitaxel x6 doses completed 09/03/2018. Chemotherapy course was abbreviated secondary to patient noncompliance. She was noted to have persistent disease involving the primary as well as mediastinal lymph nodes by PET/CT 11/26/2018 and recommended to start palliative intent dose attenuated carboplatin, abraxane and pembrolizumab initiated 12/23/2018. Following treatment, she was noted to have hypotension and hypoxia while on 4L O2 per NC, she was asked to present to the ER for further evaluation. She had a CTA which noted interval increase in size of the right apical mass compared to 09/26/2018, septal thickening in the right lung which could represent lymphangitic metastasis or a component of asymmetric pulmonary edema, New right- sided pleural effusion, scattered bilateral airspace disease likely represents superimposed pneumonia, negative for PE. She was noted to have an elevated direct bilirubin and elevated troponin. Suspect underlying sepsis. Cardiology has been consulted for concern for NSTEMI. Past Med Surg Social Fam HX - Past Medical History Medical history: cancer, diabetes, hypertension, other Additional medical history: Lung/Throat CA Psychiatric history: no psych history - Past Surgical History Surgical History: appendectomy, cataract Additional surgical history: cardiac cath, tubal ligation - Social History Smoking Status: 2nd Hand Smoke Exposure Smokeless Tobacco Status: No Alcohol use: none Drug use: none - Family History Mother Adopted: [place]: Adriana Living Status: Age at : 57 Hx Family Cardiac Disorders: Yes Hx Family Respiratory Disorders: No Hx Family Cancer: Yes Hx Family GI Disorders: No Hx Family Genitourinary Disorders: No Hx Family Endocrine Disorder: Yes Hx Family Musculoskeletal Disorders: No Hx Family Neuromuscular Disorders: No Hx Family Neurologic Disorders: No Hx Family Autoimmune Disorders: No Medications and Allergies RX: Albuterol Sulfate [Ventolin Hfa] 2 puff IH Q4H PRN 10/02/17 [History] RX: Aspirin 325 mg PO DAILY 10/02/17 [History] RX: Furosemide [Lasix] 20 mg PO TID 10/02/17 [History] RX: Ipratropium/Albuterol Neb [Duoneb] 3 ml IH Q6H PRN 10/02/17 [History] RX: Lovastatin 40 mg PO HS 10/02/17 [History] RX: Oxygen 4 l NS AD 10/02/17 [History] RX: Potassium Chloride [Klor-Con 10] 5 meq PO DAILY 10/02/17 [History] RX: Fluticasone/Salmeterol [Advair 250-50 Diskus] 1 puff IH BID 08/08/18 [History] RX: Rivaroxaban [Xarelto] 20 mg PO DAILY #60 tablet 08/12/18 [Rx] RX: Levalbuterol HCl [Xopenex] 1.25 mg IH Q6H 09/25/18 [History] RX: Metoprolol Succinate [Toprol Xl] 25 mg PO DAILY 09/25/18 [History] Insulin Glargine,Hum.rec.anlog [Basaglar Kwikpen U-100] 5 unit SQ HS 11/11/18 [History] Promethazine [Phenergan] 25 mg PO Q6HR PRN #30 tablet 12/23/18 [Rx] Allergy/AdvReac Type Severity Reaction Status Date / Time Penicillins [PCN] Allergy Mild Hives Verified 12/04/18 13:41 ROS unobtainable: other (due to Bipap) Oncology - Exam - Constitutional General appearance: cooperative, no acute distress, no febrile - Head Head exam: Present: atraumatic - ENT ENT exam: Present: mucous membranes moist, normal oropharynx - Respiratory Respiratory exam: Present: wheezes. Absent: respiratory distress - GI/Abdominal GI/Abdominal exam: Present: normal bowel sounds, soft. Absent: tenderness - Extremities Exam Extremities exam: Present: normal inspection. Absent: calf tenderness - Neurological Exam Neurological exam: Present: alert, no focal deficits Additional comments: on bipap, unable to assess orientation currently, patient follows commands and nods head yes/no to questions - Psychiatric Psychiatric exam: Present: normal affect - Skin Skin exam: Present: dry, intact, normal color, warm Consult Discharge Plan - Plan Referrals: Michel Giron MD [Primary Care Provider] - Inpatient Charges Provider: Dr. Nicole Duncan <Gilberto Duncan - Last Filed: 12/24/18 17:31> Date of Encounter: 12/24/18 - Data of Consult Requesting Physician: José Luis Guardado MD Primary Care Provider: Michel Giron MD - Attending Attestation Patient was hospitalized after low blood pressure in the infusion clinic yesterday. She had complaints of nausea and had questionable reaction to keytr uda. She has acute kidney injury, elevated troponin, reimaging studies note showed no pulmonary embolus some but left-sided effusion congestion. She has improved clinically today still needing high flow oxygen, Lasix being administered for diuresis. Blood pressure is improving. She is on heparin, will hold off on thoracentesis per family's request. We will continue to monitor patient clinically. I examined this patient and my medical decision-making was reviewed with the Advanced Practice Nurse, Linda Blunt. I agree with the documented findings, disposition and treatment plan as described except to the extent set forth below. Inpatient Charges Provider: Dr. Nicole Duncan Consult - Inpatient: [id number]
--- NOTE | 2018-12-24 15:51 | Electrocardiograph Report ---
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
--- NOTE | 2018-12-24 16:38 | Internal Med Progress Note ---
Hospitalist Progress Note - Encounter Date of Encounter: 12/24/18 Time of Encounter: 16:36 - Subjective Interval History: Pt on BiPAP. Daughter and sister at bedside. Family states she does not report chest pain. Pt afebrile, no N/V or diarrhea. - Exam Vitals: Temp Pulse Resp BP Pulse Ox 97.7 F 81 21 106/76 89 12/24/18 16:06 12/24/18 16:06 12/24/18 16:06 12/24/18 16:06 12/24/18 16:06 Exam: Vitals: Reviewed General: Obese female lying in bed in no acute distress. Skin: Ashen, dry. HEENT: Dry mucous membranes. No conjunctivae pallor. Neck: No JVD. No carotid bruits. No palpable thyroid. Chest: Diminished thoracic expansion. Reduced breath sounds in the right lung field. Heart: Normal S1 & S2; rhythmic. No rubs or murmurs. Abdomen: Non-distended, soft and non-tender to palpation. No peritoneal reaction. Extremities: No calf tenderness. Normal distal pulses. Neurological: Awake, alert and oriented to person, place and time. No focal de ficits. Psych: Affect appropriate. - Assessment and Plan (1) Acute and chronic respiratory failure with hypoxia Current Visit: Yes Status: Acute Assessment and Plan: Pt currently on BiPAP. Respiratory panel negative. Blood cultures incubating. Sputum culture ordered. Legionella and strep ordered and results pending. Pt wishes to remain full code. (2) (HFpEF) heart failure with preserved ejection fraction Current Visit: Yes Status: Acute Assessment and Plan: Will start on Lasix 40 mg IV BID. Will monitor renal function. Fluid and Na restriction. Daily weights. Strict I and O's. Chest x ray 12/23/18 XR/XR chest 1V portable IMPRESSION: Findings suggest congestive heart failure (3) NSTEMI (non-ST elevated myocardial infarction) Current Visit: Yes Status: Acute Assessment and Plan: Troponin 3.81. On Heparin gtt. Cardiology saw pt in consult and recommending medical management for now. (4) Squamous cell carcinoma of lung Current Visit: Yes Status: Chronic Assessment and Plan: Seemingly progressive as noted by increasing size and worsening effusion which I presume to be malignant in etiology. Care as per oncology. Prognosis guarded. Patient wishes to be full code. Daughter states pt is s/p chemo and radiation. (5) Essential hypertension Current Visit: Yes Status: Chronic Assessment and Plan: Lopressor 12.5 mg BID (6) MARIE (acute kidney injury) Current Visit: Yes Status: Acute Assessment and Plan: Accoriding to admitting physician, patient clinically appeared dehydrated and coupled with her hypotension seemed to be the cause of her MARIE. Fluid resuscitation ordered but Cr up from 1.31to 1.75. Will hold fluids and recheck her BMP in the morning. (7) T2DM (type 2 diabetes mellitus) Current Visit: Yes Status: Chronic Assessment and Plan: Levemir 5 units QHS and SSI DVT Prophylaxis: Heparin - Summary of Assessment and Plan Summary of Assessment and Plan: History of present illness: Dr. Debby Martinez Jacquelin Kumar is a 63 year old diabetic woman with diastolic heart failure, COPD with pHTN and chronic hypoxic respiratory failure on 4L home oxygen who is currently being managed for stage III squamous cell carcinoma of the right upper lobe of the lung status post concurrent chemoradiotherapy completed 09/03/2018 which was abbreviated secondary to patient noncompliance but has persistent disease. She was started on a new therapy today in clinic. She was brought in to the ER afterward being more hypoxic than her baseline, found to be 85% on 4L and also hypotensive. It was seemingly transient and improved with fluids. She was also placed on Bipap support. As per her son who is at bedside, she frequently gets more short of breath and hypoxic with physical exertion which is what he witnessed happen today. Her lab work was remarkable for a troponin elevation at 0.13, increase in her serum creatinine to 1.31 from her baseline of 0.7-.09. CTA was done and ruled out PE but on my interpretation showed an increase in size in the right sided pleural effusion as well as enlargement in her right apical lesion. She was given broad spectrum empiric abx in case she had a pneumonia since there was associated consolidation in the setting of hypotension. She was also given a dose of enoxaparin for the elevated troponin. She is now admitted for further care. On my assessment, she reported feeling fatigued, occasionally having chills but no fever and states that her cough is chronic productive of whitish sputum. - Time Spent with Patient Total time spent is greater than 50% in coordination of care (as documented) at patient's floor/unit and/or counseling patient: less than 15 minutes Plan of Care Discussed with: patient Internal Medicine: Result - Labs CBC & Chem 7: 12/24/18 11:20 12/24/18 05:23 Labs: Short CBC 12/24/18 Range/Units 11:20 WBC 7.6 (4.3-11.1) K/mcL Hgb 14.3 D (11.5-15.4) g/dL Hct 46.6 H (35.3-44.9) % Plt Count 101 L (140-400) K/mcL BMP 12/23/18 12/24/18 15:36 05:23 Sodium 143 141 Potassium 4.2 4.3 Chloride 105 106 Carbon Dioxide 18 L 23 BUN 20 29 H Creatinine 1.31 H 1.75 H Glucose 172 H 168 H Calcium 9.2 8.9 Cardiac Enzymes 12/23/18 12/23/18 12/24/18 Range/Units 15:36 22:38 05:23 Troponin I 0.13 H* 1.28 H* 3.81 H* (< 0.04) ng/mL Liver Function 12/23/18 Range/Units 15:36 Total Bilirubin 1.7 H (0.3-1.0) mg/dL AST 56 H (13-39) Units/L ALT 19 (7-52) Units/L Alkaline Phosphatase 112 H (34-104) Units/L Albumin 3.6 (3.5-5.7) g/dL - ABG Interpretation ABG results: PT/INR, D-dimer PT 18.8 Seconds (9.4-12.1) H 12/24/18 11:20 - Impressions Impressions Chest CTA 12/23/18 15:02 IMPRESSION: No evidence of large or central pulmonary embolism. Exam is slightly limited by early contrast phase. Interval increase in size of the right apical mass compared to 09/26/2018. There is also septal thickening in the right lung which could represent lymphangitic metastasis or a component of asymmetric pulmonary edema. New right-sided pleural effusion which could be due to infection or could be malignant. Scattered bilateral airspace disease likely represents superimposed pneumonia. 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
--- NOTE | 2018-12-24 16:46 | Electrocardiograph Report ---
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
--- NOTE | 2018-12-24 16:56 | Electrocardiograph Report ---
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
[2018-12-24] MEDS ORDERED: *HR* Rivaroxaban 10 MG TABLET PO SCH (17:00)
[2018-12-24] MEDS ORDERED: Furosemide 40 MG/4 ML VIAL IVP SCH (17:00)
[2018-12-24] MEDS ORDERED: Perflutren Lipid Microsphere 1.3 ML in 0.9 % Sodium Chloride 8.7 ML IVP ONE (20:41)
[2018-12-24] MEDS ORDERED: Insulin LISPRO 300 UNITS/3 ML VIAL SQ SCH (21:45)
[2018-12-24] MEDS: Insulin DETEMIR 100 UNIT/ML X5UNITS SQ SCH (22:18)
[2018-12-24 22:33] LABS: ABG Base Excess -9 mEq/L (-2 to 3); ABG HCO3 19 mEq/L (21-27); ABG Oxygen Saturation 88 % (95-98); ABG PCO2 45 mmHg (35-45); ABG PH 7.23 pH Units (7.32-7.45); ABG PO2 65 mmHg (85-104); ABG TCO2 20 mEq/L (20-26); Blood Gas PEEP 8 cm H2O
[2018-12-25] MEDS: Piperacillin/Tazobactam 3.375 GM in 0.9 % Sodium Chloride Mini Bag 100 ML IVPB SCH ×3 (00:17→21:33)
--- NOTE | 2018-12-25 01:52 | Event Note ---
Date of Encounter: 12/24/18 Time of Encounter: 22:11 Alerted by patient's nurse ASIF Bay and charge nurse ASIF Major that patient had suffered a syncopal episode. Went to see patient immediately. Patient's nurse stated that the patient had become syncopal following using the restroom. Patient did not fall to the floor but was assisted by patient's nurse. Patient was placed back on BiPAP. Patient responsive to questions. Denied any pain or injury. Stat ABG ordered which showed CO2 of 45. Pt. to remain on BiPAP d/t SOB/dyspnea. Nurse instructed to get stat EKG and continue monitoring patient closely and notify me immediately of any adverse changes.
[2018-12-25 02:55] LABS: Basophils % 0.2 %; Hematocrit 45.6 % (35.3-44.9); Hemoglobin 14.1 g/dL (11.5-15.4); Immature Granulocytes % 1.4 % (0-4); Lymphocytes # 0.5 K/mcL (0.6-4.6); Lymphocytes % 3.7 %; Mean Corpuscular HGB Conc 30.9 g/dL (31.6-35.5); Mean Corpuscular Hemoglobin 29.4 pg (28.0-33.3); Mean Corpuscular Volume 95.2 fL (83.0-100.0); Mean Platelet Volume 11.9 fL (9.4-12.4); Monocytes # 1.1 K/mcL (0.0-1.3); Monocytes % 8.3 %; Neutrophils # 11.5 K/mcL (1.6-8.9); Nucleated Red Blood Cells 1.7 /100 WBC (0); Platelet Count 130 K/mcL (140-400); Red Blood Count 4.79 M/mcL (3.82-4.97); Red Cell Distribution Width 14.5 % (11.5-14.5); Segmented Neutrophils % 86.4 %
[2018-12-25 03:15] LABS: Albumin 3.1 g/dL (3.5-5.7); Albumin/Globulin Ratio 1.6 (1.1-2.2); Bilirubin,Total 0.6 mg/dL (0.3-1.0); Calcium 8.2 mg/dL (8.6-10.3); Potassium 4.7 mEq/L (3.5-5.1); Total Protein 5.1 g/dL (6.4-8.9)
[2018-12-25] MEDS: Budesonide/Formoterol 80/4.5 MDI IH SCH ×2 (08:07→22:31)
--- NOTE | 2018-12-25 09:10 | Cardiology Progress Note ---
<Elias Gaona - Last Filed: 12/25/18 13:01> Date of Encounter: 12/25/18 Time of Encounter: 09:10 Assessment and Plan (1) NSTEMI (non-ST elevated myocardial infarction) Current Visit: Yes Status: Acute 63-year-old diabetic female presents with elevated troponin levels 0.13 --> 1.28--> 3.81 in the setting of acute kidney injury. EKG revealed sinus rhythm with intraventricular conduction delay. She remains on a heparin drip. Continue medical management. Awaiting repeat echo results, may require LHC when patient is better able to lay flat. (2) (HFpEF) heart failure with preserved ejection fraction Current Visit: Yes Status: Acute Patient with dyspnea on exertion and BNP level was elevated at 1332. Echo 09/26/18 revealed LVEF 50-55%, normal LV chamber size and systolic function, mild concentric left ventricular hypertrophy, mild left ventricular diastolic dysfunction, mildly dilated right ventricle with mild hypokinesis, mildly dilated right atrium, mild mitral regurgitation, moderate tricuspid regurgitation, and severe pulmonary hypertension. CXR and CT chest revealed right-sided pleural effusion. May require thoracentesis. She is on BiPAP therapy. Unable to diurese secondary to acute kidney injury. Qualifiers: Heart failure chronicity: acute on chronic Qualified Code(s): I50.33 - Acute on chronic diastolic (congestive) heart failure (3) MARIE (acute kidney injury) Current Visit: Yes Status: Acute Management per primary team. (4) Acute and chronic respiratory failure with hypoxia Current Visit: Yes Status: Acute Management per primary team (5) Essential hypertension Current Visit: Yes Status: Chronic BP controlled. Resume low dose beta amelie therapy at this time. (6) Squamous cell carcinoma of lung Current Visit: Yes Status: Chronic Management per primary team. Qualifiers: Laterality: right Qualified Code(s): C34.91 - Malignant neoplasm of unspeci fied part of right bronchus or lung (7) T2DM (type 2 diabetes mellitus) Current Visit: Yes Status: Chronic Management per primary team. Qualifiers: Diabetes mellitus systems test analyst insulin use: without systems test analyst use Diabetes mellitus complication status: without complication Qualified Code(s): E11.9 - Type 2 diabetes mellitus without complications Discussion w patient/family: The assessment and plan as outlined above was discussed with the patient and/or family members who expressed understanding and agreement. All questions were answered. Thank you for involving us in the care of your patient. Please call with any questions. Subjective Principal diagnosis: SOB Interval history: Patient seen and examined resting comfortably in bed on 15L supplemental O2. She has difficulty laying flat. Patient remains on Heparin drip and may require a thoracentesis. Objective Vital Signs, Last 4 Hours Temp Pulse Resp BP Pulse Ox 12/25/18 08:09 27 93 12/25/18 06:39 98.0 F 79 24 122/87 93 General: Conversant, No Apparent Distress HEENT: Atraumatic, Normocephaly Neck: No JVD Cardiac: Reg Rate and Rhythm, Normal S1 and S2 Lungs: Other (mild respiatory distress, wheezing, crackels) Neuro: Alert and responsive, No focal deficits noted Abdomen: Soft, Non-Tender Skin: No rashes noted on visualized skin Musculoskeletal: No Chest Wall Tenderness Extremities: No Clubbing, No Cyanosis, No Edema, Normal Pulses Results 12/25/18 02:35 12/25/18 02:35 Lab Results 12/24/18 12/24/18 12/25/18 11:20 11:20 02:35 WBC 7.6 13.3 H D Hgb 14.3 D 14.1 Hct 46.6 H 45.6 H Plt Count 101 L 130 L INR 1.7 Sodium Potassium Chloride Carbon Dioxide BUN Creatinine Glucose Calcium Total Bilirubin AST ALT Alkaline Phosphatase 12/25/18 02:35 WBC Hgb Hct Plt Count INR Sodium 140 Potassium 4.7 Chloride 105 Carbon Dioxide 23 BUN 45 H Creatinine 2.37 H Glucose 232 H Calcium 8.2 L Total Bilirubin 0.6 AST 333 H ALT 368 H Alkaline Phosphatase 86 - Imaging and Cardiology Echo: report reviewed Consult Discharge Plan - Plan Referrals: Michel Giron MD [Primary Care Provider] - <Cony Rascon - Last Filed: 12/25/18 16:55> Date of Encounter: 12/25/18 Assessment and Plan Discussion w patient/family: I examined this patient and my medical decision-making was reviewed with the Resident Physician. I agree with the documented findings, disposition and treatment plan. Reviewed Cardiology Consultation note. 63F with multiple medical comorbidities. Findings of elevated troponin concerning for NSTEMI. Initial recommendations considered diagnostic LHC. This was discussed with patient/family. However, patient unable to lay flat and now has worsening renal function and concern for renal infarction on CT scan. At this time, recommend conservative medical therapy. Will review Echo images when available. Objective Vital Signs, Last 4 Hours Temp Pulse Resp BP Pulse Ox 12/25/18 16:13 95 12/25/18 15:32 98.0 F 87 26 94/67 95 12/25/18 15:23 27 92 12/25/18 14:00 29 108/70 95 Results 12/25/18 14:15 12/25/18 14:15 Lab Results 12/25/18 12/25/18 12/25/18 02:35 02:35 14:15 WBC 13.3 H D 14.4 H Hgb 14.1 13.9 Hct 45.6 H 44.4 Plt Count 130 L 146 Sodium 140 Potassium 4.7 Chloride 105 Carbon Dioxide 23 BUN 45 H Creatinine 2.37 H Glucose 232 H Calcium 8.2 L Total Bilirubin 0.6 AST 333 H ALT 368 H Alkaline Phosphatase 86 Troponin I 12/25/18 12/25/18 14:15 14:15 WBC Hgb Hct Plt Count Sodium 140 Potassium 4.7 Chloride 105 Carbon Dioxide 24 BUN 49 H Creatinine 2.66 H Glucose 242 H Calcium 8.3 L Total Bilirubin AST ALT Alkaline Phosphatase Troponin I 2.85 H*
--- NOTE | 2018-12-25 10:14 | Electrocardiograph Report ---
[place] [id number] Test Date: 2018-12-24 Pat Name: Michelle Kumar Department: 111 Room: 2NE26 Gender: F Booking Clerk: : 1955 Requested By: Arsen Rodriguez Order Number: [id number] Reading MD: Andre Schultz Measurements Intervals [place] Rate: 92 P: 53 CT: 154 QRS: 126 QRSD: 94 T: -25 QT: 414 QTc: 464 Interpretive Statements SINUS RHYTHM WITH FREQUENT VENTRICULAR PREMATURE COMPLEXES ANTEROSEPTAL MYOCARDIAL INFARCTION, PROBABLY OLD Electronically Signed On 12-25-2018 10:13:02 EDT by Andre Schultz
--- NOTE | 2018-12-25 11:14 | Internal Med Progress Note ---
Hospitalist Progress Note - Encounter Date of Encounter: 12/25/18 Time of Encounter: 11:09 - Subjective Interval History: I have seen and evaluated the patient at bedside. Patient remains hypoxemic on 5 L of oxygen, transition to BiPAP. She denies chest pain. Reports shortness of breath, denies lightheadedness. - Exam Vitals: Temp Pulse Resp BP Pulse Ox 98.0 F 79 27 122/87 93 12/25/18 06:39 12/25/18 06:39 12/25/18 08:09 12/25/18 06:39 12/25/18 08:09 Exam: Vitals: Reviewed General: Obese, Alert and oriented x3. In mild distress due to respiratory distress Skin: Normal color, no rash, no lesions. HEENT: EOM, pupils equal, round and reactive. Cardiovascular: RRR, normal S1 & S2, no rubs, murmurs or gallops. Lungs: scattered b/l wheezes, rales on the left lower lobe, crackles. Abdomen: Obes, soft, non-tender, no rigidity. Extremities: No deformity, no edema or tenderness, no joint swelling or clubbing. Neurological: Normal cognition and motor skills. Rest of the physical exam is non contributory - Assessment and Plan (1) Acute and chronic respiratory failure with hypoxia Current Visit: Yes Status: Acute Assessment and Plan: patient remains to be hypoxic. On Bipap clear liquid diet pulmonology has been consulted started on methyl-prednisolone 40mg/IV BID on symbicort On bronchodilators scheduled urine for atypical ordered will repeat chest x-ray abg continue empiric antibiotics with piperacillin/tazobactam 3.375mg/IV Q8HRs (2) Essential hypertension Current Visit: Yes Status: Chronic Assessment and Plan: BP controlled. Furosemide and lisinopril have been discontinue due to worsening kidney function. continue metoprolol 12.5mg/PO daily. will monitor BP and adjust medications accordingly. (3) Squamous cell carcinoma of lung Current Visit: Yes Status: Chronic Assessment and Plan: plan of care as per Hem&Onc team. recommendations appreciated (4) MARIE (acute kidney injury) Current Visit: Yes Status: Acute Assessment and Plan: worsening kidney function. possible due to IV diuretics. Nephrology has been consulted, recommendations appreciated U/A and urine lytes ordered CPK and uric acid (5) T2DM (type 2 diabetes mellitus) Current Visit: Yes Status: Chronic Assessment and Plan: Blood sugars optimally controlled increase Levemir to 10 units twice a day. Will add lispro 3 units ac, continue lispro low dose sliding scale (6) NSTEMI (non-ST elevated myocardial infarction) Current Visit: Yes Status: Acute Assessment and Plan: patient denies chest pain. on a heparin drip. on a bb lisinopril discontinued due to worsening kidney function. cardiology recommendations appreciated continue aspirin and statin (7) (HFpEF) heart failure with preserved ejection fraction Current Visit: Yes Status: Acute Assessment and Plan: signs of volume overload on chest x-ray. continue fluid restrictive strategies to 1.5 litters a day, plus daily weight. strict intake and output. furosemide discontinued due to worsening kidney function nephrology consulted for assistance in diuresis. recommendations appreciated DVT Prophylaxis: patient on a heparin drip. - Summary of Assessment and Plan Summary of Assessment and Plan: patient to remain in the hospital due to NSTEMI, acute hypoxemic respiratory failure and worsening kidney function. - Time Spent with Patient Total time spent is greater than 50% in coordination of care (as documented) at patient's floor/unit and/or counseling patient: Greater than 35 minutes (45) Plan of Care Discussed with: patient (her family at bedside and the nurse) Internal Medicine: Result - Labs CBC & Chem 7: 12/25/18 14:15 12/25/18 14:15 Labs: Short CBC 12/24/18 12/25/18 Range/Units 11:20 02:35 WBC 7.6 13.3 H D (4.3-11.1) K/mcL Hgb 14.3 D 14.1 (11.5-15.4) g/dL Hct 46.6 H 45.6 H (35.3-44.9) % Plt Count 101 L 130 L (140-400) K/mcL Neutrophils # 11.5 H (1.6-8.9) K/mcL BMP 12/25/18 02:35 Sodium 140 Potassium 4.7 Chloride 105 Carbon Dioxide 23 BUN 45 H Creatinine 2.37 H Glucose 232 H Calcium 8.2 L Liver Function 12/25/18 Range/Units 02:35 Total Bilirubin 0.6 (0.3-1.0) mg/dL AST 333 H (13-39) Units/L ALT 368 H (7-52) Units/L Alkaline Phosphatase 86 (34-104) Units/L Albumin 3.1 L (3.5-5.7) g/dL - ABG Interpretation ABG results: ABG ABG pH 7.23 pH Units (7.32-7.45) L 12/24/18 22:29 ABG pCO2 45 mmHg (35-45) 12/24/18 22:29 ABG pO2 65 mmHg (85-104) L 12/24/18 22:29 ABG O2 Saturation 88 % (95-98) L 12/24/18 22:29 PT/INR, D-dimer PT 18.8 Seconds (9.4-12.1) H 12/24/18 11:20 Consult Discharge Plan - Plan Referrals: Michel Giron MD [Primary Care Provider] - (3) Squamous cell carcinoma of lung Qualifiers: Laterality: right Qualified Code(s): C34.91 - Malignant neoplasm of unspecified part of right bronchus or lung (5) T2DM (type 2 diabetes mellitus) Qualifiers: Diabetes mellitus termite exterminator helper insulin use: without fdc use Diabetes mellitus complication status: without complication Qualified Code(s): E11.9 - Type 2 diabetes mellitus without complications (7) (HFpEF) heart failure with preserved ejection fraction Qualifiers: Heart failure chronicity: acute on chronic Qualified Code(s): I50.33 - Acute on chronic diastolic (congestive) heart failure
[2018-12-25] MEDS: Insulin LISPRO 300 UNITS/3 ML VIAL SQ SCH ×5 (12:23→18:50)
[2018-12-25] MEDS: Potassium Chloride Elixir 20 MEQ/15 ML UDC PO SCH (12:48)
[2018-12-25] MEDS: Aspirin 325 MG TABLET PO SCH (12:48)
--- NOTE | 2018-12-25 13:01 | Pulmonology Consult Note ---
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 We will attempt right-sided thoracentesis when we can hold heparin that is tomorrow. (2) (HFpEF) heart failure with preserved ejection fraction Current Visit: Yes Status: Acute Patient presented with acute on chronic diastolic heart failure responded well to diuresis now with acute kidney injury Qualifiers: Heart failure chronicity: acute on chronic Qualified Code(s): I50.33 - Acu te on chronic diastolic (congestive) heart failure (3) Pleural effusion Current Visit: Yes Status: Acute Patient is bilateral pleural effusion secondary to cirrhosis and congestive heart failure still malignancy is a possibility we will plan for thoracentesis tomorrow. (4) Squamous cell carcinoma of lung Current Visit: Yes Status: Chronic Patient is getting her chemoradiation. Qualifiers: Laterality: right Qualified Code(s): C34.91 - Malignant neoplasm of unspecified part of right bronchus or lung (5) Pneumonia Current Visit: Yes Status: Acute Patient has this mucus plugging of the right lower lobe to continue broad-spectr um antibiotics de-escalate antibiotics according to the response. Pulmonary will continue to follow for possible thoracentesis tomorrow. Qualifiers: Pneumonia type: due to unspecified organism Laterality: right Lung location: lower lobe of lung Qualified Code(s): J18.1 - Lobar pneumonia, unspecified organism History of Present Illness Consult date: 12/25/18 Requesting physician: Yo Fajardo Reason for consult: pleural effusion, lung mass (acute on chronic respiratory failure ) Chief complaint: Not feeling well History of present illness: 63-year-old female with stage III squamous cell carcinoma with stage III glottic laryngeal cancer getting a chemoradiation after the treatment patient was found to be hypoxic hypotensive initial workup in the ER with CTA shows enlarging right apical lung mass with lymphangitic spread pulmonary was consult and for this worsening hypoxic respiratory failure patient is complaining of ch est discomfort on the left side patient denies any central chest pain like angina denies any chest pressure denies any palpitation or syncope not much cough or sputum production no fever or chills . Pulmonary was consulted for evaluation of this hypoxic respiratory failure Past Med Surg Social Fam HX - Past Medical History Medical history: cancer, diabetes, hypertension, other Additional medical history: Lung/Throat CA Psychiatric history: no psych history - Past Surgical History Surgical History: appendectomy, cataract Additional surgical history: cardiac cath, tubal ligation - Social History Smoking Status: 2nd Hand Smoke Exposure Smokeless Tobacco Status: No Alcohol use: none Drug use: none - Family History Mother Adopted: [place]: Adriana Living Status: Age at : 57 Hx Family Cardiac Disorders: Yes Hx Family Respiratory Disorders: No Hx Family Cancer: Yes Hx Family GI Disorders: No Hx Family Genitourinary Disorders: No Hx Family Endocrine Disorder: Yes Hx Family Musculoskeletal Disorders: No Hx Family Neuromuscular Disorders: No Hx Family Neurologic Disorders: No Hx Family Autoimmune Disorders: No Medications and Allergies Albuterol Sulfate [Ventolin Hfa] 2 puff IH Q4H PRN 10/02/17 [History] Aspirin 325 mg PO DAILY 10/02/17 [History] Furosemide [Lasix] 20 mg PO TID 10/02/17 [History] Ipratropium/Albuterol Neb [Duoneb] 3 ml IH Q6H PRN 10/02/17 [History] Oxygen 3 l NS AD 10/02/17 [History] Potassium Chloride [Klor-Con 10] 5 meq PO DAILY 10/02/17 [History] Fluticasone/Salmeterol [Advair 250-50 Diskus] 1 puff IH BID 08/08/18 [History] Rivaroxaban [Xarelto] 20 mg PO DAILY #60 tablet 08/12/18 [Rx] Levalbuterol HCl [Xopenex] 1.25 mg IH Q6H 09/25/18 [History] Metoprolol Succinate [Toprol Xl] 25 mg PO DAILY 09/25/18 [History] Insulin Glargine,Hum.rec.anlog [Basaglar Kwikpen U-100] 5 unit SQ HS 11/11/18 [History] Promethazine [Phenergan] 25 mg PO Q6HR PRN #30 tablet 12/23/18 [Rx] Atorvastatin [Lipitor] 40 mg PO HS 12/25/18 [History] glipiZIDE [Glipizide ER] 10 mg PO DAILY 12/25/18 [History] Allergy/AdvReac Type Severity Reaction Status Date / Time Penicillins [PCN] Allergy Mild Hives Verified 12/04/18 13:41 All Systems: The remainder of the systems were reviewed and are negative Physical Examination Vital Signs: Vital Signs, Last 4 Hours Temp Pulse Resp BP Pulse Ox 12/25/18 12:00 98.0 F 87 18 108/70 97 General appearance: lethargic Inspection: other (swelling in the left chest ) Auscultation: bilateral: diminished breath sounds (Basilar diminished breath sounds), rales (Minimal scattered) Cardiovascular: regular rate and rhythm Results - Laboratory Findings CBC and BMP: 12/25/18 14:15 12/25/18 14:15 ABG ABG pH 7.23 pH Units (7.32-7.45) L 12/24/18 22:29 ABG pCO2 45 mmHg (35-45) 12/24/18 22:29 ABG pO2 65 mmHg (85-104) L 12/24/18 22:29 ABG O2 Saturation 88 % (95-98) L 12/24/18 22:29 PT/INR, D-dimer PT 18.8 Seconds (9.4-12.1) H 12/24/18 11:20 Abnormal lab findings: Abnormal lab results WBC 13.3 K/mcL (4.3-11.1) H D 12/25/18 02:35 Hct 45.6 % (35.3-44.9) H 12/25/18 02:35 MCHC 30.9 g/dL (31.6-35.5) L 12/25/18 02:35 Plt Count 130 K/mcL (140-400) L 12/25/18 02:35 Neutrophils # 11.5 K/mcL (1.6-8.9) H 12/25/18 02:35 Lymphocytes # 0.5 K/mcL (0.6-4.6) L 12/25/18 02:35 Nucleated RBCs/100 WBC 1.7 /100 WBC (0) H 12/25/18 02:35 PT 18.8 Seconds (9.4-12.1) H 12/24/18 11:20 APTT 38.6 Seconds (26.0-36.0) H 12/23/18 15:36 ABG pH 7.23 pH Units (7.32-7.45) L 12/24/18 22:29 ABG pO2 65 mmHg (85-104) L 12/24/18 22:29 ABG HCO3 19 mEq/L (21-27) L 12/24/18 22:29 ABG O2 Saturation 88 % (95-98) L 12/24/18 22:29 ABG Base Excess -9 mEq/L (-2 to 3) L 12/24/18 22:29 BUN 45 mg/dL (8-23) H 12/25/18 02:35 Creatinine 2.37 mg/dL (0.60-1.20) H 12/25/18 02:35 Est GFR ( Amer) 25 (> 60) L 12/25/18 02:35 Est GFR (Non-Af Amer) 21 (> 60) L 12/25/18 02:35 Glucose 232 mg/dL (70-105) H 12/25/18 02:35 POC Glucose 252 mg/dL (70-99) H 12/24/18 20:16 Calculated Osmolality 309 (280-300) H 12/25/18 02:35 Calcium 8.2 mg/dL (8.6-10.3) L 12/25/18 02:35 AST 333 Units/L (13-39) H 12/25/18 02:35 ALT 368 Units/L (7-52) H 12/25/18 02:35 Troponin I 3.81 ng/mL (< 0.04) H* 12/24/18 05:23 B-Natriuretic Peptide 1332 pg/mL (Less than 100) H 12/23/18 15:36 Serum Total Protein 5.1 g/dL (6.4-8.9) L 12/25/18 02:35 Albumin 3.1 g/dL (3.5-5.7) L 12/25/18 02:35 Globulin 2.0 g/dL (2.4-3.5) L 12/25/18 02:35 - Microbiology Findings Microbiology Findings: Microbiology, Last 48 Hours 12/24/18 17:50 Sputum Culture - Final Sputum 12/23/18 19:16 Blood Culture - Preliminary Peripheral Venipuncture Culture is incubating and being continuously monitored for growth. Final report to follow. 12/23/18 19:16 Blood Culture - Preliminary Peripheral Venipuncture Culture is incubating and being continuously monitored for growth. Final report to follow. - Clinical Findings Intake & Output: Intake & Output 12/24/18 12/25/18 12/25/18 23:59 07:59 15:59 Intake Total 1822 / 182 858 / 858 0 / 0 Output Total 0 / 0 0 / 0 200 / 200 Balance 182 / 1822 858 / 858 -200 / -200 Weight 88.5 kg Consult Discharge Plan - Plan Referrals: Michel Giron MD [Primary Care Provider] -
[2018-12-25] MEDS ORDERED: Isovue-370 500 ML BOTTLE IVP ONE (13:24)
[2018-12-25 14:46] LABS: Basophils % 0.1 %; Hematocrit 44.4 % (35.3-44.9); Hemoglobin 13.9 g/dL (11.5-15.4); Immature Granulocytes % 0.9 % (0-4); Lymphocytes # 0.8 K/mcL (0.6-4.6); Lymphocytes % 5.8 %; Mean Corpuscular HGB Conc 31.3 g/dL (31.6-35.5); Mean Corpuscular Hemoglobin 29.9 pg (28.0-33.3); Mean Corpuscular Volume 95.5 fL (83.0-100.0); Mean Platelet Volume 12.3 fL (9.4-12.4); Monocytes # 0.8 K/mcL (0.0-1.3); Monocytes % 5.5 %; Neutrophils # 12.6 K/mcL (1.6-8.9); Nucleated Red Blood Cells 2.4 /100 WBC (0); Platelet Count 146 K/mcL (140-400); Red Blood Count 4.65 M/mcL (3.82-4.97); Red Cell Distribution Width 14.6 % (11.5-14.5); Segmented Neutrophils % 87.7 %
[2018-12-25 14:57] LABS: Calcium 8.3 mg/dL (8.6-10.3); Potassium 4.7 mEq/L (3.5-5.1)
[2018-12-25 15:11] LABS: ABG Base Excess -4 mEq/L (-2 to 3); ABG HCO3 23 mEq/L (21-27); ABG Oxygen Saturation 95 % (95-98); ABG PCO2 45 mmHg (35-45); ABG PH 7.31 pH Units (7.32-7.45); ABG PO2 82 mmHg (85-104); ABG TCO2 24 mEq/L (20-26); Blood Gas PEEP 8 cm H2O
--- NOTE | 2018-12-25 15:49 | Event Note ---
Date of Encounter: 12/25/18 Time of Encounter: 15:48 - Nephrology Event Note Nephrology Chart Update I found this 63 y/o patient on my list this afternoon. She was not in the room, though I met her sister and granddaughter. I reviewed her chart and will place orders to start the MARIE on CKD work up. Full consult to follow. Thank you.
--- NOTE | 2018-12-25 16:03 | Oncology Inp Progress Note ---
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 Status post concurrent chemoradiotherapy to the lung/glottic larynx with weekly cisplatin/paclitaxel x6 doses completed 09/03/2018. Chemotherapy course was abbreviated secondary to patient noncompliance. She was noted to have persistent disease involving the primary as well as mediastinal lymph nodes by PET/CT 11/26/2018 and recommended to start palliative intent dose attenuated carboplatin, abraxane and pembrolizumab initiated 12/12. Recommended to present to ER following treatment for hypoxia and hypotension. CTA which noted interval increase in size of the right apical mass compared to 09/26/2018, septal thickening in the right lung which could represent lymphangitic metastasis or a component of asymmetric pulmonary edema, New right- sided pleural effusion, scattered bilateral airspace disease likely represents superimposed pneumonia, negative for PE. Plan: Currently on bipap, she is hypoxic on 15L, discussed potential consideration of therapeutic thoracentesis-appears small and may not be amendable to drainage- patients daughter at bedside declining thoracentesis Hypoxia secondary to malignancy vs. infection/PNA vs. pleural effusion Pneumonia workup and treatment per hospitalist-currently on zosyn We will continue to monitor her course of recovery, per prior conversations with patient/provider team she has asked to remain full code (2) Squamous cell carcinoma of lung Current Visit: Yes Status: Chronic Assessment and plan: See plan above Qualifiers: Laterality: right Qualified Code(s): C34.91 - Malignant neoplasm of unspecified part of right bronchus or lung (3) Acute and chronic respiratory failure with hypoxia Current Visit: Yes Status: Acute (4) Elevated troponin Current Visit: Yes Status: Acute Assessment and plan: Cardiology consulted for concern for NSTEMI Currently denies chest pain Recommend echo and medical management, currently on heparin gtt BNP level elevated at 1332. Echo 09/26/18 revealed LVEF 50-55%, CT chest revealed right-sided pleural effusion--- 2/2 fluid overload vs. infection vs. malignancy Unable to diurese secondary to acute kidney injury. Oncology: Obj Data - Labs CBC & Chem 7: 12/25/18 14:15 12/25/18 14:15 Consult Discharge Plan - Plan Referrals: Michel Giron MD [Primary Care Provider] -
[2018-12-25 16:45] LABS: Complement C3 57 mg/dL (87-200)
[2018-12-25 17:04] LABS: Hepatitis B Surface Antibody < 3.10 mIU/mL
[2018-12-25 17:15] LABS: Hepatitis B Surface Antigen Nonreactive (Nonreactive)
[2018-12-25] MEDS ORDERED: Albumin 25% 25gram/100mL 25 GM/100 ML IV.SOLN IVPB ONE (17:41)
[2018-12-25] MEDS: MethylPREDNISolone 40 MG/ML VIAL IVP SCH (18:51)
[2018-12-25] MEDS: Insulin DETEMIR 100 UNIT/ML X5UNITS SQ SCH (21:24)
[2018-12-26] MEDS: Heparin 25,000 UNIT/250 ML D5W 25,000 UNIT/250 ML IV.SOLN IVC SCH ×3 (01:18→20:09)
[2018-12-26 03:30] LABS: Albumin 3.6 g/dL (3.5-5.7); Calcium 8.5 mg/dL (8.6-10.3); Magnesium 2.2 mg/dL (1.6-2.6); Phosphorous 6.5 mg/dL (2.7-4.5); Potassium 4.8 mEq/L (3.5-5.1)
[2018-12-26 03:32] LABS: Uric Acid 12.3 mg/dL (2.3-7.6)
[2018-12-26] MEDS: Piperacillin/Tazobactam 3.375 GM in 0.9 % Sodium Chloride Mini Bag 100 ML IVPB SCH ×2 (04:38→12:27)
[2018-12-26] MEDS: MethylPREDNISolone 40 MG/ML VIAL IVP SCH ×2 (05:58→17:48)
--- NOTE | 2018-12-26 06:56 | Pulmonology Progress Note ---
Date of Encounter: 12/26/18 Time of Encounter: 06:56 Assessment and Plan (1) Acute and chronic respiratory failure with hypoxia Current Visit: Yes Status: Acute This is a 63-year-old woman who presented with acute on chronic hypoxic respiratory failure secondary acute on chronic HFpEF, AECOPD PNA complicated by lung cancer. Unfortunately has acute kidney injury as well complicating her ability to perform diuresis. Has bilateral pleural effusions but not large enough to aspirate. -Continue BiPAP at this time will BiPAP dependent would keep nothing by mouth weaned to keep FiO2 >89% -Agree with continued antibiotics -Continue IV steroids -Diuresis as tolerated -Appreciate cardiology and nephrology's recommendations -Agree with palliative care consult as prognosis at this point is guarded and I suspect that with worsening kidney function she may require dialysis Do not hesitate to call me with any questions or concerns Donato Allyson [phone] (2) MARIE (acute kidney injury) Current Visit: Yes Status: Acute (3) Non-small cell lung cancer Current Visit: No Status: Chronic Qualifiers: Laterality: unspecified laterality Qualified Code(s): C34.90 - Malignant neoplasm of unspecified part of unspecified bronchus or lung (4) (HFpEF) heart failure with preserved ejection fraction Current Visit: Yes Status: Acute Qualifiers: Heart failure chronicity: acute on chronic Qualified Code(s): I50.33 - Acute on chronic diastolic (congestive) heart failure (5) Pneumonia Current Visit: Yes Status: Acute Qualifiers: Pneumonia type: due to unspecified organism Laterality: right Lung location: lower lobe of lung Qualified Code(s): J18.1 - Lobar pneumonia, unspecified organism (6) COPD exacerbation Current Visit: Yes Status: Acute Subjective Principal diagnosis: SOB Interval history: Went for thoracentesis today benign a pocket of fluid to drain. She remains on BiPAP and has a fairly quick desaturation when this is removed she is on 70% FiO2 currently but is comfortable when on BiPAP Objective PUL Vital signs: Last Vital Signs Temp 97.6 F 12/26/18 04:37 Pulse 74 12/26/18 04:37 Resp 26 12/26/18 04:47 BP 92/76 12/26/18 04:37 Pulse Ox 93 12/26/18 04:47 General appearance: no acute distress Neck: supple, JVD Effort: mildly labored Auscultation: bilateral: wheezes Cardiovascular: regular rate and rhythm Gastrointestinal: normoactive bowel sounds, soft, non-tender Integumentary: normal Extremities: edema Musculoskeletal: no deformities normal mental status, non-focal exam mood appropriate Results - Laboratory Findings CBC and BMP: 12/25/18 14:15 12/26/18 01:30 ABG ABG pH 7.31 pH Units (7.32-7.45) L 12/25/18 15:03 ABG pCO2 45 mmHg (35-45) 12/25/18 15:03 ABG pO2 82 mmHg (85-104) L 12/25/18 15:03 ABG O2 Saturation 95 % (95-98) 12/25/18 15:03 PT/INR, D-dimer PT 18.8 Seconds (9.4-12.1) H 12/24/18 11:20 Abnormal lab findings: Abnormal lab results WBC 14.4 K/mcL (4.3-11.1) H 12/25/18 14:15 MCHC 31.3 g/dL (31.6-35.5) L 12/25/18 14:15 RDW 14.6 % (11.5-14.5) H 12/25/18 14:15 Neutrophils # 12.6 K/mcL (1.6-8.9) H 12/25/18 14:15 Nucleated RBCs/100 WBC 2.4 /100 WBC (0) H 12/25/18 14:15 PT 18.8 Seconds (9.4-12.1) H 12/24/18 11:20 APTT 38.6 Seconds (26.0-36.0) H 12/23/18 15:36 ABG pH 7.31 pH Units (7.32-7.45) L 12/25/18 15:03 ABG pO2 82 mmHg (85-104) L 12/25/18 15:03 ABG Base Excess -4 mEq/L (-2 to 3) L 12/25/18 15:03 Carbon Dioxide 22 mEq/L (23-29) L 12/26/18 01:30 BUN 52 mg/dL (8-23) H 12/26/18 01:30 Creatinine 2.78 mg/dL (0.60-1.20) H 12/26/18 01:30 Est GFR ( Amer) 21 (> 60) L 12/26/18 01:30 Est GFR (Non-Af Amer) 17 (> 60) L 12/26/18 01:30 Glucose 202 mg/dL (70-105) H 12/26/18 01:30 POC Glucose 229 mg/dL (70-99) H 12/25/18 21:20 Calculated Osmolality 308 (280-300) H 12/26/18 01:30 Uric Acid 12.3 mg/dL (2.3-7.6) H 12/26/18 01:30 Calcium 8.5 mg/dL (8.6-10.3) L 12/26/18 01:30 Phosphorus 6.5 mg/dL (2.7-4.5) H 12/26/18 01:30 AST 333 Units/L (13-39) H 12/25/18 02:35 ALT 368 Units/L (7-52) H 12/25/18 02:35 Troponin I 2.85 ng/mL (< 0.04) H* 12/25/18 14:15 B-Natriuretic Peptide 1332 pg/mL (Less than 100) H 12/23/18 15:36 Serum Total Protein 5.1 g/dL (6.4-8.9) L 12/25/18 02:35 Globulin 2.0 g/dL (2.4-3.5) L 12/25/18 02:35 25-OH Vitamin D Total 13 ng/mL (30-80) L 12/25/18 15:54 PTH Intact 285.6 pg/ml (10.0-65.0) H 12/25/18 15:54 Complement C3 57 mg/dL (87-200) L 12/25/18 15:54 Complement C4 15 mg/dL (19-52) L 12/25/18 15:54 Hep Bs Antibody < 3.10 mIU/mL (10.00-) L 12/25/18 16:09 - Microbiology Findings Microbiology Findings: Microbiology, Last 48 Hours 12/24/18 17:50 Sputum Culture - Final Sputum - Diagnostic Findings Chest x-ray: report reviewed, image reviewed - Clinical Findings Intake & Output: Intake & Output 12/25/18 12/25/18 12/26/18 15:59 23:59 07:59 Intake Total 100 / 100 Output Total 200 / 200 0 / 0 0 / 0 Balance -100 / -100 Consult Discharge Plan - Plan Referrals: Michel Giron MD [Primary Care Provider] -
[2018-12-26] MEDS: Budesonide/Formoterol 80/4.5 MDI IH SCH ×2 (07:27→19:48)
[2018-12-26 07:45] LABS: Globulin 1.8 g/dL (2.4-3.5); Total Protein 5.4 g/dL (6.4-8.9)
[2018-12-26] MEDS: Potassium Chloride Elixir 20 MEQ/15 ML UDC PO SCH (08:20)
[2018-12-26] MEDS: Aspirin 81 MG TAB.CHEW PO SCH (08:21)
[2018-12-26] MEDS: Insulin DETEMIR 100 UNIT/ML X5UNITS SQ SCH ×2 (08:21→23:00)
[2018-12-26] MEDS: Insulin LISPRO 300 UNITS/3 ML VIAL SQ SCH ×5 (08:22→17:48)
--- NOTE | 2018-12-26 10:00 | Cardiology Progress Note ---
<Elias Gaona - Last Filed: 12/26/18 13:28> Date of Encounter: 12/26/18 Time of Encounter: 09:58 Assessment and Plan (1) NSTEMI (non-ST elevated myocardial infarction) Current Visit: Yes Status: Acute 63-year-old diabetic female with elevated troponin levels 0.13 --> 1.28--> 3.81 in the setting of acute kidney injury and acute respiratory failure. EKG revealed sinus rhythm with intraventricular conduction delay. Continue medical management. Do not recommend C at this time due to worsening renal function and inability to lay flat. (2) (HFpEF) heart failure with preserved ejection fraction Current Visit: Yes Status: Acute Patient with dyspnea on exertion and BNP level was elevated at 1332. Echo revealed estimated LVEF 40-45% difficult to assess secondary to concentric ventricular hypertrophy, moderately dilated right ventricle with diffuse septal hypokinesis, and severe pulmonary hypertension. Findings are likely related to volume overload. CXR and CT chest revealed right-sided pleural effusion. May require thoracentesis. She is on BiPAP therapy. Unable to diurese secondary to acute kidney injury. Qualifiers: Heart failure chronicity: acute on chronic Qualified Code(s): I50.33 - Acute on chronic diastolic (congestive) heart failure (3) MARIE (acute kidney injury) Current Visit: Yes Status: Acute Management per primary team. (4) Acute and chronic respiratory failure with hypoxia Current Visit: Yes Status: Acute Management per primary team (5) Essential hypertension Current Visit: Yes Status: Chronic BP controlled. Continue low dose beta amelie therapy. (6) Squamous cell carcinoma of lung Current Visit: Yes Status: Chronic Management per primary team. Qualifiers: Laterality: right Qualified Code(s): C34.91 - Malignant neoplasm of unspecified part of right bronchus or lung (7) T2DM (type 2 diabetes mellitus) Current Visit: Yes Status: Chronic Management per primary team. Qualifiers: Diabetes mellitus compact assembler insulin use: without senior living use Diabetes mellitus complication status: without complication Qualified Code(s): E11.9 - Type 2 diabetes mellitus without complications Discussion w patient/family: The assessment and plan as outlined above was discussed with the patient and/or family members who expressed understanding and agreement. All questions were answered. Thank you for involving us in the care of your patient. Please call with any questions. Subjective Principal diagnosis: SOB Interval history: Patient seen and examined resting comfortably in bed wearing BiPAP. She con tinues to have difficulty laying flat. Patient's MARIE continues to worsen and she may require a thoracentesis. Objective Vital Signs, Last 4 Hours Temp Pulse Resp BP Pulse Ox 12/26/18 08:13 97.6 F 73 20 118/76 93 12/26/18 07:27 18 93 General: Conversant (Mild distress wearing BiPAP) HEENT: Atraumatic, Normocephaly, Other (Mucous membranes dry) Cardiac: Reg Rate and Rhythm, Normal S1 and S2 Lungs: Other (Mild respiratory distress, diffuse wheezes, crackles) Neuro: Alert and responsive, No focal deficits noted Abdomen: Soft, Non-Tender Skin: No rashes noted on visualized skin Musculoskeletal: No Chest Wall Tenderness Extremities: No Clubbing, No Cyanosis, Other (+1 pedal edema) Results 12/25/18 14:15 12/26/18 01:30 Lab Results 12/25/18 12/25/18 12/25/18 14:15 14:15 14:15 WBC 14.4 H Hgb 13.9 Hct 44.4 Plt Count 146 Sodium 140 Potassium 4.7 Chloride 105 Carbon Dioxide 24 BUN 49 H Creatinine 2.66 H Glucose 242 H Calcium 8.3 L Magnesium Troponin I 2.85 H* 12/26/18 01:30 WBC Hgb Hct Plt Count Sodium 139 Potassium 4.8 Chloride 105 Carbon Dioxide 22 L BUN 52 H Creatinine 2.78 H Glucose 202 H Calcium 8.5 L Magnesium 2.2 Troponin I - Imaging and Cardiology Echo: report reviewed, image reviewed Consult Discharge Plan - Plan Referrals: Michel Giron MD [Primary Care Provider] - <Cony Rascon - Last Filed: 12/26/18 14:00> Date of Encounter: 12/26/18 Assessment and Plan Discussion w patient/family: I examined this patient and my medical decision-making was reviewed with the Resident Physician. I agree with the documented findings, disposition and treatment plan as described. Ms. Kumar's overall clinical picture is worsening with multiple medical comorbidities. From a cardiac standpoint, we recommend against LHC at this time since she is not stable from a pulmonary standpoint and is unable to lay flat - may consider thoracentesis. She is being treated for PNA. Additionally, renal function is worsening and there is concern on CT that she's had a renal infarction - recommend Nephrology consultation. Of note, I personally reviewed Echo images - LV systolic function not optimally visualized but grossly appears mildly reduced, RV is moderate to severely dilated with moderate reduction in function and septal flattening suggesting RV volume/pressure overload. When compared to Echo done in September 2018, RV size was enlarged and septal flattening also noted. CTA done this admission ruled out large PE. Consider V/Q scan if appropriate given her history of PE in July 2018. Currently on aspirin therapy for CAD (heparin was stopped yesterday by Pulmonary). If xarelto is not being restarted, can consider addition of plavix for NSTEMI. If clinical status improves, can consider LHC. For now, we will sign off. Continue asa, statin. On low dose BB. Objective Vital Signs, Last 4 Hours Temp Pulse Resp BP Pulse Ox 12/26/18 11:26 97.5 F L 69 20 117/69 92 Results 12/25/18 14:15 12/26/18 01:30 Lab Results 12/25/18 12/25/18 12/25/18 14:15 14:15 14:15 WBC 14.4 H Hgb 13.9 Hct 44.4 Plt Count 146 Sodium 140 Potassium 4.7 Chloride 105 Carbon Dioxide 24 BUN 49 H Creatinine 2.66 H Glucose 242 H Calcium 8.3 L Magnesium Troponin I 2.85 H* 12/26/18 01:30 WBC Hgb Hct Plt Count Sodium 139 Potassium 4.8 Chloride 105 Carbon Dioxide 22 L BUN 52 H Creatinine 2.78 H Glucose 202 H Calcium 8.5 L Magnesium 2.2 Troponin I
--- NOTE | 2018-12-26 16:10 | Event Note ---
Date of Encounter: 12/26/18 Time of Encounter: 16:07 Palliative care consult received. Went to see the patient, she is being transported to [facility]. Family present: daughters Morena, Sharla, son-in-law Erik and grand-daughter Brea and grand-son Ravinder. Son Ramesh was absent, pt designated him as the POA. Family would like to have conversation once Ramesh is present. Family meeting scheduled for tomorrow 12/27 at 10am. Full note to follow.
--- NOTE | 2018-12-26 16:48 | Internal Med Progress Note ---
Hospitalist Progress Note - Encounter Date of Encounter: 12/26/18 Time of Encounter: 08:00 - Subjective Interval History: patient was seen and examined at bedside. Currently on BiPAP. Follows all commands. Denies chest pain or palpitations. Has no complaints or questions. Continues to have difficulty laying flat. - Exam Vitals: Temp Pulse Resp BP Pulse Ox 97.5 F L 69 20 117/69 92 12/26/18 11:26 12/26/18 11:26 12/26/18 11:26 12/26/18 11:12/26/18 11:26 Exam: Vitals: Reviewed General: Obese, Alert and oriented x3. In mild distress due to respiratory di stress on BiPAP Skin: Normal color, no rash, no lesions. HEENT: EOM, pupils equal, round and reactive. Cardiovascular: RRR, normal S1 & S2, no rubs, murmurs or gallops. Lungs: scattered b/l wheezes, rales on the left lower lobe, crackles. Abdomen: Obes, soft, non-tender, no rigidity. Extremities: No deformity, no edema or tenderness, no joint swelling or clubbing. Neurological: No focal deficit - Assessment and Plan (1) Acute renal failure Current Visit: Yes Status: Acute Assessment and Plan: CT abdomen and pelvis: Heterogeneous enhancement of the kidneys, especially on t he right, concerning for renal infarction. 2. Delayed excretion of contrast from the kidneys, compatible with renal failure. nephrology was consulted discussed case with Dr. Tillman- will follow recommendations vascular surgery consulted for recommendations continue with heparin drip for now hematlogy oncology on board ( has renal infarct) UA STAT urine lytes pending (2) Acute and chronic respiratory failure with hypoxia Current Visit: Yes Status: Acute Assessment and Plan: Has bilateral pleural effusions but not large enough to aspirate- cannot diures as she has ARF. patient remains to be hypoxic. 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 Status post concurrent chemoradiotherapy to the lung/glottic larynx with weekly cisplatin/paclitaxel x6 doses completed 09/03/2018. Chemotherapy course was abbreviated secondary to patient noncompliance. palliative intent dose attenuated carboplatin, abraxane and pembrolizumab initiated 12/23/2018. oncology is on board will follow recommendations. (4) NSTEMI (non-ST elevated myocardial infarction) Current Visit: Yes Status: Acute Assessment and Plan: patient denies chest pain. elevated troponin levels 0.13 --> 1.28--> 3.81 in the setting of acute kidney injury and acute respiratory failure. EKG revealed sinus rhythm with intraventricular conduction delay. continue with BB ( holding ACEI secondary to MARIE), ASA and lipitor cardiology consulted and heparin drip was discontinued and recommended medical management as per cardiology " Do not recommend LHC at this time due to worsening renal function and inability to lay flat." (5) Elevated blood uric acid level Current Visit: Yes Status: Acute Assessment and Plan: ? secondary to ARF vs tumor lysis (discussed with hematology/oncology who feels as though this is less likely) Uric acid is 12.3 Phosphorus 6.5 Magnesium is 2.2 LDH 380 PTH 285.6 nephrology ( discussed with nephrology) and hematology on board will follow recommendations. i discussed with both hematology and nephrology about need to start uric lowering medications- will follow recommendation. (6) Essential hypertension Current Visit: Yes Status: Chronic Assessment and Plan: BP controlled. Furosemide and lisinopril have been discontinue due to worsening kidney function. continue metoprolol 12.5mg BID will monitor BP and adjust medications accordingly. (7) T2DM (type 2 diabetes mellitus) Current Visit: Yes Status: Chronic Assessment and Plan: increased levemir 15 mg BID continue with sliding scale insulin and adjust as per finger sticks (8) (HFpEF) heart failure with preserved ejection fraction Current Visit: Yes Status: Acute Assessment and Plan: signs of volume overload on chest x-ray. continue fluid restrictive strategies to 1.5 litters a day, plus daily weight. strict intake and output. furosemide discontinued due to worsening kidney function nephrology consulted for assistance in diuresis. cardiology on board (9) Goals of care, counseling/discussion Current Visit: Yes Status: Acute Assessment and Plan: palliative consulted as prognosis is poor (10) DVT prophylaxis Current Visit: Yes Status: Acute Assessment and Plan: on heparin drip - Time Spent with Patient Total time spent is greater than 50% in coordination of care (as documented) at patient's floor/unit and/or counseling patient: Internal Medicine: Result - Labs CBC & Chem 7: 12/25/18 14:15 12/26/18 01:30 Labs: BMP 12/26/18 01:30 Sodium 139 Potassium 4.8 Chloride 105 Carbon Dioxide 22 L BUN 52 H Creatinine 2.78 H Glucose 202 H Calcium 8.5 L Liver Function 12/26/18 Range/Units 01:30 Albumin 3.6 (3.5-5.7) g/dL - ABG Interpretation ABG results: ABG ABG pH 7.31 pH Units (7.32-7.45) L 12/25/18 15:03 ABG pCO2 45 mmHg (35-45) 12/25/18 15:03 ABG pO2 82 mmHg (85-104) L 12/25/18 15:03 ABG O2 Saturation 95 % (95-98) 12/25/18 15:03 PT/INR, D-dimer PT 18.8 Seconds (9.4-12.1) H 12/24/18 11:20 - Impressions Impressions Chest X-Ray 12/25/18 11:21 IMPRESSION: 1. Stable cardiomegaly with suspected small bilateral pleural effusions and associated bibasilar atelectasis. D/ / 12/25/2018 15:50:37 Kevin Ventura MD / [facility] Interpreting Provider: Kevin Ventura MD Abdomen/Pelvis CT 12/25/18 13:25 IMPRESSION: 1. Heterogeneous enhancement of the kidneys, especially on the right, concerning for renal infarction. 2. Delayed excretion of contrast from the kidneys, compatible with renal failure. 3. There is a slightly larger mass in the right upper lobe of the lung, concerning for malignancy with stable metastatic mediastinal lymph nodes. 4. Moderate right and mild left pleural effusions, increased in size on the left, with associated atelectasis in the lungs. 5. Small pericardial effusion. 6. Thickened secretions in the lower lobe bronchi which may be related to aspiration versus mucous plugging. 7. Anasarca. 8. Mild ascites, increased. 9. Calcified uterine fibroids. 10. Atherosclerotic disease. D/ / 12/25/2018 16:18:41 Kevin Ventura MD / [place] Interpreting Provider: Kevin eVntura MD Chest CT 12/25/18 13:25 IMPRESSION: 1. Heterogeneous enhancement of the kidneys, especially on the right, concerning for renal infarction. 2. Delayed excretion of contrast from the kidneys, compatible with renal failure. 3. There is a slightly larger mass in the right upper lobe of the lung, concerning for malignancy with stable metastatic mediastinal lymph nodes. 4. Moderate right and mild left pleural effusions, increased in size on the left, with associated atelectasis in the lungs. 5. Small pericardial effusion. 6. Thickened secretions in the lower lobe bronchi which may be related to aspiration versus mucous plugging. 7. Anasarca. 8. Mild ascites, increased. 9. Calcified uterine fibroids. 10. Atherosclerotic disease. D/ / 12/25/2018 16:18:41 Kevin Ventura MD / [place] Interpreting Provider: Kevin Ventura MD Chest Ultrasound 12/26/18 06:59 IMPRESSION: Small right pleural effusion, insufficient for thoracentesis. D/ / Khanh Marie MD / Khanh Marie MD Interpreting Provider: Khanh Marie MD Consult Discharge Plan - Plan Referrals: Michel Giron MD [Primary Care Provider] - (1) Acute renal failure Qualifiers: Acute renal failure type: unspecified Qualified Code(s): N17.9 - Acute kidney failure, unspecified (3) Squamous cell carcinoma of lung Qualifiers: Laterality: right Qualified Code(s): C34.91 - Malignant neoplasm of unspecified part of right bronchus or lung (7) T2DM (type 2 diabetes mellitus) Qualifiers: Diabetes mellitus residential insulin use: without residential use Diabetes mellitus complication status: without complication Qualified Code(s): E11.9 - Type 2 diabetes mellitus without complications (8) (HFpEF) heart failure with preserved ejection fraction Qualifiers: Heart failure chronicity: acute on chronic Qualified Code(s): I50.33 - Acute on chronic diastolic (congestive) heart failure
[2018-12-26] MEDS ORDERED: *HR* Heparin 5,000 UNIT/ML VIAL IVP ONE (17:14)
[2018-12-26] MEDS ORDERED: *HR* Heparin 5,000 UNIT/ML VIAL IVP PRN ×2 (17:14)
--- NOTE | 2018-12-26 17:37 | Nephrology Consult Note ---
Date of Encounter: 12/26/18 Time of Encounter: 17:00 Assessment and Plan (1) MARIE (acute kidney injury) Current Visit: Yes Status: Acute Elevated SCr in the setting of recent chemo with carboplatin, exposure to iv contrast with reduced po intake with possible renal infarct noted on CT with associated hyperuricemia and hyperphosphatemia due to reduced clearance Will check urine for UA, sodium, creatinine, eosinophils CPK WNL and potassium WNL, TLS not high on the list at this time Would benefit from increased fluids intake Needs to discuss goals of care, given cancer diagnosis along with heart and other respiratory issues, not sure [employer] would be aideal Would continue supportive care for now and avoid nephrotoxins if possible Agree with vascular surgery consult regarding possible renal infarct (2) Acute and chronic respiratory failure with hypoxia Current Visit: Yes Status: Acute Per primary team on intermittent biPAP (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 per oncology (4) NSTEMI (non-ST elevated myocardial infarction) Current Visit: Yes Status: Acute cardiology on board, C would be problematic given cancer diagnosis and MARIE (5) Squamous cell carcinoma of lung Current Visit: Yes Status: Chronic per oncology Qualifiers: Laterality: right Qualified Code(s): C34.91 - Malignant neoplasm of unspecified part of right bronchus or lung History of Present Illness - Reason for Consult Consult date: 12/26/18 Acute Kidney Injury Requesting physician: Yo Fajardo - History of Present Illness 63 y o female with PMH of dCHF, pHTN, COPD with chronic resp failure on 4 liter home oxygen with 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 Renal consulted for worsening SCr that started on admission worsening from 0.99 to 1.31 and currently 2.78 today. Of note, pt also received iv contrast for CTA rule out PE on admission. Pt seen and examined with reduced po intake and resultant decreased uop as well. No vomiting or diarrhea noted. CT abd/pelvis showed possible renal infarct as well. Past Med Surg Social Fam HX - Past Medical History Medical history: cancer, diabetes, hypertension, other Additional medical history: Lung/Throat CA Psychiatric history: no psych history - Past Surgical History Surgical History: appendectomy, cataract Additional surgical history: cardiac cath, tubal ligation - Social History Smoking Status: 2nd Hand Smoke Exposure Smokeless Tobacco Status: No Alcohol use: none Drug use: none - Family History Mother Adopted: [place]: Adriana Living Status: Age at : 57 Hx Family Cardiac Disorders: Yes Hx Family Respiratory Disorders: No Hx Family Cancer: Yes Hx Family GI Disorders: No Hx Family Genitourinary Disorders: No Hx Family Endocrine Disorder: Yes Hx Family Musculoskeletal Disorders: No Hx Family Neuromuscular Disorders: No Hx Family Neurologic Disorders: No Hx Family Autoimmune Disorders: No Medications and Allergies Albuterol Sulfate [Ventolin Hfa] 2 puff IH Q4H PRN 10/02/17 [History] Aspirin 325 mg PO DAILY 10/02/17 [History] Furosemide [Lasix] 20 mg PO TID 10/02/17 [History] Ipratropium/Albuterol Neb [Duoneb] 3 ml IH Q6H PRN 10/02/17 [History] Oxygen 3 l NS AD 10/02/17 [History] Potassium Chloride [Klor-Con 10] 5 meq PO DAILY 10/02/17 [History] Fluticasone/Salmeterol [Advair 250-50 Diskus] 1 puff IH BID 08/08/18 [History] Rivaroxaban [Xarelto] 20 mg PO DAILY #60 tablet 08/12/18 [Rx] Levalbuterol HCl [Xopenex] 1.25 mg IH Q6H 09/25/18 [History] Metoprolol Succinate [Toprol Xl] 25 mg PO DAILY 09/25/18 [History] Insulin Glargine,Hum.rec.anlog [Basaglar Kwikpen U-100] 5 unit SQ HS 11/11/18 [History] Promethazine [Phenergan] 25 mg PO Q6HR PRN #30 tablet 12/23/18 [Rx] Atorvastatin [Lipitor] 40 mg PO HS 12/25/18 [History] glipiZIDE [Glipizide ER] 10 mg PO DAILY 12/25/18 [History] Allergy/AdvReac Type Severity Reaction Status Date / Time Penicillins [PCN] Allergy Mild Hives Verified 12/04/18 13:41 Review of Systems Constitutional: fatigue (admits) Cardiovascular: chest pain (denies), leg edema (actually better than usual) Respiratory: dyspnea (admits) Gastrointestinal: diarrhea (denies), vomiting (had one episode the day of adm.) Exam - Vital Signs Vital signs: Initial Vital Signs Temp Pulse Resp BP Pulse Ox 94.9 F L 89 21 105/80 83 12/23/18 15:48 12/23/18 15:48 12/23/18 15:48 12/23/18 15:48 12/23/18 15:48 Vital Signs - Last 8 Hours Temp Pulse Resp BP Pulse Ox 12/26/18 16:56 97.8 F 77 18 117/75 91 12/26/18 11:26 97.5 F L 69 20 117/69 92 Intake and Output 12/26/18 12/26/18 12/26/18 07:59 15:59 23:59 Intake Total 245 / 245 540 / 540 Output Total 0 / 0 100 / 100 Balance 245 / 245 440 / 440 Intake: IV Fluids 245 / 245 300 / 300 Heparin 25,000 UNIT/250 ML D5W 145 / 145 25,000 unit In 250 ml @ 12 UNIT /KG/HR 10.416 mls/hr IVC .Q24H NANCY Rx#:[id number] Zosyn 3.375 GM In 0.9 % Sodium 100 / 100 100 / 100 Chloride (Mini-Bag +) 100 ML @ 25 mls/hr IVPB Q8H NANCY Rx#: [id number] Oral 0 / 0 Tube Feeding 240 / 240 Output: Urine 0 / 0 100 / 100 Other: Meal Lunch Percent of Meal Consumed 70% Stool Size Small Stool Consistency soft Stool Color Brown # Voids 1 # Bowel Movements 1 # Bowel Movement Diapers 1 Blood Glucose* 194 - General Appearance General appearance: chronically ill (NAD) EENT: ATNC, mucous membranes moist Neck: no JVD, supple Respiratory: course breath sounds Cardiology: no edema, normal S1, normal S2 Gastrointestinal: no tenderness, no guarding Integumentary: warm and dry Neurologic: no focal deficit Musculoskeletal: no deformities Psychiatric: mood/affect appropriate, cooperative Results - Lab Results 12/29/18 04:00 12/29/18 04:00 Most recent lab results ABG pH 7.31 pH Units (7.32-7.45) L 12/25/18 15:03 ABG pCO2 45 mmHg (35-45) 12/25/18 15:03 ABG pO2 82 mmHg (85-104) L 12/25/18 15:03 ABG HCO3 23 mEq/L (21-27) 12/25/18 15:03 ABG O2 Saturation 95 % (95-98) 12/25/18 15:03 Calcium 8.5 mg/dL (8.6-10.3) L 12/26/18 01:30 Phosphorus 6.5 mg/dL (2.7-4.5) H 12/26/18 01:30 Magnesium 2.2 mg/dL (1.6-2.6) 12/26/18 01:30 Consult Discharge Plan - Plan Referrals: Michel Giron MD [Primary Care Provider] -
--- NOTE | 2018-12-26 17:42 | Oncology Inp Progress Note ---
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 Status post concurrent chemoradiotherapy to the lung/glottic larynx with weekly cisplatin/paclitaxel x6 doses completed 09/03/2018. Chemotherapy course was abbreviated secondary to patient noncompliance. She was noted to have persistent disease involving the primary as well as mediastinal lymph nodes by PET/CT 11/26/2018 and recommended to start palliative intent dose attenuated carboplatin, abraxane and pembrolizumab initiated 12/12. Recommended to present to ER following treatment for hypoxia and hypotension. CTA which noted interval increase in size of the right apical mass compared to 09/26/2018, septal thickening in the right lung which could represent lymphangitic metastasis or a component of asymmetric pulmonary edema, New right- sided pleural effusion, scattered bilateral airspace disease likely represents superimposed pneumonia, negative for PE. Plan: Patient continues to be on bipap, she is hypoxic on 15L if attempted to wean, discussed potential consideration of therapeutic thoracentesis-appears small and not be amendable to drainage Hypoxia likely multifactorial secondary infection/PNA vs. COPD vs. HF complicated by known lung malignancy Pulmonology on board We will continue to monitor her course of recovery, per prior conversations with patient/provider team she has asked to remain full code, her overall prognosis appears guarded, agree with palliative care consult (2) Squamous cell carcinoma of lung Current Visit: Yes Status: Chronic Qualifiers: Laterality: right Qualified Code(s): C34.91 - Malignant neoplasm of unspecified part of right bronchus or lung (3) Elevated troponin Current Visit: Yes Status: Acute Assessment and plan: Cardiology consulted for concern for NSTEMI Currently denies chest pain Recommend echo and medical management, currently on heparin gtt BNP level elevated at 1332-Unable to diurese secondary to acute kidney injury. Echo 09/26/18 revealed LVEF 50-55%, CT chest revealed right-sided pleural effusion--- 2/2 CHF vs. infection vs. malignancy Cardiology does not recommend LHC due to MARIE and patients inability to tolerate laying flat (4) MARIE (acute kidney injury) Current Visit: Yes Status: Acute Assessment and plan: Worsening renal failure, multifactorial in setting of decreased oral intake, contrast exposure, hypotension, possible renal infarct noted on CT Noted elevated uric acid, LDH and phosphorus Potassium normal Mild hypocalcemia Plan: Discussed with Dr. Brenner---this does not appear to be consistent with tumor lysis syndrome and more consistent with patients worsening renal failure Nephrology consulted, appreciate recommendations Renal infarct---on heparin Oncology: Subj Interval history: Ms. Kumar is resting comfortably. Her family recently stepped out. She is on bipap. Denies pain or needs. Staff recently finished straight cath. - Constitutional General appearance: cooperative, no acute distress, obese, no febrile Exam: On bipap - Head Head exam: Present: atraumatic - ENT ENT exam: Present: mucous membranes moist, normal oropharynx - Respiratory Respiratory exam: Present: decreased breath sounds, wheezes. Absent: respiratory distress - Cardiovascular Cardiovascular exam: Present: RRR - GI/Abdominal GI/Abdominal exam: Present: normal bowel sounds, soft. Absent: tenderness - Extremities Exam Extremities exam: Present: normal inspection. Absent: calf tenderness - Neurological Exam Neurological exam: Present: alert, no focal deficits - Psychiatric Psychiatric exam: Present: normal affect, normal mood - Skin Skin exam: Present: dry, pallor, warm Oncology: Obj Data - Labs CBC & Chem 7: 12/27/18 02:20 12/27/18 02:20 Consult Discharge Plan - Plan Referrals: Michel Giron MD [Primary Care Provider] - Inpatient Charges Provider: Linda Blunt CNP Follow up - Inpatient: [id number]
[2018-12-26 18:15] LABS: Bilirubin,Urine Negative (Negative); Blood,Urine Negative (Negative); Clarity,Urine Turbid (Clear); Color,Urine Yellow (Yellow); Glucose,Urine (UA) Normal (Normal); Ketones,Urine Negative (Negative); Leukocyte Esterase,Urine Negative (Negative); Nitrite,Urine Negative (Negative); Protein,Urine 100 mg/dL (Neg-Trace); Specific Gravity,Urine > 1.030 (1.010-1.025); Urobilinogen,Urine Normal (Normal)
[2018-12-26 18:20] LABS: Hematocrit 43.8 % (35.3-44.9); Hemoglobin 13.6 g/dL (11.5-15.4); Mean Corpuscular HGB Conc 31.1 g/dL (31.6-35.5); Mean Corpuscular Hemoglobin 29.5 pg (28.0-33.3); Mean Platelet Volume 11.6 fL (9.4-12.4); Platelet Count 120 K/mcL (140-400); Red Blood Count 4.61 M/mcL (3.82-4.97); Red Cell Distribution Width 14.4 % (11.5-14.5)
--- NOTE | 2018-12-26 18:22 | Vascular/Endovasc Consult Note ---
Date of Encounter: 12/26/18 Time of Encounter: 18:20 Assessment and Plan (1) MARIE (acute kidney injury) Current Visit: Yes Status: Acute The patient is already on a heparin drip. I have ordered a renal artery ultrasound to see if there is anything that can be done from a vascular perspective. It is my understanding that this may be done tomorrow. I will rediscuss this with the patient at this time. I did inform the patient that this was being ordered, but did not go into great detail at this time because of wanting to present 1 line of thought as opposed to formal possibilities. Patient appeared to be quite satisfied with that. After the ultrasound is completed I will review. - History of Present Illness History of present illness: Ms. Kumar is a 63 year old female who is being evaluated for possible renal infarction. This was noted on CT. Patient has acute on chronic kidney disease with markedly worsening disease process. There is concern over whether or not anything can be done over and above heparin drip that has been started on this individual. No additional complaints are given at this time. Past Med Surg Social Fam HX - Past Medical History Medical history: cancer, diabetes, hypertension, other Additional medical history: Lung/Throat CA Psychiatric history: no psych history - Past Surgical History Surgical History: appendectomy, cataract Additional surgical history: cardiac cath, tubal ligation - Social History Smoking Status: 2nd Hand Smoke Exposure Smokeless Tobacco Status: No Alcohol use: none Drug use: none - Family History Mother Adopted: [place]: Adriana Living Status: Age at : 57 Hx Family Cardiac Disorders: Yes Hx Family Respiratory Disorders: No Hx Family Cancer: Yes Hx Family GI Disorders: No Hx Family Genitourinary Disorders: No Hx Family Endocrine Disorder: Yes Hx Family Musculoskeletal Disorders: No Hx Family Neuromuscular Disorders: No Hx Family Neurologic Disorders: No Hx Family Autoimmune Disorders: No Medications and Allergies Albuterol Sulfate [Ventolin Hfa] 2 puff IH Q4H PRN 10/02/17 [History] Aspirin 325 mg PO DAILY 10/02/17 [History] Furosemide [Lasix] 20 mg PO TID 10/02/17 [History] Ipratropium/Albuterol Neb [Duoneb] 3 ml IH Q6H PRN 10/02/17 [History] Oxygen 3 l NS AD 10/02/17 [History] Potassium Chloride [Klor-Con 10] 5 meq PO DAILY 10/02/17 [History] Fluticasone/Salmeterol [Advair 250-50 Diskus] 1 puff IH BID 08/08/18 [History] Rivaroxaban [Xarelto] 20 mg PO DAILY #60 tablet 08/12/18 [Rx] Levalbuterol HCl [Xopenex] 1.25 mg IH Q6H 09/25/18 [History] Metoprolol Succinate [Toprol Xl] 25 mg PO DAILY 09/25/18 [History] Insulin Glargine,Hum.rec.anlog [Basaglar Kwikpen U-100] 5 unit SQ HS 11/11/18 [History] Promethazine [Phenergan] 25 mg PO Q6HR PRN #30 tablet 12/23/18 [Rx] Atorvastatin [Lipitor] 40 mg PO HS 12/25/18 [History] glipiZIDE [Glipizide ER] 10 mg PO DAILY 12/25/18 [History] Allergy/AdvReac Type Severity Reaction Status Date / Time Penicillins [PCN] Allergy Mild Hives Verified 12/04/18 13:41 All Systems Review: The review of systems is reviewed on the chart and is considered as grossly unremarkable. The remainder of the systems were reviewed and are negative Exam Vital Signs, Last 4 Hours Temp Pulse Resp BP Pulse Ox 12/26/18 16:56 97.8 F 77 18 117/75 91 Exam: 63-year-old female who appears in moderate distress secondary to shortness of breath. She is awake, alert, coherent, and cooperative. HEENT examination is grossly unremarkable. Patient is wearing nasal oxygen at present and appears to be breathing reasonably easily. Neck is supple and trachea is midline Heart is regular rate and rhythm Lungs are clear but diminished Abdomen is soft without obvious masses. There is no significant localizing tenderness, but the patient does have generalized tenderness. There is not flank pain noted. Impression genitalia examinations are deferred to her primary caregiver Extremities are present 4 and grossly unremarkable. Dorsal pedal and posterior tibial pulses are nonpalpable. Patient gives no complaints in regards to upper or lower extremities. Neurologic exam shows no gross motor deficit Consult Discharge Plan - Plan Referrals: Michel Giron MD [Primary Care Provider] -
[2018-12-26 18:32] LABS: Heparin anti-factor XA UFH 0.01 IU/mL (0.30-0.70)
[2018-12-26 18:33] LABS: INR 1.3; Prothrombin Time 14.2 Seconds (9.4-12.1)
[2018-12-26 19:58] LABS: RBC,Urine 0-3 per hpf (0-3)
[2018-12-26 19:59] LABS: Amorphous Sediment,Urine Many (Few)
[2018-12-26 21:44] LABS: Potassium,Urine 68.9 mEq/L; Sodium, Urine 17.2 mEq/L
[2018-12-26] MEDS ORDERED: *HR* Heparin 5,000 UNIT/ML VIAL SQ SCH (22:00)
[2018-12-27] MEDS: Piperacillin/Tazobactam 3.375 GM in 0.9 % Sodium Chloride Mini Bag 100 ML IVPB SCH ×2 (00:27→11:30)
[2018-12-27 02:38] LABS: Hematocrit 41.9 % (35.3-44.9); Hemoglobin 13.1 g/dL (11.5-15.4); Mean Corpuscular HGB Conc 31.3 g/dL (31.6-35.5); Mean Corpuscular Hemoglobin 29.3 pg (28.0-33.3); Mean Corpuscular Volume 93.7 fL (83.0-100.0); Platelet Count 114 K/mcL (140-400); Red Blood Count 4.47 M/mcL (3.82-4.97); Red Cell Distribution Width 14.3 % (11.5-14.5)
[2018-12-27 02:58] LABS: Albumin 3.4 g/dL (3.5-5.7); Albumin/Globulin Ratio 1.8 (1.1-2.2); Bilirubin,Total 0.6 mg/dL (0.3-1.0); Calcium 8.5 mg/dL (8.6-10.3); Globulin 1.9 g/dL (2.4-3.5); Phosphorous 6.2 mg/dL (2.7-4.5); Total Protein 5.3 g/dL (6.4-8.9)
[2018-12-27] MEDS: MethylPREDNISolone 40 MG/ML VIAL IVP SCH ×2 (04:54→18:00)
[2018-12-27] MEDS: Insulin LISPRO 300 UNITS/3 ML VIAL SQ SCH ×3 (09:36→18:01)
[2018-12-27] MEDS: Budesonide/Formoterol 80/4.5 MDI IH SCH ×2 (10:29→21:45)
--- NOTE | 2018-12-27 11:12 | Vascular/Endovas Progress Note ---
Date of Encounter: 12/27/18 Time of Encounter: 11:10 - Assessment and plan (1) MARIE (acute kidney injury) Current Visit: Yes Status: Acute The patient is already on a heparin drip. I have ordered a renal artery ultrasound to see if there is anything that can be done from a vascular perspective. It is my understanding that this may be done tomorrow. I will rediscuss this with the patient at this time. I did inform the patient that this was being ordered, but did not go into great detail at this time because of wanting to present 1 line of thought as opposed to formal possibilities. Patient appeared to be quite satisfied with that. After the ultrasound is completed I will review. Discussion with patient/family: At this time I informed the patient and family members that it did appear that there was at least some flow to both kidneys. The patient does not appear to be a reasonable candidate for any type of vascular intervention, whether that be open intervention or endovascular intervention. It is my understanding that the patient is being referred to Hospice, and long-term prognosis is poor. With that in mind, we will remain available for continuing care as necessary, but at this point in time we will not take an active role. If further evaluation is necessary, please do not hesitate to contact this service. - Subjective Interval history: 63-year-old female in continued moderate to significant distress secondary to shortness of breath. He is being evaluated for possible renal artery stenosis associated with renal infarction. Vital Signs, Last 4 Hours Temp Pulse Resp BP Pulse Ox 12/27/18 10:29 27 91 12/27/18 07:21 97.4 F L 70 22 134/90 94 Exam: 63-year-old female in moderate distress secondary to shortness of breath. She is awake, alert, coherent, and cooperative. The patient is wearing a BiPAP at this time, and nursing indicates that if this is removed she becomes markedly short of breath. There are multiple family members in the room at this time. I had previously ordered a renal artery ultrasound, and as I entered the room the Tech for this had just completed the exam and was leaving the room. I did discuss the exam with her, the exam itself was somewhat limited because of extraneous factors, but it appeared in general that there was at least some flow to both kidneys. Any degree of stenosis of vessels was unable to be determined. Physical examination is largely unchanged from previous and is somewhat limited by the overall circumstances. Results 12/27/18 02:20 12/27/18 02:20 Lab Results, Last 24 hours 12/26/18 12/26/18 12/27/18 18:10 18:10 02:20 WBC 10.4 8.5 Hgb 13.6 13.1 Hct 43.8 41.9 Plt Count 120 L 114 L INR 1.3 Sodium Potassium Chloride Carbon Dioxide BUN Creatinine Glucose Calcium Total Bilirubin AST ALT Alkaline Phosphatase 12/27/18 02:20 WBC Hgb Hct Plt Count INR Sodium 137 Potassium 5.0 Chloride 105 Carbon Dioxide 23 BUN 60 H Creatinine 3.28 H Glucose 231 H Calcium 8.5 L Total Bilirubin 0.6 AST 101 H ALT 255 H Alkaline Phosphatase 79 Consult Discharge Plan - Plan Referrals: Michel Giron MD [Primary Care Provider] -
[2018-12-27] MEDS: 0.9 % Sodium Chloride 1,000 ML IVC SCH (11:27)
[2018-12-27] MEDS: Heparin 25,000 UNIT/250 ML D5W 25,000 UNIT/250 ML IV.SOLN IVC SCH (11:42)
[2018-12-27] MEDS: Insulin DETEMIR 100 UNIT/ML X5UNITS SQ SCH ×2 (11:46→21:20)
--- NOTE | 2018-12-27 12:23 | Nephrology Progress Note ---
Date of Encounter: 12/27/18 Time of Encounter: 12:00 - Assessment and Plan (1) MARIE (acute kidney injury) Current Visit: Yes Status: Acute SCr continues to worsen at 3.28, GFR 14, etiology of MARIE likely multifactorial Urine studies with UA and sodium consistent with pre-renal state, agree with IVF Discussed at length goals of care with patient. 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 not indicated at this time, would like to know her wishes Will repeat uric acid level Vitamin D noted low with elevated PTH, will start ergocalciferol US of kidney with good sized kidneys noted and read as unremarkable (2) Acute and chronic respiratory failure with hypoxia Current Visit: Yes Status: Acute Per primary team, currently on BiPAP still full code, palliative care on board (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 per oncology (4) NSTEMI (non-ST elevated myocardial infarction) Current Visit: Yes Status: Acute Cardio signed off (5) Squamous cell carcinoma of lung Current Visit: Yes Status: Chronic per oncology Qualifiers: Laterality: right Qualified Code(s): C34.91 - Malignant neoplasm of unspecified part of right bronchus or lung Subjective Principal diagnosis: SOB Interval history: Pt seen and examined with interim noted, now on biPAP after experiencing resp. distress overnight. family at bedside includes sister, daughter and son. Pt note d with de-sats to 70s with movements Objective - Vital Signs Vital signs: Vital Signs Temp Pulse Resp BP Pulse Ox 12/27/18 11:45 97.3 F L 75 22 122/76 92 12/27/18 10:29 27 91 12/27/18 07:21 97.4 F L 70 22 134/90 94 12/27/18 05:11 97.7 F 68 20 117/84 93 12/27/18 04:07 20 89 12/27/18 00:06 97.6 F 72 16 126/82 96 12/26/18 23:32 22 94 12/26/18 21:26 118/80 12/26/18 21:22 97.7 F 78 22 89 12/26/18 19:49 24 97 12/26/18 16:56 97.8 F 77 18 117/75 91 Intake and Output 12/26/18 12/27/18 12/27/18 23:59 07:59 15:59 Intake Total 0 / 0 190 / 190 160 / 160 Output Total 0 / 0 0 / 0 Balance 0 / 0 190 / 190 160 / 160 Intake: IV Fluids 190 / 190 160 / 160 Heparin 25,000 UNIT/250 ML D5W 90 / 90 160 / 160 25,000 unit In 250 ml @ 14 UNIT /KG/HR 12.39 mls/hr IVC . [id number] NANCY Rx#:[id number] Zosyn 3.375 GM In 0.9 % Sodium 100 / 100 Chloride (Mini-Bag +) 100 ML @ 25 mls/hr IVPB Q12H NANCY Rx#: [id number] Oral 0 / 0 0 / 0 Output: Urine 0 / 0 0 / 0 Other: Meal Breakfast Stool Size Small Stool Consistency soft Stool Color Brown # Urine Diapers 1 # Bowel Movement Diapers 1 Weight 88.7 kg Blood Glucose* 225 255 221 Patient Weight 12/27/18 23:59 Weight 88.7 kg - General Appearance General appearance: Present: moderate distress (on biPAP) EENT: Present: ATNC, mucous membranes dry Neck: Present: no JVD, supple Cardiology: Present: no edema, normal S1, normal S2 Gastrointestinal: Present: no tenderness, no guarding Integumentary: Present: warm and dry Neurologic: Present: no focal deficit Musculoskeletal: Present: no deformities Psychiatric: Present: mood/affect appropriate, cooperative - Lab 12/29/18 04:00 12/29/18 04:00 Most recent lab results ABG pH 7.31 pH Units (7.32-7.45) L 12/25/18 15:03 ABG pCO2 45 mmHg (35-45) 12/25/18 15:03 ABG pO2 82 mmHg (85-104) L 12/25/18 15:03 ABG HCO3 23 mEq/L (21-27) 12/25/18 15:03 ABG O2 Saturation 95 % (95-98) 12/25/18 15:03 Calcium 8.5 mg/dL (8.6-10.3) L 12/27/18 02:20 Phosphorus 6.2 mg/dL (2.7-4.5) H 12/27/18 02:20 Magnesium 2.2 mg/dL (1.6-2.6) 12/26/18 01:30 Urine Creatinine 131 mg/dL 12/26/18 17:25 Urine Sodium 17.2 mEq/L 12/26/18 17:25 Consult Discharge Plan - Plan Referrals: Michel Giron MD [Primary Care Provider] -
--- NOTE | 2018-12-27 13:38 | Internal Med Progress Note ---
Hospitalist Progress Note - Encounter Date of Encounter: 12/27/18 Time of Encounter: 08:30 - Subjective Interval History: Patient was seen and examined at bedside. Family at bedside. I discussed patient's condition different lab findings and image findings with patient and family and they understand that her condition is serious and are eager to speak to palliative care physician. I discussed that patient's kidney function is worsening and she might need hemodialysis however deferring that to the controlled area checker who spoke to the patient yesterday. She was unable to have any by mouth intake secondary to BiPAP dependence. I discussed that I will start her on gentle hydration as she has not had any oral intake due to being BiPAP dependent however despite exacerbate her heart failure and pleural effusions. She understands that this might worsen her respiratory status and she might get intubated. All questions answered. Currently she said complaining of any pain. Denies any fever, chills, nausea, vomiting or diarrhea. Has had no chest pain or palpitations. - Exam Vitals: Temp Pulse Resp BP Pulse Ox 97.3 F L 75 22 122/76 92 12/27/18 11:45 12/27/18 11:45 12/27/18 11:45 12/27/18 11:45 12/27/18 11:45 Exam: Vitals: Reviewed General: Obese, Alert and oriented. In mild distress due to respiratory distress on BiPAP Skin: Normal color, no rash, no lesions. HEENT: EOM, pupils equal, round and reactive. Cardiovascular: RRR, normal S1 & S2, no rubs, murmurs or gallops. Lungs: scattered b/l wheezes, rales on the left lower lobe, crackles. Abdomen: Obese, soft, non-tender, no rigidity. Extremities: No deformity, no edema or tenderness, no joint swelling or clubbing. Neurological: No focal deficit - Assessment and Plan (1) Acute renal failure Current Visit: Yes Status: Acute Assessment and Plan: Multifactorial secondary to nephrotoxic medications along with IV contrast, renal infarction and dehydration Urine studies with UA and sodium consistent with pre-renal state, nephrology was consulted discussed case with Dr. Tillman- recommendations appreciated vascular surgery recommendations appreciated continue with heparin drip for now hematology oncology on board ( has renal infarct) Follow repeat uric acid level started her on gentle hydration with normal saline at 50 mL per hour as she has had no oral intake overnight/ remains bipap dependent and remains NPO along with worsening creatinine. I discussed the risks associated with this with the patient including possible intubation and she understands. CT abdomen and pelvis: Heterogeneous enhancement of the kidneys, especially on the right, concerning for renal infarction. 2. Delayed excretion of contrast from the kidneys, compatible with renal failure. (2) Acute and chronic respiratory failure with hypoxia Current Visit: Yes Status: Acute Assessment and Plan: Has bilateral pleural effusions but not large enough to aspirate- cannot diures as she has ARF. patient remains to be hypoxic. 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 Status post concurrent chemoradiotherapy to the lung/glottic larynx with weekly cisplatin/paclitaxel x6 doses completed 09/03/2018. Chemotherapy course was abbreviated secondary to patient noncompliance. palliative intent dose attenuated carboplatin, abraxane and pembrolizumab initiated 12/23/2018. oncology is on board will follow recommendations. (4) NSTEMI (non-ST elevated myocardial infarction) Current Visit: Yes Status: Acute Assessment and Plan: patient denies chest pain. elevated troponin levels 0.13 --> 1.28--> 3.81 in the setting of acute kidney injury and acute respiratory failure. EKG revealed sinus rhythm with intraventricular conduction delay. continue with BB ( holding ACEI secondary to MARIE), ASA and lipitor cardiology consulted and heparin drip was discontinued and recommended medical management as per cardiology " Do not recommend LHC at this time due to worsening renal function and inability to lay flat." (5) Elevated blood uric acid level Current Visit: Yes Status: Acute Assessment and Plan: ? secondary to ARF vs tumor lysis (discussed with hematology/oncology who feels as though this is less likely) Uric acid is 12.3 Phosphorus 6.5 Magnesium is 2.2 LDH 380 PTH 285.6 Vitamin D level is low nephrology ( discussed with nephrology) and hematology on board will follow rec ommendations. i discussed with both hematology and nephrology about need to start uric lowering medications- will follow recommendation. (6) Essential hypertension Current Visit: Yes Status: Chronic Assessment and Plan: BP controlled. Furosemide and lisinopril have been discontinue due to worsening kidney function. continue metoprolol 12.5mg BID will monitor BP and adjust medications accordingly. (7) T2DM (type 2 diabetes mellitus) Current Visit: Yes Status: Chronic Assessment and Plan: increased levemir 15 mg BID continue with sliding scale insulin and adjust as per finger sticks (8) (HFpEF) heart failure with preserved ejection fraction Current Visit: Yes Status: Acute Assessment and Plan: signs of volume overload on chest x-ray. continue fluid restrictive strategies to 1.5 litters a day, plus daily weight. strict intake and output. furosemide discontinued due to worsening kidney function nephrology consulted for assistance in diuresis. cardiology on board (9) Goals of care, counseling/discussion Current Visit: Yes Status: Acute Assessment and Plan: palliative consulted will follow recommendations I have discussed with the family and the patient at bedside that her prognosis remains poor due to multiple comorbidities currently she wishes to be full code (10) Vitamin D deficiency Current Visit: Yes Status: Acute Assessment and Plan: was started on ergocalciferol (11) DVT prophylaxis Current Visit: Yes Status: Acute Assessment and Plan: on heparin drip - Time Spent with Patient Total time spent is greater than 50% in coordination of care (as documented) at patient's floor/unit and/or counseling patient: Internal Medicine: Result - Labs CBC & Chem 7: 12/27/18 02:20 12/27/18 02:20 Labs: Short CBC 12/26/18 12/27/18 Range/Units 18:10 02:20 WBC 10.4 8.5 (4.3-11.1) K/mcL Hgb 13.6 13.1 (11.5-15.4) g/dL Hct 43.8 41.9 (35.3-44.9) % Plt Count 120 L 114 L (140-400) K/mcL BMP 12/27/18 02:20 Sodium 137 Potassium 5.0 Chloride 105 Carbon Dioxide 23 BUN 60 H Creatinine 3.28 H Glucose 231 H Calcium 8.5 L Liver Function 12/27/18 Range/Units 02:20 Total Bilirubin 0.6 (0.3-1.0) mg/dL AST 101 H (13-39) Units/L ALT 255 H (7-52) Units/L Alkaline Phosphatase 79 (34-104) Units/L Albumin 3.4 L (3.5-5.7) g/dL Urine 12/26/18 Range/Units 17:25 Urine Color Yellow (Yellow) Urine Clarity Turbid A (Clear) Urine pH 5.0 (5.0-8.0) pH Units Ur Specific [place] > 1.030 H (1.010-1.025) Urine Protein 100 H (Neg-Trace) mg/dL Urine Glucose (UA) Normal (Normal) mg/dL - ABG Interpretation ABG results: ABG ABG pH 7.31 pH Units (7.32-7.45) L 12/25/18 15:03 ABG pCO2 45 mmHg (35-45) 12/25/18 15:03 ABG pO2 82 mmHg (85-104) L 12/25/18 15:03 ABG O2 Saturation 95 % (95-98) 12/25/18 15:03 PT/INR, D-dimer PT 14.2 Seconds (9.4-12.1) H 12/26/18 18:10 - Impressions Impressions Retroperitoneum Ultrasound 12/26/18 16:00 IMPRESSION: Kidneys are unremarkable. Small amount of ascites in the pelvis. D/ / Laquita Cloud MD / Laquita Cloud MD Interpreting Provider: Laquita Cloud MD Consult Discharge Plan - Plan Referrals: Michel Giron MD [Primary Care Provider] - (1) Acute renal failure Qualifiers: Acute renal failure type: unspecified Qualified Code(s): N17.9 - Acute kidney failure, unspecified (3) Squamous cell carcinoma of lung Qualifiers: Laterality: right Qualified Code(s): C34.91 - Malignant neoplasm of unspecified part of right bronchus or lung (7) T2DM (type 2 diabetes mellitus) Qualifiers: Diabetes mellitus emt intermediate insulin use: without emt intermediate use Diabetes mellitus complication status: without complication Qualified Code(s): E11.9 - Type 2 diabetes mellitus without complications (8) (HFpEF) heart failure with preserved ejection fraction Qualifiers: Heart failure chronicity: acute on chronic Qualified Code(s): I50.33 - Acute on chronic diastolic (congestive) heart failure
[2018-12-27 14:35] LABS: Uric Acid 12.3 mg/dL (2.3-7.6)
--- NOTE | 2018-12-27 14:37 | Palliative - Consult Note ---
Date of Encounter: 12/27/18 Time of Encounter: 10:30 - Assessment and Plan (1) Goals of care, counseling/discussion Current Visit: Yes Status: Acute Assessment and plan: 40 minutes extensive family meeting with patient and daughters Sharla Berg, son-in-law Erik and grand-daughter Brea and grand-son Ravinder and son Ramesh. Patient was communicating by writing. Discussed current medical condition, complications, trajectory of illness, prognosis and treatment options. Family seemed to understand the severity and critical conditions of patient. Discussed GOC, including code status. Patient and family were not yet ready to consider any changes in code status, as they remained hopeful for improvement in the next few days. Follow up discussion on Saturday, unless there is any acute changes tomorrow. Patient remains full code. (2) MARIE (acute kidney injury) Current Visit: Yes Status: Acute Assessment and plan: multifactorial etiology. Nephrology following (3) Acute and chronic respiratory failure with hypoxia Current Visit: Yes Status: Acute Assessment and plan: Patient i now BiPAP dependent, unable to feed herself. She appears very anxious when there is any sound from the BiPAP machine. Will benefit from low dose morphine 5 mg q4hrs for dyspnea and anxiety when BiPAP is removed. Pulmonary on the case. (4) Non-small cell lung cancer Current Visit: No Status: Chronic Qualifiers: Laterality: unspecified laterality Qualified Code(s): C34.90 - Malignant neoplasm of unspecified part of unspecified bronchus or lung (5) 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 (6) NSTEMI (non-ST elevated myocardial infarction) Current Visit: Yes Status: Acute Assessment and plan: medical management per cardiology Palliative-CN HPI - Data of Consult Patient: new to practice Consult date: 12/26/18 Requesting Physician: Yo Fajardo MD Primary Care Provider: Michel Giron MD - Consult Narrative Palliative Care/Comfort Measures: Palliative care Reason for consult: goals of care discussion History of present illness: Ms. Kumar is a 63 year old female with relevant PMH of diastolic heart failure, COPD with pHTN and chronic hypoxic respiratory failure on 4L home oxygen, stage III squamous cell carcinoma of the right upper lobe of the lung and stage III SCC of glotic/larynx, status post concurrent chemoradiotherapy, was admitted on 12/23/2018 from cancer center due to hypoxia and hypotension. Patient had previously completed 6 courses of chemotherapy, and follow up imaging showed worsening of disease. on the day of admission, she was getting a cycle of palliative chemo when it had to be aborted due to SOB and hypotension. As per family present at the bedside, patient was having worsening shortness of breath for the last few weeks, to a point where she had to stop after minimal exertion to catch her breath. Hospital stay have been complicated by worsening lung function to a point that she is now BiPAP dependent. CTA: septal thickening of R lung, R pleural effusion, b/l air space disease. DD copd vs pneumonia vs malignancy. She had an elevation in troponin, and is being treated for NSTEMI medically with heparin gtt, per cardiology not a candidate for LHC due to MARIE and orthopnea. Patient is also having worsening MARIE, cr 3.28 today and decreased urine output. Renal ultrasound was unremarkable. Palliative care for GOC discussion. At the time of exam today, patient on BiPAP, appears anxious, she endorses feeling of abdominal fullness, denies any pain, nausea, vomiting. She was surrounded by family. CC: Yo Fajardo MD - Time Spent with Patient Time: Total time spent is greater than 50% in coordination of care (as documented) at patient's floor/unit and/or counseling patient: Time with patient: 60 minutes Past Med Surg Social Fam HX - Past Medical History Medical history: cancer, diabetes, hypertension, other Additional medical history: Lung/Throat CA Psychiatric history: no psych history - Past Surgical History Surgical History: appendectomy, cataract Additional surgical history: cardiac cath, tubal ligation - Social History Smoking Status: 2nd Hand Smoke Exposure Smokeless Tobacco Status: No Alcohol use: none Drug use: none - Family History Mother Adopted: [place]: Adriana Living Status: Age at : 59 Hx Family Cardiac Disorders: Yes Hx Family Respiratory Disorders: No Hx Family Cancer: Yes Hx Family GI Disorders: No Hx Family Genitourinary Disorders: No Hx Family Endocrine Disorder: Yes Hx Family Musculoskeletal Disorders: No Hx Family Neuromuscular Disorders: No Hx Family Neurologic Disorders: No Hx Family Autoimmune Disorders: No Medications and Allergies Albuterol Sulfate [Ventolin Hfa] 2 puff IH Q4H PRN 10/02/17 [History] Aspirin 325 mg PO DAILY 10/02/17 [History] Furosemide [Lasix] 20 mg PO TID 10/02/17 [History] Ipratropium/Albuterol Neb [Duoneb] 3 ml IH Q6H PRN 10/02/17 [History] Oxygen 3 l NS AD 10/02/17 [History] Potassium Chloride [Klor-Con 10] 5 meq PO DAILY 10/02/17 [History] Fluticasone/Salmeterol [Advair 250-50 Diskus] 1 puff IH BID 08/08/18 [History] Rivaroxaban [Xarelto] 20 mg PO DAILY #60 tablet 08/12/18 [Rx] Levalbuterol HCl [Xopenex] 1.25 mg IH Q6H 09/25/18 [History] Metoprolol Succinate [Toprol Xl] 25 mg PO DAILY 09/25/18 [History] Insulin Glargine,Hum.rec.anlog [Basaglar Kwikpen U-100] 5 unit SQ HS 11/11/18 [History] Promethazine [Phenergan] 25 mg PO Q6HR PRN #30 tablet 12/23/18 [Rx] Atorvastatin [Lipitor] 40 mg PO HS 12/25/18 [History] glipiZIDE [Glipizide ER] 10 mg PO DAILY 12/25/18 [History] Allergy/AdvReac Type Severity Reaction Status Date / Time Penicillins [PCN] Allergy Mild Hives Verified 12/04/18 13:41 - Constitutional Constitutional ROS PAL: fatigue - EENT Ears, nose, mouth, throat: dry mouth - Cardiovascular Cardiovascular ROS: dyspnea on exertion, no chest pain - Respiratory Respiratory: dyspnea, wheezing - Gastrointestinal Gastrointestinal: bloating, no abdominal pain - Genitourinary Palliative ROS female: no difficulty voiding, no dysuria - Musculoskeletal Musculoskeletal ROS IM: muscle weakness - Neurological Neurological ROS: no focal weakness Palliative Care-Exam - Constitutional Vitals: Temp Pulse Resp BP Pulse Ox 97.3 F L 75 22 122/76 92 12/27/18 11:45 12/27/18 11:45 12/27/18 11:45 12/27/18 11:45 12/27/18 11:45 General appearance: Present: cooperative, no acute distress, obese. Absent: febrile Exam: Vitals: Reviewed General: Obese, Alert and oriented. In mild respiratory distress on BiPAP Skin: Normal color, no rash, no lesions. HEENT: EOM, pupils equal, round and reactive. Cardiovascular: RRR, normal S1 & S2, no rubs, murmurs or gallops. Lungs: scattered b/l wheezes, rales on the left lower lobe, crackles. Abdomen: Obese, soft, non-tender, no rigidity. Extremities: bilateral edema, No deformity, tenderness, no joint swelling or clubbing. Neurological: No focal deficit Internal Medicine - CN: Reslt - Labs CBC & Chem 7: 12/27/18 02:20 12/27/18 02:20 Labs: Short CBC 12/26/18 12/27/18 Range/Units 18:10 02:20 WBC 10.4 8.5 (4.3-11.1) K/mcL Hgb 13.6 13.1 (11.5-15.4) g/dL Hct 43.8 41.9 (35.3-44.9) % Plt Count 120 L 114 L (140-400) K/mcL BMP 12/27/18 02:20 Sodium 137 Potassium 5.0 Chloride 105 Carbon Dioxide 23 BUN 60 H Creatinine 3.28 H Glucose 231 H Calcium 8.5 L Liver Function 12/27/18 Range/Units 02:20 Total Bilirubin 0.6 (0.3-1.0) mg/dL AST 101 H (13-39) Units/L ALT 255 H (7-52) Units/L Alkaline Phosphatase 79 (34-104) Units/L Albumin 3.4 L (3.5-5.7) g/dL Urine 12/26/18 Range/Units 17:25 Urine Color Yellow (Yellow) Urine Clarity Turbid A (Clear) Urine pH 5.0 (5.0-8.0) pH Units Ur Specific [place] > 1.030 H (1.010-1.025) Urine Protein 100 H (Neg-Trace) mg/dL Urine Glucose (UA) Normal (Normal) mg/dL - ABG Interpretation ABG results: ABG ABG pH 7.31 pH Units (7.32-7.45) L 12/25/18 15:03 ABG pCO2 45 mmHg (35-45) 12/25/18 15:03 ABG pO2 82 mmHg (85-104) L 12/25/18 15:03 ABG O2 Saturation 95 % (95-98) 12/25/18 15:03 PT/INR, D-dimer PT 14.2 Seconds (9.4-12.1) H 12/26/18 18:10 - Impressions Impressions Retroperitoneum Ultrasound 12/26/18 16:00 IMPRESSION: Kidneys are unremarkable. Small amount of ascites in the pelvis. D/ / Laquita Cloud MD / Laquita Cloud MD Interpreting Provider: Laquita Cloud MD Consult Discharge Plan - Plan Referrals: Michel Giron MD [Primary Care Provider] - Palliative Quality Palliative Quality: Screen for Code Status: Yes, Screen for Goals of Care: Yes, Screen for Pain: Yes, If Pain Regimen Started, Initiate Bowel Regimen: NA, Screen for Nausea/Vomitting: Yes Code Status: 12/23/18 20:11 Resuscitation Status: Active [RES] Stat Comment: Resuscitation Status: Full Code Palliative Scale - Palliative Performance Scale How ambulatory is this patient?: Mainly in bed What is patient's level of activity and evidence of disease?: Unable to do any work, Extensive disease How much self-care assistance does patient require?: Considerable assistance required How much oral intake does the patient have?: Minimal to sips What is this patient's level of consciousness?: Full Palliative Performance Score: 40 %
[2018-12-27] MEDS: Aspirin 81 MG TAB.CHEW PO SCH (15:27)
--- NOTE | 2018-12-27 19:16 | Oncology Inp Progress Note ---
Date of Encounter: 12/29/18 Time of Encounter: 19:14 (1) MARIE (acute kidney injury) Current Visit: Yes Status: Acute Assessment and plan: She has worsening of renal function since admission. Nephrology involved. We will continue to watch. Gentle hydration given extravascular fluid retention. She still has pre-renal acute kidney injury picture (2) Acute and chronic respiratory failure with hypoxia Current Visit: Yes Status: Acute Assessment and plan: This is multifactorial. Currently on BiPAP pulmonology is involved. CT angiogram chest during this admission did not show any pulmonary embolism. Shortness of breath could be secondary to her non-ST OH and right ventricular dysfunction (3) Lung cancer Current Visit: Yes Status: Acute Assessment and plan: Progression of right lung mass. Currently she is not physically stable to undergo any cancer treatment Qualifiers: Laterality: right Lung location: lower lobe of lung Oncology: Subj Interval history: Still on BiPAP which she has been since admission. She has evidence of some volume overload with lower extremity edema and some ascites and mild effusion. But she was dehydrated intravascularly. High BUN and creatinine. Creatinine slowly rising currently 3.18 today and was around 2 on admission. She is on IV fluids 50 mL per minute. She has dry mouth and we will give her some SWABS. Head and neck cancer and lung cancer. She has progression of lung mass in the right side. Second line chemotherapy with carboplatin and Abraxane Methotrexate was initiated 12/23/2018 but patient admitted from cancer Center because of hypotension She also sustained non-ST OH. Cardiology involved. Workup showed low ejection fraction around 40% by echocardiogram. Left ventricular hypertrophy . Right ventricle hypokinesis and pulmonary hypertension. Cardiology consult note Oncology: Obj Data - Labs CBC & Chem 7: 12/29/18 04:00 12/29/18 04:00 Consult Discharge Plan - Plan Referrals: Michel Giron MD [Primary Care Provider] - Inpatient Charges Provider: Dr. Saloni Solomon Follow up - Inpatient: [id number] - Attending Attestation I examined this patient and my medical decision-making was reviewed with the Advanced Practice Nurse. I agree with the documented findings, disposition and treatment plan as described except to the extent set forth below. 1. Acute respiratory failure on BiPAP. Etiology most likely cardiac with CHF findings by x-ray. She received 1 dose of Pembrolizumab 12/23/2018. Would repeat CT chest without contrast to make sure she does not have immunotherapy related pneumonitis 2. Acute kidney injury creatinine around 3.2. Nephrology following. Challenging to hydrate her given peripheral edema and fluid retention
[2018-12-28] MEDS: Piperacillin/Tazobactam 3.375 GM in 0.9 % Sodium Chloride Mini Bag 100 ML IVPB SCH ×2 (00:56→12:00)
[2018-12-28 05:20] LABS: Calcium 8.4 mg/dL (8.6-10.3); Magnesium 2.4 mg/dL (1.6-2.6); Phosphorous 6.2 mg/dL (2.7-4.5); Potassium 4.7 mEq/L (3.5-5.1); Uric Acid 11.8 mg/dL (2.3-7.6)
[2018-12-28] MEDS: MethylPREDNISolone 40 MG/ML VIAL IVP SCH ×2 (05:51→17:47)
[2018-12-28] MEDS: 0.9 % Sodium Chloride 1,000 ML IVC SCH (05:52)
[2018-12-28] MEDS: Insulin LISPRO 300 UNITS/3 ML VIAL SQ SCH ×3 (05:52→17:47)
[2018-12-28] MEDS: Budesonide/Formoterol 80/4.5 MDI IH SCH ×2 (07:29→21:57)
[2018-12-28] MEDS: Heparin 25,000 UNIT/250 ML D5W 25,000 UNIT/250 ML IV.SOLN IVC SCH (09:01)
--- NOTE | 2018-12-28 09:13 | Palliative Progress Note ---
Date of Encounter: 12/28/18 Time of Encounter: 09:13 - Assessment and plan (1) Goals of care, counseling/discussion Current Visit: Yes Status: Acute Assessment and plan: inquired with patient and family if any further discussion about GOC happened. Daughter was very tearful and unrealistic. She stated that she wanted al to be d one to keep patient alive and was ok with continued BiPAP and manager intermediate life support as she is "positive she will get better". Patient was very emotional as well and did not want any further discussion. Emotional support provided. Palliative care will follow up tomorrow. (2) MARIE (acute kidney injury) Current Visit: Yes Status: Acute Assessment and plan: Creatinine slightly better today. (3) Acute and chronic respiratory failure with hypoxia Current Visit: Yes Status: Acute Assessment and plan: Remains BiPAP dependent. Looks anxious, but refuses any anxiolytic. Will benefit from low dose morphine 5 mg q4hrs for dyspnea and anxiety when BiPAP is removed. Pulmonary on the case. 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 Remains NPO. complaining of abdominal fulness, but had a BM. Daughter was present at the bedside. - Constitutional Vitals: Abnormal lab results MCHC 31.3 g/dL (31.6-35.5) L 12/27/18 02:20 Plt Count 114 K/mcL (140-400) L 12/27/18 02:20 Neutrophils # 12.6 K/mcL (1.6-8.9) H 12/25/18 14:15 Nucleated RBCs/100 WBC 2.4 /100 WBC (0) H 12/25/18 14:15 PT 14.2 Seconds (9.4-12.1) H 12/26/18 18:10 APTT 38.6 Seconds (26.0-36.0) H 12/23/18 15:36 ABG pH 7.31 pH Units (7.32-7.45) L 12/25/18 15:03 ABG pO2 82 mmHg (85-104) L 12/25/18 15:03 ABG Base Excess -4 mEq/L (-2 to 3) L 12/25/18 15:03 Carbon Dioxide 22 mEq/L (23-29) L 12/28/18 04:35 BUN 69 mg/dL (8-23) H 12/28/18 04:35 Creatinine 3.14 mg/dL (0.60-1.20) H 12/28/18 04:35 Est GFR ( Amer) 18 (> 60) L 12/28/18 04:35 Est GFR (Non-Af Amer) 15 (> 60) L 12/28/18 04:35 Glucose 159 mg/dL (70-105) H 12/28/18 04:35 POC Glucose 157 mg/dL (70-99) H 12/27/18 15:57 Calculated Osmolality 315 (280-300) H 12/28/18 04:35 Uric Acid 11.8 mg/dL (2.3-7.6) H 12/28/18 04:35 Calcium 8.4 mg/dL (8.6-10.3) L 12/28/18 04:35 Phosphorus 6.2 mg/dL (2.7-4.5) H 12/28/18 04:35 AST 101 Units/L (13-39) H 12/27/18 02:20 ALT 255 Units/L (7-52) H 12/27/18 02:20 Lactate Dehydrogenase 380 Units/L (140-271) H 12/26/18 01:30 Troponin I 2.85 ng/mL (< 0.04) H* 12/25/18 14:15 B-Natriuretic Peptide 1332 pg/mL (Less than 100) H 12/23/18 15:36 Serum Total Protein 5.3 g/dL (6.4-8.9) L 12/27/18 02:20 Albumin 3.4 g/dL (3.5-5.7) L 12/27/18 02:20 Globulin 1.9 g/dL (2.4-3.5) L 12/27/18 02:20 25-OH Vitamin D Total 13 ng/mL (30-80) L 12/25/18 15:54 PTH Intact 285.6 pg/ml (10.0-65.0) H 12/25/18 15:54 Urine Clarity Turbid (Clear) A 12/26/18 17:25 Ur Specific [place] > 1.030 (1.010-1.025) H 12/26/18 17:25 Urine Protein 100 mg/dL (Neg-Trace) H 12/26/18 17:25 Urine Microscopic WBC 5-15 per hpf (0-3) H 12/26/18 17:25 Amorphous Sediment Many (Few) H 12/26/18 17:25 Complement C3 57 mg/dL (87-200) L 12/25/18 15:54 Complement C4 15 mg/dL (19-52) L 12/25/18 15:54 Hep Bs Antibody < 3.10 mIU/mL (10.00-) L 12/25/18 16:09 Exam: Vitals: Reviewed General: Obese, Alert and oriented. In mild respiratory distress on BiPAP Skin: Normal color, no rash, no lesions. HEENT: EOM, pupils equal, round and reactive. Cardiovascular: RRR, normal S1 & S2, no rubs, murmurs or gallops. Lungs: scattered b/l wheezes, rales on the left lower lobe, crackles. Abdomen: Obese, soft, non-tender, no rigidity. Extremities: bilateral edema, No deformity, tenderness, no joint swelling or clubbing. Neurological: No focal deficit Palliative Quality Palliative Quality: Screen for Code Status: Yes, Screen for Goals of Care: Yes, Screen for Pain: Yes, If Pain Regimen Started, Initiate Bowel Regimen: NA, Screen for Nausea/Vomitting: Yes Code Status: 12/23/18 20:11 Resuscitation Status: Active [RES] Stat Comment: Resuscitation Status: Full Code - Labs CBC & Chem 7: 12/27/18 02:20 12/28/18 04:35 Labs: Laboratory Results - last 24 hr 12/26/18 12/26/18 12/27/18 16:51 21:26 02:20 Heparin Anti-Xa, Unfract Sodium 137 Potassium 5.0 Chloride 105 Carbon Dioxide 23 BUN 60 H Creatinine 3.28 H Est GFR ( Amer) 17 L Est GFR (Non-Af Amer) 14 L BUN/Creatinine Ratio 18 Glucose 231 H POC Glucose 256 H 225 H Calculated Osmolality 308 H Uric Acid 12.3 H Calcium 8.5 L Phosphorus 6.2 H Magnesium Total Bilirubin 0.6 AST 101 H ALT 255 H Alkaline Phosphatase 79 Serum Total Protein 5.3 L Albumin 3.4 L Globulin 1.9 L Albumin/Globulin Ratio 1.8 12/27/18 12/27/18 12/27/18 07:24 09:30 11:41 Heparin Anti-Xa, Unfract 0.68 Sodium Potassium Chloride Carbon Dioxide BUN Creatinine Est GFR ( Amer) Est GFR (Non-Af Amer) BUN/Creatinine Ratio Glucose POC Glucose 255 H 221 H Calculated Osmolality Uric Acid Calcium Phosphorus Magnesium Total Bilirubin AST ALT Alkaline Phosphatase Serum Total Protein Albumin Globulin Albumin/Globulin Ratio 12/27/18 12/28/18 15:57 04:35 Heparin Anti-Xa, Unfract Sodium 141 Potassium 4.7 Chloride 107 Carbon Dioxide 22 L BUN 69 H Creatinine 3.14 H Est GFR ( Amer) 18 L Est GFR (Non-Af Amer) 15 L BUN/Creatinine Ratio 22 Glucose 159 H POC Glucose 157 H Calculated Osmolality 315 H Uric Acid 11.8 H Calcium 8.4 L Phosphorus 6.2 H Magnesium 2.4 Total Bilirubin AST ALT Alkaline Phosphatase Serum Total Protein Albumin Globulin Albumin/Globulin Ratio - ABG Interpretation ABG results: ABG ABG pH 7.31 pH Units (7.32-7.45) L 12/25/18 15:03 ABG pCO2 45 mmHg (35-45) 12/25/18 15:03 ABG pO2 82 mmHg (85-104) L 12/25/18 15:03 ABG O2 Saturation 95 % (95-98) 12/25/18 15:03 PT/INR, D-dimer PT 14.2 Seconds (9.4-12.1) H 12/26/18 18:10 Palliative Scale - Palliative Performance Scale How ambulatory is this patient?: Mainly in bed What is patient's level of activity and evidence of disease?: Unable to do any work, Extensive disease How much self-care assistance does patient require?: Considerable assistance required How much oral intake does the patient have?: Minimal to sips What is this patient's level of consciousness?: Full Palliative Performance Score: 40 % Consult Discharge Plan - Plan Referrals: Michel Giron MD [Primary Care Provider] -
[2018-12-28] MEDS: Aspirin 81 MG TAB.CHEW PO SCH (09:32)
[2018-12-28] MEDS: Insulin DETEMIR 100 UNIT/ML X5UNITS SQ SCH ×2 (11:15→21:52)
[2018-12-28 14:45] LABS: ANA IgG by ELISA NONE DETECTED (None Detected)
--- NOTE | 2018-12-28 16:40 | Internal Med Progress Note ---
Hospitalist Progress Note - Encounter Date of Encounter: 12/28/18 Time of Encounter: 08:00 - Subjective Interval History: Patient was seen and examined at bedside. All questions answered. Family including 2 daughters at bedside I discussed the plan of care with them. They understand the severity of their mother's condition however their mom would like to remain full code. I discussed that we will need to make a decision about how to move forward her care and they understand. she is not complaining of pain. she is inquiring about diet idiscussed that she is currently diet dependent. as per children their father was trached and PEGed and i discussed those options with them and patient - Exam Vitals: Temp Pulse Resp BP Pulse Ox 97.5 F L 83 28 101/71 91 12/28/18 15:00 12/28/18 15:00 12/28/18 15:37 12/28/18 15:00 12/28/18 15:37 Exam: Vitals: Reviewed General: Obese, Alert and oriented. In mild distress due to respiratory distress on BiPAP Skin: Normal color, no rash, no lesions. HEENT: EOM, pupils equal, round and reactive. Cardiovascular: RRR, normal S1 & S2, no rubs, murmurs or gallops. Lungs: scattered b/l wheezes, rales on the left lower lobe, crackles. Abdomen: Obese, soft, non-tender, no rigidity. Extremities: No deformity, no edema or tenderness, no joint swelling or clubbing. Neurological: No focal deficit - Assessment and Plan (1) Acute renal failure Current Visit: Yes Status: Acute Assessment and Plan: Multifactorial secondary to nephrotoxic medications along with IV contrast, renal infarction and dehydration Urine studies with UA and sodium consistent with pre-renal state, nephrology was consulted discussed case with Dr. Tillman- recommendations appreciated vascular surgery recommendations appreciated continue with heparin drip for now - will discuss with vascular surgery inregards to continuing the drip hematology oncology on board ( has renal infarct- will follow recs on ferry terminal agent anticoagulation) uric acid levels are trending down started her on gentle hydration with normal saline at 50 mL per hour as she has had no oral intake overnight/ remains bipap dependent and remains NPO along with worsening creatinine. I discussed the risks associated with this with the patient including possible intubation and she understands. CT abdomen and pelvis: Heterogeneous enhancement of the kidneys, especially on the right, concerning for renal infarction. 2. Delayed excretion of contrast from the kidneys, compatible with renal failure. (2) Acute and chronic respiratory failure with hypoxia Current Visit: Yes Status: Acute Assessment and Plan: Has bilateral pleural effusions but not large enough to aspirate- cannot diures as she has ARF. patient remains to be hypoxic. 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 Status post concurrent chemoradiotherapy to the lung/glottic larynx with weekly cisplatin/paclitaxel x6 doses completed 09/03/2018. Chemotherapy course was abbreviated secondary to patient noncompliance. palliative intent dose attenuated carboplatin, abraxane and pembrolizumab initiated 12/23/2018. oncology is on board will follow recommendations. as per documentation on 12/27- Currently she is not physically stable to undergo any cancer treatment (4) NSTEMI (non-ST elevated myocardial infarction) Current Visit: Yes Status: Acute Assessment and Plan: patient denies chest pain. elevated troponin levels 0.13 --> 1.28--> 3.81 in the setting of acute kidney injury and acute respiratory failure. EKG revealed sinus rhythm with intraventricular conduction delay. continue with BB ( holding ACEI secondary to MARIE), ASA and lipitor cardiology consulted and heparin drip was discontinued and recommended medical management as per cardiology " Do not recommend LHC at this time due to worsening renal function and inability to lay flat." (5) Elevated blood uric acid level Current Visit: Yes Status: Acute Assessment and Plan: ? secondary to ARF vs tumor lysis (discussed with hematology/oncology who feels as though this is less likely) Uric acid is 12.3 trended down to 11.8 Phosphorus 6.5 Magnesium is 2.2 LDH 380 PTH 285.6 Vitamin D level 13 nephrology ( discussed with nephrology) and hematology on board will follow recommendations. i discussed with both hematology and nephrology about need to start uric lowering medications- will follow recommendation. (6) Essential hypertension Current Visit: Yes Status: Chronic Assessment and Plan: BP controlled. Furosemide and lisinopril have been discontinue due to worsening kidney function. continue metoprolol 12.5mg BID will monitor BP and adjust medications accordingly. (7) T2DM (type 2 diabetes mellitus) Current Visit: Yes Status: Chronic Assessment and Plan: increased levemir 15 mg BID continue with sliding scale insulin and adjust as per finger sticks (8) (HFpEF) heart failure with preserved ejection fraction Current Visit: Yes Status: Acute Assessment and Plan: signs of volume overload on chest x-ray. continue fluid restrictive strategies to 1.5 litters a day, plus daily weight. strict intake and output. furosemide discontinued due to worsening kidney function nephrology consulted for assistance in diuresis. cardiology on board (9) Goals of care, counseling/discussion Current Visit: Yes Status: Acute Assessment and Plan: palliative recs appreciated I have discussed with the family and the patient at bedside that her prognosis remains poor due to multiple comorbidities currently she wishes to be full code (10) Vitamin D deficiency Current Visit: Yes Status: Acute Assessment and Plan: was started on ergocalciferol (11) DVT prophylaxis Current Visit: Yes Status: Acute Assessment and Plan: on heparin drip - Time Spent with Patient Total time spent is greater than 50% in coordination of care (as documented) at patient's floor/unit and/or counseling patient: Internal Medicine: Result - Labs CBC & Chem 7: 12/27/18 02:20 12/28/18 04:35 Labs: BMP 12/28/18 04:35 Sodium 141 Potassium 4.7 Chloride 107 Carbon Dioxide 22 L BUN 69 H Creatinine 3.14 H Glucose 159 H Calcium 8.4 L - ABG Interpretation ABG results: ABG ABG pH 7.31 pH Units (7.32-7.45) L 12/25/18 15:03 ABG pCO2 45 mmHg (35-45) 12/25/18 15:03 ABG pO2 82 mmHg (85-104) L 12/25/18 15:03 ABG O2 Saturation 95 % (95-98) 12/25/18 15:03 PT/INR, D-dimer PT 14.2 Seconds (9.4-12.1) H 12/26/18 18:10 Consult Discharge Plan - Plan Referrals: Michel Giron MD [Primary Care Provider] - (1) Acute renal failure Qualifiers: Acute renal failure type: unspecified Qualified Code(s): N17.9 - Acute kidney failure, unspecified (3) Squamous cell carcinoma of lung Qualifiers: Laterality: right Qualified Code(s): C34.91 - Malignant neoplasm of unspecified part of right bronchus or lung (7) T2DM (type 2 diabetes mellitus) Qualifiers: Diabetes mellitus senior care insulin use: without ferry terminal agent use Diabetes kwadwo itus complication status: without complication Qualified Code(s): E11.9 - Type 2 diabetes mellitus without complications (8) (HFpEF) heart failure with preserved ejection fraction Qualifiers: Heart failure chronicity: acute on chronic Qualified Code(s): I50.33 - Acute on chronic diastolic (congestive) heart failure
[2018-12-28 20:53] LABS: Kappa Qnt Free Light Chains 4.28 mg/dL (0.33-1.94); Lambda Qnt Free Light Chains 2.43 mg/dL (0.57-2.63)
--- NOTE | 2018-12-28 23:32 | Nephrology Progress Note ---
Date of Encounter: 12/28/18 Time of Encounter: 13:00 - Assessment and Plan (1) MARIE (acute kidney injury) Current Visit: Yes Status: Acute SCr slightly better at 3.14, GFR 15 with fluids, will continue Pt remains indecisive on if she would want [employer] when needed or not Continue to avoid nephrotoxins if possible UOP noted at 175cc documented for the past 24hrs Prognosis remains poor (2) Acute and chronic respiratory failure with hypoxia Current Visit: Yes Status: Acute Per primary team, currently on BiPAP still full code, palliative care on board (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 per oncology (4) NSTEMI (non-ST elevated myocardial infarction) Current Visit: Yes Status: Acute Cardio signed off (5) Squamous cell carcinoma of lung Current Visit: Yes Status: Chronic per oncology Qualifiers: Laterality: right Qualified Code(s): C34.91 - Malignant neoplasm of unspecified part of right bronchus or lung Subjective Principal diagnosis: SOB Interval history: Pt seen and examined remains on biPAP surrounded by family Objective - Vital Signs Vital signs: Vital Signs Temp Pulse Resp BP Pulse Ox 12/28/18 21:57 28 148/85 90 12/28/18 19:54 97.5 F L 87 19 148/85 88 12/28/18 15:37 28 91 12/28/18 15:00 97.5 F L 83 23 101/71 92 12/28/18 11:00 97.0 F L 80 26 127/81 91 12/28/18 10:39 30 90 12/28/18 07:29 25 91 12/28/18 06:29 97.8 F 77 21 131/90 92 12/28/18 03:59 97.7 F 81 18 129/71 90 12/28/18 03:43 20 89 12/28/18 00:08 20 91 Intake and Output 12/28/18 12/28/18 12/28/18 07:59 15:59 23:59 Intake Total 1350 / 1350 15 15 Output Total 0 / 0 0 / 0 Balance 1350 / 1350 15 / 15 Intake: IV Fluids 1350 / 1350 15 / 15 0.9 % Sodium Chloride 1,000 ML 1000 / 1000 @ 50 mls/hr IVC .Q20H [facility] Rx#: [id number] Heparin 25,000 UNIT/250 ML D5W 250 / 250 25,000 unit In 250 ml @ 14 UNIT /KG/HR 12.39 mls/hr IVC . [id number] [facility] Rx#:[id number] Zosyn 3.375 GM In 0.9 % Sodium 100 / 100 Chloride (Mini-Bag +) 100 ML @ 25 mls/hr IVPB Q12H [facility] Rx#: [id number] Oral 0 / 0 0 / 0 Output: Urine 0 / 0 0 / 0 Other: Meal Lunch Percent of Meal Consumed 0% Stool Size Small Stool Consistency soft Stool Color Black # Urine Diapers 1 1 # Bowel Movements 1 Weight 89.7 kg Blood Glucose* 191 177 172 Patient Weight 12/28/18 23:59 Weight 89.7 kg - General Appearance General appearance: Present: moderate distress (on bipAP) EENT: Present: ATNC, mucous membranes dry Neck: Present: no JVD, supple Additional Comments: decreased BS ant throughout Cardiology: Present: no edema, normal S1, normal S2 Gastrointestinal: Present: no tenderness, no guarding Integumentary: Present: warm and dry Neurologic: Present: no focal deficit Musculoskeletal: Present: no deformities Psychiatric: Present: mood/affect appropriate, cooperative - Lab 12/29/18 04:00 12/29/18 04:00 Most recent lab results ABG pH 7.31 pH Units (7.32-7.45) L 12/25/18 15:03 ABG pCO2 45 mmHg (35-45) 12/25/18 15:03 ABG pO2 82 mmHg (85-104) L 12/25/18 15:03 ABG HCO3 23 mEq/L (21-27) 12/25/18 15:03 ABG O2 Saturation 95 % (95-98) 12/25/18 15:03 Calcium 8.4 mg/dL (8.6-10.3) L 12/28/18 04:35 Phosphorus 6.2 mg/dL (2.7-4.5) H 12/28/18 04:35 Magnesium 2.4 mg/dL (1.6-2.6) 12/28/18 04:35 Urine Creatinine 131 mg/dL 12/26/18 17:25 Urine Sodium 17.2 mEq/L 12/26/18 17:25 Consult Discharge Plan - Plan Referrals: Michel Giron MD [Primary Care Provider] -
[2018-12-29] MEDS: Piperacillin/Tazobactam 3.375 GM in 0.9 % Sodium Chloride Mini Bag 100 ML IVPB SCH ×3 (00:56→23:11)
[2018-12-29] MEDS: 0.9 % Sodium Chloride 1,000 ML IVC SCH ×2 (03:10→23:10)
[2018-12-29] MEDS: Insulin LISPRO 300 UNITS/3 ML VIAL SQ SCH ×5 (03:35→23:42)
[2018-12-29] MEDS: MethylPREDNISolone 40 MG/ML VIAL IVP SCH ×2 (05:45→17:57)
[2018-12-29] MEDS: Heparin 25,000 UNIT/250 ML D5W 25,000 UNIT/250 ML IV.SOLN IVC SCH (05:46)
[2018-12-29 06:04] LABS: Hematocrit 40.9 % (35.3-44.9); Hemoglobin 12.7 g/dL (11.5-15.4); Mean Corpuscular HGB Conc 31.1 g/dL (31.6-35.5); Mean Corpuscular Hemoglobin 30.1 pg (28.0-33.3); Mean Corpuscular Volume 96.9 fL (83.0-100.0); Mean Platelet Volume 12.2 fL (9.4-12.4); Platelet Count 113 K/mcL (140-400); Red Blood Count 4.22 M/mcL (3.82-4.97); Red Cell Distribution Width 14.6 % (11.5-14.5)
[2018-12-29 06:25] LABS: Calcium 8.8 mg/dL (8.6-10.3)
[2018-12-29 07:28] LABS: ABG Base Excess -7 mEq/L (-2 to 3); ABG HCO3 22 mEq/L (21-27); ABG Oxygen Saturation 88 % (95-98); ABG PCO2 58 mmHg (35-45); ABG PH 7.19 pH Units (7.32-7.45); ABG PO2 69 mmHg (85-104); ABG TCO2 24 mEq/L (20-26)
[2018-12-29] MEDS: Aspirin 81 MG TAB.CHEW PO SCH (08:42)
[2018-12-29] MEDS: Insulin DETEMIR 100 UNIT/ML X5UNITS SQ SCH ×2 (08:45→21:04)
[2018-12-29] MEDS: Ipratropium/Albuterol Neb 3 ML IH PRN ×3 (09:33→15:55)
[2018-12-29] MEDS: Budesonide/Formoterol 80/4.5 MDI IH SCH ×2 (09:33→21:45)
--- NOTE | 2018-12-29 10:45 | Internal Med Progress Note ---
Hospitalist Progress Note - Encounter Date of Encounter: 12/29/18 Time of Encounter: 07:30 - Subjective Interval History: Patient was seen and examined at bedside. More tachypneic, daughter at bedside. I discussed the ABG findings in the chest x-ray finding and that she is close to being intubated as she is using accessory muscles. She continued to be BiPAP dependent yesterday. I have had multiple discussions with the patient and the family in regards to this. I discussed that critical care has been consulted as she is close to being intubated. Critical care attending at bedside to be both discussed with the patient and the family and she is in agreement with intubation understanding her prognosis and multiple comorbidities. She will be transferred to ICU and under critical care team for further management and monitoring I called son Ramesh and discussed with him also and he is in agreement. Daughter at bedside is also in agreement along with patient. - Exam Vitals: Temp Pulse Resp BP Pulse Ox 97.4 F L 100 21 133/88 93 12/29/18 06:56 12/29/18 06:56 12/29/18 09:33 12/29/18 09:33 12/29/18 09:33 Exam: Vitals: Reviewed General: Obese, Alert and oriented. In moderate distress due to respiratory distress on BiPAP Skin: Normal color, no rash, no lesions. HEENT: EOM, pupils equal, round and reactive. Cardiovascular: Tachycardic S1 & S2, no rubs, murmurs or gallops. Lungs: scattered b/l wheezes, rales on the left lower lobe, crackles throughout the posterior lung montero, using accessory muscles. Abdomen: Obese, soft, non-tender, no rigidity. Extremities: No deformity, no edema or tenderness, no joint swelling or clubbing. Neurological: No focal deficit, follows commands skin: multiple ecchymosis on bilateral upper extremities - Assessment and Plan (1) Acute and chronic respiratory failure with hypoxia Current Visit: Yes Status: Acute Assessment and Plan: Has bilateral pleural effusions but not large enough to aspirate- cannot diures as she has ARF. patient remains to be hypoxic. And Bipap dependent On 12/29 ABG with worsening acidosis, hypercapnia and hypoxemia- patient is becoming more fatigued and using accessory muscles. Critical care was consulted and she will be transferred to the ICU - low threshold for intubation This was discussed with the patient and the family and they are all in agreement. NPO methyl-prednisolone 40mg/IV BID on symbicort On bronchodilators scheduled continue empiric antibiotics with piperacillin/tazobactam 3.375mg/IV Q8HRs (2) Acute renal failure Current Visit: Yes Status: Acute Assessment and Plan: Multifactorial secondary to nephrotoxic medications along with IV contrast, luisito al infarction and dehydration Urine studies with UA and sodium consistent with pre-renal state, nephrology was consulted discussed case with Dr. Tillman- recommendations appreciated vascular surgery recommendations appreciated - continue with heparin drip for now - I discussed this with the surgeon on-call on 12/28 hematology oncology on board ( has renal infarct- will follow recs on jail anticoagulation) uric acid levels are trending down started her on gentle hydration with normal saline at 50 mL per hour as she has had no oral intake/ remains bipap dependent and remains NPO along with worsening creatinine. I discussed the risks associated with this with the patient including possible intubation and she understands. CT abdomen and pelvis: Heterogeneous enhancement of the kidneys, especially on the right, concerning for renal infarction. 2. Delayed excretion of contrast from the kidneys, compatible with renal failure. 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 Status post concurrent chemoradiotherapy to the lung/glottic larynx with weekly cisplatin/paclitaxel x6 doses completed 09/03/2018. Chemotherapy course was abbreviated secondary to patient noncompliance. palliative intent dose attenuated carboplatin, abraxane and pembrolizumab initiated 12/23/2018. oncology is on board will follow recommendations. as per documentation on 12/27- Currently she is not physically stable to undergo any cancer treatment (5) NSTEMI (non-ST elevated myocardial infarction) Current Visit: Yes Status: Acute Assessment and Plan: patient denies chest pain. elevated troponin levels 0.13 --> 1.28--> 3.81 in the setting of acute kidney injury and acute respiratory failure. EKG revealed sinus rhythm with intraventricular conduction delay. continue with BB ( holding ACEI secondary to MARIE), ASA and lipitor On heparin drip for renal infarct as per cardiology " Do not recommend LHC at this time due to worsening renal fu nction and inability to lay flat." (6) Elevated blood uric acid level Current Visit: Yes Status: Acute Assessment and Plan: ? secondary to ARF vs tumor lysis (discussed with hematology/oncology who feels as though this is less likely) Uric acid is 12.3 trended down to 11.8 Phosphorus 6.5 Magnesium is 2.2 LDH 380 PTH 285.6 Vitamin D level 13 nephrology ( discussed with nephrology) and hematology on board will follow recommendations. i discussed with both hematology and nephrology about need to start uric lowering medications- will follow recommendation. (7) Essential hypertension Current Visit: Yes Status: Chronic Assessment and Plan: BP controlled. Furosemide and lisinopril have been discontinue due to worsening kidney function. continue metoprolol 12.5mg BID will monitor BP and adjust medications accordingly. (8) T2DM (type 2 diabetes mellitus) Current Visit: Yes Status: Chronic Assessment and Plan: increased levemir 15 mg BID continue with sliding scale insulin and adjust as per finger sticks (9) (HFpEF) heart failure with preserved ejection fraction Current Visit: Yes Status: Acute Assessment and Plan: signs of volume overload on chest x-ray. continue fluid restrictive strategies to 1.5 litters a day, plus daily weight. strict intake and output. furosemide discontinued due to worsening kidney function nephrology consulted for assistance in diuresis. cardiology on board (10) Goals of care, counseling/discussion Current Visit: Yes Status: Acute Assessment and Plan: palliative recs appreciated I have discussed with the family and the patient at bedside that her prognosis remains poor due to multi organ damage. family at bedside and they understand currently she wishes to be full code will be transferred to ICU for further monitoring and management (11) Vitamin D deficiency Current Visit: Yes Status: Acute Assessment and Plan: was started on ergocalciferol (12) DVT prophylaxis Current Visit: Yes Status: Acute Assessment and Plan: on heparin drip - Time Spent with Patient Total time spent is greater than 50% in coordination of care (as documented) at patient's floor/unit and/or counseling patient: Internal Medicine: Result - Labs CBC & Chem 7: 12/29/18 04:00 12/29/18 04:00 Labs: Short CBC 12/29/18 Range/Units 04:00 WBC 14.8 H D (4.3-11.1) K/mcL Hgb 12.7 (11.5-15.4) g/dL Hct 40.9 (35.3-44.9) % Plt Count 113 L (140-400) K/mcL BMP 12/29/18 04:00 Sodium 141 Potassium 5.0 Chloride 107 Carbon Dioxide 24 BUN 86 H Creatinine 3.23 H Glucose 209 H Calcium 8.8 Cardiac Enzymes 12/29/18 Range/Units 00:20 Troponin I 0.66 H* (< 0.04) ng/mL - ABG Interpretation ABG results: ABG ABG pH 7.19 pH Units (7.32-7.45) L* 12/29/18 07:25 ABG pCO2 58 mmHg (35-45) H 12/29/18 07:25 ABG pO2 69 mmHg (85-104) L 12/29/18 07:25 ABG O2 Saturation 88 % (95-98) L 12/29/18 07:25 PT/INR, D-dimer PT 14.2 Seconds (9.4-12.1) H 12/26/18 18:10 - Impressions Impressions Chest X-Ray 12/29/18 07:10 IMPRESSION: Stable mild cardiomegaly. Known lung mass at the right lung apex. Mild pulmonary vascular congestion. Atelectasis at the left lung base. D/ / Alfredo Huff MD / Alfredo Huff MD Interpreting Provider: Alfredo Huff MD Consult Discharge Plan - Plan Referrals: Michel Giron MD [Primary Care Provider] - (2) Acute renal failure Qualifiers: Acute renal failure type: unspecified Qualified Code(s): N17.9 - Acute kidney failure, unspecified (3) Sepsis Qualifiers: Sepsis type: sepsis due to unspecified organism Qualified Code(s): A41.9 - Sepsis, unspecified organism (4) Squamous cell carcinoma of lung Qualifiers: Laterality: right Qualified Code(s): C34.91 - Malignant neoplasm of unspecified part of right bronchus or lung (8) T2DM (type 2 diabetes mellitus) Qualifiers: Diabetes mellitus intermediate frame tender insulin use: without intermediate frame tender use Diabetes mellitus complication status: without complication Qualified Code(s): E11.9 - Type 2 diabetes mellitus without complications (9) (HFpEF) heart failure with preserved ejection fraction Qualifiers: Heart failure chronicity: acute on chronic Qualified Code(s): I50.33 - Acute on chronic diastolic (congestive) heart failure
[2018-12-29 11:02] LABS: Myeloperoxidase Ab 0 AU/mL (0-19); Serine Protease-3 Antibody 0 AU/mL (0-19)
--- NOTE | 2018-12-29 12:41 | Palliative Progress Note ---
Date of Encounter: 12/29/18 Time of Encounter: 11:00 - Assessment and plan (1) Goals of care, counseling/discussion Current Visit: Yes Status: Acute Assessment and plan: Met with patient and family present at beside. Patient able to participate in conversation. Daughter reported patient is being transferred to ICU for ventilation later today. Inquired if patient understand what that meant, patient nodded yes. Ensured understanding by explaning ET insertion process and inability to talk with tube in mouth. Explained necessity of patient sharing her wishes at this time, so we can document and follow her wishes. Patient in agreement. Daughter remained unreasonable and requested all of her organs be transferred to her mother, because she would rather give up her life than live without her mother. Requested family to explain results of meetings with all physicians. Morena, patients sister took lead, explained patient has cancer and is dying. Explained that also had a heart attack. Patient can't eat as she can't come off BiPAP. Family understands why PEG tube is not an option at this time as patient would have to be under sedation for insertion. Inquired with patient if she is ok with Ventilation. Agreed. 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 She explained for short term, yes but for detention it would be up to her kids. She also shared she would not want to life detention in [facility]. Inquired CODE STATUS wishes regarding CPR. Explained when it is time for use of CPR and how it is performed, as well as sharing the risks. Patient's daughter immediately jumped up and started screaming that everything better be done if her mom's heart stops or she will go crazy. Explained appreciate her opinion, but also feel that it is patient's wishes should be followed. Patient's expressed wishes that if her heart stops, patient would not want CPR, but wants everything done until then. Changed CODE STATUS to DNRCCA. State form completed and signed by patient. Updated Primary RN. All family at bedside in agreement, except daughter, whom states she cannot lose her mother as she is the only person that she is close to. Explained that daughter had her son and siblings. Daughter states, I don't have my son, she does as she raised him. He already hates me. I don't want to get close to him as he has Bipolar and ADHD, he will blame me when she dies. Encouraged reaching out to family and friends. Offered Key Attendant services, patient's daughter refused. Daughter then reports she will follow her mom's wishes, but isn't happy about it and won't be able to control her anger when something does happen to her mother. (2) MARIE (acute kidney injury) Current Visit: Yes Status: Acute Assessment and plan: Creatinine 3.23, worse than yesterday. (3) Acute and chronic respiratory failure with hypoxia Current Visit: Yes Status: Acute Assessment and plan: ABG worse than previous. Patient ok with inbutation. On BiPAP at this time. (4) COPD (chronic obstructive pulmonary disease) Current Visit: Yes Status: Chronic Qualifiers: COPD type: emphysema Emphysema type: centrilobular Qualified Code(s): J43.2 - Centrilobular emphysema (5) Non-small cell lung cancer Current Visit: No Status: Chronic Qualifiers: Laterality: unspecified laterality Qualified Code(s): C34.90 - Malignant neoplasm of unspecified part of unspecified bronchus or lung (6) 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 (7) NSTEMI (non-ST elevated myocardial infarction) Current Visit: Yes Status: Acute - Time Spent With Patient Total time spent is greater than 50% in coordination of care (as documented) at patient's floor/unit and/or counseling patient: Greater than 35 minutes - Subjective Interval history: Patient awake, alert, and able to participate in conversation upon arrival for assessment. Patient reports feeling bloated. Patient denies pain, nausea and vomiting. Patient admits to some anxiety and is tearful. Patient's daughter Sharla, Sister Morena, Granddaughter Chidi, Niece in law Mena, and Nephew Michael present at bedside. - Constitutional Vitals: Abnormal lab results WBC 14.8 K/mcL (4.3-11.1) H D 12/29/18 04:00 MCHC 31.1 g/dL (31.6-35.5) L 12/29/18 04:00 RDW 14.6 % (11.5-14.5) H 12/29/18 04:00 Plt Count 113 K/mcL (140-400) L 12/29/18 04:00 Neutrophils # 12.6 K/mcL (1.6-8.9) H 12/25/18 14:15 Nucleated RBCs/100 WBC 2.4 /100 WBC (0) H 12/25/18 14:15 PT 14.2 Seconds (9.4-12.1) H 12/26/18 18:10 APTT 38.6 Seconds (26.0-36.0) H 12/23/18 15:36 ABG pH 7.19 pH Units (7.32-7.45) L* 12/29/18 07:25 ABG pCO2 58 mmHg (35-45) H 12/29/18 07:25 ABG pO2 69 mmHg (85-104) L 12/29/18 07:25 ABG O2 Saturation 88 % (95-98) L 12/29/18 07:25 ABG Base Excess -7 mEq/L (-2 to 3) L 12/29/18 07:25 BUN 86 mg/dL (8-23) H 12/29/18 04:00 Creatinine 3.23 mg/dL (0.60-1.20) H 12/29/18 04:00 Est GFR ( Amer) 18 (> 60) L 12/29/18 04:00 Est GFR (Non-Af Amer) 15 (> 60) L 12/29/18 04:00 BUN/Creatinine Ratio 27 (6-26) H 12/29/18 04:00 Glucose 209 mg/dL (70-105) H 12/29/18 04:00 POC Glucose 222 mg/dL (70-99) H 12/29/18 12:32 Calculated Osmolality 324 (280-300) H 12/29/18 04:00 Uric Acid 11.8 mg/dL (2.3-7.6) H 12/28/18 04:35 Phosphorus 6.2 mg/dL (2.7-4.5) H 12/28/18 04:35 AST 101 Units/L (13-39) H 12/27/18 02:20 ALT 255 Units/L (7-52) H 12/27/18 02:20 Lactate Dehydrogenase 380 Units/L (140-271) H 12/26/18 01:30 Troponin I 0.66 ng/mL (< 0.04) H* 03/18/19 00:20 B-Natriuretic Peptide 1332 pg/mL (Less than 100) H 12/23/18 15:36 Serum Total Protein 5.3 g/dL (6.4-8.9) L 12/27/18 02:20 Albumin 3.4 g/dL (3.5-5.7) L 12/27/18 02:20 Globulin 1.9 g/dL (2.4-3.5) L 12/27/18 02:20 25-OH Vitamin D Total 13 ng/mL (30-80) L 12/25/18 15:54 PTH Intact 285.6 pg/ml (10.0-65.0) H 12/25/18 15:54 Urine Clarity Turbid (Clear) A 12/26/18 17:25 Ur Specific [place] > 1.030 (1.010-1.025) H 12/26/18 17:25 Urine Protein 100 mg/dL (Neg-Trace) H 12/26/18 17:25 Urine Microscopic WBC 5-15 per hpf (0-3) H 12/26/18 17:25 Amorphous Sediment Many (Few) H 12/26/18 17:25 Complement C3 57 mg/dL (87-200) L 12/25/18 15:54 Complement C4 15 mg/dL (19-52) L 12/25/18 15:54 Free [place] LC, Quant 4.28 mg/dL (0.33-1.94) H 12/25/18 16:09 Free [place]/Lambda Ratio 1.76 (0.26-1.65) H 12/25/18 16:09 Hep Bs Antibody < 3.10 mIU/mL (10.00-) L 12/25/18 16:09 General appearance: Present: cooperative, mild distress - Head Head exam: Present: atraumatic, normal inspection - Eye Eye exam: Present: EOMI, periorbital swelling, conjuntiva pink. Absent: normal appearance, periorbital tenderness Pupils: Present: normal accommodation, PERRL - ENT ENT exam: Present: mucous membranes dry, normal external ear exam - Neck Neck exam: Present: full ROM, normal inspection - Respiratory Respiratory exam: Present: accessory muscle use, decreased breath sounds, rhonchi. Absent: tachypnea - Cardiovascular Cardiovascular exam: Present: irregular rhythm - GI/Abdominal GI/Abdominal exam: Present: normal bowel sounds, soft. Absent: tenderness - Rectal Rectal exam: Present: deferred - Expanded Exam Female exam: Present: deferred - Extremities Exam Extremities exam: Present: calf tenderness (right more than left.), pedal edema. Absent: normal inspection - Back Exam Back exam: Present: normal inspection - Neurological Exam Neurological exam: Present: alert, strengths equal and symetr throughout. Absent: altered - Psychiatric Psychiatric exam: Present: normal affect, normal mood - Skin Skin exam: Present: dry, intact, normal color, warm Palliative Quality Palliative Quality: Screen for Code Status: Yes, Screen for Goals of Care: Yes, Screen for Pain: Yes, If Pain Regimen Started, Initiate Bowel Regimen: NA, Sc reen for Nausea/Vomitting: Yes Code Status: 12/23/18 20:11 Resuscitation Status: Active [RES] Stat Comment: Resuscitation Status: Full Code 12/29/18 11:55 DNR [Resuscitation Status: Active] [RES] Routine Comment: State form completed; patient signed. Resuscitation Status: DNR-Comfort Care-Arrest - Labs CBC & Chem 7: 12/29/18 04:00 12/29/18 04:00 Labs: Laboratory Results - last 24 hr 12/25/18 12/25/18 12/26/18 16:09 16:09 01:30 WBC RBC Hgb Hct MCV MCH MCHC RDW Plt Count MPV Heparin Anti-Xa, Unfract Sample Site ABG pH ABG pCO2 ABG pO2 ABG HCO3 ABG Total CO2 ABG O2 Saturation ABG Base Excess Alok Test O2 Delivery Device Inspired O2 Sodium Potassium Chloride Carbon Dioxide BUN Creatinine Est GFR ( Amer) Est GFR (Non-Af Amer) BUN/Creatinine Ratio Glucose POC Glucose Calculated Osmolality Lactic Acid Calcium Troponin I KARLY Screen NONE DETECTED Myeloperoxidase Ab 0 Serine Protease 3 Ab 0 Free [place] LC, Quant 4.28 H Free [place]ambda LC, Quant 2.43 Free [place]/Lambda Ratio 1.76 H L.pneumophila IgG Grp 1 <1:128 Specimen Rejected 12/28/18 12/29/18 12/29/18 20:02 00:20 04:00 WBC 14.8 H D RBC 4.22 Hgb 12.7 Hct 40.9 MCV 96.9 MCH 30.1 MCHC 31.1 L RDW 14.6 H Plt Count 113 L MPV 12.2 Heparin Anti-Xa, Unfract Sample Site ABG pH ABG pCO2 ABG pO2 ABG HCO3 ABG Total CO2 ABG O2 Saturation ABG Base Excess Alok Test O2 Delivery Device Inspired O2 Sodium Potassium Chloride Carbon Dioxide BUN Creatinine Est GFR ( Amer) Est GFR (Non-Af Amer) BUN/Creatinine Ratio Glucose POC Glucose 172 H Calculated Osmolality Lactic Acid Calcium Troponin I 0.66 H* KARLY Screen Myeloperoxidase Ab Serine Protease 3 Ab Free [place] LC, Quant Free [place]ambda LC, Quant Free [place]/Lambda Ratio L.pneumophila IgG Grp 1 Specimen Rejected 12/29/18 12/29/18 12/29/18 04:00 06:30 06:36 WBC RBC Hgb Hct MCV MCH MCHC RDW Plt Count MPV Heparin Anti-Xa, Unfract Sample Site ABG pH ABG pCO2 ABG pO2 ABG HCO3 ABG Total CO2 ABG O2 Saturation ABG Base Excess Alok Test O2 Delivery Device Inspired O2 Sodium 141 Potassium 5.0 Chloride 107 Carbon Dioxide 24 BUN 86 H Creatinine 3.23 H Est GFR ( Amer) 18 L Est GFR (Non-Af Amer) 15 L BUN/Creatinine Ratio 27 H Glucose 209 H POC Glucose 190 H Calculated Osmolality 324 H Lactic Acid Calcium 8.8 Troponin I KARLY Screen Myeloperoxidase Ab Serine Protease 3 Ab Free [place] LC, Quant Free [place]ambda LC, Quant Free [place]/Lambda Ratio L.pneumophila IgG Grp 1 Specimen Rejected Container 12/29/18 12/29/18 12/29/18 06:50 07:25 09:15 WBC RBC Hgb Hct MCV MCH MCHC RDW Plt Count MPV Heparin Anti-Xa, Unfract 0.63 Sample Site R Radial ABG pH 7.19 L* ABG pCO2 58 H ABG pO2 69 L ABG HCO3 22 ABG Total CO2 24 ABG O2 Saturation 88 L ABG Base Excess -7 L Alok Test Positive O2 Delivery Device BiPAP Inspired O2 95.0 Sodium Potassium Chloride Carbon Dioxide BUN Creatinine Est GFR ( Amer) Est GFR (Non-Af Amer) BUN/Creatinine Ratio Glucose POC Glucose Calculated Osmolality Lactic Acid 2.8 H Calcium Troponin I KARLY Screen Myeloperoxidase Ab Serine Protease 3 Ab Free [place] LC, Quant Free Lambda LC, Quant Free [place]/Lambda Ratio L.pneumophila IgG Grp 1 Specimen Rejected 12/29/18 12/29/18 10:20 12:32 WBC RBC Hgb Hct MCV MCH MCHC RDW Plt Count MPV Heparin Anti-Xa, Unfract Sample Site ABG pH ABG pCO2 ABG pO2 ABG HCO3 ABG Total CO2 ABG O2 Saturation ABG Base Excess Alok Test O2 Delivery Device Inspired O2 Sodium Potassium Chloride Carbon Dioxide BUN Creatinine Est GFR ( Amer) Est GFR (Non-Af Amer) BUN/Creatinine Ratio Glucose POC Glucose 222 H Calculated Osmolality Lactic Acid 1.6 Calcium Troponin I KARLY Screen Myeloperoxidase Ab Serine Protease 3 Ab Free [place] LC, Quant Free [place]ambda LC, Quant Free [place]/Lambda Ratio L.pneumophila IgG Grp 1 Specimen Rejected - Impressions Impressions Chest X-Ray 12/29/18 07:10 IMPRESSION: Stable mild cardiomegaly. Known lung mass at the right lung apex. Mild pulmonary vascular congestion. Atelectasis at the left lung base. D/ / Alfredo Huff MD / Alfredo Huff MD Interpreting Provider: Alfredo Huff MD - ABG Interpretation ABG results: ABG ABG pH 7.19 pH Units (7.32-7.45) L* 12/29/18 07:25 ABG pCO2 58 mmHg (35-45) H 12/29/18 07:25 ABG pO2 69 mmHg (85-104) L 12/29/18 07:25 ABG O2 Saturation 88 % (95-98) L 12/29/18 07:25 PT/INR, D-dimer PT 14.2 Seconds (9.4-12.1) H 12/26/18 18:10 Palliative Scale - Palliative Performance Scale How ambulatory is this patient?: Mainly in bed What is patient's level of activity and evidence of disease?: Unable to do any work, Extensive disease How much self-care assistance does patient require?: Considerable assistance required How much oral intake does the patient have?: Minimal to sips What is this patient's level of consciousness?: Full Palliative Performance Score: 40 % Consult Discharge Plan - Plan Referrals: Michel Giron MD [Primary Care Provider] -
--- NOTE | 2018-12-29 12:57 | Pulmonology Consult Note ---
Date of Encounter: 12/29/18 Time of Encounter: 12:30 History of Present Illness Consult date: 12/29/18 Requesting physician: Ok Morales Reason for consult: dyspnea, hypoxemia, abnormal CXR/CT Chief complaint: Severe SOB, Past Med Surg Social Fam HX - Past Medical History Medical history: cancer, diabetes, hypertension, other Additional medical history: Lung/Throat CA Psychiatric history: no psych history - Past Surgical History Surgical History: appendectomy, cataract Additional surgical history: cardiac cath, tubal ligation - Social History Smoking Status: 2nd Hand Smoke Exposure Smokeless Tobacco Status: No Alcohol use: none Drug use: none - Family History Mother Adopted: [place]: Adriana Living Status: Age at : 57 Hx Family Cardiac Disorders: Yes Hx Family Respiratory Disorders: No Hx Family Cancer: Yes Hx Family GI Disorders: No Hx Family Genitourinary Disorders: No Hx Family Endocrine Disorder: Yes Hx Family Musculoskeletal Disorders: No Hx Family Neuromuscular Disorders: No Hx Family Neurologic Disorders: No Hx Family Autoimmune Disorders: No Medications and Allergies Albuterol Sulfate [Ventolin Hfa] 2 puff IH Q4H PRN 10/02/17 [History] Aspirin 325 mg PO DAILY 10/02/17 [History] Furosemide [Lasix] 20 mg PO TID 10/02/17 [History] Ipratropium/Albuterol Neb [Duoneb] 3 ml IH Q6H PRN 10/02/17 [History] Oxygen 3 l NS AD 10/02/17 [History] Potassium Chloride [Klor-Con 10] 5 meq PO DAILY 10/02/17 [History] Fluticasone/Salmeterol [Advair 250-50 Diskus] 1 puff IH BID 08/08/18 [History] Rivaroxaban [Xarelto] 20 mg PO DAILY #60 tablet 08/12/18 [Rx] Levalbuterol HCl [Xopenex] 1.25 mg IH Q6H 09/25/18 [History] Metoprolol Succinate [Toprol Xl] 25 mg PO DAILY 09/25/18 [History] Insulin Glargine,Hum.rec.anlog [Basaglar Kwikpen U-100] 5 unit SQ HS 11/11/18 [History] Promethazine [Phenergan] 25 mg PO Q6HR PRN #30 tablet 12/23/18 [Rx] Atorvastatin [Lipitor] 40 mg PO HS 12/25/18 [History] glipiZIDE [Glipizide ER] 10 mg PO DAILY 12/25/18 [History] Allergy/AdvReac Type Severity Reaction Status Date / Time Penicillins [PCN] Allergy Mild Hives Verified 12/04/18 13:41 All Systems: The remainder of the systems were reviewed and are negative Physical Examination Vital Signs: Vital Signs, Last 4 Hours Resp BP Pulse Ox 12/29/18 12:33 28 110/55 97 12/29/18 12:24 35 97 12/29/18 09:33 21 133/88 93 Results - Laboratory Findings CBC and BMP: 12/29/18 04:00 12/29/18 04:00 ABG ABG pH 7.19 pH Units (7.32-7.45) L* 12/29/18 07:25 ABG pCO2 58 mmHg (35-45) H 12/29/18 07:25 ABG pO2 69 mmHg (85-104) L 12/29/18 07:25 ABG O2 Saturation 88 % (95-98) L 12/29/18 07:25 PT/INR, D-dimer PT 14.2 Seconds (9.4-12.1) H 12/26/18 18:10 Abnormal lab findings: Abnormal lab results WBC 14.8 K/mcL (4.3-11.1) H D 12/29/18 04:00 MCHC 31.1 g/dL (31.6-35.5) L 12/29/18 04:00 RDW 14.6 % (11.5-14.5) H 12/29/18 04:00 Plt Count 113 K/mcL (140-400) L 12/29/18 04:00 Neutrophils # 12.6 K/mcL (1.6-8.9) H 12/25/18 14:15 Nucleated RBCs/100 WBC 2.4 /100 WBC (0) H 12/25/18 14:15 PT 14.2 Seconds (9.4-12.1) H 12/26/18 18:10 APTT 38.6 Seconds (26.0-36.0) H 12/23/18 15:36 ABG pH 7.19 pH Units (7.32-7.45) L* 12/29/18 07:25 ABG pCO2 58 mmHg (35-45) H 12/29/18 07:25 ABG pO2 69 mmHg (85-104) L 12/29/18 07:25 ABG O2 Saturation 88 % (95-98) L 12/29/18 07:25 ABG Base Excess -7 mEq/L (-2 to 3) L 12/29/18 07:25 BUN 86 mg/dL (8-23) H 12/29/18 04:00 Creatinine 3.23 mg/dL (0.60-1.20) H 12/29/18 04:00 Est GFR ( Amer) 18 (> 60) L 12/29/18 04:00 Est GFR (Non-Af Amer) 15 (> 60) L 12/29/18 04:00 BUN/Creatinine Ratio 27 (6-26) H 12/29/18 04:00 Glucose 209 mg/dL (70-105) H 12/29/18 04:00 POC Glucose 222 mg/dL (70-99) H 12/29/18 12:32 Calculated Osmolality 324 (280-300) H 12/29/18 04:00 Uric Acid 11.8 mg/dL (2.3-7.6) H 12/28/18 04:35 Phosphorus 6.2 mg/dL (2.7-4.5) H 12/28/18 04:35 AST 101 Units/L (13-39) H 12/27/18 02:20 ALT 255 Units/L (7-52) H 12/27/18 02:20 Lactate Dehydrogenase 380 Units/L (140-271) H 12/26/18 01:30 Troponin I 0.66 ng/mL (< 0.04) H* 12/29/18 00:20 B-Natriuretic Peptide 1332 pg/mL (Less than 100) H 12/23/18 15:36 Serum Total Protein 5.3 g/dL (6.4-8.9) L 12/27/18 02:20 Albumin 3.4 g/dL (3.5-5.7) L 12/27/18 02:20 Globulin 1.9 g/dL (2.4-3.5) L 12/27/18 02:20 25-OH Vitamin D Total 13 ng/mL (30-80) L 12/25/18 15:54 PTH Intact 285.6 pg/ml (10.0-65.0) H 12/25/18 15:54 Urine Clarity Turbid (Clear) A 12/26/18 17:25 Ur Specific [place] > 1.030 (1.010-1.025) H 12/26/18 17:25 Urine Protein 100 mg/dL (Neg-Trace) H 12/26/18 17:25 Urine Microscopic WBC 5-15 per hpf (0-3) H 12/26/18 17:25 Amorphous Sediment Many (Few) H 12/26/18 17:25 Complement C3 57 mg/dL (87-200) L 12/25/18 15:54 Complement C4 15 mg/dL (19-52) L 12/25/18 15:54 Free Ila LC, Quant 4.28 mg/dL (0.33-1.94) H 12/25/18 16:09 Free Ila/Lambda Ratio 1.76 (0.26-1.65) H 12/25/18 16:09 Hep Bs Antibody < 3.10 mIU/mL (10.00-) L 12/25/18 16:09 - Microbiology Findings Microbiology Findings: Microbiology, Last 48 Hours 12/29/18 11:11 Blood Culture - Preliminary Peripheral Venipuncture Culture is incubating and being continuously monitored for growth. Final report to follow. 12/29/18 11:11 Blood Culture - Preliminary Peripheral Venipuncture Culture is incubating and being continuously monitored for growth. Final report to follow. 12/23/18 19:16 Blood Culture - Final Peripheral Venipuncture No growth. Final report. 12/23/18 19:16 Blood Culture - Final Peripheral Venipuncture No growth. Final report. - Clinical Findings Intake & Output: Intake & Output 12/28/18 12/29/18 12/29/18 23:59 07:59 15:59 Intake Total 100 / 100 1335 / 1335 Balance 100 / 100 1335 / 1335 Weight 91 kg Consult Discharge Plan - Plan Referrals: Michel Giron MD [Primary Care Provider] -
--- NOTE | 2018-12-29 13:32 | Pulmonology Progress Note ---
<Ok Morales M - Last Filed: 12/29/18 14:32> Date of Encounter: 12/29/18 Objective PUL Vital signs: Last Vital Signs Temp 97.7 F 12/29/18 12:56 Pulse 88 12/29/18 12:56 Resp 31 12/29/18 12:56 BP 90/59 12/29/18 12:56 Pulse Ox 95 12/29/18 13:32 Results - Laboratory Findings CBC and BMP: 12/29/18 04:00 12/29/18 04:00 ABG ABG pH 7.19 pH Units (7.32-7.45) L* 12/29/18 07:25 ABG pCO2 58 mmHg (35-45) H 12/29/18 07:25 ABG pO2 69 mmHg (85-104) L 12/29/18 07:25 ABG O2 Saturation 88 % (95-98) L 12/29/18 07:25 PT/INR, D-dimer PT 14.2 Seconds (9.4-12.1) H 12/26/18 18:10 Abnormal lab findings: Abnormal lab results WBC 14.8 K/mcL (4.3-11.1) H D 12/29/18 04:00 MCHC 31.1 g/dL (31.6-35.5) L 12/29/18 04:00 RDW 14.6 % (11.5-14.5) H 12/29/18 04:00 Plt Count 113 K/mcL (140-400) L 12/29/18 04:00 Neutrophils # 12.6 K/mcL (1.6-8.9) H 12/25/18 14:15 Nucleated RBCs/100 WBC 2.4 /100 WBC (0) H 12/25/18 14:15 PT 14.2 Seconds (9.4-12.1) H 12/26/18 18:10 APTT 38.6 Seconds (26.0-36.0) H 12/23/18 15:36 ABG pH 7.19 pH Units (7.32-7.45) L* 12/29/18 07:25 ABG pCO2 58 mmHg (35-45) H 12/29/18 07:25 ABG pO2 69 mmHg (85-104) L 12/29/18 07:25 ABG O2 Saturation 88 % (95-98) L 12/29/18 07:25 ABG Base Excess -7 mEq/L (-2 to 3) L 12/29/18 07:25 BUN 86 mg/dL (8-23) H 12/29/18 04:00 Creatinine 3.23 mg/dL (0.60-1.20) H 12/29/18 04:00 Est GFR ( Amer) 18 (> 60) L 12/29/18 04:00 Est GFR (Non-Af Amer) 15 (> 60) L 12/29/18 04:00 BUN/Creatinine Ratio 27 (6-26) H 12/29/18 04:00 Glucose 209 mg/dL (70-105) H 12/29/18 04:00 POC Glucose 222 mg/dL (70-99) H 12/29/18 12:32 Calculated Osmolality 324 (280-300) H 12/29/18 04:00 Uric Acid 11.8 mg/dL (2.3-7.6) H 12/28/18 04:35 Phosphorus 6.2 mg/dL (2.7-4.5) H 12/28/18 04:35 AST 101 Units/L (13-39) H 12/27/18 02:20 ALT 255 Units/L (7-52) H 12/27/18 02:20 Lactate Dehydrogenase 380 Units/L (140-271) H 12/26/18 01:30 Troponin I 0.66 ng/mL (< 0.04) H* 12/29/18 00:20 B-Natriuretic Peptide 1332 pg/mL (Less than 100) H 12/23/18 15:36 Serum Total Protein 5.3 g/dL (6.4-8.9) L 12/27/18 02:20 Albumin 3.4 g/dL (3.5-5.7) L 12/27/18 02:20 Globulin 1.9 g/dL (2.4-3.5) L 12/27/18 02:20 25-OH Vitamin D Total 13 ng/mL (30-80) L 12/25/18 15:54 PTH Intact 285.6 pg/ml (10.0-65.0) H 12/25/18 15:54 Urine Clarity Cloudy (Clear) A 12/29/18 13:45 Ur Specific [place] > 1.030 (1.010-1.025) H 12/29/18 13:45 Urine Protein 30 mg/dL (Neg-Trace) H 12/29/18 13:45 Urine Blood Trace (Negative) H 12/29/18 13:45 Urine Microscopic WBC 15-30 per hpf (0-3) H 12/29/18 13:45 Ur Squamous Epith Cells Many per lpf (None-Few) H 12/29/18 13:45 Amorphous Sediment Many (Few) H 12/26/18 17:25 Complement C3 57 mg/dL (87-200) L 12/25/18 15:54 Complement C4 15 mg/dL (19-52) L 12/25/18 15:54 Free [place]on LC, Quant 4.28 mg/dL (0.33-1.94) H 12/25/18 16:09 Free [place]/Lambda Ratio 1.76 (0.26-1.65) H 12/25/18 16:09 Hep Bs Antibody < 3.10 mIU/mL (10.00-) L 12/25/18 16:09 - Microbiology Findings Microbiology Findings: Microbiology, Last 48 Hours 12/29/18 11:11 Blood Culture - Preliminary Peripheral Venipuncture Culture is incubating and being continuously monitored for growth. Final report to follow. 12/29/18 11:11 Blood Culture - Preliminary Peripheral Venipuncture Culture is incubating and being continuously monitored for growth. Final report to follow. 12/23/18 19:16 Blood Culture - Final Peripheral Venipuncture No growth. Final report. 12/23/18 19:16 Blood Culture - Final Peripheral Venipuncture No growth. Final report. - Clinical Findings Intake & Output: Intake & Output 12/28/18 12/29/18 12/29/18 23:59 07:59 15:59 Intake Total 100 / 100 1335 / 1335 Balance 100 / 100 1335 / 1335 Weight 91 kg Consult Discharge Plan - Plan Referrals: Michel Giron MD [Primary Care Provider] - - Attending Attestation I examined this patient and my medical decision-making was reviewed with the Resident Physician. I agree with the documented findings, disposition and treatment plan as described except to the extent set forth below. Patient seen and examined. I was called by the hospitalist to assist this patient because her respiratory status is worsening. Labs, radiology, chart personally reviewed. Agree with resident's history and physical, assessment, plan with following comments: SALES COACH: Patient follows commands, Pulmonary: Acceptable oxygenation and ventilation on noninvasive ventilation, however she is having problem with using accessory muscles of respiratory dist ress and have discussed with patient as well as family at the bedside that next step would be invasive mechanical ventilation and they all agreed on that including the patient. Patient was transferred to intensive care unit for close monitoring with her respiratory status could deteriorate and she will need invasive mechanical ventilation. Changed noninvasive ventilation setting and patient seems to respond better. Patient has multiple comorbidities and prognosis is poor and she understand in mind be difficult to get her off the ventilator if she is intubated. To keep patients on bronchodilators and systemic steroid. Cardiovascular: stable GI: Nutrition per dietary and GI prophylaxis per routine. Keep patient nothing by mouth at this time Heme: DVT prophylaxis per routine ID: Continue antibiotics and plan to de-escalation Renal; urine out put and renal funtion reviewed Endorcine: blood glucose is monitored Lines: all lines checked and no evidence of infections Skin: skin care to prevent pressure ulcers per nursing routine care I spent 35 min of Critical Care time with this patient. It involved decision making of high complexity to assess, manipulate, and support vital organ system failure and/or to prevent further life threatening deterioration of the patient's condition. The time involved in the performance of separately reportable procedures was not counted toward critical care time. 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 latest ABG : PH 7.19, Pco2 58,, po2 69, hco3 22, Feeling more comfortable with Bipap. Plan : Continue antibitics for Pneumonia Continue Bi pap Continue IV Solu Medrol, Nebulization for bronchospsm and Bronchial inflamation. Cautious diuresis for pulmonary condition, BUN and creatinine are still high Check ABG tomorrow as well. (2) Pneumonia Current Visit: Yes Status: Acute The patient presented for shortness of breath with hypoxia CTA chest showed;There is a slightly larger mass in the right upper lobe of the lung, concerning for malignancy with stable metastatic mediastinal lymph nodes. Moderate right and mild left pleural effusions, increased in size on the left, with associated atelectasis in the lungs.Thickened secretions in the lower lobe bronchi which may be related to aspiration versus mucous plugging Blood and sputum culture; preliminary report no growth, final report awaited Urine Legionella antigen and Streptococcus pneumoniae antigen positive Patient is on IV antibiotic Zosyn Plan : continue Zyocin : IV antibitics Wait and watch sputum culture report : final one Continue Duoneb nebulization and Solumedrol for airway inflammation and bronchospsm Continue Bipap. . Qualifiers: Pneumonia type: due to unspecified organism Laterality: right Lung location: lower lobe of lung Qualified Code(s): J18.1 - Lobar pneumonia, unspecified organism (3) (HFpEF) heart failure with preserved ejection fraction Current Visit: Yes Status: Acute The patient's echocardiography showed his ejection fraction; 4045 percent with moderate left ventricular hypertrophy and moderate left ventricular diastolic dysfunction with dilated left ventricle. Recent chest x-ray showed mild congestion with atelectasis at Right side. Plan : Strict intake and output Weight dailly Cautious diuresis for pulmonary condition, BUN and creatinine are still elevated Reduced fluid intake. Qualifiers: Heart failure chronicity: unspecified Qualified Code(s): I50.30 - Unspecified diastolic (congestive) heart failure (4) Essential hypertension Current Visit: Yes Status: Chronic Is a chronic patient of hypertension under medication Hypertension blood pressure is 110/55 He was taking metoprolol 12.5 MG twice a day, it is on hold because of hy pertension (5) Squamous cell carcinoma of lung Current Visit: Yes Status: Chronic Patient is a chronic patient of squamous cell carcinoma of lung stage III, last chemotherapy was in 2017 Oncology consultation has been done, appreciate recommendation Qualifiers: Laterality: right Qualified Code(s): C34.91 - Malignant neoplasm of unspecified part of right bronchus or lung (6) Pleural effusion Current Visit: Yes Status: Acute Patient has minimal bilateral pleural effusion, seen in CTA chest. It was very minimal on latest x-ray done today. Subjective Principal diagnosis: SOB Interval history: 63 year old female with PMH of diabetic ,diastolic heart failure, COPD with pHTN and chronic hypoxic respiratory failure on 4L home oxygen who is currently being managed for stage III squamous cell carcinoma of the right upper lobe of the lung status post concurrent chemoradiotherapy completed 09/03/2018 which was abbreviated secondary to patient noncompliance but has persistent disease. Brought to ER for being more hypoxic than her baseline, found to be 85% on 4L and also hypotensive. Placed on Bipap support. As per her family member note ,she frequently gets more short of breath and hypoxic with physical exertion .CTA was done and ruled out PE but there is an increase in size in the right sided pleural effusion as well as enlargement in her right apical lesion. She reported feeling fatigued, occasionally having chills but no fever and states that her cough is chronic productive of whitish sputum. She was in inpatient since 12/23 and she was transferred to ICU for increased shortness of breath with hypoxia. Today, during my bedside visit the patient was awake, oriented to time place and person, was in slight respiratory distress but getting better with the BiPAP. Vitals; 97.7, pulse 80, blood pressure 110/55, saturation 95% FiO2 90. Latest ABG shows on radial artery : ph 7.19., PCO2 58 ,PO2 69, bicarbonate 22, base excess -7. Troponin trending down from 2.85-0.66. Multidisciplinary team including palliative care, nephrology, oncology, cardiology on board. We are a ssessing her condition closely, will assess her ABG and how she does with BiPAP, then will decide for intubation. Objective PUL Vital signs: Last Vital Signs Temp 97.7 F 12/29/18 12:56 Pulse 88 12/29/18 12:56 Resp 31 12/29/18 12:56 BP 90/59 12/29/18 12:56 Pulse Ox 95 12/29/18 13:32 General appearance: appears uncomfortable, other (She was in acute respiratory distress , getting slightly better with Bipap after she transfered to ICU.) Eyes: nonicteric ENT: oropharynx dry Neck: supple, no lymphadenopathy Cardiovascular: regular rate and rhythm Gastrointestinal: normoactive bowel sounds, soft, non-tender Integumentary: normal normal mental status, non-focal exam, pupils equal and round, motor strength normal and symmetric anxious Results - Laboratory Findings CBC and BMP: 12/29/18 04:00 12/29/18 04:00 ABG ABG pH 7.19 pH Units (7.32-7.45) L* 12/29/18 07:25 ABG pCO2 58 mmHg (35-45) H 12/29/18 07:25 ABG pO2 69 mmHg (85-104) L 12/29/18 07:25 ABG O2 Saturation 88 % (95-98) L 12/29/18 07:25 PT/INR, D-dimer PT 14.2 Seconds (9.4-12.1) H 12/26/18 18:10 Abnormal lab findings: Abnormal lab results WBC 14.8 K/mcL (4.3-11.1) H D 12/29/18 04:00 MCHC 31.1 g/dL (31.6-35.5) L 12/29/18 04:00 RDW 14.6 % (11.5-14.5) H 12/29/18 04:00 Plt Count 113 K/mcL (140-400) L 12/29/18 04:00 Neutrophils # 12.6 K/mcL (1.6-8.9) H 12/25/18 14:15 Nucleated RBCs/100 WBC 2.4 /100 WBC (0) H 12/25/18 14:15 PT 14.2 Seconds (9.4-12.1) H 12/26/18 18:10 APTT 38.6 Seconds (26.0-36.0) H 12/23/18 15:36 ABG pH 7.19 pH Units (7.32-7.45) L* 12/29/18 07:25 ABG pCO2 58 mmHg (35-45) H 12/29/18 07:25 ABG pO2 69 mmHg (85-104) L 12/29/18 07:25 ABG O2 Saturation 88 % (95-98) L 12/29/18 07:25 ABG Base Excess -7 mEq/L (-2 to 3) L 12/29/18 07:25 BUN 86 mg/dL (8-23) H 12/29/18 04:00 Creatinine 3.23 mg/dL (0.60-1.20) H 12/29/18 04:00 Est GFR ( Amer) 18 (> 60) L 12/29/18 04:00 Est GFR (Non-Af Amer) 15 (> 60) L 12/29/18 04:00 BUN/Creatinine Ratio 27 (6-26) H 12/29/18 04:00 Glucose 209 mg/dL (70-105) H 12/29/18 04:00 POC Glucose 222 mg/dL (70-99) H 12/29/18 12:32 Calculated Osmolality 324 (280-300) H 12/29/18 04:00 Uric Acid 11.8 mg/dL (2.3-7.6) H 12/28/18 04:35 Phosphorus 6.2 mg/dL (2.7-4.5) H 12/28/18 04:35 AST 101 Units/L (13-39) H 12/27/18 02:20 ALT 255 Units/L (7-52) H 12/27/18 02:20 Lactate Dehydrogenase 380 Units/L (140-271) H 12/26/18 01:30 Troponin I 0.66 ng/mL (< 0.04) H* 12/29/18 00:20 B-Natriuretic Peptide 1332 pg/mL (Less than 100) H 12/23/18 15:36 Serum Total Protein 5.3 g/dL (6.4-8.9) L 12/27/18 02:20 Albumin 3.4 g/dL (3.5-5.7) L 12/27/18 02:20 Globulin 1.9 g/dL (2.4-3.5) L 12/27/18 02:20 25-OH Vitamin D Total 13 ng/mL (30-80) L 12/25/18 15:54 PTH Intact 285.6 pg/ml (10.0-65.0) H 12/25/18 15:54 Urine Clarity Turbid (Clear) A 12/26/18 17:25 Ur Specific [place] > 1.030 (1.010-1.025) H 12/26/18 17:25 Urine Protein 100 mg/dL (Neg-Trace) H 12/26/18 17:25 Urine Microscopic WBC 5-15 per hpf (0-3) H 12/26/18 17:25 Amorphous Sediment Many (Few) H 12/26/18 17:25 Complement C3 57 mg/dL (87-200) L 12/25/18 15:54 Complement C4 15 mg/dL (19-52) L 12/25/18 15:54 Free [place]on LC, Quant 4.28 mg/dL (0.33-1.94) H 12/25/18 16:09 Free [place]/Lambda Ratio 1.76 (0.26-1.65) H 12/25/18 16:09 Hep Bs Antibody < 3.10 mIU/mL (10.00-) L 12/25/18 16:09 - Microbiology Findings Microbiology Findings: Microbiology, Last 48 Hours 12/29/18 11:11 Blood Culture - Preliminary Peripheral Venipuncture Culture is incubating and being continuously monitored for growth. Final report to follow. 12/29/18 11:11 Blood Culture - Preliminary Peripheral Venipuncture Culture is incubating and being continuously monitored for growth. Final report to follow. 12/23/18 19:16 Blood Culture - Final Peripheral Venipuncture No growth. Final report. 12/23/18 19:16 Blood Culture - Final Peripheral Venipuncture No growth. Final report. - Clinical Findings Intake & Output: Intake & Output 12/28/18 12/29/18 12/29/18 23:59 07:59 15:59 Intake Total 100 / 100 1335 / 1335 Balance 100 / 100 1335 / 1335 Weight 91 kg
[2018-12-29 13:56] LABS: Bilirubin,Urine Negative (Negative); Blood,Urine Trace (Negative); Clarity,Urine Cloudy (Clear); Color,Urine Yellow (Yellow); Glucose,Urine (UA) Normal (Normal); Ketones,Urine Negative (Negative); Leukocyte Esterase,Urine Negative (Negative); Nitrite,Urine Negative (Negative); Protein,Urine 30 mg/dL (Neg-Trace); Specific Gravity,Urine > 1.030 (1.010-1.025); Urobilinogen,Urine Normal (Normal)
[2018-12-29 13:57] LABS: Bacteria,Urine None Seen per hpf (None-Few); Hyaline Casts,Urine Few per lpf (None-Few); Squamous Epithelial Cell,Urine Many per lpf (None-Few); WBC,Urine 15-30 per hpf (0-3)
[2018-12-29 14:09] LABS: RBC,Urine 0-3 per hpf (0-3)
--- NOTE | 2018-12-29 14:23 | Oncology Inp Progress Note ---
<Phoebe Rahman M - Last Filed: 12/29/18 14:17> Date of Encounter: 12/29/18 Time of Encounter: 14:17 Oncology: Subj Interval history: Michelle is awake and alert in bed with family at bedside. She remains on bipap continuously and was transferred to the ICU this morning. She denies pain. She met with the palliative care team this morning and verbalized that she would like to change her code status to DNR CC Arrest. She is accepting of intubation if needed. Michelle confirmed that she received only one infusion of chemotherapy on 12/23/18, Keytruda (pembrolizumab). Discussed that her baseline oxygen saturations of 85 % decreased to 80% on 4L during the infusion and she became hypotensive with SBP's in the 60s. She received IV decadron during management of her adverse reaction and was transported to the ED via EMS. Discussed that we are unable to proceed with additional chemotherapy at this time due to her respiratory and renal compromise. Michelle nodded her head in acceptance. Oncology: Obj Data - Labs CBC & Chem 7: 12/29/18 04:00 12/29/18 04:00 Consult Discharge Plan - Plan Referrals: Michel Giron MD [Primary Care Provider] - <Cari Solomon S - Last Filed: 12/29/18 17:14> Date of Encounter: 12/29/18 (1) MARIE (acute kidney injury) Current Visit: Yes Status: Acute (2) Acute and chronic respiratory failure with hypoxia Current Visit: Yes Status: Acute (3) Lung cancer Current Visit: Yes Status: Acute Oncology: Obj Data - Labs CBC & Chem 7: 12/29/18 04:00 12/29/18 04:00 Inpatient Charges Provider: Dr. Saloni Solomon Follow up - Inpatient: [id number] - Attending Attestation I examined this patient and my medical decision-making was reviewed with the Advanced Practice Nurse. I agree with the documented findings, disposition and treatment plan as described except to the extent set forth below. 1. Progressive hypoxia and respiratory failure. She is currently in ICU on BiPAP may need to have mechanical ventilation Etiology could be cardiac. She has poor ejection fraction/coronary artery disease non-ST PR cardiology. 2. She got 1 dose of Pembrolizumab on 12/23/2018. Unlikely she has radiation pneumonitis. May consider noncontrast CT chest if necessary 3. Acute kidney injury. Creatinine 3.2. She also has evidence of volume overload from CHF. Nephrology following
--- NOTE | 2018-12-29 22:35 | Nephrology Progress Note ---
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 Daughter and son in law at bedside. Pt is now DNRCCA after discussions with palliative care team. Objective - Vital Signs Vital signs: Vital Signs Temp Pulse Resp BP Pulse Ox 12/29/18 22:00 76 20 110/75 96 12/29/18 21:45 19 118/74 96 12/29/18 21:00 86 26 118/74 94 12/29/18 20:59 97.6 F 12/29/18 20:00 90 30 119/82 92 12/29/18 19:00 85 28 127/75 80 12/29/18 18:00 83 26 121/81 95 12/29/18 17:00 88 27 107/73 96 12/29/18 16:00 78 19 116/87 97 12/29/18 15:55 21 110/66 97 12/29/18 15:00 76 20 110/66 97 12/29/18 14:00 86 26 126/77 97 12/29/18 13:32 95 12/29/18 12:56 97.7 F 88 31 90/59 96 12/29/18 12:33 28 110/55 97 12/29/18 12:24 35 97 12/29/18 09:33 21 133/88 93 12/29/18 06:56 97.4 F L 100 26 131/80 96 12/29/18 05:00 97.9 F 129 18 92/79 94 12/29/18 03:30 24 98/87 93 12/29/18 02:00 107/87 12/29/18 01:45 111/80 12/29/18 01:27 101/87 12/29/18 00:48 21 94/68 94 12/28/18 23:51 97.5 F L 140 18 94/68 95 Intake and Output 12/29/18 12/29/18 12/29/18 07:59 15:59 23:59 Intake Total 1335 / 1335 Balance 1335 / 1335 Intake: IV Fluids 1335 / 1335 0.9 % Sodium Chloride 1,000 ML 1000 / 1000 @ 50 mls/hr IVC .Q20H NANCY Rx#: [id number] Heparin 25,000 UNIT/250 ML D5W 235 / 235 25,000 unit In 250 ml @ 14 UNIT /KG/HR 12.39 mls/hr IVC . [id number] NANCY Rx#:[id number] Zosyn 3.375 GM In 0.9 % Sodium 100 / 100 Chloride (Mini-Bag +) 100 ML @ 25 mls/hr IVPB Q12H NANCY Rx#: [id number] Other: Stool Size Moderate Moderate Stool Consistency liquid loose Stool Characteristics Tarry Stool Color Black Black # Urine Diapers 1 1 # Bowel Movements 1 # Bowel Movement Diapers 1 Weight 91 kg Blood Glucose* 190 222 Patient Weight 12/29/18 23:59 Weight 91 kg - General Appearance General appearance: Present: moderate distress (on biPAP) EENT: Present: ATNC, mucous membranes dry Neck: Present: no JVD, supple Additional Comments: decreased BS throughout ant Cardiology: Present: edema (LE bilat), normal S1, normal S2 Gastrointestinal: Present: no tenderness, no guarding Integumentary: Present: warm and dry Neurologic: Present: no focal deficit Musculoskeletal: Present: no deformities Psychiatric: Present: mood/affect appropriate, cooperative - Lab 12/29/18 04:00 12/29/18 04:00 Most recent lab results ABG pH 7.19 pH Units (7.32-7.45) L* 12/29/18 07:25 ABG pCO2 58 mmHg (35-45) H 12/29/18 07:25 ABG pO2 69 mmHg (85-104) L 12/29/18 07:25 ABG HCO3 22 mEq/L (21-27) 12/29/18 07:25 ABG O2 Saturation 88 % (95-98) L 12/29/18 07:25 Calcium 8.8 mg/dL (8.6-10.3) 12/29/18 04:00 Phosphorus 6.2 mg/dL (2.7-4.5) H 12/28/18 04:35 Magnesium 2.4 mg/dL (1.6-2.6) 12/28/18 04:35 Urine Creatinine 131 mg/dL 12/26/18 17:25 Urine Sodium 17.2 mEq/L 12/26/18 17:25 Consult Discharge Plan - Plan Referrals: Michel Giron MD [Primary Care Provider] -
[2018-12-30] MEDS: Heparin 25,000 UNIT/250 ML D5W 25,000 UNIT/250 ML IV.SOLN IVC SCH ×2 (04:09→23:46)
[2018-12-30 04:53] LABS: Basophils % 0.2 %; Hematocrit 40.1 % (35.3-44.9); Hemoglobin 12.2 g/dL (11.5-15.4); Immature Granulocytes % 1.1 % (0-4); Lymphocytes # 0.2 K/mcL (0.6-4.6); Lymphocytes % 1.6 %; Mean Corpuscular HGB Conc 30.4 g/dL (31.6-35.5); Mean Corpuscular Hemoglobin 29.3 pg (28.0-33.3); Mean Corpuscular Volume 96.2 fL (83.0-100.0); Mean Platelet Volume 11.9 fL (9.4-12.4); Monocytes # 0.5 K/mcL (0.0-1.3); Neutrophils # 12.3 K/mcL (1.6-8.9); Nucleated Red Blood Cells 0.4 /100 WBC (0); Platelet Count 107 K/mcL (140-400); Red Blood Count 4.17 M/mcL (3.82-4.97); Red Cell Distribution Width 14.7 % (11.5-14.5); Segmented Neutrophils % 93.1 %
[2018-12-30 05:12] LABS: Calcium 8.6 mg/dL (8.6-10.3); Potassium 4.5 mEq/L (3.5-5.1); Uric Acid 11.5 mg/dL (2.3-7.6)
[2018-12-30 05:19] LABS: ABG Base Excess -3 mEq/L (-2 to 3); ABG HCO3 25 mEq/L (21-27); ABG Oxygen Saturation 92 % (95-98); ABG PCO2 56 mmHg (35-45); ABG PH 7.25 pH Units (7.32-7.45); ABG PO2 76 mmHg (85-104); ABG TCO2 26 mEq/L (20-26); Blood Gas Modality BIVENT
[2018-12-30 05:42] LABS: Alpha 2 Globulin (PEP) 0.86 g/dL (0.48-1.05); Beta Globulin (PEP) 0.48 g/dL (0.48-1.10)
[2018-12-30] MEDS: Insulin LISPRO 300 UNITS/3 ML VIAL SQ SCH ×4 (05:46→23:47)
[2018-12-30] MEDS: MethylPREDNISolone 40 MG/ML VIAL IVP SCH ×2 (05:46→18:16)
--- NOTE | 2018-12-30 07:18 | Pulmonology Progress Note ---
<Stefania Norman P - Last Filed: 12/30/18 16:48> Date of Encounter: 12/30/18 Time of Encounter: 10:00 Assessment and Plan (1) Acute and chronic respiratory failure with hypoxia Current Visit: Yes Status: Acute This is a patient with stage III squamous cell carcinoma of lung, under chemotherapy presented with progressively increased SOB , has acute on chronic respiratory failure with hypoxia and diastolic heart failure, MARIE , COPD, CT chest did not show any pulmonary embolism but right lower lobe infiltrate with Small bilateral pleural effusion, unable to perform diagnostic thoracocentesis for pleural fluid analysis. latest ABG : PH 7.19, Pco2 58,, po2 69, hco3 22, Feeling more comfortable with Bipap. Plan : Continue antibitics for Pneumonia Continue Bi pap Continue IV Solu Medrol, Nebulization for bronchospsm and Bronchial inflamation. Cautious diuresis for pulmonary congestion, BUN and creatinine are still high Check ABG tomorrow as well. Oncology team on loop. (2) Pneumonia Current Visit: Yes Status: Acute The patient presented for shortness of breath with hypoxia CTA chest showed;There is a slightly larger mass in the right upper lobe of the lung, concerning for malignancy with stable metastatic mediastinal lymph nodes. Moderate right and mild left pleural effusions, increased in size on the left, with associated atelectasis in the lungs.Thickened secretions in the lower lobe bronchi which may be related to aspiration versus mucous plugging Blood and sputum culture; preliminary report no growth, final report awaited Urine Legionella antigen and Streptococcus pneumoniae antigen positive Patient is on IV antibiotic Zosyn Plan :continue Zyocin : IV antibitics for total 10 days. Wait and watch sputum culture report : final one Continue Duoneb nebulization and Solumedrol for airway inflammation and bronchospsm Continue Bipap. . Qualifiers: Pneumonia type: due to unspecified organism Laterality: right Lung location: lower lobe of lung Qualified Code(s): J18.1 - Lobar pneumonia, unspecified organism (3) Non-small cell lung cancer Current Visit: No Status: Chronic Patient is a chronic patient of squamous cell carcinoma of lung stage III, last chemotherapy was in 2017 she received new chemo for Ca lung ,only one infusion of chemotherapy on 12/23/18, Keytruda (pembrolizumab). Oncology consultation has been done, appreciate recommendation Palliative care consultation has been requested. with palliative care consultation , Patient and family concluded that patient wanted to continue to "live as long as possible" and they will do anything she agrees to. Patient remains DNRCCA, palliative care will continue to follow and discuss goals of care. Qualifiers: Laterality: unspecified laterality Qualified Code(s): C34.90 - Malignant neoplasm of unspecified part of unspecified bronchus or lung (4) (HFpEF) heart failure with preserved ejection fraction Current Visit: Yes Status: Acute The patient's echocardiography showed his ejection fraction; 4045 percent with moderate left ventricular hypertrophy and moderate left ventricular diastolic dysfunction with dilated left ventricle. Recent chest x-ray showed mild congestion with atelectasis at Right side. Plan : Strict intake and output Weight dailly Cautious diuresis for pulmonary condition, BUN and creatinine are still elevated Reduced fluid intake. Qualifiers: Heart failure chronicity: unspecified Qualified Code(s): I50.30 - Unspecified diastolic (congestive) heart failure (5) Essential hypertension Current Visit: Yes Status: Chronic Is a chronic patient of hypertension under medication Hypertension blood pressure is 110/55 He was taking metoprolol 12.5 MG twice a day, it is on hold because of hyperten stella (6) Pleural effusion Current Visit: Yes Status: Acute Patient has minimal bilateral pleural effusion, seen in CTA chest. It was very minimal on latest x-ray done today. (7) NSTEMI (non-ST elevated myocardial infarction) Current Visit: Yes Status: Acute elevated troponin levels 0.13 --> 1.28--> 3.81 in the setting of acute kidney injury and acute respiratory failure EKG revealed sinus rhythm with intraventricular conduction delay. Cardiology team recommended :Continue medical management. Do not recommend LHC at this time due to worsening renal function and inability to lay flat. Objective PUL Vital signs: Last Vital Signs Temp 97.5 F L 12/30/18 04:42 Pulse 76 12/30/18 06:00 Resp 26 12/30/18 06:00 BP 123/82 12/30/18 06:00 Pulse Ox 96 12/30/18 06:00 General appearance: appears uncomfortable, other (Looks in slight repiratory distress , getting better with Bipap.) Eyes: nonicteric ENT: oropharynx moist Neck: supple, no lymphadenopathy Effort: normal, mildly labored Auscultation: bilateral: diminished breath sounds, wheezes, rales Cardiovascular: regular rate and rhythm Gastrointestinal: normoactive bowel sounds, soft, non-tender, non-distended Integumentary: normal Extremities: no cyanosis non-focal exam, pupils equal and round, motor strength normal and symmetric anxious Results - Laboratory Findings CBC and BMP: 12/30/18 04:30 12/30/18 04:30 ABG ABG pH 7.25 pH Units (7.32-7.45) L 12/30/18 05:15 ABG pCO2 56 mmHg (35-45) H 12/30/18 05:15 ABG pO2 76 mmHg (85-104) L 12/30/18 05:15 ABG O2 Saturation 92 % (95-98) L 12/30/18 05:15 PT/INR, D-dimer PT 14.2 Seconds (9.4-12.1) H 12/26/18 18:10 Abnormal lab findings: Abnormal lab results WBC 13.2 K/mcL (4.3-11.1) H 12/30/18 04:30 MCHC 30.4 g/dL (31.6-35.5) L 12/30/18 04:30 RDW 14.7 % (11.5-14.5) H 12/30/18 04:30 Plt Count 107 K/mcL (140-400) L 12/30/18 04:30 Neutrophils # 12.3 K/mcL (1.6-8.9) H 12/30/18 04:30 Lymphocytes # 0.2 K/mcL (0.6-4.6) L 12/30/18 04:30 Nucleated RBCs/100 WBC 0.4 /100 WBC (0) H 12/30/18 04:30 PT 14.2 Seconds (9.4-12.1) H 12/26/18 18:10 APTT 38.6 Seconds (26.0-36.0) H 12/23/18 15:36 ABG pH 7.25 pH Units (7.32-7.45) L 12/30/18 05:15 ABG pCO2 56 mmHg (35-45) H 12/30/18 05:15 ABG pO2 76 mmHg (85-104) L 12/30/18 05:15 ABG O2 Saturation 92 % (95-98) L 12/30/18 05:15 ABG Base Excess -3 mEq/L (-2 to 3) L 12/30/18 05:15 Chloride 110 mEq/L (98-107) H 12/30/18 04:30 BUN 86 mg/dL (8-23) H 12/30/18 04:30 Creatinine 3.05 mg/dL (0.60-1.20) H 12/30/18 04:30 Est GFR ( Amer) 19 (> 60) L 12/30/18 04:30 Est GFR (Non-Af Amer) 16 (> 60) L 12/30/18 04:30 BUN/Creatinine Ratio 28 (6-26) H 12/30/18 04:30 Glucose 122 mg/dL (70-105) H 12/30/18 04:30 POC Glucose 110 mg/dL (70-99) H 12/30/18 05:40 Calculated Osmolality 323 (280-300) H 12/30/18 04:30 Uric Acid 11.5 mg/dL (2.3-7.6) H 12/30/18 04:30 Phosphorus 6.2 mg/dL (2.7-4.5) H 12/28/18 04:35 AST 101 Units/L (13-39) H 12/27/18 02:20 ALT 255 Units/L (7-52) H 12/27/18 02:20 Lactate Dehydrogenase 380 Units/L (140-271) H 12/26/18 01:30 Troponin I 0.66 ng/mL (< 0.04) H* 12/29/18 00:20 B-Natriuretic Peptide 1332 pg/mL (Less than 100) H 12/23/18 15:36 Serum Total Protein 5.3 g/dL (6.4-8.9) L 12/27/18 02:20 Albumin 3.4 g/dL (3.5-5.7) L 12/27/18 02:20 Globulin 1.9 g/dL (2.4-3.5) L 12/27/18 02:20 25-OH Vitamin D Total 13 ng/mL (30-80) L 12/25/18 15:54 PTH Intact 285.6 pg/ml (10.0-65.0) H 12/25/18 15:54 Urine Clarity Cloudy (Clear) A 12/29/18 13:45 Ur Specific [place] > 1.030 (1.010-1.025) H 12/29/18 13:45 Urine Protein 30 mg/dL (Neg-Trace) H 12/29/18 13:45 Urine Blood Trace (Negative) H 12/29/18 13:45 Urine Microscopic WBC 15-30 per hpf (0-3) H 12/29/18 13:45 Ur Squamous Epith Cells Many per lpf (None-Few) H 12/29/18 13:45 Amorphous Sediment Many (Few) H 12/26/18 17:25 Complement C3 57 mg/dL (87-200) L 12/25/18 15:54 Complement C4 15 mg/dL (19-52) L 12/25/18 15:54 Free Cecil-Bishop LC, Quant 4.28 mg/dL (0.33-1.94) H 12/25/18 16:09 Free Cecil-Bishop/Lambda Ratio 1.76 (0.26-1.65) H 12/25/18 16:09 Hep Bs Antibody < 3.10 mIU/mL (10.00-) L 12/25/18 16:09 - Microbiology Findings Microbiology Findings: Microbiology, Last 48 Hours 12/29/18 11:11 Blood Culture - Preliminary Peripheral Venipuncture Culture is incubating and being continuously monitored for growth. Final report to follow. 12/29/18 11:11 Blood Culture - Preliminary Peripheral Venipuncture Culture is incubating and being continuously monitored for growth. Final report to follow. 12/23/18 19:16 Blood Culture - Final Peripheral Venipuncture No growth. Final report. 12/23/18 19:16 Blood Culture - Final Peripheral Venipuncture No growth. Final report. - Clinical Findings Intake & Output: Intake & Output 12/29/18 12/29/18 12/30/18 15:59 23:59 07:59 Intake Total 1100 / 1100 370 / 370 Balance 1100 / 1100 370 / 370 Weight 93.8 kg Consult Discharge Plan - Plan Referrals: Michel Giron MD [Primary Care Provider] - Subjective Principal diagnosis: SOB Interval history: 63 year old female with PMH of diabetic ,diastolic heart failure, COPD with pHTN and chronic hypoxic respiratory failure on 4L home oxygen who is currently being managed for stage III squamous cell carcinoma of the right upper lobe of the lung status post concurrent chemoradiotherapy completed 09/03/2018 which was abbreviated secondary to patient noncompliance but has persistent disease. she received only one infusion of new chemotherapy on 12/23/18, Keytruda (pembrolizumab). Brought to ER for being more hypoxic than her baseline, found to be 85% on 4L and also hypotensive. Placed on Bipap support. As per her family member note ,she frequently gets more short of breath and hypoxic with physical exertion .CTA was done and ruled out PE but there is an increase in size in the right sided pleural effusion as well as enlargement in her right apical lesion. She reported feeling fatigued, occasionally having chills but no fever and states that her cough is chronic productive of whitish sputum. She was in inpatient since 12/23 and she was transferred to ICU for increased shortness of breath with hypoxia. Today, during my bedside visit the patient was awake, oriented to time place and person, was in slight respiratory distress but getting better with the BiPAP. Vitals; 97.7, pulse 80, blood pressure 105/70, saturation 92% FiO2 80. Latest ABG shows on radial artery : ph 7.25., PCO2 56,PO2 76 bicarbonate 25, base e xcess -3. Troponin trending down from 2.85-0.66. Multidisciplinary team including palliative care, nephrology, oncology, paliative care , cardiology on board. We are assessing her condition closely, will assess her ABG and how she does with BiPAP, then will decide for intubation. <Ok Morales M - Last Filed: 12/31/18 16:10> Date of Encounter: 12/31/18 Objective PUL Vital signs: Last Vital Signs Temp 97.9 F 12/30/18 08:57 Pulse 70 12/30/18 10:00 Resp 20 12/30/18 10:00 BP 105/70 12/30/18 10:00 Pulse Ox 92 12/30/18 10:00 Results - Laboratory Findings CBC and BMP: 12/31/18 04:10 12/31/18 04:10 ABG ABG pH 7.25 pH Units (7.32-7.45) L 12/30/18 05:15 ABG pCO2 56 mmHg (35-45) H 12/30/18 05:15 ABG pO2 76 mmHg (85-104) L 12/30/18 05:15 ABG O2 Saturation 92 % (95-98) L 12/30/18 05:15 PT/INR, D-dimer PT 14.2 Seconds (9.4-12.1) H 12/26/18 18:10 Abnormal lab findings: Abnormal lab results WBC 13.2 K/mcL (4.3-11.1) H 12/30/18 04:30 MCHC 30.4 g/dL (31.6-35.5) L 12/30/18 04:30 RDW 14.7 % (11.5-14.5) H 12/30/18 04:30 Plt Count 107 K/mcL (140-400) L 12/30/18 04:30 Neutrophils # 12.3 K/mcL (1.6-8.9) H 12/30/18 04:30 Lymphocytes # 0.2 K/mcL (0.6-4.6) L 12/30/18 04:30 Nucleated RBCs/100 WBC 0.4 /100 WBC (0) H 12/30/18 04:30 PT 14.2 Seconds (9.4-12.1) H 12/26/18 18:10 APTT 38.6 Seconds (26.0-36.0) H 12/23/18 15:36 ABG pH 7.25 pH Units (7.32-7.45) L 12/30/18 05:15 ABG pCO2 56 mmHg (35-45) H 12/30/18 05:15 ABG pO2 76 mmHg (85-104) L 12/30/18 05:15 ABG O2 Saturation 92 % (95-98) L 12/30/18 05:15 ABG Base Excess -3 mEq/L (-2 to 3) L 12/30/18 05:15 Chloride 110 mEq/L (98-107) H 12/30/18 04:30 BUN 86 mg/dL (8-23) H 12/30/18 04:30 Creatinine 3.05 mg/dL (0.60-1.20) H 12/30/18 04:30 Est GFR ( Amer) 19 (> 60) L 12/30/18 04:30 Est GFR (Non-Af Amer) 16 (> 60) L 12/30/18 04:30 BUN/Creatinine Ratio 28 (6-26) H 12/30/18 04:30 Glucose 122 mg/dL (70-105) H 12/30/18 04:30 POC Glucose 110 mg/dL (70-99) H 12/30/18 05:40 Calculated Osmolality 323 (280-300) H 12/30/18 04:30 Uric Acid 11.5 mg/dL (2.3-7.6) H 12/30/18 04:30 Phosphorus 6.2 mg/dL (2.7-4.5) H 12/28/18 04:35 AST 101 Units/L (13-39) H 12/27/18 02:20 ALT 255 Units/L (7-52) H 12/27/18 02:20 Lactate Dehydrogenase 380 Units/L (140-271) H 12/26/18 01:30 Troponin I 0.66 ng/mL (< 0.04) H* 12/29/18 00:20 B-Natriuretic Peptide 1332 pg/mL (Less than 100) H 12/23/18 15:36 Serum Total Protein 5.3 g/dL (6.4-8.9) L 12/27/18 02:20 Albumin 3.4 g/dL (3.5-5.7) L 12/27/18 02:20 Globulin 1.9 g/dL (2.4-3.5) L 12/27/18 02:20 25-OH Vitamin D Total 13 ng/mL (30-80) L 12/25/18 15:54 PTH Intact 285.6 pg/ml (10.0-65.0) H 12/25/18 15:54 Urine Clarity Cloudy (Clear) A 12/29/18 13:45 Ur Specific [place] > 1.030 (1.010-1.025) H 12/29/18 13:45 Urine Protein 30 mg/dL (Neg-Trace) H 12/29/18 13:45 Urine Blood Trace (Negative) H 12/29/18 13:45 Urine Microscopic WBC 15-30 per hpf (0-3) H 12/29/18 13:45 Ur Squamous Epith Cells Many per lpf (None-Few) H 12/29/18 13:45 Amorphous Sediment Many (Few) H 12/26/18 17:25 Complement C3 57 mg/dL (87-200) L 12/25/18 15:54 Complement C4 15 mg/dL (19-52) L 12/25/18 15:54 Free Cecil-Bishop LC, Quant 4.28 mg/dL (0.33-1.94) H 12/25/18 16:09 Free Cecil-Bishop/Lambda Ratio 1.76 (0.26-1.65) H 12/25/18 16:09 Hep Bs Antibody < 3.10 mIU/mL (10.00-) L 12/25/18 16:09 - Microbiology Findings Microbiology Findings: Microbiology, Last 48 Hours 12/29/18 11:11 Blood Culture - Preliminary Peripheral Venipuncture Culture is incubating and being continuously monitored for growth. Final report to follow. 12/29/18 11:11 Blood Culture - Preliminary Peripheral Venipuncture Culture is incubating and being continuously monitored for growth. Final report to follow. 12/23/18 19:16 Blood Culture - Final Peripheral Venipuncture No growth. Final report. 12/23/18 19:16 Blood Culture - Final Peripheral Venipuncture No growth. Final report. - Clinical Findings Intake & Output: Intake & Output 12/29/18 12/30/18 12/30/18 23:59 07:59 15:59 Intake Total 1100 / 1100 370 / 370 Balance 1100 / 1100 370 / 370 Weight 93.8 kg - Attending Attestation I examined this patient and my medical decision-making was reviewed with the Resident Physician. I agree with the documented findings, disposition and treatment plan as described except to the extent set forth below. Patient seen and examined. Labs, radiology, chart personally reviewed. 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 Palliative care is stopping to the family and nutrition needs to be discussed. She is not a good candidate for TPN and she will be higher risk to have a PEG tube placed for nutrition Heme: DVT prophylaxis per routine ID: Continue antibiotics and plan to de-escalation Renal; urine out put and renal funtion reviewed Endorcine: blood glucose is monitored Lines: all lines checked and no evidence of infections Skin: skin care to prevent pressure ulcers per nursing routine care
[2018-12-30] MEDS: Budesonide/Formoterol 80/4.5 MDI IH SCH ×2 (07:58→20:28)
[2018-12-30] MEDS: Aspirin 81 MG TAB.CHEW PO SCH (08:24)
[2018-12-30] MEDS: Insulin DETEMIR 100 UNIT/ML X5UNITS SQ SCH ×2 (08:25→20:43)
[2018-12-30] MEDS: Piperacillin/Tazobactam 3.375 GM in 0.9 % Sodium Chloride Mini Bag 100 ML IVPB SCH ×2 (13:10→23:45)
--- NOTE | 2018-12-30 13:22 | Palliative Progress Note ---
Date of Encounter: 12/30/18 Time of Encounter: 13:20 - Assessment and plan (1) Goals of care, counseling/discussion Current Visit: Yes Status: Acute Assessment and plan: Family stated that pt was now agreeable with HD. Confirmed with patient. Conducted a meeting with patient's daughter and son in conference room. Discussed that the current condition is due primarily to lung cancer, explained the concern that patient respiratory status may continue to worsen. I urge them to consider that patient was dying from lung cancer, and none of the currently offered procedures, including HD and intubation will change the prognosis, and that patient may be agreeing to some of these procedures to appease her family. Family was appropriately emotional, but concluded that patient wanted to continue to "live as long as possible" and they will do anything she agrees to. Patient remains DNRCCA, palliative care will continue to follow and discuss goals of care. (2) MARIE (acute kidney injury) Current Visit: Yes Status: Acute Assessment and plan: nephrology on the case, discussed PHARMACEUTICAL SALES REPRESENTATIVE with patient, she is agreeable. Creatinine slightly better today, however urine output is low. (3) Acute and chronic respiratory failure with hypoxia Current Visit: Yes Status: Acute Assessment and plan: Remains BiPAP dependent. was transferred to MICU for impending fatigue. So far patient is stable on the BiPAP. She is agreeable to intubation. 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 - Time Spent With Patient Total time spent is greater than 50% in coordination of care (as documented) at patient's floor/unit and/or counseling patient: 25 - 35 minutes - Subjective Interval history: Patient remains in BiPAP, and remains NPO. She was transferred to ICU due to worries about need of intubation. Daughter and son were present at the bedside. - Constitutional Vitals: Abnormal lab results WBC 13.2 K/mcL (4.3-11.1) H 12/30/18 04:30 MCHC 30.4 g/dL (31.6-35.5) L 12/30/18 04:30 RDW 14.7 % (11.5-14.5) H 12/30/18 04:30 Plt Count 107 K/mcL (140-400) L 12/30/18 04:30 Neutrophils # 12.3 K/mcL (1.6-8.9) H 12/30/18 04:30 Lymphocytes # 0.2 K/mcL (0.6-4.6) L 12/30/18 04:30 Nucleated RBCs/100 WBC 0.4 /100 WBC (0) H 12/30/18 04:30 PT 14.2 Seconds (9.4-12.1) H 12/26/18 18:10 APTT 38.6 Seconds (26.0-36.0) H 12/23/18 15:36 ABG pH 7.25 pH Units (7.32-7.45) L 12/30/18 05:15 ABG pCO2 56 mmHg (35-45) H 12/30/18 05:15 ABG pO2 76 mmHg (85-104) L 12/30/18 05:15 ABG O2 Saturation 92 % (95-98) L 12/30/18 05:15 ABG Base Excess -3 mEq/L (-2 to 3) L 12/30/18 05:15 Chloride 110 mEq/L (98-107) H 12/30/18 04:30 BUN 86 mg/dL (8-23) H 12/30/18 04:30 Creatinine 3.05 mg/dL (0.60-1.20) H 12/30/18 04:30 Est GFR ( Amer) 19 (> 60) L 12/30/18 04:30 Est GFR (Non-Af Amer) 16 (> 60) L 12/30/18 04:30 BUN/Creatinine Ratio 28 (6-26) H 12/30/18 04:30 Glucose 122 mg/dL (70-105) H 12/30/18 04:30 POC Glucose 106 mg/dL (70-99) H 12/30/18 11:49 Calculated Osmolality 323 (280-300) H 12/30/18 04:30 Uric Acid 11.5 mg/dL (2.3-7.6) H 12/30/18 04:30 Phosphorus 6.2 mg/dL (2.7-4.5) H 12/28/18 04:35 AST 101 Units/L (13-39) H 12/27/18 02:20 ALT 255 Units/L (7-52) H 12/27/18 02:20 Lactate Dehydrogenase 380 Units/L (140-271) H 12/26/18 01:30 Troponin I 0.66 ng/mL (< 0.04) H* 12/29/18 00:20 B-Natriuretic Peptide 1332 pg/mL (Less than 100) H 12/23/18 15:36 Serum Total Protein 5.3 g/dL (6.4-8.9) L 12/27/18 02:20 Albumin 3.4 g/dL (3.5-5.7) L 12/27/18 02:20 Globulin 1.9 g/dL (2.4-3.5) L 12/27/18 02:20 25-OH Vitamin D Total 13 ng/mL (30-80) L 12/25/18 15:54 PTH Intact 285.6 pg/ml (10.0-65.0) H 12/25/18 15:54 Urine Clarity Cloudy (Clear) A 12/29/18 13:45 Ur Specific [place] > 1.030 (1.010-1.025) H 12/29/18 13:45 Urine Protein 30 mg/dL (Neg-Trace) H 12/29/18 13:45 Urine Blood Trace (Negative) H 12/29/18 13:45 Urine Microscopic WBC 15-30 per hpf (0-3) H 12/29/18 13:45 Ur Squamous Epith Cells Many per lpf (None-Few) H 12/29/18 13:45 Amorphous Sediment Many (Few) H 12/26/18 17:25 Complement C3 57 mg/dL (87-200) L 12/25/18 15:54 Complement C4 15 mg/dL (19-52) L 12/25/18 15:54 Free Bartlett LC, Quant 4.28 mg/dL (0.33-1.94) H 12/25/18 16:09 Free Bartlett/Lambda Ratio 1.76 (0.26-1.65) H 12/25/18 16:09 Hep Bs Antibody < 3.10 mIU/mL (10.00-) L 12/25/18 16:09 Exam: Vitals: Reviewed General: Obese, Alert and oriented. In mild respiratory distress on BiPAP Skin: Normal color, no rash, no lesions. HEENT: EOM, pupils equal, round and reactive. Cardiovascular: RRR, normal S1 & S2, no rubs, murmurs or gallops. Lungs: scattered b/l wheezes, rales on the left lower lobe, crackles. Abdomen: Obese, soft, non-tender, no rigidity. Extremities: bilateral edema, No deformity, tenderness, no joint swelling or clubbing. Neurological: No focal deficit Palliative Quality Palliative Quality: Screen for Code Status: Yes, Screen for Goals of Care: Yes, Screen for Pain: Yes, If Pain Regimen Started, Initiate Bowel Regimen: NA, Screen for Nausea/Vomitting: Yes Code Status: 12/23/18 20:11 Resuscitation Status: Active [RES] Stat Comment: Resuscitation Status: Full Code 12/29/18 11:55 DNR [Resuscitation Status: Active] [RES] Routine Comment: State form completed; patient signed. Resuscitation Status: DNR-Comfort Care-Arrest - Labs CBC & Chem 7: 12/30/18 04:30 12/30/18 04:30 Labs: Laboratory Results - last 24 hr 12/29/18 12/29/18 12/29/18 13:45 15:40 15:45 WBC RBC Hgb Hct MCV MCH MCHC RDW Plt Count MPV Immature Gran % Seg Neutrophils % Lymphocytes % Monocytes % Eosinophils % Basophils % Neutrophils # Lymphocytes # Monocytes # Eosinophils # Basophils # Nucleated RBCs/100 WBC Heparin Anti-Xa, Unfract Sample Site ABG pH ABG pCO2 ABG pO2 ABG HCO3 ABG Total CO2 ABG O2 Saturation ABG Base Excess Alok Test O2 Delivery Device Blood Gas Modality Inspired O2 Sodium Potassium Chloride Carbon Dioxide BUN Creatinine Est GFR ( Amer) Est GFR (Non-Af Amer) BUN/Creatinine Ratio Glucose POC Glucose 200 H Calculated Osmolality Uric Acid Calcium Urine Color Yellow Urine Clarity Cloudy A Urine pH 5.0 Ur Specific [place] > 1.030 H Urine Protein 30 H Urine Glucose (UA) Normal Urine Ketones Negative Urine Blood Trace H Urine Nitrite Negative Urine Bilirubin Negative Urine Urobilinogen Normal Ur Leukocyte Esterase Negative Urine Microscopic RBC 0-3 Urine Microscopic WBC 15-30 H Ur Squamous Epith Cells Many H Urine Bacteria None Seen Hyaline Casts Few Ur Culture Indicated? NO Nasal Screen MRSA (PCR) Negative 12/29/18 12/29/18 12/30/18 18:08 23:40 04:30 WBC RBC Hgb Hct MCV MCH MCHC RDW Plt Count MPV Immature Gran % Seg Neutrophils % Lymphocytes % Monocytes % Eosinophils % Basophils % Neutrophils # Lymphocytes # Monocytes # Eosinophils # Basophils # Nucleated RBCs/100 WBC Heparin Anti-Xa, Unfract Sample Site ABG pH ABG pCO2 ABG pO2 ABG HCO3 ABG Total CO2 ABG O2 Saturation ABG Base Excess Alok Test O2 Delivery Device Blood Gas Modality Inspired O2 Sodium 143 Potassium 4.5 Chloride 110 H Carbon Dioxide 25 BUN 86 H Creatinine 3.05 H Est GFR ( Amer) 19 L Est GFR (Non-Af Amer) 16 L BUN/Creatinine Ratio 28 H Glucose 122 H POC Glucose 183 H 173 H Calculated Osmolality 323 H Uric Acid 11.5 H Calcium 8.6 Urine Color Urine Clarity Urine pH Ur Specific [place] Urine Protein Urine Glucose (UA) Urine Ketones Urine Blood Urine Nitrite Urine Bilirubin Urine Urobilinogen Ur Leukocyte Esterase Urine Microscopic RBC Urine Microscopic WBC Ur Squamous Epith Cells Urine Bacteria Hyaline Casts Ur Culture Indicated? Nasal Screen MRSA (PCR) 12/30/18 12/30/18 12/30/18 04:30 04:30 05:15 WBC 13.2 H RBC 4.17 Hgb 12.2 Hct 40.1 MCV 96.2 MCH 29.3 MCHC 30.4 L RDW 14.7 H Plt Count 107 L MPV 11.9 Immature Gran % 1.1 Seg Neutrophils % 93.1 Lymphocytes % 1.6 Monocytes % 4.0 Eosinophils % 0.0 Basophils % 0.2 Neutrophils # 12.3 H Lymphocytes # 0.2 L Monocytes # 0.5 Eosinophils # 0.0 Basophils # 0.0 Nucleated RBCs/100 WBC 0.4 H Heparin Anti-Xa, Unfract 0.53 Sample Site R Radial ABG pH 7.25 L ABG pCO2 56 H ABG pO2 76 L ABG HCO3 25 ABG Total CO2 26 ABG O2 Saturation 92 L ABG Base Excess -3 L Alok Test Positive O2 Delivery Device BiPAP Blood Gas Modality BIVENT Inspired O2 80.0 Sodium Potassium Chloride Carbon Dioxide BUN Creatinine Est GFR ( Amer) Est GFR (Non-Af Amer) BUN/Creatinine Ratio Glucose POC Glucose Calculated Osmolality Uric Acid Calcium Urine Color Urine Clarity Urine pH Ur Specific [place] Urine Protein Urine Glucose (UA) Urine Ketones Urine Blood Urine Nitrite Urine Bilirubin Urine Urobilinogen Ur Leukocyte Esterase Urine Microscopic RBC Urine Microscopic WBC Ur Squamous Epith Cells Urine Bacteria Hyaline Casts Ur Culture Indicated? Nasal Screen MRSA (PCR) 12/30/18 12/30/18 05:40 11:49 WBC RBC Hgb Hct MCV MCH MCHC RDW Plt Count MPV Immature Gran % Seg Neutrophils % Lymphocytes % Monocytes % Eosinophils % Basophils % Neutrophils # Lymphocytes # Monocytes # Eosinophils # Basophils # Nucleated RBCs/100 WBC Heparin Anti-Xa, Unfract Sample Site ABG pH ABG pCO2 ABG pO2 ABG HCO3 ABG Total CO2 ABG O2 Saturation ABG Base Excess Alok Test O2 Delivery Device Blood Gas Modality Inspired O2 Sodium Potassium Chloride Carbon Dioxide BUN Creatinine Est GFR ( Amer) Est GFR (Non-Af Amer) BUN/Creatinine Ratio Glucose POC Glucose 110 H 106 H Calculated Osmolality Uric Acid Calcium Urine Color Urine Clarity Urine pH Ur Specific [place] Urine Protein Urine Glucose (UA) Urine Ketones Urine Blood Urine Nitrite Urine Bilirubin Urine Urobilinogen Ur Leukocyte Esterase Urine Microscopic RBC Urine Microscopic WBC Ur Squamous Epith Cells Urine Bacteria Hyaline Casts Ur Culture Indicated? Nasal Screen MRSA (PCR) - ABG Interpretation ABG results: ABG ABG pH 7.25 pH Units (7.32-7.45) L 12/30/18 05:15 ABG pCO2 56 mmHg (35-45) H 12/30/18 05:15 ABG pO2 76 mmHg (85-104) L 12/30/18 05:15 ABG O2 Saturation 92 % (95-98) L 12/30/18 05:15 PT/INR, D-dimer PT 14.2 Seconds (9.4-12.1) H 12/26/18 18:10 Palliative Scale - Palliative Performance Scale How ambulatory is this patient?: Mainly in bed What is patient's level of activity and evidence of disease?: Unable to do any work, Extensive disease How much self-care assistance does patient require?: Considerable assistance required How much oral intake does the patient have?: Mouth care only What is this patient's level of consciousness?: Full Palliative Performance Score: 40 % Consult Discharge Plan - Plan Referrals: Michel Giron MD [Primary Care Provider] -
--- NOTE | 2018-12-30 15:55 | Oncology Inp Progress Note ---
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 Status post concurrent chemoradiotherapy to the lung/glottic larynx with weekly cisplatin/paclitaxel x6 doses completed 09/03/2018. Chemotherapy course was abbreviated secondary to patient noncompliance. She was noted to have persistent disease involving the primary as well as mediastinal lymph nodes by PET/CT 11/26/2018 and recommended to start palliative intent dose attenuated carboplatin, abraxane and pembrolizumab initiated 12/23/2018. Recommended to present to ER following treatment for hypoxia and hypotension. CTA which noted interval increase in size of the right apical mass compared to 09/26/2018, septal thickening in the right lung which could represent lymphangitic metastasis or a component of asymmetric pulmonary edema, New right- sided pleural effusion, scattered bilateral airspace disease likely represents superimposed pneumonia, negative for PE. Plan: Patient continues to be bipap dependant, discussed potential consideration of therapeutic thoracentesis-appears small and not be amendable to drainage but Dr. Solomon would like to repeat CT chest without contrast tomorrow Hypoxia likely multifactorial secondary infection/PNA vs. COPD vs. HF complicated by known lung malignancy Pulmonology on board, appreciate recommendations Her overall prognosis is poor, she is not a good candidate for further chemotherapy, agree with palliative care discussions and encourage further goals of care discussions with patient/family, we will continue to follow along for these discussions, patient is DNR-CCA but wishes to continue with aggressive care including consideration of HD and artificial nutrition (2) Squamous cell carcinoma of lung Current Visit: Yes Status: Chronic Qualifiers: Laterality: right Qualified Code(s): C34.91 - Malignant neoplasm of unspecified part of right bronchus or lung (3) Elevated troponin Current Visit: Yes Status: Acute Assessment and plan: Cardiology consulted for concern for NSTEMI Currently denies chest pain Recommend echo and medical management, currently on heparin gtt BNP level elevated at 1332-Unable to diurese secondary to acute kidney injury. Echo 09/26/18 revealed LVEF 50-55%, CT chest revealed right-sided pleural effusion--- 2/2 CHF vs. infection vs. malignancy Cardiology does not recommend LHC due to MARIE and patients inability to tolerate laying flat (4) MARIE (acute kidney injury) Current Visit: Yes Status: Acute Assessment and plan: Worsening renal failure, multifactorial in setting of decreased oral intake, contrast exposure, hypotension, possible renal infarct noted on CT Plan: Nephrology consulted and following-they have discussed goals of care in regards to MELTING OPERATOR at length, planning to discuss further tomorrow, patient considering MELTING OPERATOR Oncology: Subj Interval history: Ms. Kumar is resting in bed. Bipap in place. family at bedside. She remains bipap dependant. She has been discussing consideration of HD with nephrology and is still considering. Denies pain. - Constitutional General appearance: cooperative, no acute distress, no febrile Exam: Currently on bipap, appears uncomfortable - Head Head exam: Present: atraumatic - ENT Additional comments: not observed due to bipap - Respiratory Respiratory exam: Present: decreased breath sounds, rales. Absent: respiratory distress - Cardiovascular Cardiovascular exam: Present: RRR, +S1, +S2 - GI/Abdominal GI/Abdominal exam: Present: normal bowel sounds, soft. Absent: tenderness - Extremities Exam Extremities exam: Present: normal inspection. Absent: calf tenderness - Neurological Exam Neurological exam: Present: alert, no focal deficits, strengths equal and symetr throughout - Psychiatric Psychiatric exam: Present: anxious - Skin Skin exam: Present: dry, pallor, warm Oncology: Obj Data - Labs CBC & Chem 7: 12/31/18 04:10 12/31/18 04:10 Consult Discharge Plan - Plan Referrals: Michel Giron MD [Primary Care Provider] - Inpatient Charges Provider: Dr. Saloni Solomon <Cari Solomon S - Last Filed: 12/31/18 18:16> Date of Encounter: 12/30/18 Time of Encounter: 16:34 (1) MARIE (acute kidney injury) Current Visit: Yes Status: Acute (2) Acute and chronic respiratory failure with hypoxia Current Visit: Yes Status: Acute (3) Lung cancer Current Visit: Yes Status: Acute Oncology: Obj Data - Labs CBC & Chem 7: 12/31/18 04:10 12/31/18 04:10 Inpatient Charges Provider: Dr. Saloni Solomon Follow up - Inpatient: [id number] - Attending Attestation I examined this patient and my medical decision-making was reviewed with the Advanced Practice Nurse Linda blunt. I agree with the documented findings, disposition and treatment plan as described except to the extent set forth below. 1. Acute respiratory failure. His combination lung infiltrate effusions and just a heart failure symptoms. Pulmonology following Proceed with CT chest without contrast to make sure she does not have additional findings like pneumonitis 2. Acute kidney injury. Creatinine stabilized at 3. Nephrology following recommended hemodialysis. Overall prognosis guarded
[2018-12-30 16:24] LABS: IFE Reflexed IFE Done; Immunoglobulin A 112 mg/dL (68-408); Immunoglobulin G 665 mg/dL (768-1632); Immunoglobulin M 33 mg/dL (35-263)
[2018-12-30] MEDS: 0.9 % Sodium Chloride 1,000 ML IVC SCH (18:23)
--- NOTE | 2018-12-30 21:28 | Electrocardiograph Report ---
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
--- NOTE | 2018-12-30 23:59 | Nephrology Progress Note ---
Date of Encounter: 12/30/18 Time of Encounter: 12:00 - Assessment and Plan (1) MARIE (acute kidney injury) Current Visit: Yes Status: Acute SCr slightly better today at 3.05, GFR 16 No acute indication for BROOMMAKING SUPERVISOR at this time but after another lengthy discussions, pt now wants to survive as long as possible and wants BROOMMAKING SUPERVISOR if necessary UOP not being documented as pt is wearing depends but nurse reports 3 urine soaked underwear for the day Continue to avoid nephrotoxins if possible Continue IVF for now (2) Acute and chronic respiratory failure with hypoxia Current Visit: Yes Status: Acute (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 (4) NSTEMI (non-ST elevated myocardial infarction) Current Visit: Yes Status: Acute (5) Squamous cell carcinoma of lung Current Visit: Yes Status: Chronic Qualifiers: Laterality: right Qualified Code(s): C34.91 - Malignant neoplasm of unspecified part of right bronchus or lung Subjective Principal diagnosis: SOB Interval history: Pt seen and examined remains on biPAP continously with family at bedside: son and one of her daughters,appears comfortable Objective - Vital Signs Vital signs: Vital Signs Temp Pulse Resp BP Pulse Ox 12/30/18 23:00 72 25 100/68 87 12/30/18 22:00 75 29 121/75 89 12/30/18 21:00 80 23 110/67 90 12/30/18 20:37 97.9 F 12/30/18 20:30 29 119/69 91 12/30/18 20:00 80 26 119/69 89 12/30/18 19:00 82 26 118/73 94 12/30/18 18:00 84 26 113/75 93 12/30/18 17:00 84 24 114/86 93 12/30/18 16:32 96.7 F L 12/30/18 16:00 96.7 F L 79 23 115/75 92 12/30/18 15:00 81 21 110/73 94 12/30/18 14:00 76 29 107/82 96 12/30/18 13:00 78 29 107/73 96 12/30/18 12:30 76 12/30/18 12:00 97.1 F L 76 27 105/78 96 12/30/18 11:58 97.1 F L 12/30/18 11:00 76 27 119/79 96 03/19/19 10:00 70 20 105/70 92 12/30/18 09:00 74 20 119/82 96 12/30/18 08:57 97.9 F 12/30/18 08:00 97.9 F 80 30 120/72 95 12/30/18 07:59 18 94 12/30/18 07:30 71 30 110/68 95 12/30/18 06:00 76 26 123/82 96 12/30/18 05:00 77 26 114/70 93 12/30/18 04:42 97.5 F L 12/30/18 04:00 84 26 124/75 96 12/30/18 03:43 20 101/67 96 12/30/18 03:00 74 18 101/67 95 12/30/18 02:00 71 18 103/67 94 12/30/18 01:17 25 103/88 93 12/30/18 01:03 97.6 F 12/30/18 01:00 76 21 103/66 96 12/30/18 00:00 74 20 108/70 94 Intake and Output 12/30/18 12/30/18 12/30/18 07:59 15:59 23:59 Intake Total 370 / 370 1570 / 1570 Output Total 100 / 100 Balance 370 / 370 1470 / 1470 Intake: IV Fluids 370 / 370 1330 / 1330 0.9 % Sodium Chloride 1,000 ML 1000 / 1000 @ 50 mls/hr IVC .Q20H NANCY Rx#: [id number] Heparin 25,000 UNIT/250 ML D5W 270 / 270 230 / 230 25,000 unit In 250 ml @ 14 UNIT /KG/HR 12.39 mls/hr IVC . [id number] NANCY Rx#:[id number] Zosyn 3.375 GM In 0.9 % Sodium 100 / 100 100 / 100 Chloride (Mini-Bag +) 100 ML @ 25 mls/hr IVPB Q12H NANCY Rx#: [id number] Oral 240 / 240 Output: Catheter 100 / 100 Other: Stool Size Moderate Moderate Stool Consistency loose loose Stool Characteristics Tarry Tarry Stool Color Black Black # Voids 1 # Urine Diapers 1 # Bowel Movement Diapers 1 Weight 93.8 kg Blood Glucose* 173 106 104 Patient Weight 12/30/18 23:59 Weight 93.8 kg - Lab 03/19/19 04:30 12/30/18 04:30 Most recent lab results ABG pH 7.25 pH Units (7.32-7.45) L 12/30/18 05:15 ABG pCO2 56 mmHg (35-45) H 12/30/18 05:15 ABG pO2 76 mmHg (85-104) L 12/30/18 05:15 ABG HCO3 25 mEq/L (21-27) 12/30/18 05:15 ABG O2 Saturation 92 % (95-98) L 12/30/18 05:15 Calcium 8.6 mg/dL (8.6-10.3) 12/30/18 04:30 Phosphorus 6.2 mg/dL (2.7-4.5) H 12/28/18 04:35 Magnesium 2.4 mg/dL (1.6-2.6) 12/28/18 04:35 Urine Creatinine 131 mg/dL 12/26/18 17:25 Urine Sodium 17.2 mEq/L 12/26/18 17:25 Consult Discharge Plan - Plan Referrals: Michel Giron MD [Primary Care Provider] -
[2018-12-31 04:29] LABS: Hematocrit 40.1 % (35.3-44.9); Hemoglobin 12.2 g/dL (11.5-15.4); Mean Corpuscular HGB Conc 30.4 g/dL (31.6-35.5); Mean Corpuscular Hemoglobin 29.3 pg (28.0-33.3); Mean Corpuscular Volume 96.4 fL (83.0-100.0); Mean Platelet Volume 12.2 fL (9.4-12.4); Platelet Count 112 K/mcL (140-400); Red Blood Count 4.16 M/mcL (3.82-4.97)
[2018-12-31 04:50] LABS: Calcium 8.6 mg/dL (8.6-10.3); Potassium 4.5 mEq/L (3.5-5.1)
[2018-12-31] MEDS: Insulin LISPRO 300 UNITS/3 ML VIAL SQ SCH ×3 (05:29→18:18)
[2018-12-31] MEDS: MethylPREDNISolone 40 MG/ML VIAL IVP SCH ×2 (05:29→18:24)
--- NOTE | 2018-12-31 06:44 | Pulmonology Progress Note ---
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 latest ABG : Ph 7.25, Pco2 56, Po2 76, Hco3 25 ,Feeling a little bit comfortable with Bipap. Plan : Continue antibitics for Pneumonia X toady 8th day for Zocyn. Continue Bi pap Continue IV Solu Medrol, Nebulization for bronchospsm and Bronchial inflamation. Cautious diuresis for pulmonary congestion, BUN and creatinine are still high Check ABG tomorrow as well. Oncology team on loop. (2) Pneumonia Current Visit: Yes Status: Acute The patient presented for shortness of breath with hypoxia CTA chest showed;There is a slightly larger mass in the right upper lobe of the lung, concerning for malignancy with stable metastatic mediastinal lymph nodes. Moderate right and mild left pleural effusions, increased in size on the left, with associated atelectasis in the lungs.Thickened secretions in the lower lobe bronchi which may be related to aspiration versus mucous plugging Blood and sputum culture; preliminary report no growth, final report awaited Urine Legionella antigen and Streptococcus pneumoniae antigen positive Patient is on IV antibiotic Zosyn Plan :continue Zyocin : IV antibitics for total 10 days( today 8th day ) Wait and watch sputum culture report : final one Continue Duoneb nebulization and Solumedrol for airway inflammation and bronchospsm Continue Bipap. . Qualifiers: Pneumonia type: due to unspecified organism Laterality: right Lung location: lower lobe of lung Qualified Code(s): J18.1 - Lobar pneumonia, unspecified organism (3) Non-small cell lung cancer Current Visit: No Status: Chronic Patient is a chronic patient of squamous cell carcinoma of lung stage III, last chemotherapy was in 2017 she received new chemo for Ca lung ,only one infusion of chemotherapy on 12/23/18, Keytruda (pembrolizumab). Oncology consultation has been done, appreciate recommendation Palliative care consultation has been requested. palliative care consultation note : Patient and family concluded that patient wanted to continue to "live as long as possible" and they will do anything she agrees to. Patient remains DNRCCA, palliative care will continue to follow and discuss goals of care. Qualifiers: Laterality: unspecified laterality Qualified Code(s): C34.90 - Malignant neoplasm of unspecified part of unspecified bronchus or lung (4) (HFpEF) heart failure with preserved ejection fraction Current Visit: Yes Status: Acute The patient's echocardiography showed his ejection fraction; 4045 percent with moderate left ventricular hypertrophy and moderate left ventricular diastolic d ysfunction with dilated left ventricle. Recent chest x-ray showed mild congestion with atelectasis at Right side. Plan : Strict intake and output Weight dailly Cautious diuresis for pulmonary condition, BUN and creatinine are still elevated Reduced fluid intake. Qualifiers: Heart failure chronicity: unspecified Qualified Code(s): I50.30 - Unspecified diastolic (congestive) heart failure (5) Essential hypertension Current Visit: Yes Status: Chronic Is a chronic patient of hypertension under medication Hypertension blood pressure is 110/55 He was taking metoprolol 12.5 MG twice a day, it is on hold because of hypertension (6) Pleural effusion Current Visit: Yes Status: Acute Patient has minimal bilateral pleural effusion, seen in CTA chest. It was very minimal on latest x-ray done today. Resolving with IV antibiotics. (7) NSTEMI (non-ST elevated myocardial infarction) Current Visit: Yes Status: Acute elevated troponin levels 0.13 --> 1.28--> 3.81 in the setting of acute kidney injury and acute respiratory failure EKG revealed sinus rhythm with intraventricular conduction delay. Cardiology team recommended :Continue medical management. Do not recommend LHC at this time due to worsening renal function and inability to lay flat. Heparin drip has been discontinued . Subjective Principal diagnosis: SOB Interval history: 63 year old female with PMH of diabetic ,diastolic heart failure, COPD with pHTN and chronic hypoxic respiratory failure on 4L home oxygen who is currently being managed for stage III squamous cell carcinoma of the right upper lobe of the lung status post concurrent chemoradiotherapy completed 09/03/2018 which was abbreviated secondary to patient noncompliance but has persistent disease. she received only one infusion of new chemotherapy on 12/23/18, Keytruda (pembrolizumab). Brought to ER for being more hypoxic than her baseline, found to be 85% on 4L and also hypotensive. Placed on Bipap support. As per her family member note ,she frequently gets more short of breath and hypoxic with physical exertion .CTA was done and ruled out PE but there is an increase in size in the right sided pleural effusion as well as enlargement in her right apical lesion. She reported feeling fatigued, occasionally having chills but no fever and states that her cough is chronic productive of whitish sputum. She was in inpatient since 12/23 and she was transferred to ICU for increased shortness of breath with hypoxia. Today, during my bedside visit the patient was awake, oriented to time place and person, was in slight respiratory distress but a little bit more comfortable with the BiPAP. Vitals; 98, pulse 74, blood pressure 93/51 saturation 88% FiO2 60. Latest ABG shows on radial artery : ph 7.25., PCO2 56,PO2 76 bicarbonate 25, base excess -3. Troponin trending down from 2.85-0.66. Multidisciplinary team including palliative care, nephrology, oncology, cardiology on board. We are assessing her condition closely, will assess her ABG and how she does with BiPAP, then will decide for intubation.. During round, senior project controls specialist was present, she has been discussing for goal of care with family. Pt will be continued on BiPAP, we we are not planning any TPN. Nephrology team is on board and they will review today; today her creatinine 2.94 and BUN 92 GFR 16. Cardiology team has signed off as she is not candidate for left heart catheterization. Objective PUL Vital signs: Last Vital Signs Temp 96.4 F L 12/31/18 03:33 Pulse 78 12/31/18 06:00 Resp 30 12/31/18 06:00 BP 106/57 12/31/18 06:00 Pulse Ox 89 12/31/18 06:00 General appearance: appears uncomfortable Eyes: nonicteric ENT: oropharynx moist Neck: supple Effort: mildly labored Auscultation: bilateral: diminished breath sounds, wheezes, rales Cardiovascular: regular rate and rhythm Gastrointestinal: normoactive bowel sounds, soft, non-tender, non-distended Integumentary: normal Extremities: no cyanosis pupils equal and round, motor strength normal and symmetric anxious Results - Laboratory Findings CBC and BMP: 12/31/18 04:10 12/31/18 04:10 ABG ABG pH 7.25 pH Units (7.32-7.45) L 12/30/18 05:15 ABG pCO2 56 mmHg (35-45) H 12/30/18 05:15 ABG pO2 76 mmHg (85-104) L 12/30/18 05:15 ABG O2 Saturation 92 % (95-98) L 12/30/18 05:15 PT/INR, D-dimer PT 14.2 Seconds (9.4-12.1) H 12/26/18 18:10 Abnormal lab findings: Abnormal lab results WBC 14.0 K/mcL (4.3-11.1) H 12/31/18 04:10 MCHC 30.4 g/dL (31.6-35.5) L 12/31/18 04:10 RDW 15.0 % (11.5-14.5) H 12/31/18 04:10 Plt Count 112 K/mcL (140-400) L 12/31/18 04:10 Neutrophils # 12.3 K/mcL (1.6-8.9) H 12/30/18 04:30 Lymphocytes # 0.2 K/mcL (0.6-4.6) L 12/30/18 04:30 Nucleated RBCs/100 WBC 0.4 /100 WBC (0) H 12/30/18 04:30 PT 14.2 Seconds (9.4-12.1) H 12/26/18 18:10 APTT 38.6 Seconds (26.0-36.0) H 12/23/18 15:36 ABG pH 7.25 pH Units (7.32-7.45) L 12/30/18 05:15 ABG pCO2 56 mmHg (35-45) H 12/30/18 05:15 ABG pO2 76 mmHg (85-104) L 12/30/18 05:15 ABG O2 Saturation 92 % (95-98) L 12/30/18 05:15 ABG Base Excess -3 mEq/L (-2 to 3) L 12/30/18 05:15 Chloride 110 mEq/L (98-107) H 12/31/18 04:10 Carbon Dioxide 22 mEq/L (23-29) L 12/31/18 04:10 BUN 92 mg/dL (8-23) H 12/31/18 04:10 Creatinine 2.94 mg/dL (0.60-1.20) H 12/31/18 04:10 Est GFR ( Amer) 20 (> 60) L 12/31/18 04:10 Est GFR (Non-Af Amer) 16 (> 60) L 12/31/18 04:10 BUN/Creatinine Ratio 31 (6-26) H 12/31/18 04:10 Glucose 107 mg/dL (70-105) H 12/31/18 04:10 POC Glucose 109 mg/dL (70-99) H 12/31/18 04:53 Calculated Osmolality 327 (280-300) H 12/31/18 04:10 Uric Acid 11.5 mg/dL (2.3-7.6) H 12/30/18 04:30 Phosphorus 6.2 mg/dL (2.7-4.5) H 12/28/18 04:35 AST 101 Units/L (13-39) H 12/27/18 02:20 ALT 255 Units/L (7-52) H 12/27/18 02:20 Lactate Dehydrogenase 380 Units/L (140-271) H 12/26/18 01:30 Troponin I 0.66 ng/mL (< 0.04) H* 12/29/18 00:20 B-Natriuretic Peptide 1332 pg/mL (Less than 100) H 12/23/18 15:36 Serum Total Protein 5.3 g/dL (6.4-8.9) L 12/27/18 02:20 Total Protein (PEP) 5.60 g/dL (6.00-8.30) L 12/25/18 16:09 Albumin 3.4 g/dL (3.5-5.7) L 12/27/18 02:20 Albumin (PEP) 3.21 g/dL (3.75-5.01) L 12/25/18 16:09 Globulin 1.9 g/dL (2.4-3.5) L 12/27/18 02:20 25-OH Vitamin D Total 13 ng/mL (30-80) L 12/25/18 15:54 PTH Intact 285.6 pg/ml (10.0-65.0) H 12/25/18 15:54 Urine Clarity Cloudy (Clear) A 12/29/18 13:45 Ur Specific Bend > 1.030 (1.010-1.025) H 12/29/18 13:45 Urine Protein 30 mg/dL (Neg-Trace) H 12/29/18 13:45 Urine Blood Trace (Negative) H 12/29/18 13:45 Urine Microscopic WBC 15-30 per hpf (0-3) H 12/29/18 13:45 Ur Squamous Epith Cells Many per lpf (None-Few) H 12/29/18 13:45 Amorphous Sediment Many (Few) H 12/26/18 17:25 IgG 665 mg/dL (768-1632) L 12/25/18 16:09 IgM 33 mg/dL (35-263) L 12/25/18 16:09 Complement C3 57 mg/dL (87-200) L 12/25/18 15:54 Complement C4 15 mg/dL (19-52) L 12/25/18 15:54 Free [place]app[place] LC, Quant 4.28 mg/dL (0.33-1.94) H 12/25/18 16:09 Free [place]/Lambda Ratio 1.76 (0.26-1.65) H 12/25/18 16:09 Hep Bs Antibody < 3.10 mIU/mL (10.00-) L 12/25/18 16:09 - Microbiology Findings Microbiology Findings: Microbiology, Last 48 Hours 12/29/18 11:11 Blood Culture - Preliminary Peripheral Venipuncture Culture is incubating and being continuously monitored for growth. Final report to follow. 12/29/18 11:11 Blood Culture - Preliminary Peripheral Venipuncture Culture is incubating and being continuously monitored for growth. Final report to follow. - Clinical Findings Intake & Output: Intake & Output 12/30/18 12/30/18 12/31/18 15:59 23:59 07:59 Intake Total 1570 / 1570 395 / 395 Output Total 100 / 100 Balance 1470 / 1470 395 / 395 Weight 95 kg Consult Discharge Plan - Plan Referrals: Michel Giron MD [Primary Care Provider] - <Ok Morales - Last Filed: 12/31/18 16:00> Date of Encounter: 12/31/18 Objective PUL Vital signs: Last Vital Signs Temp 98.0 F 12/31/18 08:39 Pulse 79 12/31/18 08:00 Resp 33 12/31/18 08:00 BP 120/72 12/31/18 08:00 Pulse Ox 88 12/31/18 08:00 Results - Laboratory Findings CBC and BMP: 12/31/18 04:10 12/31/18 04:10 ABG ABG pH 7.25 pH Units (7.32-7.45) L 12/30/18 05:15 ABG pCO2 56 mmHg (35-45) H 12/30/18 05:15 ABG pO2 76 mmHg (85-104) L 12/30/18 05:15 ABG O2 Saturation 92 % (95-98) L 12/30/18 05:15 PT/INR, D-dimer PT 14.2 Seconds (9.4-12.1) H 12/26/18 18:10 Abnormal lab findings: Abnormal lab results WBC 14.0 K/mcL (4.3-11.1) H 12/31/18 04:10 MCHC 30.4 g/dL (31.6-35.5) L 12/31/18 04:10 RDW 15.0 % (11.5-14.5) H 12/31/18 04:10 Plt Count 112 K/mcL (140-400) L 12/31/18 04:10 Neutrophils # 12.3 K/mcL (1.6-8.9) H 12/30/18 04:30 Lymphocytes # 0.2 K/mcL (0.6-4.6) L 12/30/18 04:30 Nucleated RBCs/100 WBC 0.4 /100 WBC (0) H 12/30/18 04:30 PT 14.2 Seconds (9.4-12.1) H 12/26/18 18:10 APTT 38.6 Seconds (26.0-36.0) H 12/23/18 15:36 ABG pH 7.25 pH Units (7.32-7.45) L 12/30/18 05:15 ABG pCO2 56 mmHg (35-45) H 12/30/18 05:15 ABG pO2 76 mmHg (85-104) L 12/30/18 05:15 ABG O2 Saturation 92 % (95-98) L 12/30/18 05:15 ABG Base Excess -3 mEq/L (-2 to 3) L 12/30/18 05:15 Chloride 110 mEq/L (98-107) H 12/31/18 04:10 Carbon Dioxide 22 mEq/L (23-29) L 12/31/18 04:10 BUN 92 mg/dL (8-23) H 12/31/18 04:10 Creatinine 2.94 mg/dL (0.60-1.20) H 12/31/18 04:10 Est GFR ( Amer) 20 (> 60) L 12/31/18 04:10 Est GFR (Non-Af Amer) 16 (> 60) L 12/31/18 04:10 BUN/Creatinine Ratio 31 (6-26) H 12/31/18 04:10 Glucose 107 mg/dL (70-105) H 12/31/18 04:10 POC Glucose 109 mg/dL (70-99) H 12/31/18 04:53 Calculated Osmolality 327 (280-300) H 12/31/18 04:10 Uric Acid 11.5 mg/dL (2.3-7.6) H 12/30/18 04:30 Phosphorus 6.2 mg/dL (2.7-4.5) H 12/28/18 04:35 AST 101 Units/L (13-39) H 12/27/18 02:20 ALT 255 Units/L (7-52) H 12/27/18 02:20 Lactate Dehydrogenase 380 Units/L (140-271) H 12/26/18 01:30 Troponin I 0.66 ng/mL (< 0.04) H* 12/29/18 00:20 B-Natriuretic Peptide 1332 pg/mL (Less than 100) H 12/23/18 15:36 Serum Total Protein 5.3 g/dL (6.4-8.9) L 12/27/18 02:20 Total Protein (PEP) 5.60 g/dL (6.00-8.30) L 12/25/18 16:09 Albumin 3.4 g/dL (3.5-5.7) L 12/27/18 02:20 Albumin (PEP) 3.21 g/dL (3.75-5.01) L 12/25/18 16:09 Globulin 1.9 g/dL (2.4-3.5) L 12/27/18 02:20 25-OH Vitamin D Total 13 ng/mL (30-80) L 12/25/18 15:54 PTH Intact 285.6 pg/ml (10.0-65.0) H 12/25/18 15:54 Urine Clarity Cloudy (Clear) A 12/29/18 13:45 Ur Specific Bend > 1.030 (1.010-1.025) H 12/29/18 13:45 Urine Protein 30 mg/dL (Neg-Trace) H 12/29/18 13:45 Urine Blood Trace (Negative) H 12/29/18 13:45 Urine Microscopic WBC 15-30 per hpf (0-3) H 12/29/18 13:45 Ur Squamous Epith Cells Many per lpf (None-Few) H 12/29/18 13:45 Amorphous Sediment Many (Few) H 12/26/18 17:25 IgG 665 mg/dL (768-1632) L 12/25/18 16:09 IgM 33 mg/dL (35-263) L 12/25/18 16:09 Complement C3 57 mg/dL (87-200) L 12/25/18 15:54 Complement C4 15 mg/dL (19-52) L 12/25/18 15:54 Free [place]app[place] LC, Quant 4.28 mg/dL (0.33-1.94) H 12/25/18 16:09 Free [place]/Lambda Ratio 1.76 (0.26-1.65) H 12/25/18 16:09 Hep Bs Antibody < 3.10 mIU/mL (10.00-) L 12/25/18 16:09 - Microbiology Findings Microbiology Findings: Microbiology, Last 48 Hours 12/29/18 11:11 Blood Culture - Preliminary Peripheral Venipuncture Culture is incubating and being continuously monitored for growth. Final report to follow. 12/29/18 11:11 Blood Culture - Preliminary Peripheral Venipuncture Culture is incubating and being continuously monitored for growth. Final report to follow. - Clinical Findings Intake & Output: Intake & Output 12/30/18 12/31/18 12/31/18 23:59 07:59 15:59 Intake Total 1570 / 1570 395 / 395 Output Total 100 / 100 Balance 1470 / 1470 395 / 395 Weight 95 kg - Attending Attestation I examined this patient and my medical decision-making was reviewed with the Resident Physician. I agree with the documented findings, disposition and treatment plan as described except to the extent set forth below. Patient seen and examined. Labs, radiology, chart personally reviewed. Agree with resident's history and physical, assessment, plan with following comments: DIRECTOR OF RESEARCH CENTER: Patient follows commands, Pulmonary: Acceptable oxygenation and ventilation, however patient is not been able to take any nutrition. Patient is not a good candidate for tracheostomy Cardiovascular: stable and treated for NSTEMI and stop heparin drip GI: Nutrition per dietary and GI prophylaxis per routine and palliative care consult to discuss nutrition with pt regarding PEG tube Heme: DVT prophylaxis per routine ID: Continue antibiotics and plan to de-escalation Renal; urine out put and renal function reviewed and slight Endorcine: blood glucose is monitored Lines: all lines checked and no evidence of infections Skin: skin care to prevent pressure ulcers per nursing routine care Overall prognosis is poor and palliative care is following.
[2018-12-31] MEDS: Insulin DETEMIR 100 UNIT/ML X5UNITS SQ SCH ×2 (08:06→21:25)
[2018-12-31] MEDS: Aspirin 81 MG TAB.CHEW PO SCH (08:06)
[2018-12-31] MEDS: Budesonide/Formoterol 80/4.5 MDI IH SCH ×2 (10:46→20:35)
--- NOTE | 2018-12-31 11:49 | Palliative Progress Note ---
Date of Encounter: 12/31/18 Time of Encounter: 10:15 - Assessment and plan (1) Goals of care, counseling/discussion Current Visit: Yes Status: Acute Assessment and plan: Discussed with patient further about GOC. Patient stated she wants to live and will do all the necessary for it. Discussed the fact that we are now unable to f eed her. offered options of comfort care, VS PEG tube placement. Patient stated she would like the PEG tube, if that can give her more time. She wants to continue BiPAP and would be agreeable to invasive ventilation and even trach if the need be. Patient made aware that none of these procedures will cure her underlying cancer. Patient remains DNRCCA, palliative care will continue to follow daily and discuss goals of care. (2) MARIE (acute kidney injury) Current Visit: Yes Status: Acute Assessment and plan: nephrology on the case, discussed SLIDE ATTENDANT with patient, she is agreeable. Creatinine continues to improve (3) Acute and chronic respiratory failure with hypoxia Current Visit: Yes Status: Acute Assessment and plan: Remains BiPAP dependent. was transferred to MICU for impending fatigue. So far patient is stable on the BiPAP. She is agreeable to intubation. 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 - Time Spent With Patient Total time spent is greater than 50% in coordination of care (as documented) at patient's floor/unit and/or counseling patient: - Subjective Interval history: Patient remains in BiPAP, and remains NPO. at the time of exam, patient is drowsy, but arousable. She states to be feeling fine on the BiPAP. No family member present. - Constitutional Vitals: Abnormal lab results WBC 14.0 K/mcL (4.3-11.1) H 12/31/18 04:10 MCHC 30.4 g/dL (31.6-35.5) L 12/31/18 04:10 RDW 15.0 % (11.5-14.5) H 12/31/18 04:10 Plt Count 112 K/mcL (140-400) L 12/31/18 04:10 Neutrophils # 12.3 K/mcL (1.6-8.9) H 12/30/18 04:30 Lymphocytes # 0.2 K/mcL (0.6-4.6) L 12/30/18 04:30 Nucleated RBCs/100 WBC 0.4 /100 WBC (0) H 12/30/18 04:30 PT 14.2 Seconds (9.4-12.1) H 12/26/18 18:10 APTT 38.6 Seconds (26.0-36.0) H 12/23/18 15:36 ABG pH 7.25 pH Units (7.32-7.45) L 12/30/18 05:15 ABG pCO2 56 mmHg (35-45) H 12/30/18 05:15 ABG pO2 76 mmHg (85-104) L 12/30/18 05:15 ABG O2 Saturation 92 % (95-98) L 12/30/18 05:15 ABG Base Excess -3 mEq/L (-2 to 3) L 12/30/18 05:15 Chloride 110 mEq/L (98-107) H 12/31/18 04:10 Carbon Dioxide 22 mEq/L (23-29) L 12/31/18 04:10 BUN 92 mg/dL (8-23) H 12/31/18 04:10 Creatinine 2.94 mg/dL (0.60-1.20) H 12/31/18 04:10 Est GFR ( Amer) 20 (> 60) L 12/31/18 04:10 Est GFR (Non-Af Amer) 16 (> 60) L 12/31/18 04:10 BUN/Creatinine Ratio 31 (6-26) H 12/31/18 04:10 Glucose 107 mg/dL (70-105) H 12/31/18 04:10 POC Glucose 109 mg/dL (70-99) H 12/31/18 04:53 Calculated Osmolality 327 (280-300) H 12/31/18 04:10 Uric Acid 11.5 mg/dL (2.3-7.6) H 12/30/18 04:30 Phosphorus 6.2 mg/dL (2.7-4.5) H 12/28/18 04:35 AST 101 Units/L (13-39) H 12/27/18 02:20 ALT 255 Units/L (7-52) H 12/27/18 02:20 Lactate Dehydrogenase 380 Units/L (140-271) H 12/26/18 01:30 Troponin I 0.66 ng/mL (< 0.04) H* 12/29/18 00:20 B-Natriuretic Peptide 1332 pg/mL (Less than 100) H 12/23/18 15:36 Serum Total Protein 5.3 g/dL (6.4-8.9) L 12/27/18 02:20 Total Protein (PEP) 5.60 g/dL (6.00-8.30) L 12/25/18 16:09 Albumin 3.4 g/dL (3.5-5.7) L 12/27/18 02:20 Albumin (PEP) 3.21 g/dL (3.75-5.01) L 12/25/18 16:09 Globulin 1.9 g/dL (2.4-3.5) L 12/27/18 02:20 25-OH Vitamin D Total 13 ng/mL (30-80) L 12/25/18 15:54 PTH Intact 285.6 pg/ml (10.0-65.0) H 12/25/18 15:54 Urine Clarity Cloudy (Clear) A 12/29/18 13:45 Ur Specific [place] > 1.030 (1.010-1.025) H 12/29/18 13:45 Urine Protein 30 mg/dL (Neg-Trace) H 12/29/18 13:45 Urine Blood Trace (Negative) H 12/29/18 13:45 Urine Microscopic WBC 15-30 per hpf (0-3) H 12/29/18 13:45 Ur Squamous Epith Cells Many per lpf (None-Few) H 12/29/18 13:45 Amorphous Sediment Many (Few) H 12/26/18 17:25 IgG 665 mg/dL (768-1632) L 12/25/18 16:09 IgM 33 mg/dL (35-263) L 12/25/18 16:09 Complement C3 57 mg/dL (87-200) L 03/14/19 15:54 Complement C4 15 mg/dL (19-52) L 12/25/18 15:54 Free [place] LC, Quant 4.28 mg/dL (0.33-1.94) H 12/25/18 16:09 Free [place]/Lambda Ratio 1.76 (0.26-1.65) H 12/25/18 16:09 Hep Bs Antibody < 3.10 mIU/mL (10.00-) L 12/25/18 16:09 Exam: Vitals: Reviewed General: Obese, Alert and oriented. In mild respiratory distress on BiPAP Skin: Normal color, no rash, no lesions. HEENT: EOM, pupils equal, round and reactive. Cardiovascular: RRR, normal S1 & S2, no rubs, murmurs or gallops. Lungs: scattered b/l wheezes, rales on the left lower lobe, crackles. Abdomen: Obese, soft, non-tender, no rigidity. Extremities: bilateral edema, No deformity, tenderness, no joint swelling or clubbing. Neurological: No focal deficit Palliative Quality Palliative Quality: Screen for Code Status: Yes, Screen for Goals of Care: Yes, Screen for Pain: Yes, If Pain Regimen Started, Initiate Bowel Regimen: NA, Screen for Nausea/Vomitting: Yes Code Status: 12/23/18 20:11 Resuscitation Status: Active [RES] Stat Comment: Resuscitation Status: Full Code 12/29/18 11:55 DNR [Resuscitation Status: Active] [RES] Routine Comment: State form completed; patient signed. Resuscitation Status: DNR-Comfort Care-Arrest - Labs CBC & Chem 7: 12/31/18 04:10 12/31/18 04:10 Labs: Laboratory Results - last 24 hr 12/25/18 12/28/18 12/28/18 16:09 11:31 18:18 WBC RBC Hgb Hct MCV MCH MCHC RDW Plt Count MPV Heparin Anti-Xa, Unfract Sodium Potassium Chloride Carbon Dioxide BUN Creatinine Est GFR ( Amer) Est GFR (Non-Af Amer) BUN/Creatinine Ratio Glucose POC Glucose 177 H 164 H Calculated Osmolality Calcium Prot Electrophor EER SEE NOTE Total Protein (PEP) 5.60 L Albumin (PEP) 3.21 L Magfb-5-Ribxibdww 0.40 Tmxzj-5-Frafdulpn 0.86 Beta Globulins 0.48 Gamma Globulins 0.65 PEP Interpretation SEE NOTE Serum Immunofix Reflex [place] Done IgG 665 L IgA 112 IgM 33 L 12/30/18 12/30/18 12/30/18 11:49 18:20 23:43 WBC RBC Hgb Hct MCV MCH MCHC RDW Plt Count MPV Heparin Anti-Xa, Unfract Sodium Potassium Chloride Carbon Dioxide BUN Creatinine Est GFR ( Amer) Est GFR (Non-Af Amer) BUN/Creatinine Ratio Glucose POC Glucose 106 H 104 H 119 H Calculated Osmolality Calcium Prot Electrophor EER Total Protein (PEP) Albumin (PEP) Lvexv-3-Dmjtgpkya Betog-9-Ayqwrjbkl Beta Globulins Gamma Globulins PEP Interpretation Serum Immunofix Reflex IgG IgA IgM 12/31/18 12/31/18 12/31/18 04:10 04:10 04:10 WBC 14.0 H RBC 4.16 Hgb 12.2 Hct 40.1 MCV 96.4 MCH 29.3 MCHC 30.4 L RDW 15.0 H Plt Count 112 L MPV 12.2 Heparin Anti-Xa, Unfract 0.63 Sodium 144 Potassium 4.5 Chloride 110 H Carbon Dioxide 22 L BUN 92 H Creatinine 2.94 H Est GFR ( Amer) 20 L Est GFR (Non-Af Amer) 16 L BUN/Creatinine Ratio 31 H Glucose 107 H POC Glucose Calculated Osmolality 327 H Calcium 8.6 Prot Electrophor EER Total Protein (PEP) Albumin (PEP) Zliwc-6-Pdpudfgor Mdvvd-3-Cxntbcdgm Beta Globulins Gamma Globulins PEP Interpretation Serum Immunofix Reflex IgG IgA IgM 12/31/18 04:53 WBC RBC Hgb Hct MCV MCH MCHC RDW Plt Count MPV Heparin Anti-Xa, Unfract Sodium Potassium Chloride Carbon Dioxide BUN Creatinine Est GFR ( Amer) Est GFR (Non-Af Amer) BUN/Creatinine Ratio Glucose POC Glucose 109 H Calculated Osmolality Calcium Prot Electrophor EER Total Protein (PEP) Albumin (PEP) Yfeww-9-Lvrrqybac Tctrf-3-Lphxealln Beta Globulins Gamma Globulins PEP Interpretation Serum Immunofix Reflex IgG IgA IgM - ABG Interpretation ABG results: ABG ABG pH 7.25 pH Units (7.32-7.45) L 12/30/18 05:15 ABG pCO2 56 mmHg (35-45) H 12/30/18 05:15 ABG pO2 76 mmHg (85-104) L 12/30/18 05:15 ABG O2 Saturation 92 % (95-98) L 12/30/18 05:15 PT/INR, D-dimer PT 14.2 Seconds (9.4-12.1) H 12/26/18 18:10 Palliative Scale - Palliative Performance Scale How ambulatory is this patient?: Mainly in bed What is patient's level of activity and evidence of disease?: Unable to do any work, Extensive disease How much self-care assistance does patient require?: Considerable assistance required How much oral intake does the patient have?: Mouth care only What is this patient's level of consciousness?: Full Palliative Performance Score: 40 % Consult Discharge Plan - Plan Referrals: Michel Giron MD [Primary Care Provider] -
[2018-12-31] MEDS: Piperacillin/Tazobactam 3.375 GM in 0.9 % Sodium Chloride Mini Bag 100 ML IVPB SCH (11:56)
[2018-12-31] MEDS: 0.9 % Sodium Chloride 1,000 ML IVC SCH (14:01)
--- NOTE | 2018-12-31 16:03 | Oncology Inp Progress Note ---
<Cari Solomon S - Last Filed: 12/31/18 18:16> Date of Encounter: 12/31/18 (1) MARIE (acute kidney injury) Current Visit: Yes Status: Acute (2) Acute and chronic respiratory failure with hypoxia Current Visit: Yes Status: Acute (3) Lung cancer Current Visit: Yes Status: Acute Oncology: Obj Data - Labs CBC & Chem 7: 12/31/18 04:10 12/31/18 04:10 Consult Discharge Plan - Plan Referrals: Michel Giron MD [Primary Care Provider] - Inpatient Charges Provider: Dr. Saloni Solomon Follow up - Inpatient: [id number] - Attending Attestation I examined this patient and my medical decision-making was reviewed with the [facility] Nurse Linda blunt. I agree with the documented findings, disposition and treatment plan as described except to the extent set forth below. 1. Acute respiratory failure. Overall her breathing is better on BiPAP. She is able to tolerate up to an hour without BiPAP. She is also getting slightly hungry CT chest showed decreasing bilateral effusions. Right upper lobe lung mass and small mediastinal adenopathy essentially stable 2. Acute kidney injury. Creatinine mildly improved to 2.95 from 3.1 she is also more alert. 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 Status post concurrent chemoradiotherapy to the lung/glottic larynx with weekly cisplatin/paclitaxel x6 doses completed 09/03/2018. Chemotherapy course was abbreviated secondary to patient noncompliance. She was noted to have persistent disease involving the primary as well as mediastinal lymph nodes by PET/CT 11/26/2018 and recommended to start palliative intent dose attenuated carboplatin, abraxane and pembrolizumab initiated 12/23/2018. Recommended to present to ER following treatment for hypoxia and hypotension. CTA which noted interval increase in size of the right apical mass compared to 09/26/2018, septal thickening in the right lung which could represent lymphangitic metastasis or a component of asymmetric pulmonary edema, New right- sided pleural effusion, scattered bilateral airspace disease likely represents superimposed pneumonia, negative for PE. Plan: Patient continues to be bipap dependant Reviewed repeat CT chest- Stable 3.0 x 2.7 cm right apical mass. Adjacent small nodular densities at the right lung apex could represent intrapulmonary metastasis. Adjacent interlobular septal thickening has increased from the prior exam, and could be related to asymmetric pulmonary edema versus lymphangitic spread of tumor. Trace left pleural effusion is decreased from the prior exam. The right pleural effusion seen on prior CT has resolved. Hypoxia likely multifactorial secondary infection/PNA vs. COPD vs. HF co mplicated by known lung malignancy vs. lymphangitic spread of tumor Her overall prognosis is poor, she is not a good candidate for further chemotherapy even if clinical condition would improve, patient and family agree that they do not wish to pursue any further chemotherapy/immunotherapy The hospice philosophy was again discussed with family, patient refused to discuss idea of hospice At this time, oncology will plan to sign off, should we be needed for further questions or family discussions please feel free to reach out. Appreciate continued assistance from Pulmonology and Palliative Care Teams regarding her goals of care. (2) Squamous cell carcinoma of lung Current Visit: Yes Status: Chronic Assessment and plan: As above Qualifiers: Laterality: right Qualified Code(s): C34.91 - Malignant neoplasm of unspecified part of right bronchus or lung (3) Elevated troponin Current Visit: Yes Status: Acute Assessment and plan: Cardiology consulted for concern for NSTEMI Currently denies chest pain Recommend echo and medical management, currently on heparin gtt BNP level elevated at 1332-Unable to diurese secondary to acute kidney injury. Echo 09/26/18 revealed LVEF 50-55%, CT chest revealed right-sided pleural effusion--- 2/2 CHF vs. infection vs. malignancy Cardiology does not recommend LHC due to MARIE and patients inability to tolerate laying flat-signed off (4) MARIE (acute kidney injury) Current Visit: Yes Status: Acute Assessment and plan: Creatinine slightly better today at 3.05, GFR 16 Plan: Nephrology consulted and following-they have discussed goals of care in regards to AIR CARRIER MAINTENANCE INSPECTOR at length, patient considering AIR CARRIER MAINTENANCE INSPECTOR if necessary Oncology: Subj Interval history: Ms. Kumar is resting in bed. Her daughter and sister are at bedside. We had a long and detailed discussion regarding her goals of care. Following discussion with treating oncologist, she has tolerated treatments poorly, and even if she is able to make meaningful recovery, further treatment would likely be of more risk than benefit. Patient and family agree, and state that they have already decided not to pursue further chemo/immunotherapy. Discussed the hospice philosophy, patients family appeared to initially be on board with hospice, however, patient is refusing to discuss hospice options further, I was asked to stop talking about hospice and to not mention any further. - Constitutional General appearance: cooperative, no acute distress, no febrile Exam: appears uncomfortable. on continuous bipap. - Head Head exam: Present: atraumatic - Respiratory Respiratory exam: Present: decreased breath sounds, wheezes. Absent: respiratory distress - Cardiovascular Cardiovascular exam: Present: RRR, +S1, +S2 - GI/Abdominal GI/Abdominal exam: Present: normal bowel sounds, soft. Absent: tenderness - Extremities Exam Extremities exam: Present: normal inspection. Absent: calf tenderness - Neurological Exam Neurological exam: Present: alert, no focal deficits - Psychiatric Psychiatric exam: Present: anxious - Skin Skin exam: Present: dry, intact, pallor, warm Oncology: Obj Data - Labs CBC & Chem 7: 12/31/18 04:10 01/01/19 04:30 Inpatient Charges Provider: Dr. Saloni Solomon
[2018-12-31] MEDS: *HR* Heparin 5,000 UNIT/ML VIAL SQ SCH (18:24)
[2018-12-31] MEDS: Ipratropium/Albuterol Neb 3 ML IH PRN (20:44)
--- NOTE | 2018-12-31 23:36 | Nephrology Progress Note ---
Date of Encounter: 12/31/18 Time of Encounter: 12:00 - Assessment and Plan (1) MARIE (acute kidney injury) Current Visit: Yes Status: Acute SCr slightly better again today at 2.94, GFR 16 No acute indication for ART CLASS MODEL at this time but pt wants to survive as long as possible and wants ART CLASS MODEL if necessary UOP not able to be adequately documented as pt is wearing depends with regularly urine soaked underwear Continue to avoid nephrotoxins if possible Continue IVF for now (2) Acute and chronic respiratory failure with hypoxia Current Visit: Yes Status: Acute Per primary team on intermittent biPAP (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 per oncology (4) NSTEMI (non-ST elevated myocardial infarction) Current Visit: Yes Status: Acute cardiology signed off, LHC would be problematic given cancer diagnosis and MARIE (5) Squamous cell carcinoma of lung Current Visit: Yes Status: Chronic oncology signed off, no more chemo at this time Qualifiers: Laterality: right Qualified Code(s): C34.91 - Malignant neoplasm of unspecified part of right bronchus or lung Subjective Principal diagnosis: SOB Interval history: Pt seen and examined remains on biPAP continously with family at bedside: daughter. s/p CT chest with results noted. Pt remains NPO and wants to get PEG tube Objective - Vital Signs Vital signs: Vital Signs Temp Pulse Resp BP Pulse Ox 12/31/18 22:57 81 26 122/98 87 12/31/18 22:00 79 26 105/67 89 12/31/18 21:00 80 21 90/65 90 12/31/18 20:39 27 116/76 88 12/31/18 20:00 97.2 F L 12/31/18 19:45 85 29 103/60 87 12/31/18 19:00 81 28 95/57 91 12/31/18 18:00 77 20 83/49 93 12/31/18 17:00 79 20 101/52 93 12/31/18 16:00 97.6 F 76 34 92/53 91 12/31/18 15:04 27 98/73 94 12/31/18 15:00 72 21 98/73 95 12/31/18 14:06 78 27 112/75 91 12/31/18 13:00 76 25 102/70 91 12/31/18 12:27 97.5 F L 12/31/18 12:00 97.5 F L 73 28 99/62 91 12/31/18 11:00 75 32 88/74 95 12/31/18 10:46 29 93/51 90 12/31/18 10:00 74 25 93/51 88 12/31/18 09:00 84 25 87/63 88 12/31/18 08:39 98.0 F 12/31/18 08:00 98 F 79 30 120/72 89 12/31/18 07:00 79 30 93/61 89 12/31/18 06:00 78 30 106/57 89 12/31/18 05:00 77 24 94/55 89 12/31/18 04:00 72 23 104/64 90 12/31/18 03:33 96.4 F L 12/31/18 03:21 27 107/63 91 12/31/18 03:00 78 29 107/63 90 12/31/18 02:00 74 21 106/74 90 12/31/18 01:00 72 28 106/84 91 12/31/18 00:40 25 100/71 90 12/31/18 00:19 97.4 F L 12/31/18 00:00 78 28 100/71 90 Intake and Output 12/31/18 12/31/18 12/31/18 07:59 15:59 23:59 Intake Total 395 / 395 1195 / 1195 100 / 100 Balance 395 / 395 1195 / 1195 100 / 100 Intake: IV Fluids 155 / 155 1195 / 1195 100 / 100 0.9 % Sodium Chloride 1,000 ML 1000 / 1000 @ 50 mls/hr IVC .Q20H NANCY Rx#: [id number] Heparin 25,000 UNIT/250 ML D5W 55 / 55 195 / 195 25,000 unit In 250 ml @ 14 UNIT /KG/HR 12.39 mls/hr IVC . [id number] NANCY Rx#:[id number] Zosyn 3.375 GM In 0.9 % Sodium 100 / 100 100 / 100 Chloride (Mini-Bag +) 100 ML @ 25 mls/hr IVPB Q12H NANCY Rx#: [id number] Oral 240 / 240 Other: Stool Size Small Large Large Stool Consistency loose loose loose Stool Characteristics Tarry Tarry Tarry Stool Color Black Black Black # Voids 1 # Urine Diapers 1 1 # Bowel Movements 1 1 # Bowel Movement Diapers 1 Weight 95 kg Blood Glucose* 119 117 92 Patient Weight 12/31/18 23:59 Weight 95 kg - Lab 12/31/18 04:10 12/31/18 04:10 Most recent lab results ABG pH 7.25 pH Units (7.32-7.45) L 12/30/18 05:15 ABG pCO2 56 mmHg (35-45) H 12/30/18 05:15 ABG pO2 76 mmHg (85-104) L 12/30/18 05:15 ABG HCO3 25 mEq/L (21-27) 12/30/18 05:15 ABG O2 Saturation 92 % (95-98) L 12/30/18 05:15 Calcium 8.6 mg/dL (8.6-10.3) 12/31/18 04:10 Phosphorus 6.2 mg/dL (2.7-4.5) H 12/28/18 04:35 Magnesium 2.4 mg/dL (1.6-2.6) 12/28/18 04:35 Urine Creatinine 131 mg/dL 12/26/18 17:25 Urine Sodium 17.2 mEq/L 12/26/18 17:25 Consult Discharge Plan - Plan Referrals: Michel Giron MD [Primary Care Provider] -
[2019-01-01] MEDS: Insulin LISPRO 300 UNITS/3 ML VIAL SQ SCH ×5 (00:19→23:36)
[2019-01-01] MEDS: Piperacillin/Tazobactam 3.375 GM in 0.9 % Sodium Chloride Mini Bag 100 ML IVPB SCH ×3 (00:20→23:34)
[2019-01-01 04:36] LABS: ABG Base Excess -7 mEq/L (-2 to 3); ABG HCO3 22 mEq/L (21-27); ABG Oxygen Saturation 82 % (95-98); ABG PCO2 54 mmHg (35-45); ABG PH 7.21 pH Units (7.32-7.45); ABG PO2 56 mmHg (85-104); ABG TCO2 23 mEq/L (20-26); Blood Gas Modality Avaps; Blood Gas PEEP 10 cm H2O; Blood Gas Respiration Rate 14; Blood Gas VT 550 cc
[2019-01-01 05:17] LABS: Calcium 8.6 mg/dL (8.6-10.3); Potassium 4.5 mEq/L (3.5-5.1)
[2019-01-01] MEDS: MethylPREDNISolone 40 MG/ML VIAL IVP SCH ×2 (05:54→18:18)
[2019-01-01] MEDS: *HR* Heparin 5,000 UNIT/ML VIAL SQ SCH ×2 (05:54→18:17)
[2019-01-01] MEDS: Budesonide/Formoterol 80/4.5 MDI IH SCH ×2 (07:28→22:18)
[2019-01-01] MEDS: Insulin DETEMIR 100 UNIT/ML X5UNITS SQ SCH (07:51)
[2019-01-01] MEDS: Aspirin 81 MG TAB.CHEW PO SCH (07:56)
--- NOTE | 2019-01-01 08:01 | Internal Med Progress Note ---
Hospitalist Progress Note - Encounter Date of Encounter: 01/01/19 Time of Encounter: 07:40 - Subjective Interval History: Patient seen and examined at bedside. Ms. Kumar is on continuous BiPaP and was unable to converse with me. She was able to nod her head and tell me that she feels about the same as she did yesterday. When asked about her breathing, she motioned her hand to tell me that it is the same as before. She denied any pain anywhere in her body. She currently denies CP, nausea, vomiting, fever, diarrhea, numbness, tingling. - Exam Vitals: Temp Pulse Resp BP Pulse Ox 96.0 F L 75 22 113/82 90 01/01/19 07:43 01/01/19 07:00 01/01/19 07:28 01/01/19 07:00 01/01/19 07:28 Exam: General: Alert and oriented, in no acute distress Skin: no rash, no lesions HEENT: EOMI , pupils equal, round and reactive. Cardiovascular: RRR, no rubs, murmurs or gallops. Lungs: scattered b/l wheezes, rales on the left lower lobe, crackles throughout the posterior lung montero, using accessory muscles. Abdomen: soft, non-tender, no rigidity, no palpable masses Extremities: No deformity noted, peripheral edema present, no calf tenderness, no joint swelling or clubbing. Neurological: No focal deficit, follows commands skin: multiple ecchymosis on bilateral upper extremities, no rashes, no lesions - Assessment and Plan (1) Acute and chronic respiratory failure with hypoxia Current Visit: Yes Status: Acute (2) Acute renal failure Current Visit: Yes Status: Acute (3) Sepsis Current Visit: Yes Status: Acute (4) NSTEMI (non-ST elevated myocardial infarction) Current Visit: Yes Status: Acute (5) Squamous cell carcinoma of lung Current Visit: Yes Status: Chronic (6) (HFpEF) heart failure with preserved ejection fraction Current Visit: Yes Status: Acute (7) Elevated blood uric acid level Current Visit: Yes Status: Acute (8) Diabetes mellitus Current Visit: Yes Status: Chronic (9) Essential hypertension Current Visit: Yes Status: Chronic (10) Vitamin D deficiency Current Visit: Yes Status: Acute - Time Spent with Patient Total time spent is greater than 50% in coordination of care (as documented) at patient's floor/unit and/or counseling patient: Internal Medicine: Result - Labs CBC & Chem 7: 12/31/18 04:10 01/01/19 04:30 Labs: BMP 01/01/19 04:30 Sodium 144 Potassium 4.5 Chloride 109 H Carbon Dioxide 19 L BUN 102 H Creatinine 3.12 H Glucose 72 Calcium 8.6 - ABG Interpretation ABG results: ABG ABG pH 7.21 pH Units (7.32-7.45) L 01/01/19 04:34 ABG pCO2 54 mmHg (35-45) H 01/01/19 04:34 ABG pO2 56 mmHg (85-104) L 01/01/19 04:34 ABG O2 Saturation 82 % (95-98) L 01/01/19 04:34 PT/INR, D-dimer PT 14.2 Seconds (9.4-12.1) H 12/26/18 18:10 - Impressions Impressions Chest CT 12/31/18 11:00 IMPRESSION: 1. Stable 3.0 x 2.7 cm right apical mass. Adjacent small nodular densities at the right lung apex could represent intrapulmonary metastasis. Adjacent interlobular septal thickening has increased from the prior exam, and could be related to asymmetric pulmonary edema versus lymphangitic spread of tumor. 2. Trace left pleural effusion is decreased from the prior exam. Residual left basilar atelectasis and/or consolidation is present. The right pleural effusion seen on prior CT has resolved. 3. Unchanged enlarged right paratracheal lymph node, suspicious for metastasis. 4. Mucoid debris in the right-sided bronchi appear unchanged, although motion artifact limits evaluation. 5. Small amount of ascites and diffuse body wall anasarca is unchanged. D/ : / 12/31/2018 12:10:24 Khanh Marie MD / Toyin Wesley Interpreting Provider: Khanh Marie MD Consult Discharge Plan - Plan Referrals: Michel Giron MD [Primary Care Provider] - (2) Acute renal failure Qualifiers: Acute renal failure type: unspecified Qualified Code(s): N17.9 - Acute kidney failure, unspecified (3) Sepsis Qualifiers: Sepsis type: sepsis due to unspecified organism Qualified Code(s): A41.9 - Sepsis, unspecified organism (5) Squamous cell carcinoma of lung Qualifiers: Laterality: right Qualified Code(s): C34.91 - Malignant neoplasm of unspecified part of right bronchus or lung (6) (HFpEF) heart failure with preserved ejection fraction Qualifiers: Heart failure chronicity: acute on chronic Qualified Code(s): I50.33 - Acute on chronic diastolic (congestive) heart failure (8) Diabetes mellitus Qualifiers: Diabetes mellitus type: type 2 Diabetes mellitus buttermaker continuous churn insulin use: with buttermaker continuous churn use Diabetes mellitus complication status: with unspecified complications Qualified Code(s): E11.8 - Type 2 diabetes mellitus with unspecified complications; Z79.4 - care home (current) use of insulin
[2019-01-01] MEDS ORDERED: Ringers Solution, Lactated 1,000 ML IVC SCH (08:15)
--- NOTE | 2019-01-01 08:20 | Internal Med Progress Note ---
Hospitalist Progress Note - Encounter Date of Encounter: 01/01/19 - Exam Vitals: Temp Pulse Resp BP Pulse Ox 96.0 F L 78 22 113/82 90 01/01/19 07:43 01/01/19 08:00 01/01/19 07:28 01/01/19 07:00 01/01/19 07:28 - Time Spent with Patient Total time spent is greater than 50% in coordination of care (as documented) at patient's floor/unit and/or counseling patient: Internal Medicine: Result - Labs CBC & Chem 7: 12/31/18 04:10 01/01/19 04:30 Labs: BMP 01/01/19 04:30 Sodium 144 Potassium 4.5 Chloride 109 H Carbon Dioxide 19 L BUN 102 H Creatinine 3.12 H Glucose 72 Calcium 8.6 - ABG Interpretation ABG results: ABG ABG pH 7.21 pH Units (7.32-7.45) L 01/01/19 04:34 ABG pCO2 54 mmHg (35-45) H 01/01/19 04:34 ABG pO2 56 mmHg (85-104) L 01/01/19 04:34 ABG O2 Saturation 82 % (95-98) L 01/01/19 04:34 PT/INR, D-dimer PT 14.2 Seconds (9.4-12.1) H 12/26/18 18:10 - Impressions Impressions Chest CT 12/31/18 11:00 IMPRESSION: 1. Stable 3.0 x 2.7 cm right apical mass. Adjacent small nodular densities at the right lung apex could represent intrapulmonary metastasis. Adjacent interlobular septal thickening has increased from the prior exam, and could be related to asymmetric pulmonary edema versus lymphangitic spread of tumor. 2. Trace left pleural effusion is decreased from the prior exam. Residual left basilar atelectasis and/or consolidation is present. The right pleural effusion seen on prior CT has resolved. 3. Unchanged enlarged right paratracheal lymph node, suspicious for metastasis. 4. Mucoid debris in the right-sided bronchi appear unchanged, although motion artifact limits evaluation. 5. Small amount of ascites and diffuse body wall anasarca is unchanged. D/ /31/2018 12:10:24 Khanh Marie MD / Toyin Wesley Interpreting Provider: Khanh Marie MD Consult Discharge Plan - Plan Referrals: Michel Giron MD [Primary Care Provider] -
--- NOTE | 2019-01-01 10:17 | Pulmonology Progress Note ---
<Ok Morales M - Last Filed: 01/01/19 16:21> Date of Encounter: 01/01/19 Objective PUL Vital signs: Last Vital Signs Temp 96.0 F L 01/01/19 07:43 Pulse 74 01/01/19 09:00 Resp 24 01/01/19 09:00 BP 107/54 01/01/19 09:00 Pulse Ox 92 01/01/19 09:00 Results - Laboratory Findings CBC and BMP: 12/31/18 04:10 01/01/19 04:30 ABG ABG pH 7.21 pH Units (7.32-7.45) L 01/01/19 04:34 ABG pCO2 54 mmHg (35-45) H 01/01/19 04:34 ABG pO2 56 mmHg (85-104) L 01/01/19 04:34 ABG O2 Saturation 82 % (95-98) L 01/01/19 04:34 PT/INR, D-dimer PT 14.2 Seconds (9.4-12.1) H 12/26/18 18:10 Abnormal lab findings: Abnormal lab results WBC 14.0 K/mcL (4.3-11.1) H 12/31/18 04:10 MCHC 30.4 g/dL (31.6-35.5) L 12/31/18 04:10 RDW 15.0 % (11.5-14.5) H 12/31/18 04:10 Plt Count 112 K/mcL (140-400) L 12/31/18 04:10 Neutrophils # 12.3 K/mcL (1.6-8.9) H 12/30/18 04:30 Lymphocytes # 0.2 K/mcL (0.6-4.6) L 12/30/18 04:30 Nucleated RBCs/100 WBC 0.4 /100 WBC (0) H 12/30/18 04:30 PT 14.2 Seconds (9.4-12.1) H 12/26/18 18:10 APTT 38.6 Seconds (26.0-36.0) H 12/23/18 15:36 Heparin Anti-Xa, Unfract 0.00 IU/mL (0.30-0.70) L 01/01/19 04:30 ABG pH 7.21 pH Units (7.32-7.45) L 01/01/19 04:34 ABG pCO2 54 mmHg (35-45) H 01/01/19 04:34 ABG pO2 56 mmHg (85-104) L 01/01/19 04:34 ABG O2 Saturation 82 % (95-98) L 01/01/19 04:34 ABG Base Excess -7 mEq/L (-2 to 3) L 01/01/19 04:34 Chloride 109 mEq/L (98-107) H 01/01/19 04:30 Carbon Dioxide 19 mEq/L (23-29) L 01/01/19 04:30 BUN 102 mg/dL (8-23) H 01/01/19 04:30 Creatinine 3.12 mg/dL (0.60-1.20) H 01/01/19 04:30 Est GFR ( Amer) 18 (> 60) L 01/01/19 04:30 Est GFR (Non-Af Amer) 15 (> 60) L 01/01/19 04:30 BUN/Creatinine Ratio 33 (6-26) H 01/01/19 04:30 Calculated Osmolality 328 (280-300) H 01/01/19 04:30 Uric Acid 11.5 mg/dL (2.3-7.6) H 12/30/18 04:30 Phosphorus 6.2 mg/dL (2.7-4.5) H 12/28/18 04:35 AST 101 Units/L (13-39) H 12/27/18 02:20 ALT 255 Units/L (7-52) H 12/27/18 02:20 Lactate Dehydrogenase 380 Units/L (140-271) H 12/26/18 01:30 Troponin I 0.66 ng/mL (< 0.04) H* 12/29/18 00:20 B-Natriuretic Peptide 1332 pg/mL (Less than 100) H 12/23/18 15:36 Serum Total Protein 5.3 g/dL (6.4-8.9) L 12/27/18 02:20 Total Protein (PEP) 5.60 g/dL (6.00-8.30) L 12/25/18 16:09 Albumin 3.4 g/dL (3.5-5.7) L 12/27/18 02:20 Albumin (PEP) 3.21 g/dL (3.75-5.01) L 12/25/18 16:09 Globulin 1.9 g/dL (2.4-3.5) L 12/27/18 02:20 25-OH Vitamin D Total 13 ng/mL (30-80) L 12/25/18 15:54 PTH Intact 285.6 pg/ml (10.0-65.0) H 12/25/18 15:54 Urine Clarity Cloudy (Clear) A 12/29/18 13:45 Ur Specific [place] > 1.030 (1.010-1.025) H 12/29/18 13:45 Urine Protein 30 mg/dL (Neg-Trace) H 12/29/18 13:45 Urine Blood Trace (Negative) H 12/29/18 13:45 Urine Microscopic WBC 15-30 per hpf (0-3) H 12/29/18 13:45 Ur Squamous Epith Cells Many per lpf (None-Few) H 12/29/18 13:45 Amorphous Sediment Many (Few) H 12/26/18 17:25 IgG 665 mg/dL (768-1632) L 12/25/18 16:09 IgM 33 mg/dL (35-263) L 12/25/18 16:09 Complement C3 57 mg/dL (87-200) L 12/25/18 15:54 Complement C4 15 mg/dL (19-52) L 12/25/18 15:54 Free [place] LC, Quant 4.28 mg/dL (0.33-1.94) H 12/25/18 16:09 Free [place]/Lambda Ratio 1.76 (0.26-1.65) H 12/25/18 16:09 Hep Bs Antibody < 3.10 mIU/mL (10.00-) L 12/25/18 16:09 - Clinical Findings Intake & Output: Intake & Output 12/31/18 01/01/19 01/01/19 23:59 07:59 15:59 Intake Total 100 / 100 150 / 150 980 / 980 Balance 100 / 100 150 / 150 980 / 980 Weight 97.1 kg Consult Discharge Plan - Plan Referrals: Michel Giron MD [Primary Care Provider] - - Attending Attestation I examined this patient and my medical decision-making was reviewed with the Resident Physician. I agree with the documented findings, disposition and treatment plan as described except to the extent set forth below. Patient seen and examined. Labs, radiology, chart personally reviewed. Agree with resident's history and physical, assessment, plan with following comments: CEREAL MILLER: Patient follows commands, Pulmonary: Acceptable oxygenation and ventilation on the noninvasive ventilation. Cardiovascular: stable GI: Nutrition per dietary and GI prophylaxis per routine Heme: DVT prophylaxis per routine ID: Continue antibiotics and plan to de-escalation Renal; urine out put and renal funtion reviewed Endorcine: blood glucose is monitored Lines: all lines checked and no evidence of infections Skin: skin care to prevent pressure ulcers per nursing routine care I had a family meeting in the presence of the nurse with all the family members at the bedside as well as patient is awake and oriented and we had to discuss the fact that patient remained to be BiPAP dependent and is very limited or not able to feed patient because of the risk of aspiration as well as hypoxia. I have explained to them in detail that she is not a candidate for tracheostomy and she is very high risk for procedures that she will need to be intubated and after that is unknown whether she will come off the ventilator and they understand that. The option of PEG tube was discussed, even though it is not ideal but because of the lack of nutrition this was discussed and patient as well as family they want to proceed. We will consult surgery for their opinion about this. We also had discussed about TPN, but because of the risk of infection as well as this is not ideal especially with volume overload they understand that. Palliative care has been on board as well. It has been difficult for the family to accept this poor prognosis and will continue supportive care at this time. 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 latest ABG : Ph 7.25, Pco2 56, Po2 76, Hco3 25 ,Feeling a little bit comfortable with Bipap. Plan : Continue antibitics for Pneumonia X toady 8th day for Zocyn. Continue Bi pap Continue IV Solu Medrol, Nebulization for bronchospsm and Bronchial inflamation. Cautious diuresis for pulmonary congestion, BUN and creatinine are still high Check ABG tomorrow as well. Oncology team on loop. (2) Pneumonia Current Visit: Yes Status: Acute The patient presented for shortness of breath with hypoxia CTA chest showed;There is a slightly larger mass in the right upper lobe of the lung, concerning for malignancy with stable metastatic mediastinal lymph nodes. Moderate right and mild left pleural effusions, increased in size on the left, with associated atelectasis in the lungs.Thickened secretions in the lower lobe bronchi which may be related to aspiration versus mucous plugging Blood and sputum culture; preliminary report no growth, final report awaited Urine Legionella antigen and Streptococcus pneumoniae antigen positive Patient is on IV antibiotic Zosyn Plan :continue Zyocin : IV antibitics for total 10 days( today 8th day ) Wait and watch sputum culture report : final one Continue Duoneb nebulization and Solumedrol for airway inflammation and bronchospsm Continue Bipap. . Qualifiers: Pneumonia type: due to unspecified organism Laterality: right Lung location: lower lobe of lung Qualified Code(s): J18.1 - Lobar pneumonia, unspecified organism (3) Non-small cell lung cancer Current Visit: No Status: Chronic Patient is a chronic patient of squamous cell carcinoma of lung stage III, last chemotherapy was in 2017 she received new chemo for Ca lung ,only one infusion of chemotherapy on 12/23/18, Keytruda (pembrolizumab). Oncology consultation has been done, appreciate recommendation Palliative care consultation has been requested. palliative care consultation note : Patient and family concluded that patient wanted to continue to "live as long as possible" and they will do anything she agrees to. Patient remains DNRCCA, palliative care will continue to follow and discuss goals of care. Qualifiers: Laterality: unspecified laterality Qualified Code(s): C34.90 - Malignant neoplasm of unspecified part of unspecified bronchus or lung (4) (HFpEF) heart failure with preserved ejection fraction Current Visit: Yes Status: Acute The patient's echocardiography showed his ejection fraction; 4045 percent with moderate left ventricular hypertrophy and moderate left ventricular diastolic dysfunction with dilated left ventricle. Recent chest x-ray showed mild congestion with atelectasis at Right side. Plan : Strict intake and output Weight dailly Cautious diuresis for pulmonary condition, BUN and creatinine are still elevated Reduced fluid intake. Qualifiers: Heart failure chronicity: unspecified Qualified Code(s): I50.30 - Unspecified diastolic (congestive) heart failure (5) Essential hypertension Current Visit: Yes Status: Chronic Is a chronic patient of hypertension under medication Hypertension blood pressure is 110/55 He was taking metoprolol 12.5 MG twice a day, it is on hold because of hypertension (6) Pleural effusion Current Visit: Yes Status: Acute Patient has minimal bilateral pleural effusion, seen in CTA chest. It was very minimal on latest x-ray done today. Resolving with IV antibiotics. (7) NSTEMI (non-ST elevated myocardial infarction) Current Visit: Yes Status: Acute elevated troponin levels 0.13 --> 1.28--> 3.81 in the setting of acute kidney injury and acute respiratory failure EKG revealed sinus rhythm with intraventricular conduction delay. Cardiology team recommended :Continue medical management. Do not recommend LHC at this time due to worsening renal function and inability to lay flat. Heparin drip has been discontinued . Subjective Principal diagnosis: SOB Interval history: 63 year old female with PMH of diabetic ,diastolic heart failure, COPD with pHTN and chronic hypoxic respiratory failure on 4L home oxygen who is currently being managed for stage III squamous cell carcinoma of the right upper lobe of the lung status post concurrent chemoradiotherapy completed 09/03/2018 which was abbreviated secondary to patient noncompliance but has persistent disease. she received only one infusion of new chemotherapy on 12/23/18, Keytruda (pembrolizumab). Brought to ER for being more hypoxic than her baseline, found to be 85% on 4L and also hypotensive. Placed on Bipap support. As per her family member note ,she frequently gets more short of breath and hypoxic with physical exertion .CTA was done and ruled out PE but there is an increase in size in the right sided pleural effusion as well as enlargement in her right apical lesion. She reported feeling fatigued, occasionally having chills but no fever and states that her cough is chronic productive of whitish sputum. She was in inpatient since 0 12/23 and she was transferred to ICU for increased shortness of breath with hypoxia. Today, during my bedside visit the patient was awake, oriented , was in respira tory distress but a little bit more comfortable with the BiPAP. Vitals; 98, pulse 74, blood pressure 93/51 saturation 88% FiO2 60. Latest ABG shows on radial artery : ph 7.21, PCO2 54,PO2 56 bicarbonate 23, base excess -7. Troponin trending down from 2.85-0.66. Multidisciplinary team including palliative care, nephrology, oncology, cardiology on board. We are assessing her condition closely, will assess her ABG and how she does with BiPAP. licensing specialist has been following up her for goal of care regarding intubation, dialyzes. We along with energy conservation specialist are planning to discuss with her family members/daughter . Cardiac team and oncology team has signed off as they are not going to do acute intervention.Nephrology team is on board and they will review today; today her creatinine 3.12 and BUN 102 GFR 18. Today we discussed with her and her family regarding further goal of care, she is willing to go for hospice care, she requested for placement of feeding tube/ PEG tube, so we consulted general surgery for further evaluation and intervention. Surgery team consulted her today and aren't going to put PEG tube as she is not a candidate for intubation and anaesthesia , patient and family member understands that. Objective PUL Vital signs: Last Vital Signs Temp 96.0 F L 01/01/19 07:43 Pulse 74 01/01/19 09:00 Resp 24 01/01/19 09:00 BP 107/54 01/01/19 09:00 Pulse Ox 92 01/01/19 09:00 General appearance: appears uncomfortable Eyes: nonicteric ENT: oropharynx moist Effort: mildly labored Auscultation: bilateral: diminished breath sounds, wheezes, rales Cardiovascular: regular rate and rhythm Gastrointestinal: normoactive bowel sounds, soft, non-tender, non-distended Integumentary: normal Extremities: no cyanosis, edema normal mental status, pupils equal and round anxious, depressed Results - Laboratory Findings CBC and BMP: 12/31/18 04:10 01/01/19 04:30 ABG ABG pH 7.21 pH Units (7.32-7.45) L 01/01/19 04:34 ABG pCO2 54 mmHg (35-45) H 01/01/19 04:34 ABG pO2 56 mmHg (85-104) L 01/01/19 04:34 ABG O2 Saturation 82 % (95-98) L 01/01/19 04:34 PT/INR, D-dimer PT 14.2 Seconds (9.4-12.1) H 12/26/18 18:10 Abnormal lab findings: Abnormal lab results WBC 14.0 K/mcL (4.3-11.1) H 12/31/18 04:10 MCHC 30.4 g/dL (31.6-35.5) L 12/31/18 04:10 RDW 15.0 % (11.5-14.5) H 12/31/18 04:10 Plt Count 112 K/mcL (140-400) L 12/31/18 04:10 Neutrophils # 12.3 K/mcL (1.6-8.9) H 12/30/18 04:30 Lymphocytes # 0.2 K/mcL (0.6-4.6) L 12/30/18 04:30 Nucleated RBCs/100 WBC 0.4 /100 WBC (0) H 12/30/18 04:30 PT 14.2 Seconds (9.4-12.1) H 12/26/18 18:10 APTT 38.6 Seconds (26.0-36.0) H 12/23/18 15:36 Heparin Anti-Xa, Unfract 0.00 IU/mL (0.30-0.70) L 01/01/19 04:30 ABG pH 7.21 pH Units (7.32-7.45) L 01/01/19 04:34 ABG pCO2 54 mmHg (35-45) H 01/01/19 04:34 ABG pO2 56 mmHg (85-104) L 01/01/19 04:34 ABG O2 Saturation 82 % (95-98) L 01/01/19 04:34 ABG Base Excess -7 mEq/L (-2 to 3) L 01/01/19 04:34 Chloride 109 mEq/L (98-107) H 01/01/19 04:30 Carbon Dioxide 19 mEq/L (23-29) L 01/01/19 04:30 BUN 102 mg/dL (8-23) H 01/01/19 04:30 Creatinine 3.12 mg/dL (0.60-1.20) H 01/01/19 04:30 Est GFR ( Amer) 18 (> 60) L 01/01/19 04:30 Est GFR (Non-Af Amer) 15 (> 60) L 01/01/19 04:30 BUN/Creatinine Ratio 33 (6-26) H 01/01/19 04:30 Calculated Osmolality 328 (280-300) H 01/01/19 04:30 Uric Acid 11.5 mg/dL (2.3-7.6) H 12/30/18 04:30 Phosphorus 6.2 mg/dL (2.7-4.5) H 12/28/18 04:35 AST 101 Units/L (13-39) H 12/27/18 02:20 ALT 255 Units/L (7-52) H 12/27/18 02:20 Lactate Dehydrogenase 380 Units/L (140-271) H 12/26/18 01:30 Troponin I 0.66 ng/mL (< 0.04) H* 12/29/18 00:20 B-Natriuretic Peptide 1332 pg/mL (Less than 100) H 12/23/18 15:36 Serum Total Protein 5.3 g/dL (6.4-8.9) L 12/27/18 02:20 Total Protein (PEP) 5.60 g/dL (6.00-8.30) L 12/25/18 16:09 Albumin 3.4 g/dL (3.5-5.7) L 12/27/18 02:20 Albumin (PEP) 3.21 g/dL (3.75-5.01) L 12/25/18 16:09 Globulin 1.9 g/dL (2.4-3.5) L 12/27/18 02:20 25-OH Vitamin D Total 13 ng/mL (30-80) L 12/25/18 15:54 PTH Intact 285.6 pg/ml (10.0-65.0) H 12/25/18 15:54 Urine Clarity Cloudy (Clear) A 12/29/18 13:45 Ur Specific [place] > 1.030 (1.010-1.025) H 12/29/18 13:45 Urine Protein 30 mg/dL (Neg-Trace) H 12/29/18 13:45 Urine Blood Trace (Negative) H 12/29/18 13:45 Urine Microscopic WBC 15-30 per hpf (0-3) H 12/29/18 13:45 Ur Squamous Epith Cells Many per lpf (None-Few) H 12/29/18 13:45 Amorphous Sediment Many (Few) H 12/26/18 17:25 IgG 665 mg/dL (768-1632) L 12/25/18 16:09 IgM 33 mg/dL (35-263) L 12/25/18 16:09 Complement C3 57 mg/dL (87-200) L 12/25/18 15:54 Complement C4 15 mg/dL (19-52) L 12/25/18 15:54 Free [place] LC, Quant 4.28 mg/dL (0.33-1.94) H 12/25/18 16:09 Free [place]/Lambda Ratio 1.76 (0.26-1.65) H 12/25/18 16:09 Hep Bs Antibody < 3.10 mIU/mL (10.00-) L 12/25/18 16:09 - Clinical Findings Intake & Output: Intake & Output 12/31/18 01/01/19 01/01/19 23:59 07:59 15:59 Intake Total 100 / 100 150 / 150 980 / 980 Balance 100 / 100 150 / 150 980 / 980 Weight 97.1 kg
--- NOTE | 2019-01-01 11:19 | Event Note ---
<Salina Garcia N - Last Filed: 01/01/19 11:13> Date of Encounter: 01/01/19 Time of Encounter: 08:00 Patient was on hospitalist list this morning. Patient was seen and examined. Her condition is serious as she is requiring constant bipap with evidence of continuing acidosis on ABG. Spoke with pulmonology/critical care team who informed us that the patient will remain in ICU as she is high risk and may require intubation. Pulmonary/critical care will continue to manage the patient. <Hortencia Orourke M - Last Filed: 01/01/19 12:21> Date of Encounter: 01/01/19 I examined this patient and my medical decision-making was reviewed with the Resident Physician Dr Garcia. I agree with the documented findings, disposition and treatment plan as described except to the extent set forth below. As discussed with Pulm/Crit team, pt will stay in ICU and they will continue to follow.
[2019-01-01] MEDS ORDERED: *HR* Dextrose 50 % in Water (Syg) 50 ML SYRINGE ONE (11:43)
[2019-01-01] MEDS ORDERED: *HR* Dextrose 50 % in Water (Syg) 50 ML SYRINGE IVP ONE (11:44)
--- NOTE | 2019-01-01 13:39 | Palliative Progress Note ---
Date of Encounter: 01/01/19 Time of Encounter: 12:30 - Assessment and plan (1) Goals of care, counseling/discussion Current Visit: Yes Status: Acute Assessment and plan: At first I met with patient alone this morning, and had an intense discussion about her current medical condition, the fact that she is in respiratory failure, at risk of intubation, expressed the concern that she likely will not be able to be successfully weaned from the vent, explained that per pulmonary, she is a poor candidate for trach due to her underlying condition. Expressed with these premisses a PEG tube is a high risk and futile procedure, and at best will result in prolonging her dying process. Explained the option of hospice, and the care offered. She demonstrated understanding. Plan was to return and discuss when family is present. Met with family after they discussed with pulmonary, patient remained alert and participating. They stated that patient was contemplating hospice for sometime, but at the end she decided she still wanted all to be done, and wanted to know from surgery if a PEG was an option for her. Patient confirmed her choice. Per nurse surgery was consulted. Palliative care will continue to follow. 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 Urine output is ok. no acute need of HD (3) Acute and chronic respiratory failure with hypoxia Current Visit: Yes Status: Acute Assessment and plan: Remains BiPAP dependent. was transferred to MICU for impending fatigue. Patient is no longer tolerating BiPAP well. She is agreeable to intubation. 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 at the time of exam, patient is drowsy, but arousable. She states to be feeling fine on the BiPAP. No family member present. - Constitutional Vitals: Abnormal lab results WBC 14.0 K/mcL (4.3-11.1) H 12/31/18 04:10 MCHC 30.4 g/dL (31.6-35.5) L 12/31/18 04:10 RDW 15.0 % (11.5-14.5) H 12/31/18 04:10 Plt Count 112 K/mcL (140-400) L 12/31/18 04:10 Neutrophils # 12.3 K/mcL (1.6-8.9) H 12/30/18 04:30 Lymphocytes # 0.2 K/mcL (0.6-4.6) L 12/30/18 04:30 Nucleated RBCs/100 WBC 0.4 /100 WBC (0) H 12/30/18 04:30 PT 14.2 Seconds (9.4-12.1) H 12/26/18 18:10 APTT 38.6 Seconds (26.0-36.0) H 12/23/18 15:36 Heparin Anti-Xa, Unfract 0.00 IU/mL (0.30-0.70) L 01/01/19 04:30 ABG pH 7.21 pH Units (7.32-7.45) L 01/01/19 04:34 ABG pCO2 54 mmHg (35-45) H 01/01/19 04:34 ABG pO2 56 mmHg (85-104) L 01/01/19 04:34 ABG O2 Saturation 82 % (95-98) L 01/01/19 04:34 ABG Base Excess -7 mEq/L (-2 to 3) L 01/01/19 04:34 Chloride 109 mEq/L (98-107) H 01/01/19 04:30 Carbon Dioxide 19 mEq/L (23-29) L 01/01/19 04:30 BUN 102 mg/dL (8-23) H 01/01/19 04:30 Creatinine 3.12 mg/dL (0.60-1.20) H 01/01/19 04:30 Est GFR ( Amer) 18 (> 60) L 01/01/19 04:30 Est GFR (Non-Af Amer) 15 (> 60) L 01/01/19 04:30 BUN/Creatinine Ratio 33 (6-26) H 01/01/19 04:30 POC Glucose 66 mg/dL (70-99) L 01/01/19 11:26 Calculated Osmolality 328 (280-300) H 01/01/19 04:30 Uric Acid 11.5 mg/dL (2.3-7.6) H 12/30/18 04:30 Phosphorus 6.2 mg/dL (2.7-4.5) H 12/28/18 04:35 AST 101 Units/L (13-39) H 12/27/18 02:20 ALT 255 Units/L (7-52) H 12/27/18 02:20 Lactate Dehydrogenase 380 Units/L (140-271) H 12/26/18 01:30 Troponin I 0.66 ng/mL (< 0.04) H* 12/29/18 00:20 B-Natriuretic Peptide 1332 pg/mL (Less than 100) H 12/23/18 15:36 Serum Total Protein 5.3 g/dL (6.4-8.9) L 12/27/18 02:20 Total Protein (PEP) 5.60 g/dL (6.00-8.30) L 12/25/18 16:09 Albumin 3.4 g/dL (3.5-5.7) L 12/27/18 02:20 Albumin (PEP) 3.21 g/dL (3.75-5.01) L 12/25/18 16:09 Globulin 1.9 g/dL (2.4-3.5) L 12/27/18 02:20 25-OH Vitamin D Total 13 ng/mL (30-80) L 12/25/18 15:54 PTH Intact 285.6 pg/ml (10.0-65.0) H 12/25/18 15:54 Urine Clarity Cloudy (Clear) A 12/29/18 13:45 Ur Specific [place] > 1.030 (1.010-1.025) H 12/29/18 13:45 Urine Protein 30 mg/dL (Neg-Trace) H 12/29/18 13:45 Urine Blood Trace (Negative) H 12/29/18 13:45 Urine Microscopic WBC 15-30 per hpf (0-3) H 12/29/18 13:45 Ur Squamous Epith Cells Many per lpf (None-Few) H 12/29/18 13:45 Amorphous Sediment Many (Few) H 12/26/18 17:25 IgG 665 mg/dL (768-1632) L 12/25/18 16:09 IgM 33 mg/dL (35-263) L 12/25/18 16:09 Complement C3 57 mg/dL (87-200) L 12/25/18 15:54 Complement C4 15 mg/dL (19-52) L 12/25/18 15:54 Free [place] LC, Quant 4.28 mg/dL (0.33-1.94) H 12/25/18 16:09 Free [place]/Lambda Ratio 1.76 (0.26-1.65) H 12/25/18 16:09 Hep Bs Antibody < 3.10 mIU/mL (10.00-) L 12/25/18 16:09 Exam: Vitals: Reviewed General: Obese, Alert and oriented. In mild respiratory distress on BiPAP Skin: Normal color, no rash, no lesions. HEENT: EOM, pupils equal, round and reactive. Cardiovascular: RRR, normal S1 & S2, no rubs, murmurs or gallops. Lungs: scattered b/l wheezes, rales on the left lower lobe, crackles. Abdomen: Obese, soft, non-tender, no rigidity. Extremities: bilateral edema, No deformity, tenderness, no joint swelling or clubbing. Neurological: No focal deficit Palliative Quality Palliative Quality: Screen for Code Status: Yes, Screen for Goals of Care: Yes, Screen for Pain: Yes, If Pain Regimen Started, Initiate Bowel Regimen: NA, Screen for Nausea/Vomitting: Yes Code Status: 12/23/18 20:11 Resuscitation Status: Active [RES] Stat Comment: Resuscitation Status: Full Code 12/29/18 11:55 DNR [Resuscitation Status: Active] [RES] Routine Comment: State form completed; patient signed. Resuscitation Status: DNR-Comfort Care-Arrest - Labs CBC & Chem 7: 12/31/18 04:10 01/01/19 04:30 Labs: Laboratory Results - last 24 hr 12/31/18 12/31/18 12/31/18 18:01 21:21 23:04 Heparin Anti-Xa, Unfract Sample Site ABG pH ABG pCO2 ABG pO2 ABG HCO3 ABG Total CO2 ABG O2 Saturation ABG Base Excess Alok Test Respiration Rate O2 Delivery Device Blood Gas Modality Inspired O2 Tidal Volume PEEP Sodium Potassium Chloride Carbon Dioxide BUN Creatinine Est GFR ( Amer) Est GFR (Non-Af Amer) BUN/Creatinine Ratio Glucose POC Glucose 92 89 95 Calculated Osmolality Calcium 01/01/19 01/01/19 01/01/19 04:30 04:30 04:34 Heparin Anti-Xa, Unfract 0.00 L Sample Site L Radial ABG pH 7.21 L ABG pCO2 54 H ABG pO2 56 L ABG HCO3 22 ABG Total CO2 23 ABG O2 Saturation 82 L ABG Base Excess -7 L Alok Test N/A Respiration Rate 14 O2 Delivery Device BiPAP Blood Gas Modality Avaps Inspired O2 60.0 Tidal Volume 550 PEEP 10 Sodium 144 Potassium 4.5 Chloride 109 H Carbon Dioxide 19 L BUN 102 H Creatinine 3.12 H Est GFR ( Amer) 18 L Est GFR (Non-Af Amer) 15 L BUN/Creatinine Ratio 33 H Glucose 72 POC Glucose Calculated Osmolality 328 H Calcium 8.6 01/01/19 01/01/19 05:37 11:26 Heparin Anti-Xa, Unfract Sample Site ABG pH ABG pCO2 ABG pO2 ABG HCO3 ABG Total CO2 ABG O2 Saturation ABG Base Excess Alok Test Respiration Rate O2 Delivery Device Blood Gas Modality Inspired O2 Tidal Volume PEEP Sodium Potassium Chloride Carbon Dioxide BUN Creatinine Est GFR ( Amer) Est GFR (Non-Af Amer) BUN/Creatinine Ratio Glucose POC Glucose 78 66 L Calculated Osmolality Calcium - ABG Interpretation ABG results: ABG ABG pH 7.21 pH Units (7.32-7.45) L 01/01/19 04:34 ABG pCO2 54 mmHg (35-45) H 01/01/19 04:34 ABG pO2 56 mmHg (85-104) L 01/01/19 04:34 ABG O2 Saturation 82 % (95-98) L 01/01/19 04:34 PT/INR, D-dimer PT 14.2 Seconds (9.4-12.1) H 12/26/18 18:10 Palliative Scale - Palliative Performance Scale How ambulatory is this patient?: Mainly in bed What is patient's level of activity and evidence of disease?: Unable to do any work, Extensive disease How much self-care assistance does patient require?: Considerable assistance required How much oral intake does the patient have?: Mouth care only What is this patient's level of consciousness?: Full Palliative Performance Score: 40 % Consult Discharge Plan - Plan Referrals: Michel Giron MD [Primary Care Provider] -
[2019-01-01 13:48] LABS: ABG Base Excess -7 mEq/L (-2 to 3); ABG HCO3 21 mEq/L (21-27); ABG Oxygen Saturation 33 % (95-98); ABG PCO2 53 mmHg (35-45); ABG PH 7.22 pH Units (7.32-7.45); ABG PO2 25 mmHg (85-104); ABG TCO2 23 mEq/L (20-26)
--- NOTE | 2019-01-01 16:00 | Event Note ---
Date of Encounter: 01/01/19 Time of Encounter: 15:51 Surgery was consulted for the possibility of a PEG tube. Pt's son (Ramesh), daughter (Sharla), and daughter (Tiffanie) are at bedside. 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 Status post concurrent chemoradiotherapy to the lung/glottic larynx with weekly cisplatin/paclitaxel x6 doses completed 09/03/2018. Chemotherapy course was abbreviated secondary to patient noncompliance. She was noted to have persistent disease involving the primary as well as mediastinal lymph nodes by PET/CT 11/26/2018 and recommended to start palliative intent dose attenuated carboplatin, abraxane and pembrolizumab initiated 12/23/2018. She is also noted to have pneumonia this visit. Per chart review she's not amenable to a trick placement due to her extensive cancer. Per chart review, review with RN, and review with patient and family, it appears the patient has terminal lung cancer. She is currently dependant on a BiPAP (currently unable to go longer than an hour off bipap). Earlier in the day she expressed wishes to go to hospice but at some point dimension was made of possible peg tube for nutrition. Per chart review she was recently on pured diet but has not had nutrition and over 7 days and would require speech evaluation prior to initiation of PO however due to her dependence on BiPAP this has not been able to be evaluated. This INSTRUMENT LENS GRINDER APPRENTICE reviewed with the patient, her son, and daughters at bedside that it peg tube is not feasible for her at this time given her dependence upon BiPAP. She would be at a significant risk for intubation and thus dependence upon a ventilator and furthermore it would be a high risk of not surviving any procedures. I did review with the patient and family that hospitalist with comfort care only would be the best choice for her at this time. Patient and family expressed understanding and a desire to be discharged to hospice here or at home (whichever would be feasible). This INSTRUMENT LENS GRINDER APPRENTICE attempted to provide comfort and reassurance to the patient and family that although this is not the course that the had wished to take, it is in the best interest for the patient and family to accept this poor prognosis and remain as comfortable as possible for as long as possible. Surgery will sign off at this time. Thank you for considering us to participate in the care of Mrs. Kumar
[2019-01-01] MEDS ORDERED: *HR* Rivaroxaban 10 MG TABLET PO SCH (17:00)
[2019-01-01] MEDS: D5% in 0.45% NACL 1,000 ML IVC SCH (18:18)
--- NOTE | 2019-01-01 19:33 | Nephrology Progress Note ---
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 s/p CT chest with results noted. Pt remains NPO and wants to get PEG tube Objective - Vital Signs Vital signs: Vital Signs Temp Pulse Resp BP Pulse Ox 01/01/19 19:00 90 24 115/76 92 01/01/19 18:00 88 24 105/81 91 01/01/19 17:00 87 24 99/60 90 01/01/19 16:00 83 24 112/71 94 01/01/19 15:31 27 91 01/01/19 15:00 81 24 114/71 91 01/01/19 14:00 81 24 99/59 91 01/01/19 13:00 81 22 111/72 92 01/01/19 12:00 81 23 94/74 95 01/01/19 11:26 79 01/01/19 11:00 97.5 F L 79 29 113/103 94 01/01/19 10:00 80 26 95/50 94 01/01/19 09:00 74 24 107/54 92 01/01/19 08:00 77 27 126/75 92 01/01/19 07:43 96.0 F L 01/01/19 07:28 22 90 01/01/19 07:00 75 24 113/82 90 01/01/19 05:58 76 26 98/64 90 01/01/19 04:48 75 28 111/65 89 01/01/19 04:10 19 93/39 89 01/01/19 04:00 96.5 F L 01/01/19 03:54 71 28 107/76 85 01/01/19 03:00 71 19 99/66 88 01/01/19 02:00 76 25 88/61 90 01/01/19 01:00 76 27 114/62 92 01/01/19 00:22 73 22 133/91 01/01/19 00:00 96.6 F L 12/31/18 23:51 28 122/98 90 12/31/18 22:57 81 26 122/98 87 12/31/18 22:00 79 26 105/67 89 12/31/18 21:00 80 21 90/65 90 12/31/18 20:39 27 116/76 88 12/31/18 20:00 97.2 F L 12/31/18 19:45 85 29 103/60 87 Intake and Output 01/01/19 01/01/19 01/01/19 07:59 15:59 23:59 Intake Total 150 / 150 980 / 980 100 / 100 Balance 150 / 150 980 / 980 100 / 100 Intake: IV Fluids 100 / 100 980 / 980 100 / 100 0.9 % Sodium Chloride 1,000 ML 980 / 980 @ 50 mls/hr IVC .Q20H NANCY Rx#: [id number] Zosyn 3.375 GM In 0.9 % Sodium 100 / 100 100 / 100 Chloride (Mini-Bag +) 100 ML @ 25 mls/hr IVPB Q12H NANCY Rx#: [id number] Oral 50 / 50 Other: Stool Size Smear Stool Characteristics Tarry Stool Color Green # Urine Diapers 1 1 Weight 97.1 kg Blood Glucose* 78 115 Patient Weight 01/01/19 23:59 Weight 97.1 kg - Lab 12/31/18 04:10 01/01/19 04:30 Most recent lab results ABG pH 7.22 pH Units (7.32-7.45) L 01/01/19 13:43 ABG pCO2 53 mmHg (35-45) H 01/01/19 13:43 ABG pO2 25 mmHg (85-104) L* 01/01/19 13:43 ABG HCO3 21 mEq/L (21-27) 01/01/19 13:43 ABG O2 Saturation 33 % (95-98) L 01/01/19 13:43 Calcium 8.6 mg/dL (8.6-10.3) 01/01/19 04:30 Phosphorus 6.2 mg/dL (2.7-4.5) H 12/28/18 04:35 Magnesium 2.4 mg/dL (1.6-2.6) 12/28/18 04:35 Urine Creatinine 131 mg/dL 12/26/18 17:25 Urine Sodium 17.2 mEq/L 12/26/18 17:25 Consult Discharge Plan - Plan Referrals: Michel Giron MD [Primary Care Provider] -
[2019-01-02 04:04] LABS: Basophils % 0.2 %; Hematocrit 41.3 % (35.3-44.9); Hemoglobin 12.4 g/dL (11.5-15.4); Immature Granulocytes % 2.3 % (0-4); Lymphocytes # 0.2 K/mcL (0.6-4.6); Lymphocytes % 1.3 %; Mean Corpuscular Hemoglobin 29.6 pg (28.0-33.3); Mean Corpuscular Volume 98.6 fL (83.0-100.0); Mean Platelet Volume 11.8 fL (9.4-12.4); Monocytes # 0.5 K/mcL (0.0-1.3); Monocytes % 3.1 %; Neutrophils # 14.2 K/mcL (1.6-8.9); Nucleated Red Blood Cells 0.5 /100 WBC (0); Platelet Count 118 K/mcL (140-400); Red Blood Count 4.19 M/mcL (3.82-4.97); Red Cell Distribution Width 15.4 % (11.5-14.5); Segmented Neutrophils % 93.1 %
[2019-01-02 04:21] LABS: Calcium 8.1 mg/dL (8.6-10.3); Potassium 4.7 mEq/L (3.5-5.1)
[2019-01-02] MEDS: D5% in 0.45% NACL 1,000 ML IVC SCH ×5 (04:57→21:16)
[2019-01-02] MEDS: Insulin LISPRO 300 UNITS/3 ML VIAL SQ SCH ×3 (05:05→18:17)
[2019-01-02] MEDS: MethylPREDNISolone 40 MG/ML VIAL IVP SCH (05:07)
[2019-01-02] MEDS: *HR* Heparin 5,000 UNIT/ML VIAL SQ SCH ×2 (05:07→18:14)
--- NOTE | 2019-01-02 07:16 | Nephrology Progress Note ---
Date of Encounter: 01/02/19 Time of Encounter: 08:10 - Assessment and Plan (1) MARIE (acute kidney injury) Current Visit: Yes Status: Acute Ongoing acute kidney injury, worsening over the last 3 days. Her urine output has been oligoanuric. I reviewed the labs, vitals, medications, imaging, as well as the progress notes especially from palliative care. I see that the patient's prognosis is poor, and given the worsening renal function as well as her poor respiratory function, she most likely would make for a less than ideal/poor dialysis candidate. I concur with the pt's wishes to not have dialysis. 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 She and one of her younger lady relatives affirms that she would not want dialysis. The ICU nurse reported that she would soon be transferring to the palliative care service. Objective - Vital Signs Vital signs: Vital Signs Temp Pulse Resp BP Pulse Ox 01/02/19 06:00 82 19 115/84 94 01/02/19 05:00 76 26 95/59 94 01/02/19 04:00 97.0 F L 76 18 95/52 93 01/02/19 03:43 20 108/63 93 01/02/19 03:13 81 01/02/19 03:00 81 24 108/63 93 01/02/19 02:00 76 19 113/69 95 01/02/19 01:00 72 18 95/57 95 01/02/19 00:09 28 89 01/02/19 00:00 81 27 106/65 90 01/01/19 23:41 84 01/01/19 23:00 97.1 F L 74 23 112/72 91 01/01/19 22:19 25 104/73 90 01/01/19 22:00 75 25 104/73 91 01/01/19 21:00 82 25 110/65 93 01/01/19 20:00 82 26 119/62 93 01/01/19 19:57 86 01/01/19 19:00 97.4 F L 90 24 115/76 92 01/01/19 18:00 88 24 105/81 91 01/01/19 17:00 87 24 99/60 90 01/01/19 16:00 83 24 112/71 94 01/01/19 15:31 27 91 01/01/19 15:00 81 24 114/71 91 01/01/19 14:00 81 24 99/59 91 01/01/19 13:00 81 22 111/72 92 01/01/19 12:00 81 23 94/74 95 01/01/19 11:26 79 01/01/19 11:00 97.5 F L 79 29 113/103 94 01/01/19 10:00 80 26 95/50 94 01/01/19 09:00 74 24 107/54 92 01/01/19 08:00 77 27 126/75 92 01/01/19 07:43 96.0 F L 01/01/19 07:28 22 90 Intake and Output 01/01/19 01/01/19 01/02/19 15:59 23:59 07:59 Intake Total 980 / 980 100 / 100 1000 / 1000 Balance 980 / 980 100 / 100 1000 / 1000 Intake: IV Fluids 980 / 980 100 / 100 1000 / 1000 0.9 % Sodium Chloride 1,000 ML 980 / 980 @ 50 mls/hr IVC .Q20H NANCY Rx#: [id number] D5% And 0.45% Nacl 1000 Ml Bag 900 / 900 1,000 ML @ 100 mls/hr IVC .Q10H NANCY Rx#:[id number] Zosyn 3.375 GM In 0.9 % Sodium 100 / 100 100 / 100 Chloride (Mini-Bag +) 100 ML @ 25 mls/hr IVPB Q12H NANCY Rx#: [id number] Oral 0 / 0 Other: Stool Size Smear Stool Characteristics Tarry Stool Color Green # Urine Diapers 1 1 Weight 98.6 kg Blood Glucose* 115 150 - General Appearance General appearance: Present: moderate distress, chronically ill, fatigue, frail EENT: Present: mucous membranes moist Neck: Present: supple Respiratory: Present: wheezing (faint), course breath sounds Cardiology: Present: edema (2+ pedal edema bilaterally), normal S1, normal S2 Gastrointestinal: Present: normoactive bowel sounds, no tenderness Neurologic: Present: no focal deficit (and moved all four extremities), no asterixis Musculoskeletal: Present: no clubbing Psychiatric: Present: cooperative - Lab 01/02/19 03:45 01/03/19 Unknown Most recent lab results ABG pH 7.22 pH Units (7.32-7.45) L 01/01/19 13:43 ABG pCO2 53 mmHg (35-45) H 01/01/19 13:43 ABG pO2 25 mmHg (85-104) L* 01/01/19 13:43 ABG HCO3 21 mEq/L (21-27) 01/01/19 13:43 ABG O2 Saturation 33 % (95-98) L 01/01/19 13:43 Calcium 8.1 mg/dL (8.6-10.3) L 01/02/19 03:45 Phosphorus 6.2 mg/dL (2.7-4.5) H 12/28/18 04:35 Magnesium 2.4 mg/dL (1.6-2.6) 12/28/18 04:35 Urine Creatinine 131 mg/dL 12/26/18 17:25 Urine Sodium 17.2 mEq/L 12/26/18 17:25 Consult Discharge Plan - Plan Referrals: Michel Giron MD [Primary Care Provider] -
--- NOTE | 2019-01-02 07:32 | Pulmonology Progress Note ---
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 latest ABG : Ph 7.22, Pco2 53, Po2 25, Hco3 21 ,Feeling a little bit comfortable with Bipap. Plan : Stopped IV antibitics ,already got it for 10 days. Continue Bi pap Continue IV Solu Medrol, Nebulization for bronchospsm and Bronchial inflamation. Cautious diuresis for pulmonary congestion, BUN and creatinine are still high Check ABG tomorrow as well. Oncology team on loop. (2) Pneumonia Current Visit: Yes Status: Acute The patient presented for shortness of breath with hypoxia CTA chest showed;There is a slightly larger mass in the right upper lobe of the lung, concerning for malignancy with stable metastatic mediastinal lymph nodes. Moderate right and mild left pleural effusions, increased in size on the left, with associated atelectasis in the lungs.Thickened secretions in the lower lobe bronchi which may be related to aspiration versus mucous plugging Blood and sputum culture; preliminary report no growth, final report awaited Urine Legionella antigen and Streptococcus pneumoniae antigen positive Patient was on IV antibiotic Zosyn Plan : Stopped IV antibiotics. Wait and watch sputum culture report : Final report no growth Continue Duoneb nebulization and Solumedrol under tapering dose for airway inflammation and bronchospsm Continue Bipap. . Qualifiers: Pneumonia type: due to unspecified organism Laterality: right Lung location: lower lobe of lung Qualified Code(s): J18.1 - Lobar pneumonia, unspecified organism (3) Non-small cell lung cancer Current Visit: No Status: Chronic Patient is a chronic patient of squamous cell carcinoma of lung stage III, last chemotherapy was in 2017 she received new chemo for Ca lung ,only one infusion of chemotherapy on 12/23/18, Keytruda (pembrolizumab). Oncology consultation has been done, appreciate recommendation Palliative care consultation has been requested. palliative care consultation note : Patient and family concluded that patient wanted to continue to "live as long as possible" and they will do anything she agrees to. Patient remains DNRCCA, palliative care will continue to follow and discuss goals of care. Qualifiers: Laterality: unspecified laterality Qualified Code(s): C34.90 - Malignant neoplasm of unspecified part of unspecified bronchus or lung (4) (HFpEF) heart failure with preserved ejection fraction Current Visit: Yes Status: Acute The patient's echocardiography showed his ejection fraction; 4045 percent with moderate left ventricular hypertrophy and moderate left ventricular diastolic dysfunction with dilated left ventricle. Recent chest x-ray showed mild congestion with atelectasis at Right side. Plan : Strict intake and output Weight dailly Cautious diuresis for pulmonary condition, BUN and creatinine are still elevated Reduced fluid intake. Qualifiers: Heart failure chronicity: unspecified Qualified Code(s): I50.30 - Unspecified diastolic (congestive) heart failure (5) Essential hypertension Current Visit: Yes Status: Chronic Is a chronic patient of hypertension under medication Hypertension blood pressure is 110/55 He was taking metoprolol 12.5 MG twice a day, it is on hold because of hypertension (6) Pleural effusion Current Visit: Yes Status: Acute Patient has minimal bilateral pleural effusion, seen in CTA chest. It was very minimal on latest x-ray done today. Resolving with IV antibiotics. (7) NSTEMI (non-ST elevated myocardial infarction) Current Visit: Yes Status: Acute elevated troponin levels 0.13 --> 1.28--> 3.81 in the setting of acute kidney injury and acute respiratory failure EKG revealed sinus rhythm with intraventricular conduction delay. Cardiology team recommended :Continue medical management. Do not recommend LHC at this time due to worsening renal function and inability to lay flat. Heparin drip has been discontinued . Subjective Principal diagnosis: SOB Interval history: 63 year old female with PMH of diabetic ,diastolic heart failure, COPD with pHTN and chronic hypoxic respiratory failure on 4L home oxygen who is currently being managed for stage III squamous cell carcinoma of the right upper lobe of the lung status post concurrent chemoradiotherapy completed 09/03/2018 which was abbreviated secondary to patient noncompliance but has persistent disease. she received only one infusion of new chemotherapy on 12/23/18, Keytruda (pembrolizumab). Brought to ER for being more hypoxic than her baseline, found to be 85% on 4L and also hypotensive. Placed on Bipap support. As per her family member note ,she frequently gets more short of breath and hypoxic with physical exertion .CTA was done and ruled out PE but there is an increase in size in the right sided pleural effusion as well as enlargement in her right apical lesion. She reported feeling fatigued, occasionally having chills but no fever and states that her cough is chronic productive of whitish sputum. She was in inpatient since 12/23 and she was transferred to ICU for increased shortness of breath with hypoxia. Yesterday , we discussed with her and her family regarding further goal of care, she is willing to go for hospice care, she requested for placement of feeding tube/ PEG tube, so we consulted general surgery for further evaluation and intervention. Surgery team consulted her today and aren't going to put PEG tube as she is not a candidate for intubation and anaesthesia , patient and family member understands that. Today, during my bedside visit the patient was awake, she was on BiPAP, but looks in acute respiratory distress, vitals where pulse 81, temperature 98.4 night, blood pressure 106/58, she is on BiPAP saturation 96%. Cardiology team, general surgery team, nephrology team, oncology team was on board but this sign of because she is not a candidate for any acute intervention. program production specialist and we -financial operations analyst are taking care of her and discussing her goal of care with herself and family - Is Patient Candidate for Palliative Care Consider palliative consult if one or more criteria present:: Patient/family request a palliative care consult or hospice Objective PUL Vital signs: Last Vital Signs Temp 97.0 F L 01/02/19 04:00 Pulse 82 01/02/19 06:00 Resp 19 01/02/19 06:00 BP 115/84 01/02/19 06:00 Pulse Ox 94 01/02/19 06:00 Results - Laboratory Findings CBC and BMP: 01/02/19 03:45 01/02/19 03:45 ABG ABG pH 7.22 pH Units (7.32-7.45) L 01/01/19 13:43 ABG pCO2 53 mmHg (35-45) H 01/01/19 13:43 ABG pO2 25 mmHg (85-104) L* 01/01/19 13:43 ABG O2 Saturation 33 % (95-98) L 01/01/19 13:43 PT/INR, D-dimer PT 14.2 Seconds (9.4-12.1) H 12/26/18 18:10 Abnormal lab findings: Abnormal lab results WBC 15.3 K/mcL (4.3-11.1) H 01/02/19 03:45 MCHC 30.0 g/dL (31.6-35.5) L 01/02/19 03:45 RDW 15.4 % (11.5-14.5) H 01/02/19 03:45 Plt Count 118 K/mcL (140-400) L 01/02/19 03:45 Neutrophils # 14.2 K/mcL (1.6-8.9) H 01/02/19 03:45 Lymphocytes # 0.2 K/mcL (0.6-4.6) L 01/02/19 03:45 Nucleated RBCs/100 WBC 0.5 /100 WBC (0) H 01/02/19 03:45 PT 14.2 Seconds (9.4-12.1) H 12/26/18 18:10 APTT 38.6 Seconds (26.0-36.0) H 12/23/18 15:36 Heparin Anti-Xa, Unfract 0.00 IU/mL (0.30-0.70) L 01/01/19 04:30 ABG pH 7.22 pH Units (7.32-7.45) L 01/01/19 13:43 ABG pCO2 53 mmHg (35-45) H 01/01/19 13:43 ABG pO2 25 mmHg (85-104) L* 01/01/19 13:43 ABG O2 Saturation 33 % (95-98) L 01/01/19 13:43 ABG Base Excess -7 mEq/L (-2 to 3) L 01/01/19 13:43 Chloride 111 mEq/L (98-107) H 01/02/19 03:45 Carbon Dioxide 19 mEq/L (23-29) L 01/02/19 03:45 BUN 102 mg/dL (8-23) H 01/02/19 03:45 Creatinine 3.27 mg/dL (0.60-1.20) H 01/02/19 03:45 Est GFR ( Amer) 17 (> 60) L 01/02/19 03:45 Est GFR (Non-Af Amer) 14 (> 60) L 01/02/19 03:45 BUN/Creatinine Ratio 31 (6-26) H 01/02/19 03:45 Glucose 161 mg/dL (70-105) H 01/02/19 03:45 POC Glucose 150 mg/dL (70-99) H 01/01/19 23:34 Calculated Osmolality 329 (280-300) H 01/02/19 03:45 Uric Acid 11.5 mg/dL (2.3-7.6) H 12/30/18 04:30 Calcium 8.1 mg/dL (8.6-10.3) L 01/02/19 03:45 Phosphorus 6.2 mg/dL (2.7-4.5) H 12/28/18 04:35 AST 101 Units/L (13-39) H 12/27/18 02:20 ALT 255 Units/L (7-52) H 12/27/18 02:20 Lactate Dehydrogenase 380 Units/L (140-271) H 12/26/18 01:30 Troponin I 0.66 ng/mL (< 0.04) H* 12/29/18 00:20 B-Natriuretic Peptide 1332 pg/mL (Less than 100) H 12/23/18 15:36 Serum Total Protein 5.3 g/dL (6.4-8.9) L 12/27/18 02:20 Total Protein (PEP) 5.60 g/dL (6.00-8.30) L 12/25/18 16:09 Albumin 3.4 g/dL (3.5-5.7) L 12/27/18 02:20 Albumin (PEP) 3.21 g/dL (3.75-5.01) L 12/25/18 16:09 Globulin 1.9 g/dL (2.4-3.5) L 12/27/18 02:20 25-OH Vitamin D Total 13 ng/mL (30-80) L 12/25/18 15:54 PTH Intact 285.6 pg/ml (10.0-65.0) H 12/25/18 15:54 Urine Clarity Cloudy (Clear) A 12/29/18 13:45 Ur Specific [place] > 1.030 (1.010-1.025) H 12/29/18 13:45 Urine Protein 30 mg/dL (Neg-Trace) H 12/29/18 13:45 Urine Blood Trace (Negative) H 12/29/18 13:45 Urine Microscopic WBC 15-30 per hpf (0-3) H 12/29/18 13:45 Ur Squamous Epith Cells Many per lpf (None-Few) H 12/29/18 13:45 Amorphous Sediment Many (Few) H 12/26/18 17:25 IgG 665 mg/dL (768-1632) L 12/25/18 16:09 IgM 33 mg/dL (35-263) L 12/25/18 16:09 Complement C3 57 mg/dL (87-200) L 12/25/18 15:54 Complement C4 15 mg/dL (19-52) L 12/25/18 15:54 [place] LC, Quant 4.28 mg/dL (0.33-1.94) H 12/25/18 16:09 [place]/Lambda Ratio 1.76 (0.26-1.65) H 12/25/18 16:09 Hep Bs Antibody < 3.10 mIU/mL (10.00-) L 12/25/18 16:09 - Clinical Findings Intake & Output: Intake & Output 01/01/19 01/01/19 01/02/19 15:59 23:59 07:59 Intake Total 980 / 980 100 / 100 1000 / 1000 Balance 980 / 980 100 / 100 1000 / 1000 Weight 98.6 kg Consult Discharge Plan - Plan Referrals: Michel Giron MD [Primary Care Provider] - <Ok Morales - Last Filed: 01/02/19 15:35> Date of Encounter: 01/02/19 Objective PUL Vital signs: Last Vital Signs Temp 97.5 F L 01/02/19 08:15 Pulse 79 01/02/19 09:00 Resp 18 01/02/19 09:00 BP 113/66 01/02/19 09:00 Pulse Ox 96 01/02/19 09:00 Results - Laboratory Findings CBC and BMP: 01/02/19 03:45 01/02/19 03:45 ABG ABG pH 7.22 pH Units (7.32-7.45) L 01/01/19 13:43 ABG pCO2 53 mmHg (35-45) H 01/01/19 13:43 ABG pO2 25 mmHg (85-104) L* 01/01/19 13:43 ABG O2 Saturation 33 % (95-98) L 01/01/19 13:43 PT/INR, D-dimer PT 14.2 Seconds (9.4-12.1) H 12/26/18 18:10 Abnormal lab findings: Abnormal lab results WBC 15.3 K/mcL (4.3-11.1) H 01/02/19 03:45 MCHC 30.0 g/dL (31.6-35.5) L 01/02/19 03:45 RDW 15.4 % (11.5-14.5) H 01/02/19 03:45 Plt Count 118 K/mcL (140-400) L 01/02/19 03:45 Neutrophils # 14.2 K/mcL (1.6-8.9) H 01/02/19 03:45 Lymphocytes # 0.2 K/mcL (0.6-4.6) L 01/02/19 03:45 Nucleated RBCs/100 WBC 0.5 /100 WBC (0) H 01/02/19 03:45 PT 14.2 Seconds (9.4-12.1) H 12/26/18 18:10 APTT 38.6 Seconds (26.0-36.0) H 12/23/18 15:36 Heparin Anti-Xa, Unfract 0.00 IU/mL (0.30-0.70) L 01/01/19 04:30 ABG pH 7.22 pH Units (7.32-7.45) L 01/01/19 13:43 ABG pCO2 53 mmHg (35-45) H 01/01/19 13:43 ABG pO2 25 mmHg (85-104) L* 01/01/19 13:43 ABG O2 Saturation 33 % (95-98) L 01/01/19 13:43 ABG Base Excess -7 mEq/L (-2 to 3) L 01/01/19 13:43 Chloride 111 mEq/L (98-107) H 01/02/19 03:45 Carbon Dioxide 19 mEq/L (23-29) L 01/02/19 03:45 BUN 102 mg/dL (8-23) H 01/02/19 03:45 Creatinine 3.27 mg/dL (0.60-1.20) H 01/02/19 03:45 Est GFR ( Amer) 17 (> 60) L 01/02/19 03:45 Est GFR (Non-Af Amer) 14 (> 60) L 01/02/19 03:45 BUN/Creatinine Ratio 31 (6-26) H 01/02/19 03:45 Glucose 161 mg/dL (70-105) H 01/02/19 03:45 POC Glucose 150 mg/dL (70-99) H 01/01/19 23:34 Calculated Osmolality 329 (280-300) H 01/02/19 03:45 Uric Acid 11.5 mg/dL (2.3-7.6) H 12/30/18 04:30 Calcium 8.1 mg/dL (8.6-10.3) L 01/02/19 03:45 Phosphorus 6.2 mg/dL (2.7-4.5) H 12/28/18 04:35 AST 101 Units/L (13-39) H 12/27/18 02:20 ALT 255 Units/L (7-52) H 12/27/18 02:20 Lactate Dehydrogenase 380 Units/L (140-271) H 12/26/18 01:30 Troponin I 0.66 ng/mL (< 0.04) H* 12/29/18 00:20 B-Natriuretic Peptide 1332 pg/mL (Less than 100) H 12/23/18 15:36 Serum Total Protein 5.3 g/dL (6.4-8.9) L 12/27/18 02:20 Total Protein (PEP) 5.60 g/dL (6.00-8.30) L 12/25/18 16:09 Albumin 3.4 g/dL (3.5-5.7) L 12/27/18 02:20 Albumin (PEP) 3.21 g/dL (3.75-5.01) L 12/25/18 16:09 Globulin 1.9 g/dL (2.4-3.5) L 12/27/18 02:20 25-OH Vitamin D Total 13 ng/mL (30-80) L 12/25/18 15:54 PTH Intact 285.6 pg/ml (10.0-65.0) H 12/25/18 15:54 Urine Clarity Cloudy (Clear) A 12/29/18 13:45 Ur Specific [place] > 1.030 (1.010-1.025) H 12/29/18 13:45 Urine Protein 30 mg/dL (Neg-Trace) H 12/29/18 13:45 Urine Blood Trace (Negative) H 12/29/18 13:45 Urine Microscopic WBC 15-30 per hpf (0-3) H 12/29/18 13:45 Ur Squamous Epith Cells Many per lpf (None-Few) H 12/29/18 13:45 Amorphous Sediment Many (Few) H 12/26/18 17:25 IgG 665 mg/dL (768-1632) L 12/25/18 16:09 IgM 33 mg/dL (35-263) L 12/25/18 16:09 Complement C3 57 mg/dL (87-200) L 12/25/18 15:54 Complement C4 15 mg/dL (19-52) L 12/25/18 15:54 [place] LC, Quant 4.28 mg/dL (0.33-1.94) H 12/25/18 16:09 [place]/Lambda Ratio 1.76 (0.26-1.65) H 12/25/18 16:09 Hep Bs Antibody < 3.10 mIU/mL (10.00-) L 12/25/18 16:09 - Clinical Findings Intake & Output: Intake & Output 01/01/19 01/02/19 01/02/19 23:59 07:59 15:59 Intake Total 100 / 100 1100 / 1100 Balance 100 / 100 1100 / 1100 Weight 98.6 kg - Attending Attestation I examined this patient and my medical decision-making was reviewed with the Resident Physician. I agree with the documented findings, disposition and treatment plan as described except to the extent set forth below. Patient seen and examined. Labs, radiology, chart personally reviewed. 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 Palliative care note reviewed and patient to be comfort care but they are not ready for hospice yet. Patient to be on noninvasive ventilation. Cardiovascular: stable GI: Nutrition per dietary and GI prophylaxis per routine. This has been very challenging and would have it on IV fluid, this will not be enough nutrition, however hopefully this will keep her electrolytes relatively stable. Heme: DVT prophylaxis per routine Renal; urine out put and renal funtion reviewed Endorcine: blood glucose is monitored Lines: all lines checked and no evidence of infections Skin: skin care to prevent pressure ulcers per nursing routine care Patient can be transferred to the floor in next 24 hour.
[2019-01-02] MEDS: Budesonide/Formoterol 80/4.5 MDI IH SCH ×2 (07:36→22:13)
[2019-01-02] MEDS: Aspirin 81 MG TAB.CHEW PO SCH (07:47)
--- NOTE | 2019-01-02 12:16 | Palliative Progress Note ---
Date of Encounter: 01/02/19 Time of Encounter: 12:01 - Assessment and plan (1) Goals of care, counseling/discussion Current Visit: Yes Status: Acute Assessment and plan: Met with patient, son Ramesh, daughter Sharla, sister Yu and 2 grand- children. Reviewed current medical condition, discussed the conversation with surgery yesterday. Family is now of the understanding that patient is dying. Discussed hospice care with compassionate discontinuation of BiPAP, and comfort measures only to relieve suffering at end-of-life. Expressed the concern that long tern use of BiPAP continuously is not recommended because of discomfort, pain and suffering. Reiterated that the outcome will be the same and patient is dying.Patient's son and POA Ramesh stated that patient wants to live event if it is just few more days. Patient's primary nurse helped in explaining the same to patient as well and empowering her to make the final decision. Patient was unable to make a decision, but wants to discuss further with her family. Plan: Patient and family are not yet ready for hospice. but agreed to DNI and comfort care with continuing IVF and BiPAP. Recommend to discontinue IV steroids. Patient may be transferred out of ICU to hospitalist team. Palliative Care will continue to follow and work with patient and family understanding of prognosis. (2) MARIE (acute kidney injury) Current Visit: Yes Status: Acute (3) Acute and chronic respiratory failure with hypoxia Current Visit: Yes Status: Acute Assessment and plan: Remains BiPAP dependent. Discussed with family, intubation is not appropriate. Family agreed for DNI. 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 - Time Spent With Patient Total time spent is greater than 50% in coordination of care (as documented) at patient's floor/unit and/or counseling patient: - Subjective Interval history: Patient remains in BiPAP, and remains NPO. at the time of exam, patient is awake, appears oriented x3.. She states to be feeling uncomfortable with BiPAP. - Constitutional Vitals: Abnormal lab results WBC 15.3 K/mcL (4.3-11.1) H 01/02/19 03:45 MCHC 30.0 g/dL (31.6-35.5) L 01/02/19 03:45 RDW 15.4 % (11.5-14.5) H 01/02/19 03:45 Plt Count 118 K/mcL (140-400) L 01/02/19 03:45 Neutrophils # 14.2 K/mcL (1.6-8.9) H 01/02/19 03:45 Lymphocytes # 0.2 K/mcL (0.6-4.6) L 01/02/19 03:45 Nucleated RBCs/100 WBC 0.5 /100 WBC (0) H 01/02/19 03:45 PT 14.2 Seconds (9.4-12.1) H 12/26/18 18:10 APTT 38.6 Seconds (26.0-36.0) H 12/23/18 15:36 Heparin Anti-Xa, Unfract 0.00 IU/mL (0.30-0.70) L 01/01/19 04:30 ABG pH 7.22 pH Units (7.32-7.45) L 01/01/19 13:43 ABG pCO2 53 mmHg (35-45) H 01/01/19 13:43 ABG pO2 25 mmHg (85-104) L* 01/01/19 13:43 ABG O2 Saturation 33 % (95-98) L 01/01/19 13:43 ABG Base Excess -7 mEq/L (-2 to 3) L 01/01/19 13:43 Chloride 111 mEq/L (98-107) H 01/02/19 03:45 Carbon Dioxide 19 mEq/L (23-29) L 01/02/19 03:45 BUN 102 mg/dL (8-23) H 01/02/19 03:45 Creatinine 3.27 mg/dL (0.60-1.20) H 01/02/19 03:45 Est GFR ( Amer) 17 (> 60) L 01/02/19 03:45 Est GFR (Non-Af Amer) 14 (> 60) L 01/02/19 03:45 BUN/Creatinine Ratio 31 (6-26) H 01/02/19 03:45 Glucose 161 mg/dL (70-105) H 01/02/19 03:45 POC Glucose 193 mg/dL (70-99) H 01/02/19 11:36 Calculated Osmolality 329 (280-300) H 01/02/19 03:45 Uric Acid 11.5 mg/dL (2.3-7.6) H 12/30/18 04:30 Calcium 8.1 mg/dL (8.6-10.3) L 01/02/19 03:45 Phosphorus 6.2 mg/dL (2.7-4.5) H 12/28/18 04:35 AST 101 Units/L (13-39) H 12/27/18 02:20 ALT 255 Units/L (7-52) H 12/27/18 02:20 Lactate Dehydrogenase 380 Units/L (140-271) H 12/26/18 01:30 Troponin I 0.66 ng/mL (< 0.04) H* 12/29/18 00:20 B-Natriuretic Peptide 1332 pg/mL (Less than 100) H 12/23/18 15:36 Serum Total Protein 5.3 g/dL (6.4-8.9) L 12/27/18 02:20 Total Protein (PEP) 5.60 g/dL (6.00-8.30) L 12/25/18 16:09 Albumin 3.4 g/dL (3.5-5.7) L 12/27/18 02:20 Albumin (PEP) 3.21 g/dL (3.75-5.01) L 12/25/18 16:09 Globulin 1.9 g/dL (2.4-3.5) L 12/27/18 02:20 25-OH Vitamin D Total 13 ng/mL (30-80) L 12/25/18 15:54 PTH Intact 285.6 pg/ml (10.0-65.0) H 12/25/18 15:54 Urine Clarity Cloudy (Clear) A 12/29/18 13:45 Ur Specific Welch > 1.030 (1.010-1.025) H 12/29/18 13:45 Urine Protein 30 mg/dL (Neg-Trace) H 12/29/18 13:45 Urine Blood Trace (Negative) H 12/29/18 13:45 Urine Microscopic WBC 15-30 per hpf (0-3) H 12/29/18 13:45 Ur Squamous Epith Cells Many per lpf (None-Few) H 12/29/18 13:45 Amorphous Sediment Many (Few) H 12/26/18 17:25 IgG 665 mg/dL (768-1632) L 12/25/18 16:09 IgM 33 mg/dL (35-263) L 12/25/18 16:09 Complement C3 57 mg/dL (87-200) L 12/25/18 15:54 Complement C4 15 mg/dL (19-52) L 12/25/18 15:54 Free [place] LC, Quant 4.28 mg/dL (0.33-1.94) H 12/25/18 16:09 Free [place]/Lambda Ratio 1.76 (0.26-1.65) H 12/25/18 16:09 Hep Bs Antibody < 3.10 mIU/mL (10.00-) L 12/25/18 16:09 Exam: Vitals: Reviewed General: Obese, Alert and oriented. In mild respiratory distress on BiPAP Skin: Normal color, no rash, no lesions. HEENT: EOM, pupils equal, round and reactive. Cardiovascular: RRR, normal S1 & S2, no rubs, murmurs or gallops. Lungs: scattered b/l wheezes, rales on the left lower lobe, crackles. Abdomen: Obese, soft, non-tender, no rigidity. Extremities: bilateral edema, No deformity, tenderness, no joint swelling or clubbing. Neurological: No focal deficit Palliative Quality Palliative Quality: Screen for Code Status: Yes, Screen for Goals of Care: Yes, Screen for Pain: Yes, If Pain Regimen Started, Initiate Bowel Regimen: NA, Screen for Nausea/Vomitting: Yes Code Status: 12/23/18 20:11 Resuscitation Status: Active [RES] Stat Comment: Resuscitation Status: Full Code 12/29/18 11:55 DNR [Resuscitation Status: Active] [RES] Routine Comment: State form completed; patient signed. Resuscitation Status: DNR-Comfort Care-Arrest - Labs CBC & Chem 7: 01/02/19 03:45 01/02/19 03:45 Labs: Laboratory Results - last 24 hr 01/01/19 01/01/19 01/01/19 13:43 13:56 18:29 WBC RBC Hgb Hct MCV MCH MCHC RDW Plt Count MPV Immature Gran % Seg Neutrophils % Lymphocytes % Monocytes % Eosinophils % Basophils % Neutrophils # Lymphocytes # Monocytes # Eosinophils # Basophils # Nucleated RBCs/100 WBC Sample Site R Radial ABG pH 7.22 L ABG pCO2 53 H ABG pO2 25 L* ABG HCO3 21 ABG Total CO2 23 ABG O2 Saturation 33 L ABG Base Excess -7 L O2 Delivery Device BiPAP Inspired O2 60.0 Sodium Potassium Chloride Carbon Dioxide BUN Creatinine Est GFR ( Amer) Est GFR (Non-Af Amer) BUN/Creatinine Ratio Glucose POC Glucose 115 H 101 H Calculated Osmolality Calcium 01/01/19 01/02/19 01/02/19 23:34 03:45 03:45 WBC 15.3 H RBC 4.19 Hgb 12.4 Hct 41.3 MCV 98.6 MCH 29.6 MCHC 30.0 L RDW 15.4 H Plt Count 118 L MPV 11.8 Immature Gran % 2.3 Seg Neutrophils % 93.1 Lymphocytes % 1.3 Monocytes % 3.1 Eosinophils % 0.0 Basophils % 0.2 Neutrophils # 14.2 H Lymphocytes # 0.2 L Monocytes # 0.5 Eosinophils # 0.0 Basophils # 0.0 Nucleated RBCs/100 WBC 0.5 H Sample Site ABG pH ABG pCO2 ABG pO2 ABG HCO3 ABG Total CO2 ABG O2 Saturation ABG Base Excess O2 Delivery Device Inspired O2 Sodium 142 Potassium 4.7 Chloride 111 H Carbon Dioxide 19 L BUN 102 H Creatinine 3.27 H Est GFR ( Amer) 17 L Est GFR (Non-Af Amer) 14 L BUN/Creatinine Ratio 31 H Glucose 161 H POC Glucose 150 H Calculated Osmolality 329 H Calcium 8.1 L 01/02/19 11:36 WBC RBC Hgb Hct MCV MCH MCHC RDW Plt Count MPV Immature Gran % Seg Neutrophils % Lymphocytes % Monocytes % Eosinophils % Basophils % Neutrophils # Lymphocytes # Monocytes # Eosinophils # Basophils # Nucleated RBCs/100 WBC Sample Site ABG pH ABG pCO2 ABG pO2 ABG HCO3 ABG Total CO2 ABG O2 Saturation ABG Base Excess O2 Delivery Device Inspired O2 Sodium Potassium Chloride Carbon Dioxide BUN Creatinine Est GFR ( Amer) Est GFR (Non-Af Amer) BUN/Creatinine Ratio Glucose POC Glucose 193 H Calculated Osmolality Calcium - Impressions Impressions Chest CT 12/31/18 11:00 IMPRESSION: 1. Stable 3.0 x 2.7 cm right apical mass. Adjacent small nodular densities at the right lung apex could represent intrapulmonary metastasis. Adjacent interlobular septal thickening has increased from the prior exam, and could be related to asymmetric pulmonary edema or lymphangitic spread of tumor. 2. Trace left pleural effusion is decreased from the prior exam. Residual left basilar atelectasis and/or consolidation is present. The right pleural effusion seen on prior CT has resolved. 3. Unchanged enlarged right paratracheal lymph node, suspicious for metastasis. 4. Mucoid debris in the right-sided bronchi appear unchanged, although motion artifact limits evaluation. 5. Small amount of ascites and diffuse body wall anasarca is unchanged. D/ : / 12/31/2018 12:10:24 Khanh Marie MD / Toyin Wesley Interpreting Provider: Khanh Marie MD - ABG Interpretation ABG results: ABG ABG pH 7.22 pH Units (7.32-7.45) L 01/01/19 13:43 ABG pCO2 53 mmHg (35-45) H 01/01/19 13:43 ABG pO2 25 mmHg (85-104) L* 01/01/19 13:43 ABG O2 Saturation 33 % (95-98) L 01/01/19 13:43 PT/INR, D-dimer PT 14.2 Seconds (9.4-12.1) H 12/26/18 18:10 Palliative Scale - Palliative Performance Scale How ambulatory is this patient?: Mainly in bed What is patient's level of activity and evidence of disease?: Unable to do any work, Extensive disease How much self-care assistance does patient require?: Considerable assistance required How much oral intake does the patient have?: Mouth care only What is this patient's level of consciousness?: Full Palliative Performance Score: 40 % Consult Discharge Plan - Plan Referrals: Michel Giron MD [Primary Care Provider] -
--- NOTE | 2019-01-02 17:34 | Oncology Inp Progress Note ---
Date of Encounter: 01/02/19 Time of Encounter: 11:30 (1) MARIE (acute kidney injury) Current Visit: Yes Status: Acute Assessment and plan: Continues to worse. Avoid nephrotoxic medications. Appreciate nephrology input. (2) Acute and chronic respiratory failure with hypoxia Current Visit: Yes Status: Acute (3) Non-small cell lung cancer Current Visit: No Status: Chronic Assessment and plan: She has chemotherapy and radiation resistant disease. On her last 2 visits, we discussed that this would be an incurable cancer at this point. The patient elected to proceed with palliative chemotherapy winifred at a reduced dose) with immunotherapy. After 15 minutes of immunotherapy, she became acutely hypoxic. Despite resuscitation efforts at the cancer center, she continued to remain hypoxic and hypotensive. Unfortunately , she remains BiPAP dependent. She has been made DNR CCA, but she and the family are not yet ready for hospice. I discussed with the family that is unlikely she will recover from this been given her severe COPD/emphysema. For now, the patient and family like to persist on with BiPAP. I did ask them to plan for the worst. If over the next few days she does not improve, withdrawal of care will need to be considered. Otherwise, we will be prolonging her suffering. We will continue with supportive measures of steroids and respiratory therapy. I again emphasized that feeding tube placement is not recommended. It would not provide improve survival, not improve her quality of life and would actually likely worsen quality of life. Palliative care assistance appreciated. Qualifiers: Laterality: unspecified laterality Qualified Code(s): C34.90 - Malignant neoplasm of unspecified part of unspecified bronchus or lung (4) Acute and chronic respiratory failure with hypoxia Current Visit: Yes Status: Acute Assessment and plan: Antibiotics discontinued. She continues on steroids and aggressive respiratory therapies. She is on BiPAP. Continue current measures by the pulmonary team. No new recommendations. If symptoms not improve, withdrawal of care will need to be considered. 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 Kumar continues to be BiPAP dependent. She is awake and alert but unable to participate in the conversation secondary to be on BiPAP. She is very fatigued and tired. She remains very short of breath. No fever or chills. Kidney function continues to decline despite supportive measures. Broad-spectrum box have been discontinued but she continues on IV steroids and breathing treatments. Her daughter, son, sister and family are at her bedside. There was discussion regarding feeding tube placement. Surgery has recommend against this appropriately. - Constitutional General appearance: disheveled, mild distress - Head Head exam: Present: atraumatic, normal inspection, normocephalic - Eye Eye exam: Present: normal appearance, conjuntiva pink, sclera anicteric - ENT ENT exam: Present: mucous membranes moist, normal external ear exam - Neck Neck exam: Present: full ROM, normal inspection - Respiratory Respiratory exam: Present: decreased breath sounds, respiratory distress, rhonchi - Cardiovascular Cardiovascular exam: Present: tachycardia - GI/Abdominal GI/Abdominal exam: Present: normal bowel sounds - Extremities Exam Extremities exam: Present: normal inspection, pedal edema - Neurological Exam Neurological exam: Present: alert, CN II-XII intact, no focal deficits Oncology: Obj Data - Labs CBC & Chem 7: 01/02/19 03:45 01/02/19 03:45 Consult Discharge Plan - Plan Referrals: Michel Giron MD [Primary Care Provider] - Inpatient Charges Provider: Dr. Nicole Villasenor Follow up - Inpatient: [id number]
[2019-01-02] MEDS ORDERED: Dextrose Gel 15 GM/37.5 ML TUBE PO PRN ×2 (19:33)
[2019-01-02] MEDS ORDERED: Ipratropium/Albuterol Neb 3 ML IH PRN (19:33)
[2019-01-03] MEDS: Insulin LISPRO 300 UNITS/3 ML VIAL SQ SCH ×4 (01:22→18:13)
[2019-01-03 05:01] LABS: Calcium 5.4 mg/dL (8.6-10.3); Potassium 3.1 mEq/L (3.5-5.1)
[2019-01-03 05:04] LABS: ABG Base Excess -9 mEq/L (-2 to 3); ABG HCO3 21 mEq/L (21-27); ABG Oxygen Saturation 86 % (95-98); ABG PCO2 64 mmHg (35-45); ABG PH 7.13 pH Units (7.32-7.45); ABG PO2 68 mmHg (85-104); ABG TCO2 23 mEq/L (20-26)
[2019-01-03] MEDS: D5% in 0.45% NACL 1,000 ML IVC SCH (05:09)
[2019-01-03] MEDS: *HR* Heparin 5,000 UNIT/ML VIAL SQ SCH ×2 (05:09→18:13)
[2019-01-03] MEDS: Aspirin 81 MG TAB.CHEW PO SCH (07:31)
[2019-01-03] MEDS: Budesonide/Formoterol 80/4.5 MDI IH SCH ×2 (07:36→22:42)
[2019-01-03] MEDS: MethylPREDNISolone 40 MG/ML VIAL IVP SCH (07:42)
--- NOTE | 2019-01-03 08:54 | Event Note ---
Date of Encounter: 01/03/19 Time of Encounter: 08:53 - Nephrology Event Note Nephrology chart update Given the patient's change in goals of care, I will politely sign off at this time. Please feel free to call or page me if any questions.
[2019-01-03] MEDS ORDERED: MethylPREDNISolone 40 MG/ML VIAL IVP SCH (09:00)
[2019-01-03 09:07] LABS: Magnesium 1.7 mg/dL (1.6-2.6)
--- NOTE | 2019-01-03 09:59 | Oncology Inp Progress Note ---
Date of Encounter: 01/03/19 Time of Encounter: 11:00 (1) MARIE (acute kidney injury) Current Visit: Yes Status: Acute Assessment and plan: Indices improving. Nephrology has signed off. No new recommendations. (2) Non-small cell lung cancer Current Visit: No Status: Chronic Assessment and plan: She has chemotherapy and radiation resistant disease. She is not a treatment candidate moving forward. Unfortunately , she remains BiPAP dependent. She has been made DNR CCA, and I have recommended hospice care; they are not ready for this as of yet. We will continue to reassess moving forward and will discuss during the forthcoming days. We will continue with supportive measures of steroids and respiratory therapy. Palliative care assistance appreciated Qualifiers: Laterality: unspecified laterality Qualified Code(s): C34.90 - Malignant neoplasm of unspecified part of unspecified bronchus or lung (3) Acute and chronic respiratory failure with hypoxia Current Visit: Yes Status: Acute Assessment and plan: Antibiotics discontinued. She continues on steroids and aggressive respiratory therapies. She is on BiPAP and wants to continue with this today. No new recommendations. If symptoms not improve, withdrawal of care will need to be considered. 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 Kumar continues to struggle. She is getting restless on BiPAP. She attempts to right for me but unfortunately, it is incomprehensible. She has any pain currently. No fever, chill. Coughing intermittently. Very fatigued and tired. Did not sleep well last night. Family is at bedside. - Constitutional General appearance: disheveled, mild distress, obese - Head Head exam: Present: atraumatic, normal inspection, normocephalic - Eye Eye exam: Present: normal appearance, sclera anicteric - ENT ENT exam: Present: mucous membranes moist, normal exam - Neck Neck exam: Present: full ROM, normal inspection - Respiratory Respiratory exam: Present: decreased breath sounds, rhonchi - Cardiovascular Cardiovascular exam: Present: RRR - GI/Abdominal GI/Abdominal exam: Present: normal bowel sounds, soft - Extremities Exam Extremities exam: Present: normal inspection - Back Exam Back exam: Present: normal inspection - Neurological Exam Neurological exam: Present: alert, CN II-XII intact, no focal deficits Oncology: Obj Data - Labs CBC & Chem 7: 01/02/19 03:45 01/03/19 Unknown Consult Discharge Plan - Plan Referrals: Michel Giron MD [Primary Care Provider] - Inpatient Charges Provider: Dr. Nicole Villasenor Follow up - Inpatient: [id number]
[2019-01-03] MEDS ORDERED: Calcium Gluconate 2,000 MG in 0.9 % Sodium Chloride 100 ML IVPB ONE (12:34)
[2019-01-03] MEDS ORDERED: Potassium Chloride 40 MEQ, Lidocaine 1% 2 ML in D5% in Water 500 ML IVPB ONE (12:35)
[2019-01-03] MEDS ORDERED: *HR* LORazepam 2 MG/ML VIAL IVP PRN (12:37)
--- NOTE | 2019-01-03 12:40 | Internal Med Progress Note ---
Hospitalist Progress Note - Encounter Date of Encounter: 01/03/19 Time of Encounter: 12:38 - Subjective Interval History: I have talked to the pt and asked the pt about her expecatation and I have talked to the son PRESTON and the daughter as well. It seems that the daughter wants the mother to live as long as possible, the son stated that he wants the mask on. - Exam Vitals: Temp Pulse Resp BP Pulse Ox 97.2 F L 94 20 105/70 94 01/03/19 11:10 01/03/19 11:10 01/03/19 11:10 01/03/19 11:10 01/03/19 11:10 Exam: Gen: acute reps distress on bipap neck: supple, no JVD Heart: s1, S2 RRR lungs: corse breath sounds through out Abd: soft, mild tenderness, BS + LE: 2+ edema DVT Prophylaxis: patient on a heparin drip. - Summary of Assessment and Plan Summary of Assessment and Plan: Assessment and Plan This is a 63 yof who presented with dying from non small lung cancer. (1) Acute and chronic respiratory failure with hypoxia and hypercapnia: Cancer realted, post obstrutive pna vs. pna vs. bronchospasm Pt's ABG is trending the wrong direciton, pt is deteraiting, at this point, we are recommending comfort care, however, family has a tough time to be emotioanl ready. --cont bipap support --cont steroid (2) Pneumonia pt was treated with fully for 10 days Qualifiers: Pneumonia type: due to unspecified organism Laterality: right Lung location: lower lobe of lung Qualified Code(s): J18.1 - Lobar pneumonia, un specified organism (3) Non-small cell lung cancer Pt is dying and pt needs hospice (4) (HFpEF) heart failure with preserved ejection fraction pt is on lasix we will continue lasix (5) Essential hypertension Current Visit: Yes Status: Chronic Is a chronic patient of hypertension under medication Hypertension blood pressure is 110/55 He was taking metoprolol 12.5 MG twice a day, it is on hold because of hypertension (6) Pleural effusion Current Visit: Yes Status: Acute Patient has minimal bilateral pleural effusion, seen in CTA chest. It was very minimal on latest x-ray done today. Resolving with IV antibiotics. (7) Dispo: Pt is dying, and family is not ready for comfort care, I told the family that pt can any minute. we will replace the mag and K and try to make numbers look better, pt is suffering, unfortuantely, pt family is not ready for comfort care. We have no choice but follow POA's wishes. Time: 35 min - Time Spent with Patient Total time spent is greater than 50% in coordination of care (as documented) at patient's floor/unit and/or counseling patient: Internal Medicine: Result - Labs CBC & Chem 7: 01/02/19 03:45 01/03/19 Unknown Labs: BMP 01/03/19 Unknown Sodium 142 Potassium 3.1 L Chloride 118 H Carbon Dioxide 14 L BUN 85 H Creatinine 2.73 H Glucose 294 H Calcium 5.4 L* - ABG Interpretation ABG results: ABG ABG pH 7.13 pH Units (7.32-7.45) L* 01/03/19 05:01 ABG pCO2 64 mmHg (35-45) H 01/03/19 05:01 ABG pO2 68 mmHg (85-104) L 01/03/19 05:01 ABG O2 Saturation 86 % (95-98) L 01/03/19 05:01 PT/INR, D-dimer PT 14.2 Seconds (9.4-12.1) H 12/26/18 18:10 Consult Discharge Plan - Plan Referrals: Michel Giron MD [Primary Care Provider] -
--- NOTE | 2019-01-03 13:08 | Palliative Progress Note ---
Date of Encounter: 01/03/19 Time of Encounter: 09:00 - Assessment and plan (1) Goals of care, counseling/discussion Current Visit: Yes Status: Acute Assessment and plan: Met with patient and family present at beside. Patient able to participate in conversation. Reviewed current medical condition, discussed that Surgery and Nephrology have made the decision for no further interventions from their perspectives. Oncology has also signed off case as she is not a cancer treatment candidate due to her medical status. Primary RN reported Dr. Em had requested MPOA be notified of need to make decision regarding care as patient is having difficulty doing so. Planned meeting with Dr. Em and MPOA in place this morning. Requested notification on arrival. This card writer hand was actually present when patient's Son arrived and initiated conversation regarding goals of care. Notified Primary RN to inform Dr. Em of his arrival. Evaluated son's understanding of current clinical status, he reports, "I understand what is going on, she is dying, but I asked her if she was ready to pull the plug and she said no so we are going to continue." Attempted to explain that it is not necessarily pulling the plug, but changing the goals to that of comfort. Explained to patient, son and daughter present that medications are available to help her be comfortable and she would be comfortable prior to removing BiPAP. Family immediately met with resistance and reported they need more time to allow patient to try to get better. 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 Family verbalized understanding. Palliative care will continue to follow and provide emotional support for patient and family during this time of transition. (2) MARIE (acute kidney injury) Current Visit: Yes Status: Acute Assessment and plan: BUN 85. Cr 2.73. Dialysis is not an option. (3) Acute and chronic respiratory failure with hypoxia Current Visit: Yes Status: Acute Assessment and plan: Patient remains BiPAP dependent at this time. (4) COPD (chronic obstructive pulmonary disease) Current Visit: Yes Status: Chronic Qualifiers: COPD type: emphysema Emphysema type: centrilobular Qualified Code(s): J43.2 - Centrilobular emphysema (5) Non-small cell lung cancer Current Visit: No Status: Chronic Assessment and plan: Oncology reports patient is not a candidate for treatment. 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 Patient appears quite tired. Patient reports increased anxiety and dyscomfort. Describes being swollen and unable to remove BiPAP. Patient's daughter Sharla, Grandson Chidi, Granddaughter Brea present at bedside. Reports patient's MPOPhilip Chandler is coming to bedside. Patient has been unable to eat since admission. - Constitutional Vitals: Abnormal lab results WBC 15.3 K/mcL (4.3-11.1) H 01/02/19 03:45 MCHC 30.0 g/dL (31.6-35.5) L 01/02/19 03:45 RDW 15.4 % (11.5-14.5) H 01/02/19 03:45 Plt Count 118 K/mcL (140-400) L 01/02/19 03:45 Neutrophils # 14.2 K/mcL (1.6-8.9) H 01/02/19 03:45 Lymphocytes # 0.2 K/mcL (0.6-4.6) L 01/02/19 03:45 Nucleated RBCs/100 WBC 0.5 /100 WBC (0) H 01/02/19 03:45 PT 14.2 Seconds (9.4-12.1) H 12/26/18 18:10 APTT 38.6 Seconds (26.0-36.0) H 12/23/18 15:36 Heparin Anti-Xa, Unfract 0.00 IU/mL (0.30-0.70) L 01/01/19 04:30 ABG pH 7.13 pH Units (7.32-7.45) L* 01/03/19 05:01 ABG pCO2 64 mmHg (35-45) H 01/03/19 05:01 ABG pO2 68 mmHg (85-104) L 01/03/19 05:01 ABG O2 Saturation 86 % (95-98) L 01/03/19 05:01 ABG Base Excess -9 mEq/L (-2 to 3) L 01/03/19 05:01 Potassium 3.1 mEq/L (3.5-5.1) L 01/03/19 Unknown Chloride 118 mEq/L (98-107) H 01/03/19 Unknown Carbon Dioxide 14 mEq/L (23-29) L 01/03/19 Unknown BUN 85 mg/dL (8-23) H 01/03/19 Unknown Creatinine 2.73 mg/dL (0.60-1.20) H 01/03/19 Unknown Est GFR ( Amer) 21 (> 60) L 01/03/19 Unknown Est GFR (Non-Af Amer) 18 (> 60) L 01/03/19 Unknown BUN/Creatinine Ratio 31 (6-26) H 01/03/19 Unknown Glucose 294 mg/dL (70-105) H 01/03/19 Unknown POC Glucose 220 mg/dL (70-99) H 01/02/19 19:19 Calculated Osmolality 331 (280-300) H 01/03/19 Unknown Uric Acid 11.5 mg/dL (2.3-7.6) H 12/30/18 04:30 Calcium 5.4 mg/dL (8.6-10.3) L* 01/03/19 Unknown Phosphorus 6.2 mg/dL (2.7-4.5) H 12/28/18 04:35 AST 101 Units/L (13-39) H 12/27/18 02:20 ALT 255 Units/L (7-52) H 12/27/18 02:20 Lactate Dehydrogenase 380 Units/L (140-271) H 12/26/18 01:30 Troponin I 0.66 ng/mL (< 0.04) H* 12/29/18 00:20 B-Natriuretic Peptide 1332 pg/mL (Less than 100) H 12/23/18 15:36 Serum Total Protein 5.3 g/dL (6.4-8.9) L 12/27/18 02:20 Total Protein (PEP) 5.60 g/dL (6.00-8.30) L 12/25/18 16:09 Albumin 3.4 g/dL (3.5-5.7) L 12/27/18 02:20 Albumin (PEP) 3.21 g/dL (3.75-5.01) L 12/25/18 16:09 Globulin 1.9 g/dL (2.4-3.5) L 12/27/18 02:20 25-OH Vitamin D Total 13 ng/mL (30-80) L 12/25/18 15:54 PTH Intact 285.6 pg/ml (10.0-65.0) H 12/25/18 15:54 Urine Clarity Cloudy (Clear) A 12/29/18 13:45 Ur Specific [place] > 1.030 (1.010-1.025) H 12/29/18 13:45 Urine Protein 30 mg/dL (Neg-Trace) H 12/29/18 13:45 Urine Blood Trace (Negative) H 12/29/18 13:45 Urine Microscopic WBC 15-30 per hpf (0-3) H 12/29/18 13:45 Ur Squamous Epith Cells Many per lpf (None-Few) H 12/29/18 13:45 Amorphous Sediment Many (Few) H 12/26/18 17:25 IgG 665 mg/dL (768-1632) L 12/25/18 16:09 IgM 33 mg/dL (35-263) L 12/25/18 16:09 Complement C3 57 mg/dL (87-200) L 12/25/18 15:54 Complement C4 15 mg/dL (19-52) L 12/25/18 15:54 Free [place] LC, Quant 4.28 mg/dL (0.33-1.94) H 12/25/18 16:09 Free [place]/Lambda Ratio 1.76 (0.26-1.65) H 12/25/18 16:09 Hep Bs Antibody < 3.10 mIU/mL (10.00-) L 12/25/18 16:09 General appearance: Present: cooperative, disheveled, mild distress, obese - Head Head exam: Present: normal inspection - Eye Eye exam: Present: normal appearance, periorbital swelling, periorbital tenderness Pupils: Present: normal accommodation - ENT ENT exam: Present: mucous membranes dry, normal external ear exam - Neck Neck exam: Present: full ROM, normal inspection - Respiratory Respiratory exam: Present: accessory muscle use, decreased breath sounds, rhonchi, wheezes - Cardiovascular Cardiovascular exam: Present: +S1, +S2 - GI/Abdominal GI/Abdominal exam: Present: distended, hypoactive bowel sounds, soft. Absent: guarding, tenderness - Rectal Rectal exam: Present: deferred - Expanded Exam Female exam: Present: deferred - Extremities Exam Extremities exam: Present: normal inspection. Absent: calf tenderness, pedal edema, tenderness - Back Exam Back exam: Present: normal inspection - Neurological Exam Neurological exam: Present: alert, oriented X3, strengths equal and symetr throughout (patient now quite weak.). Absent: altered - Psychiatric Psychiatric exam: Present: anxious - Skin Skin exam: Present: dry, pallor, petechiae, warm. Absent: erythema, mottled Palliative Quality Palliative Quality: Screen for Code Status: Yes, Screen for Goals of Care: Yes, Screen for Pain: Yes, If Pain Regimen Started, Initiate Bowel Regimen: NA, Screen for Nausea/Vomitting: Yes Code Status: 12/23/18 20:11 Resuscitation Status: Active [RES] Stat Comment: Resuscitation Status: Full Code 12/29/18 11:55 DNR [Resuscitation Status: Active] [RES] Routine Comment: State form completed; patient signed. Resuscitation Status: DNR-Comfort Care-Arrest 01/02/19 16:35 Resuscitation Status: Active [RES] Routine Comment: Resuscitation Status: [id number] - Labs CBC & Chem 7: 01/02/19 03:45 01/03/19 Unknown Labs: Laboratory Results - last 24 hr 01/02/19 01/02/19 01/03/19 18:16 19:19 05:01 Sample Site L Radial ABG pH 7.13 L* ABG pCO2 64 H ABG pO2 68 L ABG HCO3 21 ABG Total CO2 23 ABG O2 Saturation 86 L ABG Base Excess -9 L Alok Test N/A O2 Delivery Device BiPAP Inspired O2 70.0 Sodium Potassium Chloride Carbon Dioxide BUN Creatinine Est GFR ( Amer) Est GFR (Non-Af Amer) BUN/Creatinine Ratio Glucose POC Glucose 220 H 220 H Calculated Osmolality Calcium Magnesium 01/03/19 Unknown Sample Site ABG pH ABG pCO2 ABG pO2 ABG HCO3 ABG Total CO2 ABG O2 Saturation ABG Base Excess Alok Test O2 Delivery Device Inspired O2 Sodium 142 Potassium 3.1 L Chloride 118 H Carbon Dioxide 14 L BUN 85 H Creatinine 2.73 H Est GFR ( Amer) 21 L Est GFR (Non-Af Amer) 18 L BUN/Creatinine Ratio 31 H Glucose 294 H POC Glucose Calculated Osmolality 331 H Calcium 5.4 L* Magnesium 1.7 - ABG Interpretation ABG results: ABG ABG pH 7.13 pH Units (7.32-7.45) L* 01/03/19 05:01 ABG pCO2 64 mmHg (35-45) H 01/03/19 05:01 ABG pO2 68 mmHg (85-104) L 01/03/19 05:01 ABG O2 Saturation 86 % (95-98) L 01/03/19 05:01 PT/INR, D-dimer PT 14.2 Seconds (9.4-12.1) H 12/26/18 18:10 Palliative Scale - Palliative Performance Scale How ambulatory is this patient?: Totally bed bound What is patient's level of activity and evidence of disease?: Unable to do any activity, Extensive disease How much self-care assistance does patient require?: Total care How much oral intake does the patient have?: Mouth care only What is this patient's level of consciousness?: Full or drowsy with or without confusion Palliative Performance Score: 20 % Consult Discharge Plan - Plan Referrals: Michel Giron MD [Primary Care Provider] -
[2019-01-03] MEDS: Sodium Bicarbonate 150 MEQ in D5% in Water 1,000 ML IVC SCH (13:52)
[2019-01-03 15:36] LABS: Calcium 8.4 mg/dL (8.6-10.3); Potassium 5.1 mEq/L (3.5-5.1)
[2019-01-04] MEDS: Insulin LISPRO 300 UNITS/3 ML VIAL SQ SCH ×4 (05:34→17:56)
[2019-01-04] MEDS: *HR* Heparin 5,000 UNIT/ML VIAL SQ SCH ×2 (05:35→17:56)
[2019-01-04] MEDS: Aspirin 81 MG TAB.CHEW PO SCH (09:21)
[2019-01-04] MEDS: MethylPREDNISolone 40 MG/ML VIAL IVP SCH (09:36)
--- NOTE | 2019-01-04 09:58 | Palliative Progress Note ---
Date of Encounter: 01/04/19 Time of Encounter: 08:45 - Assessment and plan (1) Goals of care, counseling/discussion Current Visit: Yes Status: Acute Assessment and plan: Met with patient's son Ramesh at bedside for approximately 25 minutes. Review patient's current clinical status and increased need for supplemental oxygen, as well as lack of ability to be aroused. Reviewed patient's clinical stay, including 12 days without anything to eat; verbalized understanding. Reviewed that despite patient being able to slightly nod head yes/no, patient may be unable to understand information being relayed. Ramesh explains he has lived through this " watch" before and has been without sleep, desires to continue current treatment plan as long as patient nods yes to continue to mask. Explained to patient and Ramesh that at any point that they would like to make patient comfortable and remove BiPAP can make that change as we are running out of options to keep patient alive; verbalized understanding. 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 Desires to continue current treatment plan at this time, requested follow up tomorrow. (2) MARIE (acute kidney injury) Current Visit: Yes Status: Acute Assessment and plan: BUN 112/Cr 3.81. No dialysis. (3) Acute and chronic respiratory failure with hypoxia Current Visit: Yes Status: Acute Assessment and plan: Oxygen saturation 98% on 80% BiPAP. (4) COPD (chronic obstructive pulmonary disease) Current Visit: Yes Status: Chronic Qualifiers: COPD type: emphysema Emphysema type: centrilobular Qualified Code(s): J43.2 - Centrilobular emphysema (5) Non-small cell lung cancer Current Visit: No Status: Chronic Assessment and plan: Oncology reports patient is not a candidate for treatment. 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 Patient appears quite tired. Patient reports increased pain and anxiety; however, refuses pain medication, per son's report. Patient minimally responsive. Patient's MPOA Ramesh present at bedside. Explained to Ramesh that despite patient answering for him, she may be unable to understand information being relayed; verbalized understanding. Ramesh explains he is just trying to follow his mother's wishes, that is why he is asking her many times throughout the day. Explained changes in BiPAP and increased need, expresses to continue current treatment plan. Hoa Murillo also present at bedside. - Constitutional Vitals: Abnormal lab results WBC 15.3 K/mcL (4.3-11.1) H 01/02/19 03:45 MCHC 30.0 g/dL (31.6-35.5) L 01/02/19 03:45 RDW 15.4 % (11.5-14.5) H 01/02/19 03:45 Plt Count 118 K/mcL (140-400) L 01/02/19 03:45 Neutrophils # 14.2 K/mcL (1.6-8.9) H 01/02/19 03:45 Lymphocytes # 0.2 K/mcL (0.6-4.6) L 01/02/19 03:45 Nucleated RBCs/100 WBC 0.5 /100 WBC (0) H 01/02/19 03:45 PT 14.2 Seconds (9.4-12.1) H 12/26/18 18:10 APTT 38.6 Seconds (26.0-36.0) H 12/23/18 15:36 Heparin Anti-Xa, Unfract 0.00 IU/mL (0.30-0.70) L 01/01/19 04:30 ABG pH 7.13 pH Units (7.32-7.45) L* 01/03/19 05:01 ABG pCO2 64 mmHg (35-45) H 01/03/19 05:01 ABG pO2 68 mmHg (85-104) L 01/03/19 05:01 ABG O2 Saturation 86 % (95-98) L 01/03/19 05:01 ABG Base Excess -9 mEq/L (-2 to 3) L 01/03/19 05:01 Potassium 3.1 mEq/L (3.5-5.1) L 01/03/19 Unknown Chloride 118 mEq/L (98-107) H 01/03/19 Unknown Carbon Dioxide 14 mEq/L (23-29) L 01/03/19 Unknown BUN 85 mg/dL (8-23) H 01/03/19 Unknown Creatinine 2.73 mg/dL (0.60-1.20) H 01/03/19 Unknown Est GFR ( Amer) 21 (> 60) L 01/03/19 Unknown Est GFR (Non-Af Amer) 18 (> 60) L 01/03/19 Unknown BUN/Creatinine Ratio 31 (6-26) H 01/03/19 Unknown Glucose 294 mg/dL (70-105) H 01/03/19 Unknown POC Glucose 214 mg/dL (70-99) H 01/03/19 15:14 Calculated Osmolality 331 (280-300) H 01/03/19 Unknown Uric Acid 11.5 mg/dL (2.3-7.6) H 12/30/18 04:30 Calcium 5.4 mg/dL (8.6-10.3) L* 01/03/19 Unknown Phosphorus 6.2 mg/dL (2.7-4.5) H 12/28/18 04:35 AST 101 Units/L (13-39) H 12/27/18 02:20 ALT 255 Units/L (7-52) H 12/27/18 02:20 Lactate Dehydrogenase 380 Units/L (140-271) H 12/26/18 01:30 Troponin I 0.66 ng/mL (< 0.04) H* 12/29/18 00:20 B-Natriuretic Peptide 1332 pg/mL (Less than 100) H 12/23/18 15:36 Serum Total Protein 5.3 g/dL (6.4-8.9) L 12/27/18 02:20 Total Protein (PEP) 5.60 g/dL (6.00-8.30) L 12/25/18 16:09 Albumin 3.4 g/dL (3.5-5.7) L 12/27/18 02:20 Albumin (PEP) 3.21 g/dL (3.75-5.01) L 12/25/18 16:09 Globulin 1.9 g/dL (2.4-3.5) L 12/27/18 02:20 25-OH Vitamin D Total 13 ng/mL (30-80) L 12/25/18 15:54 PTH Intact 285.6 pg/ml (10.0-65.0) H 12/25/18 15:54 Urine Clarity Cloudy (Clear) A 12/29/18 13:45 Ur Specific [place] > 1.030 (1.010-1.025) H 12/29/18 13:45 Urine Protein 30 mg/dL (Neg-Trace) H 12/29/18 13:45 Urine Blood Trace (Negative) H 12/29/18 13:45 Urine Microscopic WBC 15-30 per hpf (0-3) H 12/29/18 13:45 Ur Squamous Epith Cells Many per lpf (None-Few) H 12/29/18 13:45 Amorphous Sediment Many (Few) H 12/26/18 17:25 IgG 665 mg/dL (768-1632) L 12/25/18 16:09 IgM 33 mg/dL (35-263) L 12/25/18 16:09 Complement C3 57 mg/dL (87-200) L 12/25/18 15:54 Complement C4 15 mg/dL (19-52) L 12/25/18 15:54 Free [place] LC, Quant 4.28 mg/dL (0.33-1.94) H 12/25/18 16:09 Free [place]/Lambda Ratio 1.76 (0.26-1.65) H 12/25/18 16:09 Hep Bs Antibody < 3.10 mIU/mL (10.00-) L 12/25/18 16:09 General appearance: Present: disheveled, mild distress - Head Head exam: Present: atraumatic, normal inspection - Eye Eye exam: Present: normal appearance, periorbital swelling, conjuntiva pink. Absent: EOMI, periorbital tenderness - ENT ENT exam: Present: mucous membranes dry, normal external ear exam - Neck Neck exam: Present: normal inspection - Respiratory Respiratory exam: Present: accessory muscle use, decreased breath sounds, respiratory distress, rhonchi, wheezes - Cardiovascular Cardiovascular exam: Present: irregular rhythm - GI/Abdominal GI/Abdominal exam: Present: distended, hypoactive bowel sounds, soft. Absent: guarding, hernia, tenderness - Rectal Rectal exam: Present: deferred - Expanded Exam Female exam: Present: deferred - Extremities Exam Extremities exam: Present: pedal edema. Absent: normal inspection, tenderness - Back Exam Back exam: Present: normal inspection - Neurological Exam Neurological exam: Present: alert, altered. Absent: oriented X3, facial droop - Psychiatric Psychiatric exam: Present: anxious, flat affect - Skin Skin exam: Present: dry, intact, warm. Absent: cyanosis, diaphoretic, normal color (Bruising noted to bilateral forearms.) Palliative Quality Palliative Quality: Screen for Code Status: Yes, Screen for Goals of Care: Yes, Screen for Pain: Yes, If Pain Regimen Started, Initiate Bowel Regimen: NA, Screen for Nausea/Vomitting: Yes Code Status: 12/23/18 20:11 Resuscitation Status: Active [RES] Stat Comment: Resuscitation Status: Full Code 12/29/18 11:55 DNR [Resuscitation Status: Active] [RES] Routine Comment: State form completed; patient signed. Resuscitation Status: DNR-Comfort Care-Arrest 01/02/19 16:35 Resuscitation Status: Active [RES] Routine Comment: Resuscitation Status: [id number] - Labs CBC & Chem 7: 01/02/19 03:45 01/03/19 Unknown Labs: Laboratory Results - last 24 hr 01/03/19 01/03/19 01/03/19 11:29 13:00 15:14 Sodium 140 Potassium 5.1 D Chloride 109 H Carbon Dioxide 18 L BUN 112 H Creatinine 3.81 H Est GFR ( Amer) 15 L Est GFR (Non-Af Amer) 12 L BUN/Creatinine Ratio 29 H Glucose 188 H POC Glucose 176 H 214 H Calculated Osmolality 330 H Calcium 8.4 L - ABG Interpretation ABG results: ABG ABG pH 7.13 pH Units (7.32-7.45) L* 01/03/19 05:01 ABG pCO2 64 mmHg (35-45) H 01/03/19 05:01 ABG pO2 68 mmHg (85-104) L 01/03/19 05:01 ABG O2 Saturation 86 % (95-98) L 01/03/19 05:01 PT/INR, D-dimer PT 14.2 Seconds (9.4-12.1) H 12/26/18 18:10 Palliative Scale - Palliative Performance Scale How ambulatory is this patient?: Totally bed bound What is patient's level of activity and evidence of disease?: Unable to do any activity, Extensive disease How much self-care assistance does patient require?: Total care How much oral intake does the patient have?: Mouth care only What is this patient's level of consciousness?: Full or drowsy with or without confusion Palliative Performance Score: 20 % Consult Discharge Plan - Plan Referrals: Michel Giron MD [Primary Care Provider] -
--- NOTE | 2019-01-04 10:10 | Internal Med Progress Note ---
Hospitalist Progress Note - Encounter Date of Encounter: 01/04/19 Time of Encounter: 10:09 - Subjective Interval History: Pt is too weak to speak, and opened her eyes nodded yes and no. - Exam Vitals: Temp Pulse Resp BP Pulse Ox 97.2 F L 90 18 121/79 98 01/04/19 06:33 01/04/19 06:33 01/04/19 06:33 01/04/19 06:33 01/04/19 06:33 Exam: Gen: acute reps distress on bipap neck: supple, no JVD Heart: s1, S2 RRR lungs: corse breath sounds through out Abd: soft, mild tenderness, BS + LE: 2+ edema DVT Prophylaxis: patient on a heparin drip. - Summary of Assessment and Plan Summary of Assessment and Plan: Assessment and Plan This is a 63 yof who presented with dying from non small lung cancer. (1) Acute and chronic respiratory failure with hypoxia and hypercapnia: Cancer realted, post obstrutive pna vs. pna vs. bronchospasm Await the repeat ABG to come back. --cont bipap support --cont steroid (2) Pneumonia pt was treated with fully for 10 days Qualifiers: Pneumonia type: due to unspecified organism Laterality: right Lung location: lower lobe of lung Qualified Code(s): J18.1 - Lobar pneumonia, unspecified organism (3) Non-small cell lung cancer Pt is dying and pt needs hospice (4) (HFpEF) heart failure with preserved ejection fraction pt is on lasix we will continue lasix (5) Essential hypertension Current Visit: Yes Status: Chronic Is a chronic patient of hypertension under medication Hypertension blood pressure is 110/55 He was taking metoprolol 12.5 MG twice a day, it is on hold because of hypertension (6) Pleural effusion Current Visit: Yes Status: Acute Patient has minimal bilateral pleural effusion, seen in CTA chest. It was very minimal on latest x-ray done today. Resolving with IV antibiotics. (7) Dispo: Pt is dying, and family is not ready for comfort care, I told the family that pt can any minute. We will contine current supportive care per family wishes, pt is no code. Time: 35 min - Time Spent with Patient Total time spent is greater than 50% in coordination of care (as documented) at patient's floor/unit and/or counseling patient: Internal Medicine: Result - Labs CBC & Chem 7: 01/02/19 03:45 01/03/19 Unknown Labs: BMP 01/03/19 13:00 Sodium 140 Potassium 5.1 D Chloride 109 H Carbon Dioxide 18 L BUN 112 H Creatinine 3.81 H Glucose 188 H Calcium 8.4 L - ABG Interpretation ABG results: ABG ABG pH 7.13 pH Units (7.32-7.45) L* 01/03/19 05:01 ABG pCO2 64 mmHg (35-45) H 01/03/19 05:01 ABG pO2 68 mmHg (85-104) L 01/03/19 05:01 ABG O2 Saturation 86 % (95-98) L 01/03/19 05:01 PT/INR, D-dimer PT 14.2 Seconds (9.4-12.1) H 12/26/18 18:10 Consult Discharge Plan - Plan Referrals: Michel Giron MD [Primary Care Provider] -
[2019-01-04] MEDS: Budesonide/Formoterol 80/4.5 MDI IH SCH ×2 (11:43→20:44)
--- NOTE | 2019-01-04 11:49 | Oncology Inp Progress Note ---
Date of Encounter: 01/04/19 Time of Encounter: 12:15 (1) MARIE (acute kidney injury) Current Visit: Yes Status: Acute Assessment and plan: Indices stable. Metabolic acidosis identified Nephrology has signed off. No new recommendations. (2) Non-small cell lung cancer Current Visit: No Status: Chronic Assessment and plan: She is actively dying. She has both metabolic as well as respiratory acidosis. I informed the family in the next day or 2 that she will pass. Encouraged they contact family members who want to see her come shortly. I did advise him to use morphine if she starts to have discomfort or air hunger. They were averse to this. We will continue with supportive measures of steroids and respiratory therapy. Palliative care assistance appreciated Qualifiers: Laterality: unspecified laterality Qualified Code(s): C34.90 - Malignant neoplasm of unspecified part of unspecified bronchus or lung (3) Acute and chronic respiratory failure with hypoxia Current Visit: Yes Status: Acute Assessment and plan: \She continues on steroids and aggressive respiratory therapies. She is on BiPAP and family wants to continue with this today. She is actively dying. 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 In addition, she has a concomitant metabolic acidosis. She is currently lethargic. She awakens to voice but is unable to participate in conversation. Her mental status continues to decline. Both daughters are at bedside along with grandson. She denies any pain currently. - Constitutional General appearance: mild distress, obese - Head Head exam: Present: atraumatic, normal inspection, normocephalic - Eye Eye exam: Present: normal appearance, conjuntiva pink, sclera anicteric - ENT ENT exam: Present: normal exam - Neck Neck exam: Present: full ROM, normal inspection - Respiratory Respiratory exam: Present: decreased breath sounds, rhonchi - Cardiovascular Cardiovascular exam: Present: RRR - GI/Abdominal GI/Abdominal exam: Present: normal bowel sounds, soft - Extremities Exam Extremities exam: Present: normal inspection, pedal edema - Neurological Exam Neurological exam: Present: altered Oncology: Obj Data - Labs CBC & Chem 7: 01/02/19 03:45 01/04/19 13:45 Consult Discharge Plan - Plan Referrals: Michel Giron MD [Primary Care Provider] - Inpatient Charges Provider: Dr. Nicole Villasenor Follow up - Inpatient: [id number]
[2019-01-04] MEDS: Sodium Bicarbonate 150 MEQ in D5% in Water 1,000 ML IVC SCH (12:47)
[2019-01-04 14:29] LABS: Albumin 3.3 g/dL (3.5-5.7); Albumin/Globulin Ratio 1.7 (1.1-2.2); Bilirubin,Total 0.6 mg/dL (0.3-1.0); Calcium 8.2 mg/dL (8.6-10.3); Potassium 5.2 mEq/L (3.5-5.1); Total Protein 5.3 g/dL (6.4-8.9)
[2019-01-04 15:36] LABS: VBG HCO3 22 mEq/L (21-27); VBG PCO2 72 mmHg (41-51); VBG PO2 113 mmHg (25-50)
[2019-01-05] MEDS: Insulin LISPRO 300 UNITS/3 ML VIAL SQ SCH ×4 (00:10→17:11)
[2019-01-05 04:13] LABS: Mean Platelet Volume 12.3 fL (9.4-12.4); Nucleated Red Blood Cells 0.2 /100 WBC (0)
[2019-01-05 04:15] LABS: Hematocrit 36.5 % (35.3-44.9); Hemoglobin 10.9 g/dL (11.5-15.4); Mean Corpuscular HGB Conc 29.9 g/dL (31.6-35.5); Mean Corpuscular Hemoglobin 29.5 pg (28.0-33.3); Mean Corpuscular Volume 98.9 fL (83.0-100.0); Red Blood Count 3.69 M/mcL (3.82-4.97); Red Cell Distribution Width 15.1 % (11.5-14.5)
[2019-01-05 04:27] LABS: Platelet Count 88 K/mcL (140-400)
[2019-01-05 04:28] LABS: Albumin 3.3 g/dL (3.5-5.7); Albumin/Globulin Ratio 1.7 (1.1-2.2); Bilirubin,Total 0.7 mg/dL (0.3-1.0); Calcium 8.3 mg/dL (8.6-10.3); Potassium 5.3 mEq/L (3.5-5.1); Total Protein 5.3 g/dL (6.4-8.9)
[2019-01-05 04:44] LABS: Lymphocytes # 0.6 K/mcL (0.6-4.6); Monocytes # 1.2 K/mcL (0.0-1.3); Platelet Estimate Decreased (Normal)
[2019-01-05] MEDS: *HR* Heparin 5,000 UNIT/ML VIAL SQ SCH ×2 (04:46→17:13)
[2019-01-05] MEDS: Budesonide/Formoterol 80/4.5 MDI IH SCH ×2 (07:28→19:51)
[2019-01-05] MEDS: Aspirin 81 MG TAB.CHEW PO SCH (09:47)
[2019-01-05] MEDS: MethylPREDNISolone 40 MG/ML VIAL IVP SCH (09:47)
--- NOTE | 2019-01-05 10:39 | Internal Med Progress Note ---
Hospitalist Progress Note - Encounter Date of Encounter: 01/05/19 Time of Encounter: 10:37 - Subjective Interval History: Pt is respondign to verbal stimuli. But not able to speak on the bipap. - Exam Vitals: Temp Pulse Resp BP Pulse Ox 97.0 F L 84 16 106/69 100 01/05/19 09:45 01/05/19 09:45 01/05/19 09:45 01/05/19 09:45 01/05/19 09:45 Exam: Gen: acute reps distress on bipap neck: supple, no JVD Heart: s1, S2 RRR lungs: corse breath sounds through out Abd: soft, mild tenderness, BS + LE: 2+ edema DVT Prophylaxis: patient on a heparin drip. - Summary of Assessment and Plan Summary of Assessment and Plan: Assessment and Plan This is a 63 yof who presented with dying from non small lung cancer. (1) Acute and chronic respiratory failure with hypoxia and hypercapnia: Cancer realted, post obstrutive pna vs. pna vs. bronchospasm PT is actively dying --cont bipap support --cont steroid -- per familiy wishes (2) Pneumonia pt was treated with fully for 10 days Qualifiers: Pneumonia type: due to unspecified organism Laterality: right Lung lo cation: lower lobe of lung Qualified Code(s): J18.1 - Lobar pneumonia, unspecified organism (3) Non-small cell lung cancer Pt is dying and pt needs hospice (4) (HFpEF) heart failure with preserved ejection fraction pt is on lasix we will continue lasix (5) Essential hypertension Current Visit: Yes Status: Chronic Is a chronic patient of hypertension under medication Hypertension blood pressure is 110/55 He was taking metoprolol 12.5 MG twice a day, it is on hold because of hypertension (6) Pleural effusion Current Visit: Yes Status: Acute Patient has minimal bilateral pleural effusion, seen in CTA chest. It was very minimal on latest x-ray done today. Resolving with IV antibiotics. (7) Dispo: Pt is dying, and family is not ready for comfort care, pt is expiring, anticipate expiration in the next day or two. Time: 35 min - Time Spent with Patient Total time spent is greater than 50% in coordination of care (as documented) at patient's floor/unit and/or counseling patient: Internal Medicine: Result - Labs CBC & Chem 7: 03/25/19 03:48 01/05/19 03:48 Labs: Short CBC 01/05/19 Range/Units 03:48 WBC 14.8 H (4.3-11.1) K/mcL Hgb 10.9 L D (11.5-15.4) g/dL Hct 36.5 (35.3-44.9) % Plt Count 88 L (140-400) K/mcL Neutrophils # 13.0 H (1.6-8.9) K/mcL BMP 01/04/19 01/05/19 13:45 03:48 Sodium 139 142 Potassium 5.2 H 5.3 H Chloride 108 H 107 Carbon Dioxide 21 L 22 L BUN 119 H 128 H Creatinine 4.35 H 4.81 H Glucose 186 H 160 H Calcium 8.2 L 8.3 L Liver Function 01/04/19 01/05/19 Range/Units 13:45 03:48 Total Bilirubin 0.6 0.7 (0.3-1.0) mg/dL AST 9 L 8 L (13-39) Units/L ALT 30 26 (7-52) Units/L Alkaline Phosphatase 59 58 (34-104) Units/L Albumin 3.3 L 3.3 L (3.5-5.7) g/dL - ABG Interpretation ABG results: ABG ABG pH 7.13 pH Units (7.32-7.45) L* 01/03/19 05:01 ABG pCO2 64 mmHg (35-45) H 01/03/19 05:01 ABG pO2 68 mmHg (85-104) L 01/03/19 05:01 ABG O2 Saturation 86 % (95-98) L 01/03/19 05:01 PT/INR, D-dimer PT 14.2 Seconds (9.4-12.1) H 12/26/18 18:10 Consult Discharge Plan - Plan Referrals: Michel Giron MD [Primary Care Provider] -
--- NOTE | 2019-01-05 12:23 | Palliative Progress Note ---
Date of Encounter: 01/05/19 Time of Encounter: 10:00 - Assessment and plan (1) Goals of care, counseling/discussion Current Visit: Yes Status: Acute Assessment and plan: Met with patient's son Ramesh, he is the patient's POA. At this time patient was asleep. Ramesh stated that they still want to continue current respiratory suppo rt and IVF. States that are aware that patient is dying, but he believes she wishes to stay on the BiPAP until then. Patient refusing any anxiolytic or opioids. Remains DNRCCA and DNI. Palliative care will continue to follow. (2) Acute and chronic respiratory failure with hypoxia Current Visit: Yes Status: Acute Assessment and plan: Remains BiPAP dependent. Discussed with family, intubation is not appropriate. Family agreed for DNI. 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 At the time of exam, she was awake. Daughter Morena was present at the bedside, she stated in a cheerful voice that patient 'is awake and doing great". She stated that she did not want to be bothered with conversation and wanted me to return later when patient's son Ramesh is present. Patient nodded yes to agree with her daughter. - Constitutional Vitals: Abnormal lab results WBC 14.8 K/mcL (4.3-11.1) H 01/05/19 03:48 RBC 3.69 M/mcL (3.82-4.97) L 01/05/19 03:48 Hgb 10.9 g/dL (11.5-15.4) L D 01/05/19 03:48 MCHC 29.9 g/dL (31.6-35.5) L 01/05/19 03:48 RDW 15.1 % (11.5-14.5) H 01/05/19 03:48 Plt Count 88 K/mcL (140-400) L 01/05/19 03:48 Neutrophils # 13.0 K/mcL (1.6-8.9) H 01/05/19 03:48 Nucleated RBCs/100 WBC 0.2 /100 WBC (0) H 01/05/19 03:48 Platelet Estimate Decreased (Normal) L 01/05/19 03:48 Immature Plt Fraction 8.0 % (1.1-6.1) H 01/05/19 03:48 PT 14.2 Seconds (9.4-12.1) H 12/26/18 18:10 APTT 38.6 Seconds (26.0-36.0) H 12/23/18 15:36 Heparin Anti-Xa, Unfract 0.00 IU/mL (0.30-0.70) L 01/01/19 04:30 ABG pH 7.13 pH Units (7.32-7.45) L* 01/03/19 05:01 ABG pCO2 64 mmHg (35-45) H 01/03/19 05:01 ABG pO2 68 mmHg (85-104) L 01/03/19 05:01 ABG O2 Saturation 86 % (95-98) L 01/03/19 05:01 ABG Base Excess -9 mEq/L (-2 to 3) L 01/03/19 05:01 VBG pH 7.10 pH Units (7.32-7.42) L* 01/04/19 15:29 VBG pCO2 72 mmHg (41-51) H* 01/04/19 15:29 VBG pO2 113 mmHg (25-50) H 01/04/19 15:29 Potassium 5.3 mEq/L (3.5-5.1) H 01/05/19 03:48 Carbon Dioxide 22 mEq/L (23-29) L 01/05/19 03:48 BUN 128 mg/dL (8-23) H 01/05/19 03:48 Creatinine 4.81 mg/dL (0.60-1.20) H 01/05/19 03:48 Est GFR ( Amer) 11 (> 60) L 01/05/19 03:48 Est GFR (Non-Af Amer) 9 (> 60) L 01/05/19 03:48 BUN/Creatinine Ratio 27 (6-26) H 01/05/19 03:48 Glucose 160 mg/dL (70-105) H 01/05/19 03:48 POC Glucose 201 mg/dL (70-99) H 01/05/19 00:09 Calculated Osmolality 339 (280-300) H 01/05/19 03:48 Uric Acid 11.5 mg/dL (2.3-7.6) H 12/30/18 04:30 Calcium 8.3 mg/dL (8.6-10.3) L 01/05/19 03:48 Phosphorus 6.2 mg/dL (2.7-4.5) H 12/28/18 04:35 AST 8 Units/L (13-39) L 01/05/19 03:48 Lactate Dehydrogenase 380 Units/L (140-271) H 12/26/18 01:30 Troponin I 0.66 ng/mL (< 0.04) H* 12/29/18 00:20 B-Natriuretic Peptide 1332 pg/mL (Less than 100) H 12/23/18 15:36 Serum Total Protein 5.3 g/dL (6.4-8.9) L 01/05/19 03:48 Total Protein (PEP) 5.60 g/dL (6.00-8.30) L 12/25/18 16:09 Albumin 3.3 g/dL (3.5-5.7) L 01/05/19 03:48 Albumin (PEP) 3.21 g/dL (3.75-5.01) L 12/25/18 16:09 Globulin 2.0 g/dL (2.4-3.5) L 01/05/19 03:48 25-OH Vitamin D Total 13 ng/mL (30-80) L 12/25/18 15:54 PTH Intact 285.6 pg/ml (10.0-65.0) H 12/25/18 15:54 Urine Clarity Cloudy (Clear) A 12/29/18 13:45 Ur Specific [place] > 1.030 (1.010-1.025) H 12/29/18 13:45 Urine Protein 30 mg/dL (Neg-Trace) H 12/29/18 13:45 Urine Blood Trace (Negative) H 12/29/18 13:45 Urine Microscopic WBC 15-30 per hpf (0-3) H 12/29/18 13:45 Ur Squamous Epith Cells Many per lpf (None-Few) H 12/29/18 13:45 Amorphous Sediment Many (Few) H 12/26/18 17:25 IgG 665 mg/dL (768-1632) L 12/25/18 16:09 IgM 33 mg/dL (35-263) L 12/25/18 16:09 Complement C3 57 mg/dL (87-200) L 12/25/18 15:54 Complement C4 15 mg/dL (19-52) L 12/25/18 15:54 Free [place] LC, Quant 4.28 mg/dL (0.33-1.94) H 12/25/18 16:09 Free [place]/Lambda Ratio 1.76 (0.26-1.65) H 12/25/18 16:09 Hep Bs Antibody < 3.10 mIU/mL (10.00-) L 12/25/18 16:09 Exam: Vitals: Reviewed General: Obese, Alert and oriented. In mild respiratory distress on BiPAP Skin: Normal color, no rash, no lesions. HEENT: EOM, pupils equal, round and reactive. Cardiovascular: RRR, normal S1 & S2, no rubs, murmurs or gallops. Lungs: scattered b/l wheezes, rales on the left lower lobe, crackles. Abdomen: Obese, soft, non-tender, no rigidity. Extremities: bilateral edema, No deformity, tenderness, no joint swelling or clubbing. Neurological: No focal deficit Palliative Quality Palliative Quality: Screen for Code Status: Yes, Screen for Goals of Care: Yes, Screen for Pain: Yes, If Pain Regimen Started, Initiate Bowel Regimen: NA, Screen for Nausea/Vomitting: Yes Code Status: 12/23/18 20:11 Resuscitation Status: Active [RES] Stat Comment: Resuscitation Status: Full Code 12/29/18 11:55 DNR [Resuscitation Status: Active] [RES] Routine Comment: State form completed; patient signed. Resuscitation Status: DNR-Comfort Care-Arrest 01/02/19 16:35 Resuscitation Status: Active [RES] Routine Comment: Resuscitation Status: [id number] - Labs CBC & Chem 7: 01/05/19 03:48 01/05/19 03:48 Labs: Laboratory Results - last 24 hr 01/03/19 01/03/19 01/04/19 19:22 23:55 04:08 WBC RBC Hgb Hct MCV MCH MCHC RDW Plt Count MPV Seg Neutrophils % Lymphocytes % Monocytes % Neutrophils # Lymphocytes # Monocytes # Nucleated RBCs/100 WBC Platelet Estimate Immature Plt Fraction VBG pH VBG pCO2 VBG pO2 VBG HCO3 Sodium Potassium Chloride Carbon Dioxide BUN Creatinine Est GFR ( Amer) Est GFR (Non-Af Amer) BUN/Creatinine Ratio Glucose POC Glucose 206 H 206 H 221 H Calculated Osmolality Calcium Total Bilirubin AST ALT Alkaline Phosphatase Serum Total Protein Albumin Globulin Albumin/Globulin Ratio Person Notif of Crit 01/04/19 01/04/19 01/04/19 06:40 10:42 13:45 WBC RBC Hgb Hct MCV MCH MCHC RDW Plt Count MPV Seg Neutrophils % Lymphocytes % Monocytes % Neutrophils # Lymphocytes # Monocytes # Nucleated RBCs/100 WBC Platelet Estimate Immature Plt Fraction VBG pH VBG pCO2 VBG pO2 VBG HCO3 Sodium 139 Potassium 5.2 H Chloride 108 H Carbon Dioxide 21 L BUN 119 H Creatinine 4.35 H Est GFR ( Amer) 13 L Est GFR (Non-Af Amer) 10 L BUN/Creatinine Ratio 27 H Glucose 186 H POC Glucose 194 H 180 H Calculated Osmolality 331 H Calcium 8.2 L Total Bilirubin 0.6 AST 9 L ALT 30 Alkaline Phosphatase 59 Serum Total Protein 5.3 L Albumin 3.3 L Globulin 2.0 L Albumin/Globulin Ratio 1.7 Person Notif of Crit 01/04/19 01/04/19 01/04/19 15:29 16:28 19:19 WBC RBC Hgb Hct MCV MCH MCHC RDW Plt Count MPV Seg Neutrophils % Lymphocytes % Monocytes % Neutrophils # Lymphocytes # Monocytes # Nucleated RBCs/100 WBC Platelet Estimate Immature Plt Fraction VBG pH 7.10 L* VBG pCO2 72 H* VBG pO2 113 H VBG HCO3 22 Sodium Potassium Chloride Carbon Dioxide BUN Creatinine Est GFR ( Amer) Est GFR (Non-Af Amer) BUN/Creatinine Ratio Glucose POC Glucose 192 H 202 H Calculated Osmolality Calcium Total Bilirubin AST ALT Alkaline Phosphatase Serum Total Protein Albumin Globulin Albumin/Globulin Ratio Person Notif of Crit RAJNI GRAHAM 01/05/19 01/05/19 01/05/19 00:09 03:48 03:48 WBC 14.8 H RBC 3.69 L Hgb 10.9 L D Hct 36.5 MCV 98.9 MCH 29.5 MCHC 29.9 L RDW 15.1 H Plt Count 88 L MPV 12.3 Seg Neutrophils % 88.0 Lymphocytes % 4.0 Monocytes % 8.0 Neutrophils # 13.0 H Lymphocytes # 0.6 Monocytes # 1.2 Nucleated RBCs/100 WBC 0.2 H Platelet Estimate Decreased L Immature Plt Fraction 8.0 H VBG pH VBG pCO2 VBG pO2 VBG HCO3 Sodium 142 Potassium 5.3 H Chloride 107 Carbon Dioxide 22 L BUN 128 H Creatinine 4.81 H Est GFR ( Amer) 11 L Est GFR (Non-Af Amer) 9 L BUN/Creatinine Ratio 27 H Glucose 160 H POC Glucose 201 H Calculated Osmolality 339 H Calcium 8.3 L Total Bilirubin 0.7 AST 8 L ALT 26 Alkaline Phosphatase 58 Serum Total Protein 5.3 L Albumin 3.3 L Globulin 2.0 L Albumin/Globulin Ratio 1.7 Person Notif of Crit - ABG Interpretation ABG results: ABG ABG pH 7.13 pH Units (7.32-7.45) L* 01/03/19 05:01 ABG pCO2 64 mmHg (35-45) H 01/03/19 05:01 ABG pO2 68 mmHg (85-104) L 01/03/19 05:01 ABG O2 Saturation 86 % (95-98) L 01/03/19 05:01 PT/INR, D-dimer PT 14.2 Seconds (9.4-12.1) H 12/26/18 18:10 Palliative Scale - Palliative Performance Scale How ambulatory is this patient?: Totally bed bound What is patient's level of activity and evidence of disease?: Unable to do any activity, Extensive disease How much self-care assistance does patient require?: Total care How much oral intake does the patient have?: Mouth care only What is this patient's level of consciousness?: Full or drowsy with or without confusion Palliative Performance Score: 20 % Consult Discharge Plan - Plan Referrals: Michel Giron MD [Primary Care Provider] -
[2019-01-05] MEDS: Sodium Bicarbonate 150 MEQ in D5% in Water 1,000 ML IVC SCH (15:16)
--- NOTE | 2019-01-05 20:27 | Oncology Inp Progress Note ---
Date of Encounter: 01/05/19 Time of Encounter: 17:00 (1) MARIE (acute kidney injury) Current Visit: Yes Status: Acute Assessment and plan: Worsening. As patient is not receiving any further interventions, would recommend discontinuation of lab work (2) Non-small cell lung cancer Current Visit: No Status: Chronic Assessment and plan: She is actively dying. I did advise him to use morphine if she starts to have discomfort or air hunger. They remain averse to this. We will discontinue steroids. Palliative care assistance appreciated Qualifiers: Laterality: unspecified laterality Qualified Code(s): C34.90 - Malignant neoplasm of unspecified part of unspecified bronchus or lung (3) Acute and chronic respiratory failure with hypoxia Current Visit: Yes Status: Acute Assessment and plan: She is on BiPAP and family wants to continue with this today. She is actively dying. (4) 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 Assessment and plan: In remission Oncology: Subj Interval history: There is no significant change in her status. She is very somnolent but does awaken to voice. She has not interactive. Her son is present her bedside. She denies any pain. No other acute change to her health. Palliative care jewel luated the patient again today. No change in therapy has been permitted by the family. This is echoed with me as well - Constitutional General appearance: no acute distress, obese - Head Head exam: Present: atraumatic, normal inspection, normocephalic - Eye Eye exam: Present: normal appearance, conjuntiva pink, sclera anicteric - ENT ENT exam: Present: mucous membranes moist, normal exam - Neck Neck exam: Present: full ROM, normal inspection - Respiratory Respiratory exam: Present: decreased breath sounds - Cardiovascular Cardiovascular exam: Present: tachycardia - GI/Abdominal GI/Abdominal exam: Present: normal bowel sounds, soft - Extremities Exam Extremities exam: Present: normal inspection, pedal edema - Neurological Exam Neurological exam: Present: alert Oncology: Obj Data - Labs CBC & Chem 7: 01/05/19 03:48 01/05/19 03:48 Consult Discharge Plan - Plan Referrals: Michel Giron MD [Primary Care Provider] - Inpatient Charges Provider: Dr. Nicole Villasenor Follow up - Inpatient: [id number]
[2019-01-06] MEDS: Insulin LISPRO 300 UNITS/3 ML VIAL SQ SCH ×4 (00:15→17:27)
[2019-01-06 04:42] LABS: Basophils % 0.1 %; Hematocrit 34.7 % (35.3-44.9); Hemoglobin 10.6 g/dL (11.5-15.4); Immature Granulocytes % 0.9 % (0-4); Lymphocytes # 0.1 K/mcL (0.6-4.6); Lymphocytes % 0.6 %; Mean Corpuscular HGB Conc 30.5 g/dL (31.6-35.5); Mean Corpuscular Hemoglobin 30.3 pg (28.0-33.3); Mean Corpuscular Volume 99.1 fL (83.0-100.0); Mean Platelet Volume 11.7 fL (9.4-12.4); Monocytes # 0.9 K/mcL (0.0-1.3); Monocytes % 5.2 %; Neutrophils # 16.4 K/mcL (1.6-8.9); Nucleated Red Blood Cells 0.1 /100 WBC (0); Platelet Count 107 K/mcL (140-400); Red Cell Distribution Width 15.3 % (11.5-14.5); Segmented Neutrophils % 93.2 %
[2019-01-06 05:09] LABS: Alanine Aminotransferase 21 Units/L (7-52); Albumin 3.3 g/dL (3.5-5.7); Albumin/Globulin Ratio 1.6 (1.1-2.2); Alkaline Phosphatase 66 Units/L (34-104); Aspartate Amino Transferase 9 Units/L (13-39); Bilirubin,Total 0.7 mg/dL (0.3-1.0); Blood Urea Nitrogen > 130 mg/dL (8-23); Calcium 8.2 mg/dL (8.6-10.3); Carbon Dioxide 22 mEq/L (23-29); Chloride 104 mEq/L (98-107); Globulin 2.1 g/dL (2.4-3.5); Glucose 186 mg/dL (70-105); Platelet Estimate Slight Decrease (Normal); Potassium 5.2 mEq/L (3.5-5.1); Sodium 139 mEq/L (136-145); Total Protein 5.4 g/dL (6.4-8.9); eGFR For Non-African Americans 8 (> 60)
[2019-01-06] MEDS: *HR* Heparin 5,000 UNIT/ML VIAL SQ SCH ×2 (06:00→17:10)
[2019-01-06] MEDS: Budesonide/Formoterol 80/4.5 MDI IH SCH ×2 (07:44→20:12)
[2019-01-06] MEDS ORDERED: D5% in Water 1,000 ML IVC PRN (08:48)
[2019-01-06] MEDS ORDERED: *HR* Dextrose 50 % in Water (Syg) 50 ML SYRINGE IVP PRN (08:48)
--- NOTE | 2019-01-06 09:10 | Palliative Progress Note ---
Date of Encounter: 01/06/19 Time of Encounter: 08:40 - Assessment and plan (1) Goals of care, counseling/discussion Current Visit: Yes Status: Acute Assessment and plan: Met with patient's son Ramesh and Sharla present at bedside. Family desires to continue current plan of care. Explained patient is actively dying. Sharla grover ins in denial and wants to feed patient jello, explained risk of aspiration. Ramesh understands; however, wants to continue to follow his previously known wishes of his mother. Family to remain at bedside. (2) MARIE (acute kidney injury) Current Visit: Yes Status: Acute Assessment and plan: IVF decreased to 25 ml/hr. No dialysis. (3) Acute and chronic respiratory failure with hypoxia Current Visit: Yes Status: Acute Assessment and plan: Oxygen saturation 97% on 75% BiPAP. Encouraged patient's family to utilize Roxanol for comfort, remain opposed at this time. (4) COPD (chronic obstructive pulmonary disease) Current Visit: Yes Status: Chronic Qualifiers: COPD type: emphysema Emphysema type: centrilobular Qualified Code(s): J43.2 - Centrilobular emphysema (5) Non-small cell lung cancer Current Visit: No Status: Chronic Assessment and plan: Oncology reports patient is not a candidate for treatment. Patient's steroids discontinued to Oncology yesterday evening. Family verbalized understanding. 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 Patient not responding to verbal, tactile, or painful stimulation. Patient's daughter Sharla at bedside upon arrival, son Ramesh arrived during assessment. Sharla reports patient has been awake all night. Family denies patient reporting pain. Patient appears calm with no signs of anxiety present during assessment. - Constitutional Vitals: Abnormal lab results WBC 17.6 K/mcL (4.3-11.1) H 01/06/19 04:30 RBC 3.50 M/mcL (3.82-4.97) L 01/06/19 04:30 Hgb 10.6 g/dL (11.5-15.4) L 01/06/19 04:30 Hct 34.7 % (35.3-44.9) L 01/06/19 04:30 MCHC 30.5 g/dL (31.6-35.5) L 01/06/19 04:30 RDW 15.3 % (11.5-14.5) H 01/06/19 04:30 Plt Count 107 K/mcL (140-400) L 01/06/19 04:30 Neutrophils # 16.4 K/mcL (1.6-8.9) H 01/06/19 04:30 Lymphocytes # 0.1 K/mcL (0.6-4.6) L 01/06/19 04:30 Nucleated RBCs/100 WBC 0.1 /100 WBC (0) H 01/06/19 04:30 Platelet Estimate Slight Decrease (Normal) L 01/06/19 04:30 Immature Plt Fraction 8.0 % (1.1-6.1) H 01/05/19 03:48 PT 14.2 Seconds (9.4-12.1) H 12/26/18 18:10 APTT 38.6 Seconds (26.0-36.0) H 12/23/18 15:36 Heparin Anti-Xa, Unfract 0.00 IU/mL (0.30-0.70) L 01/01/19 04:30 ABG pH 7.13 pH Units (7.32-7.45) L* 01/03/19 05:01 ABG pCO2 64 mmHg (35-45) H 01/03/19 05:01 ABG pO2 68 mmHg (85-104) L 01/03/19 05:01 ABG O2 Saturation 86 % (95-98) L 01/03/19 05:01 ABG Base Excess -9 mEq/L (-2 to 3) L 01/03/19 05:01 VBG pH 7.10 pH Units (7.32-7.42) L* 01/04/19 15:29 VBG pCO2 72 mmHg (41-51) H* 01/04/19 15:29 VBG pO2 113 mmHg (25-50) H 01/04/19 15:29 Potassium 5.2 mEq/L (3.5-5.1) H 01/06/19 04:30 Carbon Dioxide 22 mEq/L (23-29) L 01/06/19 04:30 BUN > 130 mg/dL (8-23) H 01/06/19 04:30 Creatinine 5.22 mg/dL (0.60-1.20) H 01/06/19 04:30 Est GFR ( Amer) 10 (> 60) L 01/06/19 04:30 Est GFR (Non-Af Amer) 8 (> 60) L 01/06/19 04:30 Glucose 186 mg/dL (70-105) H 01/06/19 04:30 POC Glucose 197 mg/dL (70-99) H 01/06/19 03:46 Uric Acid 11.5 mg/dL (2.3-7.6) H 12/30/18 04:30 Calcium 8.2 mg/dL (8.6-10.3) L 01/06/19 04:30 Phosphorus 6.2 mg/dL (2.7-4.5) H 12/28/18 04:35 AST 9 Units/L (13-39) L 01/06/19 04:30 Lactate Dehydrogenase 380 Units/L (140-271) H 12/26/18 01:30 Troponin I 0.66 ng/mL (< 0.04) H* 12/29/18 00:20 B-Natriuretic Peptide 1332 pg/mL (Less than 100) H 12/23/18 15:36 Serum Total Protein 5.4 g/dL (6.4-8.9) L 01/06/19 04:30 Total Protein (PEP) 5.60 g/dL (6.00-8.30) L 12/25/18 16:09 Albumin 3.3 g/dL (3.5-5.7) L 01/06/19 04:30 Albumin (PEP) 3.21 g/dL (3.75-5.01) L 12/25/18 16:09 Globulin 2.1 g/dL (2.4-3.5) L 01/06/19 04:30 25-OH Vitamin D Total 13 ng/mL (30-80) L 12/25/18 15:54 PTH Intact 285.6 pg/ml (10.0-65.0) H 12/25/18 15:54 Urine Clarity Cloudy (Clear) A 12/29/18 13:45 Ur Specific [place] > 1.030 (1.010-1.025) H 12/29/18 13:45 Urine Protein 30 mg/dL (Neg-Trace) H 12/29/18 13:45 Urine Blood Trace (Negative) H 12/29/18 13:45 Urine Microscopic WBC 15-30 per hpf (0-3) H 12/29/18 13:45 Ur Squamous Epith Cells Many per lpf (None-Few) H 12/29/18 13:45 Amorphous Sediment Many (Few) H 12/26/18 17:25 IgG 665 mg/dL (768-1632) L 12/25/18 16:09 IgM 33 mg/dL (35-263) L 12/25/18 16:09 Complement C3 57 mg/dL (87-200) L 12/25/18 15:54 Complement C4 15 mg/dL (19-52) L 12/25/18 15:54 Free [place] LC, Quant 4.28 mg/dL (0.33-1.94) H 12/25/18 16:09 Free [place]/Lambda Ratio 1.76 (0.26-1.65) H 12/25/18 16:09 Hep Bs Antibody < 3.10 mIU/mL (10.00-) L 12/25/18 16:09 General appearance: Present: no acute distress, obese - Head Head exam: Present: atraumatic, normal inspection - Eye Eye exam: Present: normal appearance, periorbital swelling, conjuntiva pink. Absent: periorbital tenderness - ENT ENT exam: Present: mucous membranes dry, normal external ear exam - Neck Neck exam: Present: normal inspection. Absent: tenderness - Expanded Neck Exam Neck exam: Absent: anterior neck swelling - Respiratory Respiratory exam: Present: accessory muscle use, decreased breath sounds, rhonchi, wheezes - Cardiovascular Cardiovascular exam: Present: irregular rhythm - GI/Abdominal GI/Abdominal exam: Present: distended, hypoactive bowel sounds, soft. Absent: tenderness - Rectal Rectal exam: Present: deferred - Expanded Exam Female exam: Present: deferred - Extremities Exam Extremities exam: Present: pedal edema (generalized edema 2+) - Back Exam Back exam: Present: normal inspection - Neurological Exam Neurological exam: Present: altered. Absent: alert, facial droop - Psychiatric Psychiatric exam: Present: flat affect - Skin Skin exam: Present: dry, mottled (hands ), warm. Absent: diaphoretic Palliative Quality Palliative Quality: Screen for Code Status: Yes, Screen for Goals of Care: Yes, Screen for Pain: Yes, If Pain Regimen Started, Initiate Bowel Regimen: NA, Screen for Nausea/Vomitting: Yes Code Status: 12/23/18 20:11 Resuscitation Status: Active [RES] Stat Comment: Resuscitation Status: Full Code 12/29/18 11:55 DNR [Resuscitation Status: Active] [RES] Routine Comment: State form completed; patient signed. Resuscitation Status: DNR-Comfort Care-Arrest 01/02/19 16:35 Resuscitation Status: Active [RES] Routine Comment: Resuscitation Status: [id number] - Labs CBC & Chem 7: 01/06/19 04:30 01/06/19 04:30 Labs: Laboratory Results - last 24 hr 01/05/19 01/05/19 01/05/19 04:20 11:22 15:56 WBC RBC Hgb Hct MCV MCH MCHC RDW Plt Count MPV Immature Gran % Seg Neutrophils % Lymphocytes % Monocytes % Eosinophils % Basophils % Neutrophils # Lymphocytes # Monocytes # Eosinophils # Basophils # Nucleated RBCs/100 WBC Platelet Estimate Sodium Potassium Chloride Carbon Dioxide BUN Creatinine Est GFR ( Amer) Est GFR (Non-Af Amer) BUN/Creatinine Ratio Glucose POC Glucose 166 H 155 H 159 H Calculated Osmolality Calcium Total Bilirubin AST ALT Alkaline Phosphatase Serum Total Protein Albumin Globulin Albumin/Globulin Ratio 01/05/19 01/06/19 01/06/19 17:10 03:46 04:30 WBC 17.6 H RBC 3.50 L Hgb 10.6 L Hct 34.7 L MCV 99.1 MCH 30.3 MCHC 30.5 L RDW 15.3 H Plt Count 107 L MPV 11.7 Immature Gran % 0.9 Seg Neutrophils % 93.2 Lymphocytes % 0.6 Monocytes % 5.2 Eosinophils % 0.0 Basophils % 0.1 Neutrophils # 16.4 H Lymphocytes # 0.1 L Monocytes # 0.9 Eosinophils # 0.0 Basophils # 0.0 Nucleated RBCs/100 WBC 0.1 H Platelet Estimate Slight Decrease L Sodium Potassium Chloride Carbon Dioxide BUN Creatinine Est GFR ( Amer) Est GFR (Non-Af Amer) BUN/Creatinine Ratio Glucose POC Glucose 173 H 197 H Calculated Osmolality Calcium Total Bilirubin AST ALT Alkaline Phosphatase Serum Total Protein Albumin Globulin Albumin/Globulin Ratio 01/06/19 04:30 WBC RBC Hgb Hct MCV MCH MCHC RDW Plt Count MPV Immature Gran % Seg Neutrophils % Lymphocytes % Monocytes % Eosinophils % Basophils % Neutrophils # Lymphocytes # Monocytes # Eosinophils # Basophils # Nucleated RBCs/100 WBC Platelet Estimate Sodium 139 Potassium 5.2 H Chloride 104 Carbon Dioxide 22 L BUN > 130 H Creatinine 5.22 H Est GFR ( Amer) 10 L Est GFR (Non-Af Amer) 8 L BUN/Creatinine Ratio TNP Glucose 186 H POC Glucose Calculated Osmolality TNP Calcium 8.2 L Total Bilirubin 0.7 AST 9 L ALT 21 Alkaline Phosphatase 66 Serum Total Protein 5.4 L Albumin 3.3 L Globulin 2.1 L Albumin/Globulin Ratio 1.6 - ABG Interpretation ABG results: ABG ABG pH 7.13 pH Units (7.32-7.45) L* 01/03/19 05:01 ABG pCO2 64 mmHg (35-45) H 01/03/19 05:01 ABG pO2 68 mmHg (85-104) L 01/03/19 05:01 ABG O2 Saturation 86 % (95-98) L 01/03/19 05:01 PT/INR, D-dimer PT 14.2 Seconds (9.4-12.1) H 12/26/18 18:10 Palliative Scale - Palliative Performance Scale How ambulatory is this patient?: Totally bed bound What is patient's level of activity and evidence of disease?: Unable to do any activity, Extensive disease How much self-care assistance does patient require?: Total care How much oral intake does the patient have?: Mouth care only What is this patient's level of consciousness?: Full or drowsy with or without confusion Palliative Performance Score: 10 % Consult Discharge Plan - Plan Referrals: Michel Giron MD [Primary Care Provider] -
[2019-01-06] MEDS: Sodium Bicarbonate 150 MEQ in D5% in Water 1,000 ML IVC SCH (09:48)
--- NOTE | 2019-01-06 10:51 | Internal Med Progress Note ---
Hospitalist Progress Note - Encounter Date of Encounter: 01/06/19 Time of Encounter: 10:50 - Subjective Interval History: Pt is vearly responsive - Exam Vitals: Temp Pulse Resp BP Pulse Ox 97.3 F L 112 21 100/64 97 01/06/19 06:57 01/06/19 06:57 01/06/19 07:44 01/06/19 06:57 01/06/19 07:44 Exam: Gen: acute reps distress on bipap neck: supple, no JVD Heart: s1, S2 RRR lungs: corse breath sounds through out Abd: soft, mild tenderness, BS + LE: 2+ edema DVT Prophylaxis: patient on a heparin drip. - Summary of Assessment and Plan Summary of Assessment and Plan: Assessment and Plan This is a 63 yof who presented with dying from non small lung cancer. (1) Acute and chronic respiratory failure with hypoxia and hypercapnia: Cancer realted, post obstrutive pna vs. pna vs. bronchospasm PT is actively dying --cont bipap support --cont steroid -- per familiy wishes (2) Pneumonia pt was treated with fully for 10 days Qualifiers: Pneumonia type: due to unspecified organism Laterality: right Lung location: lower lobe of lung Qualified Code(s): J18.1 - Lobar pneumonia, unspecified organism (3) Non-small cell lung cancer Pt is dying and pt needs hospice (4) (HFpEF) heart failure with preserved ejection fraction pt is on lasix we will continue lasix (5) Essential hypertension Current Visit: Yes Status: Chronic Is a chronic patient of hypertension under medication Hypertension blood pressure is 110/55 He was taking metoprolol 12.5 MG twice a day, it is on hold because of hyperte nsion (6) Pleural effusion Current Visit: Yes Status: Acute Patient has minimal bilateral pleural effusion, seen in CTA chest. It was very minimal on latest x-ray done today. Resolving with IV antibiotics. (7) Dispo: Pt is dying, and family is not ready for comfort care, pt is expiring, anticipate expiration in the next day or two. Time: 35 min - Time Spent with Patient Total time spent is greater than 50% in coordination of care (as documented) at patient's floor/unit and/or counseling patient: Internal Medicine: Result - Labs CBC & Chem 7: 01/06/19 04:30 01/06/19 04:30 Labs: Short CBC 01/06/19 Range/Units 04:30 WBC 17.6 H (4.3-11.1) K/mcL Hgb 10.6 L (11.5-15.4) g/dL Hct 34.7 L (35.3-44.9) % Plt Count 107 L (140-400) K/mcL Neutrophils # 16.4 H (1.6-8.9) K/mcL BMP 01/06/19 04:30 Sodium 139 Potassium 5.2 H Chloride 104 Carbon Dioxide 22 L BUN > 130 H Creatinine 5.22 H Glucose 186 H Calcium 8.2 L Liver Function 01/06/19 Range/Units 04:30 Total Bilirubin 0.7 (0.3-1.0) mg/dL AST 9 L (13-39) Units/L ALT 21 (7-52) Units/L Alkaline Phosphatase 66 (34-104) Units/L Albumin 3.3 L (3.5-5.7) g/dL - ABG Interpretation ABG results: ABG ABG pH 7.13 pH Units (7.32-7.45) L* 01/03/19 05:01 ABG pCO2 64 mmHg (35-45) H 01/03/19 05:01 ABG pO2 68 mmHg (85-104) L 01/03/19 05:01 ABG O2 Saturation 86 % (95-98) L 01/03/19 05:01 PT/INR, D-dimer PT 14.2 Seconds (9.4-12.1) H 12/26/18 18:10 Consult Discharge Plan - Plan Referrals: Michel Giron MD [Primary Care Provider] -
[2019-01-07] MEDS: Insulin LISPRO 300 UNITS/3 ML VIAL SQ SCH ×4 (00:28→17:44)
[2019-01-07] MEDS: *HR* Heparin 5,000 UNIT/ML VIAL SQ SCH (06:35)
[2019-01-07] MEDS: Budesonide/Formoterol 80/4.5 MDI IH SCH ×2 (08:15→19:59)
--- NOTE | 2019-01-07 12:56 | Internal Med Progress Note ---
Hospitalist Progress Note - Encounter Date of Encounter: 01/07/19 Time of Encounter: 12:55 - Subjective Interval History: Pt is shaking and nodding her head, but I dont' thinnk she fully comprehends, the daughter Juany answered all questiosn for the pt without prompting. - Exam Vitals: Temp Pulse Resp BP Pulse Ox 97.4 F L 128 20 101/64 99 01/07/19 11:53 01/07/19 11:53 01/07/19 11:53 01/07/19 11:53 01/07/19 11:53 Exam: Gen: acute reps distress on bipap neck: supple, no JVD Heart: s1, S2 RRR lungs: corse breath sounds through out Abd: soft, mild tenderness, BS + LE: 2+ edema DVT Prophylaxis: patient on a heparin drip. - Summary of Assessment and Plan Summary of Assessment and Plan: Assessment and Plan This is a 63 yof who presented with dying from non small lung cancer. (1) Acute and chronic respiratory failure with hypoxia and hypercapnia: Cancer realted, post obstrutive pna vs. pna vs. bronchospasm PT is actively dying --cont bipap support --cont steroid -- per familiy wishes (2) Pneumonia pt was treated with fully for 10 days Qualifiers: Pneumonia type: due to unspecified organism Laterality: right Lung location: lower lobe of lung Qualified Code(s): J18.1 - Lobar pneumonia, unspecified organism (3) Non-small cell lung cancer Pt is dying and pt needs hospice (4) (HFpEF) heart failure with preserved ejection fraction pt is on lasix we will continue lasix (5) Essential hypertension Current Visit: Yes Status: Chronic Is a chronic patient of hypertension under medication Hypertension blood pressure is 110/55 He was taking metoprolol 12.5 MG twice a day, it is on hold because of hypertension (6) Pleural effusion Current Visit: Yes Status: Acute Patient has minimal bilateral pleural effusion, seen in CTA chest. It was very minimal on latest x-ray done today. Resolving with IV antibiotics. (7) Dispo: Pt is dying, and family is not ready for comfort care, pt is expiring, anticipate expiration in the next day or two. Time: 35 min - Time Spent with Patient Total time spent is greater than 50% in coordination of care (as documented) at patient's floor/unit and/or counseling patient: Internal Medicine: Result - Labs CBC & Chem 7: 01/06/19 04:30 01/06/19 04:30 - ABG Interpretation ABG results: ABG ABG pH 7.13 pH Units (7.32-7.45) L* 01/03/19 05:01 ABG pCO2 64 mmHg (35-45) H 01/03/19 05:01 ABG pO2 68 mmHg (85-104) L 01/03/19 05:01 ABG O2 Saturation 86 % (95-98) L 01/03/19 05:01 PT/INR, D-dimer PT 14.2 Seconds (9.4-12.1) H 12/26/18 18:10 Consult Discharge Plan - Plan Referrals: Michel Giron MD [Primary Care Provider] -
[2019-01-07] MEDS ORDERED: D5% in 0.9% NACL 1,000 ML IVC SCH (13:00)
[2019-01-07] MEDS: D5% in 0.9% NACL 1,000 ML IVC SCH (14:56)
[2019-01-07] MEDS: Sodium Bicarbonate 150 MEQ in D5% in Water 1,000 ML IVC SCH (17:00)
[2019-01-08] MEDS: Insulin LISPRO 300 UNITS/3 ML VIAL SQ SCH ×3 (00:30→12:00)
[2019-01-08] MEDS: Budesonide/Formoterol 80/4.5 MDI IH SCH ×3 (10:37→19:55)
[2019-01-08 11:19] VITALS: BP 89/48
--- NOTE | 2019-01-08 15:07 | Palliative Progress Note ---
Date of Encounter: 01/08/19 Time of Encounter: 15:04 - Assessment and plan (1) Goals of care, counseling/discussion Current Visit: Yes Status: Acute Assessment and plan: Further [facility] discussion with son Ramesh and grandjackelyn Murillo. Family met with hospitalist Dr Domínguez, now Ramesh stated he would be agreeable to allow patient to receive opioids, but not remove that BiPAP. I discussed with family that patient is dying from respiratory illness and as long as we continue to mechanically ventilate her, we are prolonging her dying process, pointed that patient is mottled from the feet up to her abdomen, and from the hands to her armpits. Explained that the more compassionate action would be removal of BiPAP, giving her comfort medication and allowing natural . Chidi couldn't bring himself to accept it. Finally decision was made to reduce gradually the 02 and RR from BiPAP, and medicate symptom with ativan and morphine IV. Ramesh would like to wait for Sharla's arrival around 16:30, to implement the changes. Code satus changed to DNRCC. (2) Acute and chronic respiratory failure with hypoxia Current Visit: Yes Status: Acute Assessment and plan: Remains BiPAP dependent. Is no longer able to tolerate PO or SL Ordered Morphine IV 1 mg q1hr prn will start reducing vent rate and oxygen delivery by BiPAP once patient's daughter Sharla arrives. (3) MARIE (acute kidney injury) Current Visit: Yes Status: Acute (4) Non-small cell lung cancer Current Visit: No Status: Chronic Qualifiers: Laterality: unspecified laterality Qualified Code(s): C34.90 - Malignant neoplasm of unspecified part of unspecified bronchus or lung (5) 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 (6) NSTEMI (non-ST elevated myocardial infarction) Current Visit: Yes Status: Acute - Time Spent With Patient Total time spent is greater than 50% in coordination of care (as documented) at patient's floor/unit and/or counseling patient: Greater than 35 minutes - Subjective Interval history: Patient is continued on BiPAP, day #16 with no PO intake.Today she is lethargic, not opening eyes and not interactive. Son Ramesh and Grandjackelyn Murillo were present at the bedside. - Constitutional Vitals: Abnormal lab results WBC 17.6 K/mcL (4.3-11.1) H 01/06/19 04:30 RBC 3.50 M/mcL (3.82-4.97) L 01/06/19 04:30 Hgb 10.6 g/dL (11.5-15.4) L 01/06/19 04:30 Hct 34.7 % (35.3-44.9) L 01/06/19 04:30 MCHC 30.5 g/dL (31.6-35.5) L 01/06/19 04:30 RDW 15.3 % (11.5-14.5) H 01/06/19 04:30 Plt Count 107 K/mcL (140-400) L 01/06/19 04:30 Neutrophils # 16.4 K/mcL (1.6-8.9) H 01/06/19 04:30 Lymphocytes # 0.1 K/mcL (0.6-4.6) L 01/06/19 04:30 Nucleated RBCs/100 WBC 0.1 /100 WBC (0) H 01/06/19 04:30 Platelet Estimate Slight Decrease (Normal) L 01/06/19 04:30 Immature Plt Fraction 8.0 % (1.1-6.1) H 01/05/19 03:48 PT 14.2 Seconds (9.4-12.1) H 12/26/18 18:10 APTT 38.6 Seconds (26.0-36.0) H 12/23/18 15:36 Heparin Anti-Xa, Unfract 0.00 IU/mL (0.30-0.70) L 01/01/19 04:30 ABG pH 7.13 pH Units (7.32-7.45) L* 01/03/19 05:01 ABG pCO2 64 mmHg (35-45) H 01/03/19 05:01 ABG pO2 68 mmHg (85-104) L 01/03/19 05:01 ABG O2 Saturation 86 % (95-98) L 01/03/19 05:01 ABG Base Excess -9 mEq/L (-2 to 3) L 01/03/19 05:01 VBG pH 7.10 pH Units (7.32-7.42) L* 01/04/19 15:29 VBG pCO2 72 mmHg (41-51) H* 01/04/19 15:29 VBG pO2 113 mmHg (25-50) H 01/04/19 15:29 Potassium 5.2 mEq/L (3.5-5.1) H 01/06/19 04:30 Carbon Dioxide 22 mEq/L (23-29) L 01/06/19 04:30 BUN > 130 mg/dL (8-23) H 01/06/19 04:30 Creatinine 5.22 mg/dL (0.60-1.20) H 01/06/19 04:30 Est GFR ( Amer) 10 (> 60) L 01/06/19 04:30 Est GFR (Non-Af Amer) 8 (> 60) L 01/06/19 04:30 Glucose 186 mg/dL (70-105) H 01/06/19 04:30 POC Glucose 168 mg/dL (70-99) H 01/08/19 05:58 Uric Acid 11.5 mg/dL (2.3-7.6) H 12/30/18 04:30 Calcium 8.2 mg/dL (8.6-10.3) L 01/06/19 04:30 Phosphorus 6.2 mg/dL (2.7-4.5) H 12/28/18 04:35 AST 9 Units/L (13-39) L 01/06/19 04:30 Lactate Dehydrogenase 380 Units/L (140-271) H 12/26/18 01:30 Troponin I 0.66 ng/mL (< 0.04) H* 12/29/18 00:20 B-Natriuretic Peptide 1332 pg/mL (Less than 100) H 12/23/18 15:36 Serum Total Protein 5.4 g/dL (6.4-8.9) L 01/06/19 04:30 Total Protein (PEP) 5.60 g/dL (6.00-8.30) L 12/25/18 16:09 Albumin 3.3 g/dL (3.5-5.7) L 01/06/19 04:30 Albumin (PEP) 3.21 g/dL (3.75-5.01) L 12/25/18 16:09 Globulin 2.1 g/dL (2.4-3.5) L 01/06/19 04:30 25-OH Vitamin D Total 13 ng/mL (30-80) L 12/25/18 15:54 PTH Intact 285.6 pg/ml (10.0-65.0) H 12/25/18 15:54 Urine Clarity Cloudy (Clear) A 12/29/18 13:45 Ur Specific [place] > 1.030 (1.010-1.025) H 12/29/18 13:45 Urine Protein 30 mg/dL (Neg-Trace) H 12/29/18 13:45 Urine Blood Trace (Negative) H 12/29/18 13:45 Urine Microscopic WBC 15-30 per hpf (0-3) H 12/29/18 13:45 Ur Squamous Epith Cells Many per lpf (None-Few) H 12/29/18 13:45 Amorphous Sediment Many (Few) H 12/26/18 17:25 IgG 665 mg/dL (768-1632) L 12/25/18 16:09 IgM 33 mg/dL (35-263) L 12/25/18 16:09 Complement C3 57 mg/dL (87-200) L 12/25/18 15:54 Complement C4 15 mg/dL (19-52) L 12/25/18 15:54 Free [place] LC, Quant 4.28 mg/dL (0.33-1.94) H 12/25/18 16:09 Free [place]/Lambda Ratio 1.76 (0.26-1.65) H 12/25/18 16:09 Hep Bs Antibody < 3.10 mIU/mL (10.00-) L 12/25/18 16:09 Exam: Vitals: Reviewed General: Obese, Alert and oriented. In mild respiratory distress on BiPAP Skin: mottling of legs up to abdomen and hands up to armpits HEENT: BiPAP in place, dry facial skin Cardiovascular: RRR, normal S1 & S2, no rubs, murmurs or gallops. Lungs: scattered b/l wheezes, rales on the left lower lobe, crackles. Abdomen: Obese, soft, non-tender, no rigidity. Extremities: bilateral edema, No deformity Neurological: lethargic, not following commands. Palliative Quality Palliative Quality: Screen for Code Status: Yes, Screen for Goals of Care: Yes, Screen for Pain: Yes, If Pain Regimen Started, Initiate Bowel Regimen: NA, Screen for Nausea/Vomitting: Yes Code Status: 12/23/18 20:11 Resuscitation Status: Active [RES] Stat Comment: Resuscitation Status: Full Code 12/29/18 11:55 DNR [Resuscitation Status: Active] [RES] Routine Comment: State form completed; patient signed. Resuscitation Status: DNR-Comfort Care-Arrest 01/02/19 16:35 Resuscitation Status: Active [RES] Routine Comment: Resuscitation Status: [id number] - Labs CBC & Chem 7: 01/06/19 04:30 01/06/19 04:30 Labs: Laboratory Results - last 24 hr 01/07/19 01/07/19 01/07/19 00:10 05:38 11:48 POC Glucose 177 H 189 H 198 H 01/07/19 01/08/19 17:35 05:58 POC Glucose 169 H 168 H - ABG Interpretation ABG results: ABG ABG pH 7.13 pH Units (7.32-7.45) L* 01/03/19 05:01 ABG pCO2 64 mmHg (35-45) H 01/03/19 05:01 ABG pO2 68 mmHg (85-104) L 01/03/19 05:01 ABG O2 Saturation 86 % (95-98) L 01/03/19 05:01 PT/INR, D-dimer PT 14.2 Seconds (9.4-12.1) H 12/26/18 18:10 Palliative Scale - Palliative Performance Scale How ambulatory is this patient?: Totally bed bound What is patient's level of activity and evidence of disease?: Unable to do any activity, Extensive disease How much self-care assistance does patient require?: Total care How much oral intake does the patient have?: Mouth care only What is this patient's level of consciousness?: Full or drowsy with or without confusion Palliative Performance Score: 10 % Consult Discharge Plan - Plan Referrals: Michel Giron MD [Primary Care Provider] -
[2019-01-08] MEDS ORDERED: *HR* Morphine 2 MG/ML SYRINGE IVP PRN (15:20)
[2019-01-08] MEDS: D5% in 0.9% NACL 1,000 ML IVC SCH (16:00)
--- NOTE | 2019-01-08 18:31 | Internal Med Progress Note ---
Hospitalist Progress Note - Encounter Date of Encounter: 01/08/19 Time of Encounter: 18:00 - Subjective Interval History: Patient at the end of life care and palliative following Patient continues to require an NIPPV to maintain O2 saturations. - Exam Vitals: Temp Pulse Resp BP Pulse Ox 94 F L 85 26 89/48 84 01/08/19 11:17 01/08/19 11:17 01/08/19 16:04 01/08/19 11:17 01/08/19 16:04 Exam: Gen.: Nonacute distress Skin: Normal color - Assessment and Plan (1) Acute and chronic respiratory failure with hypoxia Current Visit: Yes Status: Acute Assessment and Plan: Will continue NIPPV (2) Non-small cell lung cancer Current Visit: No Status: Chronic Assessment and Plan: Palliative care following - Time Spent with Patient Total time spent is greater than 50% in coordination of care (as documented) at patient's floor/unit and/or counseling patient: Internal Medicine: Result - Labs CBC & Chem 7: 01/06/19 04:30 01/06/19 04:30 - ABG Interpretation ABG results: ABG ABG pH 7.13 pH Units (7.32-7.45) L* 01/03/19 05:01 ABG pCO2 64 mmHg (35-45) H 01/03/19 05:01 ABG pO2 68 mmHg (85-104) L 01/03/19 05:01 ABG O2 Saturation 86 % (95-98) L 01/03/19 05:01 PT/INR, D-dimer PT 14.2 Seconds (9.4-12.1) H 12/26/18 18:10 Consult Discharge Plan - Plan Referrals: Michel Giron MD [Primary Care Provider] - (2) Non-small cell lung cancer Qualifiers: Laterality: unspecified laterality Qualified Code(s): C34.90 - Malignant neoplasm of unspecified part of unspecified bronchus or lung
--- NOTE | 2019-01-08 20:36 | Death Note ---
Pronouncement Note - Date and Time of Date of : 01/08/19 Time of : 19:03 - PCOD Preliminary cause of : Cardiac arrest - Additional Data Confirmation of : no pulse, no respirations, no heart sounds, pupils fixed and dilated Family: at bedside Attending/PCP notified?: Yes Attending physician: Lefty Domínguez Was code activated?: No Autopsy requested?: No psychological examiner notified?: Yes Organ bank notified?: Yes Advance directives: Yes
--- NOTE | 2019-01-08 20:39 | Death Note ---
Discharge Sum: Summary - Date and Time Date of admission: 12/23/18 20:37 Date of : 01/08/19 Time of : 19:03 - Summary Details: I was called by the nurse to pronounce the patient's . On exam no heart sounds or breath sounds were noted after 1 minute of auscultation. Pupils were fixed and dilated without pupillary light reflex. Patient was pronounced on 01/08/2019 at [address] Domínguez will be notified. Family members were present at bedside. Organ donor network was notified and case was declined. The case is no reportable to the pesticide use medical coordinator. Autopsy is declined. - Additional Data Confirmation of as documented by pronouncing clinician: no pulse, no respirations, no heart sounds, pupils fixed and dilated Family: at bedside Attending physician: Lefty Domínguez Was code activated?: No Autopsy requested?: No health claims examiner notified?: Yes Advance directives: Yes Discharge Sum: Diag - PCOD Probable Cause of : Cardiac arrest Discharge Sum: Prov - Provider Primary care physician: Michel Giron MD Admitting clinician: Lefty oDmínguez Attending physician on admission: Lefty Domínguez Consults: 12/23/18 16:56 Consult to Invasive Line Access Team [CONS] Routine Reason for Consult: Picc Line Insertion Line Type: Midline 12/23/18 17:49 Consult to Cardiology [CONS] Stat Comment: Consulting Provider: Card[facility] [place] Reason for Consult: NSTEMI Call Completed: Yes 12/25/18 10:57 Consult to Nephrology [CONS] Routine Consulting Provider: Kidney Mary Kate/LUIS/TINO/LILI Reason for Consult: MARIE on CKD Call Completed: No 12/25/18 11:12 Consult to Pulmonology [CONS] Routine Consulting Provider: Pulm Crit Care & Sleep Mary Kate Reason for Consult: acute hypoxemic respiratory failure Call Completed: Yes 12/26/18 06:14 Consult to Footwear Sales Associate [CONS] Routine Reason for SW Consult: Power of Bone Plant Supervisor 12/26/18 14:16 Consult to Oncology [CONS] Routine Consulting Provider: [facility] Reason for Consult: tumor lysis Call Completed: Yes 12/26/18 15:13 Consult to Palliative Care [CONS] Routine Comment: Consulting Provider: Palliative Care Mary Kate Reason for Consult: SCCC, renal failure Call Completed: No 12/26/18 17:29 Consult to Vascular Surgery [CONS] Routine Consulting Provider: Vascular Surgery Mary Kate Reason for Consult: right renal infarction Call Completed: Yes 12/29/18 07:35 Consult to Critical Care [CONS] Routine Consulting Provider: Pulm [facility] [place] Reason for Consult: acute on chronic hypoxic respiratory failure bipap dependednt, ABG with worsening scidosis, might need intubation, acute on chrnic CHF, lung cancer, renal infarct, ARF Call Completed: Yes 01/01/19 12:01 Consult to Surgery [CONS] Stat Consulting Provider: [facility] Reason for Consult: Feeding Tube placement Patient of Ca lung stage iii, Respiratory failure, [facility] , DM , Pneumonia . Time Notified: 12:05 Call Completed: Yes 01/05/19 09:26 Consult to Nurse Navigator [CONS] Routine Comment: pn Pronouncing clinician: José Luis Guardado
--- NOTE | 2019-01-10 14:22 | Electrocardiograph Report ---
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
== END 2019-01-08 19:03 | disposition expired | DRG 720 ==
LOC: 2NENU 14:57 → EMEROOARM 14:57 → OBSVTOIN 20:37 → SUATTDRO 20:37 → 2NENU 21:37 → ICNU 12-29 12:54 → 2ANU 01-02 19:35
PROVIDERS: ADMIT Internal Medicine; ATTEND Hospitalist